=== PATIENT | male | born 1945 | race Caucasian/White ===

== ENCOUNTER 2022-02-13 10:10 | Emergency (ER) | payer OTHER, SELFPAY ==
[2022-02-13 10:24] VITALS: BP 143/69; PULSE 63; RESP 16; TEMP 36.8; O2SAT 100; BMI 24.3
--- NOTE | 2022-02-13 10:43 | PC.NURSE ---
right thumb irrigated with saline and chlorohexidine. Bleeding was controlled prior to irrigation. Did start to bleed again after. Applied pressure and is now contolled. Dr. Donahue notified.
--- NOTE | 2022-02-13 11:00 | ED.GENADULT ---
HPI - General Adult General Time Seen by Provider: 11:01 Date Seen: 02/13/22 Chief complaint: Laceration/Wound Stated complaint: cut on right hand Time Seen by Provider: 02/13/22 11:00 Source: patient History of Present Illness HPI narrative: Juan is a 76-year-old male presents emergency department with a right thumb laceration. Around 9:00 a.m. this morning patient was cutting some cabbage with a slicer, he ended up cutting the lateral aspect of his right thumb. Patient has been unable to control the bleeding of the last 2 hours, he has not any blood thinners. Range of motion is normal. He has minimal pain. He is up-to-date on his tetanus. Patient denies any numbness or tingling to the area. He has no other concerns at this time Related Data Home Medications Medication Instructions Recorded Confirmed hydrochlorothiazide PO 02/13/22 tamsulosin 0.4 mg capsule (Flomax) 0.4 mg PO DAILY 02/13/22 02/13/22 Allergies Allergy/AdvReac Type Severity Reaction Status Date / Time citalopram Allergy Unknown Verified 02/13/22 10:28 sertraline Allergy Unknown Verified 02/13/22 10:28 Review of Systems Status of ROS: Reports: 10 or more systems reviewed and unremarkable except as noted in History and below [facility] Medical History (Updated 02/13/22 @ 11:24 by Ubaldo Phillips MD) BPH (benign prostatic hyperplasia) Hypertension Surgical History (Updated 02/13/22 @ 10:30 by Araceli Pritchard RN) History of cholecystectomy Social History Smoking Status: Never smoker Do you use any of these nicotine containing products: None Second hand tobacco smoke exposure: No How often do you have a drink containing alcohol: 4 or more times a week How many standard drinks containing alcohol do you have on a typical day: 1 or 2 AUDIT-C Alcohol total score: 4 Non-prescribed substance use: denies use service: No Exam Narrative: Exam Narrative: General: No obvious distress HEENT: Pupils equal round reactive to light, extraocular muscles intact Neck: Supple Lungs: CTA Heart: Normal sinus rhythm Abdomen: Soft nontender Muscle skeletal: Right thumb: small 0.5 cm slice wound to lateral distal thumb, nail plate intact. FROM Neuro: Awake alert orient x3 Const: Vital Signs, click to edit/add: Vital Signs - 24 hr 02/13/22 10:24 Temperature 98.2 F Pulse Rate [Pulse Oximeter] 63 Respiratory Rate 16 Blood Pressure [Le ft Upper Arm] 143/69 H Pulse Oximetry 100 Course Course Hospital Course: Workup will include a application of Surgifoam, based on his type full no laceration repair to be complete, will allow healing by secondary intention. Reevaluation(s) Reevaluation #1: Surgifoam applied, bleeding has stopped, instructions given, he is up-to-date on his tetanus status. Plan to discharge, reasons to return given, all questions answered. Time: 11:33 Time: 11:33 Vital Signs Vital signs: Initial Vital Signs Temperature 98.2 F 02/13/22 10:24 Temperature Source Temporal Artery Scan 02/13/22 10:24 Pulse Rate 63 02/13/22 10:24 Pulse Rhythm 02/13/22 10:24 Respiratory Rate 16 02/13/22 10:24 Blood Pressure 143/69 H 02/13/22 10:24 Blood Pressure Mean 93 02/13/22 10:24 Blood Pressure Position Sitting 02/13/22 10:24 Pulse Oximetry 100 02/13/22 10:24 Oxygen Delivery Method 02/13/22 10:24 Vital Signs Temperature 98.2 F 02/13/22 10:24 Pulse Rate 63 02/13/22 10:24 Respiratory Rate 16 02/13/22 10:24 Blood Pressure 143/69 H 02/13/22 10:24 Pulse Oximetry 100 02/13/22 10:24 Temperature 98.2 F 02/13/22 10:24 Pulse Rate 63 02/13/22 10:24 Respiratory Rate 16 02/13/22 10:24 Blood Pressure 143/69 H 02/13/22 10:24 Pulse Oximetry 100 02/13/22 10:24 Discharge Plan Discharge Clinical Impression: Laceration of finger Patient Disposition: Home, Self-Care Condition: Improved Instructions: Finger Laceration (ED) Additional Instructions: Keep dressing until this evening or tomorrow, allow the surgifoam to fall off eventually. Clean with soap and water, can apply bacitracin ointment or vaseling to the area. Any increased redness, swelling or drainage to return. Activity Level: Activity as Tolerated Prescriptions: No Action hydrochlorothiazide PO 0RF tamsulosin [Flomax] 0.4 mg capsule 0.4 mg PO DAILY 0RF Follow Up/Referrals: Mehran Mello MD [Primary Care Provider] - Stand Alone Forms: [employer] Info Instructions
--- NOTE | 2022-02-13 11:12 | PC.NURSE ---
Dr Phillips in room.
--- NOTE | 2022-02-13 11:34 | ED_ITS ---
HPI - General Adult General Chief complaint: Laceration/Wound Stated complaint: cut on right hand Time Seen by Provider: 02/13/22 11:00 Source: patient Related Data Home Medications Medication Instructions Recorded Confirmed hydrochlorothiazide PO 02/13/22 tamsulosin 0.4 mg capsule (Flomax) 0.4 mg PO DAILY 02/13/22 02/13/22 Allergies Allergy/AdvReac Type Severity Reaction Status Date / Time citalopram Allergy Unknown Verified 02/13/22 10:28 sertraline Allergy Unknown Verified 02/13/22 10:28 [facility] Medical History (Updated 02/13/22 @ 11:24 by Ubaldo Phillips MD) BPH (benign prostatic hyperplasia) Hypertension Surgical History (Updated 02/13/22 @ 10:30 by Araceli Pritchard RN) History of cholecystectomy Social History Smoking Status: Never smoker Do you use any of these nicotine containing products: None Second hand tobacco smoke exposure: No How often do you have a drink containing alcohol: 4 or more times a week How many standard drinks containing alcohol do you have on a typical day: 1 or 2 AUDIT-C Alcohol total score: 4 Non-prescribed substance use: denies use service: No Exam Const: Vital Signs, click to edit/add: Vital Signs - 24 hr 02/13/22 10:24 Temperature 98.2 F Pulse Rate [Pulse Oximeter] 63 Respiratory Rate 16 Blood Pressure [Le ft Upper Arm] 143/69 H Pulse Oximetry 100 Course Course Hospital Course: Workup will include a application of Surgifoam, based on his type full no laceration repair to be complete, will allow healing by secondary intention. Reevaluation(s) Reevaluation #1: Surgifoam applied, bleeding has stopped, plan to discharge, he should follow up with his primary care provider as needed over the next 7-10 days. Written instructions given, reasons to return given. All questions answered. Time: 11:34 Vital Signs Vital signs: Initial Vital Signs Temperature 98.2 F 02/13/22 10:24 Temperature Source Temporal Artery Scan 02/13/22 10:24 Pulse Rate 63 02/13/22 10:24 Pulse Rhythm 02/13/22 10:24 Respiratory Rate 16 02/13/22 10:24 Blood Pressure 143/69 H 02/13/22 10:24 Blood Pressure Mean 93 02/13/22 10:24 Blood Pressure Position Sitting 02/13/22 10:24 Pulse Oximetry 100 02/13/22 10:24 Oxygen Delivery Method 02/13/22 10:24 Vital Signs Temperature 98.2 F 02/13/22 10:24 Pulse Rate 63 02/13/22 10:24 Respiratory Rate 16 02/13/22 10:24 Blood Pressure 143/69 H 02/13/22 10:24 Pulse Oximetry 100 02/13/22 10:24 Temperature 98.2 F 02/13/22 10:24 Pulse Rate 63 02/13/22 10:24 Respiratory Rate 16 02/13/22 10:24 Blood Pressure 143/69 H 02/13/22 10:24 Pulse Oximetry 100 02/13/22 10:24 Discharge Plan Discharge Clinical Impression: Laceration of finger Patient Disposition: Home, Self-Care Condition: Improved Instructions: Finger Laceration (ED) Additional Instructions: Keep dressing until this evening or tomorrow, allow the surgifoam to fall off eventually. Clean with soap and water, can apply bacitracin ointment or vaseling to the area. Any increased redness, swelling or drainage to return. Activity Level: Activity as Tolerated Prescriptions: No Action hydrochlorothiazide PO 0RF tamsulosin [Flomax] 0.4 mg capsule 0.4 mg PO DAILY 0RF Follow Up/Referrals: Mehran Mello MD [Primary Care Provider] - Stand Alone Forms: [employer] Info Instructions
--- OUTSIDE RECORDS SUMMARY | 2022-03-05 18:32 | XMS_ITS | Encounter Summary ---
:1945 Author Organization [facility] Address [address] [place] [address] Care Team Providers Name Role Phone Brianna Rios MD Unavailable Encounter Details Date Type Department Care Team Description 06/08/2018 Telephone [facility] Ear Nose and Patel, Keri Manuel MD Throat [address] [place], [place] [address] [place] [address] [facility] Floor [place] [phone] Social History Tobacco Use Types Packs/Day Years Used Date Never Assessed Sex Assigned at Date Recorded Not on file documented as of this encounter Miscellaneous Notes Telephone Encounter - Sara Donis - 06/08/2018 3:00 PM CST no notes from her he will need to call and get the referral faxed over to us our fax# [phone]. Thank you! [facility] documented in this encounter Plan of Treatment Not on filedocumented as of this encounter Visit Diagnoses Not on filedocumented in this encounter Care Teams Machine Group Leader Relationship Specialty Start Date End Date rBianna Rios, Referring Physician Student in organized 04/15 [facility] care [address] [place] [address] education/[place] [address] program documented as of this encounter
--- OUTSIDE RECORDS SUMMARY | 2022-03-05 18:32 | XMS_ITS | Clinical Summary ---
:1945 Author Organization [facility] Address [address] [place] [address] Care Team Providers Name Role Phone Brianna Rios MD Unavailable Allergies Active Allergy Reactions Severity Noted Date Comments Citalopram Other (See Comments) 05/25/2018 Pain an d sensitivity in genitals Medications Medication Sig Dispensed Refills Start Date End Date Status ferrous sulfate 325 Take 325 mg by 0 05/25/2018 Active (65 Fe) MG TBEC EC mouth tablet oxyCODONE IR TAKE 1-2 TABLETS 0 06/04/2018 Active (ROXICODONE) 5 MG BY MOUTH EVERY 4 tablet HOURS NEEDED Active Problems Problem Noted Date Acute pulmonary embolism 09/28/2015 Overview: Overview: Several on R side - 09/24/15 DVT (deep venous thrombosis) 09/19/2015 Iron deficiency anemia due to chronic blood loss 09/19 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 Hypertension 08/03/2015 Social History Tobacco Use Types Packs/Day Years Used Date Never Assessed Sex Assigned at Date Recorded Not on file Plan of Treatment Health Maintenance Due Date Last Done Comments ADVANCE CARE PLANNING 1945 ANNUAL REVIEW OF HM ORDERS 1945 CT COLONOGRAPHY 1945 FIT-DNA (Cologuard) 1945 FIT 1945 FLEX SIG 1945 COVID-19 Vaccine (#1) 1945 COLONOSCOPY 1956 COLORECTAL CANCER SCREENING 1956 HEPATITIS C SCREENING 1964 DTAP/TDAP/TD IMMUNIZATION (1 1971 - Tdap) LIPID 1981 ZOSTER IMMUNIZATION (1 of 2) 1996 AORTIC ANEURYSM SCREENING 2011 (SYSTEM ASSIGNED) FALL RISK ASSESSMENT 2011 MEDICARE ANNUAL WELLNESS 2011 VISIT Pneumococcal Vaccine: 65+ 2011 Years (1 - PCV) PHQ-2 (once per calendar 07/28/2021 06/15/2018 year) INFLUENZA VACCINE (#1) 2022 04/27/2018, 04/28/2015 HEPATITIS B IMMUNIZATION Aged Out No long er eligible based on patient's age to complete this to pic IPV IMMUNIZATION Aged Out No longer eligi ble based on patient's age to complete this to pic MENINGITIS IMMUNIZATION Aged Out No longe r eligible based on patient's age to complete this to pic Insurance Payer Benefit Plan Subscriber ID Effective Phone Address Typ e / Group Dates [employer] [place] [employer] [id number] 2018-Julian [phone] [facility] OFFICE O F [facility] [address] [facility] [address] [address] [place] [address] Care Teams Timber Feller Relationship Specialty Start Date End Date Brianna Rios, Referring Physician Student in organized 04/[address] education/[place] [address] program
--- OUTSIDE RECORDS SUMMARY | 2022-03-05 18:32 | XMS_ITS | Encounter Summary ---
:1945 Author Organization [facility] Address [address] [place] [address] Care Team Providers Name Role Phone Brianna Rios MD Unavailable Reason for Visit Reason Onset Date Comments *-*INCOMING RECORDS*-* 06/15/2018 Encounter Details Date Type Department Care Team Description 06/15/2018 PRE VISIT Health Ear Nose and Patel, Keri Manuel MD *-*INCOMING RECORDS*-* Throat [address] [facility] [address] [facility] [address] [place], [place] [id number] [phone] Social History Tobacco Use Types Packs/Day Years Used Date Never Assessed Sex Assigned at Date Recorded Not on file documented as of this encounter Miscellaneous Notes Telephone Encounter - Sara Donis - 06/09/2018 12:39 PM CST FUTURE VISIT INFORMATION FUTURE VISIT INFORMATION: ?? Date: 06/15/2018 ?? Time: 5:00 ?? Location: [facility] REFERRAL INFORMATION: ?? Referring provider: Brianna Rios ?? Referring providers clinic: [facility] ?? Reason for visit/diagnosis Recurrent Epistaxis, consult for injections RECORDS REQUESTED FROM: Clinic name Comments Records Status Imaging Status [facility] OFFICE VISIT: 04/09/2018, 03/24/2018 EXTERNAL NONE E GROUP MANAGER documented in this encounter Plan of Treatment Not on filedocumented as of this encounter Visit Diagnoses Not on filedocumented in this encounter Care Teams Stack Clerk Relationship Specialty Start Date End Date Blanca, Brianna, Referring Physician Student in organized 04/15 [facility] [address] [facility] education/[place] [address] program documented as of this encounter
--- OUTSIDE RECORDS SUMMARY | 2022-03-05 18:32 | XMS_ITS | Continuity of Care Document ---
:1945 Author Organization [facility] Care Team Providers Name Role Phone [facility] Unavailable Unavailable Problems Combined list of problems from Department of Defense and Veterans Affairs facilities. It does not include entries that were removed or entered in error. 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 (SNOMED CT 26648680) History of deep vein Active Condition Oct 29 [place] thrombosis 2016 [facility] Entered By: JHONY ROMANO Comment: LLE 08/2015 Hypertensive disorder Active Condition [facility] [facility] Insomnia Active Condition [place] ([facility]OC) Iron deficiency Active Condition [facility] anemia due to chronic (CBOC) blood loss Irritable bowel Active Condition [facility] syndrome with (CB[facility]) diarrhea Ocular migraine Active Condition [facility] ([facility]) Pulmonary embolism Active Condition Oct 292016 (CBOC) Entered By: JHONY ROMANO Comment: history of multiple small PEs in his right chest 08/2015 Routine General Active Condition [facility] Medical Examination HCS at a Health Care Facility * (ICD-9-CM V70.0) Varicose veins of Active Condition [facility] left lower limb (CBO C) Diagnosis: ICD-10-CM active Diagnosis [place] G47.9 Sleep disorder, [facility] unspecifiedwith Provider Comments: Sleep Disorder, unspecified Diagnosis: ICD-10-CM active Diagnosis [place] F41.9 Anxiety (CBOC) disorder, unspecifiedwith Provider Comments: Exposure to combat ([facility] [id number]) Diagnosis: ICD-10-CM active Diagnosis [place] 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 Provider Comments: HHT - Hereditary hemorrhagic telangiectasia ([facility] [id number]) Diagnosis: ICD-10-CM active Diagnosis [place] Z71.89 Other [facility] specified counselingwith Provider Comments: Other specified counseling Diagnosis: ICD-10-CM active Diagnosis [place] Z23 Encounter for (C BOC) immunizationwith Provider Comments: Encounter for Immunization Diagnosis: ICD-10-CM active Diagnosis [place] I10 Essential (CBOC) (primary) hypertensionwith Provider Comments: Hypertensive disorder ([facility] [id number]) Diagnosis: ICD-10-CM active Diagnosis [place] H90.3 Sensorineural [facility] hearing loss, bilateralwith Provider Comments: Sensorineural hearing loss, bilateral Diagnosis: ICD-10-CM active Diagnosis [place] R35.1 Nocturiawith V [facility] HCS Provider Comments: Nocturia Diagnosis: ICD-10-CM active Diagnosis [place] 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 Medications provided include 1) outpatient medications from the last 15 months, and 2) patient-reported medications. Medication Details Route Status Patient Prescription Prescription Last Ordering Order Source Instructions Expires Number Dispense Provider Date Date CARBOXYMETH INSTILL BOTH 12/09/2021 [id number] W WONG ZAMARRIPA 12/08/ [place] YLCELLULOSE 1 DROP EYES 2 ISTIN S 2020 [place] [facility] NA 0.25% IN BOTH HCS SOLN,OPH EYES TWICE A DAY FOR DRY EYES CHOLECALCIF TAKE ONE ORALLY ACTIVE POMIN 03/23 / [place] KEVIN 25MCG TABLET H N 2017 ER (1,000UNIT) BY MOUTH (CBOC ) TAB EVERY DAY CORAL TAKE 4 ORAL ACTIVE IMAN [place] 12/19/ ST. CALCIUM TAB CAPS WN 2006 CLOUD DAILY/TA [facility] B 500MG BY MOUTH FERROUS SO4 TAKE ONE ORALLY 12/15/2021 [id number] MONICA SMALL 12/14/ [place] 325MG TAB TABLET 1 2020 ER BY MOUTH SHAR (CBOC) TWO TIMES A DAY FOR IRON DEFICINE CY ANEMIA FERROUS TAKE 25 ORAL ACTIVE LITADA 12/19/ ST. SULFATE TAB MG BY WN 2006 CLOUD MOUTH [facility] DAILY FINASTERIDE TAKE ONE ORALLY ACTIVE 02/22/2023 [id number] CARI UMANZOR 02/22/ [place] 5MG TAB TABLET 2 MALIKA L 2021 [facility] BY MOUTH HCS EVERY DAY FOR PROSTATE FINASTERIDE TAKE ONE ORALLY DISCONT 03/01/2022 [id number] CARI UMANZOR 03/01/ [place] 5MG TAB TABLET INUED 2 MALIKA L 2020 [place] [facility] BY MOUTH HCS EVERY DAY FOR PROSTATE HYDROCHLORO TAKE ONE ORALLY SUSPEND 01/25/2023 [id number] GEOVANNY,CL 01/27/ [place] THIAZIDE TABLET ED 2 2021 ER 25MG TAB BY MOUTH SHAR (CBOC ) EVERY DAY HYDROCHLORO TAKE ONE ORALLY DISCONT 01/26/2022 [id number] GEOVANNY,CL 01/26/ [place] THIAZIDE TABLET INUED 2 2020 ER 25MG TAB BY MOUTH SHAR (CBOC ) EVERY DAY MAGNESIUM TAKE 200 ORAL ACTIVE IMAN [place] 12/19/ S T. TAB,EC MG TWO 2006 CLOUD TABS BY [facility] MOUTH DAILY NON VA MED USE ACTIVE POMIN 03/23/ [facility] [facility] NOT LISTED CALCIUM H N 2018 ER 1000 (CBOC) MG/PHOSP HORUS 500 MG/MAGNE SIUM 500 MG - 1 TABLET oral EVERY DAY OMEGA 3 TAKE 380 ORAL ACTIVE IMAN [place] 12/19/ ST. CAP/TAB MG BY 2006 CLOUD MOUTH [facility] DAILY POTASSIUM TAKE 520 ORAL ACTIVE LITADA 12/19/ S T. TAB MG BY 2006 CLOUD MOUTH [facility] THREE DAILY TAMSULOSIN TAKE TWO ORALLY ACTIVE 07/27/2022 [id number] TH OMAS,CL 07/29/ [place] HCL 0.4MG CAPSULES 2 2021 ER CAP BY MOUTH SHAR (CBOC) EVERY DAY FOR PROSTATE , FOR BLADDER EMPTYING TAMSULOSIN TAKE TWO ORALLY 07/19/2021 [id number] T HOMAS,CL 07/18/ [place] HCL 0.4MG CAPSULES 1 2019 ER CAP BY MOUTH SHAR (CBOC) EVERY DAY FOR PROSTATE , FOR BLADDER EMPTYING Allergies, Adverse Reactions, Alerts Combined list of allergies from Department of Defense and Veterans Affairs facilities. It does not include entries that were removed or entered in error. Substance Category Reaction Severity Reaction Status Date Comments S ource type Reported CITALOPRAM Propensity Visual Propensity active [place] to adverse disturbance to adverse 4 [place] [facility] reactions reactions HCS to drug to drug (finding) (finding) SERTRALINE Propensity Generalized Propensity active [place] to adverse aches and to adverse 3 [place] [facility] reactions pains reactions HCS to drug to drug (finding) (finding) Immunizations Combined list of available immunizations from the Department of Defense and Veterans Affairs facilities. 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 COVID-19 3 complet PFR; [place] (PFIZER), 2021 ed [id number]; ER MRNA, LNP-S, 02 (CBOC) PF, 30 2 MCG/0.3 ML DOSE, DAWNA-SUCROSE (AGES 12+ YEARS) COVID-19 3 complet PFR; [place] (PFIZER), 2020 ed [id number]; [place] [facility] MRNA, LNP-S, 02 HCS PF, 30 1 MCG/0.3 ML DOSE INFLUENZA, complet [place] INJECTABLE, 2020 ed [place] [facility] QUADRIVALENT, HCS PRESERVATIVE FREE COVID-19 2 complet PFR; [place] (PFIZER), 2020 ed [id number]; ER MRNA, LNP-S, (CBOC) PF, 30 1 MCG/0.3 ML DOSE COVID-19 1 complet PFR; [place] (PFIZER), 2020 ed [id number]; ER MRNA, LNP-S, 02 (CBOC) PF, 30 1 MCG/0.3 ML DOSE INFLUENZA, complet [place] INJECTABLE, 2019 ed ER QUADRIVALENT, (CBOC) PRESERVATIVE FREE ZOSTER 2 complet [place] EST RECOMBINANT 2019 ed ER (CBOC) ZOSTER 1 complet [place] EST RECOMBINANT 2018 ed ER (CBOC) INFLUENZA, complet [place] SEASONAL, 2019 ed [place] [facility] INJECTABLE, HC S PRESERVATIVE FREE INFLUENZA, complet [place] SEASONAL, 2018 ed ER INJECTABLE, (C BOC) PRESERVATIVE FREE INFLUENZA, complet [place] HIGH DOSE 2018 ed ER SEASONAL (CBOC ) INFLUENZA, complet [place] HIGH DOSE 2015 ed ER SEASONAL (CBOC ) INFLUENZA, complet [place] HIGH DOSE 2014 ed ER SEASONAL (CBOC ) PNEUMOCOCCAL complet Wyet h [facility] CONJUGATE PCV 2015 ed Pharm, ER 13 [id number], (CBOC) 10/11 INFLUENZA, complet [place] UNSPECIFIED 2013 ed ER FORMULATION (C BOC) PNEUMOCOCCAL, complet chanell k and [facility] UNSPECIFIED 2013 ed co ER FORMULATION [id number] (CBOC) [id number] ZOSTER LIVE complet merk and [facility] 2013 ed co ER [id number] (CBOC) 56pnm15 TDAP complet [facility]LA[facility]/SMI H AYWARD 2012 ed TH/[place]AH[place] CBOC LOT# [id number] A EXP: 04/13/15 INFLUENZA, complet ST. UNSPECIFIED 2005 ed CL OUD FORMULATION [facility] TD(ADULT) complet S T. UNSPECIFIED 2005 ed CL OUD FORMULATION [facility] INFLUENZA, complet ST. UNSPECIFIED 2004 ed CL OUD FORMULATION [facility] Results Combined list of recent chemistry, hematology and other laboratory results from Department of Defense and Veterans Affairs, ranging from 15 months to all on record, depending upon the facility. Order Results Value Reference Date Interpretation Specimen Commen ts Source Name Range COMPREHEN CREATININE 1.1 0.7 - 1.2 02/15 Specimen Type: PLASMA [place] SIVE [MASS/VOLUM /2021 No comment e ntered. IS [facility] METABOLIC E] IN SERUM Ordering Provider: MONICA RODRIGUEZ PANEL+MG OR PLASMA Report Relea sed Date/Time: Aug 14, 2021 11:15 AM Reporting Lab: [facility] [address] [place] [address] Performing Lab: [facility] [address] [place] [address] COMPREHEN UREA 15 8 - 02/15 Specimen Type: PLASMA [place] S[place] NITROGEN /2021 No comment ente red. IS [facility] METABOLIC [MASS/VOLUM Ordering Provider: MONICA RODRIGUEZ PANEL+MG E] IN SERUM Report Rel eased Date/Time: Aug 14, 2021 11:15 AM OR PLASMA Reporting Lab : [facility] [address] [place] [address] Performing Lab: [facility] [address] [place] [facility] [address] COMPREHEN GLUCOSE 96 74 - 100 02/15 Specimen Type : PLASMA [place] SIVE [MASS/VOLUM /2021 No comment e ntered. IS [facility] METABOLIC E] IN SERUM Ordering Provider: MONICA RODRIGUEZ PANEL+MG OR PLASMA Report Relea sed Date/Time: Aug 14, 2021 11:15 AM Reporting Lab: [facility] [address] [place] [facility] [address] Performing Lab: [facility] [address] [place] [facility] [address] COMPREHEN SODIUM 138 136 - 145 02/15 Specimen Typ e: PLASMA [place] SIVE [MOLES/VOLU No comment e ntered. IS [facility] METABOLIC ME] IN Ordering Prov ider: MONICA RODRIGUEZ PANEL+MG SERUM OR Report Releas ed Date/Time: Aug 14, 2021 11:15 AM PLASMA Reporting Lab: [facility] [address] [place] [facility] [address] Performing Lab: [facility] [address] [place] [facility] [address] COMPREHEN POTASSIUM 4.0 3.5 - 5.1 02/15 Specimen T ype: PLASMA [place] SIVE [MOLES/VOLU No comment e ntered. IS [facility] METABOLIC ME] IN Ordering Prov ider: MONICA RODRIGUEZ PANEL+MG SERUM OR Report Releas ed Date/Time: Aug 14, 2021 11:15 AM PLASMA Reporting Lab: [facility] [address] [place] [facility] [address] Performing Lab: [facility] [address] [place] [facility] [address] COMPREHEN CHLORIDE 104 98 - 107 02/15 Specimen Typ e: PLASMA [place] SIVE [MOLES/VOLU /2021 No comment e ntered. IS [facility] METABOLIC ME] IN Ordering Prov ider: MONICA RODRIGUEZ PANEL+MG SERUM OR Report Releas ed Date/Time: Aug 14, 2021 11:15 AM PLASMA Reporting Lab: [facility] [address] [place] [facility] [address] Performing Lab: [facility] [address] [place] [facility] [address] COMPREHEN CARBON 26 22 - 29 02/15 Specimen Type: PLASMA [place] DIOXIDE, /2021 No comment ente red. IS [facility] METABOLIC TOTAL Ordering Prov ider: MONICA RODRIGUEZ PANEL+MG [MOLES/VOLU Report Rel eased Date/Time: Aug 14, 2021 11:15 AM ME] IN Reporting Lab: [facility] SERUM OR ONE [place] [facility] [address] PLASMA Performing Lab: [facility] [address] [place] [address] COMPREHEN CALCIUM 9.6 8.4 - 10.2 02/15 Specimen Ty pe: PLASMA [place] SIVE [MASS/VOLUM /2021 No comment e ntered. IS [facility] METABOLIC E] IN SERUM Ordering Provider: MONICA RODRIGUEZ PANEL+MG OR PLASMA Report Relea sed Date/Time: Aug 14, 2021 11:15 AM Reporting Lab: [facility] [address] [place] [facility] [address] Performing Lab: [facility] [address] [place] [facility] [address] COMPREHEN PROTEIN 7.5 6.0 - 8.3 02/15 Specimen Typ e: PLASMA [place] SIVE [MASS/VOLUM /2021 No comment e ntered. IS [facility] METABOLIC E] IN SERUM Ordering Provider: MONICA RODRIGUEZ PANEL+MG OR PLASMA Report Relea sed Date/Time: Aug 14, 2021 11:15 AM Reporting Lab: [facility] [address] [place] [address] Performing Lab: [facility] [address] [place] [facility] [address] COMPREHEN ALBUMIN 4.0 3.5 - 5.2 02/15 Specimen Typ e: PLASMA [place] SIVE [MASS/VOLUM /2021 No comment e ntered. IS [facility] METABOLIC E] IN SERUM Ordering Provider: MONICA RODRIGUEZ PANEL+MG OR PLASMA Report Relea sed Date/Time: Aug 14, 2021 11:15 AM Reporting Lab: [facility] [address] [place] [address] Performing Lab: [facility] [address] [place] [address] COMPREHEN BILIRUBIN.T 0.8 0.2 - 1.2 02/15 Specimen Type: PLASMA [place] OTAL /2021 No comment enter ed. IS [facility] METABOLIC [MASS/VOLUM Ordering Provider: MONICA RODRIGUEZ PANEL+MG E] IN SERUM Report Rel eased Date/Time: Aug 14, 2021 11:15 AM OR PLASMA Reporting Lab : [facility] [address] [place] [address] Performing Lab: [facility] [address] [place] [address] COMPREHEN MAGNESIUM 2.0 1.6 - 2.6 02/15 Specimen T ype: PLASMA [place] [MASS/VOLUM /2021 No comment e ntered. IS [facility] METABOLIC E] IN SERUM Ordering Provider: MONICA RODRIGUEZ PANEL+MG OR PLASMA Report Relea sed Date/Time: Aug 14, 2021 11:15 AM Reporting Lab: [facility] [address] [place] [facility] [address] Performing Lab: [facility] [address] [place] [facility] [address] COMPREHEN ANION GAP 8 5 - 15 02/15 Specimen Typ e: PLASMA [place] IN SERUM OR /2021 No comment e ntered. IS [facility] METABOLIC PLASMA Ordering Prov ider: MONICA RODRIGUEZ PANEL+MG Report Release d Date/Time: Aug 14, 2021 11:15 AM Reporting Lab: [facility] [address] [place] [facility] [address] Performing Lab: [facility] [address] [place] [address] COMPREHEN ALKALINE 62 40 - 150 02/15 Specimen Typ e: PLASMA [place] PHOSPHATASE /2021 No comment e ntered. IS [facility] METABOLIC [ENZYMATIC Ordering P rovider: MONICA RODRIGUEZ PANEL+MG ACTIVITY/VO Report Rel eased Date/Time: Aug 14, 2021 11:15 AM LUME] IN Reporting Lab: [facility] SERUM OR ONE [facility] [place] [facility] [address] PLASMA Performing Lab: [facility] [address] [place] [facility] [address] COMPREHEN ALANINE 13 <55 - 55 02/15 Specimen Type : [place]ASMA [place] AMINOTRANSF /2021 No comment e ntered. IS [facility] METABOLIC ERASE Ordering Prov ider: MONICA RODRIGUEZ PANEL+MG [ENZYMATIC Report Rele ased Date/Time: Aug 14, 2021 11:15 AM ACTIVITY/VO Reporting L ab: [facility] LUME] IN [address] [place] [facility] [address] SERUM OR Performing Lab : [facility] PLASMA [address] [place] [facility] [address] COMPREHEN ASPARTATE 19 <34 - 34 02/15 Specimen Ty pe: PLASMA [place] AMINOTRANSF /2021 No comment e ntered. IS [facility] METABOLIC ERASE Ordering Prov ider: MONICA RODRIGUEZ PANEL+MG [ENZYMATIC Report Rele ased Date/Time: Aug 14, 2021 11:15 AM ACTIVITY/VO Reporting L ab: [facility] LUME] IN [address] [facility] [address] SERUM OR Performing Lab : [facility] PLASMA [address] [place] [facility] [address] COMPREHEN GLOMERULAR 70 60 02/15 Specimen Ty pe: PLASMA [place] FILTRATION /2021 No comment en tered. IS [facility] METABOLIC RATE/1.73 Ordering Pr ovider: MONICA RODRIGUEZ PANEL+MG SQ Report Release d Date/Time: Aug 14, 2021 11:15 AM M.PREDICTED Reporting L ab: [facility] [VOLUME [address] [place] [facility] [address] RATE/AREA] Performing L ab: [facility] IN SERUM, [address] [facility] [address] PLASMA OR BLOOD BY CREATININE- BASED FORMULA (CKD-EPI) CBC & LEUKOCYTES 4.33 4.0 - 11.0 02/15 Specimen T ype: BLOOD [place] DIFF [#/VOLUME] /2021 Comment: Aut omated Differential Performed IS [facility] IN BLOOD BY Ordering Pr ovider: MONICA RODRIGUEZ AUTOMATED Report Releas ed Date/Time: Aug 14, 2021 11:15 AM COUNT Reporting Lab: [facility] [address] [place] [facility] [address] Performing Lab: [facility] [address] [place] [facility] [address] CBC & ERYTHROCYTE 3.93 4.6 - 6.2 02/15 L Specimen T ype: BLOOD [place] DIFF S /2021 Comment: Automa armand Differential Performed IS [place] H[facility] [#/VOLUME] Ordering Pro vider: MONICA RODRIGUEZ IN BLOOD BY Report Rele ased Date/Time: Aug 14, 2021 11:15 AM AUTOMATED Reporting Lab : [facility] COUNT [address] [place] [facility] [address] Performing Lab: [facility] [address] [place] [facility] [address] CBC & HEMOGLOBIN 13.2 13.5 - 02/15 L Specimen Type : BLOOD [place] DIFF [MASS/VOLUM 17.9 /2021 Comment: Au tomated Differential Performed IS [place] [facility] E] IN BLOOD Ordering Pr ovider: MONICA RODRIGUEZ Report Released Date/Time: Aug 14, 2021 11:15 AM Reporting Lab: [facility] [address] [place] [facility] [address] Performing Lab: [facility] [address] [place] [facility] [address] CBC & HEMATOCRIT 39.1 41 - 54 02/15 L Specimen Type : BLOOD [place] DIFF [VOLUME /2021 Comment: Automa armand Differential Performed IS [facility] FRACTION] Ordering Prov ider: MONICA RODRIGUEZ OF BLOOD BY Report Rele ased Date/Time: Aug 14, 2021 11:15 AM AUTOMATED Reporting Lab : [facility] [address] [place] [facility] [address] Performing Lab: [facility] [address] [place] [facility] [address] CBC & MCV 99.5 80 - 100 02/15 Specimen Type: BLOOD [place] DIFF [ENTITIC /2021 Comment: Autom ated Differential Performed IS [facility] VOLUME] BY Ordering Pro vider: MONICA RODRIGUEZ AUTOMATED Report Releas ed Date/Time: Aug 14, 2021 11:15 AM COUNT Reporting Lab: [facility] [address] [facility] [address] Performing Lab: [facility] [address] [facility] [address] CBC & MCH 33.6 27 - 33 02/15 H Specimen Type: B LOOD [place] DIFF [ENTITIC /2021 Comment: Autom ated Differential Performed IS [facility] MASS] BY Ordering Provi tracy: MONICA RODRIGUEZ AUTOMATED Report Releas ed Date/Time: Aug 14, 2021 11:15 AM COUNT Reporting Lab: [facility] [address] [place] [facility] [address] Performing Lab: [facility] [address] [facility] [address] CBC & MCHC 33.8 32.0 - 02/15 Specimen Type: B LOOD [place] DIFF [MASS/VOLUM 37.5 /2021 Comment: Au tomated Differential Performed IS [facility] E] BY Ordering Provid er: MONICA RODRIGUEZ AUTOMATED Report Releas ed Date/Time: Aug 14, 2021 11:15 AM COUNT Reporting Lab: [facility] [address] [place] [address] Performing Lab: [facility] [address] [place] [address] CBC & PLATELETS 270 150 - 400 02/15 Specimen Typ e: BLOOD [place] DIFF [#/VOLUME] /2021 Comment: Aut omated Differential Performed IS [facility] IN BLOOD BY Ordering Pr ovider: MONICA RODRIGUEZ AUTOMATED Report Relea sed Date/Time: Aug 14, 2021 11:15 AM COUNT Reporting Lab: [facility] [address] [place] [facility] [address] Performing Lab: [facility] [address] [place] [facility] [address] CBC & PLATELET 10.0 7.4 - 10.4 02/15 Specimen Typ e: BLOOD [place] DIFF MEAN VOLUME /2021 Comment: Au tomated Differential Performed IS [facility] [ENTITIC Ordering Provi tracy: MONICA RODRIGUEZ VOLUME] IN Report Relea sed Date/Time: Aug 14, 2021 11:15 AM BLOOD BY Reporting Lab: [facility] AUTOMATED [address] [facility] [address] COUNT Performing Lab: [facility] [address] [place] [facility] [address] CBC & NEUTROPHILS 65.0 02/15 Specimen Typ e: BLOOD [place] DIFF /100 /2021 Comment: Automa armand Differential Performed IS [facility] LEUKOCYTES Ordering Pro vider: MONICA RODRIGUEZ IN BLOOD BY Report Rele ased Date/Time: Aug 14, 2021 11:15 AM MANUAL Reporting Lab: [facility] [address] [place] [facility] [address] Performing Lab: [facility] [address] [place] [facility] [address] CBC & LYMPHOCYTES 22.6 02/15 Specimen Typ e: BLOOD [place] DIFF /100 /2021 Comment: Automa armand Differential Performed IS [facility] LEUKOCYTES Ordering Pro vider: MONICA RODRIGUEZ IN BLOOD BY Report Rele ased Date/Time: Aug 14, 2021 11:15 AM MANUAL Reporting Lab: [facility] [address] [place] [facility] [address] Performing Lab: [facility] [address] [place] [facility] [address] CBC & MONOCYTES/1 9.9 02/15 Specimen Typ e: BLOOD [place] DIFF 00 Comment: Automa armand Differential Performed IS [facility] LEUKOCYTES Ordering Pro vider: MONICA RODRIGUEZ IN BLOOD BY Report Rele ased Date/Time: Aug 14, 2021 11:15 AM AUTOMATED Reporting Lab : [facility] [address] [place] [id number] Performing Lab: [facility] [address] [place] [id number] CBC & EOSINOPHILS 1.8 02/15 Specimen Typ e: BLOOD [place] DIFF /100 /2021 Comment: Automa armand Differential Performed IS [facility] LEUKOCYTES Ordering Pro vider: MONICA RODRIGUEZ IN BLOOD BY Report Rele ased Date/Time: Aug 14, 2021 11:15 AM AUTOMATED Reporting Lab : [facility] [address] [place] [facility] [address] Performing Lab: [facility] [address] [place] [facility] [address] CBC & BASOPHILS/1 0.2 02/15 Specimen Typ e: BLOOD [place] DIFF 00 Comment: Automa armand Differential Performed IS [facility] LEUKOCYTES Ordering Pro vider: MONICA RODRIGUEZ IN BLOOD BY Report Rele ased Date/Time: Aug 14, 2021 11:15 AM MANUAL Reporting Lab: [facility] [address] [place] [facility] [address] Performing Lab: [facility] [address] [place] [facility] [address] CBC & ERYTHROCYTE 13.1 11.5 - 02/15 Specimen Typ e: BLOOD [place] DIFF DISTRIBUTIO 14.5 Comment: Au tomated Differential Performed IS [facility] N WIDTH Ordering Provid er: MONICA RODRIGUEZ [RATIO] BY Report Relea sed Date/Time: Aug 14, 2021 11:15 AM AUTOMATED Reporting Lab : [facility] COUNT [address] [place] [facility] [address] Performing Lab: [facility] [address] [place] [facility] [address] CBC & LYMPHOCYTES 0.98 1.0 - 4.0 02/15 L Specimen T ype: BLOOD [place] DIFF [#/VOLUME] /2021 Comment: Aut omated Differential Performed IS [facility] IN BLOOD BY Ordering Pr ovider: MONICA RODRIGUEZ AUTOMATED Report Releas ed Date/Time: Aug 14, 2021 11:15 AM COUNT Reporting Lab: [facility] [address] [place] [facility] [address] Performing Lab: [facility] [address] [place] [facility] [address] CBC & MONOCYTES 0.43 0.1 - 1.0 02/15 Specimen Typ e: BLOOD [place] DIFF [#/VOLUME] /2021 Comment: Aut omated Differential Performed [place] [facility] IN [place]LOOD BY Ordering Pr ovider: MONICA RODRIGUEZ AUTOMATED Report Releas ed Date/Time: Aug 14, 2021 11:15 AM COUNT Reporting Lab: [facility] [address] [place] [facility] [address] Performing Lab: [facility] [address] [place] [facility] [address] CBC & NEUTROPHILS 2.81 2.0 - 7.7 02/15 Specimen T ype: BLOOD [place] DIFF [#/VOLUME] /2021 Comment: Aut omated Differential Performed [place] [facility] IN [place]LOOD BY Ordering Pr sarwater: MONICA RODRIGUEZ AUTOMATED Report Releas ed Date/Time: Aug 14, 2021 11:15 AM COUNT Reporting Lab: [facility] [address] [place] [facility] [address] Performing Lab: [facility] [address] [place] [facility] [address] CBC & EOSINOPHILS 0.08 0 - 0.5 02/15 Specimen Typ e: BLOOD [place] DIFF [#/VOLUME] /2021 Comment: Aut omated Differential Performed [place] [facility] IN [place]LOOD BY Ordering Pr ovider: MONICA RODRIGUEZ AUTOMATED Report Releas ed Date/Time: Aug 14, 2021 11:15 AM COUNT Reporting Lab: [facility] [address] [place] [facility] [address] Performing Lab: [facility] [address] [place] [facility] [address] CBC & BASOPHILS 0.01 0 - 0.2 02/15 Specimen Type: BLOOD [place] DIFF [#/VOLUME] /2021 Comment: Aut omated Differential Performed [place] [facility] IN [place]LOOD BY Ordering Pr ovider: MONICA RODRIGUEZ AUTOMATED Report Releas ed Date/Time: Aug 14, 2021 11:15 AM COUNT Reporting Lab: [facility] [address] [place] [facility] [address] Performing Lab: [facility] [address] [place] [facility] [address] CBC & IG(META,MYE 0.5 02/15 Specimen Typ e: BLOOD [place] DIFF LO,PRO) /2021 Comment: Automa armand Differential Performed IS [facility] Ordering Provid er: MONICA RODRIGUEZ Report Released Date/Time: Aug 14, 2021 11:15 AM Reporting Lab: [facility] [address] [place] [facility] [address] Performing Lab: [facility] [address] [place] [facility] [address] CBC & IMMATURE 0.02 0 - 0.1 02/15 Specimen Type: BLOOD [place] DIFF GRANULOCYTE /2021 Comment: Au tomated Differential Performed IS [facility] S Ordering Provid er: MONICA RODRIGUEZ [PRESENCE] Report Relea sed Date/Time: Aug 14, 2021 11:15 AM IN BLOOD BY Reporting L ab: [facility] AUTOMATED [facility] [address] COUNT Performing Lab: [facility] [address] [place] [facility] [address] IRON IRON 101 65 - 175 07/26 Specimen Type: PLASMA [facility] GROUP [MASS/VOLUM /2020 No comment e ntered. (CBOC) E] IN SERUM Ordering Pr ovider: EVANS SMALL OR PLASMA Report Releas ed Date/Time: Jul 26, 2021 10:58 AM Reporting Lab: [facility] [address] [place] [facility] [address] Performing Lab: [facility] [address] [place] [facility] [address] IRON IRON 200 250 - 425 07/26 L Specimen Type: PLASMA [facility] GROUP BINDING /2020 No comment enter ed. (CBOC) CAPACITY Ordering Provi tracy: EVANS SMALL [MASS/VOLUM Report Rele ased Date/Time: Jul 26, 2021 10:58 AM E] IN SERUM Reporting L ab: [facility] OR PLASMA [facility] [address] Performing Lab: [facility] [address] [place] [facility] [address] IRON FERRITIN 56.1 21.8 - 07/26 Specimen Type: PLASMA [place] GROUP [MASS/VOLUM 274.7 /2020 No comment e ntered. (CBOC) E] IN SERUM Ordering Pr ovider: EVANS SMALL OR PLASMA Report Releas ed Date/Time: Jul 26, 2021 10:58 AM Reporting Lab: [facility] [address] [place] [facility] [address] Performing Lab: [facility] ONE [facility] [address] [place] [address] IRON IRON 51 20 - 50 12/30 H Specimen Type: P MONA EDUARD[facility] GROUP SATURATION /2020 No comment en tered. (CBOC) Ordering Provid er: EVANS SMALL Report Released Date/Time: Jul 26, 2021 10:58 AM Reporting Lab: [facility] ONE [facility] [address] [place] MUÑ[place] [address] Performing Lab: [facility] [address] [place] [address] IRON TRANSFERRIN 160 163 - 382 12/30 L Specimen T ype: PLASMA [place] GROUP [MASS/VOLUM /2020 No comment e ntered. (CBOC) E] IN SERUM Ordering Pr ovider: EVANS SMALL OR PLASMA Report Releas ed Date/Time: Jul 26, 2021 10:58 AM Reporting Lab: [facility] ONE [facility] [address] [place] MUÑ[place] [address] Performing Lab: [facility] [address] [place] MUÑ[place] [address] BASIC CREATININE 1.1 0.7 - 1.2 12 Specimen Ty pe: PLASMA [place] METABOLIC [MASS/VOLUM /2020 No comment entered. (CBOC) PANEL+MG E] IN SERUM Ordering P rovider: EVANS SMALL OR PLASMA Report Releas ed Date/Time: Jul 26, 2021 10:58 AM Reporting Lab: [facility] [address] [place] MU[place] [address] Performing Lab: [facility] [address] [place] MUÑ[place] [address] BASIC UREA 15 8 - 26 12 Specimen Type: P MONA EDUARDO METABOLIC NITROGEN /2020 No comment en tered. (CBOC) PANEL+MG [MASS/VOLUM Ordering P rovider: EVANS SMALL E] IN SERUM Report Rele ased Date/Time: Jul 26, 2021 10:58 AM OR PLASMA Reporting Lab : [facility] ONE [facility] [address] [place] MUÑ[place] [address] Performing Lab: [facility] [address] [place] MUÑ[place] [address] BASIC GLUCOSE 91 74 - 100 12 Specimen Type: PLASMA [place] METABOLIC [MASS/VOLUM /2020 No comment entered. (CBOC) PANEL+MG E] IN SERUM Ordering P rovider: EVANS SMALL OR PLASMA Report Releas ed Date/Time: Jul 26, 2021 10:58 AM Reporting Lab: [facility] [address] [place] [address] Performing Lab: [facility] [address] [place] [address] BASIC SODIUM 138 136 - 145 07/26 Specimen Type: PLASMA EDU[place] METABOLIC [MOLES/VOLU /2020 No comment entered. (CBOC) PANEL+MG ME] IN Ordering Provi tracy: EVANS SMALL SERUM OR Report Release d Date/Time: Jul 26, 2021 10:58 AM PLASMA Reporting Lab: [facility] [address] [place] [address] Performing Lab: [facility] [address] [place] [address] BASIC POTASSIUM 4.2 3.5 - 5.1 07/26 Specimen Typ e: PLASMA ED[place] METABOLIC [MOLES/VOLU /2020 No comment entered. (CBOC) PANEL+MG ME] IN Ordering Provi tracy: EVANS SMALL SERUM OR Report Release d Date/Time: Jul 26, 2021 10:58 AM PLASMA Reporting Lab: [facility] [address] [place] MUÑ[place] [address] Performing Lab: [facility] [address] [place] [address] BASIC CHLORIDE 101 98 - 107 07/26 Specimen Type: PLASMA EDUARDO METABOLIC [MOLES/VOLU /2020 No comment entered. (CBOC) PANEL+MG ME] IN Ordering Provi tracy: EVANS SMALL SERUM OR Report Release d Date/Time: Jul 26, 2021 10:58 AM PLASMA Reporting Lab: [facility] [address] [place] MUÑ[place] [address] Performing Lab: [facility] [address] [place] [address] BASIC CARBON 28 - 29 07/26 Specimen Type: P MONA EDUARDO METABOLIC DIOXIDE, /2020 No comment en tered. (CBOC) PANEL+MG TOTAL Ordering Provi tracy: EVANS SMALL [MOLES/VOLU Report Rele ased Date/Time: Jul 26, 2021 10:58 AM ME] IN Reporting Lab: [facility] SER[facility] [address] MUÑ[place] [address] PLASMA Performing Lab: [facility] [address] [place] [address] BASIC CALCIUM 9.7 8.4 - 10.2 07/26 Specimen Type : PLASMA [place] METABOLIC [MASS/VOLUM /2020 No comment entered. (CBOC) PANEL+MG E] IN SERUM Ordering P rovider: EVANS SMALL OR PLASMA Report Releas ed Date/Time: Jul 26, 2021 10:58 AM Reporting Lab: [facility] [address] [place] [address] Performing Lab: [facility] [address] [place] [address] BASIC MAGNESIUM 2.0 1.6 - 2.6 07/26 Specimen Typ e: PLASMA [place] METABOLIC [MASS/VOLUM /2020 No comment entered. (CBOC) PANEL+MG E] IN SERUM Ordering P rovider: EVANS SMALL OR PLASMA Report Releas ed Date/Time: Jul 26, 2021 10:58 AM Reporting Lab: [facility] [address] [place] [address] Performing Lab: [facility] [address] [place] [address] BASIC ANION GAP 9 5 - 15 07/26 Specimen Type: PLASMA EDUARD[place] METABOLIC IN SERUM OR /2020 No comment entered. (CBOC) PANEL+MG PLASMA Ordering Provi tracy: EVANS SMALL Report Released Date/Time: Jul 26, 2021 10:58 AM Reporting Lab: [facility] [address] [place] [address] Performing Lab: [facility] [address] [place] [address] BASIC GLOMERULAR 65 60 07/26 Specimen Type : PLASMA EDUARDO METABOLIC FILTRATION /2020 No comment entered. (CBOC) PANEL+MG RATE/1.73 Ordering Pro vider: EVANS SMALL SQ Report Released Date/Time: Jul 26, 2021 10:58 AM M.PREDICTED Reporting L ab: [facility] [VOLUME [address] [place] [address] RATE/AREA] Performing L ab: [facility] IN SERUM, [address] [facility] [address] PLASMA OR BLOOD BY CREATININE- BASED FORMULA (CKD-EPI) LIPID CHOLESTEROL 140 <199 - 199 07/26 Specimen Type: PLASMA EDUARDO PANEL,NON [MASS/VOLUM /2020 No comment entered. (CBOC) -FASTING E] IN SERUM Ordering P rovider: EVANS SMALL OR PLASMA Report Releas ed Date/Time: Jul 26, 2021 10:58 AM Reporting Lab: [facility] [address] [place] [address] Performing Lab: [facility] [address] [place] MUÑ[place] [address] LIPID CHOLESTEROL 44 40 07/26 Specimen Typ e: PLASMA EDUARDO PANEL,NON IN HDL /2020 No comment ent ered. (CBOC) -FASTING [MASS/VOLUM Ordering P rovider: EVANS SMALL] IN SERUM Report Rele ased Date/Time: Jul 26, 2021 10:58 AM OR PLASMA Reporting Lab : [facility] [address] [place] [address] Performing Lab: [facility] ONE [facility] [address] [place] [address] LIPID CHOLESTEROL 78 <99 - 99 07/26 Specimen Ty pe: PLASMA EDUARDO PANEL,NON IN LDL /2020 No comment ent ered. (CBOC) -FASTING [MASS/VOLUM Ordering P rovider: EVANS SMALL] IN SERUM Report Rele ased Date/Time: Jul 26, 2021 10:58 AM OR PLASMA Reporting Lab : [facility] BY ONE [facility] [address] [place] MUÑ[place] [address] CALCULATION Performing Lab: [facility] ONE [facility] [address] [place] [address] LIPID CHOLESTEROL 18 <29 - 29 07/26 Specimen Ty pe: PLASMA EDUARDO PANEL,NON IN VLDL /2020 No comment ent ered. (CBOC) -FASTING [MASS/VOLUM Ordering P rovider: EVANS SMALL] IN SERUM Report Rele ased Date/Time: Jul 26, 2021 10:58 AM OR PLASMA Reporting Lab : [facility] BY ONE [facility] [address] [place] MUÑ[place] [address] CALCULATION Performing Lab: [facility] ONE [facility] [address] [place] MUÑ[place] [address] LIPID CHOLESTEROL 96 <129 - 129 07/26 Specimen Type: PLASMA EDUARDO PANEL,NON NON HDL /2020 No comment ent ered. (CBOC) -FASTING [MASS/VOLUM Ordering P rovider: EVANS SMALL] IN SERUM Report Rele ased Date/Time: Jul 26, 2021 10:58 AM OR PLASMA Reporting Lab : [facility] [address] [place] MUÑ[place] [address] Performing Lab: [facility] ONE [facility] [address] [place] [address] LIPID TRIGLYCERID 92 <149 - 149 07/26 Specimen Type: PLASMA EDUARD[place] PANEL,NON E No comment ent ered. (CBOC) -FASTING [MASS/VOLUM Ordering P rovider: EVANS SMALL E] IN SERUM Report Rele ased Date/Time: Jul 26, 2021 10:58 AM OR PLASMA Reporting Lab : [facility] [address] [place] [address] Performing Lab: [facility] [address] [place] [address] CBC LEUKOCYTES 4.47 4.0 - 11.0 07/26 Specimen T ype: BLOOD [place] [#/VOLUME] /2020 No comment en tered. (CBOC) IN BLOOD BY Ordering Pr ovider: EVANS SMALL AUTOMATED Report Releas ed Date/Time: Jul 26, 2021 10:58 AM COUNT Reporting Lab: [facility] [address] [place] MUÑ[place] [address] Performing Lab: [facility] [address] [place] [address] CBC ERYTHROCYTE 4.35 4.6 - 6.2 12/ L Specimen T ype: BLOOD [place] S /2020 No comment enter ed. (CBOC) [#/VOLUME] Ordering Pro vider: EVANS SMALL IN BLOOD BY Report Rele ased Date/Time: Jul 26, 2021 10:58 AM AUTOMATED Reporting Lab : [facility] COUNT [address] [place] [facility] [address] Performing Lab: [facility] [address] [place] MUÑ[place] [address] CBC HEMOGLOBIN 15.1 13.5 - 07/26 Specimen Type : BLOOD [place] [MASS/VOLUM 17.9 /2020 No comment e ntered. (CBOC) E] IN BLOOD Ordering Pr ovider: EVANS SMLAL Report Released Date/Time: Jul 26, 2021 10:58 AM Reporting Lab: [facility] [address] [place] MUÑ[place] [address] Performing Lab: [facility] [address] [place] [facility] [address] CBC HEMATOCRIT 45.1 41 - 54 07/26 Specimen Type : BLOOD [place] [VOLUME /2020 No comment enter ed. (CBOC) FRACTION] Ordering Prov ider: EVANS SMALL OF BLOOD BY Report Rele ased Date/Time: Jul 26, 2021 10:58 AM AUTOMATED Reporting Lab : [facility] COUNT [address] [place] MUÑ[place] [address] Performing Lab: [facility] [address] [place] [address] CBC MCV 103.7 80 - 100 12/30 H Specimen Type: BLOOD [place] [ENTITIC /2020 No comment ente red. (CBOC) VOLUME] BY Ordering Pro vider: EVANS SMALL AUTOMATED Report Releas ed Date/Time: Jul 26, 2021 10:58 AM COUNT Reporting Lab: [facility] [address] [place] [facility] [address] Performing Lab: [facility] [address] [place] [address] CBC MCH 34.7 27 - 33 12/30 H Specimen Type: B LOOD EDUARDO [ENTITIC /2020 No comment ente red. (CBOC) MASS] BY Ordering Provi tracy: EVANS SMALL AUTOMATED Report Releas ed Date/Time: Jul 26, 2021 10:58 AM COUNT Reporting Lab: [facility] [address] [place] MUÑ[place] [address] Performing Lab: [facility] [address] [place] MUÑ[place] [address] CBC MCHC 33.5 32.0 - 12 Specimen Type: B TIMOTHYOD EDUARDO [MASS/VOLUM 37.5 /2020 No comment e ntered. (CBOC) E] BY Ordering Provid er: EVANS SMALL AUTOMATED Report Releas ed Date/Time: Jul 26, 2021 10:58 AM COUNT Reporting Lab: [facility] [address] [place] [address] Performing Lab: [facility] [address] [place] [address] CBC PLATELETS 254 150 - 400 07/26 Specimen Typ e: BLOOD [place]O [#/VOLUME] /2020 No comment en tered. (CBOC) IN BLOOD BY Ordering Pr ovider: EVANS SMALL AUTOMATED Report Releas ed Date/Time: Jul 26, 2021 10:58 AM COUNT Reporting Lab: [facility] [address] [place] [facility] [address] Performing Lab: [facility] [address] [place] [facility] [address] CBC PLATELET 10.0 7.4 - 10.4 07/26 Specimen Typ e: BLOOD EDUARDO MEAN VOLUME /2020 No comment e ntered. (CBOC) [ENTITIC Ordering Provi tracy: EVANS SMALL VOLUME] IN Report Relea sed Date/Time: Jul 26, 2021 10:58 AM BLOOD BY Reporting Lab: [facility] AUTOMATED [address] [facility] [address] COUNT Performing Lab: [facility] [address] [place] [address] CBC ERYTHROCYTE 13.2 11.5 - 07/26 Specimen Typ e: BLOOD EDUARDO DISTRIBUTIO 14.5 No comment e ntered. (CBOC) N WIDTH Ordering Provid er: EVANS SMALL [RATIO] BY Report Relea sed Date/Time: Jul 26, 2021 10:58 AM AUTOMATED Reporting Lab : [facility] COUNT [address] [place] [facility] [address] Performing Lab: [facility] [address] [place] [facility] [address] PSA PROSTATE 0.36 <4.00 - 07/26 Specimen Type: [place] SPECIFIC AG 4.00 No comment e ntered. IS [place] [facility] [MASS/VOLUM Ordering Pr ovider: IRENE UMANZOR E] IN SERUM Report Rele ased Date/Time: Feb 28, 2021 05:23 PM OR PLASMA Reporting Lab : [facility] [address] [place] [facility] [address] Performing Lab: [facility] [address] [place] [facility] [address] IRON IRON 101 65 - 175 07/26 Specimen Type: SERUM [place] GROUP [MASS/VOLUM /2020 No comment e ntered. IS [facility] E] IN SERUM Ordering Pr ovider: MONICA RODRIGUEZ OR PLASMA Report Releas ed Date/Time: Jan 10, 2021 11:21 AM Reporting Lab: [facility] [address] [place] MUÑ[place] [address] Performing Lab: [facility] [address] [place] [facility] [address] IRON IRON 195 250 - 425 07/26 L Specimen Type: SERUM [place] GROUP /2020 No comment enter ed. IS [facility] CAPACITY Ordering Provi tracy: MONICA RODRIGUEZ [MASS/VOLUM Report Rele ased Date/Time: Jan 10, 2021 11:21 AM E] IN SERUM Reporting L ab: [facility] OR PLASMA [address] [facility] [address] Performing Lab: [facility] [address] [place] [facility] [address] IRON FERRITIN 47.4 21.8 - 07/26 Specimen Type: SERUM [place] GROUP [MASS/VOLUM 274.7 No comment e ntered. IS [facility] E] IN SERUM Ordering Pr ovider: MONICA RODRIGUEZ OR PLASMA Report Releas ed Date/Time: Jan 10, 2021 11:21 AM Reporting Lab: [facility] [address] [place] MUÑ[place] [address] Performing Lab: [facility] [address] [place] [address] IRON IRON 52 20 - 50 12/30 H Specimen Type: S SHAKIRA [place] GROUP SATURATION /2020 No comment en tered. IS [facility] Ordering Provid er: MONICA RODRIGUEZ Report Released Date/Time: Jan 10, 2021 11:21 AM Reporting Lab: [facility] [address] [place] [facility] [address] Performing Lab: [facility] [address] [place] [facility] [address] IRON TRANSFERRIN 156 163 - 382 12/30 L Specimen T ype: SERUM [place] GROUP [MASS/VOLUM /2020 No comment e ntered. IS [facility] E] IN SERUM Ordering Pr ovider: MONICA RODRIGUEZ OR PLASMA Report Releas ed Date/Time: Jan 10, 2021 11:21 AM Reporting Lab: [facility] [address] [place] MUÑ[place] [address] Performing Lab: [facility] [address] [place] [address] BASIC CREATININE 1.1 0.7 - 1.2 07/26 Specimen Ty pe: PLASMA [place] METABOLIC [MASS/VOLUM /2020 No comment entered. IS [facility] PANEL+MG E] IN SERUM Ordering P rovider: MONICA RODRIGUEZ OR PLASMA Report Releas ed Date/Time: Jan 10, 2021 11:21 AM Reporting Lab: [facility] [address] [place] [address] Performing Lab: [facility] [address] [place] [facility] [address] BASIC UREA 14 8 - 26 07/26 Specimen Type: P LASMA [place] METABOLIC NITROGEN /2020 No comment en tered. IS [facility] PANEL+MG [MASS/VOLUM Ordering P rovider: MONICA RODRIGUEZ E] IN SERUM Report Rele ased Date/Time: Jan 10, 2021 11:21 AM OR PLASMA Reporting Lab : [facility] [address] [place] [address] Performing Lab: [facility] [address] [place] [address] BASIC GLUCOSE 91 74 - 100 07/26 Specimen Type: PLASMA [place] METABOLIC [MASS/VOLUM /2020 No comment entered. IS [facility] PANEL+MG E] IN SERUM Ordering P rovider: MONICA RODRIGUEZ OR PLASMA Report Releas ed Date/Time: Jan 10, 2021 11:21 AM Reporting Lab: [facility] [address] [place] [address] Performing Lab: [facility] [address] [facility] [address] BASIC SODIUM 139 136 - 145 07/26 Specimen Type: PLASMA [place] METABOLIC [MOLES/VOLU No comment entered. IS [facility] PANEL+MG ME] IN Ordering Provi tracy: MONICA RODRIGUEZ SERUM OR Report Release d Date/Time: Jan 10, 2021 11:21 AM PLASMA Reporting Lab: [facility] [address] [place] [facility] [address] Performing Lab: [facility] [address] [facility] [address] BASIC POTASSIUM 4.2 3.5 - 5.1 07/26 Specimen Typ e: PLASMA [place] METABOLIC [MOLES/VOLU No comment entered. IS [facility] PANEL+MG ME] IN Ordering Provi tracy: MONICA RODRIGUEZ SERUM OR Report Release d Date/Time: Jan 10, 2021 11:21 AM PLASMA Reporting Lab: [facility] [address] [place] [address] Performing Lab: [facility] [address] [facility] [address] BASIC CHLORIDE 103 98 - 107 07/26 Specimen Type: PLASMA [place] METABOLIC [MOLES/VOLU /2020 No comment entered. IS [facility] PANEL+MG ME] IN Ordering Provi tracy: MONICA RODRIGUEZ SERUM OR Report Release d Date/Time: Jan 10, 2021 11:21 AM PLASMA Reporting Lab: [facility] [address] [place] [facility] [address] Performing Lab: [facility] [address] [place] [facility] [address] BASIC CARBON 28 22 - 29 07/26 Specimen Type: P LASMA [place] METABOLIC DIOXIDE, /2020 No comment en tered. IS [facility] PANEL+MG TOTAL Ordering Provi tracy: MONICA RODRIGUEZ [MOLES/VOLU Report Rele ased Date/Time: Jan 10, 2021 11:21 AM ME] IN Reporting Lab: [facility] SERUM OR [address] [facility] [address] PLASMA Performing Lab: [facility] [address] [place] [address] BASIC CALCIUM 9.6 8.4 - 10.2 07/26 Specimen Type : PLASMA [place] METABOLIC [MASS/VOLUM /2020 No comment entered. IS [place] [facility] PANEL+MG E] IN SERUM Ordering P rovider: MONICA RODRIGUEZ OR PLASMA Report [facility] ed Date/Time: Jan 10, 2021 11:21 AM Reporting Lab: [facility] [address] [place] [facility] [address] Performing Lab: [facility] [address] [place] [address] BASIC MAGNESIUM 2.1 1.6 - 2.6 07/26 Specimen Typ e: PLASMA [place] METABOLIC [MASS/VOLUM /2020 No comment entered. IS [facility] PANEL+MG E] IN SERUM Ordering P rovider: MONICA RODRIGUEZ OR PLASMA Report [facility] ed Date/Time: Jan 10, 2021 11:21 AM Reporting Lab: [facility] [address] [place] [facility] [address] Performing Lab: [facility] [address] [place]UNDIO MUÑ[place] [address] BASIC ANION GAP 8 5 - 15 07/26 Specimen Type: PLASMA [place] METABOLIC IN SERUM OR /2020 No comment entered. IS [place] [facility] PANEL+MG PLASMA Ordering Provi tracy: MONICA RODRIGUEZ Report Released Date/Time: Jan 10, 2021 11:21 AM Reporting Lab: [facility] [address] [place]UNDIO MUÑ[place] [address] Performing Lab: [facility] [address] [place] [facility] [address] BASIC GLOMERULAR 65 60 07/26 Specimen Type : PLASMA [place] METABOLIC FILTRATION /2020 No comment entered. IS [facility] PANEL+MG RATE/1.73 Ordering Pro vider: MONICA RODRIGUEZ SQ Report Released Date/Time: Jan 10, 2021 11:21 AM M.PREDICTED Reporting L ab: [facility] [VOLUME [address] [place]DIO MUÑ[place] [address] RATE/AREA] Performing L ab: [facility] IN SERUM, [address] RAJESH [facility] [address] PLASMA OR BLOOD BY CREATININE- BASED FORMULA (CKD-EPI) CBC & LEUKOCYTES 4.41 4.0 - 11.0 12 Specimen T ype: BLOOD [place] DIFF [#/VOLUME] /2020 Comment: Aut omated Differential Performed IS [place] [facility] IN BLOOD BY Ordering Pr ovider: MONICA RODRIGUEZ AUTOMATED Report Releas ed Date/Time: Jan 10, 2021 11:21 AM COUNT Reporting Lab: [facility] [address] [place] [facility] [address] Performing Lab: [facility] [address] [place] [facility] [address] CBC & ERYTHROCYTE 4.36 4.6 - 6.2 12/ L Specimen T ype: BLOOD [place] DIFF S /2020 Comment: Automa armand Differential Performed [place] [facility] [#/VOLUME] Ordering Pro vider: MONICA RODRIGUEZ IN BLOOD BY Report Rele ased Date/Time: Jan 10, 2021 11:21 AM AUTOMATED Reporting Lab : [facility] COUNT [address] [place] [facility] [address] Performing Lab: [facility] [address] [place] [facility] [address] CBC & HEMOGLOBIN 15.1 13.5 - 07/26 Specimen Type : BLOOD [place] DIFF [MASS/VOLUM 17.9 /2020 Comment: Au tomated Differential Performed IS [facility] E] IN BLOOD Ordering Pr ovider: MONICA RODRIGUEZ Report Released Date/Time: Jan 10, 2021 11:21 AM Reporting Lab: [facility] [address] [place] [facility] [address] Performing Lab: [facility] [address] [place] [facility] [address] CBC & HEMATOCRIT 45.0 41 - 54 07/26 Specimen Type : BLOOD [place] DIFF [VOLUME /2020 Comment: Automa armand Differential Performed [place] [facility] FRACTION] Ordering Prov ider: MONICA RODRIGUEZ OF BLOOD BY Report Rele ased Date/Time: Jan 10, 2021 11:21 AM AUTOMATED Reporting Lab : [facility] H[facility] COUNT [address] [place] [facility] [address] Performing Lab: [facility] [address] [place] [facility] [address] CBC & MCV 103.2 80 - 100 12/30 H Specimen Type: BLOOD [place] DIFF [ENTITIC /2020 Comment: Autom ated Differential Performed IS [facility] VOLUME] BY Ordering Pro vider: MONICA RODRIGUEZ AUTOMATED Report Releas ed Date/Time: Jan 10, 2021 11:21 AM COUNT Reporting Lab: [facility] [address] [place] [facility] [address] Performing Lab: [facility] [address] [place] [facility] [address] CBC & MCH 34.6 27 - 33 12/30 H Specimen Type: B LOOD [place] DIFF [ENTITIC /2020 Comment: Autom ated Differential Performed IS [facility] MASS] BY Ordering Provi tracy: MONICA RODRIGUZE AUTOMATED Report Releas ed Date/Time: Jan 10, 2021 11:21 AM COUNT Reporting Lab: [facility] [address] [place] [facility] [address] Performing Lab: [facility] [address] [place] [facility] [address] CBC & MCHC 33.6 32.0 - 12 Specimen Type: B LOOD [place] DIFF [MASS/VOLUM 37.5 /2020 Comment: Au tomated Differential Performed IS [facility] E] BY Ordering Provid er: MONICA RODRIGUEZ AUTOMATED Report Releas ed Date/Time: Jan 10, 2021 11:21 AM COUNT Reporting Lab: [facility] [address] [place] [facility] [address] Performing Lab: [facility] [address] [place] [facility] [address] CBC & PLATELETS 244 150 - 400 07/26 Specimen Typ e: BLOOD [place] DIFF [#/VOLUME] /2020 Comment: Aut omated Differential Performed IS [facility] IN BLOOD BY Ordering Pr ovider: MONICA RODRIGUEZ AUTOMATED Report Releas ed Date/Time: Jan 10, 2021 11:21 AM COUNT Reporting Lab: [facility] [address] [place] [facility] [address] Performing Lab: [facility] [address] [place] [facility] [address] CBC & PLATELET 10.0 7.4 - 10.4 07/26 Specimen Typ e: BLOOD [place] DIFF MEAN VOLUME /2020 Comment: Au tomated Differential Performed [place] [facility] [ENTITIC Ordering Provi tracy: MONICA RODRIGUEZ VOLUME] IN Report Relea sed Date/Time: Jan 10, 2021 11:21 AM BLOOD BY Reporting Lab: [facility] AUTOMATED [address] [facility] [address] COUNT Performing Lab: [facility] [address] [place] [facility] [address] CBC & NEUTROPHILS 65.8 07/26 Specimen Typ e: BLOOD [place] DIFF / Comment: Automa armand Differential Performed IS [facility] LEUKOCYTES Ordering Pro vider: MONICA RODRIGUEZ IN BLOOD BY Report Rele ased Date/Time: Jan 10, 2021 11:21 AM MANUAL Reporting Lab: [facility] COUNT [address] [place] [facility] [address] Performing Lab: [facility] [address] [place] [facility] [address] CBC & LYMPHOCYTES 21.5 07/26 Specimen Typ e: BLOOD [place] DIFF / Comment: Automa armand Differential Performed IS [facility] LEUKOCYTES Ordering Pro vider: MONICA RODRIGUEZ IN BLOOD BY Report Rele ased Date/Time: Jan 10, 2021 11:21 AM MANUAL Reporting Lab: [facility] COUNT [address] [place] [facility] [address] Performing Lab: [facility] [address] [place] [facility] [address] CBC & MONOCYTES/1 10.2 07/26 Specimen Typ e: BLOOD [place] DIFF Comment: Automa armand Differential Performed IS [facility] LEUKOCYTES Ordering Pro vider: MONICA RODRIGUEZ IN BLOOD BY Report Rele ased Date/Time: Jan 10, 2021 11:21 AM AUTOMATED Reporting Lab : [facility] COUNT [address] [place] [facility] [address] Performing Lab: [facility] [address] [place] [facility] [address] CBC & EOSINOPHILS 1.8 07/26 Specimen Typ e: BLOOD [place] DIFF / Comment: Automa armand Differential Performed IS [facility] LEUKOCYTES Ordering Pro vider: MONICA RODRIGUEZ IN BLOOD BY Report Rele ased Date/Time: Jan 10, 2021 11:21 AM AUTOMATED Reporting Lab : [facility] COUNT [address] [place] [facility] [address] Performing Lab: [facility] [address] [place] [facility] [address] CBC & BASOPHILS/1 0.5 07/26 Specimen Typ e: BLOOD [place] DIFF Comment: Automa armand Differential Performed IS [facility] LEUKOCYTES Ordering Pro vider: MONICA RODRIGUEZ IN BLOOD BY Report Rele ased Date/Time: Jan 10, 2021 11:21 AM MANUAL Reporting Lab: [facility] COUNT [address] [place] [facility] [address] Performing Lab: [facility] [address] [place] [facility] [address] CBC & ERYTHROCYTE 13.2 11.5 - 07/26 Specimen Typ e: BLOOD [place] DIFF DISTRIBUTIO 14.5 Comment: Au tomated Differential Performed [place] [facility] N WIDTH Ordering Provid er: MONICA RODRIGUEZ [RATIO] BY Report Relea sed Date/Time: Jan 10, 2021 11:21 AM AUTOMATED Reporting Lab : [facility] COUNT [address] [place] [facility] [address] Performing Lab: [facility] [address] [place] [facility] [address] CBC & LYMPHOCYTES 0.95 1.0 - 4.0 12 L Specimen T ype: BLOOD [place] DIFF [#/VOLUME] /2020 Comment: Aut omated Differential Performed [place] [facility] IN [place]LOOD BY Ordering Pr ovider: MONICA RODRIGUEZ AUTOMATED Report Releas ed Date/Time: Jan 10, 2021 11:21 AM COUNT Reporting Lab: [facility] [address] [place] [facility] [address] Performing Lab: [facility] [address] [place] [facility] [address] CBC & MONOCYTES 0.45 0.1 - 1.0 07/26 Specimen Typ e: BLOOD [place] DIFF [#/VOLUME] /2020 Comment: Aut omated Differential Performed [place] [facility] IN [place]LOOD BY Ordering Pr ovider: MONICA RODRIGUEZ AUTOMATED Report Releas ed Date/Time: Jan 10, 2021 11:21 AM COUNT Reporting Lab: [facility] [address] [place] [facility] [address] Performing Lab: [facility] [address] [place] [facility] [address] CBC & NEUTROPHILS 2.90 2.0 - 7.7 07/26 Specimen T ype: BLOOD [place] DIFF [#/VOLUME] /2020 Comment: Aut omated Differential Performed [place] [facility] IN [place]LOOD BY Ordering Pr ovider: MONICA RODRIGUEZ AUTOMATED Report Releas ed Date/Time: Jan 10, 2021 11:21 AM COUNT Reporting Lab: [facility] [address] [place] [facility] [address] Performing Lab: [facility] [address] [place] MUÑ[place] [address] CBC & EOSINOPHILS 0.08 0 - 0.5 07/26 Specimen Typ e: BLOOD [place] DIFF [#/VOLUME] /2020 Comment: Aut omated Differential Performed IS [facility] IN BLOOD BY Ordering Pr ovider: MONICA RODRIGUEZ AUTOMATED Report Releas ed Date/Time: Jan 10, 2021 11:21 AM COUNT Reporting Lab: [facility] [address] [place] MUÑ[place] [address] Performing Lab: [facility] [address] [place] [address] CBC & BASOPHILS 0.02 0 - 0.2 07/26 Specimen Type: BLOOD [place] DIFF [#/VOLUME] /2020 Comment: Aut omated Differential Performed IS [facility] IN BLOOD BY Ordering Pr ovider: MONICA RODRIGUEZ AUTOMATED Report Releas ed Date/Time: Jan 10, 2021 11:21 AM COUNT Reporting Lab: [facility] [address] [place] MUÑ[place] [address] Performing Lab: [facility] [address] [place] [address] CBC & IG(META,MYE 0.2 07/26 Specimen Typ e: BLOOD [place] DIFF LO,PRO) /2020 Comment: Automa armand Differential Performed IS [facility] Ordering Provid er: MONICA RODRIGUEZ Report Released Date/Time: Jan 10, 2021 11:21 AM Reporting Lab: [facility] [address] [place] MUÑ[place] [address] Performing Lab: [facility] [address] [place] [address] CBC & IMMATURE 0.01 0 - 0.1 07/26 Specimen Type: BLOOD [place] DIFF GRANULOCYTE /2020 Comment: Au tomated Differential Performed IS [facility] S Ordering Provid er: MONICA RODRIGUEZ [PRESENCE] Report Relea sed Date/Time: Jan 10, 2021 11:21 AM IN BLOOD BY Reporting L ab: [facility] AUTOMATED [address] [facility] [address] COUNT Performing Lab: [facility] [address] [place] [facility] [address] Vital Signs Combined list of inpatient and outpatient Vital Signs from Department of Defense and Veterans Affairs, ranging from 12 months to all on record, depending upon the facility. Vital Sign Value Date Comments Source SYSTOLIC BLOOD PRESSURE 136 07/26/2021 10:25:05 [facility] ([facility]) DIASTOLIC BLOOD PRESSURE 72 07/26/2021 10:25:05 [place] ([facility]) PULSE OXIMETRY 98% 07/26/2021 10:25:[address] ([facility]) WEIGHT 173.9 07/26/2021 10:25:05 [facility] ([facility]) BMI 26kg/m2 07/26/2021 10:25:05 [facility] ([facility]) PAIN 0 07/26/2021 10:25:05 [facility] ([facility]) HEIGHT 68.75 07/26/2021 10:25:05 [facility] ([facility]) TEMPERATURE 97.1 07/26/2021 10:25:05 [facility] ([facility]) PULSE 58 07/26/2021 10:25:05 [facility] ([facility]) RESPIRATION 18 07/26/2021 10:25:05 [facility] ([facility]) Encounters Combined list of: 1) Encounters from Department of Veterans Affairs facilities going back up to the last 18 months, not all [place] inpatient encounters are included; 2) Encounters from the Department of Defense facilities going back up to 280 months. Location Location Encounter Encounter Reason Attending ADM DC Stat us Disposition Source Details Type Number For Provider [place] [address]-9.61 Diagnos CHIROS,CHR 09/07 [place] 45 MINUTES [id number] is: ISTINE E E R 83 ICD-10- (CBOC) CM F41.9 Anxiety disorde r, unspeci fied
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
with Provide r Comment s: Exposur e to combat ([facility] [id number] 07) [place] [address]-5 Diagnos CHIROS,CHR 11/23 [place] 45 MINUTES [id number] is: ISTINE E /2020 E R 49 ICD-10- (CBOC) CM F41.9 Anxiety disorde r, unspeci fied
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
with Provide r Comment s: Sensori neural hearing loss, bilater al Outpatient 07106-7.61 O'HERNESTO, 01/30 [place] Encounter [id number] [place] [address]-6.61 Diagnos CHIROS,[facility] 02/06 [place] 45 MINUTES [id number] is: ISTINE E E R 37 ICD-10- (CBOC) CM F41.9 Anxiety disorde r, unspeci fied
with Provide r Comment s: Exposur e to combat ([facility] [id number] 07) OFFICE O/P 60480-7 Diagnos GABRIELLA,ANT 02/22 [place] EST [id number] is: ER MINIMAL 11 ICD-10- (CBOC) PROB CM I10 Essenti al (primar y) hyperte nsion<b r/>with Provide r Comment s: Hyperte nsive disorde r ([facility] [id number] 3) OFFICE 13674-9 [facility] [place] CONSULTATI [id number] is: EN L [place] ICD-10- HCS CM R35.1 Nocturi a
w ith Provide r Comment [place]: [place] [address]161 Diagnos CHIROS,CHR 03/21 [place] 45 MINUTES [id number] is: ISTINE E E R 32 ICD-10- (CBOC) CM F41.9 Anxiety disorde r, unspeci fied
with Provide r Comment s: Exposur e to combat ([facility] [id number] ) [place] [address]-9.61 Diagnos CHIROS,CHR 04/26 [place] 45 MINUTES [id number] is: ISTINE E /2020 O [place] ICD-10- HCS CM F41.9 Anxiety disorde r, unspeci fied
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
with Provide r Comment s: Sensori neural hearing loss, [place] [address]-0.61 Diagnos CHIRO,CHR 05/31 [place] 45 MINUTES [id number] is: ISTINE E /2020 O [place] ICD-10- HCS CM F41.9 Anxiety disorde r, unspeci fied
with Provide r Comment s: Exposur e to combat ([facility] [id number] ) [place] [address]-7 Diagnos CHIROS,CHR 07/05 [place] 45 MINUTES [id number] is: ISTINE E /2020 O [place] ICD-10- HCS CM F41.9 Anxiety disorde r, unspeci fied
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
with Provide r Comment s: Exposur e to combat ([facility] [id number] 07) [place] [address]061 Diagnos [facility] 10/30 [place] 45 MINUTES [id number] is: ISTINE E E R 17 ICD-10- (CBOC) CM F41.9 Anxiety disorde r, unspeci fied
with Provide r Comment s: Exposur e to combat ([facility] [id number] 07) ADM 91389-4 Diagnos GABRIELLA,ANT 10/30 [place] SARSCV2 [id number] is: HONY T ER 30MCG 34 ICD-10- (CBOC) TRS-SUCR B CM Z23 Encount er for immuniz ation<b r/>with Provide r Comment s: Encount [place]iz [place]ion [place] [address]-961 Diagnos TEE CHUN 12/26 [place] PHONE CALL [phone] is: [place] 5-10 MIN ICD-10- HCS CM Z71.89 Other specifi ed gambling counsellor ing<br/ >with Provide r Comment s: Other specifi [place] [address]-6 Diagnos CHIROS,CHR 01/01 [place] 45 MINUTES [id number] is: ISTINE E /2021 E R 47 ICD-10- (CBOC) CM F41.9 Anxiety disorde r, unspeci fied
with Provide r Comment s: Exposur e to combat ([facility] [id number] 07) HC PRO 49402-3 Diagnos [place] 01/10 [place] PHONE CALL [phone] is: EL R [place] 11-20 MIN ICD-10- HCS CM Z71.89 Other specifi ed gambling counsellor ing<br/ >with Provide r Comment s: Other specifi ed gambling counsellor ing Outpatient 09129-901/10 [place] Encounter [id number] OL[facility] Outpatient 89708-1.61 VALE,Ray 01/17 [place] Encounter [id number] ERRY OLIS [facility] Outpatient 55585-8.61 VIRGEN BOBO 01/17 [place] Encounter [id number] SSICA L RUDY S [facility] Outpatient [id number]. 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
with Provide r Comment s: Exposur e to combat ([facility] [id number]) Outpatient Diagnos MICHELLE WILKINS 02/27 [place] Encounter [id number] is: [place] ICD-10- [facility] CM G47.9 Sleep disorde r, unspeci fied
with Provide r Comment s: Sleep Disorde r, unspeci fied Social History Combined list of available smoking, tobacco, and other social [facility]. Social History Response Date Comment Source Type Tobacco smoking VA-TOBACCO FORMER 07/26/2021 [place] [facility] ([facility]) status NHIS USER History of tobacco VA-TOBACCO QUIT 15 07/26/2021 [facility] ([facility]) use YRS OR MORE History of tobacco VA-TOBACCO FORMER 07/18/2020 [facility] ([facility]) use USER History of tobacco VA-TOBACCO QUIT 15 10/20/2018 [facility] ([facility]) use YRS OR MORE History of tobacco FORMER TOBACCO USER 08/29/2017 [facility] ([facility]) use 7Y OR GREATER History of tobacco FORMER TOBACCO USER 03/18/2016 [facility] ([facility]) use 7Y OR GREATER History of tobacco FORMER TOBACCO USER 06/06/2015 [facility] ([facility]) use 7Y OR GREATER History of tobacco FORMER TOBACCO USER 04/08/2014 [facility] ([facility]) use 7Y OR GREATER History of tobacco FORMER TOBACCO USER 11/25/2012 [facility] use 7Y OR GREATER History of tobacco FORMER TOBACCO USER 12/14/2006 [facility] use 7Y OR GREATER History of tobacco LIFETIME 12/19/2005 He quit smoking on [facility] use NON-SMOKER/QUIT 7 1982. YRS OR> Plan of Care List of future care activities from [facility] Hospital facilities. Additional future care activities may be listed in the Assessment and Plan section. Date/Time Care Activity Care Activity Detail Facility 04/30/2022 AMBULATORY - PSYCHIATRY AMBULATORY - PSYCHIATRY [place] ([facility]) Advance Directives List of completed, amended, or rescinded Advance Directives on record at [facility] facilities. An actual copy of the Directive is not included. Date Advance Directive Provider Source 03/12/2019 ADVANCE DIRECTIVE KIARA BRANDT [facility] 03/12/2019 ADVANCE DIRECTIVE DISCUSSION KIARA BRANDT [facility]
--- OUTSIDE RECORDS SUMMARY | 2022-03-05 18:32 | XMS_ITS | Encounter Summary ---
:1945 Author Organization [facility] Address [address] [place] [address] Care Team Providers Name Role Phone Brianna Rios MD Unavailable Reason for Visit Reason Comments Epistaxis Encounter Details Date Type Department Care Team Description 06/15/2018 Office Visit [facility] [place], Keri Manuel MD Chronic maxillary sinusitis (Primary Dx) ; Thro[address] [facility] Nasal crusting; [address] [facility] [address] Acute recurrent maxillary sinusitis; 4th Floor [place], [place] HHT (hereditary hemorrhagic telangiectasia) (H) [place] [address] [phone] Social History Tobacco Use Types Packs/Day Years Used Date Never Assessed Sex Assigned at Date Recorded Not on file documented as of this encounter Progress Notes Lena Patel MD - 06/15/2018 5:00 PM CST Otolaryngology Adult Consultation Patient: Juan Marcum : 1945 Patient presents with: Consult: Chief Complaint Patient presents with ??? Epistaxis Referring Provider: Provider Not In System Consulting Physician: Lena Patel MD Assessment/Plan: subacute sinusitis on exam. Will provide antibiotics plus mupirocin ointment. Will have him work with team to schedule sclerotherapy session in future. We reviewed the risks and potential benefits of the treatment. I offered alternatives as well. Would perform in office as I do not see large posterior airway lesions to treat. 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 He was seen recently at the [facility], and referred here for potential treatment. I have seen several of his family members, and treated them with sclerotherapy. He would like to consider this. He has had screening tests, no concerns for brain, liver, lung issues. He also is concerned that there may be a lesion in he throat as most bleeding occurs when he is laying down. He also has a lot of phlegm in his throat. He has not had treatment for his nose bleeds up to this point.He does sinus rinses bid. Had a recent URI 5 weeks ago. No current outpatient prescriptions on file prior to visit. No current facility-administered medications on file prior to visit. Allergies Allergen Reactions ??? Citalopram Other (See Comments) Pain and sensitivity in genitals No past medical history on file. Review of Systems ENT ROS 06/15/2018 Constitutional Unexplained fatigue, Problems with sleep, Unexplained fever or night sweats Neurology Dizzy spells, Unexplained weakness Ears, Nose, Throat Ringing/noise in ears, Nasal congestion or drainage, Sore throat, Coughing up blood Cardiopulmonary Cough Musculoskeletal Sore or stiff joints, Swollen legs/feet Hematologic Bleeding problems Endocrine Heat or cold intolerance 14 point ROS neg other than the symptoms noted above. Physical Exam: General Assessment The patient is alert, oriented and in no acute distress. Head/Face/Scalp Grossly normal. Skin telangiectasias evident. Ears Normal canals, auricles and tympanic membranes. Nose External nose is straight, skin is normal. Intranasal exam (anterior rhinoscopy) reveals normal moist mucosa, turbinate tissue without edema, erythema or crusting. Septum mainly in the midline. Dried blood on septum, some lesions seen, purulence in middle meatus on right. Mouth Oral cavity shows healthy mucosa with out ulceration, masses involving the tongue, palate, buccal mucosa, floor of mouth or gingiva. Dentition in good repair. Oropharynx with normal tonsils, posterior wall and base of tongue. Multiple lesions on tongue and palate. Neck No significant adenopathy, thyroid or salivary gland abnormality. Procedure: Laryngoscopy performed to examine the upper airway for vascular lesions. Verbal consent is obtained.Topical anesthetic/decongestant solution is applied per patient request. The flexible endoscope was passed into each nasal cavity separately, and advanced to the larynx. Findings are as follows: Nasal passages with numerous telangiectasias, no large lesions, no active bleeding. Nasopharynx: Clear, no lesions, crusting or inflammation Base of tongue, vallecula, epiglottis, aryepiglottic folds, false vocal folds without large mucosallesions, masses or anatomic abnormality. Glottis with normal movement of vocal folds, normal mucosa and no lesions Pyriform sinuses, post-cricoid area, and posterior pharyngeal wall without lesions VERIFICATION TECHNICIAN documented in this encounter Nursing Notes Mike Yap - 06/15/2018 5:00 PM CST Chief Complaint Patient presents with ??? 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
--- OUTSIDE RECORDS SUMMARY | 2022-03-05 18:32 | XMS_ITS | Continuity of Care Document ---
:1945 Author Organization [facility] Address [address] [address] [place] [address] Phone Care Team Providers Name Role Phone Link Jaret MCCLELLAN Unavailable Unavailable Advance Directives Directive Yes / No Effective Date File Name No Information Encounters Encounter Practice Location Reason(s) Diagnoses Date Provider Provide rs Description For Visit Copied on Encounter TANNER Lindsay No Mar-0 Link Referring [facility] Information 7 Jaret. Provider: [facility], [address] [address], [address] [place], [place], [address], [id number], [place] [facility], [place], tel:[phone] , . [phone] Family History Family Member Type Diagnosis Age At Onset No Information Payers Payer name Insurance type Covered constitution party ID Authorization(s ) No Information Social History Type Description Quantity Date Captured Comments Sex Male Smoking Status No Information Chief Complaint And Reason For Visit No Information Reason For Referral Reason For Referral No Information Plan Of Treatment Date Type Action Status No Information History Of Present Illness Encounter Date Complaint History Of Present I llness No Information Functional Status Date Functional Assessment No Information Instructions Date Instruction Additional Informati on No Information Assessments Type Assessment Date No Information Patient Care Teams Name Effective Dates (start - stop) Status M embgabe No Information
== END 2022-02-13 11:37 | disposition home or self-care (01) ==
LOC: ED 11:35
PROVIDERS: Emergency Provider Student in an Organized Health Care Education/Training Program; PCP Family Medicine
DX: S61.011A Laceration without foreign body of right thumb without damage to nail, initial encounter (principal); W26.9XXA Contact with unspecified sharp object(s), initial encounter
CPT/HCPCS: 99282; 99283; 99284

== ENCOUNTER 2022-04-21 10:41 | Observation (INO) | payer OTHER, SELFPAY ==
[2022-04-21 10:43] VITALS: BP 167/78; PULSE 61; RESP 18; TEMP 36.4; O2SAT 97; BMI 24.4
--- OUTSIDE RECORDS SUMMARY | 2022-04-21 11:24 | XMS_ITS | Encounter Summary ---
:1945 Author Organization [facility] Address [address] [place] [address] Care Team Providers Name Role Phone Brianna Rios MD Unavailable Reason for Visit Reason Onset Date Comments *-*INCOMING RECORDS*-* 06/15/2018 Encounter Details Date Type Department Care Team Description 06/15/2018 PRE VISIT [facility], Keri Manuel MD *-*INCOMING RECORDS*-* Thro[address] [facility] [address] [facility] [address] [place], [place] [phone] Social History Tobacco Use Types Packs/Day Years Used Date Never Assessed Sex Assigned at Date Recorded Not on file documented as of this encounter Miscellaneous Notes Telephone Encounter - Sara Donis - 06/09/2018 12:39 PM CST FUTURE VISIT INFORMATION FUTURE VISIT INFORMATION: ?? Date: 06/15/2018 ?? Time: 5:00 ?? [place] [facility] [place] [place]: ?? Referring provider: Brianna Rios ?? Referring providers clinic: [facility] ?? 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
--- OUTSIDE RECORDS SUMMARY | 2022-04-21 11:24 | XMS_ITS | Encounter Summary ---
:1945 Author Organization [facility] Address [address] [place] [address] Care Team Providers Name Role Phone Brianna Rios MD Unavailable Reason for Visit Reason Comments Epistaxis Encounter Details Date Type Department Care Team Description 06/15/2018 Office Visit [facility] [place], Keri Manuel MD Chronic maxillary sinusitis (Primary Dx) ; Throat [address] [facility] Nasal crusting; [address] [facility] [address] Acute recurrent maxillary sinusitis; 4[address] Floor [place], [place] HHT (hereditary hemorrhagic telangiectasia) (H) [place] [phone] Social History Tobacco Use Types Packs/Day Years [...] HHT. He was seen recently at the [facility], and referred here for potential treatment. I [...] area, and posterior pharyngeal wall without lesions ETING FORECASTER documented in this encounter Nursing Notes Mike Yap - 06/15/2018 5:00 PM CST Chief Complaint Patient presents with ??? 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
--- OUTSIDE RECORDS SUMMARY | 2022-04-21 11:24 | XMS_ITS | Encounter Summary ---
:1945 Author Organization [facility] Address [address] [place] [address] Care Team Providers Name Role Phone Brianna Rios MD Unavailable Encounter Details Date Type Department Care Team Description 06/08/2018 Telephone [facility] and Patel, Keri Manuel MD Throat [address] [place], [place] [address] [place] [address] [facility] [place] [phone] Social History Tobacco Use Types Packs/Day Years Used Date Never Assessed Sex Assigned at Date Recorded Not on file documented as of this encounter Miscellaneous Notes Telephone Encounter - Sara Donis - 06/08/2018 3:00 PM CST no notes from her he will need to call and get the referral faxed over to us our fax# [phone]. Thank you! IED COMMUNICATIONS ARCHITECT documented in this encounter Plan of Treatment Not on filedocumented as of this encounter Visit Diagnoses Not on filedocumented in this encounter Care Teams C Python Developer Relationship Specialty Start Date End Date Brianna Rios, Referring Physician Student in organized 04/15 [facility] [address] [place] [address] education/[place] [address] program documented as of this encounter
--- OUTSIDE RECORDS SUMMARY | 2022-04-21 11:24 | XMS_ITS | Encounter Summary ---
:1945 Author Organization [facility] Address [address] [place] [address] Support Name Relationship Address Phone LILIANA TERRELL Unavailable Unavailable UCHE THORNTON MARLA Unavailable Unavailable UCHE THORNTON Insurance Providers: All historical and current Section Date Range: From patient's date of to the date document was created.This section includes the names of all active insurance providers for the patient. Insurance Type of Plan Start of End of Group Member Insurance Policy P atient's Provider Coverage Name Policy Policy Number ID Provider's Chen's Relationship Coverage Coverage Telephone Name to Policy Number Chen BLUELINK COMPREHEN MAXI Jul 28, [id number] [phone] JAZMIN ELAURENCEU PATIENT TPA SIVE E-O 2005 [id number] L [facility] PRESCRIPT [facility] Jul 28, KEERTHI [id number] [phone] MARIELOS IBARRA PATIENT SCRIPTS - ION E O 2005 [id number] SUBROGATIO TURKE N Y [employer] MCR MEDICARE MCR Jul 28, [id number] [phone] KLU DELMERMARIELOS PATIENT (WNR) ADVANTAGE (WNR) 2013 1 89 8 L [employer] MCR MEDICARE MCR Jul 28, [id number] KLU DELMERMARIELOS PATIENT (WNR) ADVANTAGE (WNR) 2013 1 89 0 L [employer] MCR MEDICARE MCR Jul 28, [id number] [phone] KLU DELMERMARIELOS PATIENT (WNR) ADVANTAGE (WNR) 2013 1 89 2 L Selected Encounter This section includes the information on record at [place] for the Encounter. Date/Time Encounter Type Encounter Reason Provider Source Description Jan 01, 2022 PSYTX W PT 45 MH INTG[facility] CARE ICD-10-CM F41.9 CHIROS,CHR ISTI 02:00 PM MINUTES IND Anxiety disorder, NE E unspecified with Provider Comments: Exposure to combat ([facility] [id number]) IHE Encounter Template Text not used by [place] Assessments - Encounter Diagnoses This section includes the primary and secondary diagnoses documented for the Encounter. Date/Time Primary/Secondary Diagnosis Name Provider Source Diagnosis Jan 01, 2022 PRIMARY Anxiety disorder, CHIROS,TEJAS RAMOS R 03:14 PM unspecified NE E ([facility]) Plan of Treatment: Future Appointments (+ 6 months) and Future Tests (+/- 45 days) The Plan of Treatment section includes future care activities for the patient from [facility] [place] [facility]. This section includes future appointments and future orders which are active, pending orscheduled.Future Appointments This section includes appointments that were scheduled to occur 6 months from the date of the Encounter, up to a maximum of 20 appointments. The data comes from all [place] treatment facilities. Appointment Date/Time Appointment Type Appointment Facili ty Name Feb 15, 2022 10:15 AM AMBULATORY - NONE [facility] ([facility]) Feb 15, 2022 12:43 PM AMBULATORY - NONE [facility] Feb 22, 2022 02:30 PM AMBULATORY - MEDICINE [facility] Feb 26, 2022 11:00 AM AMBULATORY - PSYCHIATRY [facility] ([facility]) Apr 30, 2022 11:00 AM AMBULATORY - PSYCHIATRY [facility] ([facility]) Jun 25, 2022 09:30 AM AMBULATORY - NONE [facility] ([facility]) Jun 28, 2022 01:00 PM AMBULATORY - MEDICINE [facility] Social History: Smoking Status (Most current) and Tobacco Use (All prior to encounter date) This section includes the most current, and the historical, smoking and tobacco-related health factors from the [place] facility where the Encounter took place.Current Smoking Status This section includes the most current smoking, or tobacco-related health factor, from the [place] facility where the Encounter took place. Date/Time Current Smoking Status Comment Facility Jul 26, 2021 10:15 AM [place]-TOBACCO QUIT 15 YRS OR MORE [facility] ([facility]) Tobacco Use History This section includes a history of the smoking, or tobacco- related health factors, that were collected on or before the date of the Encounter. The data comes from the [place] facility where the Encounter took place. Date/Time Smoking Status/Tobacco Use Comment Facil ity Jul 26, 2021 10:15 AM VA-TOBACCO QUIT 15 YRS OR MORE [facility] ([facility]) Jul 18, 2020 01:45 PM VA-TOBACCO FORMER USER [facility] ([facility]) Jul 18, 2020 01:45 PM VA-TOBACCO QUIT 15 YRS OR MORE [facility] ([facility]) Oct 20, 2018 09:43 AM VA-TOBACCO FORMER USER [facility] ([facility]) Oct 20, 2018 09:43 AM VA-TOBACCO QUIT 15 YRS OR MORE [facility] ([facility]) Aug 29, 2017 10:26 AM FORMER TOBACCO USER 7Y OR GREATER [facility] ([facility]) Mar 18, 2016 10:08 AM FORMER TOBACCO USER 7Y OR GREATER [facility] ([facility]) Jun 06, 2015 12:30 PM FORMER TOBACCO USER 7Y OR GREATER [facility] ([facility]) Apr 08, 2014 09:02 AM FORMER TOBACCO USER 7Y OR GREATER [facility] ([facility]) Advance Directives: All historical and current Section Date Range: From patient's date of to the date document was created. This section includes ALL of a patient's completed or amended [place] Advance and Rescinded Directives. The entries below indicate that a directive exists for the patient, but an actual copy is not included with this document. The data comes from all [place] facilities. Date Advance Directives Provider Source Mar 12, 2019 ADVANCE DIRECTIVE KIARA BRANDT [facility] Mar 12, 2019 ADVANCE DIRECTIVE DISCUSSION KIARA BRANDT [facility] Encounter Notes: All associated encounter notes This section contains the clinical notes associated to the Encounter. Date/Time Encounter Note(s) Provider Source Jan 01, 2022 02:00 PM MENTAL HEALTH NOTE: BRYAN TRIPP ([facility]) LOCAL TITLE: MH PROGRESS NOTE STANDARD TITLE: MENTAL HEALTH NOTE DATE OF NOTE: JAN 01, 2022@14:00 ENTRY DATE: JAN 01, 2022@15:04:52 AUTHOR: BRYAN TRIPP EXP COSIGNER: URGENCY: STATUS: COMPLETED Individual Psychotherapy: 50 minutes face to fac e Informed consent: patient reviewed purpo se of therapy, privacy protections and limitations at his initial v isit with this expert medical writer. He consented to care face to face, and then vvc as well during the pandemic. Today is is seen in [facility]. S/O - Patient on time for se ssion. Some tearfulness today in processing feelings around losses (of relationsh ips, people dying in his social group). Normalizing feelings and considering how he does (and can co ntinue to) make space for the pain he has around this whil e also making sure to show up to what matters to him day to day in his life. Reviewing progress in erapy and the increases in compassion (to self and others), lowered judgmen t of self and others, willingness to be messy (as a full human being ). Handouts: none today Problem for which patient treated today: Exposure to combat ([facility] [id number]) - Anxiety dis order, unspecified (ICD-10-CM F41.9) (Primary) Mental Status: Mood: mild anxiety Affect: Appropriate, Full-Range Speech: Normal rate, Normal rhythm, Normal volum e Thought Content: Normal Thought Processes: Logical, Goal Oriented Suicidality: Absent Homicidality: Absent Hallucinations: Absent Delusions: Absent Oriented: Fully Oriented Judgement: good Insight: good Progress Toward Goals: overall patient doing wel l, using skills with good effect P/ update to treatment plan - Continue individua l psychotherapy, f/u in early February /catia/ BRYAN TRIPP, PHD, LP PSYCHOLOGIST Signed: 01/01/2022 15:14
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
--- OUTSIDE RECORDS SUMMARY | 2022-04-21 11:24 | XMS_ITS | Clinical Summary ---
:1945 Author Organization [facility] Address [address] [place] [address] Care Team Providers Name Role Phone Brianna [...] Address Typ e / Group Dates [employer] [facility] [id number] 2018-Julian [phone] [facility] OFFICE O [facility] [address] [facility] [address] [address] [place] [address] Care Teams Perioperative Assistant Relationship Specialty Start Date End Date Brianna Rios, Referring Physician Student in organized 04/[address] education/[place] [address] program
--- OUTSIDE RECORDS SUMMARY | 2022-04-21 11:24 | XMS_ITS | Continuity of Care Document ---
:1945 Author Organization [facility] Care Team Providers Name Role Phone [facility] Unavailable Unavailable Problems Combined list of problems from Department of Defense and Veterans Affairs facilities. It does not include entries that were removed or entered in error. 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 (SNOMED CT 46125668) 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 thrombosis 2016 [facility] Entered By: JHONY ROMANO Comment: LLE 08/2015 Hypertensive disorder Active Condition [facility] Insomnia Active Condition [facility] ([facility]) Iron deficiency Active Condition [facility] anemia due to chronic ([facility]OC) blood loss Irritable bowel Active Condition [facility] syndrome with ([facility]) diarrhea Ocular migraine Active Condition [facility] ([facility]) Pulmonary embolism Active Condition Oct 292016 (CBOC) Entered By: JHONY ROMANO Comment: history of multiple small PEs in his right chest 08/2015 Routine General Active Condition [facility] Medical Examination HCS at a Health Care Facility * (ICD-9-CM V70.0) Varicose veins of Active Condition [facility] left lower limb (CBO C) Diagnosis: ICD-10-CM Active Diagnosis [facility] G47.9 [facility] disorder, [facility] unspecifiedwith Provider Comments: Sleep Disorder, unspecified Diagnosis: ICD-10-CM Active Diagnosis [facility] F41.9 Anxiety (CBOC) disorder, unspecifiedwith Provider Comments: Exposure to combat ([facility] 454700383) Diagnosis: ICD-10-CM Active Diagnosis [facility] 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 Provider Comments: HHT - Hereditary hemorrhagic telangiectasia ([facility] [id number]) Diagnosis: ICD-10-CM Active Diagnosis [facility] Z71.89 Other [facility] specified counselingwith Provider Comments: Other specified counseling Diagnosis: ICD-10-CM Active Diagnosis [facility] Z23 Encounter for (C BOC) immunizationwith Provider Comments: Encounter for Immunization Diagnosis: ICD-10-CM Active Diagnosis [facility] I10 Essential (CBOC) (primary) hypertensionwith Provider Comments: Hypertensive disorder ([facility] [id number]) Diagnosis: ICD-10-CM Active Diagnosis [facility] H90.3 Sensorineural [facility] hearing loss, bilateralwith Provider Comments: Sensorineural hearing loss, bilateral Diagnosis: ICD-10-CM Active Diagnosis [facility] R35.1 Nocturiawith V A HCS Provider Comments: Nocturia Diagnosis: ICD-10-CM Active Diagnosis [facility] H25.813 [facility] forms of age-related [...] Provider Date Date CARBOXYMETH INSTILL BOTH 12/09/2021 [id number] W WONG ZAMARRIPA 12/08/ [place] YLCELLULOSE 1 [...] MOUTH FERROUS SO4 TAKE ONE ORALLY 12/15/2021 [id number] MONICA SMALL 12/14/ [facility] 325MG TAB TABLET 1 2020 ER BY MOUTH SHAR (CBOC) TWO TIMES A DAY FOR IRON DEFICINE CY ANEMIA FERROUS TAKE 25 ORAL ACTIVE LITADA 12/19/ ST. SULFATE TAB MG BY WN 2006 CLOUD MOUTH [facility] DAILY FINASTERIDE TAKE ONE ORALLY ACTIVE 02/22/2023 [id number] CARI UMANZOR 02/22/ [place] 5MG TAB TABLET 2 MALIKA L 2021 [facility] BY [facility]OUTH HCS EVERY DAY FOR PROSTATE FINASTERIDE TAKE ONE ORALLY DISCONT 03/01/2022 [id number] CARI UMANZOR 03/01/ [place] 5MG TAB TABLET INUED 2 MALIKA L 2020 [facility] BY [facility]TH [facility] EVERY DAY FOR PROSTATE HYDROCHLORO TAKE ONE ORALLY ACTIVE 01/25/2023 [id number] GEOVANNY,CL 01/27/ [facility] THIAZIDE TABLET 2 AIR2021 ER 25MG TAB BY MOUTH SHAR (CBOC ) EVERY DAY HYDROCHLORO TAKE ONE ORALLY DISCONT 01/26/2022 [id number] GEOVANNY,CL 01/26/ [facility] THIAZIDE TABLET INUED 2 2020 ER 25MG TAB BY MOUTH SHAR (CBOC ) EVERY DAY MAGNESIUM TAKE 200 ORAL ACTIVE LITADA 12/19/ S T. TAB,EC MG TWO 2006 CLOUD TABS BY [facility] MOUTH DAILY NON [facility] MED USE ACTIVE POMIN 03/23/ [facility] NOT LISTED CALCIUM H N 2018 ER 1000 (CBOC) MG/PHOSP HORUS 500 MG/MAGNE SIUM 500 MG - 1 TABLET oral EVERY DAY OMEGA 3 TAKE 380 ORAL ACTIVE IMAN [place] 12/19/ ST. CAP/TAB MG BY 2006 CLOUD MOUTH [facility] DAILY POTASSIUM TAKE 520 ORAL ACTIVE LITADA 12/19/ S T. 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 COVID-19 3 complet PFR; RO [facility] (PFIZER), 2021 ed [id number]; ER MRNA, LNP-S, 02 (CBOC) PF, 30 2 MCG/0.3 ML DOSE, DAWNA-SUCROSE (AGES 12+ YEARS) COVID-19 3 complet PFR; TN [place] (PFIZER), 2020 ed [id number]; OL IS [facility] MRNA, LNP-S, 02 HCS PF, 30 1 MCG/0.3 ML DOSE INFLUENZA, complet [place] INJECTABLE, 2020 ed [facility] IS [facility] QUADRIVALENT, HCS PRESERVATIVE FREE COVID-19 2 complet PFR; RO CHEST (PFIZER), 2020 ed [id number]; ER MRNA, LNP-S, (CBOC) PF, 30 1 MCG/0.3 ML DOSE COVID-19 1 complet PFR; RO CHEST (PFIZER), 2020 ed [id number]; ER MRNA, LNP-S, 02 (CBOC) PF, 30 [...] (CBOC ) INFLUENZA, complet [facility] HIGH DOSE 2016 ed ER SEASONAL (CBOC ) INFLUENZA, complet [facility] HIGH DOSE 2014 ed ER SEASONAL (CBOC ) PNEUMOCOCCAL complet Wyet h [facility] CONJUGATE PCV 2015 ed Pharm, ER 13 [id number], (CBOC) 10/11 INFLUENZA, complet [facility] UNSPECIFIED 2013 ed ER FORMULATION (C BOC) PNEUMOCOCCAL, complet chanell k and [facility] UNSPECIFIED 2013 ed co ER FORMULATION [id number] (CBOC) [id number] ZOSTER LIVE complet merk and [facility] 2013 ed co ER [id number] (CBOC) 21mcz60 TDAP complet GLAXO/SMI H AYWARD 2012 ed TH/LEAHY CBOC LOT# [id number] A EXP: 04/13/15 INFLUENZA, complet ST. UNSPECIFIED 2005 ed CL OUD FORMULATION [facility] TD(ADULT) complet S T. UNSPECIFIED 2005 ed CL OUD FORMULATION [facility] INFLUENZA, complet ST. UNSPECIFIED 2004 ed CL OUD FORMULATION [facility] Results Combined list of recent chemistry, hematology and other laboratory results from Department of Defense and Veterans Affairs, ranging from 15 months to all on record, depending upon the facility. Order Results Value Reference Date Interpretation Specimen Commen ts Source Name Range COMPREHEN CREATININE 1.1 0.7 - 1.2 02/15 Specimen Type: PLASMA [place] [MASS/VOLUM /2021 No comment e ntered. IS [facility] METABOLIC E] IN SERUM Ordering Provider: MONICA RODRIGUEZ PANEL+MG OR PLASMA Report Relea sed Date/Time: Aug 14, 2021 11:15 AM Reporting Lab: [facility] [address] [place] [address] Performing Lab: [facility] [address] [place] [address] COMPREHEN UREA 15 8 - 02/15 Specimen Type: PLASMA [place] NITROGEN /2021 No comment ente red. IS [facility] METABOLIC [MASS/VOLUM Ordering Provider: MONICA RODRIGUEZ PANEL+MG E] IN SERUM Report Rel eased Date/Time: Aug 14, 2021 11:15 AM OR PLASMA Reporting Lab : [facility] [address] [place] [address] Performing Lab: [facility] [address] [place] [address] COMPREHEN GLUCOSE 96 74 - 100 02/15 Specimen Type : PLASMA [place] [MASS/VOLUM /2021 No comment e ntered. IS [facility] METABOLIC E] IN SERUM Ordering Provider: MONICA RODRIGUEZ PANEL+MG OR PLASMA Report Relea sed Date/Time: Aug 14, 2021 11:15 AM Reporting Lab: [facility] [address] [place] [facility] [address] Performing Lab: [facility] [address] [place] [facility] [address] COMPREHEN SODIUM 138 136 - 145 02/15 Specimen Typ e: PLASMA [place] [MOLES/VOLU /2021 No comment e ntered. IS [facility] METABOLIC ME] IN Ordering Prov ider: MONICA RODRIGUEZ PANEL+MG SERUM OR Report Releas ed Date/Time: Aug 14, 2021 11:15 AM PLASMA Reporting Lab: [facility] [address] [place] [facility] [address] Performing Lab: [facility] [address] [place] [facility] [address] COMPREHEN POTASSIUM 4.0 3.5 - 5.1 02/15 Specimen T ype: PLASMA [place] S[place] [MOLES/VOLU /2021 No comment e ntered. IS [facility] METABOLIC ME] IN Ordering Prov ider: MONICA RODRIGUEZ PANEL+MG SERUM OR Report Releas ed Date/Time: Aug 14, 2021 11:15 AM PLASMA Reporting Lab: [facility] [address] [place] [facility] [address] Performing Lab: [facility] [address] [place] [facility] [address] COMPREHEN CHLORIDE 104 98 - 107 02/15 Specimen Typ e: PLASMA [place] S[place] [MOLES/VOLU /2021 No comment e ntered. IS [facility] METABOLIC ME] IN Ordering Prov ider: MONICA RODRIGUEZ PANEL+MG SERUM OR Report Releas ed Date/Time: Aug 14, 2021 11:15 AM PLASMA Reporting Lab: [facility] [address] [place] [facility] [address] Performing Lab: [facility] [address] [place] [facility] [address] COMPREHEN CARBON 26 22 - 29 02/15 Specimen Type: PLASMA [place] DIOXIDE, /2021 No comment ente red. IS [facility] METABOLIC TOTAL Ordering Prov ider: MONICA RODRIGUEZ PANEL+MG [MOLES/VOLU Report Rel eased Date/Time: Aug 14, 2021 11:15 AM ME] IN Reporting Lab: [facility] SERUM OR [address] [place] [facility] [address] PLASMA Performing Lab: [facility] [address] [place] [address] COMPREHEN CALCIUM 9.6 8.4 - 10.2 02/15 Specimen Ty pe: PLASMA [place] [MASS/VOLUM /2021 No comment e ntered. IS [facility] METABOLIC E] IN SERUM Ordering Provider: MONICA RODRIGUEZ PANEL+MG OR PLASMA Report Relea sed Date/Time: Aug 14, 2021 11:15 AM Reporting Lab: [facility] [address] [place] [facility] [address] Performing Lab: [facility] [address] [place] [facility] [address] COMPREHEN PROTEIN 7.5 6.0 - 8.3 02/15 Specimen Typ e: PLASMA [place] [MASS/VOLUM /2021 No comment e ntered. IS [facility] METABOLIC E] IN SERUM Ordering Provider: MONICA RODRIGUEZ PANEL+MG OR PLASMA Report Relea sed Date/Time: Aug 14, 2021 11:15 AM Reporting Lab: [facility] [address] [place] [facility] [address] Performing Lab: [facility] [address] [place] [place] [address] COMPREHEN ALBUMIN 4.0 3.5 - 5.2 02/15 Specimen Typ e: PLASMA [place] [MASS/VOLUM /2021 No comment e ntered. IS [facility] METABOLIC E] IN SERUM Ordering Provider: MONICA RODRIGUEZ PANEL+MG OR PLASMA Report Relea sed Date/Time: Aug 14, 2021 11:15 AM Reporting Lab: [facility] [address] [place] [address] Performing Lab: [facility] [address] [place] [facility] [address] COMPREHEN BILIRUBIN.T 0.8 0.2 - 1.2 02/15 Specimen Type: PLASMA [place] OTAL /2021 No comment enter ed. IS [facility] METABOLIC [MASS/VOLUM Ordering Provider: MONICA RODRIGUEZ PANEL+MG E] IN SERUM Report Rel eased Date/Time: Aug 14, 2021 11:15 AM OR PLASMA Reporting Lab : [facility] [address] [place] [address] Performing Lab: [facility] [address] [place] [address] COMPREHEN MAGNESIUM 2.0 1.6 - 2.6 02/15 Specimen T ype: PLASMA [place] [MASS/VOLUM /2021 No comment e ntered. IS [facility] METABOLIC E] IN SERUM Ordering Provider: MONICA RODRIGUEZ PANEL+MG OR PLASMA Report Relea sed Date/Time: Aug 14, 2021 11:15 AM Reporting Lab: [facility] [address] [place] [facility] [address] Performing Lab: [facility] [address] [place] [facility] [address] COMPREHEN ANION GAP 8 5 - 15 02/15 Specimen Typ e: PLASMA [place] IN SERUM OR /2021 No comment e ntered. IS [facility] METABOLIC PLASMA Ordering Prov ider: MONICA RODRIGUEZ PANEL+MG Report Release d Date/Time: Aug 14, 2021 11:15 AM Reporting Lab: [facility] [address] [place] [facility] [address] Performing Lab: [facility] [address] [place] [address] COMPREHEN ALKALINE 62 40 - 150 02/15 Specimen Typ e: PLASMA [place] PHOSPHATASE /2021 No comment e ntered. IS [facility] METABOLIC [ENZYMATIC Ordering P rovider: MONICA RODRIGUEZ PANEL+MG ACTIVITY/VO Report Rel eased Date/Time: Aug 14, 2021 11:15 AM LUME] IN Reporting Lab: [facility] SERUM OR [address] [place] [facility] [address] PLASMA Performing Lab: [facility] [address] [place] [facility] [address] COMPREHEN ALANINE 13 <55 - 55 02/15 Specimen Type : PLASMA [place] AMINOTRANSF /2021 No comment e ntered. IS [facility] METABOLIC ERASE Ordering Prov ider: MONICA RODRIGUEZ PANEL+MG [ENZYMATIC Report Rele ased Date/Time: Aug 14, 2021 11:15 AM ACTIVITY/VO Reporting L ab: [facility] LUME] IN [address] [facility] [address] SERUM OR Performing Lab : [facility] PLASMA [address] [place] [facility] [address] COMPREHEN ASPARTATE 19 <34 - 34 02/15 Specimen Ty pe: PLASMA [place] AMINOTRANSF /2021 No comment e ntered. IS [facility] METABOLIC ERASE Ordering Prov ider: MONICA RODRIGUEZ PANEL+MG [ENZYMATIC Report Rele ased Date/Time: Aug 14, 2021 11:15 AM ACTIVITY/VO Reporting L ab: [facility] LUME] IN [address] [place] [facility] [address] SERUM OR Performing Lab : [facility] PLASMA [address] [place] [facility] [address] COMPREHEN GLOMERULAR 70 60 02/15 Specimen Ty pe: PLASMA [place] FILTRATION /2021 No comment en tered. IS [facility] METABOLIC RATE/1.73 Ordering Pr ovider: MONICA RODRIGUEZ PANEL+MG SQ Report Release d Date/Time: Aug 14, 2021 11:15 AM M.PREDICTED Reporting L ab: [facility] [VOLUME [address] [place] [facility] [address] RATE/AREA] Performing L ab: [facility] IN SERUM, [address] [facility] [address] PLASMA OR BLOOD BY CREATININE- BASED FORMULA (CKD-EPI) CBC & LEUKOCYTES 4.33 4.0 - 11.0 02/15 Specimen T ype: BLOOD [place] DIFF [#/VOLUME] /2021 Comment: Aut omated Differential Performed IS [facility] IN BLOOD BY Ordering Pr ovider: MONICA RODRIGUEZ AUTOMATED Report Releas ed Date/Time: Aug 14, 2021 11:15 AM COUNT Reporting Lab: [facility] [address] [place] [facility] [address] Performing Lab: [facility] [address] [place] [facility] [address] CBC & ERYTHROCYTE 3.93 4.6 - 6.2 02/15 L Specimen T ype: BLOOD [place] DIFF S /2021 Comment: Automa armand Differential Performed IS [facility] [#/VOLUME] Ordering Pro vider: MONICA RODRIGUEZ IN BLOOD BY Report Rele ased Date/Time: Aug 14, 2021 11:15 AM AUTOMATED Reporting Lab : [facility] COUNT [address] [place] [facility] [address] Performing Lab: [facility] [address] [place] [address] CBC & HEMOGLOBIN 13.2 13.5 - 02/15 L Specimen Type : BLOOD [place] DIFF [MASS/VOLUM 17.9 /2021 Comment: Au tomated Differential Performed IS [facility] E] IN BLOOD Ordering Pr ovider: MONICA RODRIGUEZ Report Released Date/Time: Aug 14, 2021 11:15 AM Reporting Lab: [facility] [address] [place] [facility] [address] Performing Lab: [facility] [address] [place] [facility] [address] CBC & HEMATOCRIT 39.1 41 - 54 02/15 L Specimen Type : BLOOD [place] DIFF [VOLUME /2021 Comment: Automa armand Differential Performed IS [facility] FRACTION] Ordering Prov ider: MONICA RODRIGUEZ OF BLOOD BY Report Rele ased Date/Time: Aug 14, 2021 11:15 AM AUTOMATED Reporting Lab : [facility] COUNT [address] [place] [facility] [address] Performing Lab: [facility] [address] [place] [facility] [address] CBC & MCV 99.5 80 - 100 02/15 Specimen Type: BLOOD [place] DIFF [ENTITIC /2021 Comment: Autom ated Differential Performed IS [facility] VOLUME] BY Ordering Pro vider: MONICA RODRIGUEZ AUTOMATED Report Releas ed Date/Time: Aug 14, 2021 11:15 AM COUNT Reporting Lab: [facility] [address] [place] [facility] [address] Performing Lab: [facility] [address] [place] [facility] [address] CBC & MCH 33.6 27 - 33 02/15 H Specimen Type: B LOOD [place] DIFF [ENTITIC /2021 Comment: Autom ated Differential Performed IS [facility] MASS] BY Ordering Provi tracy: MONICA RODRIGUEZ AUTOMATED Report Releas ed Date/Time: Aug 14, 2021 11:15 AM COUNT Reporting Lab: [facility] [address] [place] [facility] [address] Performing Lab: [facility] [address] [place] [facility] [address] CBC & MCHC 33.8 32.0 - 02/15 Specimen Type: B LOOD [place] DIFF [MASS/VOLUM 37.5 /2021 Comment: Au tomated Differential Performed IS [facility] E] BY Ordering Provid er: MONICA RODRIGUEZ AUTOMATED Report Releas ed Date/Time: Aug 14, 2021 11:15 AM COUNT Reporting Lab: [facility] [address] [place] [address] Performing Lab: [facility] [address] [place] [address] CBC & PLATELETS 270 150 - 400 02/15 Specimen Typ e: BLOOD [place] DIFF [#/VOLUME] /2021 Comment: Aut omated Differential Performed IS [facility] IN BLOOD BY Ordering Pr ovider: MONICA RODRIGUEZ AUTOMATED Report Releas ed Date/Time: Aug 14, 2021 11:15 AM COUNT Reporting Lab: [facility] [address] [place] [facility] [address] Performing Lab: [facility] [address] [place] [address] CBC & PLATELET 10.0 7.4 - 10.4 02/15 Specimen Typ e: BLOOD [place] DIFF MEAN VOLUME /2021 Comment: Au tomated Differential Performed IS [facility] [ENTITIC Ordering Provi tracy: MONICA RODRIGUEZ VOLUME] IN Report Relea sed Date/Time: Aug 14, 2021 11:15 AM BLOOD BY Reporting Lab: [facility] AUTOMATED [address] [facility] [address] COUNT Performing Lab: [facility] [address] [place] [facility] [address] CBC & NEUTROPHILS 65.0 02/15 Specimen Typ e: BLOOD [place] DIFF /100 /2021 Comment: Automa armand Differential Performed IS [facility] LEUKOCYTES Ordering Pro vider: MONICA RODRIGUEZ IN BLOOD BY Report Rele ased Date/Time: Aug 14, 2021 11:15 AM MANUAL Reporting Lab: [facility] COUNT [address] [place] [facility] [address] Performing Lab: [facility] [address] [place] [facility] [address] CBC & LYMPHOCYTES 22.6 02/15 Specimen Typ e: BLOOD [place] DIFF /100 /2021 Comment: Automa armand Differential Performed IS [facility] LEUKOCYTES Ordering Pro vider: MONICA RODRIGUEZ IN BLOOD BY Report Rele ased Date/Time: Aug 14, 2021 11:15 AM MANUAL Reporting Lab: [facility] COUNT [address] [place] [facility] [address] Performing Lab: [facility] [address] [place] [facility] [address] CBC & MONOCYTES/1 9.9 02/15 Specimen Typ e: BLOOD [place] DIFF 00 Comment: Automa armand Differential Performed IS [facility] LEUKOCYTES Ordering Pro vider: MONICA RODRIGUEZ IN BLOOD BY Report Rele ased Date/Time: Aug 14, 2021 11:15 AM AUTOMATED Reporting Lab : [facility] COUNT [address] [place] [facility] [address] Performing Lab: [facility] [address] [place] [facility] [address] CBC & EOSINOPHILS 1.8 02/15 Specimen Typ e: BLOOD [place] DIFF /100 /2021 Comment: Automa armand Differential Performed IS [facility] LEUKOCYTES Ordering Pro vider: MONICA RODRIGUEZ IN BLOOD BY Report Rele ased Date/Time: Aug 14, 2021 11:15 AM AUTOMATED Reporting Lab : [facility] COUNT [address] [place] [facility] [address] Performing Lab: [facility] [address] [place] [facility] [address] CBC & BASOPHILS/1 0.2 02/15 Specimen Typ e: BLOOD [place] DIFF 00 Comment: Automa armand Differential Performed IS [facility] LEUKOCYTES Ordering Pro vider: MONICA RODRIGUEZ IN BLOOD BY Report Rel eased Date/Time: Aug 14, 2021 11:15 AM MANUAL Reporting Lab: [facility] COUNT [address] [place] [facility] [address] Performing Lab: [facility] [address] [place] [facility] [address] CBC & ERYTHROCYTE 13.1 11.5 - 02/15 Specimen Typ e: BLOOD [place] DIFF DISTRIBUTIO 14.5 Comment: Au tomated Differential Performed IS [facility] N WIDTH Ordering Provid er: MONICA RODRIGUEZ [RATIO] BY Report Relea sed Date/Time: Aug 14, 2021 11:15 AM AUTOMATED Reporting Lab : [facility] COUNT [address] [place] [facility] [address] Performing Lab: [facility] [address] [place] [facility] [address] CBC & LYMPHOCYTES 0.98 1.0 - 4.0 02/15 L Specimen T ype: BLOOD [place] DIFF [#/VOLUME] /2021 Comment: Aut omated Differential Performed IS [facility] IN BLOOD BY Ordering Pr ovider: MONICA RODRIGUEZ AUTOMATED Report Releas ed Date/Time: Aug 14, 2021 11:15 AM COUNT Reporting Lab: [facility] [address] [place] [facility] [address] Performing Lab: [facility] [address] [place] [facility] [address] CBC & MONOCYTES 0.43 0.1 - 1.0 02/15 Specimen Typ e: BLOOD [place] DIFF [#/VOLUME] /2021 Comment: Aut omated Differential Performed IS [facility] IN BLOOD BY Ordering Pr ovider: MONICA RODRIGUEZ AUTOMATED Report Releas ed Date/Time: Aug 14, 2021 11:15 AM COUNT Reporting Lab: [facility] [address] [place] [facility] [address] Performing Lab: [facility] [address] [place] [facility] [address] CBC & NEUTROPHILS 2.81 2.0 - 7.7 02/15 Specimen T ype: BLOOD [place] DIFF [#/VOLUME] /2021 Comment: Aut omated Differential Performed IS [facility] IN BLOOD BY Ordering Pr ovider: MONICA RODRIGUEZ AUTOMATED Report Releas ed Date/Time: Aug 14, 2021 11:15 AM COUNT Reporting Lab: [facility] [address] [place] [facility] [address] Performing Lab: [facility] [address] [place] [facility] [address] CBC & EOSINOPHILS 0.08 0 - 0.5 02/15 Specimen Typ e: BLOOD [place] DIFF [#/VOLUME] /2021 Comment: Aut omated Differential Performed IS [facility] IN BLOOD BY Ordering Pr ovider: MONICA RODRIGUEZ AUTOMATED Report Releas ed Date/Time: Aug 14, 2021 11:15 AM COUNT Reporting Lab: [facility] [address] [place] [facility] [address] Performing Lab: [facility] [address] [place] [facility] [address] CBC & BASOPHILS 0.01 0 - 0.2 02/15 Specimen Type: BLOOD [place] DIFF [#/VOLUME] /2021 Comment: Aut omated Differential Performed IS [facility] IN BLOOD BY Ordering Pr ovider: MONICA RODRIGUEZ AUTOMATED Report Releas ed Date/Time: Aug 14, 2021 11:15 AM COUNT Reporting Lab: [facility] [address] [place] [facility] [address] Performing Lab: [facility] [address] [place] [facility] [address] CBC & IG(META,MYE 0.5 02/15 Specimen Typ e: BLOOD [place] DIFF LO,PRO) /2021 Comment: Automa armand Differential Performed IS [facility] Ordering Provid er: MONICA RODRIGUEZ Report Released Date/Time: Aug 14, 2021 11:15 AM Reporting Lab: [facility] [address] [place] [facility] [address] Performing Lab: [facility] [address] [place] [facility] [address] CBC & IMMATURE 0.02 0 - 0.1 02/15 Specimen Type: BLOOD [place] DIFF GRANULOCYTE /2021 Comment: Au tomated Differential Performed IS [facility] S Ordering Provid er: MONICA RODRIGUEZ [PRESENCE] Report Relea sed Date/Time: Aug 14, 2021 11:15 AM IN BLOOD BY Reporting L ab: [facility] AUTOMATED [facility] [address] COUNT Performing Lab: [facility] [address] [facility] [address] IRON IRON 101 65 - 175 07/26 Specimen Type: PLASMA DEUARDO GROUP [MASS/VOLUM /2020 No comment e ntered. (CBOC) E] IN SERUM Ordering Pr ovider: EVANS SMALL OR PLASMA Report Releas ed Date/Time: Jul 26, 2021 10:58 AM Reporting Lab: [facility] [address] [place] [facility] [address] Performing Lab: [facility] [address] [place] [facility] [address] IRON IRON 200 250 - 425 07/26 L Specimen Type: PLASMA EDUARDO GROUP BINDING /2020 No comment enter ed. (CBOC) CAPACITY Ordering Provi tracy: EVANS SMALL [MASS/VOLUM Report Rele ased Date/Time: Jul 26, 2021 10:58 AM E] IN SERUM Reporting L ab: [facility] OR PLASMA [facility] [address] Performing Lab: [facility] [address] [place] [facility] [address] IRON FERRITIN 56.1 21.8 - 07/26 Specimen Type: PLASMA EDUARDO GROUP [MASS/VOLUM 274.7 No comment e ntered. (CBOC) E] IN SERUM Ordering Pr ovider: EVANS SMALL OR PLASMA Report Releas ed Date/Time: Jul 26, 2021 10:58 AM Reporting Lab: [facility] [address] [place] [facility] [address] Performing Lab: [facility] [address] [place] [address] IRON IRON 51 20 - 50 12/30 H Specimen Type: P DEBORAHMA EDUARDO GROUP SATURATION /2020 No comment en tered. (CBOC) Ordering Provid er: EVANS SMALL Report Released Date/Time: Jul 26, 2021 10:58 AM Reporting Lab: [facility] [address] [place] [place] [address] Performing Lab: [facility] [address] [place] [address] IRON TRANSFERRIN 160 163 - 382 12/30 L Specimen T ype: PLASMA EDUARDO GROUP [MASS/VOLUM /2020 No comment e ntered. (CBOC) E] IN SERUM Ordering Pr ovider: EVANS SMALL OR PLASMA Report Releas ed Date/Time: Jul 26, 2021 10:58 AM Reporting Lab: [facility] ONE [facility] [address] [address] [place] [place] [address] Performing Lab: [facility] [address] [place] [address] BASIC CREATININE 1.1 0.7 - 1.2 12 Specimen Ty pe: PLASMA EDUARDO METABOLIC [MASS/VOLUM /2020 No comment entered. (CBOC) PANEL+MG E] IN SERUM Ordering P rovider: EVANS SMALL OR PLASMA Report Releas ed Date/Time: Jul 26, 2021 10:58 AM Reporting Lab: [facility] [address] [place] [place] [address] Performing Lab: [facility] [address] [place] [address] BASIC UREA 15 8 - 26 12 Specimen Type: P MONA EDUARDO METABOLIC /2020 No comment en tered. (CBOC) PANEL+MG [MASS/VOLUM Ordering P rovider: EVANS SMALL E] IN SERUM Report Rele ased Date/Time: Jul 26, 2021 10:58 AM OR PLASMA Reporting Lab : [facility] ONE [facility] [address] [place] [facility] [address] Performing Lab: [facility] [address] [place] [address] BASIC GLUCOSE 91 74 - 100 12 Specimen Type: PLASMA EDUARDO METABOLIC [MASS/VOLUM /2020 No comment entered. (CBOC) PANEL+MG E] IN SERUM Ordering P rovider: EVANS SMALL OR PLASMA Report Releas ed Date/Time: Jul 26, 2021 10:58 AM Reporting Lab: [facility] [address] [place] [address] Performing Lab: [facility] [address] [place] [address] BASIC SODIUM 138 136 - 145 07/26 Specimen Type: PLASMA EDUARDO METABOLIC [MOLES/VOLU /2020 No comment entered. (CBOC) PANEL+MG ME] IN Ordering Provi tracy: EVANS SMALL SERUM OR Report Release d Date/Time: Jul 26, 2021 10:58 AM PLASMA Reporting Lab: [facility] [address] [place] [address] Performing Lab: [facility] [address] [place] [address] BASIC POTASSIUM 4.2 3.5 - 5.1 07/26 Specimen Typ e: PLASMA EDUARDO METABOLIC [MOLES/VOLU /2020 No comment entered. (CBOC) PANEL+MG ME] IN Ordering Provi tracy: EVANS SMALL SERUM OR Report Release d Date/Time: Jul 26, 2021 10:58 AM PLASMA Reporting Lab: [facility] [address] [place] [place] [address] Performing Lab: [facility] [address] [place] [address] BASIC CHLORIDE 101 98 - 107 07/26 Specimen Type: PLASMA EDUARDO METABOLIC [MOLES/VOLU /2020 No comment entered. (CBOC) PANEL+MG ME] IN Ordering Provi tracy: EVANS SMALL SERUM OR Report Release d Date/Time: Jul 26, 2021 10:58 AM PLASMA Reporting Lab: [facility] [address] [place] [address] Performing Lab: [facility] [address] [place] [address] BASIC CARBON 28 22 - 29 07/26 Specimen Type: P [place]A [place] METABOLIC DIOXIDE, /2020 No comment en tered. (CBOC) PANEL+MG TOTAL Ordering Provi tracy: EVANS SMALL [MOLES/VOLU Report Rele ased Date/Time: Jul 26, 2021 10:58 AM ME] IN Reporting Lab: [facility] SERUM [place] [address] [place] [address] PLASMA Performing Lab: [facility] [address] [place] [address] BASIC CALCIUM 9.7 8.4 - 10.2 07/26 Specimen Type : PLASMA EDUARDO METABOLIC [MASS/VOLUM /2020 No comment entered. (CBOC) PANEL+MG E] IN SERUM Ordering P rovider: EVANS SMALL OR PLASMA Report Releas ed Date/Time: Jul 26, 2021 10:58 AM Reporting Lab: [facility] [address] [place] [address] Performing Lab: [facility] [address] [place] [address] BASIC MAGNESIUM 2.0 1.6 - 2.6 07/26 Specimen Typ e: PLASMA EDUARDO METABOLIC [MASS/VOLUM /2020 No comment entered. (CBOC) PANEL+MG E] IN SERUM Ordering P rovider: EVANS SMALL OR PLASMA Report Releas ed Date/Time: Jul 26, 2021 10:58 AM Reporting Lab: [facility] [address] [place] [address] Performing Lab: [facility] [address] [place] [address] BASIC ANION GAP 9 5 - 15 07/26 Specimen Type: PLASMA EDUARDO METABOLIC IN SERUM OR /2020 No comment entered. (CBOC) PANEL+MG PLASMA Ordering Provi tracy: EVANS SMALL Report Released Date/Time: Jul 26, 2021 10:58 AM Reporting Lab: [facility] [address] [place] [address] Performing Lab: [facility] [address] [place] [address] BASIC GLOMERULAR 65 60 07/26 Specimen Type : PLASMA EDUARDO METABOLIC FILTRATION /2020 No comment entered. (CBOC) PANEL+MG RATE/1.73 Ordering Pro vider: EVANS SMALL SQ Report Released Date/Time: Jul 26, 2021 10:58 AM M.PREDICTED Reporting L ab: [facility] [VOLUME [address] [place] [address] RATE/AREA] Performing L ab: [facility] IN SERUM, [address] [facility] [address] PLASMA OR BLOOD BY CREATININE- BASED FORMULA (CKD-EPI) LIPID CHOLESTEROL 140 <199 - 199 07/26 Specimen Type: PLASMA EDUARDO PANEL,NON [MASS/VOLUM /2020 No comment entered. (CBOC) -FASTING E] IN SERUM Ordering P rovider: EVANS SMALL OR PLASMA Report Releas ed Date/Time: Jul 26, 2021 10:58 AM Reporting Lab: [facility] [address] [place] [address] Performing Lab: [facility] [address] [place] [address] LIPID CHOLESTEROL 44 40 07/26 Specimen Typ e: PLASMA EDUARDO PANEL,NON IN HDL /2020 No comment ent ered. (CBOC) -FASTING [MASS/VOLUM Ordering P rovider: EVANS SMALL] IN SERUM Report Rele ased Date/Time: Jul 26, 2021 10:58 AM OR PLASMA Reporting Lab : [facility] [address] [place] [address] Performing Lab: [facility] ONE [facility] [place] [address] [place] [address] LIPID CHOLESTEROL 78 <99 - 99 07/26 Specimen Ty pe: PLASMA EDUARDO PANEL,NON IN LDL /2020 No comment ent ered. (CBOC) -FASTING [MASS/VOLUM Ordering P rovider: EVANS SMALL] IN SERUM Report Rele ased Date/Time: Jul 26, 2021 10:58 AM OR PLASMA Reporting Lab : [facility] BY ONE [facility] [address] [address] [place] [place] [address] CALCULATION Performing Lab: [facility] ONE [facility] [address] [address] [place] [place] [address] LIPID CHOLESTEROL 18 <29 - 29 07/26 Specimen Ty pe: PLASMA EDUARDO PANEL,NON IN VLDL /2020 No comment ent ered. (CBOC) -FASTING [MASS/VOLUM Ordering P rovider: EVANS SMALL] IN SERUM Report Rele ased Date/Time: Jul 26, 2021 10:58 AM OR PLASMA Reporting Lab : [facility] BY ONE [facility] [address] [address] [place] [place] [address] CALCULATION Performing Lab: [facility] ONE [facility] [place] [address] [place] [place] [address] LIPID CHOLESTEROL 96 <129 - 129 07/26 Specimen Type: PLASMA EDUARDO PANEL,NON NON HDL /2020 No comment ent ered. (CBOC) -FASTING [MASS/VOLUM Ordering P rovider: EVANS SMALL] IN SERUM Report Rele ased Date/Time: Jul 26, 2021 10:58 AM OR PLASMA Reporting Lab : [facility] [address] [place] [place] [address] Performing Lab: [facility] ONE [facility] [address] [facility] [address] LIPID TRIGLYCERID 92 <149 - 149 07/26 Specimen Type: PLASMA EDUARDO PANEL,NON E No comment ent ered. (CBOC) -FASTING [MASS/VOLUM Ordering P rovider: EVANS SMALL E] IN SERUM Report Rele ased Date/Time: Jul 26, 2021 10:58 AM OR PLASMA Reporting Lab : [facility] [address] [place] [place] [address] Performing Lab: [facility] [address] [place] [address] CBC LEUKOCYTES 4.47 4.0 - 11.0 07/26 Specimen T ype: BLOOD EDUARDO [#/VOLUME] /2020 No comment en tered. (CBOC) IN BLOOD BY Ordering Pr ovider: EVANS SMALL AUTOMATED Report Releas ed Date/Time: Jul 26, 2021 10:58 AM COUNT Reporting Lab: [facility] [address] [place] [facility] [address] Performing Lab: [facility] [address] [place] [place] [address] CBC ERYTHROCYTE 4.35 4.6 - 6.2 12/ L Specimen T ype: BLOOD EDAURDO S /2020 No comment enter ed. (CBOC) [#/VOLUME] Ordering Pro vider: EVANS SMALL IN BLOOD BY Report Rele ased Date/Time: Jul 26, 2021 10:58 AM AUTOMATED Reporting Lab : [facility] COUNT [address] [place] [facility] [address] Performing Lab: [facility] [address] [place] [facility] [address] CBC HEMOGLOBIN 15.1 13.5 - 07/26 Specimen Type : BLOOD EDUARDO [MASS/VOLUM 17.9 /2020 No comment e ntered. (CBOC) E] IN BLOOD Ordering Pr ovider: EVANS SMALL Report Released Date/Time: Jul 26, 2021 10:58 AM Reporting Lab: [facility] [address] [place] [facility] [address] Performing Lab: [facility] [address] [place] [facility] [address] CBC HEMATOCRIT 45.1 41 - 54 07/26 Specimen Type : BLOOD EDUARDO [VOLUME /2020 No comment enter ed. (CBOC) FRACTION] Ordering Prov ider: EVANS SMALL OF BLOOD BY Report Rele ased Date/Time: Jul 26, 2021 10:58 AM AUTOMATED Reporting Lab : [facility] COUNT [address] [place] [facility] [address] Performing Lab: [facility] [address] [place] [facility] [address] CBC MCV 103.7 80 - 100 12/30 H Specimen Type: BLOOD EDUARDO [ENTITIC /2020 No comment ente red. (CBOC) VOLUME] BY Ordering Pro vider: EVANS SMALL AUTOMATED Report Releas ed Date/Time: Jul 26, 2021 10:58 AM COUNT Reporting Lab: [facility] [address] [place] [facility] [address] Performing Lab: [facility] [address] [place] [facility] [address] CBC MCH 34.7 27 - 33 12/30 H Specimen Type: B LOOD EDUARDO [ENTITIC /2020 No comment ente red. (CBOC) MASS] BY Ordering Provi tracy: EVANS SMALL AUTOMATED Report Releas ed Date/Time: Jul 26, 2021 10:58 AM COUNT Reporting Lab: [facility] [address] [place] [facility] [address] Performing Lab: [facility] [address] [place] [facility] [address] CBC MCHC 33.5 32.0 - 12 Specimen Type: B LOOD EDUARDO [MASS/VOLUM 37.5 /2020 No comment e ntered. (CBOC) E] BY Ordering Provid er: EVANS SMALL AUTOMATED Report Releas ed Date/Time: Jul 26, 2021 10:58 AM COUNT Reporting Lab: [facility] [address] [place] [place] [address] Performing Lab: [facility] [place] [address] CBC PLATELETS 254 150 - 400 07/26 Specimen Typ e: BLOOD EDUARDO [#/VOLUME] /2020 No comment en tered. (CBOC) IN BLOOD BY Ordering Pr ovider: EVANS SMALL AUTOMATED Report Releas ed Date/Time: Jul 26, 2021 10:58 AM COUNT Reporting Lab: [facility] [address] [place] [facility] [address] Performing Lab: [facility] [address] [place] [facility] [address] CBC PLATELET 10.0 7.4 - 10.4 07/26 Specimen Typ e: BLOOD EDUARDO MEAN VOLUME /2020 No comment e ntered. (CBOC) [ENTITIC Ordering Provi tracy: EVANS SMALL VOLUME] IN Report Relea sed Date/Time: Jul 26, 2021 10:58 AM BLOOD BY Reporting Lab: [facility] AUTOMATED [address] [facility] [address] COUNT Performing Lab: [facility] [address] [place] [place] [address] CBC ERYTHROCYTE 13.2 11.5 - 07/26 Specimen Typ e: BLOOD EDUARDO DISTRIBUTIO 14. No comment e ntered. (CBOC) N WIDTH Ordering Provid er: EVANS SMALL [RATIO] BY Report Relea sed Date/Time: Jul 26, 2021 10:58 AM AUTOMATED Reporting Lab : [facility] COUNT [address] [place] [address] Performing Lab: [facility] [address] [place] [facility] [address] PSA PROSTATE 0.36 <4.00 - 07/26 Specimen Type: SERUM [place] SPECIFIC AG 4.00 No comment e ntered. IS PR HCS [MASS/VOLUM Ordering Pr ovider: IRENE UMANZOR] IN SERUM Report Rele ased Date/Time: Feb 28, 2021 05:23 PM OR PLASMA Reporting Lab : [facility] [address] [place] [facility] [address] Performing Lab: [facility] [address] [place] [facility] [address] IRON IRON 101 65 - 175 07/26 Specimen Type: SERUM [place] GROUP [MASS/VOLUM /2020 No comment e ntered. IS [facility] E] IN SERUM Ordering Pr ovider: MONICA RODRIGUEZ OR PLASMA Report Releas ed Date/Time: Jan 10, 2021 11:21 AM Reporting Lab: [facility] [address] [place] [facility] [address] Performing Lab: [facility] [address] [place] [facility] [address] IRON IRON 195 250 - 425 07/26 L Specimen Type: SERUM [place] GROUP BINDING /2020 No comment enter ed. IS [facility] CAPACITY Ordering Provi tracy: MONICA RODRIGUEZ [MASS/VOLUM Report Rele ased Date/Time: Jan 10, 2021 11:21 AM E] IN SERUM Reporting L ab: [facility] HCS OR PLASMA [address] [facility] [address] Performing Lab: [facility] [address] [place] [facility] [address] IRON FERRITIN 47.4 21.8 - 07/26 Specimen Type: SERUM [place] GROUP [MASS/VOLUM 274.7 No comment e ntered. IS [facility] E] IN SERUM Ordering Pr ovider: MONICA RODRIGUEZ OR PLASMA Report Releas ed Date/Time: Jan 10, 2021 11:21 AM Reporting Lab: [facility] [address] [place] [address] Performing Lab: [facility] [address] [place] [address] IRON IRON 52 20 - 50 12/30 H Specimen Type: S SHAKIRA [place] GROUP SATURATION /2020 No comment en tered. IS [facility] Ordering Provid er: MONICA RODRIGUEZ Report Released Date/Time: Jan 10, 2021 11:21 AM Reporting Lab: [facility] [address] [place] [facility] [address] Performing Lab: [facility] [address] [place] [facility] [address] IRON TRANSFERRIN 156 163 - 382 12/30 L Specimen T ype: SERUM [place] GROUP [MASS/VOLUM /2020 No comment e ntered. IS [facility] E] IN SERUM Ordering Pr ovider: MONICA RODRIGUEZ OR PLASMA Report Releas ed Date/Time: Jan 10, 2021 11:21 AM Reporting Lab: [facility] [address] [place] [address] Performing Lab: [facility] [address] [place] [address] BASIC CREATININE 1.1 0.7 - 1.2 07/26 Specimen Ty pe: PLASMA [place] METABOLIC [MASS/VOLUM /2020 No comment entered. IS [facility] PANEL+MG E] IN SERUM Ordering P rovider: MONICA RODRIGUEZ OR PLASMA Report Releas ed Date/Time: Jan 10, 2021 11:21 AM Reporting Lab: [facility] [address] [place] [facility] [address] Performing Lab: [facility] [address] [place] [facility] [address] BASIC UREA 14 8 - 26 07/26 Specimen Type: P LASMA [place] METABOLIC NITROGEN /2020 No comment en tered. IS [facility] PANEL+MG [MASS/VOLUM Ordering P rovider: MONICA RODRIGUEZ E] IN SERUM Report Rele ased Date/Time: Jan 10, 2021 11:21 AM OR PLASMA Reporting Lab : [facility] [address] [place] [address] Performing Lab: [facility] [address] [place] [facility] [address] BASIC GLUCOSE 91 74 - 100 07/26 Specimen Type: PLASMA [place] METABOLIC [MASS/VOLUM /2020 No comment entered. IS [facility] PANEL+MG E] IN SERUM Ordering P rovider: MONICA RODRIGUEZ OR PLASMA Report Releas ed Date/Time: Jan 10, 2021 11:21 AM Reporting Lab: [facility] [address] [place] [address] Performing Lab: [facility] [address] [place] [facility] [address] BASIC SODIUM 139 136 - 145 07/26 Specimen Type: PLASMA [place] METABOLIC [MOLES/VOLU No comment entered. IS [facility] PANEL+MG ME] IN Ordering Provi tracy: MONICA RODRIGUEZ SERUM OR Report Release d Date/Time: Jan 10, 2021 11:21 AM PLASMA Reporting Lab: [facility] [address] [place] [facility] [address] Performing Lab: [facility] [address] [facility] [address] BASIC POTASSIUM 4.2 3.5 - 5.1 07/26 Specimen Typ e: PLASMA [place] METABOLIC [MOLES/VOLU No comment entered. IS [facility] PANEL+MG ME] IN Ordering Provi tracy: MONICA RODRIGUEZ SERUM OR Report Release d Date/Time: Jan 10, 2021 11:21 AM PLASMA Reporting Lab: [facility] [address] [place] [facility] [address] Performing Lab: [facility] [address] [facility] [address] BASIC CHLORIDE 103 98 - 107 07/26 Specimen Type: PLASMA [place] METABOLIC [MOLES/VOLU /2020 No comment entered. IS [facility] PANEL+MG ME] IN Ordering Provi tracy: MONICA RODRIGUEZ SERUM OR Report Release d Date/Time: Jan 10, 2021 11:21 AM PLASMA Reporting Lab: [facility] [address] [place] [facility] [address] Performing Lab: [facility] [address] [place] [facility] [address] BASIC CARBON 28 22 - 29 07/26 Specimen Type: P LASMA [place] METABOLIC DIOXIDE, /2020 No comment en tered. IS [facility] PANEL+MG TOTAL Ordering Provi tracy: MONICA RODRIGUEZ [MOLES/VOLU Report Rele ased Date/Time: Jan 10, 2021 11:21 AM ME] IN Reporting Lab: [facility] SERUM OR [address] [place] [facility] [address] PLASMA Performing Lab: [facility] [address] [place] [address] BASIC CALCIUM 9.6 8.4 - 10.2 07/26 Specimen Type : PLASMA [place] METABOLIC [MASS/VOLUM /2020 No comment entered. IS [facility] PANEL+MG E] IN SERUM Ordering P rovider: MONICA RODRIGUEZ OR PLASMA Report Rele ed Date/Time: Jan 10, 2021 11:21 AM Reporting Lab: [facility] [address] [place] [facility] [address] Performing Lab: [facility] [address] [place] [address] BASIC MAGNESIUM 2.1 1.6 - 2.6 07/26 Specimen Typ e: PLASMA [place] METABOLIC [MASS/VOLUM /2020 No comment entered. IS [facility] PANEL+MG E] IN SERUM Ordering P rovider: MONICA RODRIGUEZ OR PLASMA Report Rele ed Date/Time: Jan 10, 2021 11:21 AM Reporting Lab: [facility] [address] [place] [facility] [address] Performing Lab: [facility] [address] [place] [address] BASIC ANION GAP 8 5 - 15 07/26 Specimen Type: PLASMA [place] METABOLIC IN SERUM OR /2020 No comment entered. IS [facility] PANEL+MG PLASMA Ordering Provi tracy: MONICA RODRIGUEZ Report Released Date/Time: Jan 10, 2021 11:21 AM Reporting Lab: [facility] [address] [place] [address] Performing Lab: [facility] [address] [place] [address] BASIC GLOMERULAR 65 60 07/26 Specimen Type : PLASMA [place] METABOLIC FILTRATION /2020 No comment entered. IS [facility] PANEL+MG RATE/1.73 Ordering Pro vider: MONICA RODRIGUEZ SQ Report Released Date/Time: Jan 10, 2021 11:21 AM M.PREDICTED Reporting L ab: [facility] [VOLUME [address] [place] [address] RATE/AREA] Performing L ab: [facility] IN SERUM, [address] [facility] [address] PLASMA OR BLOOD BY CREATININE- BASED FORMULA (CKD-EPI) CBC & LEUKOCYTES 4.41 4.0 - 11.0 12 Specimen T ype: BLOOD [place] DIFF [#/VOLUME] /2020 Comment: Aut omated Differential Performed IS [facility] IN BLOOD BY Ordering Pr ovider: MONICA RODRIGUEZ AUTOMATED Report Releas ed Date/Time: Jan 10, 2021 11:21 AM COUNT Reporting Lab: [facility] [address] [place] [address] Performing Lab: [facility] [address] [place] [facility] [address] CBC & ERYTHROCYTE 4.36 4.6 - 6.2 12/30 L Specimen T ype: BLOOD [place] DIFF S /2020 Comment: Automa armand Differential Performed IS [facility] [#/VOLUME] Ordering Pro vider: MONICA RODRIGUEZ IN BLOOD BY Report Rele ased Date/Time: Jan 10, 2021 11:21 AM AUTOMATED Reporting Lab : [facility] COUNT [address] [place] [facility] [address] Performing Lab: [facility] [address] [place] [facility] [address] CBC & HEMOGLOBIN 15.1 13.5 - 12 Specimen Type : BLOOD [place] DIFF [MASS/VOLUM 17.9 /2020 Comment: Au tomated Differential Performed IS [facility] E] IN BLOOD Ordering Pr ovider: MONICA RODRIGUEZ Report Released Date/Time: Jan 10, 2021 11:21 AM Reporting Lab: [facility] [address] [place] [facility] [address] Performing Lab: [facility] [address] [place] [facility] [address] CBC & HEMATOCRIT 45.0 41 - 54 07/26 Specimen Type : BLOOD [place] DIFF [VOLUME /2020 Comment: Automa armand Differential Performed IS [facility] FRACTION] Ordering Prov ider: MONICA RODRIGUEZ OF BLOOD BY Report Rele ased Date/Time: Jan 10, 2021 11:21 AM AUTOMATED Reporting Lab : [facility] [address] [place] [facility] [address] Performing Lab: [facility] [address] [place] [facility] [address] CBC & MCV 103.2 80 - 100 12/30 H Specimen Type: BLOOD [place] DIFF [ENTITIC /2020 Comment: Autom ated Differential Performed IS [facility] VOLUME] BY Ordering Pro vider: MONICA RODRIGUEZ AUTOMATED Report Releas ed Date/Time: Jan 10, 2021 11:21 AM COUNT Reporting Lab: [facility] [address] [place] [facility] [address] Performing Lab: [facility] [address] [place] [facility] [address] CBC & MCH 34.6 27 - 33 12/30 H Specimen Type: B LOOD [place] DIFF [ENTITIC /2020 Comment: Autom ated Differential Performed IS [facility] MASS] BY Ordering Provi tracy: MONICA RODRIGUEZ AUTOMATED Report Releas ed Date/Time: Jan 10, 2021 11:21 AM COUNT Reporting Lab: [facility] [address] [place] [facility] [address] Performing Lab: [facility] [address] [place] [facility] [address] CBC & MCHC 33.6 32.0 - 12 Specimen Type: B LOOD [place] DIFF [MASS/VOLUM 37.5 /2020 Comment: Au tomated Differential Performed IS [facility] E] BY Ordering Provid er: MONICA RODRIGUEZ AUTOMATED Report Releas ed Date/Time: Jan 10, 2021 11:21 AM COUNT Reporting Lab: [facility] [address] [place] [facility] [address] Performing Lab: [facility] [address] [place] [facility] [address] CBC & PLATELETS 244 150 - 400 07/26 Specimen Typ e: BLOOD [place] DIFF [#/VOLUME] /2020 Comment: Aut omated Differential Performed IS [facility] IN BLOOD BY Ordering Pr ovider: MONICA RODRIGUEZ AUTOMATED Report Releas ed Date/Time: Jan 10, 2021 11:21 AM COUNT Reporting Lab: [facility] [address] [place] [facility] [address] Performing Lab: [facility] [address] [place] [facility] [address] CBC & PLATELET 10.0 7.4 - 10.4 07/26 Specimen Typ e: BLOOD [place] DIFF MEAN VOLUME /2020 Comment: Au tomated Differential Performed IS [facility] [ENTITIC Ordering Provi tracy: MONICA RODRIGUEZ VOLUME] IN Report Relea sed Date/Time: Jan 10, 2021 11:21 AM BLOOD BY Reporting Lab: [facility] AUTOMATED [address] [facility] [address] COUNT Performing Lab: [facility] [address] [place] [facility] [address] CBC & NEUTROPHILS 65.8 07/26 Specimen Typ e: BLOOD [place] DIFF / Comment: Automa armand Differential Performed IS [facility] LEUKOCYTES Ordering Pro vider: MONICA RODRIGUEZ IN BLOOD BY Report Rele ased Date/Time: Jan 10, 2021 11:21 AM MANUAL Reporting Lab: [facility] [address] [place] [address] Performing Lab: [facility] [address] [place] [facility] [address] CBC & LYMPHOCYTES 21.5 07/26 Specimen Typ e: BLOOD [place] DIFF / Comment: Automa armand Differential Performed IS [facility] LEUKOCYTES Ordering Pro vider: ANTONIO RODRIGUEZE Elpidio IN BLOOD BY Report Rele ased Date/Time: Jan 10, 2021 11:21 AM MANUAL Reporting Lab: [facility] [address] [place] [facility] [address] Performing Lab: [facility] [address] [place] [facility] [address] CBC & MONOCYTES/1 10.2 07/26 Specimen Typ e: BLOOD [place] DIFF Comment: Automa armand Differential Performed IS [facility] LEUKOCYTES Ordering Pro vider: MONICA RODRIGUEZ IN BLOOD BY Report Rele ased Date/Time: Jan 10, 2021 11:21 AM AUTOMATED Reporting Lab : [facility] [address] [place] [facility] [address] Performing Lab: [facility] [address] [place] [facility] [address] CBC & EOSINOPHILS 1.8 07/26 Specimen Typ e: BLOOD [place] DIFF / Comment: Automa armand Differential Performed IS [facility] LEUKOCYTES Ordering Pro vider: MONICA RODRIGUEZ IN BLOOD BY Report Rele ased Date/Time: Jan 10, 2021 11:21 AM AUTOMATED Reporting Lab : [facility] [address] [place] [facility] [address] Performing Lab: [facility] [address] [place] [facility] [address] CBC & BASOPHILS/1 0.5 07/26 Specimen Typ e: BLOOD [place] DIFF Comment: Automa armand Differential Performed IS [facility] LEUKOCYTES Ordering Pro vider: MONICA RODRIGUEZ J IN BLOOD BY Report Rele ased Date/Time: Jan 10, 2021 11:21 AM MANUAL Reporting Lab: [facility] COUNT [address] [place] [facility] [address] Performing Lab: [facility] [address] [place] [facility] [address] CBC & ERYTHROCYTE 13.2 11.5 - 07/26 Specimen Typ e: BLOOD [place] DIFF DISTRIBUTIO 14.5 /2020 Comment: Au tomated Differential Performed IS [facility] N WIDTH Ordering Provid er: MONICA RODRIGUEZ [RATIO] BY Report Relea sed Date/Time: Jan 10, 2021 11:21 AM AUTOMATED Reporting Lab : [facility] COUNT [address] [place] [facility] [address] Performing Lab: [facility] [address] [place] [facility] [address] CBC & LYMPHOCYTES 0.95 1.0 - 4.0 12/ L Specimen T ype: BLOOD [place] DIFF [#/VOLUME] /2020 Comment: Aut omated Differential Performed IS [facility] IN BLOOD BY Ordering Pr ovider: MONICA RODRIGUEZ AUTOMATED Report Releas ed Date/Time: Jan 10, 2021 11:21 AM COUNT Reporting Lab: [facility] [address] [place] [facility] [address] Performing Lab: [facility] [address] [place] [facility] [address] CBC & MONOCYTES 0.45 0.1 - 1.0 07/26 Specimen Typ e: BLOOD [place] DIFF [#/VOLUME] /2020 Comment: Aut omated Differential Performed IS [facility] IN BLOOD BY Ordering Pr ovider: MONICA RODRIGUEZ AUTOMATED Report Releas ed Date/Time: Jan 10, 2021 11:21 AM COUNT Reporting Lab: [facility] [address] [place] [facility] [address] Performing Lab: [facility] [address] [place] [facility] [address] CBC & NEUTROPHILS 2.90 2.0 - 7.7 07/26 Specimen T ype: BLOOD [place] DIFF [#/VOLUME] /2020 Comment: Aut omated Differential Performed IS [facility] IN BLOOD BY Ordering Pr ovider: MONICA RODRIGUEZ AUTOMATED Report Releas ed Date/Time: Jan 10, 2021 11:21 AM COUNT Reporting Lab: [facility] [address] [place] [facility] [address] Performing Lab: [facility] [address] [place] [facility] [address] CBC & EOSINOPHILS 0.08 0 - 0.5 07/26 Specimen Typ e: BLOOD [place] DIFF [#/VOLUME] /2020 Comment: Aut omated Differential Performed IS [facility] IN BLOOD BY Ordering Pr ovider: MONICA RODRIGUEZ AUTOMATED Report Releas ed Date/Time: Jan 10, 2021 11:21 AM COUNT Reporting Lab: [facility] [address] [place] [place] [address] Performing Lab: [facility] [address] [place] [facility] [address] CBC & BASOPHILS 0.02 0 - 0.2 07/26 Specimen Type: BLOOD [place] DIFF [#/VOLUME] /2020 Comment: Aut omated Differential Performed IS [facility] IN BLOOD BY Ordering Pr ovider: MONICA RODRIGUEZ AUTOMATED Report Releas ed Date/Time: Jan 10, 2021 11:21 AM COUNT Reporting Lab: [facility] [address] [place] [address] Performing Lab: [facility] [address] [place] [address] CBC & IG(META,MYE 0.2 07/26 Specimen Typ e: BLOOD [place] DIFF LO,PRO) /2020 Comment: Automa armand Differential Performed IS [facility] Ordering Provid er: MONICA RODRIGUEZ Report Released Date/Time: Jan 10, 2021 11:21 AM Reporting Lab: [facility] [address] [place] [address] Performing Lab: [facility] [address] [place] [address] CBC & IMMATURE 0.01 0 - 0.1 07/26 Specimen Type: BLOOD [place] DIFF GRANULOCYTE /2020 Comment: Au tomated Differential Performed IS [facility] S Ordering Provid er: MONICA RODRIGUEZ [PRESENCE] Report Relea sed Date/Time: Jan 10, 2021 11:21 AM IN BLOOD BY Reporting L ab: [facility] AUTOMATED [address] [facility] [address] COUNT Performing Lab: [facility] [address] [place] [facility] [address] Vital Signs Combined list of inpatient and outpatient Vital Signs from Department of Defense and Veterans Affairs, ranging from 12 months to all on record, depending upon the facility. Vital Sign Value Date Comments Source SYSTOLIC BLOOD PRESSURE 136 07/26/2021 10:25:05 [place] ([facility]) DIASTOLIC BLOOD PRESSURE 72 07/26/2021 10:25:05 EDUARDO [...] going back up to the last 18 months. 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 Location Location Encounter Encounter Reason Attending ADM DC Stat us Disposition Source Details Type Number For Provider [place] [address]-3.61 Diagnos JOSEE,CHR 10/19 [place] 45 MINUTES [id number] is: ISTINE E /2020 E R 86 ICD-10- (CBOC) CM F41.9 Anxiety disorde r, unspeci fied
with Provide r Comment s: Exposur e to combat ([facility] [id number] 07) PSYTX W PT Diagnos JOSEE,CHR 11/23 [place] 45 MINUTES [id number] is: ISTINE E /2020 E R 49 ICD-10- (CBOC) CM F41.9 Anxiety disorde r, unspeci fied
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
with Provide r Comment s: Sensori neural hearing loss, bilater al Outpatient O'HERNESTO, 01/30 [place] Encounter [id number] [facility] PSYTX W PT Diagnos CHIROS,[facility] 02/06 [place] 45 MINUTES [id number] is: ISTINE E /2020 E R 37 ICD-10- (CBOC) CM F41.9 Anxiety disorde r, unspeci fied
with Provide r Comment s: Exposur e to combat ([facility] [id number] 07) OFFICE O/P Diagnos GABRIELLA,ANT 02/22 [place] EST [id number] is: HONY T ER MINIMAL 11 ICD-10- (CBOC) PROB CM I10 Essenti al (primar y) hyperte nsion<b r/>with Provide r Comment s: Hyperte nsive disorde r ([facility] [id number] 3) OFFICE Diagnos ERNARAMAKRISHNA 02/28 [place] CONSULTATI [id number] is: EN L [place] ON ICD-10- HCS CM R35.1 Nocturi a
w ith Provide r Comment s: Nocturi a PSYTX W PT Diagnos [facility] 03/21 [place] 45 MINUTES [id number] is: ISTINE E /2020 E R 32 ICD-10- (CBOC) CM F41.9 Anxiety disorde r, unspeci fied
with Provide r Comment s: Exposur e to combat ([facility] [id number] 07) PSYTX W PT Diagnos [facility] 04/26 [place] 45 MINUTES [id number] is: ISTINE E O [place] ICD-10- HCS CM F41.9 Anxiety disorde r, unspeci fied
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
with Provide r Comment s: Sensori neural hearing loss, bilater al PSYTX W PT Diagnos CHIROS,CHR 05/31 [place] 45 MINUTES [id number] is: ISTINE E O [place] ICD-10- HCS CM F41.9 Anxiety disorde r, unspeci fied
with Provide r Comment s: Exposur e to combat ([facility] [id number] 07) PSYTX W PT Diagnos CHIROS,CHR 07/05 [place] 45 MINUTES [id number] is: ISTINE E /2020 O [place] ICD-10- HCS CM F41.9 Anxiety disorde r, unspeci fied
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
with Provide r Comment s: Exposur e to combat ([facility] [id number] 07) PSYTX W PT Diagnos CHIROS,CHR 10/30 [place] 45 MINUTES [id number] is: ISTINE E /2021 E R 17 ICD-10- (CBOC) CM F41.9 Anxiety disorde r, unspeci fied
with Provide r Comment s: Exposur e to combat ([facility] [id number] 07) ADM 48908-9.61 Diagnos GABRIELLA,ANT 10/30 [place] SARSCV2 [id number] is: HONY T ER 30MCG 34 ICD-10- (CBOC) TRS-SUCR B CM Z23 Encount er for immuniz ation<b r/>with Provide r Comment s: Encount er for Immuniz ation [place] PRO 36770-4.61 Diagnos TEE CHUN 12/26 [place] PHONE CALL [id number] is: /2021 [place] 5-10 MIN ICD-10- HCS CM Z71.89 Other specifi ed personnel counselor ing<br/ >with Provide r Comment s: Other spec[place] [address]-9.61 Diagnos CHIROS,CHR 01/01 [place] 45 MINUTES [id number] is: ISTINE E /2021 E R 47 ICD-10- (CBOC) CM F41.9 Anxiety disorde r, unspeci fied
with Provide r Comment s: Exposur e to combat ([facility] [id number] 07) HC PRO 57284-0.61 Diagnos [place] 01/10 [place] PHONE CALL [id number] is: EL R [place] 11-20 MIN ICD-10- HCS CM Z71.89 Other specifi ed personnel counselor ing<br/ >with Provide r Comment s: Other specifi ed personnel counselor ing Outpatient 02136-1.61 01/10 [place] Encounter [id number] [facility] Outpatient 47763-1. Ray COLLAZO 01/17 [place] Encounter [id number] ERRY [facility] Outpatient 37335-1. VIRGEN BOBO 01/17 [place] Encounter [id number] SSICA L RUDY [facility] Outpatient 61308-8. 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
with Provide r Comment s: Exposur e to combat ([facility] [id number] 07) Outpatient [id number] Diagnos MICHELLE WILKINS 02/27 [place] Encounter [id number] is: CA J [place] ICD-10- HCS CM G47.9 Sleep disorde r, unspeci fied
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 Social History Response Date Comment Source [...] of tobacco FORMER TOBACCO USER 11/25/2012 [facility] use 7Y OR GREATER History of tobacco FORMER TOBACCO USER 12/14/2006 [facility] use 7Y OR GREATER History of tobacco LIFETIME 12/19/2005 He quit smoking on [facility] use NON-SMOKER/QUIT 7 1982. YRS OR> Plan of Care List of future care activities from [facility] facilities. Additional future care activities may be listed in the Assessment and Plan section. Date/Time Care Activity Care Activity Detail Facility 04/30/2022 AMBULATORY - PSYCHIATRY AMBULATORY - PSYCHIATRY [place] ([facility]) Advance Directives List of completed, amended, or rescinded Advance Directives on record at [facility] facilities. An actual copy of the Directive is not included. Date Advance Directive Provider Source 03/12/2019 ADVANCE DIRECTIVE KIARA BRANDT [facility] 03/12/2019 ADVANCE DIRECTIVE DISCUSSION KIARA BRANDT [facility]
--- OUTSIDE RECORDS SUMMARY | 2022-04-21 11:24 | XMS_ITS | Clinical Summary ---
:1945 Author Organization [employer] [facility] [place] [address] Care Team Providers Name Role Phone [place], [place] Primary Care Provider Allergies Active Allergy Reactions Severity Noted Date Comments Citalopram Other - Describe In 05/25/2018 Pain and sensitivity in Comment Field genitals Sertraline *Unknown 10/10/2017 Medications Medication Sig Dispensed Refills Start Date End Date Status tamsulosin (FLOMAX) 0.4 mg Take 1 capsule 0 09/28/19 16 Active capsule by mouth at bedtime. Kris Phos-Mag Hydrx-C & Take by mouth. 0 10/10/2017 Active D3-Phos 187.5-40-7.5 mg tab ferrous sulfate 325 mg Take 1 tablet 0 05/25/2018 Active delayed release tablet by mouth 3 times daily with meals. finasteride (PROSCAR) 5 mg Take 1 Tablet 0 2 Active tablet (5 mg) by mouth every morning. hydroCHLOROthiazide (HCTZ) Take 1 Tablet 90 Tablet 3 2 Active 25 mg tablet (25 mg) by mouth once daily. 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 Resolved Problems Problem Noted Date Resolved Date DVT (deep venous thrombosis) 09/19/2015 09/19/2015 Anticoagulation monitoring, special range (1.5-2.5) 09/19/19 16 10/12/2015 Anticoagulation monitoring, INR range 2-3 09/19/2015 10/12/2015 Nutritional anemia 09/19/2015 09/19/2015 Immunizations Name Administration Dates Next Due Influenza, High-dose Inactivated 04/28/2015 Influenza, Inactivated IIV3 (Age 65+ Years) Preserv 04/27/20 18 Free Family History Medical History Relation Name Comments Other Child 1 HHT Other Child 2 HHT Other Father HHT Dementia Maternal Grandfather Atrial fibrillation Mother Stroke Mother at age 95 Cancer Paternal Grandmother unknown typ e Other Paternal Grandmother HHT Other Sister 1 HHT Relation Name Status Comments Child 1 Alive Child 2 Alive Father Maternal Grandfather Maternal Grandmother Mother Paternal Grandfather Paternal Grandmother Sister 1 Alive Sister 2 Alive Social History Tobacco Use Types Packs/Day Years Used Date Former Smoker Cigarettes 02/27/1965 - 1 Smokeless Tobacco: Never Used Tobacco Cessation: Counseling Given: Yes Alcohol Use Standard Drinks/Week Comments Yes 10 (1 standard drink = 0.6 oz pure alcoh ol) per week Alcohol Habits Answer Date Recorded How often do you have a drink containing alcohol? Not asked How many drinks containing alcohol do you have on a typical Not asked day when you are drinking? How often do you have six or more drinks on one occasion? No t asked Comment: per week 06/02/2018 Sex Assigned at Date Recorded Not on file Obstetrics History Last Filed Vital Signs Vital Sign Reading Time Taken Comments Blood Pressure 125/66 12/20/2021 7:30 AM CDT Pulse 57 12/20/2021 7:30 AM CDT Temperature 36.6 ??C (97.8 ??F) 09/24/2018 9:50 AM PEDIATRIC ALLERGIST Respiratory Rate 16 10/10/2017 12:23 PM CDT Oxygen Saturation 97% 12/20/2021 7:30 AM CDT Inhaled Oxygen Concentration - - Weight 80.3 kg (177 lb) 12/20/2021 7:30 AM CDT Height 174 cm (5' 8.5) 02/08/2019 3:09 PM CDT Body Mass Index 26.52 02/08/2019 3:09 PM CDT Plan of Treatment Health Maintenance Due Date Last Done Comments COVID-19 vaccine series (#1) 1945 Tdap 1957 Hepatitis C screening for age 1106/20/1964 18-79 Tetanus booster 1966 Lipids for age 45-75 1991 Zoster (shingles) series for age 1106/20/1996 50+ (1 of 2) AAA screening age 55-77 2001 Medicare Wellness for age 65+ 2011 Pneumococcal series for age 65+ (1 2011 - PCV) Depression screening for age 12+ 06/02/2019 06/02/2018, , 09/19/2015, Additional history exists BMI (ht and wt on same day) for 02/09/2020 02/08/2019, 05/28, age 18+ 06/02/2018, Additional history exists Influenza for age 65+ 03/28/2022 04/27/2018, 04/28/2015 Colonoscopy through age 75 07/28/2025 07/28/2015 (Completed outside of [facility]) Results Not on filefrom Last 3 Months Insurance Payer Benefit Plan / Subscriber ID Effective Dates Phone Addre ss Type Group HUMANA GOLD MR HUMANA CHOICE [id number] 2021-Present [address] [address] [place] [address] Guarantor Name Account Type Relation to Date of Phone Bill ing Patient Address Juan Marcum Personal/Family Self [address] (Home) [place] [address] Advance Directives Documents on File Type Date Recorded Patient Clinical Field Specialist Explanati on Healthcare Directive 01/22/2019 11:45 AM HEALTH C ARE DIRECTIVE, HONORING CHOICES [place], 01/20 Care Teams Wall Man Relationship Specialty Start Date End Date Hospital, [facility] PCP - General 07/12/20 1 [facility] [place] [id number]
--- OUTSIDE RECORDS SUMMARY | 2022-04-21 11:25 | XMS_ITS | Encounter Summary ---
:1945 Author Organization [facility] Address [address] [place] [address] Support Name Relationship Address Phone TERRELL FORD [...] Number Chen BLUELINK COMPREHEN MAXI Jul 28, [id number] [phone] JAZMIN ELAURENCEU PATIENT TPA SIVE E-O 2005 [id number] L MAJOR [facility] STOR EXPRESS PRESCRIPT MAXI Jul 28, KEERTHI [id number] [phone] MARIELOS IBARRA PATIENT SCRIPTS - ION E O 2005 [id number] L SUBROGATIO TURKE N Y HUMANA MCR MEDICARE MCR Jul 28, [id number] [phone] KLU DELMERMARIELOS PATIENT (WNR) ADVANTAGE (WNR) 2013 1 89 8 L [employer] MCR MEDICARE MCR Jul 28, [id number] [phone] KLU DELMERMARIELOS PATIENT (WNR) ADVANTAGE (WNR) 2013 1 89 2 L [employer] MCR MEDICARE MCR Jul 28, [id number] NIKHIL DOWELLMARIELOS PATIENT (WNR) ADVANTAGE (WNR) 2013 1 89 0 L Selected Encounter This section includes the information on record at [place] for the Encounter. Date/Time Encounter Type Encounter Reason Provider Source Description Oct 30, 2021 ADM SARSCV2 GENERAL INTERNAL ICD-10-CM Z23 MARKO QUIROZ 10:00 AM 30MCG TRS-SUCR MEDICINE Encounter for Y T B immunization with Provider Comments: Encounter for Immunization IHE Encounter Template Text not used by [facility] Assessments - Encounter Diagnoses This section includes the primary and secondary diagnoses documented for the Encounter. Date/Time Primary/Secondary Diagnosis Name Provider Source Diagnosis Oct 30, 2021 PRIMARY Encounter for FERDINAND QUIROZ 10:10 AM immunization T ([facility]) Plan of Treatment: Future Appointments (+ 6 months) and Future Tests (+/- 45 days) The Plan of Treatment section includes future care activities for the patient from all [place] treatmentfacilities. This section includes future appointments and future orders which are active, pending orscheduled.Future Appointments This section includes appointments that were scheduled to occur 6 months from the date of the Encounter, up to a maximum of 20 appointments. The data comes from all [place] treatment facilities. Appointment Date/Time Appointment Type Appointment Facili ty Name Jan 01, 2022 02:00 PM AMBULATORY - [facility]CHIATRY [facility] ([facility]) Feb 15, 2022 10:15 AM AMBULATORY - NONE [facility] ([facility]) Feb 15, 2022 12:43 PM AMBULATORY - NONE [facility] Feb 22, 2022 02:30 PM AMBULATORY - MEDICINE [facility] Feb 26, 2022 11:00 AM AMBULATORY - PSYCHIATRY [facility] ([facility]) Apr 30, 2022 11:00 AM AMBULATORY - PS[facility]IATRY [facility] ([facility]) Immunizations: All administered on the encounter date This section contains immunizations associated to the Encounter. Immunization Series Date Issued Reaction Comments COVID-19 (PFIZER), MRNA, LNP-S, 3 Oct 30, 2021 PFR; [id number]; 12/25/2021 PF, 30 MCG/0.3 ML DOSE, DAWNA-SUCROSE (AGES 12+ YEARS) Social History: Smoking Status (Most current) and Tobacco Use (All prior to encounter date) This section includes the most current, and the historical, smoking and tobacco-related health factors from the [place] facility where the Encounter took place.Current Smoking Status This section includes the most current smoking, or tobacco-related health factor, from the [place] facility where the Encounter took place. Date/Time Current Smoking Status Comment Facility Jul 26, 2021 10:15 AM [place]-TOBACCO QUIT 15 YRS OR MORE [facility] ([facility]) Tobacco Use History This section includes a history of the smoking, or tobacco- related health factors, that were collected on or before the date of the Encounter. The data comes from the [place] facility where the Encounter took place. Date/Time Smoking Status/Tobacco Use Comment Facil ity Jul 26, 2021 10:15 AM VA-TOBACCO QUIT 15 YRS OR MORE [facility] ([facility]) Jul 18, 2020 01:45 PM VA-TOBACCO FORMER USER [facility] ([facility]) Jul 18, 2020 01:45 PM VA-TOBACCO QUIT 15 YRS OR MORE [facility] ([facility]) Oct 20, 2018 09:43 AM VA-TOBACCO FORMER USER [facility] ([facility]) Oct 20, 2018 09:43 AM VA-TOBACCO QUIT 15 YRS OR MORE [facility] ([facility]) Aug 29, 2017 10:26 AM FORMER TOBACCO USER 7Y OR GREATER [facility] ([facility]) Mar 18, 2016 10:08 AM FORMER TOBACCO USER 7Y OR GREATER [facility] ([facility]) Jun 06, 2015 12:30 PM FORMER TOBACCO USER 7Y OR GREATER [facility] ([facility]) Apr 08, 2014 09:02 AM FORMER TOBACCO USER 7Y OR GREATER [facility] ([facility]) Advance Directives: All historical and current Section Date Range: From patient's date of to the date document was created. This section includes ALL of a patient's completed or amended [place] Advance and Rescinded Directives. The entries below indicate that a directive exists for the patient, but an actual copy is not included with this document. The data comes from all [place] facilities. Date Advance Directives Provider Source Mar 12, 2019 ADVANCE DIRECTIVE KIARA BRANDT [facility] Mar 12, 2019 ADVANCE DIRECTIVE DISCUSSION KIARA BRANDT [facility] Encounter Notes: All associated encounter notes This section contains the clinical notes associated to the Encounter. Date/Time Encounter Note(s) Provider Source Oct 30, 2021 10:09 AM NURSING IMMUNIZATION NOTE: FERDINAND QUIROZ ([facility]) LOCAL TITLE: VAAES NSG COVID-19 VACCINE ADMINIS TRATION STANDARD TITLE: NURSING IMMUNIZATION NOTE DATE OF NOTE: OCT 30, 2021@10:09 ENTRY DATE: OCT 30, 2021@10:09:18 AUTHOR: FERDINAND QUIROZ EXP COSIGNER: URGENCY: STATUS: COMPLETED The patient was given the VIS for this vaccine w [facility] lists the benefits and side effects of the vaccine and which reviews th e risks of the vaccine. The fact sheet was reviewed with the patient and they were given an opportunity to ask questions. The patient denied any pr ior severe reaction to this vaccine or its components or a severe allergic reaction suc h as anaphylaxis to any vaccine or to any injectable therapy. The patien t gave verbal consent to receive the vaccine. Booster Dose: The patient received Pfizer COVID-19 Vaccine 0. 3 ml IM. Series: Series 3 MVX (Manuf); Lot#; Exp Date: PFR; [id number]; 12/25 Administration Anatomic site: Right Deltoid Vaccine administered without complications. The patient was advised to remain in the facility for 15 minutes p ost vaccination. The patient was given a completed COVID-19 vaccination record card, a copy of the VA Side Effects and Adverse Events Reporting Fact Sheet and ins tructed on how to report any adverse reactions. /catia/ FERDINAND QUIROZ [place] [facility] Staff Nurse Signed: 10/30/2021 10:11 Receipt Acknowledged By: * AWAITING SIGNATURE * BRYAN TRIPP
--- OUTSIDE RECORDS SUMMARY | 2022-04-21 11:25 | XMS_ITS | Encounter Summary ---
:1945 Author Organization [facility] Address [address] [place] [address] Support Name Relationship Address Phone LILIANA TERRELL [...] Number Chen BLUELINK COMPREHEN MAXI Jul 28, [id number] [phone] JAZMIN ELAURENCEU PATIENT TPA SIVE E-O 2005 [id number] L MA[facility]OR [facility] STOR EXPRESS PRESCRIPT [facility] Jul 28, KEERTHI [id number] [phone] MARIELOS IBARRA PATIENT SCRIPTS - ION E O 2005 [id number] L SUBROGATIO TURKE N Y [employer]NA MCR MEDICARE MCR Jul 28, [id number] [phone] KLU DELMERMARIELOS PATIENT (WNR) ADVANTAGE (WNR) 2013 1 89 8 L [employer] MCR MEDICARE MCR Jul 28, [id number] KLU DELMERMARIELOS PATIENT (WNR) ADVANTAGE (WNR) 2013 1 89 0 L [employer] MCR MEDICARE MCR Jul 28, [id number] [phone] KLU DELMERMARIELOS PATIENT (WNR) ADVANTAGE (WNR) 2013 1 89 2 L Selected Encounter This section includes the information on record at [place] for the Encounter. Date/Time Encounter Type Encounter Reason Provider Source Description Oct 30, 2021 PSYTX W PT 45 MH INTGRTD CARE ICD-10-CM F41.9 CHIROS,CHR ISTI 09:00 AM MINUTES IND Anxiety disorder, NE E unspecified with Provider Comments: Exposure to combat ([facility] [id number]) IHE Encounter Template Text not used by VA Assessments - Encounter Diagnoses This section includes the primary and secondary diagnoses documented for the Encounter. Date/Time Primary/Secondary Diagnosis Name Provider Source Diagnosis Oct 30, 2021 PRIMARY Anxiety disorder, ADRIANAS,TEJAS RAMOS R 12:28 PM unspecified NE E ([facility]) Plan of Treatment: Future Appointments (+ 6 months) and Future Tests (+/- 45 days) The Plan of Treatment section includes future care activities for the patient from all [place] treatmentfacilities. This section includes future appointments and future orders which are active, pending orscheduled.Future Appointments This section includes appointments that were scheduled to occur 6 months from the date of the Encounter, up to a maximum of 20 appointments. The data comes from all [place] treatment facilities. Appointment Date/Time Appointment Type Appointment Facili ty Name Jan 01, 2022 02:00 PM AMBULATORY - PS[place]CHIATRY [place] [facility] ([facility]) Feb 15, 2022 10:15 AM AMBULATORY - NONE [place] [facility] ([facility]) Feb 15, 2022 12:43 PM AMBULATORY - NONE [facility] Feb 22, 2022 02:30 PM AMBULATORY - MEDICINE [facility] Feb 26, 2022 11:00 AM AMBULATORY - PS[facility]CHIATRY [place] ([facility]) Apr 30, 2022 11:00 AM AMBULATORY - PS[facility]CHIATRY [place] [facility] ([facility]) Social History: Smoking Status (Most current) and Tobacco Use (All prior to encounter date) This section includes the most current, and the historical, smoking and tobacco-related health factors from the [place] facility where the Encounter took place.Current Smoking Status This section includes the most current smoking, or tobacco-related health factor, from the [place] facility where the Encounter took place. Date/Time Current Smoking Status Comment Facility Jul 26, 2021 10:15 [facility] [place] [facility] Tobacco Use History This section includes a history of the smoking, or tobacco- related health factors, that were collected on or before the date of the Encounter. The data comes from the [place] facility where the Encounter took place. Date/Time Smoking Status/Tobacco Use Comment [facility] Jul 26, 2021 10:15 AM VA-TOBACCO QUIT 15 YRS OR MORE [facility] ([facility]) Jul 18, 2020 01:45 PM VA-TOBACCO FORMER USER [facility] ([facility]) Jul 18, 2020 01:45 PM VA-TOBACCO QUIT 15 YRS OR MORE [facility] ([facility]) Oct 20, 2018 09:43 AM VA-TOBACCO FORMER USER [facility] ([facility]) Oct 20, 2018 09:43 AM VA-TOBACCO QUIT 15 YRS OR MORE [facility] ([facility]) Aug 29, 2017 10:26 AM FORMER TOBACCO USER 7Y OR GREATER [facility] ([facility]) Mar 18, 2016 10:08 AM FORMER TOBACCO USER 7Y OR GREATER [facility] ([facility]) Jun 06, 2015 12:30 PM FORMER TOBACCO USER 7Y OR GREATER [facility] ([facility]) Apr 08, 2014 09:02 AM FORMER TOBACCO USER 7Y OR GREATER [facility] ([facility]) Advance Directives: All historical and current Section Date Range: From patient's date of to the date document was created. This section includes ALL of a patient's completed or amended [place] Advance and Rescinded Directives. The entries below indicate that a directive exists for the patient, but an actual copy is not included with this document. The data comes from all [place] facilities. Date Advance Directives Provider Source Mar 12, 2019 ADVANCE DIRECTIVE KIARA BRANDT [facility] Mar 12, 2019 ADVANCE DIRECTIVE DISCUSSION KIARA BRANDT [facility] Encounter Notes: All associated encounter notes This section contains the clinical notes associated to the Encounter. Date/Time Encounter Note(s) Provider Source Oct 30, 2021 09:00 AM MENTAL HEALTH NOTE: BRYAN TRIPP ([facility]) LOCAL TITLE: MH PROGRESS NOTE STANDARD TITLE: MENTAL HEALTH NOTE DATE OF NOTE: OCT 30, 2021@09:00 ENTRY DATE: OCT 30, 2021@09:48:36 AUTHOR: BRYAN TRIPP EXP COSIGNER: URGENCY: STATUS: COMPLETED Individual Psychotherapy: 50 minutes f2f S/O - Patient on time for session. Focus today o n relatioships, identifying function behind not wanting to say the wrong thing (noting sometimes might be values driven and sometimes might be experientia l avoidance). Patient able to walk through several examples and consider ways to differentiate the two. Patient sees he progress in being able to be mor e flexible with himself and others, and how this may be playing out in more connection with others, more general satisfaction in how he spends his time. Handouts: none today Problem for which patient treated today: Exposure to combat ([facility] [id number]) - Anxiety dis order, unspecified (ICD-10-CM F41.9) (Primary) Mental Status: Mood: euthymic Affect: Appropriate, Full-Range Speech: Normal rate, Normal rhythm, Normal volum e Thought Content: Normal Thought Processes: Logical, Goal Oriented Suicidality: Absent Homicidality: Absent Hallucinations: Absent Delusions: Absent Oriented: Fully Oriented Judgement: good Insight: good Progress Toward Goals: overall patient doing wel l, using skills with good effect P/ update to treatment plan - Continue individua l psychotherapy, f/u in early December Suicide Screen: C-SSRS Screening Lacey-Suicide Severity Rating Scale (C-SSRS Screener) 1. Over the past month, have you wished you wer e or wished you could go to sleep and not wake up? No 2. Over the past month, have you had any actual thoughts of killing yourself? No 3. Over the past month, have you been thinking about how you might do this? Response not required due to responses to other questions. 4. Over the past month, have you had these thou ghts and had some intention of acting on them? Response not required due to responses to other questions. 5. Over the past month, have you started to wor k out or worked out the details of how to kill yourself? Response not required due to responses to other questions. 6. If yes, at any time in the past month did yo u intend to carry out this plan? Response not required due to responses to other questions. 7. In your lifetime, have you ever done anythin g, started to do anything, or prepared to do anything to end you r life (for example, collected pills, obtained a gun, gave away valu dustin, went to the roof but didn't jump)? No 8. If YES, was this within the past 3 months? Response not required due to responses to other questions. /catia/ BRYAN TRIPP, PHD, LP PSYCHOLOGIST Signed: 10/30/2021 12:28
--- OUTSIDE RECORDS SUMMARY | 2022-04-21 11:25 | XMS_ITS | Encounter Summary ---
:1945 Author Organization [facility] Address [address] [place] [address] Support Name Relationship Address Phone TERRELL FORD [...] Number Chen BLUELINK COMPREHEN MAXI Jul 28, [id number] [phone] JAZMIN ELAURENCEU PATIENT TPA SIVE E-O 2006 0 [id number] L MAJOR [facility] STOR EXPRESS PRESCRIPT MAXI Jul 28, KEERTHI [id number] [phone] MARIELOS IBARRA PATIENT SCRIPTS - ION E O 2005 [id number] L SUBROGATIO TURKE N Y HUMANA MCR MEDICARE MCR Jul 28, [id number] [phone] KLU DELMERMARIELOS PATIENT (WNR) ADVANTAGE (WNR) 2013 1 89 8 L [employer] MCR MEDICARE MCR Jul 28, [id number] KLU DELMERMARIELOS PATIENT (WNR) ADVANTAGE (WNR) 2013 1 89 0 L [employer] MCR MEDICARE MCR Jul 28, [id number] [phone] KLViraj DOWELLMARIELOS PATIENT (WNR) ADVANTAGE (WNR) 2013 1 89 2 L Selected Encounter This section includes the information on record at [place] for the Encounter. Date/Time Encounter Type Encounter Reason Provider Source Description Dec 26, 2021 HC PRO PHONE CALL TELEPHONE TRIAGE ICD-10-CM Z71.89 TEE CHUN 12:36 PM 5-10 MIN Other specified counseling with Provider Comments: Other specified counseling IHE Encounter Template Text not used by [place] Assessments - Encounter Diagnoses This section includes the primary and secondary diagnoses documented for the Encounter. Date/Time Primary/Secondary Diagnosis Name Provider Source Diagnosis Dec 26, 2021 PRIMARY Other specified TEE CHUN [facility] 12:36 PM counseling Plan of Treatment: Future Appointments (+ 6 months) and Future Tests (+/- 45 days) The Plan of Treatment section includes future care activities for the patient from all [place] [facility]. This section includes future appointments and future orders which are active, pending orscheduled.Future Appointments This section includes appointments that were scheduled to occur 6 months from the date of the Encounter, up to a maximum of 20 appointments. The data comes from all [place] treatment facilities. Appointment Date/Time Appointment Type Appointment Facili ty Name Jan 01, 2022 02:00 PM AMBULATORY - PS[facility]CHIATRY [place] ([facility]) Feb 15, 2022 10:15 AM AMBULATORY - NONE [place] ([facility]) Feb 15, 2022 12:43 PM AMBULATORY - NONE [facility] Feb 22, 2022 02:30 PM AMBULATORY - MEDICINE [facility] Feb 26, 2022 11:00 AM AMBULATORY - PS[facility]CHIATRY [place] ([facility]) Apr 30, 2022 11:00 AM AMBULATORY - PS[facility]CHIATRY [place] ([facility]) Jun 25, 2022 09:30 AM AMBULATORY - NONE [place] ([facility]) Advance Directives: All historical and current Section Date Range: From patient's date of to the date document was created. This section includes ALL of a patient's completed or amended [place] Advance and Rescinded Directives. The entries below indicate that a directive exists for the patient, but an actual copy is not included with this document. The data comes from all [facility]. Date Advance Directives Provider Source Mar 12, 2019 ADVANCE DIRECTIVE KIARA BRANDT [facility] Mar 12, 2019 ADVANCE DIRECTIVE DISCUSSION KIARA BRANDT [facility] Encounter Notes: All associated encounter notes This section contains the clinical notes associated to the Encounter. Date/Time Encounter Note(s) Provider Source Dec 26, 2021 12:36 PM NURSING TELEPHONE ENCOUNTER NOTE: TEE CHUN [facility] LOCAL TITLE: TELEPHONE CARE NURSE TRIAGE STANDARD TITLE: NURSING TELEPHONE ENCOUNTER NOTE DATE OF NOTE: DEC 26, 2021@12:36:25 ENTRY DATE: DEC 26, 2021@12:54:05 AUTHOR: TEE CHUN EXP COSIGNER: URGENCY: STATUS: COMPLETED TELEPHONE CARE NURSE TRIAGE Has ADDENDA Chief Complaint: Not applicable to call. The following identifiers were used to verify th is patient: DOB. KISER. Comments: Clinical Contact/Call Center Coronavirus Disease 2019 (COVID-19) Screen, [place]. November 2020 DIAGNOSIS AND TESTING STATUS: Has been diagnosed with COVID-19: () Yes* Date: (continue screening) (x) No (Continue Screening) Comment(s): Is waiting for COVID-19 test results: () Yes (Continue Screening) (x) No (Continue Screening) Comment: SCREEN: Signs and Symptoms: a. Fever or chills: () Yes Check all that apply: () Fever () Chills (x) No Comment(s): b. New or worsening cough or shortness of breat h: () Yes Check all that apply: () Cough () Shortness of breath (Dyspnea) (x) No Comment(s): c. Any cold or flu-like symptoms: () Yes Check all that apply: () Cold like symptoms () Runny Nose (Rhinorrhea) () Sore Throat () Flu-like symptoms () Fatigue () Muscle Pain (Myalgia) (x) No Comment(s): d. New onset diarrhea, nausea or vomiting: () Yes Check all that apply: () Diarrhea () Nausea () Vomiting (x) No Comment(s): e. New onset headache, loss of taste or loss of smell () Yes Check all that apply: () Headache () Loss of taste () Loss of smell (x) No Comment(s): EXPOSURE: Exposure (within 6 feet for more than 15 minute s) in the last two weeks (14 days) to someone with known or alec pected case of COVID-19: () Yes (x) No Comment(s): SCREEN RESULT: Any symptom or exposure= positiv e screen () POSITIVE SCREEN: Patient has a Positive symp abiodun and/or exposure. Follow- up required. (x) Negative Screen NURSES NOTES PATIENT CONCERN/DURATION/ONSET: Helena is calling to report ongoing left finn pain. Helena states he was seen at [facility] last week and was r/u for DVT. 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 It is kind of warm I am wondering what I should do. Helena denies new injuries, trauma, red ness, severe pain, wounds, CP and SOB. WHAT HAS PATIENT TRIED TO TREAT THE SYMPTOMS: Raeann valladares has taken APAP and rest with some relief HISTORY/PREVIOUS TREATMENT: [facility] Eval with negative US DVT last week, DVT in the past, LT anticoagulation WHAT IS PATIENT GOAL FOR THE CALL: Evalu ation of ongoing finn pain, requesting x-ray I afraid it might be bone cancer. DID YOU CONSIDER USING CCC LIP (TELE or VVC): ARIANE YUANCOLLECTIONS TECHNICIAN DISPOSITION: Triage nurse recommendati on is case management because of ongoing eval and treatment for finn pain, pos t [facility] eval. Alerting PACT for x-ray request. Encourage d to continue current home treatment recommended by [facility]. Helena can be reached at [phone]. (Caller could accurately sum marize the agreed upon plan of care as discussed in the education log portion of this note.) Per policy, automated recommendations for an ursula ointment indicates an interaction (virtual or in-person) with the care team. Author: TEE CHUN Caller Area: [place] The patient, [place] IBARRA ([id number]) Phon e: called the call center. Caller Response: OTHER Class Code: Other specified counseling. Contact Advised to contact Telephone Care for any questions, concerns, new or worsening symptoms; services available 17/02. Evaluation/Management Code: HC PRO PHONE CALL 5- 10 MIN ([id number]). Starting at: 12/26/2021 @ 12:36:25 PM Ending at: 12/26/2021 @ 12:45:34 PM Length: 9 minutes. Patient's Email Address: [email or web address] Provider Info: [facility]) ([id number]) PACT: GEENA PACT VIKING (Focus: ) Designated Pcp: EVANS SMALL PH ONE:[phone] Community Health Nurse: CAITLIN BOBO PHONE:[phone] Clinical Associate: ROVERTO WOODS PHONE:[phone] Fish Tender: MARY GARCIA PHON E:[phone] PACT Clinical Pharmacist: KYA JENKINS Clinical POC: Administrative POC: MH: [place] [id number] ([facility]) Psychologist BRYAN TRIPP PH ONE:[phone] PAGER:[phone] Type of call: CASE MANAGEMENT. /sameer CHUN RN VISN 23 DAYTIME COMMUNITY DEVELOPMENT OFFICER Signed: 12/26/2021 12:54 Receipt Acknowledged By: 12/26/2021 13:57 /sameer SPRAGUE RN, BSN Staff Nurse for CAITLIN BOBO 12/26/2021 ADDENDUM STATUS: COMPLETED Called . He states that he has sh in pain. Denies any redness, swelling, rash, redness or edema. Pain when pushes around his finn. Reviewed finn splints care with him ie ice, rest, hydration, good diet . Reviewed to seek care if symptoms worsen. Scheduled with PCP on , will call if symptoms improve and no longer need appt. /sameer SPRAGUE, RN, BSN Staff Nurse Signed: 12/26/2021 13:57
--- OUTSIDE RECORDS SUMMARY | 2022-04-21 11:25 | XMS_ITS | Encounter Summary ---
:1945 Author Organization Department [facility] rs Address [address] [place] [id number] Support Name Relationship Address Phone LILIANA TERRELL [...] Number Chen BLUELINK COMPREHEN MAXI Jul 28, [id number] [phone] JAZMIN ELAURENCEU PATIENT TPA SIVE E-O [phone] L [facility] PRESCRIPT MAXI Jul 28, KEERTHI [id number] [phone] MARIELOS MARCUM PATIENT SCRIPTS - ION E O 2005 [id number] L SUBROGATIO TURKE N Y [employer] MCR MEDICARE MCR Jul 28, [id number] [phone] KLU DELMERMARIELOS PATIENT (WNR) ADVANTAGE (WNR) 2013 1 89 8 L [employer] MCR MEDICARE MCR Jul 28, [id number] KLU DELMERMARIELOS PATIENT (WNR) ADVANTAGE (WNR) 2013 1 89 0 L [employer] MCR MEDICARE MCR Jul 28, [id number] [phone] KLU DELMERMARIELOS PATIENT (WNR) ADVANTAGE (WNR) 2013 1 89 2 L Selected Encounter This section includes the information on record at [place] for the Encounter. Date/Time Encounter Type Encounter Reason Provider Source Description Aug 10, 2021 OFFICE O/P EST ONCOLOGY/TUMOR ICD-10-CM I78.0 SHEILA RODRIGUEZ 03:00 PM MOD 30-39 MIN Hereditary J hemorrhagic telangiectasia with Provider Comments: HHT - Hereditary hemorrhagic telangiectasia (SCT [id number]) IHE Encounter Template Text not used by [facility] Assessments - Encounter Diagnoses This section includes the primary and secondary diagnoses documented for the Encounter. 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 This section includes future appointments and future orders which are active, pending orscheduled.Future Appointments This section includes appointments that were scheduled to occur 6 months from the date of the Encounter, up to a maximum of 20 appointments. The data comes from all [place] treatment facilities. Appointment Date/Time Appointment Type Appointment Facili ty Name Aug 28, 2021 11:00 AM AMBULATORY - PSYCHIATRY [facility] ([facility]) Oct 30, 2021 09:00 AM AMBULATORY - PSYCHIATRY CIRCLE ([facility]) Oct 30, 2021 10:00 AM AMBULATORY - MEDICINE CIRCLE ([facility]) Jan 01, 2022 02:00 PM AMBULATORY - PSYCHIATRY CIRCLE ([facility]) Lab Results: +/- 30 days of the encounter This section includes the Chemistry and Hematology Lab Results on record with [place] for the patient. Radiology Reports and Pathology Reports are provided separately, in subsequent sections.Lab Results This section contains the Chemistry/Hematology Results that were resulted 30 days before or 30 daysafter the date of the Encounter. Date/Time Source Result Type Result - Unit Interpretation Reference Range Comment Jul 26, 2021 11:02 AM CIRCLE ([facility]) IRON GROUP Specimen Type: PLASMA No comment enter ed. Ordering Provid er: EVANS SMALL Report Released Date/Time: Jul 26, 2021 10:58 AM Reporting Lab: [facility] I [facility] [address] Performing Lab: [facility] DRI [facility] [address] IRON 101 65-175 TIBC,CALCULATED 200 L 250-425 FERRITIN 56.1 21.8-274.7 IRON SATURATION 51 H 20-50 TRANSFERRIN 160 L 163-382 Jul 26, 2021 11:02 CIRCLE ([facility]) BASIC METABOLIC Specimen Ty pe: PLASMA AM PANEL+MG No comment enter ed. Ordering Provid er: EVANS SMALL Report Released Date/Time: Jul 26, 2021 10:58 AM Reporting [facility] [address] Performing Lab: [facility] [address] CREATININE 1.1 0.7-1.2 UREA NITROGEN 15 8-26 GLUCOSE 91 74-100 SODIUM 138 136-145 POTASSIUM 4.2 3.5-5.1 CHLORIDE 101 98-107 CO2 28 22-29 CALCIUM 9.7 8.4-10.2 MAGNESIUM 2.0 1.6-2.6 ANION GAP 9 5-15 ESTIMATED GFR(eGFR) 65 >60 Jul 26, 2021 11:02 CIRCLE ([facility]) LIPID PANEL,NON-FASTING Spe cimen Type: PLASMA AM No comment enter ed. Ordering Provid er: EVANS SMALL Report Released Date/Time: Jul 26, 2021 10:58 AM Reporting Lab: [facility] ONE [facility] [address] Performing Lab: [facility] [address] CHOLESTEROL 140 <199 .HDL 44 >40 LDL CALCULATION 78 <99 VLDL CALCULATION 18 <29 NON HDL CHOLESTEROL 96 <129 TRIG(NON FASTING) 92 <149 Jul 26, 2021 11:02 AM CIRCLE ([facility]) CBC Specimen Type: BLOOD No comment enter ed. Ordering Provid er: EVANS SMALL Report Released Date/Time: Jul 26, 2021 10:58 AM Reporting Lab: [facility] [address] Performing Lab: [facility] [address] WBC 4.47 4.0-11.0 RBC 4.35 L 4.6-6.2 HGB 15.1 13.5-17.9 HCT 45.1 41-54 MCV 103.7 H 80-100 MCH 34.7 H 27-33 MCHC 33.5 32.0-37.5 PLT 254 150-400 MPV 10.0 7.4-10.4 RDW 13.2 11.5-14.5 Jul 26, 2021 11:01 AM [facility] PSA Specim en Type: SERUM No comment enter ed. Ordering Provid er: IRENE UMANZOR Report Released Date/Time: Feb 28, 2021 05:23 PM Reporting Lab: [facility] [address] [facility] [address] Performing Lab: [facility] [place] [facility] [address] PSA 0.36 <4.00 Jul 26, 2021 11:01 AM [facility] IRON GROUP Specim en Type: SERUM No comment enter ed. Ordering Provid er: MONICA RODRIGUEZ Report Released Date/Time: Jan 10, 2021 11:21 AM Reporting Lab: [facility] [address] Performing Lab: [facility] [address] IRON 101 65-175 TIBC,CALCULATED 195 L 250-425 FERRITIN 47.4 21.8-274.7 IRON SATURATION 52 H 20-50 TRANSFERRIN 156 L 163-382 Jul 26, 2021 11:01 [facility] BASIC METABOLIC Specimen Type: PLASMA AM PANEL+MG No comment enter ed. Ordering Provid er: MONICA RODRIGUEZ Report Released Date/Time: Jan 10, 2021 11:21 AM Reporting Lab: [facility] [address] [facility] [address] Performing Lab: [facility] [id number] CREATININE 1.1 0.7-1.2 UREA NITROGEN 14 8-26 GLUCOSE 91 74-100 SODIUM 139 136-145 POTASSIUM 4.2 3.5-5.1 CHLORIDE 103 98-107 CO2 28 22-29 CALCIUM 9.6 8.4-10.2 MAGNESIUM 2.1 1.6-2.6 ANION GAP 8 5-15 ESTIMATED GFR(eGFR) 65 >60 Jul 26, 2021 11:01 AM [facility] CBC & DIFF Specim en Type: BLOOD Comment: Automa armand Differential Performed Ordering Provid er: MONICA RODRIGUEZ Report Released Date/Time: Jan 10, 2021 11:21 AM Reporting Lab: [facility] [address] [facility] [address] Performing Lab: [facility] [address] WBC 4.41 4.0-11.0 RBC 4.36 L 4.6-6.2 HGB 15.1 13.5-17.9 HCT 45.0 41-54 MCV 103.2 H 80-100 MCH 34.6 H 27-33 MCHC 33.6 32.0-37.5 PLT 244 150-400 MPV 10.0 7.4-10.4 NEUT 65.8 LYMPHS 21.5 MONO 10.2 EOSINO 1.8 BASO 0.5 RDW 13.2 11.5-14.5 ABS LYMPH 0.95 L 1.0-4.0 ABS MONO 0.45 0.1-1.0 ABS NEUT 2.90 2.0-7.7 ABS EOS 0.08 0-0.5 ABS BASO 0.02 0-0.2 IG(META,MYELO,PRO) 0.2 ABS IMMATURE GRAN 0.01 0-0.1 Advance Directives: All historical and current Section Date Range: From patient's date of to the date document was created. This section includes ALL of a patient's completed or amended [place] Advance and Rescinded Directives. The entries below indicate that a directive exists for the patient, but an actual copy is not included with this document. The data comes from all [place] facilities. Date Advance Directives Provider Source Mar 12, 2019 ADVANCE DIRECTIVE KIARA BRANDT [facility] Mar 12, 2019 ADVANCE DIRECTIVE DISCUSSION KIARA BRANDT [facility] Encounter Notes: All associated encounter notes This section contains the clinical notes associated to the Encounter. Date/Time Encounter Note(s) Provider Source Aug 10, 2021 03:00 PM HEMATOLOGY AND ONCOLOGY ATTENDING NOTE: MONICA IGLESIAS [facility] LOCAL TITLE: HEME/ONC CLINIC NOTE STANDARD TITLE: HEMATOLOGY AND ONCOLOGY ATTENDIN G NOTE DATE OF NOTE: AUG 10, 2021@15:00 ENTRY DATE: AUG 14, 2021@11:14:28 AUTHOR: MONICA RODRIGUEZ EXP COSIGNER: URGENCY: STATUS: COMPLETED Date of service: 08/10/2021 phone/VVC visit due to Covid-19 Pandemic understands limitations of phone/VVC appointments and consents to proceed. Reason for visit (CC): HHT Treatment/Plan: surveillance HPI: Pt is doing very well. He did have a recent nose bleed but it stopped per his usual, he gets occ bleed ing in his mouth from the AVM's. He is very familar with his disease and what to watch for, doesn't feel that anything is new or worsening. no blood in stool or urine. continues to keep quite busy and active. he continues to take his oral iron. 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 On 09/14/15 he was admitted to [facility] for a left leg DVT. In July, he had superficial thrombophlebitis in the calf vein that initially improved, then worsened. U/s showed extensive DVT in the l eft leg. He was started on lovenox 80 mg twice daily. Hgb dropped f rom 9 to 7.9. Pt. refused transfusion. Iron sat was 16%, and B12 and folic acid were no rmal. Ldh was normal. Patient was discussed with an oncolo gist at [facility] at that time and an IVC filter was not recommmended. He was discharged o n 09/17/15. He was admitted to [facility] on 09/24/15 for right-sided chest pain. CT showed multiple small PEs in his right c hest. He had been switched to [place], and had a subtherapeutic INR. He was restarted o n lovnenox to bridge for subtherapeutic INR. He was then discharged on wa rfarin 5 mg daily. Mr. Marcum most likely has HHT. 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 Currently off anticoagulation (as of 03/27/18) du e to bleeding at that time (ferritin 5.1 then). PAST MEDICAL HISTORY: Active problems - Computerized Problem List is t he source for the followin. Hypertensive disorder 2. HHT - Hereditary hemorrhagic telangiectasia (SNOMED CT 63093240) 3. Erectile dysfunction (SNOMED CT [id number]) 4. Ocular migraine 5. Iron deficiency anemia due to chronic blood loss 6. History of deep vein thrombosis - LLE 08/2015 7. Irritable bowel syndrome with diarrhea 8. Pulmonary embolism - history of multiple small PEs in his right ch est 08/2015 9. Insomnia 10. Benign prostatic hypertrophy 11. Varicose veins of left lower limb 12. Acquired lactose intolerance 13. Exposure to combat ALLERGIES: SERTRALINE (November 25, 2012) CITALOPRAM (Aug 31, 2013) RADIOLOGY: radiology obtained by heme/onc was re viewed with the patient. MEDS: All pertinent heme/onc meds reviewed and u pdated with the patient LABS: The following labs were obtained by HemOnc and t he results were reviewed with the patient SLT - Lab Tests Selected Collection DT Specimen Test Name Result Units Re f Range 07/26/2021 11:02 BLOOD WBC 4.47 K/cmm 4.0 - 11.0 07/26/2021 11:02 BLOOD HGB 15.1 g/dL 13.5 - 17.9 07/26/2021 11:02 BLOOD HCT 45.1 % 41 - 54 07/26/2021 11:02 BLOOD MCV 103.7 H fL 80 - 100 07/26/2021 11:02 BLOOD PLT 254 K/cmm 150 - 400 07/26/2021 11:01 BLOOD !! ABS LYMPH 0.95 L K/cmm 1.0 - 4.0 07/26/2021 11:01 BLOOD !! ABS NEUT 2.90 K/cmm 2. 0 - 7.7 CMP (calcium, creatinine, BUN, glucose, electrol ytes, albumin, total bilirubin, alkaline phosphatase, total protein, ALT, AST) Magnesium Serum phosphorus, LDH Any abnormal lab was discussed with patient. ASSESMENT/PLAN: 1. Hereditary Hemorrhagic Telangiectasias - long standing hx of this, mild intermittent bleeding, did drop his hgb in when he was found to have DVT/PE and was started on anticoagulation. His a nticoag was stopped 2017 when his hgb dropped again, it was thought he had been on anticoag long enough from his DVT and the risks associ ated with bleeding from his HHT where higher so his anticoag was stopped and his hgb have remained w ell since. he still gets very occ mucosal bleeding in mouth. He is on oral iro n as well. ferritin 47 and stable. - continue with close surveillance- pt is very familar with his disease and what to look for, he will reach out if new o r different concerns - FU in 6 months Performance Status (ECOG):[address] Limon 30minutes spent on the phone in care and communication, reviewing chart history, reviewing labs and imaging and medications, docu mentaion in EMR Education Patient on Treatment Plan:Patient falguni cates readiness to learn, verbalizes understanding, agreement and satisfaction with the treatment pl an. Denies further questions. /es/ MONICA RODRIGUEZ Physician Optical Glass Inspector Signed: 08/14/2021 11:26
--- OUTSIDE RECORDS SUMMARY | 2022-04-21 11:25 | XMS_ITS | Encounter Summary ---
:1945 Author Organization [facility] rs Address [address] [place] [id number] Support Name Relationship Address Phone LILIANA TERRELL [...] Number Chen BLUELINK COMPREHEN MAXI Jul 28, [id number] [phone] JAZMIN ELAURENCEU PATIENT TPA SIVE E-O [phone] [id number] [phone] L [facility] EXPRESS PRESCRIPT MAXI Jul 28, KEERTHI [id number] [phone] MARIELOS MARCUM PATIENT SCRIPTS - ION E O 2005 [id number] L SUBROGATIO TURKE N Y [employer]MA[employer] MCR MEDICARE MCR Jul 28, [id number] [phone] KLU DELMERMARIELOS PATIENT (WNR) ADVANTAGE (WNR) 2013 1 89 8 L [employer] MCR MEDICARE MCR Jul 28, [id number] [phone] KLU DELMERMARIELOS PATIENT (WNR) ADVANTAGE (WNR) 2014 1 89 0 L [employer] MCR MEDICARE MCR Jul 28, [id number] [phone] KLU DELMERMARIELOS PATIENT (WNR) ADVANTAGE (WNR) 2013 1 89 2 L Selected Encounter This section includes the information on record at [place] for the Encounter. Date/Time Encounter Type Encounter Reason Provider Source Description Jul 26, 2021 OFFICE O/P EST PRIMARY ICD-10-CM I10 EVANS SMALL 10:15 AM LOW 20-29 MIN CARE/MEDICINE Essential SHAR (primary) hypertension with Provider Comments: Hypertensive disorder ([facility] [id number]) IHE Encounter Template Text not used by [place] Assessments - Encounter Diagnoses This section includes the primary and secondary diagnoses documented for the Encounter. 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 This section includes future appointments and future orders which are active, pending orscheduled.Future Appointments This section includes appointments that were scheduled to occur 6 months from the date of the Encounter, up to a maximum of 20 appointments. The data comes from all [place] treatment facilities. Appointment Date/Time Appointment Type Appointment Facili ty Name Aug 10, 2021 03:00 PM AMBULATORY - MEDICINE [facility] Aug 28, 2021 11:00 AM AMBULATORY - PSYCHIATRY [facility] ([facility]) Oct 30, 2021 09:00 AM AMBULATORY - PSYCHIATRY [facility] ([facility]) Oct 30, 2021 10:00 AM [facility]ULATORY - MEDICINE [facility] ([facility]) Jan 01, 2022 02:00 PM AMBULATORY - PS[facility]CHIATRY [facility] ([facility]) Lab Results: +/- 30 days of the encounter This section includes the Chemistry and Hematology Lab Results on record with [place] for the patient. Radiology Reports and Pathology Reports are provided separately, in subsequent sections.Lab Results This section contains the Chemistry/Hematology Results that were resulted 30 days before or 30 daysafter the date of the Encounter. Date/Time Source Result Type Result - Unit Interpretation Reference Range Comment Jul 26, 2021 11:02 AM [facility] ([facility]) IRON GROUP Specimen Type: PLASMA No comment enter ed. Ordering Provid er: EVANS SMALL Report Released Date/Time: Jul 26, 2021 10:58 AM Reporting Lab: [facility] [address] [facility] [address] Performing Lab: [facility] [address] [facility] [address] IRON 101 65-175 TIBC,CALCULATED 200 L 250-425 FERRITIN 56.1 21.8-274.7 IRON SATURATION 51 H 20-50 TRANSFERRIN 160 L [id number] Jul 26, 2021 11:02 [facility] ([facility]) BASIC METABOLIC Specimen Ty pe: PLASMA AM PANEL+MG No comment enter ed. Ordering Provid er: EVANS SMALL Report Released Date/Time: Jul 26, 2021 10:58 AM Reporting Lab: [facility] [address] Performing Lab: [facility] [address] CREATININE 1.1 0.7-1.2 UREA NITROGEN 15 8-26 GLUCOSE 91 74-100 SODIUM 138 136-145 POTASSIUM 4.2 3.5-5.1 CHLORIDE 101 98-107 CO2 28 22-29 CALCIUM 9.7 8.4-10.2 MAGNESIUM 2.0 1.6-2.6 ANION GAP 9 5-15 ESTIMATED GFR(eGFR) 65 >60 Jul 26, 2021 11:02 [facility] ([facility]) LIPID PANEL,NON-FASTING Spe cimen Type: PLASMA AM No comment enter ed. Ordering Provid er: EVANS SMALL Report Released Date/Time: Jul 26, 2021 10:58 AM Reporting Lab: [facility] [address] [facility] [address] Performing Lab: [facility] [address] CHOLESTEROL 140 <199 .HDL 44 >40 LDL CALCULATION 78 <99 VLDL CALCULATION 18 <29 NON HDL CHOLESTEROL 96 <129 TRIG(NON FASTING) 92 <149 Jul 26, 2021 11:02 AM [facility] ([facility]) CBC Specimen Type: BLOOD No comment enter ed. Ordering Provid er: EVANS SMALL Report Released Date/Time: Jul 26, 2021 10:58 AM Reporting Lab: [facility] [address] Performing Lab: [facility] [address] WBC 4.47 4.0-11.0 RBC 4.35 L 4.6-6.2 HGB 15.1 13.5-17.9 HCT 45.1 41-54 MCV 103.7 H 80-100 MCH 34.7 H 27-33 MCHC 33.5 32.0-37.5 PLT 254 150-400 MPV 10.0 7.4-10.4 RDW 13.2 11.5-14.5 Jul 26, 2021 11:01 AM [facility] PSA Specim en Type: SERUM No comment enter ed. Ordering Provid er: IRENE UMANZOR Report Released Date/Time: Feb 28, 2021 05:23 PM Reporting Lab: [facility] [address] Performing Lab: [facility] [address] PSA 0.36 <4.00 Jul 26, 2021 11:01 AM [facility] IRON GROUP Specim en Type: SERUM No comment enter ed. Ordering Provid er: MONICA RODRIGUEZ Report Released Date/Time: Jan 10, 2021 11:21 AM Reporting Lab: [facility] [address] Performing Lab: [facility] [address] IRON 101 65-175 TIBC,CALCULATED 195 L 250-425 FERRITIN 47.4 21.8-274.7 IRON SATURATION 52 H 20-50 TRANSFERRIN 156 L 163-382 Jul 26, 2021 11:01 [facility] BASIC METABOLIC Specimen Type: PLASMA AM PANEL+MG No comment enter ed. Ordering Provid er: MONICA RODRIGUEZ Report Released Date/Time: Jan 10, 2021 11:21 AM Reporting Lab: [facility] [address] Performing Lab: [facility] [address] CREATININE 1.1 0.7-1.2 UREA NITROGEN 14 8-26 GLUCOSE 91 74-100 SODIUM 139 136-145 POTASSIUM 4.2 3.5-5.1 CHLORIDE 103 98-107 CO2 28 22-29 CALCIUM 9.6 8.4-10.2 MAGNESIUM 2.1 1.6-2.6 ANION GAP 8 5-15 ESTIMATED GFR(eGFR) 65 >60 Jul 26, 2021 11:01 AM [facility] CBC & DIFF Specim en Type: BLOOD Comment: Automa armand Differential Performed Ordering Provid er: MONICA RODRIGUEZ Report Released Date/Time: Jan 10, 2021 11:21 AM Reporting Lab: [facility] [address] [facility] [address] Performing Lab: [facility] [address] [facility] [address] WBC 4.41 4.0-11.0 RBC 4.36 L 4.6-6.2 [...] IG(META,MYELO,PRO) 0.2 ABS IMMATURE GRAN 0.01 0-0.1 Vital Signs: All taken on the encounter date This section contains inpatient and outpatient Vital Signs collected on the date of the Encounter. Date/Time Temperature Pulse Blood Respiratory SP02 Pain Height Weight Guero dy Source Pressure Rate Mass Index Jul 26, 97.1 F 58 136/72 18 /min 98 % 0 68.75 173.9 26 [facility] 2020 10:25 /min mm[Hg] in lb ER AM ([facility]) Social History: Smoking Status (Most current) and Tobacco Use (All prior to encounter date) This section includes the most current, and the historical, smoking and tobacco-related health factors from the [place] facility where the Encounter took place.Current Smoking Status This section includes the most current smoking, or tobacco-related health factor, from the [place] facility where the Encounter took place. Date/Time Current Smoking Status Comment Facility Jul 26, 2021 10:15 AM [place]-TOBACCO QUIT 15 YRS OR MORE [facility] ([facility]) Tobacco Use History This section includes a history of the smoking, or tobacco- related health factors, that were collected on or before the date of the Encounter. The data comes from the [place] facility where the Encounter took place. Date/Time Smoking Status/Tobacco Use Comment [facility] Jul 26, 2021 10:15 AM [facility]-TOBACCO QUIT 15 YRS OR MORE [facility] ([facility]) Jul 18, 2020 01:45 PM VA-TOBACCO FORMER USER [facility] ([facility]) Jul 18, 2020 01:45 PM VA-TOBACCO QUIT 15 YRS OR MORE [facility] ([facility]) Oct 20, 2018 09:43 AM VA-TOBACCO FORMER USER [facility] ([facility]) Oct 20, 2018 09:43 AM VA-TOBACCO QUIT 15 YRS OR MORE [facility] ([facility]) Aug 29, 2017 10:26 AM FORMER TOBACCO USER 7Y OR GREATER [facility] ([facility]) Mar 18, 2016 10:08 AM FORMER TOBACCO USER 7Y OR GREATER [facility] ([facility]) Jun 06, 2015 12:30 PM FORMER TOBACCO USER 7Y OR GREATER [facility] ([facility]) Apr 08, 2014 09:02 AM FORMER TOBACCO USER 7Y OR GREATER [facility] ([facility]) Advance Directives: All historical and current Section Date Range: From patient's date of to the date document was created. This section includes ALL of a patient's completed or amended [place] Advance and Rescinded Directives. The entries below indicate that a directive exists for the patient, but an actual copy is not included with this document. The data comes from all [place] facilities. Date Advance Directives Provider Source Mar 12, 2019 ADVANCE DIRECTIVE KIARA BRANDT [facility] Mar 12, 2019 ADVANCE DIRECTIVE DISCUSSION KIARA BRANDT [facility] Encounter Notes: All associated encounter notes This section contains the clinical notes associated to the Encounter. Date/Time Encounter Note(s) Provider Source Jul 26, 2021 12:25 PM H & P NOTE: EVANS SMALL ([facility]) LOCAL TITLE: [facility] ANNUAL VISIT SHAR STANDARD TITLE: H & P NOTE DATE OF NOTE: JUL 26, 2021@12:25 ENTRY DATE: JUL 26, 2021@12:25:06 AUTHOR: EVANS SMALL EXP COSIGNER: URGENCY: STATUS: COMPLETED Type of Visit:Juan Marcum is here for his annual exam. He continues to have nose bleeds and blood in mouth. I t has been worse recently, so would like hgb tested. He is not comanaged. Reason for Visit: HPI: 76 years old MALE here for: Past Medical History: Active problems - Computerized Problem List is t he source for the followin. 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 Erectile dysfunction (SNOMED CT 790882975) 4. Ocular migraine 5. Iron deficiency anemia due to chronic blood loss 6. History of deep vein thrombosis - LLE 08/2015 7. Irritable bowel syndrome with diarrhea 8. Pulmonary embolism - history of multiple small PEs in his right ch est 08/2015 9. Insomnia 10. Benign prostatic hypertrophy 11. Varicose veins of left lower limb 12. Acquired lactose intolerance 13. Exposure to combat PAST SURGICAL HISTORY: 1. Gallbladder removal. 2. Umbilical hernia surgery. SOCIAL HISTORY: He is . He lives in [place]. He quit smoking on 05/15/1983. He drinks 2-3 drinks before dinner, He does not use any illegal drugs. 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 He continues to walk several miles per day. Family History:his father and sister had heredit sushila hemorrhagic telangiectasis;father had st [facility] in his 50s. His mother had atrial fibrillation and had stroke at age 90 Review of Systems: HEENT-negative Respiratory-negative Cardiac-negative Musculoskeletal-negative Neurologic-notes slight tremor of hands Psychiatric-negative Physical Exam: Temp: 97.1 F [36.2 C] (07/26/2021 10:25) Pulse:58 (07/26/2021 10:25) BP: 136/72 (07/26/2021 10:25) Resp: 18 (07/26/2021 10:25) Weight: 173.9 lb [79.0 kg] (07/26/2021 10:25) Pain: 0 (07/26/2021 10:25) O2 Sat: 98 (07/26/2021 10:25) BMI: 25.9 General: AAOx3, NAD HEENT: PERRL, EOMI, no scleral icterus, neck sup ple, Multiple telangiectasias of tongue, mouth nose, some on face. CV: S1, S2, RRR, no m/r/g Lungs: CTAB, no crackles, no wheezing Abd: soft, NT/ND, +BS, no rebound, no guarding Extrem: no c/c/has trace khanh ma, stasisi dermatitis of both shins, with varicose veins. Neuro: alert, gait normal. D TR's 1-2+ symmetric. Has minimal tremor both hands. Labs: - Complete Blood Count (red/white blood cell cou nts and platelets) White count: WBC 4.63 (01/10/21) (normal is 4.0 -11.0) Hemoglobin: HGB 14.7 (01/10/21) (normal Male is 13.5-17.9) (normal Female is 11.5-16) Hematocrit: HCT 43.3 (01/10/21) (normal Male is 41-54) (normal Female is 34.5-48) Platelets: PLT 222 (01/10/21) (normal is 150-40 0) - Electrolytes including sodium and potassium SODIUM 139 (01/10/21) (normal is 136-145) POTASSIUM 3.9 (01/10/21) (normal is 3.5-5.0) CHLORIDE 106 (01/10/21) (normal is 98-107) CO2 28 (01/10/21) (normal is 21-32) UREA NITROGEN 13 (01/10/21) (normal Male is 8-2 6) (normal Female = 10-20) CREATININE 1.0 (01/10/21) (normal Male is 0.7-1 .2) (normal Female is 0.5-1.0) GLUCOSE 97 (01/10/21) (normal is 70-100) CALCIUM 9.7 (01/10/21) (normal is 8.5-10.1) ESTIMATED GFR(eGFR) >60 (01/10/21)(normal is >/ =60) - Liver function Tests AST/SGOT 19 (01/10/21) (normal is 15-37) ALT/SGPT 14 (01/10/21) (normal is 13-61) BILIRUBIN, TOTAL 1.6 H (01/10/21) (normal is 0. 2-1.0) Essential Medication List - reviewed with [place] t/Caregiver FACILITY ALLERGY/ADR -------- [facility] CITALOPRAM [facility] NO KNOWN ALLERGI ES Active Medications: + -+--------+--------+--------+--------+ Medication (Local) New Med Old Dose New Dose Discontd + -+--------+--------+--------+--------+ CARBOXYMETHYLCELLULOSE NA 0.25% OPH SOLN Directions: INSTILL 1 DROP IN BOTH EYES TWICE A DAY FOR DRY EYES Expires: 12/09/21 Status: ACTIVE + -+--------+--------+--------+--------+ FERROUS SULFATE 325MG TAB Directions: TAKE ONE TABLET BY MOUTH TWO TIMES A DAY FOR IRON DEFICINECY ANEMIA Expires: 12/15/21 Status: ACTIVE + -+--------+--------+--------+--------+ FINASTERIDE 5MG TAB Directions: TAKE ONE TABLET BY MOUTH EVERY DAY FOR PROSTATE Expires: 03/01/22 Status: ACTIVE + -+--------+--------+--------+--------+ HYDROCHLOROTHIAZIDE 25MG TAB Directions: TAKE ONE TABLET BY MOUTH EVERY DAY Expires: 01/26/22 Status: ACTIVE + -+--------+--------+--------+--------+ Pending Medications: + -+--------+--------+--------+--------+ Medication (Local) New Med Old Dose New Dose Discontd + -+--------+--------+--------+--------+ TAMSULOSIN HCL 0.4MG CAP Directions: TAKE TWO CAPSULES BY MOUTH EVERY DAY FOR PROSTATE, FOR BLADDER EMPTYING Quantity: 180 Status: PENDING + -+--------+--------+--------+--------+ Medications (Past 90 days): + -+--------+--------+--------+--------+ Medication (Local) New Med Old Dose New Dose Discontd + -+--------+--------+--------+--------+ TAMSULOSIN HCL 0.4MG CAP X Directions: TAKE TWO CAPSULES BY MOUTH EVERY DAY FOR PROSTATE, FOR BLADDER EMPTYING Expires: 07/19/21 Status: + -+--------+--------+--------+--------+ Non-VA Medications: + -+--------+--------+--------+--------+ Medication (Local) New Med Old Dose New Dose Discontd + -+--------+--------+--------+--------+ CHOLECALCIF 25MCG (D3-1,000UNIT) TAB Directions: 1000UNIT MOUTH EVERY DAY Status: ACTIVE + -+--------+--------+--------+--------+ NON VA MED NOT LISTED MISCELLANEOUS Directions: CALCIUM 1000 MG/PHOSPHORUS 500 MG/MAGNESIUM 500 MG - 1 TABLET EVERY DAY Status: ACTIVE + -+--------+--------+--------+--------+ Assessment/Plan: 1. 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 Benign prostatic enlargement-reports some imp rovement with addition of finasteride. 3. Health maintenance/prevention-he had colonosc opy in 2016 which showed no polyps. I don't think he needs another colonosco py until 2025. Up to date on vaccines. 4. hypertension-controlled. - Vaccinations: IM - Immunizations Immunization Series Date Facility Reaction Info COVID-19 ([facility] MRNA, LNP-S, P* 3 04/26/2021 [place]* <C> 2 09/09/2020 [facility] * <C> 1 08/19/2020 [facility] * <C> INFLUENZA, HIGH DOSE SEASONAL 07/30/2017 [facility] * 06/27/2016 [facility] * 06/06/2015 [facility] * INFLUENZA, INJECTABLE, QUADRIVALE* 04/26/2021 [place]* 05/11/2020 [facility] * INFLUENZA, SEASONAL, INJECTABLE,* 04/13/2019 [place]* 05/21/2018 [facility] * INFLUENZA, UNSPECIFIED FORMULATIO* 08/31/2013 [facility] * PNEUMOCOCCAL CONJUGATE PCV 13 06/06/2015 [facility] * <C> PNEUMOCOCCAL, UNSPECIFIED FORMULA* 08/31/2013 [facility] * <C> TDAP 02/25/2013 [facility]* <C> ZOSTER LIVE 08/31/2013 [facility] * <C> ZOSTER RECOMBINANT 2 11/23/2019 [facility] * 1 07/15/2019 [facility] * <C> See the Detailed Immunizations Health Summar y Component[DIM] for Comments RTC in 1 year. Clinical Reminders: /catia/ EVANS SMALL [facility] physician Signed: 07/26/2021 12:45 Jul 26, 2021 10:28 AM ADVANCE DIRECTIVE: ROVERTO WOODS ([facility]) LOCAL TITLE: AD NOTIFICATION AND SCREENING STANDARD TITLE: ADVANCE DIRECTIVE DATE OF NOTE: JUL 26, 2021@10:28 ENTRY DATE: JUL 26, 2021@10:28:32 AUTHOR: ROVERTO WOODS EXP COSIGNER: URGENCY: STATUS: COMPLETED ADVANCE DIRECTIVE NOTIFICATION: Patient was given written notification of the f ollowing rights: 1. Accept or refuse any medical treatment. 2. Complete a durable power of senior technical program manager for [facility] care. 3. Complete a living will. ADVANCE DIRECTIVE SCREENING: Does patient have an Advance Directive? The patient has an Advance Directive. Does the patient wish to make any changes or re voke their current Advance Directive? No changes requested at this time. /catia/ ROVERTO WOODS LPN LPN [facility] Signed: 07/26/2021 10:28 Jul 26, 2021 10:25 AM PRIMARY CARE NURSING NOTE: ROVERTO WOODS (CB) LOCAL TITLE: [facility] NURSING PROGRESS NOTE STANDARD TITLE: PRIMARY CARE NURSING NOTE DATE OF NOTE: JUL 26, 2021@10:25 ENTRY DATE: JUL 26, 2021@10:25:57 AUTHOR: ROVERTO WOODS EXP COSIGNER: URGENCY: STATUS: COMPLETED TYPE OF VISIT: Appointment Check In Type of appointment: In-person appointment REASON FOR VISIT: Annual exam, [facility] is PCP ALLERGIES: SERTRALINE (November 25, 2012) CITALOPRAM (Aug 31, 2013) VITAL SIGNS: Blood Pressure: 136/72 (07/26/2021 10:25) Pulse: 58 (07/26/2021 10:25) Respiration: 18 (07/26/2021 10:25) Temperature: 97.1 F [36.2 C] (07/26/2021 10:25) Weight: 173.9 lb [79.0 kg] (07/26/2021 10:25) Height: 68.75 in [174.6 cm] (07/26/2021 10:25) BMI: 25.9 O2 Sat: 98 (07/26/2021 10:25) Pain: 0 (07/26/2021 10:25) PAIN SCREEN: Patient is not having significant pain that the y wish to discuss with their provider today. Depression Screening: Perform PHQ-2 A PHQ-2 screen was performed. The score was 0 w hich is a negative screen for depression. Over the past two weeks, how often have you bee n bothered by the following problems? 1. Little interest or pleasure in doing things Not at all 2. Feeling down, depressed, or hopeless Not at all Alcohol Use Screen (AUDIT-C): Alcohol Screen: SCREEN FOR ALCOHOL (AUDIT-C) An alcohol screening test (AUDIT-C) was negativ e (score=4). 1. How often did you have a drink containing al cohol in the past year? Four or more times a week 2. How many drinks containing alcohol did you h ave on a typical day when you were drinking in the past year? One or two drinks 3. How often did you have six or more drinks on one occasion in the past year? Never Tobacco Use Screening: The patient is a former tobacco user. The patient quit fifteen or more years ago. Nursing Annual Screening: Fall History Screen During the past 12 months, have you had any fal ls? Patient does not report any falls in the past 1 2 months. MEDICATIONS: Patient is on one of the following medication c lasses: Antihypertensives, Antidepressants, Antipsychot ics, Diuretics, or Controlled substance medication used for pain. FALL RISK ADVICE: Fall Risk Advice provided. Handout entitled Fa ll Prevention At Home reviewed and given to patient and/or significan t other. Script Talk Screen Are you able to read your prescription bottles with your glasses, magnifiers or other aids? Yes or patient not taking any prescriptions. Skin Screen Patient reports any current pressure ulcers, a history of pressure ulcers, or a wound from a medical coordinator pesticide use or Patient is bed-confined or a wheelchair-user or Patient requires assistance to transfer/change position No, Skin Screen is Negative Home Abuse/Violence Screen Is your home free of abuse and violence? Yes Outpatient Nutrition Screen Body Mass Index (BMI)= 25.9 [place]: Collection DT Specimen Test Name Result Units R ef Range 10/27/2017 10:23 BLOOD !! HEMOGLOBIN A1C 5.1 % 4.0 - 6.0 !! Indicates COMMENTS AVAILABLE...Refer to Inte [facility] Lab Report. [place] Hgb A1C: No data available [place] Hgb A1C: No data available Point of Care Hgb A1C: POC HGB A1C____ Is patient's BMI less than 18.5? No Does patient have swallowing, coughing, or chew ing problems affecting oral intake? No Has patient experienced unplanned weight loss o r gain greater than 10 pounds over the last 2 months? No Is patient's Hgb A1C (Glycosylated Hemoglobin) greater than 9.5? No Is patient receiving Total Parenteral Nutrition (TPN) or Tube Feedings? No Patient Health Education Screen BARRIERS/SPECIAL NEEDS: No barriers identified PREFERRED STYLE OF LEARNING: No preference stated Client Assistive Service (SAMARA) Screen Does the patient require assistance with outpat ient visit? No /catia/ ROVERTO WOODS LPN LPN [facility] Signed: 07/26/2021 10:28
--- OUTSIDE RECORDS SUMMARY | 2022-04-21 11:25 | XMS_ITS | Encounter Summary ---
:1945 Author Organization [facility] Address [address] [place] [id number] Support Name Relationship Address Phone LILIANA TERRELL [...] Number Chen BLUELINK COMPREHEN MAXI Jul 28, [id number] [phone] JAZMIN LAURENCE LomeliU PATIENT TPA SIVE E-O 2005 [id number] L MAJOR [facility] EXPRESS PRESCRIPT MAXI Jul 28, KEERTHI [id number] [phone] MARIELOS IBARRA PATIENT SCRIPTS - ION E O 2005 [id number] L SUBROGATIO TURKE N Y [employer] MCR MEDICARE MCR Jul 28, [id number] [phone] KLU DELMERMARIELOS PATIENT (WNR) ADVANTAGE (WNR) 2013 1 89 8 L [employer] MCR MEDICARE MCR Jul 28, [id number] [phone] KLU DELMERMARIELOS PATIENT (WNR) ADVANTAGE (WNR) 2013 1 89 0 L [employer] MCR MEDICARE MCR Jul 28, [id number] [phone] KLU DELMERMARIELOS PATIENT (WNR) ADVANTAGE (WNR) 2013 1 89 2 L Selected Encounter This section includes the information on record at [place] for the Encounter. Date/Time Encounter Type Encounter Reason Provider Source Description Aug 28, 2021 PSYTX W PT 45 MENTAL HEALTH ICD-10-CM F41.9 NINA TRIPP DEVAN 11:00 AM MINUTES CLINIC - IND Anxiety disorder, NE E unspecified with Provider Comments: Exposure to combat ([facility] [id number]) IHE Encounter Template Text not used by [place] Assessments - Encounter Diagnoses This section includes the primary and secondary diagnoses documented for the Encounter. Date/Time Primary/Secondary Diagnosis Name Provider Source Diagnosis Aug 28, 2021 PRIMARY Anxiety disorder, TEJAS TRIPP R 12:49 PM unspecified NE E (CB) Plan of Treatment: Future Appointments (+ 6 months) and Future Tests (+/- 45 days) The Plan of Treatment section includes future care activities for the patient from all [place] [facility]. This section includes future appointments and future orders which are active, pending orscheduled.Future Appointments This section includes appointments that were scheduled to occur 6 months from the date of the Encounter, up to a maximum of 20 appointments. The data comes from all [place] treatment facilities. Appointment Date/Time Appointment Type Appointment Facili ty Name Oct 30, 2021 09:00 AM AMBULATORY - PS[place]IATRY [place] ([facility]) Oct 30, 2021 10:00 AM AMBULATORY - [place]ICINE [place] ([facility]) Jan 01, 2022 02:00 PM AMBULATORY - PS[place]CHIATRY [place] ([facility]) Feb 15, 2022 10:15 AM AMBULATORY - NONE [place] ([facility]) Feb 15, 2022 12:43 PM AMBULATORY - NONE [facility] Feb 22, 2022 02:30 PM AMBULATORY - MEDICINE [facility] CS Social History: Smoking Status (Most current) and Tobacco Use (All prior to encounter date) This section includes the most current, and the historical, smoking and tobacco-related health factors from the [place] facility where the Encounter took place.Current Smoking Status This section includes the most current smoking, or tobacco-related health factor, from the [place] facility where the Encounter took place. Date/Time Current Smoking Status Comment Facility Jul 26, 2021 10:15 AM CO-TOBACCO FORMER USER [facility] ([facility]) Tobacco Use History This section includes a history of the smoking, or tobacco- related health factors, that were collected on or before the date of the Encounter. The data comes from the [place] facility where the Encounter took place. Date/Time Smoking Status/Tobacco Use Comment [facility] Jul 26, 2021 10:15 AM CO-TOBACCO QUIT 15 YRS OR MORE [place] ([facility]) Jul 18, 2020 01:45 PM VA-TOBACCO FORMER USER [facility] ([facility]) Jul 18, 2020 01:45 PM VA-TOBACCO QUIT 15 YRS OR MORE [place] ([facility]) Oct 20, 2018 09:43 AM VA-TOBACCO FORMER USER [facility] ([facility]) Oct 20, 2018 09:43 AM VA-TOBACCO QUIT 15 YRS OR MORE [place] ([facility]) Aug 29, 2017 10:26 AM FORMER TOBACCO USER 7Y OR GREATER [place] ([facility]) Mar 18, 2016 10:08 AM FORMER TOBACCO USER 7Y OR GREATER [place] ([facility]) Jun 06, 2015 12:30 PM FORMER TOBACCO USER 7Y OR GREATER [place] ([facility]) Apr 08, 2014 09:02 AM FORMER TOBACCO USER 7Y OR GREATER [place] ([facility]) Advance Directives: All historical and current Section Date Range: From patient's date of to the date document was created. This section includes ALL of a patient's completed or amended [place] Advance and Rescinded Directives. The entries below indicate that a directive exists for the patient, but an actual copy is not included with this document. The data comes from all [place] facilities. Date Advance Directives Provider Source Mar 12, 2019 ADVANCE DIRECTIVE KIARA BRANDT [facility] Mar 12, 2019 ADVANCE DIRECTIVE DISCUSSION KIARA BRANDT [facility] Encounter Notes: All associated encounter notes This section contains the clinical notes associated to the Encounter. Date/Time Encounter Note(s) Provider Source Aug 28, 2021 11:00 AM MENTAL HEALTH NOTE: BRYAN TRIPP ([facility]) LOCAL TITLE: MH PROGRESS NOTE STANDARD TITLE: MENTAL HEALTH NOTE DATE OF NOTE: AUG 28, 2021@11:00 ENTRY DATE: AUG 28, 2021@12:44:12 AUTHOR: BRYAN TRIPP EXP COSIGNER: URGENCY: STATUS: COMPLETED Individual Psychotherapy: 52 minutes vvc S/O - Patient on time for session. Overall doing well, though noted a panic attack (triggered, feeling trapped). Discussed h ow he responded, additional skills he could be using to 1. view the symptoms a different way, 2. view the trigger a different way, and 3. notice the value s directed actions that placed him at that situation (and consider the p anic a tax on that decision). Overall, patient acknowledges psychol ogical and behavioral flexibility in various domains of his life (rela tionships, spirituality, creativity, intellectual pursuits. Commended ronnie tan on this and we reflected on his journey to this point where he can chuckle at things that used to get under his skin and create a lot of d istress. Handouts: none today Problem for which patient treated today: Exposure to combat ([facility] [id number]) - Anxiety dis order, unspecified (ICD-10-CM F41.9) [...] Continue individua l psychotherapy, f/u in early October /catia/ BRYAN TRIPP, PHD, LP PSYCHOLOGIST Signed: 08/28/2021 12:49
--- OUTSIDE RECORDS SUMMARY | 2022-04-21 11:26 | XMS_ITS | Encounter Summary ---
:1945 Author Organization [facility] Address [address] [place] [address] Support Name Relationship Address Phone TERRELL FORD Unavailable Unavailable UCHE THORNTON TERRLEL FORD Unavailable Unavailable UCHE THORNTON Insurance Providers: [...] Number Chen BLUELINK COMPREHEN MAXI Jul 28, [id number] [phone] JAZMIN ELAURENCEU PATIENT TPA SIVE E-O 2006 0 [id number] L [facility]OR [facility] EXPRESS PRESCRIPT MAXI Jul 28, KEERTHI [id number] [phone] MARIELOS IBARRA PATIENT SCRIPTS - ION E O 2005 [id number] L SUBROGATIO TURKE N Y [employer] MCR MEDICARE MCR Jul 28, [id number] [phone] KLU DELMERMARIELOS PATIENT (WNR) ADVANTAGE (WNR) 2013 1 89 8 L [employer] MCR MEDICARE MCR Jul 28, [id number] [phone] KLU DELMERMARIELOS PATIENT (WNR) ADVANTAGE (WNR) 2013 1 89 0 L [employer] MCR MEDICARE MCR Jul 28, [id number] [phone] KLU DELMERMARIELOS PATIENT (WNR) ADVANTAGE (WNR) 2013 1 89 2 L Selected Encounter This section includes the information on record at [place] for the Encounter. Date/Time Encounter Type Encounter Description Reason Provider Source Jul 19, 2021 03:35 Outpatient Encounter PRIMARY CARE/MEDICINE PM IHE Encounter Template Text not used by [place] Plan of Treatment: Future Appointments (+ 6 months) and Future Tests (+/- 45 days) The Plan of Treatment section includes future care activities for the patient from all [place] treatmentfacilities. This section includes future appointments and future orders which are active, pending orscheduled.Future Appointments This section includes appointments that were scheduled to occur 6 months from the date of the Encounter, up to a maximum of 20 appointments. The data comes from all [place] treatment facilities. Appointment Date/Time Appointment Type Appointment Facili ty Name Jul 26, 2021 10:15 AM AMBULATORY - MEDICINE [place] ([facility]) Jul 26, 2021 10:45 AM AMBULATORY - NONE [place] ([facility]) Aug 10, 2021 03:00 PM AMBULATORY - MEDICINE [facility] Aug 28, 2021 11:00 AM AMBULATORY - PS[place]CHIATRY [place] ([facility]) Oct 30, 2021 09:00 AM AMBUL[place]ORY [place]RY [place] ([facility]) Oct 30, 2021 10:00 AM AMBULATORY - MEDICINE [place] ([facility]) Jan 01, 2022 02:00 PM AMBULATORY - [place]IATRY [place] ([facility]) Lab Results: +/- 30 days of the encounter This section includes the Chemistry and Hematology Lab Results on record with [place] for the patient. Radiology Reports and Pathology Reports are provided separately, in subsequent sections.Lab Results This section contains the Chemistry/Hematology Results that were resulted 30 days before or 30 daysafter the date of the Encounter. Date/Time Source Result Type Result - Unit Interpretation Reference Range Comment Jul 26, 2021 11:02 AM [place] ([facility]) IRON GROUP Specimen Type: PLASMA No comment enter ed. Ordering Provid er: EVANS AGUILAR Report Released Date/Time: Jul 26, 2021 10:58 AM Reporting Lab: [facility] [address] [facility] [id number] Performing Lab: [facility] [address] [facility] [address] IRON 101 65-175 TIBC,CALCULATED 200 L 250-425 FERRITIN 56.1 21.8-274.7 IRON SATURATION 51 H 20-50 TRANSFERRIN 160 L 163-382 Jul 26, 2021 11:02 [place] ([facility]) BASIC METABOLIC Specimen Ty pe: PLASMA AM PANEL+MG No comment enter ed. Ordering Provid er: EVANS AGUILAR Report Released Date/Time: Jul 26, 2021 10:58 AM Reporting Lab: [facility] [address] [facility] [address] Performing Lab: [facility] [address] [facility] [address] CREATININE 1.1 0.7-1.2 UREA NITROGEN 15 8-26 GLUCOSE 91 74-100 SODIUM 138 136-145 POTASSIUM 4.2 3.5-5.1 CHLORIDE 101 98-107 CO2 28 22-29 CALCIUM 9.7 8.4-10.2 MAGNESIUM 2.0 1.6-2.6 ANION GAP 9 5-15 ESTIMATED GFR(eGFR) 65 >60 Jul 26, 2021 11:02 [place] ([facility]) LIPID PANEL,NON-FASTING Spe cimen Type: PLASMA AM No comment enter ed. Ordering Provid er: EVANS AGUILAR Report Released Date/Time: Jul 26, 2021 10:58 AM Reporting Lab: [facility] [address] [facility] [address] Performing Lab: [facility] [address] CHOLESTEROL 140 <199 .HDL 44 >40 LDL CALCULATION 78 <99 VLDL CALCULATION 18 <29 NON HDL CHOLESTEROL 96 <129 TRIG(NON FASTING) 92 <149 Jul 26, 2021 11:02 AM [place] ([facility]) CBC Specimen Type: BLOOD No comment enter ed. Ordering Provid er: EVANS AGUILAR Report Released Date/Time: Jul 26, 2021 10:58 AM Reporting Lab: [facility] [address] [facility] [address] Performing Lab: [facility] [address] WBC 4.47 4.0-11.0 RBC 4.35 L 4.6-6.2 HGB 15.1 13.5-17.9 HCT 45.1 41-54 MCV 103.7 H 80-100 MCH 34.7 H 27-33 MCHC 33.5 32.0-37.5 PLT 254 150-400 MPV 10.0 7.4-10.4 RDW 13.2 11.5-14.5 Jul 26, 2021 11:01 AM [facility] PSA Specim en Type: SERUM No comment enter ed. Ordering Provid er: IRENE UMANZOR Report Released Date/Time: Feb 28, 2021 05:23 PM Reporting Lab: [facility] [address] Performing Lab: [facility] [address] [facility] [address] PSA 0.36 <4.00 Jul 26, 2021 11:01 AM [facility] IRON GROUP Specim en Type: SERUM No comment enter ed. Ordering Provid er: MONICA RODRIGUEZ Report Released Date/Time: Jan 10, 2021 11:21 AM Reporting Lab: [facility] [address] [facility] [address] Performing Lab: [facility] [address] [facility] [address] IRON 101 65-175 TIBC,CALCULATED 195 L 250-425 FERRITIN 47.4 21.8-274.7 IRON SATURATION 52 H 20-50 TRANSFERRIN 156 L 163-382 Jul 26, 2021 11:01 [facility] BASIC METABOLIC Specimen Type: PLASMA AM PANEL+MG No comment enter ed. Ordering Provid er: MONICA RODRIGUEZ Report Released Date/Time: Jan 10, 2021 11:21 AM Reporting Lab: [facility] [address] Performing Lab: [facility] [address] CREATININE 1.1 0.7-1.2 UREA NITROGEN 14 8-26 GLUCOSE 91 74-100 SODIUM 139 136-145 POTASSIUM 4.2 3.5-5.1 CHLORIDE 103 98-107 CO2 28 22-29 CALCIUM 9.6 8.4-10.2 MAGNESIUM 2.1 1.6-2.6 ANION GAP 8 5-15 ESTIMATED GFR(eGFR) 65 >60 Jul 26, 2021 11:01 AM [facility] CBC & DIFF Specim en Type: BLOOD Comment: Automa armand Differential Performed Ordering Provid er: MONICA RODRIGUEZ Report Released Date/Time: Jan 10, 2021 11:21 AM Reporting Lab: [facility] [address] [facility] [address] Performing Lab: [facility] [address] [facility] [address] WBC 4.41 4.0-11.0 RBC 4.36 L 4.6-6.2 [...] ALL of a patient's completed or amended [place] Advance and Rescinded Directives. The entries below indicate that a directive exists for the patient, but an actual copy is not included with this document. The data comes from all [place] facilities. Date Advance Directives Provider Source Mar 12, 2019 ADVANCE DIRECTIVE KIARA BRANDT [facility] Mar 12, 2019 ADVANCE DIRECTIVE DISCUSSION KIARA BRANDT [facility] Encounter Notes: All associated encounter notes This section contains the clinical notes associated to the Encounter. Date/Time Encounter Note(s) Provider Source Jul 19, 2021 03:35 PM REPORT OF CONTACT: CAITLIN CHILEL (CB) LOCAL TITLE: APPOINTMENT SCHEDULING NOTE STANDARD TITLE: REPORT OF CONTACT DATE OF NOTE: JUL 19, 2021@15:35 ENTRY DATE: JUL 19, 2021@15:35:47 AUTHOR: CAITLIN CHILEL EXP COSIGNER: URGENCY: STATUS: COMPLETED APPOINTMENT SCHEDULING NOTE Has ADDENDA Please contact pt to relay h e should report to clinic at 1000 for his [address] Aguilar on 07/26; joanna bs will be addressed at visit and drawn AFTER appt. /catia/ Caitlin Chilel, RN, CWCN Registered Nurse Signed: 07/19/2021 15:36 Receipt Acknowledged By: 07/19/2021 15:44 /catia/ PRAVEEN AMOR [place], [place] [facility] for LOU HURTZAC MUNGUIA 07/19/2021 ADDENDUM STATUS: COMPLETED Made contact with and informed him to co me at 1000 for his 1015 appointment and his labs will be done after PCP appointment. is agreeable. Thank you, /catia/ PRAVEEN AMOR [place], [place] [facility] Signed: 07/19/2021 15:45
--- OUTSIDE RECORDS SUMMARY | 2022-04-21 11:26 | XMS_ITS | Encounter Summary ---
:1945 Author Organization [facility] Address [address] [place] [address] Support Name Relationship Address Phone TERRELL FORD Unavailable Unavailable UCHE THORNTON LILIANA TERRELL Unavailable Unavailable UCHE THORNTON Insurance Providers: All [...] Number Chen BLUELINK COMPREHEN MAXI Jul 28, [id number] [phone] JAZMIN ELAURENCEU PATIENT TPA SIVE E-O 2006 0 [id number] L MA[facility]OR [facility] STOR EXPRESS PRESCRIPT MAXI Jul 28, KEERTHI [id number] [phone] MARIELOS IBARRA PATIENT SCRIPTS - ION E O 2005 [id number] [id number] L SUBROGATIO TURKE N Y [employer] MCR MEDICARE MCR Jul 28, [id number] [phone] KLU DELMERMARIELOS PATIENT (WNR) ADVANTAGE (WNR) 2013 1 89 8 L [employer] MCR MEDICARE MCR Jul 28, [id number] KLU DELMERMARIELOS PATIENT (WNR) ADVANTAGE (WNR) 2013 1 89 0 L [employer] MCR MEDICARE MCR Jul 28, [id number] [phone] KLU DELMERMARIELOS PATIENT (WNR) ADVANTAGE (WNR) 2013 1 89 2 L Selected Encounter This section includes the information on record at [place] for the Encounter. Date/Time Encounter Type Encounter Description Reason Provider Source May 17, 2021 12:19 Outpatient Encounter ONCOLOGY/TUMOR PM IHE Encounter Template Text not used by [place] Plan of Treatment: Future Appointments (+ 6 months) and Future Tests (+/- 45 days) The Plan of Treatment section includes future care activities for the patient from all [place] [facility]. This section includes future appointments and future orders which are active, pending orscheduled.Future Appointments This section includes appointments that were scheduled to occur 6 months from the date of the Encounter, up to a maximum of 20 appointments. The data comes from all [place] treatment facilities. Appointment Date/Time Appointment Type Appointment Facili ty Name May 19, 2021 10:45 AM AMBULATORY - SURGERY [facility] S May 31, 2021 10:00 AM AMBULATORY - PSYCHIATRY [facility] Jul 05, 2021 10:00 AM AMBULATORY PSYCHIATRY [facility] Jul 26, 2021 10:15 AM AMBULATORY - MEDICINE [place] ([facility]) Jul 26, 2021 10:45 AM AMBULATORY - NONE [place] ([facility]) Aug 10, 2021 03:00 PM AMBULATORY - MEDICINE [facility] Aug 28, 2021 11:00 AM AMBULATORY - PSYCHIATRY [place] ([facility]) Oct 30, 2021 09:00 AM AMBULATORY - PSYCHIATRY [place] ([facility]) Oct 30, 2021 10:00 AM AMBULATORY - MEDICINE [place] ([facility]) Advance Directives: All historical and current Section Date Range: From patient's date of to the date document was created. This section includes ALL of a patient's completed or amended [place] Advance and Rescinded Directives. The entries below indicate that a directive exists for the patient, but an actual copy is not included with this document. The data comes from all [facility]. Date Advance Directives Provider Source Mar 12, 2019 ADVANCE DIRECTIVE KIARA BRANDT [facility] Mar 12, 2019 ADVANCE DIRECTIVE DISCUSSION KIARA BRANDT [facility] Encounter Notes: All associated encounter notes This section contains the clinical notes associated to the Encounter. Date/Time Encounter Note(s) Provider Source May 17, 2021 12:19 PM REPORT OF CONTACT: KATLIN GRANADO [facility] LOCAL TITLE: APPOINTMENT SCHEDULING NOTE STANDARD TITLE: REPORT OF CONTACT DATE OF NOTE: MAY 17, 2021@12:19 ENTRY DATE: MAY 17, 2021@12:19:30 AUTHOR: KATLIN GRANADO EXP COSIGNER: URGENCY: STATUS: COMPLETED Attempt to schedule return to clinic 1st Contact: Called Tovey at: O ct Left message Phone number left for to call back: If calls back, schedule appointment for : 01/10/2021 11:19 New Order entered by RAMAKRISHNA RODRIGUEZ (PHYSICIAN [place]) Order Text: Return to [facility] ANITRA Campbell on or around ( Jul 12, 2021 ) for a total of 1 appointment(s) Prerequisites: Labs (NON-FASTING) [id number] labs week prior /catia/ KATLIN GRANADO [facility] Signed: 05/17/2021 12:20
--- OUTSIDE RECORDS SUMMARY | 2022-04-21 11:26 | XMS_ITS | Encounter Summary ---
:1945 Author Organization [facility] Address [address] [place] [id number] Support Name Relationship Address Phone LILIANALESTERLA Unavailable Unavailable UCHE THORNTON TERRELL Unavailable Unavailable UCHE THORNTON Insurance Providers: [...] Number Chen BLUELINK COMPREHEN MAXI Jul 28, [id number] [phone] JAZMIN ELAURENCEU PATIENT TPA SIVE E-O 2005 [id number] L [facility]OR [facility] EXPRESS PRESCRIPT MAXI Jul 28, KEERTHI [id number] [phone] MARIELOS IBARRA PATIENT SCRIPTS - ION E O 2005 [id number] L SUBROGATIO TURKE N Y [employer] MCR MEDICARE MCR Jul 28, [id number] [phone] KLU GEMARIELOS PATIENT (WNR) ADVANTAGE (WNR) 2013 1 89 8 L [employer] MCR MEDICARE MCR Jul 28, [id number] KLU GEMARIELOS PATIENT (WNR) ADVANTAGE (WNR) 2013 1 89 0 L [employer] MCR MEDICARE MCR Jul 28, [id number] [phone] KLU GEMARIELOS PATIENT (WNR) ADVANTAGE (WNR) 2013 1 89 2 L Selected Encounter This section includes the information on record at [place] for the Encounter. Date/Time Encounter Type Encounter Reason Provider Source Description May 31, 2021 PSYTX W PT 45 MH INTGRTD CARE ICD-10-CM F41.9 CHIROS,CHR ISTI 10:00 AM MINUTES IND Anxiety disorder, NE E unspecified with Provider Comments: Exposure to combat ([facility] [id number]) IHE Encounter Template Text not used by [place] Assessments - Encounter Diagnoses This section includes the primary and secondary diagnoses documented for the Encounter. Date/Time Primary/Secondary Diagnosis Name Provider Source Diagnosis May 31, 2021 PRIMARY Anxiety disorder, TEJAS TRIPP [facility] 11:28 AM unspecified [place] E [facility] Plan of Treatment: Future Appointments (+ 6 months) and Future Tests (+/- 45 days) The Plan of Treatment section includes future care activities for the patient from all [place] [facility]. This section includes future appointments and future orders which are active, pending orscheduled.Future Appointments This section includes appointments that were scheduled to occur 6 months from the date of the Encounter, up to a maximum of 20 appointments. The data comes from all [place] treatment facilities. Appointment Date/Time Appointment Type Appointment Facili ty Name Jul 05, 2021 10:00 AM AMBULATORY - PSYCHIATRY [facility] Jul 26, 2021 10:15 AM AMBULATORY - MEDICINE [place] ([facility]) Jul 26, 2021 10:45 AM AMBULATORY - NONE [place] ([facility]) Aug 10, 2021 03:00 PM AMBULATORY - MEDICINE [facility] Aug 28, 2021 11:00 AM AMBULATORY - PS[place]CHIATRY [place] ([facility]) Oct 30, 2021 09:00 AM AMBULATORY [facility]CHIATRY [place] ([facility]) Oct 30, 2021 10:00 AM AMBULATORY MEDICINE [place] ([facility]) Advance Directives: All historical and current Section Date Range: From patient's date of to the date document was created. This section includes ALL of a patient's completed or amended [place] Advance and Rescinded Directives. The entries below indicate that a directive exists for the patient, but an actual copy is not included with this document. The data comes from all [facility]. Date Advance Directives Provider Source Mar 12, 2019 ADVANCE DIRECTIVE KIARA BRANDT [facility] Mar 12, 2019 ADVANCE DIRECTIVE DISCUSSION KIARA BRANDT [facility] Encounter Notes: All associated encounter notes This section contains the clinical notes associated to the Encounter. Date/Time Encounter Note(s) Provider Source May 31, 2021 10:00 AM MENTAL HEALTH NOTE: BRYAN TRIPP [facility] LOCAL TITLE: MH PROGRESS NOTE STANDARD TITLE: MENTAL HEALTH NOTE DATE OF NOTE: MAY 31, 2021@10:00 ENTRY DATE: MAY 31, 2021@11:26:15 AUTHOR: BRYAN TRIPP EXP COSIGNER: URGENCY: STATUS: COMPLETED Individual Psychotherapy: 52 minutes face-to-fac e S/O - Patient on time for session. Focus of namrata dave's session was on the way patient talks to himself about challenge s that arise in his life, and how that has changed across his time in therapy. He noted today feeling like he interacts differently with his anxiety, and as s uch does not get way down by painful emotions the way he used to. Patient sees himself being more assertive, less concerned about what ot her people think moment to moment, and were able to have space for his ongoing intrusive thoughts ab out [place]. Considered ways patient is taking care of himself, engaging and connecting activities with people in his community, zoroastrian, and melissa e travel. 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 Handouts: none today Problems: Hypertensive disorder ([facility] [id number]) HHT - Hered itary hemorrhagic telangiectasia ([facility] [id number]) Erectile dysfunction ([facility] [id number]) Ocular migr shane ([facility] [id number]) Iron deficiency anemia due to chronic blHistory of deep vein thrombosis ([facility] [id number]) Irritable bowel syndrome with diarrhea (Pulmonar y embolism ([facility] 44979731) Insomnia ([facility] 208146126) Benign prostatic hypert rophy ([facility] 782881128) Varicose veins of left lower limb (SCT 1Acquired lactose intolerance ([facility] [id number]) Problem for which patient treated today: Exposure to combat ([facility] [id number]) - Anxiety dis order, unspecified (ICD-10-CM F41.9) [...] - Continue individua l psychotherapy, f/u in 5 weeks /catia/ BRYAN TRIPP, PHD, PSYCHOLOGIST Signed: 05/31/2021 11:28
--- OUTSIDE RECORDS SUMMARY | 2022-04-21 11:26 | XMS_ITS | Encounter Summary ---
:1945 Author Organization [facility] Address [address] [place] [phone] Support Name Relationship Address Phone LILIANALESTERLA Unavailable [...] Number Chen BLUELINK COMPREHEN MAXI Jul 28, [id number] [phone] JAZMIN ELAURENCEU PATIENT TPA SIVE E-O 2005 [id number] L [facility]OR [facility] EXPRESS PRESCRIPT MAXI Jul 28, KEERTHI [id number] [phone] MARIELOS IBARRA PATIENT SCRIPTS - ION E O 2005 [id number] L SUBROGATIO TURKE N Y [employer] MCR MEDICARE MCR Jul 28, [id number] [phone] KLU GEMARIELOS PATIENT (WNR) ADVANTAGE (WNR) 2013 1 89 2 L [employer] MCR MEDICARE MCR Jul 28, [id number] [phone] KLU GEMARIELOS PATIENT (WNR) ADVANTAGE (WNR) 2013 1 89 8 L [employer] MCR MEDICARE MCR Jul 28, [id number] [phone] KLU GEMARIELOS PATIENT (WNR) ADVANTAGE (WNR) 2013 1 89 0 L Selected Encounter This section includes the information on record at [place] for the Encounter. Date/Time Encounter Type Encounter Reason Provider Source Description Apr 26, 2021 PSYTX W PT 45 MH INTGRTD CARE ICD-10-CM F41.9 CHIROS,CHR ISTI 10:00 AM MINUTES IND Anxiety disorder, NE E unspecified with Provider Comments: Exposure to combat ([facility] [id number]) IHE Encounter Template Text not used by [place] Assessments - Encounter Diagnoses This section includes the primary and secondary diagnoses documented for the Encounter. Date/Time Primary/Secondary Diagnosis Name Provider Source Diagnosis Apr 26, 2021 PRIMARY Anxiety disorder, TEJAS TRIPP [facility] 11:46 AM unspecified NE E [facility] Plan of Treatment: Future Appointments (+ 6 months) and Future Tests (+/- 45 days) The Plan of Treatment section includes future care activities for the patient from all [place] [facility]. This section includes future appointments and future orders which are active, pending orscheduled.Future Appointments This section includes appointments that were scheduled to occur 6 months from the date of the Encounter, up to a maximum of 20 appointments. The data comes from all [place] treatment facilities. Appointment Date/Time Appointment Type Appointment Facili ty Name May 19, 2021 10:45 AM AMBULATORY - SURGERY [facility] May 31, 2021 10:00 AM AMBULATORY - PSYCHIATRY [facility] Jul 05, 2021 10:00 AM AMBULATORY - PSYCHIATRY [facility] Jul 26, 2021 10:15 AM AMBULATORY - MEDICINE [place] ([facility]) Jul 26, 2021 10:45 AM AMBULATORY - NONE [place] ([facility]) Aug 10, 2021 03:00 PM AMBULATORY - MEDICINE [facility] Aug 28, 2021 11:00 AM AMBULATORY - PSYCHIATRY [place] ([facility]) Advance Directives: All historical and current Section Date Range: From patient's date of to the date document was created. This section includes ALL of a patient's completed or amended [place] Advance and Rescinded Directives. The entries below indicate that a directive exists for the patient, but an actual copy is not included with this document. The data comes from all [facility]. Date Advance Directives Provider Source Mar 12, 2019 ADVANCE DIRECTIVE KIARA BRANDT [facility] Mar 12, 2019 ADVANCE DIRECTIVE DISCUSSION KIARA BRANDT [facility] Encounter Notes: All associated encounter notes This section contains the clinical notes associated to the Encounter. Date/Time Encounter Note(s) Provider Source Apr 26, 2021 10:00 AM MENTAL HEALTH NOTE: BRYAN TRIPP [facility] LOCAL TITLE: MH PROGRESS NOTE STANDARD TITLE: MENTAL HEALTH NOTE DATE OF NOTE: APR 26, 2021@10:00 ENTRY DATE: APR 26, 2021@11:42:47 AUTHOR: BRYAN TRIPP EXP COSIGNER: URGENCY: STATUS: COMPLETED Individual Psychotherapy: 52 minutes face-to-fac e S/O - Patient on time for session. As per usual, patient comes ready with list of things that have been on his mind over t he past month. Ongoing work around skills he can use when painful events fro m his past, haunt him or when more recent events have been that poke sens itive spots inside of him. Patient generally skillful with noticing, and be ing able to mentally step away from things that he cannot control. Ongoing work today around compassionate explanation for others behavior. S ome boundaries work today, noting patient's tendency to take ownership of c onsequences of other peoples choices that may lead to them having pain. Patie nt able to see this and consider alternative ways of framing such dilemm as. Some broader discussion around emotion mind, the multiple stressors ever yone around him and he experience in the world these days, as a way to build flexibility around how people are responding to those stressors. Handouts: none today Problems: Hypertensive disorder ([facility] [id number]) HHT - Hered itary hemorrhagic telangiectasia ([facility] [id number]) Erectile dysfunction ([facility] [id number]) Ocular migr shane ([facility] 92107906) Iron deficiency anemia due to chronic blHistory of deep vein thrombosis ([facility] 605616860) Irritable bowel syndrome with diarrhea (Pulmonar y embolism ([facility] [id number]) Insomnia ([facility] 079159160) Benign prostatic hypert rophy ([facility] 320679837) Varicose veins of left lower limb (SCT 1Acquired lactose intolerance ([facility] 73423456) Problem for which patient treated today: Exposure to combat ([facility] [id number]) - Anxiety dis order, unspecified (ICD-10-CM F41.9) [...] individua l psychotherapy, f/u in 5 weeks /es/ BRYAN TRIPP, PHD, LP PSYCHOLOGIST Signed: 04/26/2021 11:46
--- OUTSIDE RECORDS SUMMARY | 2022-04-21 11:26 | XMS_ITS | Encounter Summary ---
:1945 Author Organization [facility] Address [address] [place] [id number] Support Name Relationship Address Phone TERRELL FORD [...] Number Chen BLUELINK COMPREHEN MAXI Jul 28, [id number] [phone] JAZMIN ELAURENCEU PATIENT TPA SIVE E-O 2006 [id number] [phone] L [facility]OR [facility] ST[employer] EXPRESS PRESCRIPT MAXI Jul 28, KEERTHI [id number] [phone] MARIELOS IBARRA PATIENT SCRIPTS - ION E O 2004 [id number] L SUBROGATIO TURKE N Y [employer] MCR MEDICARE MCR Jul 28, [id number] [phone] DOMINIQUEU MARIELOS DOWELL PATIENT (WNR) ADVANTAGE (WNR) 2013 1 89 8 L [employer] MCR MEDICARE MCR Jul 28, [id number] [phone] KLU DELMERMARIELOS PATIENT (WNR) ADVANTAGE (WNR) 2013 1 89 0 L [employer] MCR MEDICARE MCR Jul 28, [id number] [phone] LAURENCE AGUEROU PATIENT (WNR) ADVANTAGE (WNR) 2013 1 89 2 L Selected Encounter This section includes the information on record at [place] for the Encounter. Date/Time Encounter Type Encounter Reason Provider Source Description May 19, 2021 SELF-MGMT EDUC AUDIOLOGY ICD-10-CM H90.3 GIGI MURRIETA 10:45 AM & TRAIN 1 PT Sensorineural S hearing loss, bilateral with Provider Comments: Sensorineural hearing loss, bilateral IHE Encounter Template Text not used by [place] Assessments - Encounter Diagnoses This section includes the primary and secondary diagnoses documented for the Encounter. Date/Time Primary/Secondary Diagnosis Name Provider Source Diagnosis May 19, 2021 PRIMARY Sensorineural GIGI MURRIETA [place] [facility] 11:34 AM hearing loss, S [facility] bilateral Plan of Treatment: Future Appointments (+ 6 months) and Future Tests (+/- 45 days) The Plan of Treatment section includes future care activities for the patient from all [place] [facility]. This section includes future appointments and future orders which are active, pending orscheduled.Future Appointments This section includes appointments that were scheduled to occur 6 months from the date of the Encounter, up to a maximum of 20 appointments. The data comes from all [place] treatment facilities. Appointment Date/Time Appointment Type Appointment Facili ty Name May 31, 2021 10:00 AM AMBULATORY - PSYCHIATRY [facility] Jul 05, 2021 10:00 AM AMBULATORY PSYCHIATRY [facility] Jul 26, 2021 10:15 AM AMBULATORY - MEDICINE [place] ([facility]) Jul 26, 2021 10:45 AM AMBULATORY - NONE [place] ([facility]) Aug 10, 2021 03:00 PM AMBULATORY - MEDICINE [facility] Aug 28, 2021 11:00 AM AMBULATORY - PS[facility]CHIATRY [place] ([facility]) Oct 30, 2021 09:00 AM AMBULATORY - PS[facility]CHIATRY [place] ([facility]) Oct 30, 2021 10:00 AM AMBULATORY MEDICINE [place] ([facility]) Advance Directives: All historical and current Section Date Range: From patient's date of to the date document was created. This section includes ALL of a patient's completed or amended [place] Advance and Rescinded Directives. The entries below indicate that a directive exists for the patient, but an actual copy is not included with this document. The data comes from all [facility]. Date Advance Directives Provider Source Mar 12, 2019 ADVANCE DIRECTIVE KIARA BRANDT [facility] Mar 12, 2019 ADVANCE DIRECTIVE DISCUSSION KIARA BRANDT [facility] Encounter Notes: All associated encounter notes This section contains the clinical notes associated to the Encounter. Date/Time Encounter Note(s) Provider Source May 19, 2021 10:41 AM AUDIOLOGY NOTE: GEOVANNY MURRIETAI Shital [facility] LOCAL TITLE: AUDIOLOGY CLINIC NOTE STANDARD TITLE: AUDIOLOGY NOTE DATE OF NOTE: MAY 19, 2021@10:41 ENTRY DATE: MAY 19, 2021@10:41:15 AUTHOR: GEOVANNY MURRIETA EXP COSIGNER: URGENCY: STATUS: COMPLETED Reason for visit: therapeutic, hearing aid fitti ng. Diagnosis: Sensorineural loss bilateral Hearing aid-right: Make: Phonak Model: Audeo P90 gina R Style: Serial #: [id number] Hearing aid-left: Make: Phonak Model: Audeo P90 gina R Style: Serial #: [id number] Comment: Gibbon reported hearing aid sound quality was v lalo good. Paired the aids with his cell phone and made a c all successfully. He downloaded the Tinnitus Relief [place] and the My Phonak [place]. The Index Sound Generator was also very helpfu l for sleeping. /catia/ Radha ALVARADO STAFF INSPECTOR WREATH Signed: 05/19/2021 11:35
--- OUTSIDE RECORDS SUMMARY | 2022-04-21 11:26 | XMS_ITS | Encounter Summary ---
:1945 Author Organization [facility] Address [address] [place] [address] Support Name Relationship Address Phone LILIANA TERRELL Unavailable Unavailable UCHE THORNTON TERRELL Unavailable Unavailable [...] Number Chen BLUELINK COMPREHEN MAXI Jul 28, [id number] [phone] JAZMIN ELAURENCEU PATIENT TPA SIVE E-O 2005 [id number] L MAJOR [facility] EXPRESS PRESCRIPT MAXI Jul 28, KEERTHI [id number] [phone] MARIELOS IBARRA PATIENT SCRIPTS - ION E O 2005 [id number] L SUBROGATIO TURKE N Y [employer] MCR MEDICARE MCR Jul 28, [id number] [phone] KLU DELMERMARIELOS PATIENT (WNR) ADVANTAGE (WNR) 2013 1 89 8 L [employer] MCR MEDICARE MCR Jul 28, [id number] KLU GEMARIELOS PATIENT (WNR) ADVANTAGE (WNR) 2013 1 89 0 L [employer] MCR MEDICARE MCR Jul 28, [id number] [phone] KLU GEMARIELOS PATIENT (WNR) ADVANTAGE (WNR) 2013 1 89 2 L Selected Encounter This section includes the information on record at [place] for the Encounter. Date/Time Encounter Type Encounter Reason Provider Source Description Jul 05, 2021 PSYTX W PT 45 MH INTGRTD CARE ICD-10-CM F41.9 CHIROS,CHR ISTI 10:00 AM MINUTES IND Anxiety disorder, NE E unspecified with Provider Comments: Exposure to combat ([facility] [id number]) IHE Encounter Template Text not used by [place] Assessments - Encounter Diagnoses This section includes the primary and secondary diagnoses documented for the Encounter. Date/Time Primary/Secondary Diagnosis Name Provider Source Diagnosis Jul 05, 2021 PRIMARY Anxiety disorder, CHIROS,TEJAS SHAWNO [facility] 04:44 PM unspecified NE E [facility] Plan of Treatment: Future Appointments (+ 6 months) and Future Tests (+/- 45 days) The Plan of Treatment section includes future care activities for the patient from all [place] treatmentfacilities. This section includes future appointments and future orders which are active, pending orscheduled.Future Appointments This section includes appointments that were scheduled to occur 6 months from the date of the Encounter, up to a maximum of 20 appointments. The data comes from all [place] treatment facilities. Appointment Date/Time Appointment Type Appointment Facili ty Name Jul 26, 2021 10:15 AM AMBULATORY - MEDICINE [place] ([facility]) Jul 26, 2021 10:45 AM AMBULATORY - NONE [place] ([facility]) Aug 10, 2021 03:00 PM AMBULATORY - MEDICINE [facility] Aug 28, 2021 11:00 AM AMBULATORY - [facility]CHIATRY [place] ([facility]) Oct 30, 2021 09:00 AM AMBULATORY - [facility]CHIATRY [place] ([facility]) Oct 30, 2021 10:00 AM AMBULATORY - MEDICINE [facility]) Jan 01, 2022 02:00 PM AMBULATORY - PSYCHIATRY [place] ([facility]) Lab Results: +/- 30 days of the encounter This section includes the Chemistry and Hematology Lab Results on record with [place] for the patient. Radiology Reports and Pathology Reports are provided separately, in subsequent sections.Lab Results This section contains the Chemistry/Hematology Results that were resulted 30 days before or 30 daysafter the date of the Encounter. Date/Time Source Result Type Result - Unit Interpretation Reference Range Comment Jul 26, 2021 11:02 AM [facility] ([facility]) IRON GROUP Specimen Type: PLASMA No comment enter ed. Ordering Provid er: EVANS SMALL Report Released Date/Time: Jul 26, 2021 10:58 AM Reporting Lab: [facility] [id number] [facility]forming Lab[facility] [id number] IRON 101 65-175 TIBC,CALCULATED 200 L 250-425 FERRITIN 56.1 21.8-274.7 IRON SATURATION 51 H 20-50 TRANSFERRIN 160 L 163-382 Jul 26, 2021 11:02 [facility] ([facility]) BASIC METABOLIC Specimen Ty pe: PLASMA AM PANEL+MG No comment enter ed. Ordering Provid er: EVANS SMALL Report Released Date/Time: Jul 26, 2021 10:58 AM Reporting [facility] [address] Performing Lab: [facility] [id number] CREATININE 1.1 0.7-1.2 UREA NITROGEN 15 8-26 GLUCOSE 91 74-100 SODIUM 138 136-145 POTASSIUM 4.2 3.5-5.1 CHLORIDE 101 98-107 CO2 28 22-29 CALCIUM 9.7 8.4-10.2 MAGNESIUM 2.0 1.6-2.6 ANION GAP 9 5-15 ESTIMATED GFR(eGFR) 65 >60 Jul 26, 2021 11:02 [facility] ([facility]) LIPID PANEL,NON-FASTING Spe cimen Type: PLASMA AM No comment enter ed. Ordering Provid er: EVANS SMALL Report Released Date/Time: Jul 26, 2021 10:58 AM Reporting Lab: [facility] [id number] Performing Lab: [facility] [address] CHOLESTEROL 140 <199 .HDL 44 >40 LDL CALCULATION 78 <99 VLDL CALCULATION 18 <29 NON HDL CHOLESTEROL 96 <129 TRIG(NON FASTING) 92 <149 Jul 26, 2021 11:02 AM [facility] ([facility]) CBC Specimen Type: BLOOD No comment enter ed. Ordering Provid er: EAVNS SMALL Report Released Date/Time: Jul 26, 2021 10:58 AM Reporting Lab: [facility] [address] Performing Lab: [facility] [address] WBC 4.47 4.0-11.0 RBC 4.35 L 4.6-6.2 HGB 15.1 13.5-17.9 HCT 45.1 41-54 MCV 103.7 H 80-100 MCH 34.7 H 27-33 MCHC 33.5 32.0-37.5 PLT 254 150-400 MPV 10.0 7.4-10.4 RDW 13.2 11.5-14.5 Jul 26, 2021 11:01 AM [facility] PSA Specim en Type: SERUM No comment enter ed. Ordering Provid er: IRENE UMANZOR Report Released Date/Time: Feb 28, 2021 05:23 PM Reporting Lab: [facility] [address] [facility] [address] Performing Lab: [facility] [address] [facility] [address] PSA 0.36 <4.00 Jul 26, 2021 11:01 AM [facility] IRON GROUP Specim en Type: SERUM No comment enter ed. Ordering Provid er: MONICA RODRIGUEZ Report Released Date/Time: Jan 10, 2021 11:21 AM Reporting Lab: [facility] [address] [facility] [address] Performing Lab: [facility] [address] [facility] [address] IRON 101 65-175 TIBC,CALCULATED 195 L 250-425 FERRITIN 47.4 21.8-274.7 IRON SATURATION 52 H 20-50 TRANSFERRIN 156 L 163-382 Jul 26, 2021 11:01 [facility] BASIC METABOLIC Specimen Type: PLASMA AM PANEL+MG No comment enter ed. Ordering Provid er: MONICA RODRIGUEZ Report Released Date/Time: Jan 10, 2021 11:21 AM Reporting Lab: [facility] [address] [facility] [address] Performing Lab: [facility] [address] [facility] [address] CREATININE 1.1 0.7-1.2 UREA NITROGEN 14 8-26 GLUCOSE 91 74-100 SODIUM 139 136-145 POTASSIUM 4.2 3.5-5.1 CHLORIDE 103 98-107 CO2 28 22-29 CALCIUM 9.6 8.4-10.2 MAGNESIUM 2.1 1.6-2.6 ANION GAP 8 5-15 ESTIMATED GFR(eGFR) 65 >60 Jul 26, 2021 11:01 AM [facility] CBC & DIFF Specim en Type: BLOOD Comment: Automa armand Differential Performed Ordering Provid er: MONICA RODRIGUEZ Report Released Date/Time: Jan 10, 2021 11:21 AM Reporting Lab: [facility] [address] [facility] [address] Performing Lab: [facility] [address] [facility] [address] WBC 4.41 4.0-11.0 RBC 4.36 L 4.6-6.2 [...] ALL of a patient's completed or amended [place] Advance and Rescinded Directives. The entries below indicate that a directive exists for the patient, but an actual copy is not included with this document. The data comes from all [place] facilities. Date Advance Directives Provider Source Mar 12, 2019 ADVANCE DIRECTIVE KIARA BRANDT [facility] Mar 12, 2019 ADVANCE DIRECTIVE DISCUSSION KIARA BRANDT [facility] Encounter Notes: All associated encounter notes This section contains the clinical notes associated to the Encounter. Date/Time Encounter Note(s) Provider Source Jul 05, 2021 10:00 AM MENTAL HEALTH NOTE: BRYAN TRIPP [facility] LOCAL TITLE: MH PROGRESS NOTE STANDARD TITLE: MENTAL HEALTH NOTE DATE OF NOTE: JUL 05, 2021@10:00 ENTRY DATE: JUL 05, 2021@16:37:16 AUTHOR: BRYAN TRIPP COSIGNER: URGENCY: STATUS: COMPLETED Individual Psychotherapy: 52 minutes face-to-fac e S/O - Patient on time for session. Patie nt sharing what he has been working on since last time (connecting with ex- in a po sitive way, socializing, inviting others to a meal at his home, going out and doing things in his community) and we discussed the progress he has made with regard to effectively taking care of his mental health. Discussed this provider's changing role and patient's overall stability, considering treatme nt needs and wants (patient noting he has found occasional booster sessions helpful). Patient initially noting how he is doing well and keeping things ligh t, and invited to settle into noticing his feelings and some of the challenge ar ound hearing about the change. We agreed to meet in early August and touch base on how patient is doing and consider future directions. Handouts: none today Problems: Hypertensive disorder ([facility] [id number]) HHT - Hered itary hemorrhagic telangiectasia ([facility] [id number]) Erectile dysfunction ([facility] [id number]) Ocular migr shane ([facility] [id number]) Iron deficiency anemia due to chronic blHistory of deep vein thrombosis ([facility] [id number]) Irritable bowel syndrome with diarrhea (Pulmonar y embolism ([facility] [id number]) Insomnia ([facility] [id number]) Benign prostatic hypert rophy ([facility] [id number]) Varicose veins of left lower limb (SCT 1Acquired lactose intolerance ([facility] [id number]) Problem for which patient treated today: Exposure to combat ([facility] [id number]) - Anxiety dis order, unspecified (ICD-10-CM F41.9) [...] Continue individua l psychotherapy, f/u in early August /catia/ BRYAN TRIPP, PHD, LP PSYCHOLOGIST Signed: 07/05/2021 16:44
--- OUTSIDE RECORDS SUMMARY | 2022-04-21 11:27 | XMS_ITS | Encounter Summary ---
:1945 Author Organization [facility] Address [address] [place] [address] Support Name Relationship Address Phone TERRELL FORD [...] Number Chen BLUELINK COMPREHEN MAXI Jul 28, [id number] [phone] JAZMIN ELAURENCEU PATIENT TPA SIVE E-O 2006 0 [id number] L MAJOR [facility] STOR EXPRESS PRESCRIPT MAXI Jul 28, KEERTHI [id number] [phone] MARIELOS IBARRA PATIENT SCRIPTS - ION E O 2005 [id number] L SUBROGATIO TURKE N Y [employer] MCR MEDICARE MCR Jul 28, [id number] [phone] DOMINIQUEU MARIELOS DOWELL PATIENT (WNR) ADVANTAGE (WNR) 2013 1 89 8 L [employer] MCR MEDICARE MCR Jul 28, [id number] KLU DELMERMARIELOS PATIENT (WNR) ADVANTAGE (WNR) 2013 1 89 0 L [employer] MCR MEDICARE MCR Jul 28, [id number] [phone] KLViraj DOWELLMARIELOS PATIENT (WNR) ADVANTAGE (WNR) 2013 1 89 2 L Selected Encounter This section includes the information on record at [place] for the Encounter. Date/Time Encounter Type Encounter Reason Provider Source Description Apr 26, 2021 IMMUNIZATION GENERAL INTERNAL ICD-10-CM Z23 ELDE,MANUEL 12:10 PM ADMIN MEDICINE Encounter for HORACIO immunization with Provider Comments: Encounter for Immunization IHE Encounter Template Text not used by [place] Assessments - Encounter Diagnoses This section includes the primary and secondary diagnoses documented for the Encounter. Date/Time Primary/Secondary Diagnosis Name Provider Source Diagnosis Apr 26, 2021 PRIMARY Encounter for MANUEL DANIEL [facility] 12:13 PM immunization HORACIO [facility] Plan of Treatment: Future Appointments (+ 6 months) and Future Tests (+/- 45 days) The Plan of Treatment section includes future care activities for the [place] [facility] [place] [facility] This section includes future appointments and future orders which are active, pending orscheduled.Future Appointments This section includes appointments that were scheduled to occur 6 months from the date of the Encounter, up to a maximum of 20 appointments. The data comes from all [place] treatment facilities. Appointment Date/Time Appointment Type Appointment Facili ty Name May 19, 2021 10:45 AM AMBULATORY - SURGERY [facility] May 31, 2021 10:00 AM AMBULATORY - PSYCHIATRY [facility] Jul 05, 2021 10:00 AM AMBULATORY - PSYCHIATRY [facility] Jul 26, 2021 10:15 AM AMBULATORY - MEDICINE [place] ([facility]) Jul 26, 2021 10:45 AM AMBULATORY - NONE [place] ([facility]) Aug 10, 2021 03:00 PM AMBULATORY - MEDICINE [facility] Aug 28, 2021 11:00 AM AMBULATORY - PSYCHIATRY [place] ([facility]) Immunizations: All administered on the encounter date This section contains immunizations associated to the Encounter. Immunization Series Date Issued Reaction Comments COVID-19 (PFIZER), MRNA, LNP-S, 3 Apr 26, 2021 PFR; [id number]; 05/27/2021 PF, 30 MCG/0.3 ML DOSE INFLUENZA, INJECTABLE, Apr 26, 2021 QUADRIVALENT, PRESERVATIVE FREE Advance Directives: All historical and current Section Date Range: From patient's date of to the date document was created. This section includes ALL of a patient's completed or amended [place] Advance and Rescinded Directives. The entries below indicate that a directive exists for the patient, but an actual copy is not included with this document. The data comes from all [facility]. Date Advance Directives Provider Source Mar 12, 2019 ADVANCE DIRECTIVE KIARA BRANDT [facility] Mar 12, 2019 ADVANCE DIRECTIVE DISCUSSION KIARA BRANDT [facility] Encounter Notes: All associated encounter notes This section contains the clinical notes associated to the Encounter. Date/Time Encounter Note(s) Provider Source Apr 26, 2021 12:13 PM IMMUNIZATION NOTE: MANUEL DANIEL [facility] LOCAL TITLE: INFLUENZA VACCINATION STANDARD TITLE: IMMUNIZATION NOTE DATE OF NOTE: APR 26, 2021@12:13 ENTRY DATE: APR 26, 2021@12:13:20 AUTHOR: MANUEL DANIEL EXP COSIGNER: URGENCY: STATUS: COMPLETED The patient was given the influenza VIS which li sts the benefits and side effects of the vaccine and which reviews the ris ks of not receiving the flu vaccine. The VIS was reviewed with the patient a nd they were given an opportunity to ask questions. The patient was pr ovided education on how to decrease the risk of influen za infection including social distancing and use of good hand hygiene. The patient denied any prior severe reaction to the flu vaccine or its components. The patient gave verb al consent to receive the vaccine. The seasonal influenza vaccine VIS given to the patient: VIS version date Feb. The patient received seasonal influenza vaccine today - Influenza, Quadrivalent preservative free (Afluria) 0.5 ml IM today in Left Deltoid. 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 Lot # and Expiration Date: Lot#:[id number], EXP :01/09/2022 Administered by protocol/policy Complications: None /es/ MANUEL DANIEL Signed: 04/26/2021 12:13 Apr 26, 2021 12:12 PM NURSING IMMUNIZATION NOTE: MANUEL DANIEL [facility] LOCAL TITLE: VAAES OUTPATIENT COVID VACCINE ADM INISTRATION STANDARD TITLE: NURSING IMMUNIZATION NOTE DATE OF NOTE: APR 26, 2021@12:12 ENTRY DATE: APR 26, 2021@12:12:46 AUTHOR: MANUEL DANIEL EXP COSIGNER: URGENCY: STATUS: COMPLETED The patient was given the VIS for this vaccine w hich lists the benefits and side effects of [...] gave verbal consent to receive the vaccine. The patient received [employer] COVID-19 Vaccine 0. 3 ml IM. MVX (Manuf); Lot#; Exp Date: PFR; [id number]; 05/27 Administration Anatomic site: Left Deltoid Vaccine administered without complications. The patient was advised to remain in the facility for 15 minutes p ost vaccination. The patient was given a completed COVID-19 vaccination record card, a copy of the [facility] Side Effects and Adverse Events Reporting Fact Sheet and ins tructed on how to report any adverse reactions. Vaccine administered by policy/protocol. /catia/ MANUEL DANIEL Signed: 04/26/2021 12:13
--- OUTSIDE RECORDS SUMMARY | 2022-04-21 11:28 | XMS_ITS | Encounter Summary ---
:1945 Author Organization [facility] Address [address] [place] [address] Support Name Relationship Address Phone TERRELL FORD [...] Number Chen BLUELINK COMPREHEN MAXI Jul 28, [id number] [phone] JAZMIN ELAURENCEU PATIENT TPA SIVE E-O 2006 0 [id number] L [facility]OR [facility] ST[facility] EXPRESS PRESCRIPT MAIX Jul 28, KEERTHI [id number] [phone] MARIELOS IBRARA PATIENT SCRIPTS - ION E O 2004 [id number] L SUBROGATIO TURKE N Y [employer] MCR MEDICARE MCR Jul 28, [id number] [phone] KLU DELMERMARIELOS PATIENT (WNR) ADVANTAGE (WNR) 2013 1 89 8 L [employer] MCR MEDICARE MCR Jul 28, [id number] KLU DELMERMARIELOS PATIENT (WNR) ADVANTAGE (WNR) 2013 1 89 0 L [employer] MCR MEDICARE MCR Jul 28, [id number] [phone] KLU DELMERMARIELOS PATIENT (WNR) ADVANTAGE (WNR) 2013 1 89 2 L Selected Encounter This section includes the information on record at [place] for the Encounter. Date/Time Encounter Type Encounter Description Reason Provider Source Jan 10, 2022 12:00 Outpatient Encounter GI ENDOSCOPY PM IHE Encounter Template Text not used by [place] Plan of Treatment: Future Appointments (+ 6 months) and Future Tests (+/- 45 days) The Plan of Treatment section includes future care activities for the patient [facility] [place] [facility] This section includes future appointments and future orders which are active, pending orscheduled.Future Appointments This section includes appointments that were scheduled to occur 6 months from the date of the Encounter, up to a maximum of 20 appointments. The data comes from all [place] treatment facilities. Appointment Date/Time Appointment Type Appointment Facili ty Name Feb 15, 2022 10:15 AM AMBULATORY - NONE [place] ([facility]) Feb 15, 2022 12:43 PM AMBULATORY - NONE [facility] Feb 22, 2022 02:30 PM AMBULATORY - MEDICINE [facility] Feb 26, 2022 11:00 AM AMBULATORY - PSYCHIATRY [place] ([facility]) Apr 30, 2022 11:00 AM AMBULATORY - PSYCHIATRY [place] ([facility]) Jun 25, 2022 09:30 AM AMBULATORY - NONE [place] ([facility]) Jun 28, 2022 01:00 PM AMBULATORY - MEDICINE [facility] Advance Directives: All historical and current Section Date Range: From patient's date of to the date document was created. This section includes ALL of a patient's completed or amended [place] Advance and Rescinded Directives. The entries below indicate that a directive exists for the patient, but an actual copy is not included with this document. The data comes from all [facility]. Date Advance Directives Provider Source Mar 12, 2019 ADVANCE DIRECTIVE KIARA BARNDT [facility] Mar 12, 2019 ADVANCE DIRECTIVE DISCUSSION KIARA BRANDT [facility] Encounter Notes: All associated encounter notes This section contains the clinical notes associated to the Encounter. Date/Time Encounter Note(s) Provider Source Jan 10, 2022 12:00 PM REPORT OF CONTACT: KYA MILIAN [facility] LOCAL TITLE: APPOINTMENT SCHEDULING NOTE STANDARD TITLE: REPORT OF CONTACT DATE OF NOTE: JAN 10, 2022@12:00 ENTRY DATE: JAN 10, 2022@12:00:13 AUTHOR: KYA MILIAN V EXP COSIGNER: URGENCY: STATUS: COMPLETED Recall (PtCSch) contact efforts No response to scheduling efforts Contact: Automated letter sent to [employer] meagan meng on file on: November Contact: Called at phone: Left message on voice mail. Phone number left for to call back: If [facility] calls back, schedule appointment for: Activity: 01/10/2016 09:56 New Order entered by ELVA PRICE (STAFF PHYSICIAN) Order Text: Return to Clinic : 6 Years Colonoscopy Timeframe: Nature of Order: ELECTRONICALLY ENTERED Elec Signature: DYLAN PRICE (STAFF PHYSICIAN) on 01/10/2016 09:57 [place] Steward/Stewardess Verified: AAYUSH ELIZABETH (OPHTHALMOLOGY T) on 02/02/2016 13:15 Provider: please review veterans chart and medi cations for renewal needs (if appropriate). The recall request has been deleted. /catia/ KYA MORTON Signed: 01/10/2022 12:01
[2022-04-21 11:29] LABS: Basophils Absolute Auto 0.02 K/uL (0.00-0.30); Basophils Percent Auto 0.4 % (0.0-3.0); Eosinophils Absolute Auto 0.05 K/uL (0.00-0.50); Hematocrit 37.6 % (37.0-53.0); Hemoglobin* 12.7 gm/dL (13.5-17.5); Immature Granulocytes Abs Auto 0.01 K/uL (0.00-0.30); Lymphocytes Percent Auto 17.1 % (20-44); Mean Corpuscular HGB Conc 34 gm/dL (32-36); Mean Corpuscular Hemoglobin 34 pg (26-34); Mean Corpuscular Volume 102 fL (80-100); Monocytes Percent Auto 9.9 % (0.0-11.0); Neutrophils Absolute Auto 3.47 K/uL (1.7-7.0); Neutrophils Percent Auto 71.4 % (42.0-72.0); Platelet Count* 252 K/uL (140-440); RDW Coefficient of Variation % 14.1 % (11.5-15.5); Red Blood Count 3.69 m/uL (4.30-5.90); White Blood Count* 4.86 K/uL (4.50-11.00)
--- OUTSIDE RECORDS SUMMARY | 2022-04-21 11:29 | XMS_ITS | Encounter Summary ---
:1945 Author Organization [facility] Address [address] [place] [address] Support Name Relationship Address Phone TERRELL FORD [...] Number Chen BLUELINK COMPREHEN MAXI Jul 28, [id number] [phone] JAZMIN ELAURENCEU PATIENT TPA SIVE E-O 2006 0 [id number] L MAJOR [facility] ST[facility] EXPRESS PRESCRIPT MAXI Jul 28, KEERTHI [id number] [phone] MARIELOS IBARRA PATIENT SCRIPTS - ION E O 2005 [id number] L SUBROGATIO TURKE N Y [employer] MCR MEDICARE MCR Jul 28, [id number] [phone] KLU DELMERMARIELOS PATIENT (WNR) ADVANTAGE (WNR) 2013 1 89 8 L [employer] MCR MEDICARE MCR Jul 28, [id number] KLU DELMERMARIELOS PATIENT (WNR) ADVANTAGE (WNR) 2013 1 89 0 L [employer] MCR MEDICARE MCR Jul 28, [id number] [phone] KLViraj DOWELLMARIELOS PATIENT (WNR) ADVANTAGE (WNR) 2013 1 89 2 L Selected Encounter This section includes the information on record at OR for the Encounter. Date/Time Encounter Type Encounter Reason Provider Source Description Feb 27, 2022 Outpatient SLEEP MEDICINE ICD-10-CM G47.9 CAITLIN WILKINS 08:26 AM Encounter Sleep disorder J unspecified with Provider Comments: Sleep Disorder, unspecified IHE Encounter Template Text not used by OR Assessments - Encounter Diagnoses This section includes the primary and secondary diagnoses documented for the Encounter. Date/Time Primary/Secondary Diagnosis Name Provider Source Diagnosis Feb 27, 2022 PRIMARY Sleep disorder, CAITLIN WILKINS OR 08:27 AM unspecified [facility] Plan of Treatment: Future Appointments (+ 6 months) and Future Tests (+/- 45 days) The Plan of Treatment section includes future care activities for the patient from all [facility] This section includes future appointments and future orders which are active, pending orscheduled.Future Appointments This section includes appointments that were scheduled to occur 6 months from the date of the Encounter, up to a maximum of 20 appointments. The data comes from all [facility]. Appointment Date/Time Appointment Type Appointment Facili ty Name Apr 30, 2022 11:00 AM AMBULATORY - PSYCHIATRY [facility] ([facility]) Jun 25, 2022 09:30 AM AMBULATORY - NONE [facility] ([facility]) Jun 28, 2022 01:00 PM AMBULATORY - MEDICINE [facility] Jul 25, 2022 09:45 AM AMBULATORY - MEDICINE [facility] ([facility]) Active, Pending, and Scheduled Orders This section includes a listing of several types of active, pending, and scheduled orders, including clinic medications orders, diagnostic test orders, procedure orders and consult orders; where the start date of the order is 45 days before the date of the Encounter or 45 days after the date of the Encounter. The data comes from all [place] treatment [facility]. Test Date/Time Test Type Test Details Facility Name Feb 27, 2022 08:27 AM Consult Order SLEEP MEDICINE WPAT Cons [facility] Lab Results: +/- 30 days of the encounter This section includes the Chemistry and Hematology Lab Results on record with OR for the patient. Radiology Reports and Pathology Reports are provided separately, in subsequent sections.Lab Results This section contains the Chemistry/Hematology Results that were resulted 30 days before or 30 daysafter the date of the Encounter. Date/Time Source Result Type Result - Unit Interpretation Reference Range Comment Feb 15, 2022 10:00 AM [facility] CBC & DIFF Specim en Type: BLOOD Comment: Automa armand Differential Performed Ordering Provid er: MONICA RODRIGUEZ Report Released Date/Time: Aug 14, 2021 11:15 AM Reporting Lab: [facility] [id number] Performing Lab: [facility] [id number] WBC 4.33 4.0-11.0 RBC 3.93 L 4.6-6.2 HGB 13.2 L 13.5-17.9 HCT 39.1 L 41-54 MCV 99.5 80-100 MCH 33.6 H 27-33 MCHC 33.8 32.0-37.5 PLT 270 150-400 MPV 10.0 7.4-10.4 NEUT 65.0 LYMPHS 22.6 MONO 9.9 EOSINO 1.8 BASO 0.2 RDW 13.1 11.5-14.5 ABS LYMPH 0.98 L 1.0-4.0 ABS MONO 0.43 0.1-1.0 ABS NEUT 2.81 2.0-7.7 ABS EOS 0.08 0-0.5 ABS BASO 0.01 0-0.2 IG(META,MYELO,PRO) 0.5 ABS IMMATURE GRAN 0.02 0-0.1 Feb 15, 2022 [facility] COMPREHENSIVE METABOLIC Spec imen Type: PLASMA 10:00 AM PANEL+MG No comment enter ed. Ordering Provid er: MONICA RODRIGUEZ Report Released Date/Time: Aug 14, 2021 11:15 AM Reporting Lab: [facility] [id number] Performing Lab: [facility] [id number] CREATININE 1.1 0.7-1.2 UREA NITROGEN 15 8-26 GLUCOSE 96 74-100 SODIUM 138 136-145 POTASSIUM 4.0 3.5-5.1 CHLORIDE 104 98-107 CO2 26 22-29 CALCIUM 9.6 8.4-10.2 PROTEIN,TOTAL 7.5 6.0-8.3 ALBUMIN 4.0 3.5-5.2 BILIRUBIN, TOTAL 0.8 0.2-1.2 MAGNESIUM 2.0 1.6-2.6 ANION GAP 8 5-15 ALKALINE PHOSPHATASE 62 40-150 ALT/SGPT 13 <55 AST/SGOT 19 <34 CREAT EGFR(CKD-EPI) 70 >60 Advance Directives: All historical and current Section Date Range: From patient's date of to the date document was created. This section includes ALL of a patient's completed or amended OR Advance and Rescinded Directives. The entries below indicate that a directive exists for the patient, but an actual copy is not included with this document. The data comes from all OR facilities. Date Advance Directives Provider Source Mar 12, 2019 ADVANCE DIRECTIVE KIARA BRANDT [facility] Mar 12, 2019 ADVANCE DIRECTIVE DISCUSSION KIARA BRANDT [facility] Encounter Notes: All associated encounter notes This section contains the clinical notes associated to the Encounter. Date/Time Encounter Note(s) Provider Source Feb 27, 2022 08:26 AM SLEEP MEDICINE CONSULT: CAITLIN WILKINS [facility] LOCAL TITLE: SLEEP MEDICINE CONSULT STANDARD TITLE: SLEEP MEDICINE CONSULT DATE OF NOTE: FEB 27, 2022@08:26 ENTRY DATE: FEB 27, 2022@08:27 AUTHOR: CAITLIN WILKINS EXP COSIGNER: URGENCY: STATUS: COMPLETED SLEEP MEDICINE E-CONSULT NOTE Request for evaluation of sleep apnea received. In order to determine the best modality for diag nostic testing (portable unattended sleep study vs in-lab attended polyso mnogram), a chart review was performed. Based on my review of the 's reported sym ptoms, past medical history, medications, body mass index, and tests (where a pplicable), I have made the following determination: Recommend to complete portable sleep study (WPAT ) to evaluate for presence/severity of obstructive sleep apnea. If the is unable to complete the request ed sleep study per the scheduling protocol, a new sleep consult will be required. /catia/ LAURENCE KILPATRICK PHYSICIAN PRN PHYSICAL THERAPIST Signed: 02/27/2022 08:27
--- OUTSIDE RECORDS SUMMARY | 2022-04-21 11:29 | XMS_ITS | Encounter Summary ---
:1945 Author Organization [facility] Address [address] [place] [address] Support Name Relationship Address Phone TERRELL FORD [...] Number Chen BLUELINK COMPREHEN MAXI Jul 28, [id number] [phone] JAZMIN ELAURENCEU PATIENT TPA SIVE E-O 2006 0 [id number] L MAJOR [facility] STOR EXPRESS PRESCRIPT MAXI Jul 28, KEERTHI [id number] [phone] MARIELOS IBARRA PATIENT SCRIPTS - ION E O 2005 8100 7 L SUBROGATIO TURKE N Y [employer] MCR MEDICARE MCR Jul 28, [id number] [phone] KLU DELMERMARIELOS PATIENT (WNR) ADVANTAGE (WNR) 2013 1 89 8 L [employer] MCR MEDICARE MCR Jul 28, [id number] [phone] KLU DELMERMARIELOS PATIENT (WNR) ADVANTAGE (WNR) 2013 1 89 0 L [employer] MCR MEDICARE MCR Jul 28, [id number] [phone] KLU DELMERMARIELOS PATIENT (WNR) ADVANTAGE (WNR) 2013 1 89 2 L Selected Encounter This section includes the information on record at CT for the Encounter. Date/Time Encounter Type Encounter Reason Provider Source Description Jan 17, 2022 12:00 Outpatient PRIMARY CAITLIN BOBO PM Encounter CARE/MEDICINE L IHE Encounter Template Text not used by CT Plan of Treatment: Future Appointments (+ 6 months) and Future Tests (+/- 45 days) The Plan of Treatment section includes future care activities for the [facility] This section includes future appointments and future orders which are active, pending orscheduled.Future Appointments This section includes appointments that were scheduled to occur 6 months from the date of the Encounter, up to a maximum of 20 appointments. The data comes from all CT treatment [facility]. Appointment Date/Time Appointment Type Appointment Facili ty Name Feb 15, 2022 10:15 AM AMBULATORY - NONE [facility] ([facility]) Feb 15, 2022 12:43 PM AMBULATORY - NONE [facility] Feb 22, 2022 02:30 PM AMBULATORY - MEDICINE [facility] Feb 26, 2022 11:00 AM AMBULATORY - PSYCHIATRY [facility] ([facility]) Apr 30, 2022 11:00 AM AMBULATORY - PSYCHIATRY [facility] ([facility]) Jun 25, 2022 09:30 AM AMBULATORY - NONE [facility] ([facility]) Jun 28, 2022 01:00 PM AMBULATORY - MEDICINE [facility] Active, Pending, and Scheduled Orders This section includes a listing of several types of active, pending, and scheduled orders, including clinic medications orders, diagnostic test orders, procedure orders and consult orders; where the start date of the order is 45 days before the date of the Encounter or 45 days after the date of the Encounter. The data comes from all [facility]. Test Date/Time Test Type Test Details Facility Name Feb 27, 2022 08:27 AM Consult Order SLEEP MEDICINE WPAT [facility] Lab Results: +/- 30 days of the encounter This section includes the Chemistry and Hematology Lab Results on record with CT for the patient. Radiology Reports and Pathology Reports are provided separately, in subsequent sections.Lab Results This section contains the Chemistry/Hematology Results that were resulted 30 days before or 30 daysafter the date of the Encounter. Date/Time Source Result Type Result - Unit Interpretation Reference Range Comment Feb 15, 2022 [facility] COMPREHENSIVE METABOLIC Spec imen Type: PLASMA 10:00 AM PANEL+MG No comment enter ed. Ordering Provid er: MONICA RODRIGUEZ Report Released Date/Time: Aug 14, 2021 11:15 AM Reporting Lab: [facility] [id number] Performing Lab: [facility] [address] CREATININE 1.1 0.7-1.2 UREA NITROGEN 15 8-26 GLUCOSE 96 74-100 SODIUM 138 136-145 POTASSIUM 4.0 3.5-5.1 CHLORIDE 104 98-107 CO2 26 22-29 CALCIUM 9.6 8.4-10.2 PROTEIN,TOTAL 7.5 6.0-8.3 ALBUMIN 4.0 3.5-5.2 BILIRUBIN, TOTAL 0.8 0.2-1.2 MAGNESIUM 2.0 1.6-2.6 ANION GAP 8 5-15 ALKALINE PHOSPHATASE 62 40-150 ALT/SGPT 13 <55 AST/SGOT 19 <34 CREAT EGFR(CKD-EPI) 70 >60 Feb 15, 2022 10:00 AM [facility] CBC & DIFF Specim en Type: BLOOD Comment: Automa armand Differential Performed Ordering Provid er: MONICA RODRIGUEZ Report Released Date/Time: Aug 14, 2021 11:15 AM Reporting Lab: [facility] [id number] Performing Lab: [facility] [address] WBC 4.33 4.0-11.0 RBC 3.93 L 4.6-6.2 [...] IG(META,MYELO,PRO) 0.5 ABS IMMATURE GRAN 0.02 0-0.1 Advance Directives: All historical and current Section Date Range: From patient's date of to the date document was created. This section includes ALL of a patient's completed or amended CT Advance and Rescinded Directives. The entries below indicate that a directive exists for the patient, but an actual copy is not included with this document. The data comes from all CT facilities. Date Advance Directives Provider Source Mar 12, 2019 ADVANCE DIRECTIVE KYKIARA Gonzalez [facility] Mar 12, 2019 ADVANCE DIRECTIVE DISCUSSION KIARA BRANDT [facility] Encounter Notes: All associated encounter notes This section contains the clinical notes associated to the Encounter. Date/Time Encounter Note(s) Provider Source Jan 17, 2022 12:00 PM PRIMARY CARE SECURE MESSAGING: WALDEMAR BOBO ([facility]) LOCAL TITLE: PRIMARY CARE SECURE MESSAGING STANDARD TITLE: PRIMARY CARE SECURE MESSAGING DATE OF NOTE: JAN 17, 2022@12:00 ENTRY DATE: JAN 17, 2022@12:00:37 AUTHOR: CAITLIN BOBO EXP COSIGNER: URGENCY: STATUS: COMPLETED ------Original Message Sent: 01/17/2022 12:59 PM ET From: CAITLIN BOBO To: SHAWNA IBARRA Subject: Appointment:Appointment Inquiry We received the information from your ER visit [facility]. How are the petersen? Are you doing the wound care twice a day as instructed by the ER? I see they recommended a follow-up appointment w [facility] wound clinic. Would you like us to place a referral to the [facility]? LISSY Pichardo, KENAN [facility] /catia/ Caitlin Bobo RN, KENAN Registered Nurse Signed: 01/17/2022 12:00
--- OUTSIDE RECORDS SUMMARY | 2022-04-21 11:29 | XMS_ITS | Encounter Summary ---
:1945 Author Organization [facility] Address [address] [place] [id number] Support Name Relationship Address Phone TERRELL FORD [...] Number Chen BLUELINK COMPREHEN MAXI Jul 28, [id number] [phone] JAZMIN ELAURENCEU PATIENT TPA SIVE E-O 2006 0 [id number] L MAJOR [facility] STOR EXPRESS PRESCRIPT MAXI Jul 28, KEERTHI [id number] [phone] MARIELOS IBARRA PATIENT SCRIPTS - ION E O 2005 [id number] L SUBROGATIO TURKE N Y [employer] MCR MEDICARE MCR Jul 28, [id number] [phone] KLU DELMERMARIELOS PATIENT (WNR) ADVANTAGE (WNR) 2013 1 89 8 L [employer] MCR MEDICARE MCR Jul 28, [id number] [phone] KLU DELMERMARIELOS PATIENT (WNR) ADVANTAGE (WNR) 2013 1 89 0 L [employer] MCR MEDICARE MCR Jul 28, [id number] [phone] KLU DELMERMARIELOS PATIENT (WNR) ADVANTAGE (WNR) 2013 1 89 2 L Selected Encounter This section includes the information on record at NE for the Encounter. Date/Time Encounter Type Encounter Reason Provider Source Description Jan 17, 2022 11:38 Outpatient [facility] AM Encounter CONSULT IHE Encounter Template Text not used by NE Plan of Treatment: Future Appointments (+ 6 months) and Future Tests (+/- 45 days) The Plan of Treatment section includes future care activities for the patient from all [place] [facility]. This section includes future appointments and future orders which are active, pending orscheduled.Future Appointments This section includes appointments that were scheduled to occur 6 months from the date of the Encounter, up to a maximum of 20 appointments. The data comes from all [place] treatment [facility]. Appointment Date/Time Appointment Type Appointment Facili ty Name Feb 15, 2022 10:15 AM AMBULATORY - NONE [facility] ([facility]) Feb 15, 2022 12:43 PM AMBULATORY - NONE [facility] Feb 22, 2022 02:30 PM AMBULATORY - MEDICINE [facility] Feb 26, 2022 11:00 AM AMBULATORY - PSYCHIATRY [facility] ([facility]) Apr 30, 2022 11:00 AM AMBULATORY - PSYCHIATRY [facility] ([facility]) Jun 25, 2022 09:30 AM AMBULATORY - NONE [facility] ([facility]) Jun 28, 2022 01:00 PM AMBULATORY - MEDICINE [facility] Active, Pending, and Scheduled Orders This section includes a listing of several types of active, pending, and scheduled orders, including clinic medications orders, diagnostic test orders, procedure orders and consult orders; where the start date of the order is 45 days before the date of the Encounter or 45 days after the date of the Encounter. The data comes from all [facility]. Test Date/Time Test Type Test Details Facility Name Feb 27, 2022 08:27 AM Consult Order SLEEP MEDICINE WPAT Cons [facility] Lab Results: +/- 30 days of the encounter This section includes the Chemistry and Hematology Lab Results on record with NE for the patient. Radiology Reports and Pathology Reports are provided separately, in subsequent sections.Lab Results This section contains the Chemistry/Hematology Results that were resulted 30 days before or 30 daysafter the date of the Encounter. Date/Time Source Result Type Result - Unit Interpretation Reference Range Comment Feb 15, 2022 [facility] COMPREHENSIVE METABOLIC Spec imen Type: PLASMA 10:00 AM PANEL+MG No comment enter ed. Ordering Provid er: MONICA RODRIGUEZ Report Released Date/Time: Aug 14, 2021 11:15 AM Reporting Lab: [facility] [id number] Performing Lab: [facility] [address] CREATININE 1.1 0.7-1.2 UREA NITROGEN 15 8-26 GLUCOSE 96 74-100 SODIUM 138 136-145 POTASSIUM 4.0 3.5-5.1 CHLORIDE 104 98-107 CO2 26 22-29 CALCIUM 9.6 8.4-10.2 PROTEIN,TOTAL 7.5 6.0-8.3 ALBUMIN 4.0 3.5-5.2 BILIRUBIN, TOTAL 0.8 0.2-1.2 MAGNESIUM 2.0 1.6-2.6 ANION GAP 8 5-15 ALKALINE PHOSPHATASE 62 40-150 ALT/SGPT 13 <55 AST/SGOT 19 <34 CREAT EGFR(CKD-EPI) 70 >60 Feb 15, 2022 10:00 AM [facility] CBC & DIFF Specim en Type: BLOOD Comment: Rupesha armand Differential Performed Ordering Provid er: MONICA RODRIGUEZ Report Released Date/Time: Aug 14, 2021 11:15 AM Reporting Lab: [facility] [id number] Performing Lab: [facility] [id number] WBC 4.33 4.0-11.0 RBC 3.93 L 4.6-6.2 [...] ALL of a patient's completed or amended NE Advance and Rescinded Directives. The entries below indicate that a directive exists for the patient, but an actual copy is not included with this document. The data comes from all [place] facilities. Date Advance Directives Provider Source Mar 12, 2019 ADVANCE DIRECTIVE KYCarlosKIARA [facility] Mar 12, 2019 ADVANCE DIRECTIVE DISCUSSION KIARA BRANDT [facility] Encounter Notes: All associated encounter notes This section contains the clinical notes associated to the Encounter. Date/Time Encounter Note(s) Provider Source Jan 10, 2022 11:38 AM NONVA NOTE: LOLI COLLAZO [facility] LOCAL TITLE: COMMUNITY CARE-TERRI SELF PRESENTIN G CARE COORD PLAN STANDARD TITLE: NONVA NOTE DATE OF NOTE: JAN 10, 2022@11:38 ENTRY DATE: JAN 17, 2022@11:38:14 AUTHOR: LOLI COLLAZO EXP COSIGNER: URGENCY: STATUS: COMPLETED COMMUNITY CARE-TERRI SELF PRESENTING CARE CO ORD PLAN NOTE Has ADDENDA Emergency Notification Intake Date Presenting to the Facility: Dec Method of Contact: note from PACT RN Blackjack Pit Boss reviewed ECR, no Emergency notification f ound, technical document writer sent Emergency Notification that [facility] staff [facility] on [facility]/10/2022 per note [facility] [place] Address: City: [place] State: [place] Zip Code: Phone : Community Facility Point of Contact: Name: Phone: Chief complaint: finger petersen Primary Diagnosis: Disposition Discharged Date of discharge: Dec Discharge to home /catia/ LOLI COLLAZO RN Utilization Management Signed: 01/17/2022 11:40 01/10/2022 ADDENDUM STATUS: COMPLETED VistA Imaging Scanned Document - Addendum. ER [place] 01/10/2022 dx petersen to multiple fingers dc to home Will scan and import ER Note to this note Please review for any needed f/u or consults /catia/ LOLI COLLAZO RN Utilization Management Signed: 01/17/2022 11:43 Receipt Acknowledged By: 01/17/2022 12:00 /es/ Kylee Chilel RN, [facility] N Registered Nurse 01/17/2022 13:34 /es/ EVANS SMALL [facility] physician 01/17/2022 ADDENDUM STATUS: COMPLETED NonVA record reviewed, VM left for pt, and secur e message sent as follow-up. /es/ Kylee Chilel RN, [facility] Registered Nurse Signed: 01/17/2022 12:01 01/18/2022 ADDENDUM STATUS: COMPLETED [id number] /es/ BOBBY HOYOS [employer] WORK[employer] POWER SHOVEL Signed: 01/18/2022 10:35
--- OUTSIDE RECORDS SUMMARY | 2022-04-21 11:29 | XMS_ITS | Encounter Summary ---
:1945 Author Organization Department [facility] rs Address [address] [place] [address] Support Name Relationship Address Phone LILIANA TERRELL [...] Number Chen BLUELINK COMPREHEN MAXI Jul 28, [id number] [phone] JAZMIN ELAURENCEU PATIENT TPA SIVE E-O 2005 [id number] L MAJOR [facility] ST[facility] EXPRESS PRESCRIPT MAXI Jul 28, KEERTHI [id number] [phone] MARIELOS MARCUM PATIENT SCRIPTS - ION E O 2005 [id number] L SUBROGATIO TURKE N Y [employer] MCR MEDICARE MCR Jul 28, [id number] [phone] KLU DELMERMARIELOS PATIENT (WNR) ADVANTAGE (WNR) 2013 1 89 8 L [employer] MCR MEDICARE MCR Jul 28, [id number] [phone] KLU DELMERMARIELOS PATIENT (WNR) ADVANTAGE (WNR) 2013 1 89 0 L [employer] MCR MEDICARE MCR Jul 28, [id number] [phone] KLU DELMERMARIELOS PATIENT (WNR) ADVANTAGE (WNR) 2013 1 89 2 L Selected Encounter This section includes the information on record at [place] for the Encounter. 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 This section includes future appointments and future orders which are active, pending orscheduled.Future Appointments This section includes appointments that were scheduled to occur 6 months from the date of the Encounter, up to a maximum of 20 appointments. The data comes from all [facility]. Appointment Date/Time Appointment Type Appointment Facili ty Name Feb 26, 2022 11:00 AM AMBULATORY - PSYCHIATRY [facility] ([facility]) Apr 30, 2022 11:00 AM AMBULATORY - PSYCHIATRY [facility] ([facility]) Jun 25, 2022 09:30 AM AMBULATORY - NONE [facility] ([facility]) Jun 28, 2022 01:00 PM AMBULATORY - MEDICINE [facility] Jul 25, 2022 09:45 AM AMBULATORY - MEDICINE [facility] ([facility]) Active, Pending, and Scheduled Orders This [...] from all [facility]. Test Date/Time Test Type Test Details Facility Name Feb 27, 2022 08:27 AM Consult Order SLEEP MEDICINE WPAT Cons [facility] [employer] Con[employer] Choice Lab Results: +/- 30 days of the encounter This section includes the Chemistry and Hematology Lab Results on record with [place] for the patient. Radiology Reports and Pathology Reports are provided separately, in subsequent sections.Lab Results This section contains the Chemistry/Hematology Results that were resulted 30 days before or 30 daysafter the date of the Encounter. Date/Time Source Result Type Result - Unit Interpretation Reference Range Comment Feb 15, 2022 [facility] COMPREHENSIVE METABOLIC Spec imen Type: PLASMA 10:00 AM PANEL+MG No comment enter ed. Ordering Provid er: MONICA RODRIGUEZ Report Released Date/Time: Aug 14, 2021 11:15 AM Reporting Lab: [facility] [id number] Performing Lab: [facility] [id number] CREATININE 1.1 0.7-1.2 UREA NITROGEN 15 8-26 GLUCOSE 96 74-100 SODIUM 138 136-145 POTASSIUM 4.0 3.5-5.1 CHLORIDE 104 98-107 CO2 26 22-29 CALCIUM 9.6 8.4-10.2 PROTEIN,TOTAL 7.5 6.0-8.3 ALBUMIN 4.0 3.5-5.2 BILIRUBIN, TOTAL 0.8 0.2-1.2 MAGNESIUM 2.0 1.6-2.6 ANION GAP 8 5-15 ALKALINE PHOSPHATASE 62 40-150 ALT/SGPT 13 <55 AST/SGOT 19 <34 CREAT EGFR(CKD-EPI) 70 >60 Feb 15, 2022 10:[address] [facility] CBC & DIFF Specim en Type: BLOOD Comment: Automa armand Differential Performed Ordering Provid er: MONICA RODRIGUEZ Report Released Date/Time: Aug 14, 2021 11:15 AM Reporting Lab: [facility] [id number] Performing Lab: [facility] [id number] WBC 4.33 4.0-11.0 RBC 3.93 L 4.6-6.2 [...] ALL of a patient's completed or amended [place] Advance and Rescinded Directives. The entries below indicate that a directive exists for the patient, but an actual copy is not included with this document. The data comes from all [place] facilities. Date Advance Directives Provider Source Mar 12, 2019 ADVANCE DIRECT[address]T [facility] Mar 12, 2019 ADVANCE DIRECTIVE DISCUSSION KIARA BRANDT [facility] Encounter Notes: All associated encounter notes This section contains the clinical notes associated to the Encounter. Date/Time Encounter Note(s) Provider Source Feb 22, 2022 02:40 PM HEMATOLOGY AND ONCOLOGY ATTENDING NOTE: MONICA IGLESIAS [facility] LOCAL TITLE: HEME/ONC CLINIC NOTE STANDARD TITLE: HEMATOLOGY AND ONCOLOGY ATTENDIN G NOTE DATE OF NOTE: FEB 22, 2022@14:40 ENTRY DATE: FEB 22, 2022@14:40:14 AUTHOR: MONICA RODRIGUEZ EXP COSIGNER: URGENCY: STATUS: COMPLETED Date of service: 02/22/22 phone/VVC visit due to Covid-19 Pandemic understands limitations of phone/VVC appointments and consents to proceed. Reason for visit (CC): HHT Treatment/Plan: surveillance HPI: Pt is doing fairly well overall. He does quintana ve a couple of concerns on todays visit. he reports having slowly worsening fatigue. Just feels like he gets more worn out than he should. He is wonderi ng why he might be more fatigued. He also thinks his libido is down as w ell. he is still very active and keeps very busy. He did think he has had melissa e more nose bleeds of recent. Says he had a 'pretty good o ne' of recent. Occ gums bleed. No blood in stool or urine. 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 On 09/14/15 he was admitted to [facility] for a left leg DVT. In July, [...] was discussed with an oncolo gist at [facility] at that time and an IVC filter was not recommmended. He was discharged o n 09/17/15. He was admitted to [facility] on 09/24/15 for right-sided chest pain. CT [...] HHT - Hereditary hemorrhagic telangiectasia (SNOMED CT [id number]) 3. Erectile dysfunction (SNOMED CT [id number]) 4. Ocular migraine 5. Iron deficiency anemia [...] Test Name Result Units Re f Range 02/15/2022 10:00 BLOOD !! WBC 4.33 K/cmm 4.0 - 1 1.0 02/15/2022 10:00 BLOOD !! HGB 13.2 L g/dL 13.5 - 17.9 02/15/2022 10:00 BLOOD !! HCT 39.1 L % 41 - 54 02/15/2022 10:00 BLOOD !! MCV 99.5 fL 80 - 100 02/15/2022 10:00 BLOOD !! PLT 270 K/cmm 150 - 40 0 02/15/2022 10:00 BLOOD !! ABS LYMPH 0.98 L K/cmm 1.0 - 4.0 02/15/2022 10:00 BLOOD !! ABS NEUT 2.81 K/cmm 2. 0 - 7.7 CMP (calcium, [...] his hgb have remained w ell since. He recently had some more nose bleeds of recent that were more substantial. so he wasn't too suprised that his hgb was slightly lower. He is only taking one iron a day. unfortunately we did not get an iron panel this draw, but he is likely lower. - he will increase his iron tabs to BID - FU in 4 months - to see if hgb improves, pt i s very familar with his disease and what to look for, he will reach out if new or different concerns 2. fatigue and worsening lab lucas- do not think it is related to his HHT per say, his hgb is only slightly lower than previous, so don't think it is related to that. We did talk about othe r etiology, could check TSH (even though last check was wnl), could also check B 12 and folate, we also talked about sleep study- he lives alone, so not sure if he snores but certai nly is possible and would be amendible to this. Could also consider c hecking testosterone given the concern for low labido. Told pt he s hould discuss this with pcp, he was appreciative of thoughts. fyi to pcp. Performance Status (ECOG):[address] Limon 30minutes spent on the phone in care and communication, reviewing chart history, reviewing labs and imaging and medications, docu mentaion in EMR Education Patient on Treatment Plan:Patient falguni cates readiness to learn, verbalizes understanding, agreement and satisfaction with the treatment pl an. Denies further questions. /catia/ MONICA RODRIGUEZ Physician Interventional Radiology Tech Signed: 02/22/2022 15:45 Receipt Acknowledged By: * AWAITING SIGNATURE * EVANS SMALL
--- OUTSIDE RECORDS SUMMARY | 2022-04-21 11:29 | XMS_ITS | Encounter Summary ---
:1945 Author Organization [facility] Address [address] [place] [id number] Support Name Relationship Address Phone LILIANA TERRELL [...] Number Chen BLUELINK COMPREHEN MAXI Jul 28, [id number] [phone] JAZMIN ELAURENCEU PATIENT TPA SIVE E-O 2005 [id number] [phone] L MAJOR [facility] STOR EXPRESS PRESCRIPT MAXI Jul 28, KEERTHI [id number] [phone] MARIELOS IBARRA PATIENT SCRIPTS - ION E O 2005 [id number] L SUBROGATIO TURKE N Y [employer] MCR MEDICARE MCR Jul 28, [id number] [phone] KLU DELMERMARIELOS PATIENT (WNR) ADVANTAGE (WNR) 2013 1 89 8 L [employer] MCR MEDICARE MCR Jul 28, [id number] [phone] KLU DELMERMARIELOS PATIENT (WNR) ADVANTAGE (WNR) 2013 1 89 0 L [employer] MCR MEDICARE MCR Jul 28, [id number] [phone] KLU DELMERMARIELOS PATIENT (WNR) ADVANTAGE (WNR) 2013 1 89 2 L Selected Encounter This section includes the information on record at [place] for the Encounter. Date/Time Encounter Type Encounter Reason Provider Source Description Feb 15, 2022 12:43 Outpatient ADMIN PAT ACTIVTIES ROBYN POZO NTHIA L PM Encounter (MASNONCT) IHE Encounter Template Text not used by [place] Plan of Treatment: Future Appointments (+ 6 months) and Future Tests (+/- 45 days) The Plan of Treatment section includes future care activities for the patient from all [place] treatmentfacilities. This section includes future appointments and future orders which are active, pending orscheduled.Future Appointments This section includes appointments that were scheduled to occur 6 months from the date of the Encounter, up to a maximum of 20 appointments. The data comes from all [facility]. Appointment Date/Time Appointment Type Appointment Facili ty Name Feb 22, 2022 02:30 PM AMBULATORY - MEDICINE [facility] Feb 26, 2022 11:00 AM AMBULATORY - PSYCHIATRY [facility] ([facility]) Apr 30, 2022 11:00 AM AMBULATORY - PSYCHIATRY [facility] ([facility]) Jun 25, 2022 09:30 AM AMBULATORY - NONE [facility] ([facility]) Jun 28, 2022 01:00 PM AMBULATORY MEDICINE [facility] Jul 25, 2022 09:45 AM AMBULATORY MEDICINE [facility] ([facility]) Active, Pending, and Scheduled Orders This section includes a listing of several types of active, pending, and scheduled orders, including clinic medications orders, diagnostic test orders, procedure orders and consult orders; where the start date of the order is 45 days before the date of the Encounter or 45 days after the date of the Encounter. The data comes from all [facility]. Test Date/Time Test Type Test Details Facility Name Feb 27, 2022 08:27 AM Consult Order SLEEP MEDICINE WPAT Cons [facility] [employer] Developer[employer] Choice Lab Results: +/- 30 days of the encounter This section includes the Chemistry and Hematology Lab Results on record with [place] for the patient. Radiology Reports and Pathology Reports are provided separately, in subsequent sections.Lab Results This section contains the Chemistry/Hematology Results that were resulted 30 days before or 30 daysafter the date of the Encounter. Date/Time Source Result Type Result - Unit Interpretation Reference Range Comment Feb 15, 2022 10:00 AM [facility] CBC & DIFF Specim en Type: BLOOD Comment: Automa armand Differential Performed Ordering Provid er: MONICA RODRIGUEZ Report Released Date/Time: Aug 14, 2021 11:15 AM Reporting Lab: [facility] [id number] Performing Lab: [facility] [address] WBC 4.33 4.0-11.0 RBC 3.93 L 4.6-6.2 [...] IMMATURE GRAN 0.02 0-0.1 Feb 15, 2022 [facility] COMPREHENSIVE METABOLIC Spec imen Type: PLASMA 10:00 AM PANEL+MG No comment enter ed. Ordering Provid er: MONICA RODRIGUEZ Report Released Date/Time: Aug 14, 2021 11:15 AM Reporting Lab: [facility] [address] Performing Lab: [facility] [address] CREATININE 1.1 0.7-1.2 UREA NITROGEN 15 8-26 [...] ALL of a patient's completed or amended [place] Advance and Rescinded Directives. The entries below indicate that a directive exists for the patient, but an actual copy is not included with this document. The data comes from all [place] facilities. Date Advance Directives Provider Source Mar 12, 2019 ADVANCE DIRECTIVE KIARA BRANDT [facility] Mar 12, 2019 ADVANCE DIRECTIVE DISCUSSION KIARA BRANDT [facility] Encounter Notes: All associated encounter notes This section contains the clinical notes associated to the Encounter. Date/Time Encounter Note(s) Provider Source Feb 13, 2022 12:44 PM NONVA NOTE: BOBBY HOYOS [facility] LOCAL TITLE: COMMUNITY CARE-TERRI SELF PRESENTIN G CARE COORD PLAN STANDARD TITLE: NONVA NOTE DATE OF NOTE: FEB 13, 2022@12:44 ENTRY DATE: FEB 15, 2022@12:45:07 AUTHOR: BOBBY HOYOS EXP COSIGNER: URGENCY: STATUS: COMPLETED COMMUNITY CARE-TERRI SELF PRESENTING CARE CO ORD PLAN NOTE Has ADDENDA Emergency Notification Intake Date Presenting to the Facility: Jan Method of Contact: Notified from [employer] worklist Notification ID: [id number] [facility] Referral #: [facility] Name: Hospital: [facility] Address: [address] City: [place] State: [place] Zip Code: [address] Phone : [facility] Facility Point of Contact: Name: BE COOK Chief complaint: LACERATION Primary Diagnosis: Disposition Unknown at time of intake note entry /catia/ BOBBY HOYOS MEDICAL UNIFORM DESIGNER Signed: 02/15/2022 12:46 Receipt Acknowledged By: 02/21/2022 10:54 /es/ SAUL MCNEAL RN UTILIZATION MANAGEMENT 02/21/2022 ADDENDUM STATUS: COMPLETED 02/13/22 COSIGNING THE [facility] RN TO THIS NOTE REQUYani RODRIGUEZ RECORDS WILL SEND TO SCANNING ONCE RECEIVED REQUESTED RECORDS FROM ALLISON BURNETTE. /catia/ SAUL MCNEAL RN UTILIZATION MANAGEMENT Signed: 02/21/2022 10:55 Receipt Acknowledged By: 02/22/2022 12:02 /catia/ YVONNE SPRAGUE, RN, BSN Staff Nurse for CAITLIN BOBO 02/22/2022 ADDENDUM STATUS: COMPLETED Called . [place] states it is healed and doesn't need follow up. No further concerns. /es/ YVONNE SPRAGUE, RN, BSN Staff Nurse Signed: 02/22/2022 12:03 02/13/2022 ADDENDUM STATUS: COMPLETED [facility] Scanned Document - Addendum. 02/13/22 [place] [facility] seen in the ED recor ds are attached to this note please review for plan of care and follow up as needed. This nurse scanned records in 02/25/22 /es/ SAUL MCNEAL RN UTILIZATION MANAGEMENT Signed: 02/25/2022 14:12 Receipt Acknowledged By: 02/25/2022 14:15 /es/ EVANS SMALL [facility] physician * AWAITING SIGNATURE * CAITLIN BOBO
[2022-04-21] MEDS: lidocaine HCL 2 % JELLY (TOP) STERILE 6 ML UR (11:30)
--- NOTE | 2022-04-21 11:30 | ED.NURSE ---
did remove #18 fr gutierrez and replaced with #22- 3 way irrigation catheter. did use a uro jet. had 600 ml of bloody urine from initial catheter that was placed. 2000 ml of irrigation fluid hung.
--- OUTSIDE RECORDS SUMMARY | 2022-04-21 11:30 | XMS_ITS | Encounter Summary ---
:1945 Author Organization [facility] Address [address] [place] [id number] Support Name Relationship Address Phone LILIANA TERRELL [...] Number Chen BLUELINK COMPREHEN MAXI Jul 28, [id number] [phone] JAZMIN ELAURENCEU PATIENT TPA SIVE E-O [phone] [id number] [phone] L [facility]OR [facility] EXPRESS PRESCRIPT MAXI Jul 28, KEERTHI [id number] [phone] MARIELOS IBARRA PATIENT SCRIPTS - ION E O 2005 [id number] L SUBROGATIO TURKE N Y HUMANA MCR MEDICARE MCR Jul 28, [id number] [phone] KLU DELMERMARIELOS PATIENT (WNR) ADVANTAGE (WNR) 2013 1 89 8 L [employer] MCR MEDICARE MCR Jul 28, [id number] [phone] KLU DELMERMARIELOS PATIENT (WNR) ADVANTAGE (WNR) 2013 1 89 0 L [employer] MCR MEDICARE MCR Jul 28, [id number] [phone] KLU DELMERMARIELOS PATIENT (WNR) ADVANTAGE (WNR) 2013 1 89 2 L Selected Encounter This section includes the information on record at [place] for the Encounter. Date/Time Encounter Type Encounter Reason Provider Source Description Feb 26, 2022 PSYTX W PT 45 MENTAL HEALTH ICD-10-CM F41.9 NINA TRIPP 11:00 AM MINUTES CLINIC - IND Anxiety disorder, NE E unspecified with Provider Comments: Exposure to combat ([facility] [id number]) IHE Encounter Template Text not used by [place] Assessments - Encounter Diagnoses This section includes the primary and secondary diagnoses documented for the Encounter. Date/Time Primary/Secondary Diagnosis Name Provider Source Diagnosis Feb 27, 2022 PRIMARY Anxiety disorder, TEJAS TRIPP R 06:06 AM unspecified NE E ([facility]) Plan of Treatment: Future Appointments (+ 6 months) and Future Tests (+/- 45 days) The Plan of Treatment section includes future care activities for the [facility] This section includes future appointments and future orders which are active, pending orscheduled.Future Appointments This section includes appointments that were scheduled to occur 6 months from the date of the Encounter, up to a maximum of 20 appointments. The data comes from all [facility]. Appointment Date/Time Appointment Type Appointment Facili ty Name Apr 30, 2022 11:00 AM AMBULATORY - PSYCHIATRY [facility] ([facility]) Jun 25, 2022 09:30 AM AMBULATORY - NONE [facility] ([facility]) Jun 28, 2022 01:00 PM AMBULATORY - MEDICINE [facility] Jul 25, 2022 09:45 AM AMBULATORY - MEDICINE [facility] ([facility]) Active, Pending, and Scheduled Orders This section includes a listing of several types of active, pending, and scheduled orders, including clinic medications orders, diagnostic test orders, procedure orders and consult orders; where the start date of the order is 45 days before the date of the Encounter or 45 days after the date of the Encounter. The data comes from all [facility]. Test Date/Time Test Type Test Details Facility Name Feb 27, 2022 08:27 AM Consult Order SLEEP MEDICINE WPAT Cons [facility] Lab Results: +/- 30 days of the encounter This section includes the Chemistry and Hematology Lab Results on record with [place] for the patient. Radiology Reports and Pathology Reports are provided separately, in subsequent sections.Lab Results This section contains the Chemistry/Hematology Results that were resulted 30 days before or 30 daysafter the date of the Encounter. Date/Time Source Result Type Result - Unit Interpretation Reference Range Comment Feb 15, 2022 [facility] COMPREHENSIVE METABOLIC Spec imen Type: PLASMA 10:00 AM PANEL+MG No comment enter ed. Ordering Provid er: MONICA RODRIGUEZ Report Released Date/Time: Aug 14, 2021 11:15 AM Reporting Lab: [facility] [id number] Performing Lab: [facility] [id number] CREATININE 1.1 0.7-1.2 UREA NITROGEN 15 8-26 GLUCOSE 96 74-100 SODIUM 138 136-145 POTASSIUM 4.0 3.5-5.1 CHLORIDE 104 98-107 CO2 26 22-29 CALCIUM 9.6 8.4-10.2 PROTEIN,TOTAL 7.5 6.0-8.3 ALBUMIN 4.0 3.5-5.2 BILIRUBIN, TOTAL 0.8 0.2-1.2 MAGNESIUM 2.0 1.6-2.6 ANION GAP 8 5-15 ALKALINE PHOSPHATASE 62 40-150 ALT/SGPT 13 <55 AST/SGOT 19 <34 CREAT EGFR(CKD-EPI) 70 >60 Feb 15, 2022 10:00 AM [facility] CBC & DIFF Specim en Type: BLOOD Comment: Automa armand Differential Performed Ordering Provid er: MONICA RODRIGUEZ Report Released Date/Time: Aug 14, 2021 11:15 AM Reporting Lab: [facility] [id number] Performing Lab: [facility] [id number] WBC 4.33 4.0-11.0 RBC 3.93 L 4.6-6.2 [...] IG(META,MYELO,PRO) 0.5 ABS IMMATURE GRAN 0.02 0-0.1 Social History: Smoking Status (Most current) and Tobacco Use (All prior to encounter date) This section includes the most current, and the historical, smoking and tobacco-related health factors from the [place] facility where the Encounter took place.Current Smoking Status This section includes the most current smoking, or tobacco-related health factor, from the [place] facility where the Encounter took place. Date/Time Current Smoking Status Comment Facility Jul 26, 2021 10:15 AM VA-TOBACCO QUIT 15 YRS OR MORE [facility] ([facility]) Tobacco Use History This section includes a history of the smoking, or tobacco- related health factors, that were collected on or before the date of the Encounter. The data comes from the [place] facility where the Encounter took place. Date/Time Smoking Status/Tobacco Use Comment [facility] it Jul 26, 2021 10:15 AM VA-TOBACCO QUIT 15 YRS OR MORE [facility] ([facility]) Jul 18, 2020 01:45 PM VA-TOBACCO FORMER USER [facility] ([facility]) Jul 18, 2020 01:45 PM VA-TOBACCO QUIT 15 YRS OR MORE [facility] ([facility]) Oct 20, 2018 09:43 AM VA-TOBACCO FORMER USER [facility] ([facility]) Oct 20, 2018 09:43 AM VA-TOBACCO QUIT 15 YRS OR MORE [facility] ([facility]) Aug 29, 2017 10:26 AM FORMER TOBACCO USER 7Y OR GREATER [facility] ([facility]) Mar 18, 2016 10:08 AM FORMER TOBACCO USER 7Y OR GREATER [facility] ([facility]) Jun 06, 2015 12:30 PM FORMER TOBACCO USER 7Y OR GREATER [facility] ([facility]) Apr 08, 2014 09:02 AM FORMER TOBACCO USER 7Y OR GREATER [facility] ([facility]) Advance Directives: All historical and current Section Date Range: From patient's date of to the date document was created. This section includes ALL of a patient's completed or amended [place] Advance and Rescinded Directives. The entries below indicate that a directive exists for the patient, but an actual copy is not included with this document. The data comes from all [place] facilities. Date Advance Directives Provider Source Mar 12, 2019 ADVANCE DIRECTIVE KIARA BRANDT [facility] Mar 12, 2019 ADVANCE DIRECTIVE DISCUSSION KIARA BRANDT [facility] Encounter Notes: All associated encounter notes This section contains the clinical notes associated to the Encounter. Date/Time Encounter Note(s) Provider Source Feb 26, 2022 11:00 AM MENTAL HEALTH NOTE: BRYAN TRIPP (CB) LOCAL TITLE: MH PROGRESS NOTE STANDARD TITLE: MENTAL HEALTH NOTE DATE OF NOTE: FEB 26, 2022@11:00 ENTRY DATE: FEB 27, 2022@06:03:54 AUTHOR: BRYAN TRIPP COSIGNER: URGENCY: STATUS: COMPLETED MH PROGRESS NOTE Has ADDENDA Individual Psychotherapy: 50 minutes vvc Informed consent: patient reviewed purpose of th erapy, privacy protections and limitations at his initial visit with this write r. He consented to care face to face, and then vvc as well during the pandemic. Today is is via vvc from his home. S/O - Patient on time for session. Patient and p zora explored patient's sense of increased acceptance and appreciation o f other peoples messiness and noting how as he sees that in others, there is more room for him to truly accept it in himself. Patient reports ongoing argueta ccessful navigation of some challenging interpersonal situations in his life , and reflecting today on how people experience him (i.e., a good listener, wa rm, welcoming), and how this is true across his life. Handouts: none today Problem for which patient treated today: Exposure to combat ([facility] [id number]) - Anxiety dis order, unspecified (ICD-10-CM F41.9) (Primary) Mental Status: Mood: Euthymic Affect: Appropriate, Full-Range Speech: Normal rate, Normal rhythm, Normal volum e Thought Content: Normal Thought Processes: Logical, Goal Oriented Suicidality: Absent Homicidality: Absent Hallucinations: Absent Delusions: Absent Oriented: Fully Oriented Judgement: good Insight: good Progress Toward Goals: overall patient doing wel l, using skills with good effect P/ update to treatment plan - Continue individua l psychotherapy, f/u in early April /catia/ BRYAN TRIPP, PHD, LP PSYCHOLOGIST Signed: 02/27/2022 06:06 02/27/2022 ADDENDUM STATUS: COMPLETED Brief conversation today with patient around sle ep apnea symptoms, as patient noted this was discussed in a recent visit and he was encouraged to discuss this with primary care. Due to this provider's experi ence with sleep medicine, we evaluated patient's symptoms which do appear to be consistent with sleep apnea. Consult sent requesting work-up for this. /catia/ BRYAN TRIPP, PHD, LP PSYCHOLOGIST Signed: 02/27/2022 06:09
--- OUTSIDE RECORDS SUMMARY | 2022-04-21 11:30 | XMS_ITS | Continuity of Care Document ---
:1945 Author Organization [facility] Address [address] [address] [place] [address] Phone Care Team Providers Name Role Phone Link Jaret MCCLELLAN Unavailable Unavailable Advance Directives Directive Yes / No Effective Date File Name No Information Encounters Encounter Practice Location Reason(s) Diagnoses Date Provider Provide rs Description For Visit Copied on Encounter [facility] [place] No Mar-0 Link Referring [facility] Information 7 aJret. Provider: [facility], [address] Referral [address] [address], [address] [place], [place], [address], [id number], [facility], [place], tel:[phone] , . [phone] Family History Family Member Type Diagnosis Age At Onset No Information Payers Payer name Insurance type Covered democrat ID Authorization(s ) No Information Social History [...]
[2022-04-21 11:34] LABS: Slide Review Reflex No
[2022-04-21 11:36] LABS: Appearance Urine Cloudy (Clear); Bilirubin Urine Negative (Negative); Blood Urine 3+ (Negative); Color Urine Red (Yellow); Glucose Urine Negative (Negative); Ketones Urine Negative (Negative); Leukocyte Esterase Urine Negative (Negative); Nitrite Urine Negative (Negative); Protein Urine 3+ (Negative); Specific Gravity Urine 1.015 (1.000-1.030); Urobilinogen Urine 0.2 (0.2-1.0); pH Urine 8.5 (5.0-8.5)
[2022-04-21 11:49] LABS: RBC Urine >100 (0-2); Squamous Epithelial Cell Urine Few (None-Few); WBC Urine 0-2 (0-5)
--- NOTE | 2022-04-21 12:07 | ED_ITS ---
HPI - General Adult General Chief complaint: Urogenital Problems, Male Stated complaint: Blood in urine Time Seen by Provider: 04/21/22 10:51 Source: patient Mode of arrival: ambulatory Limitations: no limitations History of Present Illness HPI narrative: 76 year male coming in today concerned about bloody urine. States he woke up this morning and blood was coming out with his urine. He denies any dizziness, chest pain or shortness of breath. He denies recent pain with urination aside from this morning. He states that after 730 after he urinated he has not been able to urinate since although he does feel the need to go. He denies any diarrhea. No nausea or vomiting. Denies this ever happening to him before. Does have history of BPH for which he is on Flomax and finasteride. Denies taking any blood thinners. Related Data Home Medications Medication Instructions Recorded Confirmed hydrochlorothiazide PO 02/13/22 tamsulosin 0.4 mg capsule (Flomax) 0.4 mg PO DAILY 02/13/22 02/13/22 finasteride 1 mg tablet 1 mg PO DAILY 04/21/22 04/21/22 Previous Rx's Medication Instructions Recorded sulfamethoxazole 800 1 tab PO BID 7 days #14 tabs 04/21/22 mg-trimethoprim 160 mg tablet (Bactrim DS) Allergies Allergy/AdvReac Type Severity Reaction Status Date / Time citalopram Allergy Unknown Verified 02/13/22 10:28 sertraline Allergy Unknown Verified 02/13/22 10:28 Review of Systems Status of ROS: Reports: 10 or more systems reviewed and unremarkable except as noted in History and below PFSH PFS Medical History BPH (benign prostatic hyperplasia) Hypertension Surgical History History of cholecystectomy Social History Smoking Status: Smoker, status unknown Do you use any of these nicotine containing products: None Second hand tobacco smoke exposure: No How often do you have a drink containing alcohol: 4 or more times a week How many standard drinks containing alcohol do you have on a typical day: 3 or 4 How often do you have six or more drinks on one occasion: Never AUDIT-C Alcohol total score: 5 Non-prescribed substance use: denies use service: No Exam Narrative: Exam Narrative: Well-nourished well-developed patient in no acute distress. Alert and oriented. Answers questions appropriately. Mood and affect are appropriate. Thoughts are goal oriented and rational. No tangential or magical thinking noted. Patient speaks in full sentences without needing to catch their breath. HEENT: Normocephalic atraumatic. Pupils are equally round reactive to light. Extraocular muscles are intact. Conjunctivae are moist without any icterus noted. Moist mucous membranes. Cardiovascular: Heart is regular rate and rhythm S1 and S2 are present. Lungs: Clear to auscultation bilaterally no wheezes rhonchi or rales are appreciated. Patient takes deep breaths without any discomfort. Abdomen: Soft and nontender with normal bowel sounds. He does have a slight fullness in the suprapubic region that is uncomfortable. Extremities: Bilateral lower extremities are without edema. Normal DP and PT pulses. Skin: Well perfused without any obvious rashes. : Normal external male genitalia. Const: Vital Signs, click to edit/add: Vital Signs - 24 hr 04/21/22 10:43 04/21/22 13:50 Temperature 97.6 F 98.5 F Pulse Rate [Right Pulse Oximeter] 61 57 L Respiratory Rate 18 20 Blood Pressure [Ri ght Upper Arm] 167/78 H 138/82 Pulse Oximetry 97 97 Oxygen Delivery Me thod Room Air Room Air Course Course Hospital Course: Patient urinated upon arrival, urine was few mL of bright red blood and blood clots. Corona was placed and 600 mL of urine was obtained, gross hematuria present. Corona with CBI was started. CBC was consistent with hematuria, no evidence of infection present. Hemoglobin just slightly low at just over 12. After 3 hours of of CBI, urine continued to be red in color. I consulted with Dr. Dela Cruz, urology [facility], who recommended overnight CBI and a CT urogram. If he cleared up by the morning we could stop CBI, keep the Corona in place and have him follow-up with urology as an outpatient however if the urine continued to be red in color he recommended transfer to a hospital with Urology capability. Ideally transfer to a hospital with Urology capability would be our 1st step however we tried several major hospitals with this capability ([facility], [facility], [facility], [place], [place]) and all were full with no bed availability. Vital Signs Vital signs: Initial Vital Signs Temperature 97.6 F 04/21/22 10:43 Temperature Source Temporal Artery Scan 04/21/22 10:43 Pulse Rate 61 04/21/22 10:43 Pulse Strength 0+ Absent 04/21/22 10:43 Respiratory Rate 18 04/21/22 10:43 Blood Pressure 167/78 H 04/21/22 10:43 Blood Pressure Mean 107 04/21/22 10:43 Blood Pressure Position Sitting 04/21/22 10:43 Pulse Oximetry 97 04/21/22 10:43 Oxygen Delivery Method 04/21/22 10:43 Vital Signs Temperature 97.6 F 04/21/22 10:43 Pulse Rate 61 04/21/22 10:43 Respiratory Rate 18 04/21/22 10:43 Blood Pressure 167/78 H 04/21/22 10:43 Pulse Oximetry 97 04/21/22 10:43 Oxygen Delivery Method 04/21/22 10:43 Temperature 98.5 F 04/21/22 13:50 Pulse Rate 57 L 04/21/22 13:50 Respiratory Rate 20 04/21/22 13:50 Blood Pressure 138/82 04/21/22 13:50 Pulse Oximetry 97 04/21/22 13:50 Oxygen Delivery Method 04/21/22 13:50 Medical Decision Making MDM Narrative Medical decision making narrative: 76-year-old male with hematuria unclear ideology. Patient will be admitted with CBI. Plan per above. CT urogram results pending at time of dictation. Medical Records Medical records reviewed: Yes I reviewed the patient's medical records Lab Data Lab results reviewed: Yes I reviewed the patient's lab results Labs: Lab Results 04/21/22 04/21/22 04/21/22 Range/Units 11:02 11:24 14:07 WBC 4.86 (4.50-11.00) K/uL RBC 3.69 L (4.30-5.90) m/uL Hgb 12.7 L (13.5-17.5) gm/dL Hct 37.6 (37.0-53.0) % MCV 102 H (80-100) fL MCH 34 (26-34) pg MCHC 34 (32-36) gm/dL RDW Coeff of Ziggy 14.1 (11.5-15.5) % Plt Count 252 (140-440) K/uL Neut % (Auto) 71.4 (42.0-72.0) % Lymph % (Auto) 17.1 L (20-44) % Smith % (Auto) 9.9 (0.0-11.0) % Eos % (Auto) 1.0 (0.0-7.0) % Baso % (Auto) 0.4 (0.0-3.0) % Neut # (Auto) 3.47 (1.7-7.0) K/uL Lymph # (Auto) 0.80 L (0.90-2.90) K/uL Smith # (Auto) 0.50 (0.00-0.90) K/UL Eos # (Auto) 0.05 (0.00-0.50) K/uL Baso # (Auto) 0.02 (0.00-0.30) K/uL Abs Immat Gran (auto) 0.01 (0.00-0.30) K/uL Sodium 137 (135-149) mmol/L Potassium 3.8 (3.6-5.1) mmol/L Chloride 103 (96-114) mmol/L Carbon Dioxide 26 (20-32) mmol/L BUN 14 (7-30) mg/dL Creatinine 1.0 (0.5-1.5) mg/dL Estimated Creat Clear 63.83 Estimated GFR 78 ml/min Glucose 100 (60-115) mg/dL Calcium 9.6 (8.4-10.6) mg/dL Urine Color Red A (Yellow) Urine Appearance Cloudy A (Clear) Urine pH 8.5 (5.0-8.5) Ur Specific Freedom 1.015 (1.000-1.030) Urine Protein 3+ A (Negative) Urine Glucose (UA) Negative (Negative) Urine Ketones Negative (Negative) Urine Blood 3+ A (Negative) Urine Nitrite Negative (Negative) Urine Bilirubin Negative (Negative) Urine Urobilinogen 0.2 (0.2-1.0) Ur Leukocyte Esterase Negative (Negative) Urine RBC >100 A (0-2) Urine WBC 0-2 (0-5) Ur Squamous Epith Cells Few (None-Few) Urine Bacteria None (None) SARS-CoV-2 (PCR) (Negative) 04/21/22 Range/Units 14:16 WBC (4.50-11.00) K/uL RBC (4.30-5.90) m/uL Hgb (13.5-17.5) gm/dL Hct (37.0-53.0) % MCV (80-100) fL MCH (26-34) pg MCHC (32-36) gm/dL RDW Coeff of Ziggy (11.5-15.5) % Plt Count (140-440) K/uL Neut % (Auto) (42.0-72.0) % Lymph % (Auto) (20-44) % Smith % (Auto) (0.0-11.0) % Eos % (Auto) (0.0-7.0) % Baso % (Auto) (0.0-3.0) % Neut # (Auto) (1.7-7.0) K/uL Lymph # (Auto) (0.90-2.90) K/uL Smith # (Auto) (0.00-0.90) K/UL Eos # (Auto) (0.00-0.50) K/uL Baso # (Auto) (0.00-0.30) K/uL Abs Immat Gran (auto) (0.00-0.30) K/uL Sodium (135-149) mmol/L Potassium (3.6-5.1) mmol/L Chloride (96-114) mmol/L Carbon Dioxide (20-32) mmol/L BUN (7-30) mg/dL Creatinine (0.5-1.5) mg/dL Estimated Creat Clear Estimated GFR ml/min Glucose (60-115) mg/dL Calcium (8.4-10.6) mg/dL Urine Color (Yellow) Urine Appearance (Clear) Urine pH (5.0-8.5) Ur Specific Freedom (1.000-1.030) Urine Protein (Negative) Urine Glucose (UA) (Negative) Urine Ketones (Negative) Urine Blood (Negative) Urine Nitrite (Negative) Urine Bilirubin (Negative) Urine Urobilinogen (0.2-1.0) Ur Leukocyte Esterase (Negative) Urine RBC (0-2) Urine WBC (0-5) Ur Squamous Epith Cells (None-Few) Urine Bacteria (None) SARS-CoV-2 (PCR) Negative SARS-CoV-2 (Negative) Discharge Plan Discharge Clinical Impression: Hematuria Patient Disposition: Admitted As Inpatient Condition: Stable
--- NOTE | 2022-04-21 12:12 | ED.NURSE ---
dr winslow was in and cbi is infusing. has had approx 1000 ml of ns infused. urine is pink color. will continue to irrigate.
--- NOTE | 2022-04-21 13:48 | CRLHL7_ITS ---
For Patients: As a result of the 21st Century Cures Act, medical imaging exams and procedure reports are released immediately into your electronic medical record. You may view this report before your referring provider. If you have questions, please contact your health care provider. HISTORY: Hematuria. TECHNIQUE: Initial noncontrast CT abdomen and pelvis followed by intravenous contrast enhanced CT of the abdomen and pelvis. Multi phase postcontrast imaging. 95 mL Isovue-370 intravenous contrast administered. COMPARISON: No prior. FINDINGS: There is no renal or ureteral calculus. No calculus within the urinary bladder which is decompressed by a catheter. The multiple pelvic calcifications most likely represent phleboliths. There are sub cm low-density renal lesions bilaterally which are too small to definitively characterize though which may reflect small cysts. There is no definite enhancing renal mass. No hydronephrosis. No mass is seen involving the renal collecting systems or contrast opacified portions of the ureters on the excretory phase images. Note that the distal left ureter is incompletely opacified by contrast. There is some material within the urinary bladder noted on the excretory phase images which may reflect the presence of hemorrhage. - No focal liver parenchymal abnormality. No biliary ductal dilatation. Cholelithiasis is present. Spleen size is within normal limits. The adrenal glands are normal. There is no focal pancreatic abnormality. - No small bowel obstruction. No diverticulitis or definite colitis. - No fluid collection or free air. - Atherosclerotic changes of the abdominal aorta without aneurysm. - The evaluation of the lung bases demonstrates presence of a few pulmonary micro nodules. For example, 4 mm micro nodule is noted on image #16 of series 2. 2-3 mm micro nodule image #12 series 2. - Degenerative changes of the spine. No acute fractures. IMPRESSION: 1. Material within the urinary bladder noted on the excretory phase images which may reflect intraluminal hemorrhage. The urinary bladder is otherwise decompressed by a Corona catheter. 2. No urinary calculi. 3. A few sub cm low-density renal lesions which are too small to characterize though may reflect small cysts. No definite solid enhancing renal mass. 4. No mass involving the renal collecting systems or contrast opacified portions of the ureters. 5. Cholelithiasis. 6. A few pulmonary micro nodules. If patient is high risk, follow-up examination could be performed in 12 months based on Fleischner Society guidelines for small incidentally detected pulmonary nodules (or comparison could be made with outside studies if available). Dictated by Nino Valero MD @ 04/21/2022 3:29:19 PM Please note that all CT scans at this facility use dose modulation, iterative reconstruction, and/or weight-based dosing when appropriate to reduce radiation dose to as low as reasonably achievable. Dictated by: Nino Valero MD @ 04/21/2022 15:29:36 (Electronically Signed)
[2022-04-21 13:50] VITALS: BP 138/82; PULSE 57; RESP 20; TEMP 36.9; O2SAT 97
[2022-04-21 14:31] LABS: Chloride* 103 mmol/L (96-114); Potassium* 3.8 mmol/L (3.6-5.1); Sodium* 137 mmol/L (135-149)
[2022-04-21 14:34] LABS: Blood Urea Nitrogen* 14 mg/dL (7-30); Calcium* 9.6 mg/dL (8.4-10.6); Carbon Dioxide* 26 mmol/L (20-32); Est. Creatinine Clearance* 63.83; Estimated Glomerular Filt Rate 78 ml/min; Glucose* 100 mg/dL (60-115)
--- NOTE | 2022-04-21 14:34 | ED.NURSE ---
dalila cardoza aware of likely admission.
[2022-04-21 14:58] LABS: SARS PCR* Negative SARS-CoV-2 (Negative)
[2022-04-21 15:11] VITALS: BP 156/84; PULSE 59; RESP 18; O2SAT 98
--- NOTE | 2022-04-21 16:09 | P.IMHP_ITS ---
Hospitalist- H&P: HPI History of Present Illness Date Seen: 04/21/22 Chief complaint: Blood in urine Narrative: Juan Marcum is a 76 year old male who presented to the ER for acute onset of painless hematuria at 7:30am. This was followed by blood clots noted in the urine. No recent trauma, no back pain, no dysuria. No light ED Course and Findings: - Corona catheter placed and CBI initiated - hemoglobin 12.7 (baseline) - CT urogram performed, impression: 1. Material within the urinary bladder noted on the excretory phase images which may reflect intraluminal hemorrhage. The urinary bladder is otherwise decompressed by a Corona catheter. 2. No urinary calculi. 3. A few sub cm low-density renal lesions which are too small to characterize though may reflect small cysts. No definite solid enhancing renal mass. 4. No mass involving the renal collecting systems or contrast opacified portions of the ureters. 5. Cholelithiasis. 6. A few pulmonary micro nodules. If patient is high risk, follow-up examination could be performed in 12 months based on Fleischner Society guidelines for small incidentally detected pulmonary nodules (or comparison could be made with outside studies if available). ER physician discussed the case with Urology. Unfortunately, we are unable to transfer patient to a higher level of care facility given limited bed availability. Urology recommends CBI overnight and reassessing tomorrow. 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 Follow[facility] with [facility]ology at the [facility]. Had a DVT/PE in 2016, treated with 6 months of anticoagulation, none since. Essential hypertension, stable on hydrochlorothiazide. BPH, managed with Finasteride and Flomax. Lives alone in [place]. Sister Khushboo would be medical decision if needed, requests Full Code status. 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 Smoked for a very short time while in the , drinks 1-3 beers most nights of the week. No history of alcohol withdrawal. Review of Systems Status of ROS: Reports: 10 or more systems reviewed and unremarkable except as noted in History and below [facility] Medical History (Updated 04/21/22 @ 17:04 by Kristyn De Leon MD) BPH (benign prostatic hyperplasia) HHT (hereditary hemorrhagic telangiectasia) Hypertension Pulmonary embolism Surgical History History of cholecystectomy Social History Smoking Status: Smoker, status unknown Do you use any of these nicotine containing products: None Second hand tobacco smoke exposure: No How often do you have a drink containing alcohol: 4 or more times a week How many standard drinks containing alcohol do you have on a typical day: 3 or 4 How often do you have six or more drinks on one occasion: Never AUDIT-C Alcohol total score: 5 Non-prescribed substance use: denies use service: No Meds Home Medications and Allergies Home Medications Medication Instructions Recorded Confirmed Type hydrochlorothiazide 25 mg PO DAILY 02/13/22 04/21/22 History tamsulosin 0.4 mg capsule (Flomax) 0.4 mg PO DAILY 02/13/22 04/21/22 History finasteride 1 mg tablet 1 mg PO DAILY 04/21/22 04/21/22 History Allergies Allergy/AdvReac Type Severity Reaction Status Date / Time citalopram Allergy Unknown Verified 02/13/22 10:28 sertraline Allergy Unknown Verified 02/13/22 10:28 Exam Narrative: Exam Narrative: GEN: Alert and oriented, sitting comfortably in hospital bed and answering questions appropriately HEENT: Normal external ears, EOMIs bilaterally, no scleral icterus. + telangiectasias noted on tongue and bottom lip CV: RRR, No concerning murmurs, rubs, or gallops R: LCTA bilaterally without concerning wheezing, rales, or rhonchi Ext: wwp, no concerning edema, wearing mo hose bilaterally Skin: No concerning skin lesions or rashes on exposed skin besides oral telangiectasias Neuro: Nonfocal, no resting tremor Psych: Appropriate Const: Vital Signs, click to edit/add: Vital Signs - 24 hr 04/21/22 10:43 04/21/22 13:50 04/21/22 15:11 Temperature 97.6 F 98.5 F Pulse Rate [Right Pulse Oximeter] 61 57 L 59 L Respiratory Rate 18 20 18 Blood Pressure [Ri ght Upper Arm] 167/78 H 138/82 156/84 H Pulse Oximetry 97 97 98 Oxygen Delivery Me thod Room Air Room Air Room Air Hospitalist - H&P: Result Labs Labs: Short CBC 04/21/22 Range/Units 11:24 WBC 4.86 (4.50-11.00) K/uL Hgb 12.7 L (13.5-17.5) gm/dL Hct 37.6 (37.0-53.0) % Plt Count 252 (140-440) K/uL BMP 04/21/22 14:07 Sodium 137 Potassium 3.8 Chloride 103 Carbon Dioxide 26 BUN 14 Creatinine 1.0 Glucose 100 Calcium 9.6 Urine 04/21/22 Range/Units 11:02 Urine Color Red A (Yellow) Urine Appearance Cloudy A (Clear) Urine pH 8.5 (5.0-8.5) Ur Specific [place] 1.015 (1.000-1.030) Urine Protein 3+ A (Negative) Urine Glucose (UA) Negative (Negative) Assessment and Plan Assessment and plan (1) Hematuria: Status: Acute Assessment and Plan: Most likely source would be an AVM given history. Plan per below, follow hemoglobin. (2) HHT (hereditary hemorrhagic telangiectasia): Status: Acute (3) BPH (benign prostatic hyperplasia): Status: Acute Plan Per ER physician's discussion with Urology, continue CBI overnight. If hematuria clears, patient can have close outpatient follow-up with Urology. If hematuria persists after CBI overnight, will need to consider transfer to tertiary care facility for inpatient neurology management. Given active hematuria and history of HHT, defer pharmacologic anticoagulation. Continue Mo hose and SCDs for prophylaxis.
--- NOTE | 2022-04-21 16:35 | ED.NURSE ---
report to cierra pérez.
--- NOTE | 2022-04-21 16:59 | ED.NURSE ---
did get 3rd 3000 ml of saline irrigation hung for cbi. urine continues to be lt clear red. to 260 via w/c.
[2022-04-21 17:32] VITALS: BP 172/88; PULSE 53; RESP 16; TEMP 36.4; O2SAT 100; BMI 25.0
[2022-04-21 19:00] VITALS: BP 126/72; PULSE 62; RESP 18; TEMP 36.6; O2SAT 100
[2022-04-21 19:01] LABS: Hemoglobin* 13.8 gm/dL (13.5-17.5)
--- NOTE | 2022-04-21 22:37 | PC.NURSE ---
Shift [id number]- Patient arrives to unit at approximately 1655. CBI is in place and gutierrez is patent. Output is watermelon red on average with small clots at times. He denies pain, but states discomfort due to gutierrez. He declines pain medication. He is up ad liliana and tolerates well. Appetite is intact.
[2022-04-21 23:35] VITALS: BP 131/68; PULSE 62; PULSE 65; RESP 18; TEMP 36.8; O2SAT 100
[2022-04-21] MEDS: ACETAMINOPHEN 325 MG TABLET 975 MG PO (23:43)
[2022-04-22 03:10] VITALS: BP 138/63; PULSE 98; RESP 18; TEMP 36.4; O2SAT 98
[2022-04-22 06:41] LABS: Basophils Absolute Auto 0.01 K/uL (0.00-0.30); Basophils Percent Auto 0.1 % (0.0-3.0); Eosinophils Absolute Auto 0.07 K/uL (0.00-0.50); Hematocrit 38.1 % (37.0-53.0); Hemoglobin* 12.9 gm/dL (13.5-17.5); Immature Granulocytes Abs Auto 0.06 K/uL (0.00-0.30); Lymphocytes Percent Auto 12.3 % (20-44); Mean Corpuscular HGB Conc 34 gm/dL (32-36); Mean Corpuscular Hemoglobin 35 pg (26-34); Mean Corpuscular Volume 102 fL (80-100); Monocytes Percent Auto 8.3 % (0.0-11.0); Neutrophils Percent Auto 77.5 % (42.0-72.0); Platelet Count* 240 K/uL (140-440); RDW Coefficient of Variation % 14.2 % (11.5-15.5); Red Blood Count 3.73 m/uL (4.30-5.90); White Blood Count* 7.23 K/uL (4.50-11.00)
[2022-04-22 06:45] LABS: Slide Review Reflex No
[2022-04-22 06:51] LABS: Chloride* 103 mmol/L (96-114)
[2022-04-22 06:52] LABS: Potassium* 3.7 mmol/L (3.6-5.1); Sodium* 137 mmol/L (135-149)
[2022-04-22 06:54] LABS: Carbon Dioxide* 26 mmol/L (20-32); Est. Creatinine Clearance* 63.83; Estimated Glomerular Filt Rate 78 ml/min
[2022-04-22 06:55] LABS: Blood Urea Nitrogen* 20 mg/dL (7-30); Glucose* 108 mg/dL (60-115)
[2022-04-22 07:00] VITALS: BP 139/92; PULSE 62; RESP 18; TEMP 36.5; O2SAT 99
--- NOTE | 2022-04-22 07:49 | PC.NURSE ---
Shift note: The pt has been pleasant and cooperative. CBI has been running throughout the night; the CBI out color has been like phan color; no blood clot noted in the out put. Mild C/O catheter insertion site pain; relief with Tylenol
[2022-04-22 11:00] VITALS: BP 141/80; PULSE 59; RESP 18; TEMP 36.9; O2SAT 97
[2022-04-22] MEDS: ACETAMINOPHEN 325 MG TABLET 975 MG PO (12:23)
--- NOTE | 2022-04-22 13:16 | PM.IMPN1 ---
Progress Note: A&P Assessment and plan (1) Hematuria: Status: Acute Assessment and Plan: Continue bladder irrigation for now. Patient will probably need Urology consultation urgently if this is not resolve. Outpatient urology consultation if he is able to be discharged without a catheter. (2) HHT (hereditary hemorrhagic telangiectasia): Status: Acute Assessment and Plan: Possible cause for hematuria. I do feel he would benefit from cystoscopy to evaluate for other complications as well as treatment with coagulation if necessary (3) BPH (benign prostatic hyperplasia): Status: Acute Plan Continue in-hospital with bladder irrigation for another day to see if hematuria resolves. Tomorrow decide if transfer for urologic care verses discharged to home for outpatient urologic care. Time Spent With Patient Total time spent: Total time spent today is 50 minutes, 30 minutes in coordination of care and discussing with patient and other providers management of hematuria. Subjective Date Seen: 04/22/22 Interval history: 76-year-old male with HHT has ongoing hematuria. Admitted with possible bladder outlet due to blood clots. No previous history of bladder bleeding but does have a history of other internal bleeding related to HHT. Reports feeling well today. When I saw him this morning his bladder irrigation was clear. Because of this I clamped the irrigation. Shortly after this the urine turned bloody again. Resumed irrigation and immediately the urine cleared up again. Clamping again led to bloody urine in a can. Irrigation has been resumed. He has no other concerns at this time. Patient reports he has had a small amount of bloody drainage around the urethral meatus. Exam Narrative: Exam Narrative: He is alert and in no distress. Breathing is unlabored. Cardiovascular: S1, S2, regular rate and rhythm. Abdomen is soft without tenderness or mass. Bladder irrigation findings as above. Const: Vital Signs, click to edit/add: Vital Signs - 24 hr 04/21/22 13:50 04/21/22 15:11 04/21/22 17:32 Temperature 98.5 F 97.5 F L Pulse Rate [Right Pulse Oximeter] 57 L 59 L Pulse Rate [Right] 53 L Respiratory Rate 20 18 16 Blood Pressure [Ri ght Arm] 172/88 H Blood Pressure [Ri ght Upper Arm] 138/82 156/84 H Pulse Oximetry 97 98 100 Oxygen Delivery Me thod Room Air Room Air Room Air 04/21/22 19:00 04/21/22 23:35 04/21/22 23:35 Temperature 98 F 98.2 F Pulse Rate [Right Pulse Oximeter] Pulse Rate [Right] 62 62 65 Respiratory Rate 18 18 18 Blood Pressure [Ri ght Arm] 126/72 131/68 Blood Pressure [Ri ght Upper Arm] Pulse Oximetry 100 100 Oxygen Delivery Me thod Room Air 04/22/22 03:10 04/22/22 07:00 04/22/22 07:00 Temperature 97.5 F L 97.7 F Pulse Rate [Right Pulse Oximeter] Pulse Rate [Right] 98 62 62 Respiratory Rate 18 18 18 Blood Pressure [Ri ght Arm] 138/63 139/92 H Blood Pressure [Ri ght Upper Arm] Pulse Oximetry 98 99 Oxygen Delivery Me thod Room Air Room Air 04/22/22 11:00 Temperature 98.5 F Pulse Rate [Right Pulse Oximeter] Pulse Rate [Right] 59 L Respiratory Rate 18 Blood Pressure [Ri ght Arm] 141/80 H Blood Pressure [Ri ght Upper Arm] Pulse Oximetry 97 Oxygen Delivery Me thod Room Air Documenting provider has reviewed patient's vital signs: yes Labs Labs: Laboratory Results - last 24 hr 04/21/22 04/21/22 04/21/22 14:07 14:16 18:56 WBC RBC Hgb 13.8 Hct MCV MCH MCHC RDW Coeff of Ziggy Plt Count Neut % (Auto) Lymph % (Auto) [place] % (Auto) Eos % (Auto) Baso % (Auto) Neut # (Auto) Lymph # (Auto) [place] # (Auto) Eos # (Auto) Baso # (Auto) Abs Immat Gran (auto) Sodium 137 Potassium 3.8 Chloride 103 Carbon Dioxide 26 BUN 14 Creatinine 1.0 Estimated Creat Clear 63.83 Estimated GFR 78 Glucose 100 Calcium 9.6 SARS-CoV-2 (PCR) Negative SARS-CoV-2 04/22/22 04/22/22 06:26 06:26 WBC 7.23 RBC 3.73 L Hgb 12.9 L Hct 38.1 MCV 102 H MCH 35 H MCHC 34 RDW Coeff of Ziggy 14.2 Plt Count 240 Neut % (Auto) 77.5 H Lymph % (Auto) 12.3 L [place] % (Auto) 8.3 Eos % (Auto) 1.0 Baso % (Auto) 0.1 Neut # (Auto) 5.60 Lymph # (Auto) 0.90 [place] # (Auto) 0.60 Eos # (Auto) 0.07 Baso # (Auto) 0.01 Abs Immat Gran (auto) 0.06 Sodium 137 Potassium 3.7 Chloride 103 Carbon Dioxide 26 BUN 20 Creatinine 1.0 Estimated Creat Clear 63.83 Estimated GFR 78 Glucose 108 Calcium 9.0 SARS-CoV-2 (PCR)
[2022-04-22 15:00] VITALS: BP 136/76; PULSE 63; RESP 18; TEMP 36.9; O2SAT 98
--- NOTE | 2022-04-22 18:37 | PC.NURSE ---
Pt up independently in room. Tylenol for gutierrez cath irritation. CBI results in times of clear output to light red output; no clots noted by pt or machine sign writer.
[2022-04-22 19:58] VITALS: BP 133/78; PULSE 62; RESP 18; TEMP 36.9; O2SAT 99
[2022-04-22] MEDS: SODIUM CHLORIDE 0.9 % (FLUSH) 10 ML SYRINGE IVF (21:18)
[2022-04-22 23:00] VITALS: BP 133/78; PULSE 56; RESP 18; TEMP 36.3; O2SAT 97
[2022-04-23 03:00] VITALS: BP 126/66; PULSE 56; RESP 18; TEMP 36.2; O2SAT 98
--- NOTE | 2022-04-23 06:45 | PC.NURSE ---
pt very pleasant and cooperative. no c/o pain. Corona output clear, red/pink output, no clots. VSS. Afebrile.
[2022-04-23 06:54] LABS: Basophils Absolute Auto 0.01 K/uL (0.00-0.30); Basophils Percent Auto 0.1 % (0.0-3.0); Eosinophils Absolute Auto 0.06 K/uL (0.00-0.50); Eosinophils Percent Auto 0.9 % (0.0-7.0); Hemoglobin* 13.1 gm/dL (13.5-17.5); Immature Granulocytes Abs Auto 0.01 K/uL (0.00-0.30); Lymphocytes Percent Auto 12.2 % (20-44); Mean Corpuscular HGB Conc 34 gm/dL (32-36); Mean Corpuscular Hemoglobin 34 pg (26-34); Mean Corpuscular Volume 102 fL (80-100); Monocytes Percent Auto 7.8 % (0.0-11.0); Neutrophils Percent Auto 78.9 % (42.0-72.0); Platelet Count* 259 K/uL (140-440); RDW Coefficient of Variation % 14.2 % (11.5-15.5); Red Blood Count 3.83 m/uL (4.30-5.90); White Blood Count* 6.83 K/uL (4.50-11.00)
[2022-04-23 07:00] VITALS: BP 139/75; PULSE 56; PULSE 61; RESP 18; TEMP 36.4; O2SAT 94
[2022-04-23 07:30] LABS: Slide Review Reflex No
[2022-04-23] MEDS: SODIUM CHLORIDE 0.9 % (FLUSH) 10 ML SYRINGE IVF (09:10)
[2022-04-23] MEDS: ACETAMINOPHEN 325 MG TABLET 650 MG PO (09:16)
[2022-04-23 11:00] VITALS: BP 127/72; PULSE 60; RESP 18; TEMP 36.4; O2SAT 97
--- NOTE | 2022-04-23 11:02 | PM.DS1 ---
DS: Providers Provider Date Seen: 04/23/22 Date of admission: 04/21/22 16:38 Primary care physician: Mehran Mello MD Admitting Clinician: Kristyn De Leon MD Attending Physician on discharge: Link Armstrong MD Date of Discharge: 04/23/22 DS: Diagnosis Discharge Diagnosis (1) Hematuria: Status: Acute (2) HHT (hereditary hemorrhagic telangiectasia): Status: Acute (3) BPH (benign prostatic hyperplasia): Status: Acute DS: Summary Hospital Course Hospital Course: Patient urinated upon arrival, urine was few mL of bright red blood and blood clots. Gutierrez was placed and 600 mL of urine was obtained, gross hematuria present. Gutierrez with CBI was started. CBC was consistent with hematuria, no evidence of infection present. Hemoglobin just slightly low at just over 12. After 3 hours of of CBI, urine continued to be red in color. I consulted with Dr. Dela Cruz, [place] [facility] who recommended overnight CBI and a CT urogram. If he cleared up by the morning we could stop CBI, keep the Gutierrez in place and have him follow-up with urology as an outpatient however if the urine continued to be red in color he recommended transfer to a hospital with Urology capability. Ideally transfer to a hospital with Urology capability would be our 1st step however we tried several major hospitals with this capability ([facility], [facility], [facility], [place] and all were full with no bed availability. HOSPITAL SUMMARY Juan Marcum is a 76 year old male who presented to the ER for acute onset of painless hematuria at 7:30am.? This was followed by blood clots noted in the urine. No recent trauma, no back pain, no dysuria. No light ED Course and Findings: ?- Gutierrez catheter placed and CBI initiated ?- hemoglobin 12.7 (baseline) ?- CT urogram performed, impression: 1. Material within the urinary bladder noted on the excretory phase images which may reflect intraluminal hemorrhage. The urinary bladder is otherwise decompressed by a Gutierrez catheter. 2. No urinary calculi. 3. A few sub cm low-density renal lesions which are too small to characterize though may reflect small cysts. No definite solid enhancing renal mass. 4. No mass involving the renal collecting systems or contrast opacified portions of the ureters. 5. Cholelithiasis. 6. A few pulmonary micro nodules. If patient is high risk, follow-up examination could be performed in 12 months based on Fleischner Society guidelines for small incidentally detected pulmonary nodules (or comparison could be made with outside studies if available). ER physician discussed the case with Urology.? Urology recommends CBI. He continues to have hematuria and was transferred to [facility] for Urology consultation. Time Spent with Patient Time attestation: Total time spent providing and/or coordinating discharge services: Time spent: Greater than 30 minutes Exam Narrative: Exam Narrative: Gen: No acute distress HEENT: NCAT EOMI MMM CV: RRR normal s1 s2 Lungs: CTAB Abd: Soft, nt, nd Gu: gutierrez in place with CBI/hematuria Const: Vital Signs, click to edit/add: Vital Signs - 24 hr 04/22/22 15:00 04/22/22 15:00 04/22/22 19:58 Temperature 98.5 F 98.5 F Pulse Rate [Right] 63 63 62 Respiratory Rate 18 18 18 Blood Pressure [Ri ght Arm] 136/76 133/78 Pulse Oximetry 98 99 Oxygen Delivery Me thod Room Air Room Air 04/22/22 23:00 04/22/22 23:00 04/23/22 03:00 Temperature 97.4 F L 97.2 F L Pulse Rate [Right] 56 L 56 L 56 L Respiratory Rate 18 18 18 Blood Pressure [Ri ght Arm] 133/78 126/66 Pulse Oximetry 97 98 Oxygen Delivery Me thod Room Air Room Air 04/23/22 07:00 04/23/22 07:00 Temperature 97.5 F L Pulse Rate [Right] 56 L 61 Respiratory Rate 18 18 Blood Pressure [Ri ght Arm] 139/75 Pulse Oximetry 94 Oxygen Delivery Me thod Room Air DS: Data Data Completed and Pending Labs on day of discharge: Labs from last 24 hours 04/23/22 06:26 WBC 6.83 RBC 3.83 L Hgb 13.1 L Hct 39.0 MCV 102 H MCH 34 MCHC 34 RDW Coeff of Ziggy 14.2 Plt Count 259 Neut % (Auto) 78.9 H Lymph % (Auto) 12.2 L [place] % (Auto) 7.8 Eos % (Auto) 0.9 Baso % (Auto) 0.1 Neut # (Auto) 5.40 Lymph # (Auto) 0.80 L [place] # (Auto) 0.50 Eos # (Auto) 0.06 Baso # (Auto) 0.01 Abs Immat Gran (auto) 0.01 Discharge Plan Discharge Disposition: Xfer Other Discharge Location: [facility] Date of Admission: 04/21/22 16:38 Attending Provider on Discharge: Link Armstrong Primary Care Provider: Mehran Mello Condition: Stable Anticipated Discharge Date/Time: 04/23/22 15:01 Discharge Medications: New sulfamethoxazole-trimethoprim [Bactrim DS] 800-160 mg tablet 1 tab PO BID 7 Days Qty: 14 0RF Continued hydrochlorothiazide 25 mg PO DAILY tamsulosin [Flomax] 0.4 mg capsule 0.4 mg PO DAILY finasteride 1 mg tablet 1 mg PO DAILY Discharge Orders: Discharge Order (Routine); Ordered 04/23/22 Ordered By: Link Armstrong Activity Restrictions/Additional Instructions: Follow-up with your primary care provider in the next 2-3 days to have your Gutierrez removed. Also recommend follow-up with Urology, this can usually be set up through your primary care provider. If your Gutierrez becomes blocked and no urine is coming out, return to the ER. Take all antibiotics as prescribed. Activity Level: Activity as Tolerated Discharge Diet: Other Diet Detail: NPO Follow Up Appointments: Mehran Mello MD [Primary Care Provider] - Forms: [facility] Info Instructions Hospital Course: Patient urinated upon arrival, urine was few mL of bright red blood and blood clots. Gutierrez was placed and 600 mL of urine was obtained, gross hematuria present. Gutierrez with CBI was started. CBC was consistent with hematuria, no evidence of infection present. Hemoglobin just slightly low at just over 12. After 3 hours of of CBI, urine continued to be red in color. I consulted with Dr. Dela Cruz, urology [facility], who recommended overnight CBI and a CT urogram. If he cleared up by the morning we could stop CBI, keep the Gutierrez in place and have him follow-up with urology as an outpatient however if the urine continued to be red in color he recommended transfer to a hospital with Urology capability. Ideally transfer to a hospital with Urology capability would be our 1st step however we tried several major hospitals with this capability ([facility], [facility], [place], [facility], [place], [place]) and all were full with no bed availability. HOSPITAL SUMMARY Juan Marcum is a 76 year old male who presented to the ER for acute onset of painless hematuria at 7:30am.? This was followed by blood clots noted in the urine. No recent trauma, no back pain, no dysuria. No light ED Course and Findings: ?- Gutierrez catheter placed and CBI initiated ?- hemoglobin 12.7 (baseline) ?- CT urogram performed, impression: 1. Material within the urinary bladder noted on the excretory phase images which may reflect intraluminal hemorrhage. The urinary bladder is otherwise decompressed by a Gutierrez catheter. 2. No urinary calculi. 3. A few sub cm low-density renal lesions which are too small to characterize though may reflect small cysts. No definite solid enhancing renal mass. 4. No mass involving the renal collecting systems or contrast opacified portions of the ureters. 5. Cholelithiasis. 6. A few pulmonary micro nodules. If patient is high risk, follow-up examination could be performed in 12 months based on Fleischner Society guidelines for small incidentally detected pulmonary nodules (or comparison could be made with outside studies if available). ER physician discussed the case with Urology.? Urology recommends CBI. He continues to have hematuria and was transferred to [facility] for Urology consultation.
[2022-04-23 15:30] VITALS: BP 144/76; PULSE 63; RESP 18; TEMP 36.7; O2SAT 93
== END 2022-04-23 18:27 | disposition other institution (70) ==
LOC: ED 14:17 → MEDSURG 16:39
PROVIDERS: Family Medicine; Admitting Provider Family Medicine; Emergency Provider Family Medicine; PCP Family Medicine; Visit Provider Family Medicine
DX: R31.9 Hematuria, unspecified (principal); R71.0 Precipitous drop in hematocrit; I78.0 Hereditary hemorrhagic telangiectasia; N40.0 Benign prostatic hyperplasia without lower urinary tract symptoms; R82.998 Other abnormal findings in urine; F17.200 Nicotine dependence, unspecified, uncomplicated; Z90.49 Acquired absence of other specified parts of digestive tract; I10 Essential (primary) hypertension; R91.8 Other nonspecific abnormal finding of lung field; K80.20 Calculus of gallbladder without cholecystitis without obstruction
CPT/HCPCS: 36415; 51702; 74178; 80048; 81001; 85018; 85025; 87086; 87635; 99284; 99285; A9270; G0378; Q9967

== ENCOUNTER 2022-04-23 16:25 | Outpatient (CLI) | payer OTHER, SELFPAY ==
--- OUTSIDE RECORDS SUMMARY | 2022-05-26 08:29 | XMS_ITS | Continuity of Care Document ---
:1945 Author Organization [facility] Care Team Providers Name Role Phone [facility] Unavailable Unavailable Problems Combined list of problems from Department of Defense and Veterans Affairs facilities. It does not include entries that were removed or entered in error. 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 Entered By: JHONY ROMANO Comment: LLE 08/2015 Hypertensive disorder Active Condition [facility] Insomnia Active Condition [place] (CBOC) Iron deficiency Active Condition [facility] anemia due to chronic (CBOC) blood loss Irritable bowel Active Condition [facility] syndrome with (CBOC) diarrhea Ocular migraine Active Condition [facility] (CBOC) Pulmonary embolism Active Condition Oct 292016 (CBOC) Entered By: JHONY ROMANO Comment: history of multiple small PEs in his right chest 08/2015 Routine General Active Condition [facility] Medical Examination HCS at a Health Care Facility * (ICD-9-CM V70.0) Varicose veins of Active Condition [facility] left lower limb (CBO C) Diagnosis: ICD-10-CM Active Diagnosis [place] G47.33 Obstructive V A HCS sleep apnea (adult) (pediatric)with Provider Comments: Obstructive Sleep Apnea (Adult) (Pediatric) Diagnosis: ICD-10-CM Active Diagnosis [place] G47.33 Obstructive V A [facility] sleep apnea (adult) (pediatric)with Provider Comments: Obstructive Sleep Apnea Diagnosis: ICD-10-CM Active Diagnosis [place] R31.0 Gross (CBOC) hematuriawith Provider Comments: Gross Hematuria Diagnosis: ICD-10-CM Active Diagnosis [place] Z23 Encounter for (C BOC) immunizationwith Provider Comments: Encounter for Immunization Diagnosis: ICD-10-CM Active Diagnosis [place] F41.9 Anxiety (CBOC) disorder, unspecifiedwith Provider Comments: Exposure to combat ([facility] [id number]) Diagnosis: ICD-10-CM Active Diagnosis [place] R31.9 Hematuria, (CB OC) unspecifiedwith Provider Comments: Hematuria, unspecified Diagnosis: ICD-10-CM Active Diagnosis [place] Z71.[address] [facility] specified counselingwith Provider Comments: Other specified counseling Diagnosis: ICD-10-CM Active Diagnosis [place] G47.9 Sleep disorder, [facility] unspecifiedwith Provider Comments: Sleep Disorder, unspecified Diagnosis: ICD-10-CM Active Diagnosis [place] I78.[address] [facility] hemorrhagic telangiectasiawith Provider Comments: HHT - Hereditary hemorrhagic telangiectasia ([facility] [id number]) Diagnosis: ICD-10-CM Active Diagnosis [place] I10 Essential (CBOC) (primary) hypertensionwith Provider Comments: Hypertensive disorder ([facility] [id number]) Diagnosis: ICD-10-CM Active Diagnosis [place] H90.[address] [facility] hearing loss, bilateralwith Provider Comments: Sensorineural hearing loss, bilateral Diagnosis: ICD-10-CM Active Diagnosis [place] R35.1 Nocturiawith V A [facility] Provider Comments: Nocturia Diagnosis: ICD-10-CM Active Diagnosis [place] H25.[address] [facility] forms of age-related cataract, bilateralwith Provider Comments: [...] Provider Date Date CARBOXYMETH INSTILL BOTH 12/09/2021 [id number] W WONG ZAMARRIPA 12/08/ [place] YLCELLULOSE 1 DROP EYES 2 ISTIN S 2020 [place] [facility] NA 0.25% IN BOTH [facility] SOLN,OPH EYES TWICE A DAY FOR DRY EYES CHOLECALCIF TAKE ONE ORALLY ACTIVE [place] FONTENOT 03/23 / [facility] KEVIN 25MCG TABLET H N 2018 ER (1,000UNIT) BY MOUTH (CBOC ) TAB EVERY DAY CORAL TAKE 4 ORAL ACTIVE LITA,DA 12/19/ ST. CALCIUM TAB CAPS 2006 CLOUD DAILY/TA [facility] B 500MG BY MOUTH FERROUS SO4 TAKE ONE ORALLY 12/15/2021 [id number] GEOVANNY,CL 12/14/ [facility] 325MG TAB TABLET 1 2020 ER BY MOUTH SHAR (CBOC) TWO TIMES A DAY FOR IRON DEFICINE CY ANEMIA FERROUS TAKE 25 ORAL ACTIVE LITADA 12/19/ ST. SULFATE TAB MG BY 2006 MOUTH [facility] DAILY FINASTERIDE TAKE ONE ORALLY ACTIVE 02/22/2023 [id number] ERNA,KA 02/22/ [place] 5MG TAB TABLET 2 MALIKA L 2021 [place] [facility] BY MOUTH HCS EVERY DAY FOR PROSTATE FINASTERIDE TAKE ONE ORALLY DISCONT 03/01/2022 [id number] ERNA,KA 03/01/ [place] 5MG TAB TABLET INUED 2 MALIKA L 2020 [place] [facility] BY MOUTH HCS EVERY DAY FOR PROSTATE HYDROCHLORO TAKE ONE ORALLY ACTIVE 01/25/2023 [id number] GEOVANNY,CL 01/27/ [place] THIAZIDE TABLET 2 2021 ER 25MG TAB BY MOUTH SHAR (CBOC ) EVERY DAY HYDROCHLORO TAKE ONE ORALLY DISCONT 01/26/2022 [id number] GEOVANNY,CL 01/26/ [facility] THIAZIDE TABLET INUED 2 2020 ER 25MG TAB BY MOUTH SHAR (CBOC ) EVERY DAY MAGNESIUM TAKE 200 ORAL ACTIVE IMAN [place] 12/19/ S T. TAB,EC MG TWO 2006 CLOUD TABS BY [facility] [facility] MOUTH DAILY NON [facility] MED USE ACTIVE FONTENOT,MIN 03/23/ [facility] NOT LISTED CALCIUM H N 2018 ER 1000 (CBOC) MG/PHOSP HORUS 500 MG/MAGNE SIUM 500 MG - 1 TABLET oral EVERY DAY OMEGA 3 TAKE 380 ORAL ACTIVE LITADA 12/19/ ST. CAP/TAB MG BY 2006 CLOUD MOUTH [facility] DAILY POTASSIUM TAKE 520 ORAL ACTIVE LITADA 12/19/ S T. 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-19, 1 complet PFR; R [place] MRNA, LNP-S, 2021 ed [id number]; ER BIVALENT ( CBOC) BOOSTER, PF, 3 30 MCG/0.3 ML DOSE COVID-19 3 complet PFR; RO CHEST (PFIZER), 2021 ed [id number]; ER MRNA, LNP-S, (CBOC) PF, 30 2 MCG/0.3 ML DOSE, DAWNA-SUCROSE (AGES 12+ YEARS) COVID-19 3 complet PFR; [place] (PFIZER), 2020 ed [id number]; [place] [facility] MRNA, LNP-S, 02 HCS PF, 30 1 MCG/0.3 ML DOSE INFLUENZA, complet [place] INJECTABLE, 2020 ed [place] [facility] QUADRIVALENT, HCS PRESERVATIVE FREE COVID-19 2 complet PFR; RO CHEST (PFIZER), 2020 ed [id number]; ER MRNA, LNP-S, 02 (CBOC) PF, 30 1 MCG/0.3 ML DOSE COVID-19 1 complet PFR; RO CHEST (PFIZER), 2020 ed [id number]; ER MRNA, LNP-S, 02 (CBOC) PF, 30 1 MCG/0.3 ML DOSE INFLUENZA, complet [facility] INJECTABLE, 2019 ed ER QUADRIVALENT, (CBOC) PRESERVATIVE FREE ZOSTER 2 complet [place] EST RECOMBINANT 2019 ed ER (CBOC) ZOSTER 1 complet [place] EST RECOMBINANT 2018 ed ER (CBOC) INFLUENZA, complet [place] SEASONAL, 2019 ed [place] [facility] INJECTABLE, HC S PRESERVATIVE FREE INFLUENZA, complet [place] SEASONAL, 2017 ed ER INJECTABLE, (C BOC) PRESERVATIVE FREE INFLUENZA, complet [facility] HIGH DOSE 2017 ed ER SEASONAL (CBOC ) INFLUENZA, complet [facility] HIGH DOSE 2016 ed ER SEASONAL (CBOC ) INFLUENZA, complet [facility] HIGH DOSE 2014 ed ER SEASONAL (CBOC ) PNEUMOCOCCAL complet Wyet h [facility] CONJUGATE PCV 2014 ed Pharm, ER 13 [id number], (CBOC) 10/11 INFLUENZA, complet [facility] UNSPECIFIED 2013 ed ER FORMULATION (C BOC) PNEUMOCOCCAL, complet chanell k and [facility] UNSPECIFIED 2013 ed co ER FORMULATION [id number] (CBOC) [id number] ZOSTER LIVE complet merk and [facility] 2013 ed co ER [id number] (CBOC) [id number] TDAP complet GLAXO/SMI H GEOVANNA 2012 ed TH/LEAHY CBOC LOT# [id number] A EXP: 04/13/15 INFLUENZA, complet ST. UNSPECIFIED 2005 ed CL OUD FORMULATION [facility] TD(ADULT) complet S T. UNSPECIFIED [address] [facility] INFLUENZA, complet ST. UNSPECIFIED [address] FORMULATION [facility] Results Combined list of recent chemistry, hematology and other laboratory results from Department of Defense and Veterans Affairs, ranging from 15 months to all on record, depending upon the facility. Order Results Value Reference Date Interpretation Specimen Commen ts Source Name Range CBC LEUKOCYTES 5.36 4.0 - 11.0 10/04 Specimen T ype: BLOOD EDUARDO [#/VOLUME] /2021 No comment en tered. (CBOC) IN BLOOD Ordering Provi tracy: EVANS SMALL BY Report Released Date/Time: Apr 30, 2022 12:31 PM AUTOMATED Reporting Lab : [facility] COUNT [address] [place] [address] Performing Lab: [facility] HCS [address] [place] [address] CBC ERYTHROCYT 3.84 4.6 - 6.2 10/04 L Specimen Ty pe: BLOOD EDUARDO ES /2021 No comment enter ed. (CBOC) [#/VOLUME] Ordering Pro vider: EVANS SMALL IN BLOOD Report Release d Date/Time: Apr 30, 2022 12:31 PM BY Reporting Lab: [facility] AUTOMATED [address] [facility] [address] COUNT Performing Lab: [facility] HCS [address] [place] [address] CBC HEMOGLOBIN 13.3 13.5 - 10/04 L Specimen Type : BLOOD EDUARDO [MASS/VOLU 17.9 No comment en tered. (CBOC) ME] IN Ordering Provid er: EVANS SMALL BLOOD Report Released Date/Time: Apr 30, 2022 12:31 PM Reporting Lab: [facility] HCS [address] [place] [address] Performing Lab: [facility] [address] [place] [address] CBC HEMATOCRIT 39.5 41 - 54 10/04 L Specimen Type : BLOOD EDUARDO [VOLUME /2021 No comment enter ed. (CBOC) FRACTION] Ordering Prov ider: EVANS SMALL OF BLOOD Report Release d Date/Time: Apr 30, 2022 12:31 PM BY Reporting Lab: [facility] AUTOMATED [address] [facility] [address] COUNT Performing Lab: [facility] [address] [place] [address] CBC MCV 102.9 80 - 100 10/04 H Specimen Type: BLOOD EDUARDO [ENTITIC /2021 No comment ente red. (CBOC) VOLUME] BY Ordering Pro vider: EVANS SMALL AUTOMATED Report Releas ed Date/Time: Apr 30, 2022 12:31 PM COUNT Reporting Lab: [facility] [address] [place] [place] [address] Performing Lab: [facility] [address] [place] [address] CBC MCH 34.6 27 - 33 10/ H Specimen Type: B TIMOTHYOD EDUARDO [ENTITIC /2021 No comment ente red. (CBOC) MASS] BY Ordering Provi tracy: EVANS SMALL AUTOMATED Report Releas ed Date/Time: Apr 30, 2022 12:31 PM COUNT Reporting Lab: [facility] [address] [place] [place] [address] Performing Lab: [facility] [address] [place] [address] CBC MCHC 33.7 32.0 - 10 Specimen Type: B ARIEL CLARK [MASS/VOLU 37.5 /2021 No comment en tered. (CBOC) ME] BY Ordering Provid er: EVANS SMALL AUTOMATED Report Releas ed Date/Time: Apr 30, 2022 12:31 PM COUNT Reporting Lab: [facility] [address] [place] [place] [address] Performing Lab: [facility] [address] [place] [address] CBC PLATELETS 291 150 - 400 04/30 Specimen Typ e: BLOOD EDUARDO [#/VOLUME] /2021 No comment en tered. (CBOC) IN BLOOD Ordering Provi tracy: EVANS SMALL BY Report Released Date/Time: Apr 30, 2022 12:31 PM AUTOMATED Reporting Lab : [facility] COUNT [address] [place] [place] [address] Performing Lab: [facility] HCS [address] [place] [place] [address] CBC PLATELET 9.9 7.4 - 10.4 04/30 Specimen Typ e: BLOOD EDUARDO MEAN /2021 No comment enter ed. (CBOC) VOLUME Ordering Provid er: EVANS SMALL [ENTITIC Report Release d Date/Time: Apr 30, 2022 12:31 PM VOLUME] IN Reporting La b: [facility] BLOOD BY [address] [place] [address] AUTOMATED Performing La b: [facility] COUNT [address] [place] [place] [address] CBC ERYTHROCYT 14.0 11.5 - 10 Specimen Type : BLOOD EDUARDO E 14.5 /2021 No comment enter ed. (CBOC) DISTRIBUTI Ordering Pro vider: EVANS SMALL ON WIDTH Report Release d Date/Time: Apr 30, 2022 12:31 PM [RATIO] BY Reporting La b: [facility] AUTOMATED [address] [facility] [address] COUNT Performing Lab: [facility] [address] [place] [address] BASIC CREATININE 1.1 0.7 - 1.2 04/30 Specimen Ty pe: PLASMA EDUARDO METABOLI [MASS/VOLU /2021 No comment e ntered. (CBOC) C ME] IN Ordering Provid er: EVANS SMALL PANEL+MG SERUM OR Report Releas ed Date/Time: Apr 30, 2022 12:31 PM PLASMA Reporting Lab: [facility] [address] [place] [address] Performing Lab: [facility] [address] [place] [facility] [address] BASIC UREA 16 8 - 26 04/30 Specimen Type: P LASMA EDUARDO METABOLI NITROGEN /2021 No comment ent ered. (CBOC) C [MASS/VOLU Ordering Pro vider: EVANS SMALL PANEL+MG ME] IN Report Release d Date/Time: Apr 30, 2022 12:31 PM SERUM OR Reporting Lab: [facility] PLASMA [address] [place] [facility] [address] Performing Lab: [facility] [address] [place] [facility] [address] BASIC GLUCOSE 92 70 - 100 04/30 Specimen Type: PLASMA EDUARDO METABOLI [MASS/VOLU /2021 No comment e ntered. (CBOC) C ME] IN Ordering Provid er: EVANS SMALL PANEL+MG SERUM OR Report Releas ed Date/Time: Apr 30, 2022 12:31 PM PLASMA Reporting Lab: [facility] [address] [place] [address] Performing Lab: [facility] [address] [place] [facility] [address] BASIC SODIUM 136 136 - 145 04/30 Specimen Type: PLASMA EDUARDO METABOLI [MOLES/VOL /2021 No comment e ntered. (CBOC) C UME] IN Ordering Provid er: EVANS SMALL PANEL+MG SERUM OR Report Releas ed Date/Time: Apr 30, 2022 12:31 PM PLASMA Reporting Lab: [facility] [address] [place] [place] [address] Performing Lab: [facility] [address] [place] [facility] [address] BASIC POTASSIUM 4.1 3.5 - 5.1 04/30 Specimen Typ e: PLASMA EDUARDO METABOLI [MOLES/VOL /2021 No comment e ntered. (CBOC) C UME] IN Ordering Provid er: EVANS SMALL PANEL+MG SERUM OR Report Releas ed Date/Time: Apr 30, 2022 12:31 PM PLASMA Reporting Lab: [facility] [address] [place] [address] Performing Lab: [facility] ONE [facility] [place] [address] [place] [address] BASIC CHLORIDE 102 98 - 107 04/30 Specimen Type: PLASMA EDUARDO METABOLI [MOLES/VOL /2021 No comment e ntered. (CBOC) C UME] IN Ordering Provid er: EVANS SMALL PANEL+MG SERUM OR Report Releas ed Date/Time: Apr 30, 2022 12:31 PM PLASMA Reporting Lab: [facility] ONE [facility] [address] [place] [facility] [address] Performing Lab: [facility] [address] [place] [address] BASIC CARBON 26 22 - 29 04/30 Specimen Type: P MONA EDUARDO METABOLI DIOXIDE No comment ent ered. (CBOC) C TOTAL Ordering Provid er: VEANS SMALL PANEL+MG [MOLES/VOL Report Rele ased Date/Time: Apr 30, 2022 12:31 PM UME] IN Reporting Lab: [facility] SERUM OR [address] [place] [facility] [address] PLASMA Performing Lab: [facility] ONE [facility] [address] [place] [place] [address] BASIC CALCIUM 10.3 8.4 - 10.2 04/30 H Specimen Type : PLASMA EDUARDO METABOLI [MASS/VOLU /2021 No comment e ntered. (CBOC) C ME] IN Ordering Provid er: EVANS SMALL PANEL+MG SERUM OR Report Releas ed Date/Time: Apr 30, 2022 12:31 PM PLASMA Reporting Lab: [facility] [address] [place] [facility] [address] Performing Lab: [facility] ONE [facility] [address] [place] [facility] [address] BASIC MAGNESIUM 2.0 1.6 - 2.6 04/30 Specimen Typ e: PLASMA EDUARDO METABOLI [MASS/VOLU /2021 No comment e ntered. (CBOC) C ME] IN Ordering Provid er: EVANS SMALL PANEL+MG SERUM OR Report Releas ed Date/Time: Apr 30, 2022 12:31 PM PLASMA Reporting Lab: [facility] [address] [place] [address] Performing Lab: [facility] [address] [place] [address] BASIC ANION GAP 8 5 - 15 04/30 Specimen Type: PLASMA EDUARDO METABOLI IN SERUM /2021 No comment ent ered. (CBOC) C OR PLASMA Ordering Prov ider: EVANS SMALL PANEL+MG Report Release d Date/Time: Apr 30, 2022 12:31 PM Reporting Lab: [facility] [address] [place] [address] Performing Lab: [facility] [address] [place] [address] BASIC GLOMERULAR 70 60 04/30 Specimen Type : PLASMA EDUARDO METABOLI FILTRATION /2021 No comment e ntered. (CBOC) C RATE/1.73 Ordering Prov ider: EVANS SMALL PANEL+MG SQ Report Release d Date/Time: Apr 30, 2022 12:31 PM ALAN Reporting La b: [facility] D [VOLUME [address] [facility] [address] RATE/AREA] Performing L ab: [facility] IN SERUM, ONE [employer] [facility] [address] PLASMA OR BLOOD BY CREATININE -BASED FORMULA (CKD-EPI) URINALYS COLOR OF COLORLES 04/26 Specimen Type : URINE [place] IS URINE S /2021 No comment enter ed. [facility] Ordering Provid er: SYLVIE BONDS Report Released Date/Time: Apr 26, 2022 03:38 AM Reporting Lab: [facility] [address] [place] [address] Performing Lab: [facility] [address] [place] [address] URINALYS SPECIFIC 1.007 1.003 - 04/26 Specimen Type: URINE [place] IS GRAVITY OF 1.035 /2021 No comment en tered. [facility] URINE Ordering Provid er: SYLVIE BONDS Report Released Date/Time: Apr 26, 2022 03:38 AM Reporting Lab: [facility] [address] [place] [facility] [address] Performing Lab: [facility] [address] [place] [address] URINALYS BILIRUBIN. NEGATIVE 04/26 Specimen Ty pe: URINE [place] IS TOTAL /2021 No comment enter ed. IS [facility] [[facility]] Ordering Pro vider: SYLVIE BONDS IN URINE Report Release d Date/Time: Apr 26, 2022 03:38 AM BY TEST Reporting Lab: [facility] HCS STRIP [address] [place] [address] Performing Lab: [facility] [address] [place] [address] URINALYS KETONES NEGATIVE 04/26 Specimen Type: URINE [place] IS [MASS/VOLU /2021 No comment en tered. IS [facility] ME] IN Ordering Provid er: SYLVIE BONDS URINE BY Report Release d Date/Time: Apr 26, 2022 03:38 AM TEST STRIP Reporting La b: [facility] HCS [address] [place] [address] Performing Lab: [facility] [address] [place] [address] URINALYS GLUCOSE NEGATIVE <30 - 30 04/26 Specimen Type : URINE [place] IS [MASS/VOLU /2021 No comment en tered. IS [facility] ME] IN Ordering Provid er: SYLVIE BONDS URINE BY Report Release d Date/Time: Apr 26, 2022 03:38 AM TEST STRIP Reporting La b: [facility] HCS [address] [place] [address] Performing Lab: [facility] HCS [address] [place] [address] URINALYS PROTEIN 10 <20 - 20 04/26 Specimen Type: URINE [place] IS [MASS/VOLU /2021 No comment en tered. IS [facility] ME] IN Ordering Provid er: SYLVIE BONDS URINE BY Report Release d Date/Time: Apr 26, 2022 03:38 AM TEST STRIP Reporting La b: [facility] HCS [address] [place] [address] Performing Lab: [facility] [address] [place] [address] URINALYS PH OF 6.0 5.0 - 8.0 04/26 Specimen Type : URINE [place] URINE BY /2021 No comment ente red. IS [facility] TEST STRIP Ordering Pro vider: SYLVIE BONDS Report Released Date/Time: Apr 26, 2022 03:38 AM Reporting Lab: [facility] [address] [place] [address] Performing Lab: [facility] [address] [place] [address] URINALYS LEUKOCYTES 34 0 - 7 09/30 H Specimen Typ e: URINE [place] IS [#/AREA] /2021 No comment ente red. IS [facility] IN URINE Ordering Provi tracy: SYLVIE BONDS SEDIMENT Report Release d Date/Time: Apr 26, 2022 03:38 AM BY Reporting Lab: [facility] MICROSCOPY ONE [facility] [address] HIGH POWER Performing L ab: [facility] FIELD [address] [place] [facility] [address] URINALYS BACTERIA NONE 04/26 Specimen Type: URINE [place] IS [[place]] SEEN /2021 No comment en tered. IS [facility] IN URINE Ordering Provi tracy: SYLVIE BONDS SEDIMENT Report Release d Date/Time: Apr 26, 2022 03:38 AM BY LIGHT Reporting Lab: [facility] MICROSCOPY [facility] [address] Performing Lab: [facility] [address] [place] [facility] [address] URINALYS ERYTHROCYT 44 0 - 3 /30 H Specimen Typ e: URINE [place] IS ES /2021 No comment enter ed. IS [facility] [#/AREA] Ordering Provi tracy: SYLVIE BONDS IN URINE Report Release d Date/Time: Apr 26, 2022 03:38 AM SEDIMENT Reporting Lab: [facility] BY [address] [place] [facility] [address] MICROSCOPY Performing L ab: [facility] HIGH POWER [facility] [address] FIELD URINALYS APPEARANCE CLEAR 04/26 Specimen Typ e: URINE [place] IS OF URINE /2021 No comment ente red. IS [facility] Ordering Provid er: SYLVIE BONDS Report Released Date/Time: Apr 26, 2022 03:38 AM Reporting Lab: [facility] [address] [place] [facility] [address] Performing Lab: [facility] [address] [place] [facility] [address] URINALYS EPITHELIAL NONE 04/26 Specimen Typ e: URINE [place] IS CELLS.SQUA SEEN /2021 No comment en tered. IS [facility] MOUS Ordering Provid er: SYLVIE BONDS [#/AREA] Report Release d Date/Time: Apr 26, 2022 03:38 AM IN URINE Reporting Lab: [facility] SEDIMENT ONE [facility] [address] [place] [facility] [address] BY Performing Lab: [facility] MICROSCOPY [address] [facility] [address] HIGH POWER FIELD URINALYS HEMOGLOBIN 3+ 04/26 Specimen Typ e: URINE [place] IS [PRESENCE] /2021 No comment en bar. IS [facility] IN URINE Ordering Provi tracy: SYLVIE BONDS BY TEST Report Released Date/Time: Apr 26, 2022 03:38 AM STRIP Reporting Lab: [facility] [address] [place] [facility] [address] Performing Lab: [facility] [address] [place] [facility] [address] URINALYS NITRITE NEGATIVE 04/26 Specimen Type: URINE [place] IS [PRESENCE] /2021 No comment en bar. IS [facility] IN URINE Ordering Provi tracy: SYLVIE BONDS BY TEST Report Released Date/Time: Apr 26, 2022 03:38 AM STRIP Reporting Lab: [facility] [address] [place] [facility] [address] Performing Lab: [facility] [address] [place] [facility] [address] URINALYS LEUKOCYTE 250 04/26 Specimen Type : URINE [place] IS ESTERASE No comment jennifer red. IS [facility] [PRESENCE] Ordering Pro vider: SYLVIE BONDS IN URINE Report Release d Date/Time: Apr 26, 2022 03:38 AM BY TEST Reporting Lab: [facility] HCS STRIP [address] [place] [facility] [address] Performing Lab: [facility] [address] [place] [facility] [address] CBC & LEUKOCYTES 4.33 4.0 - 11.0 02/15 Specimen T ype: BLOOD [place] DIFF [#/VOLUME] /2021 Comment: Aut omated Differential Performed IS [facility] IN BLOOD Ordering Provi tracy: MONICA RODRIGUEZ BY Report Released Date/Time: Aug 14, 2021 11:15 AM AUTOMATED Reporting Lab : [facility] COUNT [address] [place] [facility] [address] Performing Lab: [facility] [address] [place] [facility] [address] CBC & ERYTHROCYT 3.93 4.6 - 6.2 02/15 L Specimen Ty pe: BLOOD [place] DIFF ES /2021 Comment: Automa armand Differential Performed IS [facility] [#/VOLUME] Ordering Pro vider: MONICA RODRIGUEZ IN BLOOD Report Release d Date/Time: Aug 14, 2021 11:15 AM BY Reporting Lab: [facility] AUTOMATED [address] [facility] [address] COUNT Performing Lab: [facility] [address] [place] [address] CBC & HEMOGLOBIN 13.2 13.5 - 02/15 L Specimen Type : BLOOD [place] DIFF [MASS/VOLU 17.9 /2021 Comment: Aut omated Differential Performed IS [facility] ME] IN Ordering Provid er: MONICA RODRIGUEZ BLOOD Report Released Date/Time: Aug 14, 2021 11:15 AM Reporting Lab: [facility] [address] [place] [facility] [address] Performing Lab: [facility] [address] [place] [facility] [address] CBC & HEMATOCRIT 39.1 41 - 54 02/15 L Specimen Type : BLOOD [place] DIFF [VOLUME /2021 Comment: Automa armand Differential Performed IS [facility] FRACTION] Ordering Prov ider: MONICA RODRIGUEZ OF BLOOD Report Release d Date/Time: Aug 14, 2021 11:15 AM BY Reporting Lab: [facility] AUTOMATED [address] [facility] [address] COUNT Performing Lab: [facility] [address] [place] [facility] [address] CBC & MCV 99.5 80 - 100 02/15 Specimen Type: BLOOD [place] DIFF [ENTITIC /2021 Comment: Autom ated Differential Performed IS [facility] VOLUME] BY Ordering Pro vider: MONICA RODRIGUEZ AUTOMATED Report Releas ed Date/Time: Aug 14, 2021 11:15 AM COUNT Reporting Lab: [facility] [address] [place] [facility] [address] Performing Lab: [facility] [address] [place] [facility] [address] CBC & MCH 33.6 27 - 33 02/15 H Specimen Type: B LOOD [place] DIFF [ENTITIC /2021 Comment: Autom ated Differential Performed IS [facility] MASS] BY Ordering Provi tracy: MONICA RODRIGUEZ AUTOMATED Report Releas ed Date/Time: Aug 14, 2021 11:15 AM COUNT Reporting Lab: [facility] [address] [place] [facility] [address] Performing Lab: [facility] [address] [place] [facility] [address] CBC & MCHC 33.8 32.0 - 02/15 Specimen Type: B LOOD [place] DIFF [MASS/VOLU 37.5 /2021 Comment: Aut omated Differential Performed IS [facility] ME] BY Ordering Provid er: MONICA RODRIGUEZ AUTOMATED Report Releas ed Date/Time: Aug 14, 2021 11:15 AM COUNT Reporting Lab: [facility] [address] [place] [place] [address] Performing Lab: [facility] [address] [place] [place] [address] CBC & PLATELETS 270 150 - 400 02/15 Specimen Typ e: BLOOD [place] DIFF [#/VOLUME] /2021 Comment: Aut omated Differential Performed IS [facility] IN BLOOD Ordering Provi tracy: MONICA RODRIGUEZ BY Report Released Date/Time: Aug 14, 2021 11:15 AM AUTOMATED Reporting Lab : [facility] COUNT [address] [place] [place] [address] Performing Lab: [facility] [address] [place] [facility] [address] CBC & PLATELET 10.0 7.4 - 10.4 02/15 Specimen Typ e: BLOOD [place] DIFF MEAN /2021 Comment: Automa armand Differential Performed IS [facility] VOLUME Ordering Provid er: MONICA RODRIGUEZ [ENTITIC Report Release d Date/Time: Aug 14, 2021 11:15 AM VOLUME] IN Reporting La b: [facility] BLOOD BY [address] [facility] [address] AUTOMATED Performing La b: [facility] COUNT [address] [place] [place] [address] CBC & NEUTROPHIL 65.0 02/15 Specimen Type : BLOOD [place] DIFF S/100 /2021 Comment: Automa armand Differential Performed IS [facility] LEUKOCYTES Ordering Pro vider: MONICA RODRIGUEZ IN BLOOD Report Release d Date/Time: Aug 14, 2021 11:15 AM BY MANUAL Reporting Lab : [facility] COUNT [address] [place] [facility] [address] Performing Lab: [facility] [address] [place] [facility] [address] CBC & LYMPHOCYTE 22.6 02/15 Specimen Type : BLOOD [place] DIFF S/100 /2021 Comment: Automa armand Differential Performed IS [facility] LEUKOCYTES Ordering Pro vider: MONICA RODRIGUEZ IN BLOOD Report Release d Date/Time: Aug 14, 2021 11:15 AM BY MANUAL Reporting Lab : [facility] COUNT [address] [place] [facility] [address] Performing Lab: [facility] [address] [place] [facility] [address] CBC & MONOCYTES/ 9.9 02/15 Specimen Type : BLOOD [place] DIFF 100 /2021 Comment: Automa armand Differential Performed IS [facility] LEUKOCYTES Ordering Pro vider: MONICA RODRIGUEZ IN BLOOD Report Release d Date/Time: Aug 14, 2021 11:15 AM BY Reporting Lab: [facility] AUTOMATED ONE [facility] [address] COUNT Performing Lab: [facility] [address] [place] [facility] [address] CBC & EOSINOPHIL 1.8 02/15 Specimen Type : BLOOD [place] DIFF S/100 Comment: Automa armand Differential Performed IS [facility] LEUKOCYTES Ordering Pro vider: MONICA RODRIGUEZ IN BLOOD Report Release d Date/Time: Aug 14, 2021 11:15 AM BY Reporting Lab: [facility] AUTOMATED ONE [facility] [address] COUNT Performing Lab: [facility] [address] [place] [facility] [address] CBC & BASOPHILS/ 0.2 02/15 Specimen Type : BLOOD [place] DIFF 100 Comment: Automa armand Differential Performed IS [facility] LEUKOCYTES Ordering Pro vider: MONICA RODRIGUEZ IN BLOOD Report Release d Date/Time: Aug 14, 2021 11:15 AM BY MANUAL Reporting Lab : [facility] COUNT [address] [place] [facility] [address] Performing Lab: [facility] [address] [place] [facility] [address] CBC & ERYTHROCYT 13.1 11.5 - 02/15 Specimen Type : BLOOD [place] DIFF E 14.5 Comment: Automa armand Differential Performed IS [facility] DISTRIBUTI Ordering Pro vider: MONICA RODRIGUEZ ON WIDTH Report Release d Date/Time: Aug 14, 2021 11:15 AM [RATIO] BY Reporting La b: [facility] AUTOMATED ONE [facility] [address] COUNT Performing Lab: [facility] [address] [place] [facility] [address] CBC & LYMPHOCYTE 0.98 1.0 - 4.0 02/15 L Specimen Ty pe: BLOOD [place] DIFF S /2021 Comment: Automa armand Differential Performed IS [facility] [#/VOLUME] Ordering Pro vider: MONICA RODRIGUEZ IN BLOOD Report Release d Date/Time: Aug 14, 2021 11:15 AM BY Reporting Lab: [facility] AUTOMATED ONE [facility] [address] [facility] [address] COUNT Performing Lab: [facility] [address] [place] [address] CBC & MONOCYTES 0.43 0.1 - 1.0 02/15 Specimen Typ e: BLOOD [place]FF [#/VOLUME] /2021 Comment: Aut omated Differential Performed IS [facility] IN BLOOD Ordering Provi tracy: MONICA RODRIGUEZ BY Report Released Date/Time: Aug 14, 2021 11:15 AM AUTOMATED Reporting Lab : [facility] COUNT [address] [place] [facility] [address] Performing Lab: [facility] [address] [place] [facility] [address] CBC & NEUTROPHIL 2.81 2.0 - 7.7 02/15 Specimen Ty pe: BLOOD [place] DIFF S /2021 Comment: Automa armand Differential Performed IS [facility] [#/VOLUME] Ordering Pro vider: MONICA RODRIGUEZ IN BLOOD Report Release d Date/Time: Aug 14, 2021 11:15 AM BY Reporting Lab: [facility] AUTOMATED ONE [facility] [address] COUNT Performing Lab: [facility] [address] [place] [facility] [address] CBC & EOSINOPHIL 0.08 0 - 0.5 02/15 Specimen Type : BLOOD [place] DIFF S /2021 Comment: Automa armand Differential Performed IS [facility] [#/VOLUME] Ordering Pro vider: MONICA RODRIGUEZ IN BLOOD Report Release d Date/Time: Aug 14, 2021 11:15 AM BY Reporting Lab: [facility] AUTOMATED [address] [facility] [address] COUNT Performing Lab: [facility] [address] [place] [facility] [address] CBC & BASOPHILS 0.01 0 - 0.2 02/15 Specimen Type: BLOOD [place] DIFF [#/VOLUME] /2021 Comment: Aut omated Differential Performed IS [facility] IN BLOOD Ordering Provi tracy: MONICA RODRIGUEZ BY Report Released Date/Time: Aug 14, 2021 11:15 AM AUTOMATED Reporting Lab : [facility] COUNT [address] [place] [facility] [address] Performing Lab: [facility] [address] [place] [address] CBC & IG(META,MY 0.5 02/15 Specimen Type : BLOOD [place] DIFF OMID,PRO) /2021 Comment: Autom ated Differential Performed IS [facility] Ordering Provid er: MONICA RODRIGUEZ Report Released Date/Time: Aug 14, 2021 11:15 AM Reporting Lab: [facility] [address] [place] [address] Performing Lab: [facility] [address] [place] [facility] [address] CBC & IMMATURE 0.02 0 - 0.1 02/15 Specimen Type: BLOOD [place] DIFF GRANULOCYT /2021 Comment: Aut omated Differential Performed IS [facility] ES Ordering Provid er: MONICA RODRIGUEZ [PRESENCE] Report Relea sed Date/Time: Aug 14, 2021 11:15 AM IN BLOOD Reporting Lab: [facility] BY [address] [place] [address] AUTOMATED Performing La b: [facility] COUNT [address] [place] [address] COMPREHE CREATININE 1.1 0.7 - 1.2 02/15 Specimen T ype: PLASMA [place] NSIVE [MASS/VOLU /2021 No comment en tered. IS [facility] ME] IN Ordering Provi tracy: MONICA RODRIGUEZ SERUM OR Report Release d Date/Time: Aug 14, 2021 11:15 AM PANEL+MG PLASMA Reporting Lab: [facility] [address] [place] [facility] [address] Performing Lab: [facility] [address] [place] [facility] [address] COMPREHE UREA 15 8 - 26 02/15 Specimen Type: PLASMA [place] NSIVE NITROGEN /2021 No comment ente red. IS [facility]I [MASS/VOLU Ordering Pr ovider: MONICA RODRIGUEZ ME] IN Report Released Date/Time: Aug 14, 2021 11:15 AM PANEL+MG SERUM OR Reporting Lab : [facility] PLASMA [address] [place] [facility] [address] Performing Lab: [facility] [address] [place] [facility] [address] COMPREHE GLUCOSE 96 74 - 100 02/15 Specimen Type: PLASMA [place] NSIVE [MASS/VOLU /2021 No comment en tered. IS [facility] ME] IN Ordering Provi tracy: MONICA RODRIGUEZ SERUM OR Report Release d Date/Time: Aug 14, 2021 11:15 AM PANEL+MG PLASMA Reporting Lab: [facility] [address] [place] [facility] [address] Performing Lab: [facility] [address] [place] [facility] [address] COMPREHE SODIUM 138 136 - 145 02/15 Specimen Type : PLASMA [place] NSIVE [MOLES/VOL /2021 No comment en tered. IS [facility] MET[facility] UME] IN Ordering Provi tracy: MONICA RODRIGUEZ SERUM OR Report Release d Date/Time: Aug 14, 2021 11:15 AM PANEL+MG PLASMA Reporting Lab: [facility] [address] [place] [facility] [address] Performing Lab: [facility] [address] [facility] [address] COMPREHE POTASSIUM 4.0 3.5 - 5.1 02/15 Specimen Ty pe: PLASMA [place] NSIVE [MOLES/VOL /2021 No comment en tered. IS [facility] UME] IN Ordering Provi tracy: MONICA RODRIGUEZ SERUM OR Report Release d Date/Time: Aug 14, 2021 11:15 AM PANEL+MG PLASMA Reporting Lab: [facility] [address] [place] [facility] [address] Performing Lab: [facility] [address] [place] [facility] [address] COMPREHE CHLORIDE 104 98 - 107 02/15 Specimen Type : PLASMA [place] NSIVE [MOLES/VOL No comment en tered. IS [facility] MET[facility] UME] IN Ordering Provi tracy: MONICA RODRIGUEZ SERUM OR Report Release d Date/Time: Aug 14, 2021 11:15 AM PANEL+MG PLASMA Reporting Lab: [facility] [address] [place] [facility] [address] Performing Lab: [facility] [address] [place] [facility] [address] COMPREHE CARBON 26 22 - 29 02/15 Specimen Type: PLASMA [place] NSIVE DIOXIDE No comment ente red. IS [facility] TOTAL Ordering Provi tracy: MONICA RODRIGUEZ [MOLES/VOL Report Relea sed Date/Time: Aug 14, 2021 11:15 AM PANEL+MG UME] IN Reporting Lab: [facility] SERUM OR [address] [place] [facility] [address] PLASMA Performing Lab: [facility] [address] [place] [facility] [address] COMPREHE CALCIUM 9.6 8.4 - 10.2 02/15 Specimen Typ e: PLASMA [place] NSIVE [MASS/VOLU /2021 No comment en tered. IS [facility] ME] IN Ordering Provi tracy: MONICA RODRIGUEZ SERUM OR Report Release d Date/Time: Aug 14, 2021 11:15 AM PANEL+MG PLASMA Reporting Lab: [facility] [address] [place] [facility] [address] Performing Lab: [facility] [address] [place] [facility] [address] COMPREHE PROTEIN 7.5 6.0 - 8.3 02/15 Specimen Type : PLASMA [place] NSIVE [MASS/VOLU /2021 No comment en tered. IS [facility] ME] IN Ordering Provi tracy: MONICA RODRIGUEZ SERUM OR Report Release d Date/Time: Aug 14, 2021 11:15 AM PANEL+MG PLASMA Reporting Lab: [facility] [address] [place] [facility] [address] Performing Lab: [facility] [address] [place] [facility] [address] COMPREHE ALBUMIN 4.0 3.5 - 5.2 02/15 Specimen Type : PLASMA [place] NSIVE [MASS/VOLU /2021 No comment en tered. IS [facility] ME] IN Ordering Provi tracy: MONICA RODRIGUEZ SERUM OR Report Release d Date/Time: Aug 14, 2021 11:15 AM PANEL+MG PLASMA Reporting Lab: [facility] [address] [place] [facility] [address] Performing Lab: [facility] [address] [place] [facility] [address] COMPREHE BILIRUBIN. 0.8 0.2 - 1.2 02/15 Specimen T ype: PLASMA [place] NSIVE TOTAL /2021 No comment enter ed. IS [facility] [MASS/VOLU Ordering Pr ovider: MONICA RODRIGUEZ] IN Report Released Date/Time: Aug 14, 2021 11:15 AM PANEL+MG SERUM OR Reporting Lab : [facility] PLASMA [address] [place] [facility] [address] Performing Lab: [facility] [address] [place] [facility] [address] COMPREHE MAGNESIUM 2.0 1.6 - 2.6 02/15 Specimen Ty pe: PLASMA [place] NSIVE [MASS/VOLU /2021 No comment en tered. IS [facility] ME] IN Ordering Provi tracy: MONICA RODRIGUEZ SERUM OR Report Release d Date/Time: Aug 14, 2021 11:15 AM PANEL+MG PLASMA Reporting Lab: [facility] [address] [place] [facility] [address] Performing Lab: [facility] [address] [place] [facility] [address] COMPREHE ANION GAP 8 5 - 15 02/15 Specimen Type : PLASMA [place] NSIVE IN SERUM /2021 No comment ente red. IS [facility] METAB[facility]I OR PLASMA Ordering Pro vider: MONICA RODRIGUEZ Report Released Date/Time: Aug 14, 2021 11:15 AM PANEL+MG Reporting Lab: [facility] [address] [place] [facility] [address] Performing Lab: [facility] [address] [place] [facility] [address] COMPREHE ALKALINE 62 40 - 150 02/15 Specimen Type : PLASMA [place] NSIVE PHOSPHATAS /2021 No comment en tered. IS [facility] METABOLI E Ordering Provi tracy: MONICA RODRIGUEZ [ENZYMATIC Report Relea sed Date/Time: Aug 14, 2021 11:15 AM PANEL+MG ACTIVITY/V Reporting L ab: [facility] OLUME] IN ONE [facility] [address] SERUM OR Performing Lab : [facility] PLASMA [address] [place] [facility] [address] COMPREHE ALANINE 13 <55 - 55 02/15 Specimen Type: PLASMA [place] NSIVE AMINOTRANS /2021 No comment en tered. IS [facility] FERASE Ordering Provi tracy: MONICA RODRIGUEZ [ENZYMATIC Report Relea sed Date/Time: Aug 14, 2021 11:15 AM PANEL+MG ACTIVITY/V Reporting L ab: [facility] OLUME] IN ONE [facility] [address] SERUM OR Performing Lab : [facility] PLASMA [address] [place] [facility] [address] COMPREHE ASPARTATE 19 <34 - 34 02/15 Specimen Typ e: PLASMA [place] NSIVE AMINOTRANS /2021 No comment en tered. IS [facility] FERASE Ordering Provi tracy: MONICA RODRIGUEZ [ENZYMATIC Report Relea sed Date/Time: Aug 14, 2021 11:15 AM PANEL+MG ACTIVITY/V Reporting L ab: [facility] OLUME] IN ONE [facility] [address] SERUM OR Performing Lab : [facility] PLASMA [address] [place] [facility] [address] COMPREHE GLOMERULAR 70 60 02/15 Specimen Typ e: PLASMA [place] NSIVE FILTRATION No comment en tered. IS [facility] RATE/1.73 Ordering Pro vider: MONICA RODRIGUEZ SQ Report Released Date/Time: Aug 14, 2021 11:15 AM PANEL+MG M.PREDICTE Reporting L ab: [facility] D [VOLUME [facility] [address] RATE/AREA] Performing L ab: [facility] IN SERUM, ONE [facility] [address] PLASMA OR BLOOD BY CREATININE -BASED FORMULA (CKD-EPI) IRON IRON 101 65 - 175 07/26 Specimen Type: PLASMA [facility] [MASS/VOLU /2020 No comment en tered. (CBOC) ME] IN Ordering Provid er: EVANS SMALL SERUM OR Report Release d Date/Time: Jul 26, 2021 10:58 AM PLASMA Reporting Lab: [facility] [address] [place] [facility] [address] Performing Lab: [facility] [address] [place] [facility] [address] IRON IRON 200 250 - 425 12/30 L Specimen Type: PLASMA [facility] BINDING /2020 No comment enter ed. (CBOC) CAPACITY Ordering Provi tracy: EVANS SMALL [MASS/VOLU Report Relea sed Date/Time: Jul 26, 2021 10:58 AM ME] IN Reporting Lab: [facility] SERUM OR ONE [facility] [address] PLASMA Performing Lab: [facility] [address] [place] [facility] [address] IRON FERRITIN 56.1 21.8 - 07/26 Specimen Type: PLASMA [facility] [MASS/VOLU 274.7 No comment en tered. (CBOC) ME] IN Ordering Provid er: EVANS SMALL SERUM OR Report Release d Date/Time: Jul 26, 2021 10:58 AM PLASMA Reporting Lab: [facility] [address] [place] [address] Performing Lab: [facility] [address] [place] [place] [address] IRON IRON 51 20 - 50 12/30 H Specimen Type: Mann [facility] SATURATION No comment en tered. (CBOC) Ordering Provid er: EVANS SMALL Report Released Date/Time: Jul 26, 2021 10:58 AM Reporting Lab: [facility] [address] [place] [address] Performing Lab: [facility] [address] [place] [address] IRON TRANSFERRI 160 163 - 382 12/30 L Specimen Ty pe: PLASMA [facility] N No comment enter ed. (CBOC) [MASS/VOLU Ordering Pro vider: EVANS SMALL ME] IN Report Released Date/Time: Jul 26, 2021 10:58 AM SERUM OR Reporting Lab: [facility] PLASMA [address] [place] [address] Performing Lab: [facility] [address] [place] [address] BASIC CREATININE 1.1 0.7 - 1.2 12 Specimen Ty pe: PLASMA [facility] [MASS/VOLU /2020 No comment e ntered. (CBOC) C ME] IN Ordering Provid er: EVANS SMALL PANEL+MG SERUM OR Report Releas ed Date/Time: Jul 26, 2021 10:58 AM PLASMA Reporting Lab: [facility] [address] [place] [address] Performing Lab: [facility] [address] [place] [place] [address] BASIC UREA 15 8 - 26 12 Specimen Type: Mann [facility] NITROGEN /2020 No comment ent ered. (CBOC) C [MASS/VOLU Ordering Pro vider: EVANS SMALL PANEL+MG ME] IN Report Release d Date/Time: Jul 26, 2021 10:58 AM SERUM OR Reporting Lab: [facility] PLASMA [address] [place] [address] Performing Lab: [facility] [address] [place] [address] BASIC GLUCOSE 91 74 - 100 12 Specimen Type: PLASMA [facility] [MASS/VOLU /2020 No comment e ntered. (CBOC) C ME] IN Ordering Provid er: EVANS SMALL PANEL+MG SERUM OR Report Releas ed Date/Time: Jul 26, 2021 10:58 AM PLASMA Reporting Lab: [facility] [address] [place] [facility] [address] Performing Lab: [facility] ONE [facility] [address] [place] [address] BASIC SODIUM 138 136 - 145 07/26 Specimen Type: PLASMA [facility] [MOLES/VOL /2020 No comment e ntered. (CBOC) C UME] IN Ordering Provid er: GEOVANNYKALANIEVANSANDREW MYLES PANEL+MG SERUM OR Report Releas ed Date/Time: Jul 26, 2021 10:58 AM PLASMA Reporting Lab: [facility] [address] [facility] [place] [address] [facility] [address] Performing Lab: [facility] [address] [facility] [address] BASIC POTASSIUM 4.2 3.5 - 5.1 07/26 Specimen Typ e: PLASMA EDUARDO METABOLI [MOLES/VOL /2020 No comment e ntered. (CBOC) C UME] IN Ordering Provid er: GEOVANNYKALANIEVANS SHAR PANEL+MG SERUM OR Report Releas ed Date/Time: Jul 26, 2021 10:58 AM PLASMA Reporting Lab: [facility] [address] [facility] [address] Performing Lab: [facility] [address] [facility] [address] BASIC CHLORIDE 101 98 - 107 07/26 Specimen Type: PLASMA EDUARDO METABOLI [MOLES/VOL /2020 No comment e ntered. (CBOC) C UME] IN Ordering Provid er: EVANS SMALL PANEL+MG SERUM OR Report Releas ed Date/Time: Jul 26, 2021 10:58 AM PLASMA Reporting Lab: [facility] [address] [place] [facility] [address] Performing Lab: [facility] [address] [facility] [place] [address] [facility] [address] BASIC CARBON 28 22 - 29 07/26 Specimen Type: P DEBORAHMA EDUARDO METABOLI No comment ent ered. (CBOC) C TOTAL Ordering Provid er: EVANS SMALL PANEL+MG [MOLES/VOL Report Rele ased Date/Time: Jul 26, 2021 10:58 AM UME] IN Reporting Lab: [facility] [address] [facility] [address] PLASMA Performing Lab : [facility] [address] [place] [facility] [address] BASIC CALCIUM 9.7 8.4 - 10.2 07/26 Specimen Type : PLASMA EDUARDO METABOLI [MASS/VOLU /2020 No comment e ntered. (CBOC) C ME] IN Ordering Provid er: EVANS SMALL PANEL+MG SERUM OR Report Releas ed Date/Time: Jul 26, 2021 10:58 AM PLASMA Reporting Lab: [facility] [address] [place] [facility] [address] Performing Lab: [facility] [address] [place] [facility] [address] BASIC MAGNESIUM 2.0 1.6 - 2.6 07/26 Specimen Typ e: PLASMA EDUARDO METABOLI [MASS/VOLU /2020 No comment e ntered. (CBOC) C ME] IN Ordering Provid er: EVANS SMALL PANEL+MG SERUM OR Report Releas ed Date/Time: Jul 26, 2021 10:58 AM PLASMA Reporting Lab: [facility] [address] [place] [facility] [address] Performing Lab: [facility] [address] [place] [facility] [address] BASIC ANION GAP 9 5 - 15 07/26 Specimen Type: PLASMA EDUARDO METABOLI IN SERUM /2020 No comment ent ered. (CBOC) C OR PLASMA Ordering Prov ider: EVANS SMALL PANEL+MG Report Release d Date/Time: Jul 26, 2021 10:58 AM Reporting Lab: [facility] [address] [place] [facility] [address] Performing Lab: [facility] [address] [place] [facility] [address] BASIC GLOMERULAR 65 60 07/26 Specimen Type : PLASMA EDUARDO METABOLI FILTRATION /2020 No comment e ntered. (CBOC) C RATE/1.73 Ordering Prov ider: EVANS SMALL PANEL+MG SQ Report Release d Date/Time: Jul 26, 2021 10:58 AM M.PREDICTE Reporting La b: [facility] D [VOLUME [address] [facility] [address] RATE/AREA] Performing L ab: [facility] IN SERUM, ONE [facility] [address] [facility] [address] PLASMA OR BLOOD BY CREATININE -BASED FORMULA (CKD-EPI) LIPID CHOLESTERO 140 <199 - 199 07/26 Specimen T ype: PLASMA EDUARDO PANEL,NO L /2020 No comment ente red. (CBOC) N-FASTIN [MASS/VOLU Ordering Pr ovider: EVANS SMALL] IN Report Released Date/Time: Jul 26, 2021 10:58 AM SERUM OR Reporting Lab: [facility] PLASMA [address] [place] [facility] [address] Performing Lab: [facility] [address] [place] [facility] [address] LIPID CHOLESTERO 44 40 07/26 Specimen Type : PLASMA EDUARDO PANEL,NO L IN HDL /2020 No comment ent ered. (CBOC) N-FASTIN [MASS/VOLU Ordering Pr ovider: EVANS SMALL] IN Report Released Date/Time: Jul 26, 2021 10:58 AM SERUM OR Reporting Lab: [facility] PLASMA [address] [place] [facility] [address] Performing Lab: [facility] [address] [place] [facility] [address] LIPID CHOLESTERO 78 <99 - 99 07/26 Specimen Typ e: PLASMA EDUARDO PANEL,NO L IN LDL /2020 No comment ent ered. (CBOC) N-FASTIN [MASS/VOLU Ordering Pr ovider: EVANS SMALL] IN Report Released Date/Time: Jul 26, 2021 10:58 AM SERUM OR Reporting Lab: [facility] PLASMA BY ONE [facility] [address] CALCULATIO Performing L ab: [facility] N [address] [place] [facility] [address] LIPID CHOLESTERO 18 <29 - 29 07/26 Specimen Typ e: PLASMA EDUARDO PANEL,NO L IN VLDL /2020 No comment en tered. (CBOC) N-FASTIN [MASS/VOLU Ordering Pr ovider: EVANS SMALL] IN Report Released Date/Time: Jul 26, 2021 10:58 AM SERUM OR Reporting Lab: [facility] PLASMA BY ONE [facility] [address] CALCULATIO Performing L ab: [facility] N [address] [place] [facility] [address] LIPID CHOLESTERO 96 <129 - 129 07/26 Specimen T ype: PLASMA EDUARDO PANEL,NO L NON HDL /2020 No comment en tered. (CBOC) N-FASTIN [MASS/VOLU Ordering Pr ovider: EVANS SMALL] IN Report Released Date/Time: Jul 26, 2021 10:58 AM SERUM OR Reporting Lab: [facility] PLASMA [address] [place] [address] Performing Lab: [facility] [address] [place] [address] LIPID TRIGLYCERI 92 <149 - 149 07/26 Specimen T ype: PLASMA EDUARDO PANEL,NO DE No comment ente red. (CBOC) N-FASTIN [MASS/VOLU Ordering Pr ovider: EVANS SMALL] IN Report Released Date/Time: Jul 26, 2021 10:58 AM SERUM OR Reporting Lab: [facility] PLASMA [address] [place] [address] Performing Lab: [facility] [address] [place] [address] CBC LEUKOCYTES 4.47 4.0 - 11.0 07/26 Specimen T ype: BLOOD EDUARDO [#/VOLUME] /2020 No comment en tered. (CBOC) IN BLOOD Ordering Provi tracy: EVANS SMALL BY Report Released Date/Time: Jul 26, 2021 10:58 AM AUTOMATED Reporting Lab : [facility] COUNT [address] [place] [address] Performing Lab: [facility] [address] [place] [address] CBC ERYTHROCYT 4.35 4.6 - 6.2 07/26 L Specimen Ty pe: BLOOD EDUARDO ES /2020 No comment enter ed. (CBOC) [#/VOLUME] Ordering Pro vider: EVANS SMALL IN BLOOD Report Release d Date/Time: Jul 26, 2021 10:58 AM BY Reporting Lab: [facility] AUTOMATED [address] [place] [address] COUNT Performing Lab: [facility] [address] [place] [address] CBC HEMOGLOBIN 15.1 13.5 - 07/26 Specimen Type : BLOOD EDUARDO [MASS/VOLU 17.9 No comment en tered. (CBOC) ME] IN Ordering Provid er: EVANS SMALL BLOOD Report Released Date/Time: Jul 26, 2021 10:58 AM Reporting Lab: [facility] [address] [place] [address] Performing Lab: [facility] [address] [place] [address] CBC HEMATOCRIT 45.1 41 - 54 1230 Specimen Type : BLOOD EDUARDO [VOLUME /2020 No comment enter ed. (CBOC) FRACTION] Ordering Prov ider: EVANS SMALL OF BLOOD Report Release d Date/Time: Jul 26, 2021 10:58 AM BY Reporting Lab: [facility] AUTOMATED [address] [facility] [address] COUNT Performing Lab: [facility] [address] [place] [address] CBC MCV 103.7 80 - 100 12/30 H Specimen Type: BLOOD EDUARDO [ENTITIC /2020 No comment ente red. (CBOC) VOLUME] BY Ordering Pro vider: EVANS SMALL AUTOMATED Report Releas ed Date/Time: Jul 26, 2021 10:58 AM COUNT Reporting Lab: [facility] [address] [place] [address] Performing Lab: [facility] [address] [place] [address] CBC MCH 34.7 27 - 33 12/30 H Specimen Type: B LOOD EDUARDO [ENTITIC /2020 No comment ente red. (CBOC) MASS] BY Ordering Provi tracy: EVANS SMALL AUTOMATED Report Releas ed Date/Time: Jul 26, 2021 10:58 AM COUNT Reporting Lab: [facility] [address] [place] [address] Performing Lab: [facility] [address] [place] [address] CBC MCHC 33.5 32.0 - 12/ Specimen Type: B LOOD EDUARDO [MASS/VOLU 37.5 /2020 No comment en tered. (CBOC) ME] BY Ordering Provid er: EVANS SMALL AUTOMATED Report Releas ed Date/Time: Jul 26, 2021 10:58 AM COUNT Reporting Lab: [facility] [address] [place] [address] Performing Lab: [facility] [address] [place] [address] CBC PLATELETS 254 150 - 400 12 Specimen Typ e: BLOOD EDUARDO [#/VOLUME] /2020 No comment en tered. (CBOC) IN BLOOD Ordering Provi tracy: EVANS SMALL BY Report Released Date/Time: Jul 26, 2021 10:58 AM AUTOMATED Reporting Lab : [facility] COUNT [address] [place] [address] Performing Lab: [facility] [address] [place] [place] [address] CBC PLATELET 10.0 7.4 - 10.4 07/26 Specimen Typ e: BLOOD EDUARDO MEAN /2020 No comment enter ed. (CBOC) VOLUME Ordering Provid er: EVANS SMALL [ENTITIC Report Release d Date/Time: Jul 26, 2021 10:58 AM VOLUME] IN Reporting La b: [facility] BLOOD BY [address] [place] [facility] [address] AUTOMATED Performing La b: [facility] COUNT [address] [place] [address] CBC ERYTHROCYT 13.2 11.5 - 07/26 Specimen Type : BLOOD EDUARDO E 14.5 No comment enter ed. (CBOC) DISTRIBUTI Ordering Pro vider: EVANS SMALL ON WIDTH Report Release d Date/Time: Jul 26, 2021 10:58 AM [RATIO] BY Reporting La b: [facility] AUTOMATED [address] [place] [facility] [address] COUNT Performing Lab: [facility] [address] [place] [address] BASIC CREATININE 1.1 0.7 - 1.2 07/26 Specimen Ty pe: PLASMA [place] METABOLI [MASS/VOLU /2020 No comment e ntered. IS [facility] ME] IN Ordering Provid er: MONICA RODRIGUEZ+MG SERUM OR Report Releas ed Date/Time: Jan 10, 2021 11:21 AM PLASMA Reporting Lab: [facility] [address] [place] [address] Performing Lab: [facility] [address] [place] [address] BASIC UREA 14 8 - 26 07/26 Specimen Type: P LASMA [place] METABOLI NITROGEN No comment ent ered. IS [facility] C [MASS/VOLU Ordering Pro vider: MONICA RODRIGUEZ PANEL+MG ME] IN Report Release d Date/Time: Jan 10, 2021 11:21 AM SERUM OR Reporting Lab: [facility] PLASMA [address] [place] [address] Performing Lab: [facility] [address] [place] [address] BASIC GLUCOSE 91 74 - 100 07/26 Specimen Type: PLASMA [place] METABOLI [MASS/VOLU /2020 No comment e [facility]tered. [facility] ME] IN Ordering Provid er: MONICA RODRIGUEZ PANEL+MG SERUM OR Report Releas ed Date/Time: Jan 10, 2021 11:21 AM PLASMA Reporting Lab: [facility] [address] [place] [facility] [address] Performing Lab: [facility] [address] [place] [facility] [address] BASIC SODIUM 139 136 - 145 07/26 Specimen Type: PLASMA [place] METABOLI [MOLES/VOL /2020 No comment e ntered. IS [facility] C UME] IN Ordering Provid er: MONICA RODRIGUEZ PANEL+MG SERUM OR Report Releas ed Date/Time: Jan 10, 2021 11:21 AM PLASMA Reporting Lab: [facility] [address] [place] [facility] [address] Performing Lab: [facility] [address] [place] [facility] [address] BASIC POTASSIUM 4.2 3.5 - 5.1 07/26 Specimen Typ e: PLASMA [place] METABOLI [MOLES/VOL /2020 No comment e ntered. IS [facility] C UME] IN Ordering Provid er: MONICA RODRIGUEZ PANEL+MG SERUM OR Report Releas ed Date/Time: Jan 10, 2021 11:21 AM PLASMA Reporting Lab: [facility] [address] [place] [facility] [address] Performing Lab: [facility] [address] [place] [facility] [address] BASIC CHLORIDE 103 98 - 107 07/26 Specimen Type: PLASMA [place] METABOLI [MOLES/VOL /2020 No comment e ntered. IS [facility] C UME] IN Ordering Provid er: MONICA RODRIGUEZ PANEL+MG SERUM OR Report Releas ed Date/Time: Jan 10, 2021 11:21 AM PLASMA Reporting Lab: [facility] [address] [place] [facility] [address] Performing Lab: [facility] [address] [place] [facility] [address] BASIC CARBON 28 22 - 29 07/26 Specimen Type: P LASMA [place] METABOLI DIOXIDE, /2020 No comment ent ered. IS [facility] TOTAL Ordering Provid er: MONICA RODRIGUEZ PANEL+MG [MOLES/VOL Report Rele ased Date/Time: Jan 10, 2021 11:21 AM UME] IN Reporting Lab: [facility] SERUM OR [address] [place] [facility] [address] PLASMA Performing Lab: [facility] [address] [place] [address] BASIC CALCIUM 9.6 8.4 - 10.2 07/26 Specimen Type : PLASMA [place] METABOLI [MASS/VOLU /2020 No comment e ntered. IS [facility] ME] IN Ordering Provid er: MONICA RODRIGUEZ PANEL+MG SERUM OR Report Releas ed Date/Time: Jan 10, 2021 11:21 AM PLASMA Reporting Lab: [facility] [address] [place] [facility] [address] Performing Lab: [facility] [address] [place] [facility] [address] BASIC MAGNESIUM 2.1 1.6 - 2.6 07/26 Specimen Typ e: PLASMA [place] METABOLI [MASS/VOLU /2020 No comment e ntered. IS [facility] C ME] IN Ordering Provid er: MONICA RODRIGUEZ PANEL+MG SERUM OR Report Releas ed Date/Time: Jan 10, 2021 11:21 AM PLASMA Reporting Lab: [facility] [address] [place] [facility] [address] Performing Lab: [facility] [address] [place] [facility] [address] BASIC ANION GAP 8 5 - 15 07/26 Specimen Type: PLASMA [place] METABOLI IN SERUM /2020 No comment ent ered. IS [facility] C OR PLASMA Ordering Prov ider: MONICA RODRIGUEZ+MG Report Release d Date/Time: Jan 10, 2021 11:21 AM Reporting Lab: [facility] [address] [place] [facility] [address] Performing Lab: [facility] [address] [place] [facility] [address] BASIC GLOMERULAR 65 60 07/26 Specimen Type : PLASMA [place] METABOLI FILTRATION /2020 No comment e ntered. IS [facility] C RATE/1.73 Ordering Prov ider: MONICA RODRIGUEZ+MG SQ Report Release d Date/Time: Jan 10, 2021 11:21 AM ALAN Reporting La b: [facility] D [VOLUME [address] [facility] [address] RATE/AREA] Performing L ab: [facility] IN SERUM, ONE [address] [facility] [address] PLASMA OR BLOOD BY CREATININE -BASED FORMULA (CKD-EPI) Vital Signs Combined list of inpatient and outpatient Vital Signs from Department of Defense and Veterans Affairs, ranging from 12 months to all on record, depending upon the facility. Vital Sign Value Date Comments Source SYSTOLIC BLOOD PRESSURE 184 04/30/2022 11:58:02 [place] (CBOC) DIASTOLIC BLOOD PRESSURE 78 04/30/2022 11:58:02 [place] (CBOC) PULSE OXIMETRY 97% 04/30/2022 11:58:[address] (CBOC) WEIGHT 176.2 04/30/2022 11:58:02 [place] (CBOC) BMI 26kg/m2 04/30/2022 11:58:02 [place] (CBOC) PAIN 0 04/30/2022 11:58:02 [place] (CBOC) TEMPERATURE 97.5 04/30/2022 11:58:02 [place] (CBOC) PULSE 50 04/30/2022 11:58:02 [place] (CBOC) RESPIRATION 16 04/30/2022 11:58:02 [place] (CBOC) SYSTOLIC BLOOD PRESSURE 168 04/26/2022 03:27:58 [facility] DIASTOLIC BLOOD PRESSURE 78 04/26/2022 03:27:58 [facility] PULSE OXIMETRY 97% 04/26/2022 03:27:58 [facility] PAIN 5 04/26/2022 03:27:58 [facility] TEMPERATURE 98.2 04/26/2022 03:27:58 [facility] PULSE 63 04/26/2022 03:27:58 [facility] RESPIRATION 17 04/26/2022 03:27:58 [facility] SYSTOLIC BLOOD PRESSURE 136 07/26/2021 10:25:05 [place] (CBOC) DIASTOLIC BLOOD PRESSURE 72 07/26/2021 10:25:05 [...] Type Number For Provider Date Date Visit OFFICE O/P Diagnos WONG LONDONI 12/08 [place] NEW MOD [id number] is: STIN S /2020 [place] A 45-59 MIN ICD-10- HCS 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
with Provide r Comment s: Sensori neural hearing loss, bilater al Outpatient O'HERNESTO, 01/30 [place] Encounter [id number] [facility] PSYTX W PT Diagnos CHIROS,CHR 02/06 [place] 45 MINUTES [id number] is: ISTINE E E R 37 ICD-10- (CBOC) CM F41.9 Anxiety disorde r, unspeci fied
with Provide r Comment s: Exposur e to combat ([facility] [id number] 07) OFFICE O/P Diagnos GABRIELLA,ANT 02/22 [place] EST [id number] is: HONY T ER MINIMAL 11 ICD-10- (CBOC) PROB CM I10 Essenti al (primar y) hyperte nsion<b r/>with Provide r Comment s: Hyperte nsive disorde r ([facility] [id number] 3) OFFICE Diagnos ERNA,[facility] 02/28 [place] CONSULTATI [id number] is: EN L [place] ICD-10- HCS CM R35.1 Nocturi a
w ith Provide r Comment s: Nocturi a PSYTX W PT Diagnos CHIROS,CHR 03/21 [place] 45 MINUTES [id number] is: ISTINE E E R 32 ICD-10- (CBOC) CM F41.9 Anxiety disorde r, unspeci fied
with Provide r Comment s: Exposur e to combat ([facility] [id number] 07) PSYTX W PT Diagnos CHIROS,CHR 04/26 [place] 45 MINUTES [id number] is: ISTINE E O [place] ICD-10- HCS CM F41.9 Anxiety disorde r, unspeci fied
with Provide r Comment s: Exposur e to combat ([facility] [id number] 07) IMMUNIZATI Diagnos MANUEL DANIEL 04/26 [place] ON ADMIN [id number] is: HORACIO [facility] ICD-10- HCS CM Z23 Encount er for immuniz ation<b r/>with Provide r Comment s: Encount er for Immuniz ation Outpatient 05/17 [place] Encounter [id number] [facility] SELF-MGMT Diagnos ODEGARD, 05/19 [place] EDUC & [id number] is: OMAS [facility] TRAIN 1 PT ICD-10- HCS CM H90.3 Sensori neural hearing loss, bilater al
with Provide r Comment s: Sensori neural hearing loss, bilater al PSYTX W PT Diagnos CHIROS,CHR 05/31 [place] 45 MINUTES [id number] is: ISTINE E [facility] ICD-10- HCS CM F41.9 Anxiety disorde r, unspeci fied
with Provide r Comment s: Exposur e to combat ([facility] [id number] 07) PSYTX W PT Diagnos CHIROS,CHR 07/05 [place] 45 MINUTES [id number] is: ISTINE E /2020 O [facility] ICD-10- HCS CM F41.9 Anxiety disorde r, unspeci fied
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
with Provide r Comment s: Exposur e to combat ([facility] [id number] 07[place] [address]-9.61 Diagnos [facility] 10/30 [place] 45 MINUTES [id number] is: ISTINE E E R 17 ICD-10- (CBOC) CM F41.9 Anxiety disorde r, unspeci fied
with Provide r Comment s: Exposur e to combat ([facility] [id number] 07) ADM Diagnos GABRIELLA,ANT 10/30 [place] SARSCV2 [id number] is: HONY T ER 30MCG 34 ICD-10- (CBOC) TRS-SUCR B CM Z23 Encount er for immuniz ation<b r/>with Provide r Comment s: [place] [address]-5 Diagnos TEE CHUN 12/26 [place] PHONE CALL [phone] is: [place] 5-10 MIN ICD-10- HCS CM Z71.89 Other specifi ed counselor camp ing<br/ >with Provide r Comment s: [place] [address]-7.61 Diagnos CHIRO,[facility] 01/01 [place] 45 MINUTES [id number] is: ISTINE E E R 47 ICD-10- (CBOC) CM F41.9 Anxiety disorde r, unspeci fied
with Provide r Comment s: Exposur e to combat ([facility] [id number] 07) HC PRO 72471-5 Diagnos JOHNATHON SEVILLAH 01/10 [place] PHONE CALL [phone] is: EL R [place] 11-20 MIN ICD-10- HCS CM Z71.89 Other specifi ed counselor camp ing<br/ >with Provide r Comment s: Other specifi ed counselor camp ing Outpatient 18490-201/10 [place] Encounter [id number] [facility] [facility] Outpatient 57154-2 VALE,Ray 01/17 [place] Encounter [id number] ERRY /2021 [place] [facility] Outpatient 37243-6.61 VIRGEN BOBO 01/17 [place] Encounter [id number] SSICA L RUDY S [facility] Outpatient 44018-4 BALJINDER POZO 02/15 [place] Encounter [id number] HIA L 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
Provide r Comment s: HHT - Heredit sushila hemorrh agic telangi ectasia ([facility] [id number] 4) [place] [address]-4.61 Diagnos CHIROS,CHR 02/26 [place] 45 MINUTES [id number] is: ISTINE E /2021 E R 36 ICD-10- (CBOC) CM F41.9 Anxiety disorde r, unspeci fied
with Provide r Comment s: Exposur e to combat ([facility] [id number] 07) Outpatient Diagnos MICHELLE WILKINS 02/27 [place] Encounter [id number] is: CA [place] ICD-10- HCS CM G47.9 Sleep disorde r, unspeci fied
with Provide r Comment s: Sleep Disorde r, unspeci fied [place] 95063-6 Diagnos JOE QUIROZ 09/26 [place] PHONE CALL [phone] is: RLES T /2021 [facility] 11-20 MIN ICD-10- HCS CM Z71.89 Other specifi ed counselor camp ing<br/ >with Provide r Comment s: Other specifi ed counselor camp ing Outpatient [id number] TODD, 04/23 [place] Encounter [id number] RA R /2021 [facility] Outpatient 74141-304/23 [place] En[place] [id number] [facility] Outpatient 51716-4 TODD, 04/23 [place] Encounter [id number] RA R /2021 [facility] Outpatient 19986-0.61 04/25 [place] Encounter [id number] [facility] HC PRO 54009-5 Diagnos JERAMIE,VIRGEN 04/25 [place] PHONE CALL [id number] is: SSICA L ER 5-10 MIN 82 ICD-10- (CBOC) CM R31.9 Hematur ia, unspeci fied
with Provide r Comment s: Hematur ia, unspeci fied PULMONARY 02037-4.61 Diagnos POP, 04/26 [place] SERVICE/DE [phone] is: [facility] OCEDURE ICD-10- HCS CM G47.33 Obstruc tive sleep apnea (adult) (pediat gina)
with Provide r Comment s: Obstruc tive Sleep Apnea EMERGENCY 90791-6 Diagnos ISRA BONDS 04/26 [place] DEPT VISIT [phone] is: IN J [facility] ICD-10- HCS CM R31.0 Gross hematur ia
with Provide r Comment s: [place] [address]-8.61 Diagnos CHIROS,CHR 04/30 [place] 45 MINUTES [id number] is: ISTINE E /2021 E R 41 ICD-10- (CBOC) CM F41.9 Anxiety disorde r, unspeci fied
with Provide r Comment s: Exposur e to combat ([facility] [id number]) IMMUNIZATI 79315-8.61 Diagnos DAMMEN,CHRIS 04/30 [place] ON ADMIN [id number] is: N A ER 65 ICD-10- (CBOC) CM Z23 Encount er for immuniz ation<b r/>with Provide r Comment s: Encount er for Immuniz ation OFFICE O/P 89398-1.61 Diagnos KALANI SMALL 04/30 [place] EST LOW [id number] is: ANDREW ER 20-29 MIN 53 ICD-10- SHAR (CBOC ) CM R31.0 Gross hematur ia
with Provide r Comment s: Gross Hematur ia Outpatient 78134-2.61 04/30 [place] Encounter [id number] [facility] Outpatient 83720-6.61 04/30 [place] Encounter [id number] /2022 [facility] Outpatient 55461-3.61 LEANA FRIED 05/02 [place] Encounter [id number] [facility] Outpatient 51201-6.61 Leola SWAN, 05/09 [place] Encounter [id number] is: [facility] ICD-10- HCS CM G47.33 Obstruc tive sleep apnea (adult) (pediat gina)
with Provide r Comment s: Obstruc tive Sleep Apnea Outpatient 34935-5.61 ROVERTO WOODS 05/10 [place] Encounter [id number] [facility] HCS ANIMAL HOSPITAL CLERK STDY 00602-1.61 Diagnos DONY GOMEZ 05/10 [place] UNATTENDED [phone] is: [facility] ICD-10- HCS CM G47.33 Obstruc tive sleep apnea (adult) (pediat gina)
with Provide r Comment s: Obstruc tive Sleep Apnea PULMONARY 23550-8.61 Diagnos BENY, 05/14 [place] SERVICE/DE [phone] is: [facility] OCEDURE ICD-10- HCS CM G47.33 Obstruc tive sleep apnea (adult) (pediat gina)
with Provide r Comment s: Obstruc tive Sleep Apnea (Adult) (Pediat gina) Social History Combined list of available smoking, tobacco, and other social [facility]. Social History Response [...] History of tobacco FORMER TOBACCO USER 12/14/2006 [facility] use 7Y OR GREATER History of tobacco LIFETIME 12/19/2005 He quit smoking on [facility] use NON-SMOKER/QUIT 7 1982. YRS OR> Plan of Care List of future care activities from [facility] facilities. Additional future care activities may be listed in the Assessment and Plan section. Date/Time Care Activity Care Activity Detail Facility 05/28/2022 AMBULATORY - SURGERY AMBULATORY - SURGERY [facility] Advance Directives List of completed, amended, or rescinded Advance Directives on record at Department of Veterans Affairs facilities. An actual copy of the Directive is not included. Date Advance Directive Provider Source 03/12/2019 ADVANCE [address] [facility] 03/12/2019 ADVANCE DIRECTIVE DISCUSSION KIARA BRANDT [facility]
--- OUTSIDE RECORDS SUMMARY | 2022-05-26 08:31 | XMS_ITS | Encounter Summary ---
:1945 Author Organization [facility] Address [address] [place] [address] Support Name Relationship Address Phone TERRELL FORD [...] Number Chen BLUELINK COMPREHEN MAXI Jul 28, [id number] [phone] JAZMIN ELAURENCEU PATIENT TPA SIVE E-O 2006 [id number] L MAJOR [facility] STOR EXPRESS PRESCRIPT MAXI Jul 28, KEERTHI [id number] [phone] MARIELOS IBARRA PATIENT SCRIPTS - ION E O 2005 [id number] L SUBROGATIO TURKE N Y HUMANA MCR MEDICARE MCR Jul 28, [id number] [phone] KLU DELMERMARIELOS PATIENT (WNR) ADVANTAGE (WNR) 2013 1 89 8 L [employer] MCR MEDICARE MCR Jul 28, [id number] KLU DELMERMARIELOS PATIENT (WNR) ADVANTAGE (WNR) 2013 1 89 0 L [employer] MCR MEDICARE MCR Jul 28, [id number] [phone] KLU DELMERMARIELOS PATIENT (WNR) ADVANTAGE (WNR) 2013 1 89 2 L Selected Encounter This section includes the information on record at [place] for the Encounter. Date/Time Encounter Type Encounter Reason Provider Source Description Apr 25, 2022 HC PRO PHONE TELEPHONE PRIMARY ICD-10-CM R31.9 Elpidio BOBO 04:10 PM CALL 5-10 MIN CARE Hematuria, A L unspecified with Provider Comments: Hematuria, unspecified IHE Encounter Template Text not used by [place] Assessments - Encounter Diagnoses This section includes the primary and secondary diagnoses documented for the Encounter. Date/Time Primary/Secondary Diagnosis Name Provider Source Diagnosis Apr 25, 2022 PRIMARY Hematuria, CODY BOBO 04:10 PM unspecified A L (CB) Plan of Treatment: Future Appointments (+ 6 months) and Future Tests (+/- 45 days) The Plan of Treatment section includes future care activities for the patient from all [place] [facility]. This section includes future appointments and future orders which are active, pending orscheduled.Future Appointments This section includes appointments that were scheduled to occur 6 months from the date of the Encounter, up to a maximum of 20 appointments. The data comes from all [facility]. Appointment Date/Time Appointment Type Appointment Facili ty Name Apr 26, 2022 03:21 AM AMBULATORY - MEDICINE [facility] Apr 30, 2022 11:00 AM AMBULATORY - PS[place]CHIATRY [place] ([facility]) Apr 30, 2022 12:15 PM AMBULATORY - MEDICINE [place] ([facility]) May 09, 2022 07:44 AM AMBULATORY - MEDICINE [facility] May 28, 2022 10:00 AM AMBULATORY - SURGERY [facility] Jun 25, 2022 09:30 AM AMBULATORY - NONE [place] ([facility]) Jun 28, 2022 01:00 PM AMBULATORY - MEDICINE [facility] Jul 02, 2022 11:00 AM AMBULATORY - PSYCHIATRY [place] ([facility]) Jul 25, 2022 09:45 AM AMBULATORY - MEDICINE [place] ([facility]) Active, Pending, and Scheduled Orders This section includes a listing of several types of active, pending, and scheduled orders, including clinic medications orders, diagnostic test orders, procedure orders and consult orders; where the start date of the order is 45 days before the date of the Encounter or 45 days after the date of the Encounter. The data comes from all [facility]. Test Date/Time Test Type Test Details Facility Name Apr 26, 2022 04:20 AM Consult Order UROLOGY OUTPT Cons [place] [facility] Data Analysis Manager's Choice Apr 30, 2022 12:23 PM Laboratory - Chemistry .CYTO PRINT CHART R [place] (CB) Order COPY-LABEL SPECIMEN OTHER SP ONCE Lab Results: +/- 30 days of the [...] Result - Unit Interpretation Reference Range Comment Apr 30, 2022 12:47 [place] ([facility]) BASIC METABOLIC Specimen Ty pe: PLASMA PM PANEL+MG No comment enter ed. Ordering Provid er: EVANS AGUILAR Report Released Date/Time: Apr 30, 2022 12:31 PM Reporting Lab: [facility] [address] [facility] [address] [facility] [address] Performing Lab: [facility] [address] CREATININE 1.1 0.7-1.2 UREA NITROGEN 16 8-26 GLUCOSE 92 70-100 SODIUM 136 136-145 POTASSIUM 4.1 3.5-5.1 CHLORIDE 102 98-107 CO2 26 22-29 CALCIUM 10.3 H 8.4-10.2 MAGNESIUM 2.0 1.6-2.6 ANION GAP 8 5-15 CREAT EGFR(CKD-EPI) 70 >60 Apr 30, 2022 12:47 PM [place] ([facility]) CBC Specimen Type: BLOOD No comment enter ed. Ordering Provid er: EVANS AGUILAR Report Released Date/Time: Apr 30, 2022 12:31 PM Reporting Lab: [facility] [address] [facility] [address] Performing Lab: [facility] [address] WBC 5.36 4.0-11.0 RBC 3.84 L 4.6-6.2 HGB 13.3 L 13.5-17.9 HCT 39.5 L 41-54 MCV 102.9 H 80-100 MCH 34.6 H 27-33 MCHC 33.7 32.0-37.5 PLT 291 150-400 MPV 9.9 7.4-10.4 RDW 14.0 11.5-14.5 Apr 26, 2022 03:[address] [facility] URINALYSIS Specim en Type: URINE No comment enter ed. Ordering Provid er: SYLVIE BONDS Report Released Date/Time: Apr 26, 2022 03:38 AM Reporting Lab: [facility] [address] [facility] [address] Performing Lab: [facility] [address] [facility] [address] URINE COLOR COLORLESS SPECIFIC GRAVITY 1.007 1.003-1.035 URINE BILIRUBIN NEGATIVE NEGATIVE URINE KETONES NEGATIVE NEGATIVE URINE GLUCOSE NEGATIVE <30 URINE PROTEIN 10 <20 URINE PH 6.0 5.0-8.0 URINE WBC/HPF 34 H 0-7 URINE BACTERIA NONE SEEN URINE RBC/HPF 44 H 0-3 APPEARANCE CLEAR SQUAMOUS EPITHELIAL NONE SEEN URINE BLOOD 3+ NEGATIVE URINE NITRITE NEGATIVE NEGATIVE LEUKOCYTE ESTERASE 250 NEGATIVE Social History: Smoking Status (Most current) and Tobacco Use (All prior to encounter date) This section includes the most current, and the historical, smoking and tobacco-related health factors from the [place] facility where the Encounter took place.Current Smoking Status This section includes the most current smoking, or tobacco-related health factor, from the [place] facility where the Encounter took place. Date/Time Current Smoking Status Comment Facility Jul 26, 2021 10:15 AM VA-TOBACCO FORMER USER [facility] ([facility]) Tobacco Use History This section includes a history of the smoking, or tobacco- related health factors, that were collected on or before the date of the Encounter. The data comes from the [place] facility where the Encounter took place. Date/Time Smoking Status/Tobacco Use Comment [facility] Jul 26, 2021 10:15 AM VA-TOBACCO QUIT 15 YRS OR MORE [place] ([facility]) Jul 18, 2020 01:45 PM VA-TOBACCO FORMER USER [facility] ([facility]) Jul 18, 2020 01:45 PM VA-TOBACCO QUIT 15 YRS OR MORE [place] ([facility]) Oct 20, 2018 09:43 AM VA-TOBACCO FORMER USER [facility] ([facility]) Oct 20, 2018 09:43 AM VA-TOBACCO QUIT 15 YRS OR MORE [place] ([facility]) Aug 29, 2017 10:26 AM FORMER TOBACCO USER 7Y OR GREATER [place] ([facility]) Mar 18, 2016 10:08 AM FORMER TOBACCO USER 7Y OR GREATER [place] ([facility]) Jun 06, 2015 12:30 PM FORMER TOBACCO USER 7Y OR GREATER [facility] ([facility]) Apr 08, 2014 09:02 AM FORMER TOBACCO USER 7Y OR GREATER [place] ([facility]) Advance Directives: All historical and current [...] 12, 2019 ADVANCE DIRECTIVE [address]IARA BRANDT [facility] Mar 12, 2019 ADVANCE DIRECTIVE DISCUSSION [facility] Pathology Reports: +/- 30 days of the encounter Pathology Reports For cases when an order for pathology services may have been completed prior to the date of the Encounter, the report list includes the Pathology Reports that were completed up to 30 days before date of the Encounter. For cases when an order for pathology services may have been completed after the date of the Encounter, the report list also includes the Pathology Reports that were completed up to 30days after date of the Encounter. The data comes from all [place] treatment facilities. Date/Time Pathology Report Provider Source May 02, 2022 10:49 AM LR CYTOPATHOLOGY REPORT: DEVIN FRIED [facility] LOCAL TITLE: LR CYTOPATHOLOGY REPORT JENNIFER STANDARD TITLE: PATHOLOGY REPORT DATE OF NOTE: MAY 02, 2022@10:49:51 ENTRY DATE: MAY 02, 2022@10:49:51 AUTHOR: DEVIN FRIED EXP COSIGNER: URGENCY: STATUS: COMPLETED $APHDR Reporting Lab: [facility] [CLIA# [id number]] [place] [address] - - - - - - - - - - - - - - - - - - - - - - - - - - - - - - - - - - - - - - - - MEDICAL RECORD CYTOPATHOLOGY - - - - - - - - - - - - - - - - - - - - - - - - - - - - - - - - - - - - - - - - PATHOLOGY REPORT Accession No. [id number] - - - - - - - - - - - - - - - - - - - - - - - - - - - - - - - - - - - - - - - - $TEXT Submitted by: EVANS AGUILAR Date obtain ed: Apr 30, 2022 - - - - - - - - - - - - - - - - - - - - - - - - - - - - - - - - - - - - - - - - Specimen (Received May 01, 2022 08:52): URINE-CYTOLOGY - - - - - - - - - - - - - - - - - - - - - - - - - - - - - - - - - - - - - - - - BRIEF CLINICAL HISTORY: Hematuria. - - - - - - - - - - - - - - - - - - - - - - - - - - - - - - - - - - - - - - - - PREOPERATIVE DIAGNOSIS: - - - - - - - - - - - - - - - - - - - - - - - - - - - - - - - - - - - - - - - - OPERATIVE FINDINGS: - - - - - - - - - - - - - - - - - - - - - - - - - - - - - - - - - - - - - - - - POSTOPERATIVE DIAGNOSIS: Surgeon/physician: EVANS AGUILAR MD =-=-=-=-=-=-=-=-=-=-=-=-=-=- =-=-=-=-=-=-=-=-=-=-=-=-=-=-=-=-=-=-=-=-=-=-=-=-=-= - - - - - - - - - - - - - - - - - - - - - - - - - - - - - - - - - - - - - - - - PATHOLOGY REPORT Accession No. [id number] - - - - - - - - - - - - - - - - - - - - - - - - - - - - - - - - - - - - - - - - Screened by: GIACOMO BOSE [place] Description: Voided urine; 100 mL clear pale yellow fluid re ceived. One ThinPrep slide prepared. Microscopic: Microscopic examination performed. RS Diagnosis: Urine, cytology -- - NEGATIVE FOR HIGH-GRADE UROTHELIAL CARCINOMA /es/ DEVIN FRIED STAFF PATHOLOGIST, PATHOLOGY & LABORATORY MED SV C Signed May 02, 2022@10:49 Performing Laboratory: Cytology Report Performed By: [facility] [CLIA# [id number]] [facility] [address] [place] [address] $FTR - - - - - - - - - - - - - - - - - - - - - - - - - - - - - - - - - - - - - - - - (End of report) DEVIN FRIED MD rks Date May 02, 2022 - - - - - - - - - - - - - - - - - - - - - - - - - - - - - - - - - - - - - - - - SHAWNA IBARRA STANDARD FORM 515 ID:[id number] SEX:M :1945 AGE: 76 LOC: [id number] PCP: Evans Aguilar MD /catia/ DEVIN FRIED STAFF PATHOLOGIST, PATHOLOGY & LABORATORY MED SV C Signed: 05/02/2022 10:49 Apr 26, 2022 03:24 AM LR MICROBIOLOGY REPORT: [facility] Reporting Lab: [facility] [CLIA# [id number]] [place] [address] Accession [UID]: [id number] [[id number]] Receiv ed: Apr 26, 2022@04:20 Collection sample: URINE Collection date: Mar 03:24 Provider: SYLVIE BONDS Comment on specimen: RECEIVED IN STERILE CUP Test(s) ordered: CULTURE & SUSCEPTIBILITY...... completed: Apr 27, 2022 * BACTERIOLOGY FINAL REPORT => Apr 27, 2022 11:0 6 TECH CODE: [id number] CULTURE RESULTS: NO GROWTH 24 HOURS Bacteriology Remark(s): THIS REPORT IS FINAL =--=--=--=--=--=--=--=--=--=--=--=--=--= --=--=--=--=--=--=--=--=--=--=--=--=-- Performing Laboratory: Bacteriology Report Performed By: [facility] [CLIA# [id number]] [place] [address] Encounter Notes: All associated encounter notes This section contains the clinical notes associated to the Encounter. Date/Time Encounter Note(s) Provider Source Apr 25, 2022 04:12 PM NURSING TELEPHONE ENCOUNTER NOTE: CAITLIN BOBO ([facility]) LOCAL TITLE: NURSING POST DISCHARGE TELEPHONE STANDARD TITLE: NURSING TELEPHONE ENCOUNTER NOTE DATE OF NOTE: APR 25, 2022@16:12 ENTRY DATE: APR 25, 2022@16:12:54 AUTHOR: CAITLIN BOBO EXP COSIGNER: URGENCY: STATUS: COMPLETED NURSING POST DISCHARGE TELEPHONE Has ADDEND A Discharge Length of call with : 5-10 minutes Date of Discharge: Mar Discharged from: [facility] Diagnosis: hematuria Assessment post discharge: He no longer has a catheter, is voiding, having some light pink urine, drinking lots of fluids. No clots. He reported he will need a cystoscopy and f/u [facility] Urology. Reviewed scheduled appointments: needs PCP f/u next week - request assist from AM SA for scheduling Confirmed that patient has the Call Center Conta ct information and the after hours number to use if there are any concerns. Emergent s/s and when to seek care reviewed with pt. /catia/ Caitlin Bobo RN, CN Registered Nurse Signed: 04/25/2022 16:21 Receipt Acknowledged By: 04/26/2022 09:12 /catia/ KARLIE BUTCHER [facility] for CHRIS UMAÑA 04/26/2022 09:09 /catia/ KARLIE BUTCHER [facility] * AWAITING SIGNATURE * EVANS AGUILAR 04/26/2022 ADDENDUM STATUS: COMPLETED Contacted to schedule with PCP a nd was seen at [place] ER last linda. Urology consult placed by Dr sheppard. Frederick feel s he can wait to be seen by urology but will call to see PCP if not contacte d by urology early next week. /catia/ KARLIE Mora [facility] Signed: 04/26/2022 09:11 Receipt Acknowledged By: * AWAITING SIGNATURE * EVANS AGUILAR
--- OUTSIDE RECORDS SUMMARY | 2022-05-26 08:31 | XMS_ITS | Encounter Summary ---
:1945 Author Organization [facility] Address [address] [place] [address] Support Name Relationship Address Phone LILIANA TERRELL [...] Number Chen BLUELINK COMPREHEN MAXI Jul 28, [id number] [phone] JAZMIN ELAURENCEU PATIENT TPA SIVE E-O 2005 [id number] L MAJOR [facility] [employer] [facility] STOR EXPRESS PRESCRIPT MAXI Jul 28, KEERTHI [id number] [phone] MARIELOS IBARRA PATIENT SCRIPTS - ION E O 2005 [id number] L SUBROGATIO TURKE N Y HUMANA MCR MEDICARE MCR Jul 28, [id number] [phone] KLU DELMERMARIELOS PATIENT (WNR) ADVANTAGE (WNR) 2013 1 89 8 L [employer] MCR MEDICARE MCR Jul 28, [id number] KLU DELMERMARIELOS PATIENT (WNR) ADVANTAGE (WNR) 2013 1 89 0 L [employer] MCR MEDICARE MCR Jul 28, [id number] [phone] KLU DELMERMARIELOS PATIENT (WNR) ADVANTAGE (WNR) 2013 1 89 2 L Selected Encounter This section includes the information on record at [place] for the Encounter. Date/Time Encounter Type Encounter Reason Provider Source Description Apr 23, 2022 02:44 Outpatient ADMIN PAT ACTIVTIES ABBIE BROOKS PM Encounter (MASNONCT) IHE Encounter Template Text not used by [place] Plan of Treatment: Future Appointments (+ 6 months) and Future Tests (+/- 45 days) The Plan of Treatment section includes future care activities for the patient from all [place] [facility]. This section includes future appointments and future orders which are active, pending orscheduled.Future Appointments This section includes appointments that were scheduled to occur 6 months from the date of the Encounter, up to a maximum of 20 appointments. The data comes from all [facility]. Appointment Date/Time Appointment Type Appointment Facili ty Name Apr 26, 2022 03:21 AM AMBULATORY - MEDICINE [facility] Apr 30, 2022 11:00 AM AMBULATORY - PSYCHIATRY [place] ([facility]) Apr 30, 2022 12:15 PM AMBULATORY MEDICINE [place] ([facility]) May 09, 2022 07:44 AM AMBULATORY MEDICINE [facility] May 28, 2022 10:00 AM AMBULATORY - SURGERY [facility] Jun 25, 2022 09:30 AM AMBULATORY - NONE [place] ([facility]) Jun 28, 2022 01:00 PM AMBULATORY - MEDICINE [facility] Jul 02, 2022 11:00 AM AMBULATORY - PSYCHIATRY [place] ([facility]) Jul 25, 2022 09:45 AM AMBULATORY - MEDICINE [place] ([facility]) Active, Pending, and Scheduled Orders This section includes a listing of several types of active, pending, and scheduled orders, including clinic medications orders, diagnostic test orders, procedure orders and consult orders; where the start date of the order is 45 days before the date of the Encounter or 45 days after the date of the Encounter. The data comes from all [facility]. Test Date/Time Test Type Test Details Facility Name Apr 26, 2022 04:20 AM Consult Order [facility] Resource Recovery Engineer's Choice Apr 30, 2022 12:23 PM Laboratory - Chemistry .CYTO PRINT CHART R [place] ([facility]) Order COPY-LABEL SPECIMEN OTHER SP ONCE Lab Results: +/- 30 days of the encounter This section includes the Chemistry and Hematology Lab Results on record with [place] for the patient. Radiology Reports and Pathology Reports are provided separately, in subsequent sections.Lab Results This section contains the Chemistry/Hematology Results that were resulted 30 days before or 30 daysafter the date of the Encounter. Date/Time Source Result Type Result - Unit Interpretation Reference Range Comment Apr 30, 2022 12:47 PM [place] ([facility]) CBC Specimen Type: BLOOD No comment enter ed. Ordering Provid er: EVANS AGUILAR Report Released Date/Time: Apr 30, 2022 12:31 PM Reporting Lab: [facility] [address] Performing Lab: [facility] [address] WBC 5.36 4.0-11.0 RBC 3.84 L 4.6-6.2 HGB 13.3 L 13.5-17.9 HCT 39.5 L 41-54 MCV 102.9 H 80-100 MCH 34.6 H 27-33 MCHC 33.7 32.0-37.5 PLT 291 150-400 MPV 9.9 7.4-10.4 RDW 14.0 11.5-14.5 Apr 30, 2022 12:47 [place] ([facility]) BASIC METABOLIC Specimen Ty pe: PLASMA PM PANEL+MG No comment enter ed. Ordering Provid er: EVANS AGUILAR Report Released Date/Time: Apr 30, 2022 12:31 PM Reporting Lab: [facility] [address] Performing Lab: [facility] [address] CREATININE 1.1 0.7-1.2 UREA NITROGEN 16 8-26 GLUCOSE 92 70-100 SODIUM 136 136-145 POTASSIUM 4.1 3.5-5.1 CHLORIDE 102 98-107 CO2 26 22-29 CALCIUM 10.3 H 8.4-10.2 MAGNESIUM 2.0 1.6-2.6 ANION GAP 8 5-15 CREAT EGFR(CKD-EPI) 70 >60 Apr 26, 2022 03:[address] [facility] URINALYSIS Specim en Type: URINE No comment enter ed. Ordering Provid er: SYLVIE BONDS Report Released Date/Time: Apr 26, 2022 03:38 AM Reporting Lab: [facility] [address] Performing Lab: [facility] [address] URINE COLOR COLORLESS SPECIFIC GRAVITY 1.007 1.003-1.035 URINE BILIRUBIN NEGATIVE NEGATIVE URINE KETONES NEGATIVE NEGATIVE URINE GLUCOSE NEGATIVE <30 URINE PROTEIN 10 <20 URINE PH 6.0 5.0-8.0 URINE WBC/HPF 34 H 0-7 URINE BACTERIA NONE SEEN URINE RBC/HPF 44 H 0-3 APPEARANCE CLEAR SQUAMOUS EPITHELIAL NONE SEEN URINE BLOOD 3+ NEGATIVE URINE NITRITE NEGATIVE NEGATIVE LEUKOCYTE ESTERASE 250 NEGATIVE Advance Directives: All historical and current Section [...] 12, 2019 ADVANCE [address]ARA [address] [facility] Mar 12, 2019 ADVANCE DIRECTIVE DISCUSSION KIARA BRANDT [facility] Pathology Reports: +/- 30 [...] the Encounter. The data comes from all [place] treatment facilities. Date/Time Pathology Report Provider Source May 02, 2022 10:49 AM LR CYTOPATHOLOGY REPORT: DEVIN FRIED [facility] LOCAL TITLE: LR CYTOPATHOLOGY REPORT JENNIFER STANDARD TITLE: PATHOLOGY REPORT DATE OF NOTE: MAY 02, 2022@10:49:51 ENTRY DATE: MAY 02, 2022@10:49:51 AUTHOR: DEVIN FRIED EXP COSIGNER: URGENCY: STATUS: COMPLETED $APHDR Reporting Lab: [facility] [CLIA# [id number]] [place] [address] - - - - - - - [...] - - - Screened by: GIACOMO BOSE [place] Description: Voided urine; 100 mL clear pale yellow fluid re ceived. One ThinPrep slide prepared. Microscopic: Microscopic examination performed. RS Diagnosis: Urine, cytology -- - NEGATIVE FOR HIGH-GRADE UROTHELIAL CARCINOMA /catia/ DEVIN FRIED STAFF PATHOLOGIST, PATHOLOGY & LABORATORY MED C Signed May 02, 2022@10:49 Performing Laboratory: Cytology Report Performed By: [facility] [CLIA# [id number]] [place] [address] $FTR - - - - - - [...] - - SHAWNA IBARRA STANDARD FORM 515 ID:[id number] SEX:M :1945 AGE: 76 LOC: 78834 PCP: Evans Aguilar MD /catia/ DEVIN FRIED STAFF PATHOLOGIST, PATHOLOGY & LABORATORY MED C Signed: 05/02/2022 10:49 Apr 26, 2022 03:24 AM LR MICROBIOLOGY REPORT: [place] [facility] Reporting Lab: [facility] [CLIA# [id number]] [place] [address] Accession [UID]: [id number] [[id number]] Receiv ed: Apr 26, 2022@04:20 Collection sample: URINE Collection date: Mar 03:24 Provider: SYLVIE BONDS Comment on specimen: RECEIVED IN STERILE CUP Test(s) ordered: CULTURE & SUSCEPTIBILITY...... completed: Apr 27, 2022 * BACTERIOLOGY FINAL REPORT => Apr 27, 2022 11:0 6 TECH CODE: [id number] CULTURE RESULTS: NO GROWTH 24 HOURS Bacteriology Remark(s): THIS REPORT IS FINAL =--=--=--=--=--=--=--=--=--=--=--=--=--= --=--=--=--=--=--=--=--=--=--=--=--=-- Performing Laboratory: Bacteriology Report Performed By: [facility] [CLIA# [id number]] [address] [place] [address] Encounter Notes: All associated encounter notes This section contains the clinical notes associated to the Encounter. Date/Time Encounter Note(s) Provider Source Apr 21, 2022 02:45 PM NONVA NOTE: CHAD ALAS [facility] LOCAL TITLE: COMMUNITY CARE-TERRI SELF PRESENTIN G CARE COORD PLAN N STANDARD TITLE: NONVA NOTE DATE OF NOTE: APR 21, 2022@14:45 ENTRY DATE: APR 23, 2022@14:45:23 AUTHOR: CHAD ALAS EXP COSIGNER: URGENCY: STATUS: COMPLETED COMMUNITY CARE-TERRI SELF PRESENTING CARE CO ORD PLAN NOTE Has ADDENDA Emergency Notification Intake Date Presenting to the Facility: Mar Method of Contact: Notified from AgentPiggy worklist Notification ID: [id number] [facility] Referral #: [facility] Name: Hospital: [facility] Address: City: [place] State: [place] Zip Code: Phone : [facility] Facility Point of Contact: Name: AZUL MONET Chief complaint: HEMATURIA Primary Diagnosis: Disposition Unknown at time of intake note entry 04/23/2022 2:41:49 PM CDT DEVIN FOSTER 04/23/2022 CHINTANUIERIC- CALL BACK MADE , NOT ABLE TO REACH ANYONE. 04/23/2022 2:40:21 PM CDT DEVIN FOSTER 04/23/2022 REGINALDO-RECIEVED VIA EMAIL- IMPUTED VET INFO TO MATCH JLV, 24 MONTHS, ICN, NSC, P&T, OHI, NPI, CHEIF COMPLAINT , ORIGINATING... NO POC INFO PROVIDED. DIDNT SAY HOW AND WHERE VET CAME FROM, OR THE TIME VET CAME IN. CLOSED FOR 1703 /catia/ CHAD ALAS TRANS ROUTER Signed: 04/23/2022 14:47 Receipt Acknowledged By: 04/25/2022 13:42 /catia/ ABBIE BROOKS RN REGISTERED NURSE 04/25/2022 ADDENDUM STATUS: COMPLETED Hospital Discharge note Hospital: [facility] Admit date: 04/21/22 Discharge date: 04/23/22 Discharge diagnosis: Hematuria, HHT, BPH Disposition: [facility] Discharge note Hospital: [facility] Admit date: 04/23/22 Discharge date: 04/25/22 Discharge diagnosis: gross hematuria Disposition: home Follow up: PCP 1-5 days Follow up with your urologist Medical records uploaded to [employer] Please review records for any needed follow up. /catia/ ABBIE BROOKS RN REGISTERED NURSE Signed: 04/25/2022 13:51 Receipt Acknowledged By: * AWAITING SIGNATURE * CAITLIN BOBO * AWAITING SIGNATURE * EVANS AGUILAR
--- OUTSIDE RECORDS SUMMARY | 2022-05-26 08:31 | XMS_ITS | Encounter Summary ---
:1945 Author Organization [facility] rs Address [address] [place] [address] Support Name Relationship Address Phone LILIANA TERRELL [...] Number Chen BLUELINK COMPREHEN MAXI Jul 28, [id number] [phone] JAZMIN ELAURENCEU PATIENT TPA SIVE E-O 2005 0 [id number] L MAJOR [facility] [employer] STOR EXPRESS PRESCRIPT MAXI Jul 28, KEERTHI [id number] [phone] MARIELOS IBARRA PATIENT SCRIPTS - ION E O 2005 [id number] L SUBROGATIO TURKE N Y HUMANA MCR MEDICARE MCR Jul 28, [id number] [phone] KLU DELMERMARIELOS PATIENT (WNR) ADVANTAGE (WNR) 2013 1 89 8 L HUMANA MCR MEDICARE MCR Jul 28, [id number] KLU DELMERMARIELOS PATIENT (WNR) ADVANTAGE (WNR) 2013 1 89 0 L HUMANA MCR MEDICARE MCR Jul 28, [id number] [phone] KLU DELMERMARIELOS PATIENT (WNR) ADVANTAGE (WNR) 2013 1 89 2 L Selected Encounter This section includes the information on record at [place] for the Encounter. Date/Time Encounter Type Encounter Reason Provider Source Description Apr 23, 2022 09:44 Outpatient ADMIN PAT ACTIVTIES ABBIE BROOKS AM Encounter (MASNONCT) IHE Encounter Template Text not used by [place] Plan of Treatment: Future Appointments (+ 6 months) and Future Tests (+/- 45 days) The Plan of Treatment section includes future care activities for the patient from all [place] [facility]. This section includes future appointments and future orders which are active, pending orscheduled.Future Appointments This section includes appointments that were scheduled to occur 6 months from the date of the Encounter, up to a maximum of 20 appointments. The data comes from all [facility]. Appointment Date/Time Appointment Type Appointment Facili ty Name Apr 26, 2022 03:21 AM AMBULATORY - MEDICINE [facility] Apr 30, 2022 11:00 AM AMBULATORY - PSYCHIATRY [place] ([facility]) Apr 30, 2022 12:15 PM AMBULATORY MEDICINE [place] ([facility]) May 09, 2022 07:44 AM AMBULATORY MEDICINE [facility] May 28, 2022 10:00 AM AMBULATORY - SURGERY [facility] Jun 25, 2022 09:30 AM AMBULATORY - NONE [place] ([facility]) Jun 28, 2022 01:00 PM AMBULATORY - MEDICINE [facility] Jul 02, 2022 11:00 AM AMBULATORY - PSYCHIATRY [place] ([facility]) Jul 25, 2022 09:45 AM AMBULATORY - MEDICINE [place] ([facility]) Active, Pending, and Scheduled Orders This section includes a listing of several types of active, pending, and scheduled orders, including clinic medications orders, diagnostic test orders, procedure orders and consult orders; where the start date of the order is 45 days before the date of the Encounter or 45 days after the date of the Encounter. The data comes from all [facility]. Test Date/Time Test Type Test Details Facility Name Apr 26, 2022 04:20 AM Consult Order [facility] Help Desk Intern's Choice Apr 30, 2022 12:23 PM Laboratory - Chemistry .CYTO PRINT CHART R [place] ([facility]) Order COPY-LABEL SPECIMEN OTHER SP ONCE Lab Results: +/- 30 days of the encounter This section includes the Chemistry and Hematology Lab Results on record with [place] for the patient. Radiology Reports and Pathology Reports are provided separately, in subsequent sections.Lab Results This section contains the Chemistry/Hematology Results that were resulted 30 days before or 30 daysafter the date of the Encounter. Date/Time Source Result Type Result - Unit Interpretation Reference Range Comment Apr 30, 2022 12:47 [place] ([facility]) BASIC METABOLIC Specimen Ty pe: PLASMA PM PANEL+MG No comment enter ed. Ordering Provid er: EVANS AGUILAR Report Released Date/Time: Apr 30, 2022 12:31 PM Reporting Lab: [facility] [id number] Performing Lab: [facility] [address] CREATININE 1.1 0.7-1.2 UREA NITROGEN 16 8-26 GLUCOSE 92 70-100 SODIUM 136 136-145 POTASSIUM 4.1 3.5-5.1 CHLORIDE 102 98-107 CO2 26 22-29 CALCIUM 10.3 H 8.4-10.2 MAGNESIUM 2.0 1.6-2.6 ANION GAP 8 5-15 CREAT EGFR(CKD-EPI) 70 >60 Apr 30, 2022 12:47 PM [place] ([facility]) CBC Specimen Type: BLOOD No comment enter ed. Ordering Provid er: EVANS AGUILAR Report Released Date/Time: Apr 30, 2022 12:31 PM Reporting Lab: [facility] [id number] Performing Lab: [facility] [address] WBC 5.36 4.0-11.0 RBC 3.84 L 4.6-6.2 HGB 13.3 L 13.5-17.9 HCT 39.5 L 41-54 MCV 102.9 H 80-100 MCH 34.6 H 27-33 MCHC 33.7 32.0-37.5 PLT 291 150-400 MPV 9.9 7.4-10.4 RDW 14.0 11.5-14.5 Apr 26, 2022 03:24 AM [facility] URINALYSIS Specim en Type: URINE No comment enter ed. Ordering Provid er: SYLVIE BONDS Report Released Date/Time: Apr 26, 2022 03:38 AM Reporting Lab: [facility] [address] Performing Lab: [facility] [address] URINE COLOR COLORLESS SPECIFIC GRAVITY 1.007 1.003-1.035 [...] ALL of a patient's completed or amended [place] Advance and Rescinded Directives. The entries below indicate that a directive exists for the patient, but an actual copy is not included with this document. The data comes from all [place] facilities. Date Advance Directives Provider Source Mar 12, 2019 ADVANCE DIRECTIVE KIARA BRANDT [facility] Mar 12, 2019 ADVANCE DIRECTIVE DISCUSSION KIARA BRANDT [facility] Pathology Reports: +/- 30 days [...] the Encounter. The data comes from all [place] treatment facilities. Date/Time Pathology Report Provider Source May 02, 2022 10:49 AM LR CYTOPATHOLOGY REPORT: DEVIN FRIED [facility] LOCAL TITLE: LR CYTOPATHOLOGY REPORT JENNIFER STANDARD TITLE: PATHOLOGY REPORT DATE OF NOTE: MAY 02, 2022@10:49:51 ENTRY DATE: MAY 02, 2022@10:49:51 AUTHOR: DEVIN FRIED EXP COSIGNER: URGENCY: STATUS: COMPLETED $APHDR Reporting Lab: [facility] [CLIA# [id number]] [place] [address] - - - - - - - [...] - - - Screened by: GIACOMO BOSE [place] Description: Voided urine; 100 mL clear pale yellow fluid re ceived. One ThinPrep slide prepared. Microscopic: Microscopic examination performed. RS Diagnosis: Urine, cytology -- - NEGATIVE FOR HIGH-GRADE UROTHELIAL CARCINOMA /catia/ DEVIN FRIED STAFF PATHOLOGIST, PATHOLOGY & LABORATORY MED C Signed May 02, 2022@10:49 Performing Laboratory: Cytology Report Performed By: [facility] [CLIA# [id number]] [place] [address] $FTR - - - - - - [...] - - SHAWNA IBARRA STANDARD FORM 515 ID:[id number] SEX:M :1945 AGE: 76 LOC: [address] PCP: Evans Aguilar MD /catia/ DEVIN FRIED STAFF PATHOLOGIST, PATHOLOGY & LABORATORY MED C Signed: 05/02/2022 10:49 Apr 26, 2022 03:24 AM LR MICROBIOLOGY REPORT: [place] [facility] Reporting Lab: [facility] [CLIA# [id number]] [place] [address] Accession [UID]: [id number] [[id number]] Receiv ed: Apr 26, 2022@04:20 Collection sample: URINE Collection date: Mar 03:24 Provider: SYLVIE BONDS Comment on specimen: RECEIVED IN STERILE CUP Test(s) ordered: CULTURE & SUSCEPTIBILITY...... completed: Apr 27, 2022 * BACTERIOLOGY FINAL REPORT => Apr 27, 2022 11:0 6 TECH CODE: [id number] CULTURE RESULTS: NO GROWTH 24 HOURS Bacteriology Remark(s): THIS REPORT IS FINAL =--=--=--=--=--=--=--=--=--=--=--=--=--= --=--=--=--=--=--=--=--=--=--=--=--=-- Performing Laboratory: Bacteriology Report Performed By: [facility] [CLIA# [id number]] [place] [address] Encounter Notes: All associated encounter notes This section contains the clinical notes associated to the Encounter. Date/Time Encounter Note(s) Provider Source Apr 23, 2022 09:47 AM NONVA NOTE: STEVAN FELIPE SUJIT IS [facility] LOCAL TITLE: COMMUNITY CARE-TERRI SELF PRESENTIN G CARE COORD PLAN STANDARD TITLE: NONVA NOTE DATE OF NOTE: APR 23, 2022@09:47 ENTRY DATE: APR 23, 2022@09:47:22 AUTHOR: STEVAN FELIPE EXP COSIGNER: URGENCY: STATUS: COMPLETED COMMUNITY CARE-TERRI SELF PRESENTING CARE CO ORD PLAN NOTE Has ADDENDA Emergency Notification Intake Date Presenting to the Facility: 04/21/2022 Method of Contact: Phone Centralized Call Center Notified [facility] Name: Hospital: [facility] Address: [address] City: [place] State: [place] Zip Code: [address] Phone : [facility] Point of Contact: Name: BAILEY MONET Chief complaint: HEMATURIA Primary Diagnosis: Disposition Admitted Route of Admission: Date of Admission: 04/21/2022 Admitting Diagnosis: HEMATURIA Community Care Provider: Confirm Level of Care: /sameer [facility] [employer] Signed: 04/23/2022 09:49 Receipt Acknowledged By: 04/23/2022 09:58 /catia/ ABBIE BROOKS RN REGISTERED NURSE * AWAITING SIGNATURE * CHAPARRO GARCIA 04/23/2022 ADDENDUM STATUS: COMPLETED Returned call to Bailey at [place], verified need for med/surg bed and informed her that un fortunately there are no available med/surg beds for transfer to the [facility] at this time. /catia/ ABBIE BROOKS RN REGISTERED NURSE Signed: 04/23/2022 10:03
--- OUTSIDE RECORDS SUMMARY | 2022-05-26 08:31 | XMS_ITS | Encounter Summary ---
:1945 Author Organization [facility] Address [address] [place] [id number] Support Name Relationship Address Phone TERRELL FORD [...] Number Chen BLUELINK COMPREHEN MAXI Jul 28, [id number] [phone] JAZMIN ELAURENCEU PATIENT TPA SIVE E-O 2006 0 [id number] L MAJOR [facility] [employer] [facility] STOR EXPRESS PRESCRIPT MAXI Jul 28, KEERTHI [id number] [phone] MARIELOS IBARRA PATIENT SCRIPTS - ION E O 2005 [id number] L SUBROGATIO TURKE N Y [employer]NA MCR MEDICARE MCR Jul 28, [id number] [phone] KLU DELMERMARIELOS PATIENT (WNR) ADVANTAGE (WNR) 2013 1 89 8 L [employer] MCR MEDICARE MCR Jul 28, [id number] KLU DELMERMARIELOS PATIENT (WNR) ADVANTAGE (WNR) 2013 1 89 0 L [employer] MCR MEDICARE MCR Jul 28, [id number] [phone] KLU DELMERMARIELOS PATIENT (WNR) ADVANTAGE (WNR) 2013 1 89 2 L Selected Encounter This section includes the information on record at [place] for the Encounter. Date/Time Encounter Type Encounter Description Reason Provider Source Apr 23, 2022 11:55 Outpatient Encounter SLEEP STUDY AM IHE Encounter Template Text not used by [place] Plan of Treatment: Future Appointments (+ 6 months) and Future Tests (+/- 45 days) The Plan of Treatment section includes future care activities for the patient from [facility]. This section includes future appointments and future orders which are active, pending orscheduled.Future Appointments This section includes appointments that were scheduled to occur 6 months from the date of the Encounter, up to a maximum of 20 appointments. The data comes from all [facility]. Appointment Date/Time Appointment Type Appointment Facili ty Name Apr 26, 2022 03:21 AM AMBULATORY - MEDICINE [facility] Apr 30, 2022 11:00 AM AMBULATORY - PSYCHIATRY [place] ([facility]) Apr 30, 2022 12:15 PM AMBULATORY - MEDICINE [place] ([facility]) May 09, 2022 07:44 AM AMBULATORY - MEDICINE [facility] May 28, 2022 10:00 AM AMBULATORY - SURGERY [facility] Jun 25, 2022 09:30 AM AMBULATORY - NONE [place] ([facility]) Jun 28, 2022 01:00 PM AMBULATORY - MEDICINE [facility] Jul 02, 2022 11:00 AM AMBULATORY - PSYCHIATRY [place] ([facility]) Jul 25, 2022 09:45 AM AMBULATORY - MEDICINE [place] ([facility]) Active, Pending, and Scheduled Orders This section includes a listing of several types of active, pending, and scheduled orders, including clinic medications orders, diagnostic test orders, procedure orders and consult orders; where the start date of the order is 45 days before the date of the Encounter or 45 days after the date of the Encounter. The data comes from all [facility]. Test Date/Time Test Type Test Details Facility Name Apr 26, 2022 04:20 AM Consult Order [facility]PT Cons [facility] Assistance Representative's Choice Apr 30, 2022 12:23 PM Laboratory - Chemistry .CYTO PRINT CHART R [place] ([facility]) Order COPY-LABEL SPECIMEN OTHER SP ONCE Lab Results: +/- 30 days of the encounter This section includes the Chemistry and Hematology Lab Results on record with [place] for the patient. Radiology Reports and Pathology Reports are provided separately, in subsequent sections.Lab Results This section contains the Chemistry/Hematology Results that were resulted 30 days before or 30 daysafter the date of the Encounter. Date/Time Source Result Type Result - Unit Interpretation Reference Range Comment Apr 30, 2022 12:47 PM [place] ([facility]) CBC Specimen Type: BLOOD No comment enter ed. Ordering Provid er: EVANS AGUILAR Report Released Date/Time: Apr 30, 2022 12:31 PM Reporting Lab: [facility] [address] Performing Lab: [facility] [address] WBC 5.36 4.0-11.0 RBC 3.84 L 4.6-6.2 HGB 13.3 L 13.5-17.9 HCT 39.5 L 41-54 MCV 102.9 H 80-100 MCH 34.6 H 27-33 MCHC 33.7 32.0-37.5 PLT 291 150-400 MPV 9.9 7.4-10.4 RDW 14.0 11.5-14.5 Apr 30, 2022 12:47 [place] ([facility]) BASIC METABOLIC Specimen Ty pe: PLASMA PM PANEL+MG No comment enter ed. Ordering Provid er: EVANS AGUILAR Report Released Date/Time: Apr 30, 2022 12:31 PM Reporting Lab: [facility] [address] Performing Lab: [facility] [address] CREATININE 1.1 0.7-1.2 UREA NITROGEN 16 8-26 GLUCOSE 92 70-100 SODIUM 136 136-145 POTASSIUM 4.1 3.5-5.1 CHLORIDE 102 98-107 CO2 26 22-29 CALCIUM 10.3 H 8.4-10.2 MAGNESIUM 2.0 1.6-2.6 ANION GAP 8 5-15 CREAT EGFR(CKD-EPI) 70 >60 Apr 26, 2022 03:24 AM [facility] URINALYSIS Specim en Type: URINE No comment enter ed. Ordering Provid er: SYLVIE BONDS Report Released Date/Time: Apr 26, 2022 03:38 AM Reporting Lab: [facility] [address] Performing Lab: [facility] [address] URINE COLOR COLORLESS SPECIFIC GRAVITY 1.007 1.003-1.035 [...] ALL of a patient's completed or amended [place] Advance and Rescinded Directives. The entries below indicate that a directive exists for the patient, but an actual copy is not included with this document. The data comes from all [place] facilities. Date Advance Directives Provider Source Mar 12, 2019 ADVANCE DIRECTIVE KIARA BRANDT [facility] Mar 12, 2019 ADVANCE DIRECTIVE DISCUSSION KIARA BRANDT [facility] Pathology Reports: +/- 30 days of the [...] the Encounter. The data comes from all [place] treatment facilities. Date/Time Pathology Report Provider Source May 02, 2022 10:49 AM LR CYTOPATHOLOGY REPORT: DEVIN FRIED [facility] LOCAL TITLE: LR CYTOPATHOLOGY REPORT JENNIFER STANDARD TITLE: PATHOLOGY REPORT DATE OF NOTE: MAY 02, 2022@10:49:51 ENTRY DATE: MAY 02, 2022@10:49:51 AUTHOR: DEVIN FRIED EXP COSIGNER: URGENCY: STATUS: COMPLETED $APHDR Reporting Lab: [facility] [CLIA# [id number]] [place] [address] - - - - - - - [...] - - - PATHOLOGY REPORT Accession No. [id number] - - - - - [...] - - - Screened by: GIACOMO BOSE [place] Description: Voided urine; 100 mL clear pale yellow fluid re ceived. One ThinPrep slide prepared. Microscopic: Microscopic examination performed. RS Diagnosis: Urine, cytology -- - NEGATIVE FOR HIGH-GRADE UROTHELIAL CARCINOMA /catia/ DEVIN FRIED STAFF PATHOLOGIST, PATHOLOGY & LABORATORY MED SV C Signed May 02, 2022@10:49 Performing Laboratory: Cytology Report Performed By: [facility] [CLIA# [id number]] [place] [address] $FTR - - - - - - [...] - - SHAWNA IBARRA STANDARD FORM 515 ID:[id number] SEX:M :1945 AGE: 76 LOC: [address]654 PCP: Evans Aguilar MD /catia/ DEVIN FRIED STAFF PATHOLOGIST, PATHOLOGY & LABORATORY MED SV C Signed: 05/02/2022 10:49 Apr 26, 2022 03:24 AM LR MICROBIOLOGY REPORT: [place] [facility] Reporting Lab: [facility] [CLIA# [id number]] [place] [address] Accession [UID]: [id number] [[id number]] Receiv ed: Apr 26, 2022@04:20 Collection sample: URINE Collection date: Mar 03:24 Provider: SYLVIE BONDS Comment on specimen: RECEIVED IN STERILE CUP Test(s) ordered: CULTURE & SUSCEPTIBILITY...... completed: Apr 27, 2022 * BACTERIOLOGY FINAL REPORT => Apr 27, 2022 11:0 6 TECH CODE: [id number] CULTURE RESULTS: NO GROWTH 24 HOURS Bacteriology Remark(s): THIS REPORT IS FINAL =--=--=--=--=--=--=--=--=--=--=--=--=--= --=--=--=--=--=--=--=--=--=--=--=--=-- Performing Laboratory: Bacteriology Report Performed By: [facility] [CLIA# [id number]] [place] [address] Encounter Notes: All associated encounter notes This section contains the clinical notes associated to the Encounter. Date/Time Encounter Note(s) Provider Source Apr 23, 2022 11:55 AM SLEEP MEDICINE NOTE: VIRGEN COFFEYSSTETE COPELAND DAVID [facility] LOCAL TITLE: SLEEP MEDICINE NOTE STANDARD TITLE: SLEEP MEDICINE NOTE DATE OF NOTE: APR 23, 2022@11:55 ENTRY DATE: APR 23, 2022@11:55:47 AUTHOR: CIATLIN COFFEY EXP COSIGNER: URGENCY: STATUS: COMPLETED WPAT One Questionnaire WPAT ONE QUESTIONNAIRE HAS BEEN FILLED OUT Verfied mailing address? y Phone number verified? y Once a sleep provider has formed a diagnosis, a RT will call patient with results and action plan. Order has been verified. Called patient to inform them that their HST dilma l be mailed out to them via [employer]. Discussed with the patient the following: need at least 6 hours of recording data; bonny gunter felt this is attainable study needs to be performed within a few days o f receiving the device keep their normal night-time routines - go to bed whenever they are sleepy - take normal medications prior to bed - sleep in any position - may drink alcohol because we want to see a nor mal night Explained about the WPAT One: inside the box is a watch, oximeter to monitor o xygen on finger, sticker to supervisor opening and picking snoring (if any) to be placed on thro at, and a battery sticker with pin number and clinic number locate d on top of box front of the box has ursula to download to [employer], choose android or apple to correlate with own device. Follow promp ts, shows pictures and wording, very easy to use. once you are up for the day, look at your phone and it will give you prompts to follow. download of data should not take longer than 10 minutes. If it does you most likely do not have enough space on your [employer] ne and need to connect to your Wi-Fi. You can remove equipment once it is downloaded s uccessfully. Otherwise, call [employer] help number on the box. Must keep your phone within 15 feet of you are a ll times during the study to make sure it stays connected. [place]itzen Sleepiness Scale Using the scale: 0=Never 1=Slight chance of dozi ng 2=Moderate chance of dozing 3=High chance of dozing, how often are you likel y to doze off in the following situations? 1. Sitting and reading = 1 2. Watching TV = 2 3. Sitting inactive in a public place = 0 4. As a passenger in a car for an hour without a break = 0 5. Lying down to rest in the afternoon as circu mstances permit = 3 6. Sitting and talking to someone = 0 7. Sitting quietly after lunch without alcohol = 3 8. In a car while stopped for a few minutes in traffic = 3 TOTAL: 12 Any patient comments or concerns: Difficulty falling asleep (it often takes more t pena 30 minutes to fall asleep): no Difficulty staying asleep (often wakes up in the middle of the night and may or may not fall back to sleep): yes 10 times Irregular sleep schedule (including night shifts /rotating shifts): no 11pm Aching or crawling sensation in legs when trying to fall asleep: cramps in calf Disruptive nightmares: yes, use to, but more sunitha ams now Sleep walking: supervisor hand silvering Physical injury to self or my bed partner in sle ep: no Have you been told, or suspected yourself, that you seem to act out your dreams while asleep (for example, punching, flai ling your arms in the air, making running movements, etc.): no Occupational risk: no/ retired Mental health disorders: anxiety, not applied for PTSD, however feels li ke he does have it *wakes up early like 0130 and be awake, 4-6 hour s in normal with waking up in between Informed patient they do not need to call us onc e the study has been completed; we will get a notification. A sleep p zora will go over their study and come up with a diagnosis. RT or RPSGT will call with your results and plan of action. You should hear from us again in a little over t wo weeks or so depending on the mail, when you take your test, and when r esults can be read by a provider. All patient's questions were addressed and is re yusef for the HST study. Informed them to call with any further questions or concerns at [phone] or [phone], M-F [phone] and we will be happy to assist. /catia/ CAITLIN COFFEY registered respiratory therapist Signed: 04/23/2022 12:03
--- OUTSIDE RECORDS SUMMARY | 2022-05-26 08:31 | XMS_ITS | Encounter Summary ---
:1945 Author Organization [facility] Address [address] [place] [address] Support Name Relationship Address Phone TERRELL FORD [...] Number Chen BLUELINK COMPREHEN MAXI Jul 28, [id number] [phone] JAZMIN ELAURENCEU PATIENT TPA SIVE E-O 2006 0 [id number] L MAJOR [facility] STOR EXPRESS PRESCRIPT MAXI Jul 28, KEERTHI [id number] [phone] MARIELOS IBARRA PATIENT SCRIPTS - ION E O 2005 [id number] L SUBROGATIO TURKE N Y HUMANA MCR MEDICARE MCR Jul 28, [id number] [phone] KLU DELMERMARIELOS PATIENT (WNR) ADVANTAGE (WNR) 2013 1 89 8 L HU[employer]NA MCR MEDICARE MCR Jul 28, [id number] [phone] KLU DELMERMARIELOS PATIENT (WNR) ADVANTAGE (WNR) 2013 1 89 2 L [employer]NA MCR MEDICARE MCR Jul 28, [id number] KLU DELMERMARIELOS PATIENT (WNR) ADVANTAGE (WNR) 2013 1 89 0 L Selected Encounter This section includes the information on record at [place] for the Encounter. Date/Time Encounter Type Encounter Reason Provider Source Description Apr 22, 2022 HC PRO PHONE TELEPHONE TRIAGE ICD-10-CM Z71.89 GABRIELLAVALERI 02:24 PM CALL 11-20 MIN Other specified T counseling with Provider Comments: Other specified counseling IHE Encounter Template Text not used by [place] Assessments - Encounter Diagnoses This section includes the primary and secondary diagnoses documented for the Encounter. Date/Time Primary/Secondary Diagnosis Name Provider Source Diagnosis Apr 22, 2022 PRIMARY Other specified SALENA QUIROZ [place] 02:24 PM counseling T [facility] Plan of Treatment: Future Appointments (+ 6 months) and Future Tests (+/- 45 days) The Plan of Treatment section includes future care activities for the patient from all [place] [facility] This section includes future appointments and future orders which are active, pending orscheduled.Future Appointments This section includes appointments that were scheduled to occur 6 months from the date of the Encounter, up to a maximum of 20 appointments. The data comes from all [facility]. Appointment Date/Time Appointment Type Appointment Facili ty Name Apr 23, 2022 09:44 AM AMBULATORY - NONE [facility] Apr 23, 2022 02:44 PM AMBULATORY [facility] Apr 26, 2022 03:21 AM AMBULATORY - MEDICINE [facility] Apr 30, 2022 11:00 AM AMBULATORY - PSYCHIATRY [place] ([facility]) Apr 30, 2022 12:15 PM AMBULATORY - MEDICINE [place] ([facility]) May 09, 2022 07:44 AM AMBULATORY - MEDICINE [facility] May 28, 2022 10:00 AM AMBULATORY - SURGERY [facility] Jun 25, 2022 09:30 AM AMBULATORY - NONE [place] ([facility]) Jun 28, 2022 01:00 PM AMBULATORY - MEDICINE [facility] Jul 02, 2022 11:00 AM AMBULATORY - PSYCHIATRY [place] ([facility]) Jul 25, 2022 09:45 AM AMBULATORY - MEDICINE [facility]) Active, Pending, and Scheduled Orders This section includes a listing of several types of active, pending, and scheduled orders, including clinic medications orders, diagnostic test orders, procedure orders and consult orders; where the start date of the order is 45 days before the date of the Encounter or 45 days after the date of the Encounter. The data comes from all [facility]. Test Date/Time Test Type Test Details Facility Name Apr 26, 2022 04:20 AM Consult Order UROLOGY OUTPT Brady PRADO [facility] Sfdc Consultant's Choice Apr 30, 2022 12:23 PM Laboratory - Chemistry .CYTO PRINT CHART R [place] ([facility]) Order COPY-LABEL SPECIMEN OTHER SP ONCE Lab Results: +/- 30 days of the encounter This section includes the Chemistry and Hematology Lab Results on record with [place] for the patient. Radiology Reports and Pathology Reports are provided separately, in subsequent sections.Lab Results This section contains the Chemistry/Hematology Results that were resulted 30 days before or 30 daysafter the date of the Encounter. Date/Time Source Result Type Result - Unit Interpretation Reference Range Comment Apr 30, 2022 12:47 [place] ([facility]) BASIC METABOLIC Specimen Ty pe: PLASMA PM PANEL+MG No comment enter ed. Ordering Provid er: EVANS SMALL Report Released Date/Time: Apr 30, 2022 12:31 PM Reporting Lab: [facility] [address] Performing Lab: [facility] [address] CREATININE 1.1 0.7-1.2 UREA NITROGEN 16 8-26 GLUCOSE 92 70-100 SODIUM 136 136-145 POTASSIUM 4.1 3.5-5.1 CHLORIDE 102 98-107 CO2 26 22-29 CALCIUM 10.3 H 8.4-10.2 MAGNESIUM 2.0 1.6-2.6 ANION GAP 8 5-15 CREAT EGFR(CKD-EPI) 70 >60 Apr 30, 2022 12:47 PM [place] ([facility]) CBC Specimen Type: BLOOD No comment enter ed. Ordering Provid er: EVANS SMALL Report Released Date/Time: Apr 30, 2022 12:31 PM Reporting Lab: [facility] [address] Performing Lab: [facility] [address] WBC 5.36 4.0-11.0 RBC 3.84 L 4.6-6.2 HGB 13.3 L 13.5-17.9 HCT 39.5 L 41-54 MCV 102.9 H 80-100 MCH 34.6 H 27-33 MCHC 33.7 32.0-37.5 PLT 291 150-400 MPV 9.9 7.4-10.4 RDW 14.0 11.5-14.5 Apr 26, 2022 03:24 AM [facility] URINALYSIS Specim en Type: URINE No comment enter ed. Ordering Provid er: SYLVIE BONDS Report Released Date/Time: Apr 26, 2022 03:38 AM Reporting Lab: [facility] [address] [facility] [address] Performing Lab: [facility] [address] [facility] [address] URINE COLOR COLORLESS SPECIFIC GRAVITY 1.007 1.003-1.035 [...] ALL of a patient's completed or amended [place] Advance and Rescinded Directives. The entries below indicate that a directive exists for the patient, but an actual copy is not included with this document. The data comes from all [place] facilities. Date Advance Directives Provider Source Mar 12, 2019 ADVANCE DIRECTIVE KIARA BRANDT [facility] Mar 12, 2019 ADVANCE DIRECTIVE DISCUSSION KIARA BRANDT [facility] Pathology Reports: +/- 30 days of the [...] the Encounter. The data comes from all [place] treatment facilities. Date/Time Pathology Report Provider Source May 02, 2022 10:49 AM LR CYTOPATHOLOGY REPORT: DEVIN FRIED [facility] LOCAL TITLE: LR CYTOPATHOLOGY REPORT JENNIFER STANDARD TITLE: PATHOLOGY REPORT DATE OF NOTE: MAY 02, 2022@10:49:51 ENTRY DATE: MAY 02, 2022@10:49:51 AUTHOR: DEVIN FRIED EXP COSIGNER: URGENCY: STATUS: COMPLETED $APHDR Reporting Lab: [facility] [CLIA# [id number]] [place] [address] - - - - - - - [...] - - - $TEXT Submitted by: EVANS SMALL Date obtain ed: Apr 30, 2022 - [...] - - - POSTOPERATIVE DIAGNOSIS: Surgeon/physician: EVANS SMALL MD =-=-=-=-=-=-=-=-=-=-=-=-=-=- =-=-=-=-=-=-=-=-=-=-=-=-=-=-=-=-=-=-=-=-=-=-=-=-=-= - - - - [...] - - - - Screened by: GIACOMO CHILDRESS Description: Voided urine; 100 mL clear pale yellow fluid re ceived. One ThinPrep slide prepared. Microscopic: Microscopic examination performed. RS Diagnosis: Urine, cytology -- - NEGATIVE FOR HIGH-GRADE UROTHELIAL CARCINOMA /es/ DEVIN FRIED STAFF PATHOLOGIST, PATHOLOGY & LABORATORY MED C Signed May 02, 2022@10:49 Performing Laboratory: Cytology Report Performed By: [facility] [CLIA# [id number]] [place] [address] $FTR - - - - - - [...] - - SHAWNA IBARRA STANDARD FORM 515 ID:[id number] SEX:M :1945 AGE: 76 LOC: 89809 PCP: Evans Small MD /catia/ DEVIN FRIED STAFF PATHOLOGIST, PATHOLOGY & LABORATORY MED SV C Signed: 05/02/2022 10:49 Apr 26, 2022 03:24 AM LR MICROBIOLOGY REPORT: [place] [facility] Reporting Lab: [facility] [CLIA# [id number]] [place] [address] Accession [UID]: [id number] [[id number]] Receiv ed: Apr 26, 2022@04:20 Collection sample: URINE Collection date: Mar 03:24 Provider: SYLVIE BONDS Comment on specimen: RECEIVED IN STERILE CUP Test(s) ordered: CULTURE & SUSCEPTIBILITY...... completed: Apr 27, 2022 * BACTERIOLOGY FINAL REPORT => Apr 27, 2022 11:0 6 TECH CODE: [id number] CULTURE RESULTS: NO GROWTH 24 HOURS Bacteriology Remark(s): THIS REPORT IS FINAL =--=--=--=--=--=--=--=--=--=--=--=--=--= --=--=--=--=--=--=--=--=--=--=--=--=-- Performing Laboratory: Bacteriology Report Performed By: [facility] [CLIA# [id number]] [place] [address] Encounter Notes: All associated encounter notes This section contains the clinical notes associated to the Encounter. Date/Time Encounter Note(s) Provider Source Apr 22, 2022 02:24 PM NURSING TELEPHONE ENCOUNTER NOTE: Kaleb QUIROZ [facility] LOCAL TITLE: TELEPHONE CARE NURSE TRIAGE STANDARD TITLE: NURSING TELEPHONE ENCOUNTER NOTE DATE OF NOTE: APR 22, 2022@14:24:47 ENTRY DATE: APR 22, 2022@14:42 AUTHOR: SALENA QUIROZ EXP COSIGNER: URGENCY: STATUS: COMPLETED TELEPHONE CARE NURSE TRIAGE Has ADDENDA Chief Complaint: Not applicable to call. The following identifiers were used to verify th is patient: . SSN. Comments: is currently inpatient at [facility] for hematuria. has a Corona catheter in place. [place] states sounds l pedro pablo he will be d/c'd from hospital tomorrow 04/23/22. [place] was told he n eeded to f/u with urology after discharge. requesting [facility] urology referral for f/u. Alerting PACT for further interaction. Best call back # is [phone] (Verified) Author: SALENA QUIROZ Caller Area: [place] The patient, SHAWNA IBARRA ([id number]) Phon e: called the call center. Caller Response: OTHER Class Code: Other specified counseling. Contact Advised to contact Telephone Care for any questions, concerns, new or worsening symptoms; services available 17/02. Evaluation/Management Code: HC PRO PHONE CALL 11 -20 MIN ([id number]). Starting at: 04/22/2022 @ 2:24:47 PM Ending at: 04/22/2022 @ 2:40:56 PM Length: 16 minutes. Patient's Email Address: [email or web address] Provider Info: [facility] ([facility]) ([id number]) PACT: GEENA PACT [place] *WH* (Focus: [facility]) Designated Pcp: EVANS SMALL PH ONE:[phone] Dresser Tender: CAITLIN BOBO PHONE:[phone] Clinical Associate: ROVERTO WOODS PHONE:[phone] Acid Tank Cleaner: CHRIS UMAÑA NAYELI:[phone] PACT Clinical Pharmacist: KYA JENKINS Clinical POC: Administrative POC: MH: [place] [id number] ([facility]) Psychologist BRYAN TRIPP PH ONE:[phone] PAGER: Type of call: CASE MANAGEMENT. /es/ SALENA WALSH 23 TELEPHONE PALLETIZER OPERATOR Signed: 04/22/2022 14:42 Receipt Acknowledged By: 04/23/2022 15:37 /catia/ Caitlin Bobo RN, [facility] N Registered Nurse 04/23/2022 ADDENDUM STATUS: COMPLETED Awaiting hospitalization documentation from [facility] . /sameer Bobo RN, [facility] Registered Nurse Signed: 04/23/2022 15:37 04/23/2022 ADDENDUM STATUS: COMPLETED Also noted they were trying to transfer pt to [facility] today - see 04/23/22 [facility] coordination notes. /catia/ Caitlin Bobo RN, [facility] Registered Nurse Signed: 04/23/2022 15:38
--- OUTSIDE RECORDS SUMMARY | 2022-05-26 08:32 | XMS_ITS | Encounter Summary ---
:1945 Author Organization [facility] Address [address] [place] [address] Support Name Relationship Address Phone TERRELL FORD [...] Number Chen BLUELINK COMPREHEN MAXI Jul 28, [id number] [phone] JAZMIN ELAURENCEU PATIENT TPA SIVE E-O 2006 0 [id number] L MAJOR [facility] STOR EXPRESS PRESCRIPT MAXI Jul 28, KEERTHI [id number] [phone] MARIELOS IBARRA PATIENT SCRIPTS - ION E O 2005 [id number] L SUBROGATIO TURKE N Y HUMANA MCR MEDICARE MCR Jul 28, [id number] [phone] KLU DELMERMARIELOS PATIENT (WNR) ADVANTAGE (WNR) 2013 1 89 8 L [employer] MCR MEDICARE MCR Jul 28, [id number] KLU DELMERMARIELOS PATIENT (WNR) ADVANTAGE (WNR) 2013 1 89 0 L HU[employer]NA MCR MEDICARE MCR Jul 28, [id number] [phone] KLViraj DOWELLMARIELOS PATIENT (WNR) ADVANTAGE (WNR) 2013 1 89 2 L Selected Encounter This section includes the information on record at [place] for the Encounter. Date/Time Encounter Type Encounter Reason Provider Source Description Apr 26, 2022 PULMONARY SLEEP STUDY ICD-10-CM G47.33 POP,LOU 12:13 AM SERVICE/PROCEDU Obstructive sleep L RE apnea (adult) (pediatric) with Provider Comments: Obstructive Sleep Apnea IHE Encounter Template Text not used by [place] Assessments - Encounter Diagnoses This section includes the primary and secondary diagnoses documented for the Encounter. Date/Time Primary/Secondary Diagnosis Name Provider Source Diagnosis Apr 26, 2022 PRIMARY Obstructive sleep [facility] [place] 12:13 AM apnea (adult) L HCS (pediatric) Plan of Treatment: Future Appointments (+ 6 months) and Future Tests (+/- 45 days) The Plan of Treatment section includes future care activities for the patient from all [place] [facility]. This section includes future appointments and future orders which are active, pending orscheduled.Future Appointments This section includes appointments that were scheduled to occur 6 months from the date of the Encounter, up to a maximum of 20 appointments. The data comes from all [facility]. Appointment Date/Time Appointment Type Appointment Facili ty Name Apr 30, 2022 11:00 AM AMBULATORY - PSYCHIATRY [place] ([facility]) Apr 30, 2022 12:15 PM AMBULATORY - MEDICINE [place] ([facility]) May 09, 2022 07:44 AM AMBULATORY - MEDICINE [facility] May 28, 2022 10:00 AM AMBULATORY - SURGERY [facility] Jun 25, 2022 09:30 AM AMBULATORY - NONE [place] ([facility]) Jun 28, 2022 01:00 PM AMBULATORY - MEDICINE [facility] Jul 02, 2022 11:00 AM AMBULATORY - PSYCHIATRY [place] ([facility]) Jul 25, 2022 09:45 AM AMBULATORY - MEDICINE [place] ([facility]) Active, Pending, and Scheduled Orders This section includes a listing of several types of active, pending, and scheduled orders, including clinic medications orders, diagnostic test orders, procedure orders and consult orders; where the start date of the order is 45 days before the date of the Encounter or 45 days after the date of the Encounter. The data comes from all [place] treatment [facility]. Test Date/Time Test Type Test Details Facility Name Apr 26, 2022 04:20 AM Consult Order UROLOGY OUTPT [facility] Otorhinolaryngologist's Choice Apr 30, 2022 12:23 PM Laboratory - Chemistry .CYTO PRINT CHART R [place] ([facility]) Order COPY-LABEL SPECIMEN OTHER SP ONCE Lab Results: +/- 30 days of the encounter This section includes the Chemistry and Hematology Lab Results on record with [place] for the patient. Radiology Reports and Pathology Reports are provided separately, in subsequent sections.Lab Results This section contains the Chemistry/Hematology Results that were resulted 30 days before or 30 daysafter the date of the Encounter. Date/Time Source Result Type Result - Unit Interpretation Reference Range Comment Apr 30, 2022 12:47 PM [place] ([facility]) CBC Specimen Type: BLOOD No comment enter ed. Ordering Provid er: EVANS AGUILAR Report Released Date/Time: Apr 30, 2022 12:31 PM Reporting Lab: [facility] [address] [address] Performing Lab: [facility] [address] WBC 5.36 4.0-11.0 RBC 3.84 L 4.6-6.2 HGB 13.3 L 13.5-17.9 HCT 39.5 L 41-54 MCV 102.9 H 80-100 MCH 34.6 H 27-33 MCHC 33.7 32.0-37.5 PLT 291 150-400 MPV 9.9 7.4-10.4 RDW 14.0 11.5-14.5 Apr 30, 2022 12:47 [place] ([facility]) BASIC METABOLIC Specimen Ty pe: PLASMA PM PANEL+MG No comment enter ed. Ordering Provid er: EVANS AGUILAR Report Released Date/Time: Apr 30, 2022 12:31 PM Reporting Lab: [facility] [address] Performing Lab: [facility] [address] CREATININE 1.1 0.7-1.2 UREA NITROGEN 16 8-26 GLUCOSE 92 70-100 SODIUM 136 136-145 POTASSIUM 4.1 3.5-5.1 CHLORIDE 102 98-107 CO2 26 22-29 CALCIUM 10.3 H 8.4-10.2 MAGNESIUM 2.0 1.6-2.6 ANION GAP 8 5-15 CREAT EGFR(CKD-EPI) 70 >60 Apr 26, 2022 03:24 AM [facility] URINALYSIS Specim en Type: URINE No comment enter ed. Ordering Provid er: SYLVIE BONDS Report Released Date/Time: Apr 26, 2022 03:38 AM Reporting Lab: [facility] [address] [facility] [address] Performing Lab: [facility] [address] [facility] [address] URINE COLOR COLORLESS SPECIFIC GRAVITY 1.007 1.003-1.035 URINE BILIRUBIN NEGATIVE NEGATIVE URINE KETONES NEGATIVE NEGATIVE URINE GLUCOSE NEGATIVE <30 URINE PROTEIN 10 <20 URINE PH 6.0 5.0-8.0 URINE WBC/HPF 34 H 0-7 URINE BACTERIA NONE SEEN URINE RBC/HPF 44 H 0-3 APPEARANCE CLEAR SQUAMOUS EPITHELIAL NONE SEEN URINE BLOOD 3+ NEGATIVE URINE NITRITE NEGATIVE NEGATIVE LEUKOCYTE ESTERASE 250 NEGATIVE Vital Signs: All taken on the encounter date This section contains inpatient and outpatient Vital Signs collected on the date of the Encounter. Date/Time Temperature Pulse Blood Respiratory SP02 Pain Height Weight Guero dy Source Pressure Rate Mass Index Apr 26, 98.2 F 63 168/78 17 /min 97 % 5 [place] 2021 03:27 /min mm[Hg] [facility] Advance Directives: All historical and current Section Date Range: From patient's date of to the date document was created. This section includes ALL of a patient's completed or amended [place] Advance and Rescinded Directives. The entries below indicate that a directive exists for the patient, but an actual copy is not included with this document. The data comes from all [place] facilities. Date Advance Directives Provider Source Mar 12, 2019 ADVANCE DIRECTIVE KIARA BRANDT [facility] Mar 12, 2019 ADVANCE DIRECTIVE DISCUSSION KIARA BRANDT [facility] Pathology Reports: +/- 30 days of the [...] the Encounter. The data comes from all [place] treatment facilities. Date/Time Pathology Report Provider Source May 02, 2022 10:49 AM LR CYTOPATHOLOGY REPORT: [facility] LOCAL TITLE: LR CYTOPATHOLOGY REPORT JENNIFER STANDARD TITLE: PATHOLOGY REPORT DATE OF NOTE: MAY 02, 2022@10:49:51 ENTRY DATE: MAY 02, 2022@10:49:51 AUTHOR: DEVIN FRIED EXP COSIGNER: URGENCY: STATUS: COMPLETED $APHDR Reporting Lab: [facility] [CLIA# [id number]] [address] [place] [address] - - - - - - - [...] - - - PATHOLOGY REPORT Accession No. [id number] - - - - - - - - - - - - - - - - - - - - - - - - - - - - - - - - - - - - - - - - $TEXT Submitted by: EVANS AGUILAR obtain ed: Apr 30, 2022 - - [...] - - - Screened by: GIACOMO BOSE MI Description: Voided urine; 100 mL clear pale yellow fluid re ceived. One ThinPrep slide prepared. Microscopic: Microscopic examination performed. RS Diagnosis: Urine, cytology -- - NEGATIVE FOR HIGH-GRADE UROTHELIAL CARCINOMA /catia/ DEVIN FRIED STAFF PATHOLOGIST, PATHOLOGY & LABORATORY MED SV C Signed May 02, 2022@10:49 Performing Laboratory: Cytology Report Performed By: [facility] [CLIA# [id number]] [facility] [place] [address] $FTR - - - - - - [...] - - SHAWNA IBARRA STANDARD FORM 515 ID:[id number] SEX:M :1945 AGE: 76 LOC: 93103 PCP: Evans Aguilar MD /catia/ DEVIN FRIED STAFF PATHOLOGIST, PATHOLOGY & LABORATORY MED SV C Signed: 05/02/2022 10:49 Apr 26, 2022 03:24 AM LR MICROBIOLOGY REPORT: [facility] Reporting Lab: [facility] [CLIA# [id number]] [place] [address] Accession [UID]: [id number] [[id number]] Receiv ed: Apr 26, 2022@04:20 Collection sample: URINE Collection date: Mar 03:24 Provider: SYLVIE BONDS Comment on specimen: RECEIVED IN STERILE CUP Test(s) ordered: CULTURE & SUSCEPTIBILITY...... completed: Apr 27, 2022 * BACTERIOLOGY FINAL REPORT => Apr 27, 2022 11:0 6 TECH CODE: [id number] CULTURE RESULTS: NO GROWTH 24 HOURS Bacteriology Remark(s): THIS REPORT IS FINAL =--=--=--=--=--=--=--=--=--=--=--=--=--= --=--=--=--=--=--=--=--=--=--=--=--=-- Performing Laboratory: Bacteriology Report Performed By: [facility] [CLIA# [id number]] [place] [address] Encounter Notes: All associated encounter notes This section contains the clinical notes associated to the Encounter. Date/Time Encounter Note(s) Provider Source Apr 26, 2022 12:13 AM SLEEP MEDICINE NOTE: [facility] LOCAL TITLE: SLEEP HST SET UP STANDARD TITLE: SLEEP MEDICINE NOTE DATE OF NOTE: APR 26, 2022@00:13 ENTRY DATE: APR 26, 2022@00:13:55 AUTHOR: LOU LORD EXP COSIGNER: URGENCY: STATUS: COMPLETED Service Location [facility] [facility] Device Information DeviceName: WatchPAT One DeviceSerialNumber: [id number] Patient was offered to receive home slee p testing device by mail and accepted. Verbal instruction was provided for use of home sleep testing equipment. All questions were answered and the patient expressed understanding of the provided instructions and care plan. [place] was mailed a package including: /catia/ JAQUELINE POWELL DECAL DECORATOR Signed: 04/26/2022 00:13
--- OUTSIDE RECORDS SUMMARY | 2022-05-26 08:32 | XMS_ITS | Encounter Summary ---
:1945 Author Organization [facility] Address [address] [place] [id number] Support Name Relationship Address Phone TERRELL FORD [...] Number Chen BLUELINK COMPREHEN MAXI Jul 28, [id number] [phone] JAZMIN ELAURENCEU PATIENT TPA SIVE E-O [phone] [id number] [phone] L [facility] EXPRESS PRESCRIPT MAXI Jul 28, KEERTHI [id number] [phone] MARIELOS IBARRA PATIENT SCRIPTS - ION E O 2005 [id number] L SUBROGATIO TURKE N Y HUMANA MCR MEDICARE MCR Jul 28, [id number] [phone] KLU GEMARIELOS PATIENT (WNR) ADVANTAGE (WNR) 2013 1 89 8 L [employer] MCR MEDICARE MCR Jul 28, [id number] [phone] KLU DELMERMARIELOS PATIENT (WNR) ADVANTAGE (WNR) 2013 1 89 2 L [employer]NA MCR MEDICARE MCR Jul 28, [id number] KLU GEMARIELOS PATIENT (WNR) ADVANTAGE (WNR) 2013 1 89 0 L Selected Encounter This section includes the information on record at [place] for the Encounter. Date/Time Encounter Type Encounter Reason Provider Source Description Apr 26, 2022 EMERGENCY DEPT EMERGENCY DEPT ICD-10-CM R31.0 ISRA BONDS 03:21 AM VISIT Gross hematuria with Provider Comments: Gross Hematuria IHE Encounter Template Text not used by [place] Assessments - Encounter Diagnoses This section includes the primary and secondary diagnoses documented for the Encounter. Date/Time Primary/Secondary Diagnosis Name Provider Source Diagnosis Apr 26, 2022 PRIMARY Gross hematuria TIN BONDS [place] 04:28 AM [facility] Plan of Treatment: Future Appointments (+ 6 months) and Future Tests (+/- 45 days) The Plan of Treatment section includes future care activities for the patient from all [place] [facility]. This section includes future appointments and future orders which are active, pending orscheduled.Future Appointments This section includes appointments that were scheduled to occur 6 months from the date of the Encounter, up to a maximum of 20 appointments. The data comes from all [facility]. Appointment Date/Time Appointment Type Appointment Facili ty Name Apr 30, 2022 11:00 AM AMBULATORY - [place]CHIATRY [place] ([facility]) Apr 30, 2022 12:15 PM AMBULATORY - [place]ICINE [place] ([facility]) May 09, 2022 07:44 AM AMBULATORY - MEDICINE [facility] May 28, 2022 10:00 AM AMBULATORY - SURGERY [facility] Jun 25, 2022 09:30 AM AMBULATORY - NONE [place] ([facility]) Jun 28, 2022 01:00 PM AMBULATORY - MEDICINE [facility] Jul 02, 2022 11:00 AM AMBULATORY - PS[place]CHIATRY [place] ([facility]) Jul 25, 2022 09:45 AM AMBULATORY - [place]ICINE [place] ([facility]) Active, Pending, and Scheduled Orders This section includes a listing of several types of active, pending, and scheduled orders, including clinic medications orders, diagnostic test orders, procedure orders and consult orders; where the start date of the order is 45 days before the date of the Encounter or 45 days after the date of the Encounter. The data comes from all [facility]. Test Date/Time Test Type Test Details Facility Name Apr 26, 2022 04:20 AM Consult Order UROLOGY OUTPT Cons [place] PRADO [facility] Window Installation Subcontractor's Choice Apr 30, 2022 12:23 PM Laboratory - Chemistry .CYTO PRINT CHART R [place] (CB) Order COPY-LABEL SPECIMEN OTHER SP ONCE Lab Results: +/- 30 days of the encounter This section includes the Chemistry and Hematology Lab Results on record with [place] for the patient. Radiology Reports and Pathology Reports are provided separately, in subsequent sections.Lab Results This section contains the Chemistry/Hematology Results that were resulted 30 days before or 30 daysafter the date of the Encounter. Date/Time Source Result Type Result - Unit Interpretation Reference Range Comment Apr 30, 2022 12:47 [place] ([facility]) BASIC METABOLIC Specimen Ty pe: PLASMA PM PANEL+MG No comment enter ed. Ordering Provid er: EVANS SMALL Report Released Date/Time: Apr 30, 2022 12:31 PM [facility] [id number] Performing Lab: [facility] [id number] CREATININE 1.1 0.7-1.2 UREA NITROGEN 16 8-26 GLUCOSE 92 70-100 SODIUM 136 136-145 POTASSIUM 4.1 3.5-5.1 CHLORIDE 102 98-107 CO2 26 22-29 CALCIUM 10.3 H 8.4-10.2 MAGNESIUM 2.0 1.6-2.6 ANION GAP 8 5-15 CREAT EGFR(CKD-EPI) 70 >60 Apr 30, 2022 12:47 PM [place] ([facility]) CBC Specimen Type: BLOOD No comment enter ed. Ordering Provid er: EVANS SMALL Report Released Date/Time: Apr 30, 2022 12:31 PM Reporting [facility] [id number] Performing Lab: [facility] [address] WBC 5.36 4.0-11.0 RBC 3.84 L 4.6-6.2 HGB 13.3 L 13.5-17.9 HCT 39.5 L 41-54 MCV 102.9 H 80-100 MCH 34.6 H 27-33 MCHC 33.7 32.0-37.5 PLT 291 150-400 MPV 9.9 7.4-10.4 RDW 14.0 11.5-14.5 Apr 26, 2022 03:24 AM [facility] URINALYSIS Specim en Type: URINE No comment enter ed. Ordering Provid er: TIN BONDS Report Released Date/Time: Apr 26, 2022 03:38 AM Reporting Lab: [facility] [id number] Performing Lab: [facility] [id number] URINE COLOR COLORLESS SPECIFIC GRAVITY 1.007 1.003-1.035 [...] Guero dy Source Pressure Rate Mass Index Sep 30, 98.2 F 63 168/78 17 /min 97 % 5 [place] 2021 03:27 /min mm[Hg] [facility] Advance Directives: All historical and current Section [...] Mar 12, 2019 ADVANCE DIRECTIVE KIARA BRANDT [facility] Mar 12, 2019 ADVANCE DIRECTIVE DISCUSSION KIARA BRANDT [facility] Pathology Reports: +/- 30 days of the [...] the Encounter. The data comes from all [place] treatment facilities. Date/Time Pathology Report Provider Source May 02, 2022 10:49 AM LR CYTOPATHOLOGY REPORT: DEVIN FRIED [facility] LOCAL TITLE: LR CYTOPATHOLOGY REPORT JENNIFER STANDARD TITLE: PATHOLOGY REPORT DATE OF NOTE: MAY 02, 2022@10:49:51 ENTRY DATE: MAY 02, 2022@10:49:51 AUTHOR: DEVIN FRIED EXP COSIGNER: URGENCY: STATUS: COMPLETED $APHDR Reporting Lab: [facility] [CLIA# [id number]] [place] [address] - - - - - - - [...] 2022@10:49 Performing Laboratory: Cytology Report Performed By: [facility] [CLIA# [id number]] [place] [address] $FTR - - - - - - [...] - - SHAWNA IBARRA STANDARD FORM 515 ID:[id number] SEX:M :1945 AGE: 76 LOC: [id number] PCP: Evans Small MD /catia/ DEVIN FRIED STAFF PATHOLOGIST, PATHOLOGY & LABORATORY MED SV C Signed: 05/02/2022 10:49 Apr 26, 2022 03:24 AM LR MICROBIOLOGY REPORT: IA NNBART [facility] Reporting Lab: [facility] [CLIA# [id number]] [place] [address] Accession [UID]: [id number] [[id number]] Receiv ed: Apr 26, 2022@04:20 Collection sample: URINE Collection date: Mar 03:24 Provider: TIN BONDS Comment on specimen: RECEIVED IN STERILE CUP Test(s) ordered: CULTURE & SUSCEPTIBILITY...... completed: Apr 27, 2022 * BACTERIOLOGY FINAL REPORT => Apr 27, 2022 11:0 6 TECH CODE: [id number] CULTURE RESULTS: NO GROWTH 24 HOURS Bacteriology Remark(s): THIS REPORT IS FINAL =--=--=--=--=--=--=--=--=--=--=--=--=--= --=--=--=--=--=--=--=--=--=--=--=--=-- Performing Laboratory: Bacteriology Report Performed By: [facility] [CLIA# [id number]] [address] [place] [address] Encounter Notes: All associated encounter notes This section contains the clinical notes associated to the Encounter. Date/Time Encounter Note(s) Provider Source Apr 26, 2022 04:32 NURSING EMERGENCY DEPT NOTE: BENITEZ HAMMER [facility] AM LOCAL TITLE: EMERGENCY DEPT NURSING NOTE R T STANDARD TITLE: NURSING EMERGENCY DEPT NOTE DATE OF NOTE: APR 26, 2022@04:32 ENTRY DATE: APR 26, 2022@04:33:26 AUTHOR: MILIND HAMMER EXP COSIGNER: URGENCY: STATUS: COMPLETED Emergency Department Discharge Education Personal Protective Equipment (PPE): Patient wa s in mask on arrival, Patient was in mask on arrival, patient remaine d masked for entire visit, RN used PPE during every encounter with the pat britney, /PA/MAJOR APPLIANCE ASSEMBLY SUPERVISOR used PPE during every encounter with the patient The patient was given education on the followin g: HEMATURIA (Blood in the urine) EDUCATION/TEACH BACK: [facility] discharge instructions have been revie wed with Patient AND had an opportunity to ask questions, has verbal ized understanding, have received a copy of the [facility] instructions EDUCATIONAL LEVEL OF UNDERSTANDING: Patient was ready and receptive to education. BARRIERS TO LEARNING: No barriers identified Accompanied by: Self Mode of Transportation: Drive self EXIT ADDITIONAL EDUCATION GIVE: Discharged to: Home /catia/ MILIND HAMMER RN REGISTERED NURSE Signed: 04/26/2022 04:34 Apr 26, 2022 04:23 EMERGENCY DEPT EDUCATION NOTE: TIN BONDS [facility] AM LOCAL TITLE: EMERGENCY DEPT DISCHARGE INSTRUCTI ONS STANDARD TITLE: EMERGENCY DEPT EDUCATION NOTE DATE OF NOTE: APR 26, 2022@04:23:15 ENTRY DATE: APR 26, 2022@04:23:15 AUTHOR: TIN BONDS COSIGNER: URGENCY: STATUS: COMPLETED DISCHARGE INSTRUCTIONS IMPORTANT: We examined and treated you today on an emergency basis only. This was not a substitute for, or an effort t o provide, comprehensive medical care. In most cases, you must let your healthcare provider check you again. Tell your healthcare provider about any new or las ting problems. We cannot recognize and treat all injuries or illnesses in one Emergency Department visit. After you leave, you should follow the instructions below. You were treated today by Tin Bonds MD. Special Information This Information Is About Your Follow Up Care Call your Primary Care Team if you have any prob lems or concerns. You can reach them by calling . We have sent a consultation request to the [facility] on your behalf. The Urology Clinic will call you to schedule this ap pointment. If you have not received a call in 2 business days please call , ask for the clinic to which you have been referred, request to schedule the appointment. Future Appointments 04/30/2022 at 11:00am GEENA CHIROShitla KOCH RNW 06/25/2022 at 9:30am [facility] BLOOD DRAW 06/28/2022 at 1:00pm [facility] ONC MICHAEL PA 07/25/2022 at 9:45am [facility] PACT SOLOMON WH This Information Is About Your Illness and Diagn osis HEMATURIA (Blood in the urine) Hematuria is blood in the ur ine. Blood in the urine may be visible, making your urine red or pink, or it may only be seen in the lab under a microscope. What causes hematuria? -bladder infection -kidney infection -strenuous exercise -kidney or bladder stones -tumors in the kidneys or bladder -problems with your blood that make you prone t o bleeding What are the signs and symptoms of hematuria? -red urine -pink urine -You may have blood in your urine with no signs or symptoms. Hematuria may be accompanied by pain or burning with urination, pain in your back or side, fever, or nausea and vomiting. How does my health care provider know what is ca using my hematuria? -urine tests -blood tests -kidney x-rays -cystoscopy (looking inside the bladder with a tiny camera on the end of a soft small tube) How will my hematuria be treated? Treatment will depend on what is causing your he maturia. -You may not need any treatment. -You may receive antibiotics if you have an inf ection. -You may need surgery if you have stones or a t umor. Please follow these instructions: -Keep all follow-up appointments. -Take medications ordered for you as instructed . -Watch your urine for signs of more bleeding. -Drink plenty of water (at least 8 glasses a da y), unless otherwise instructed by your health care provider. -If you are taking antibiotics, keep ta scottie them until they are gone, even if you feel fine and the hematuria clears up. Contact your health care provider as soon as pos sible if you have any of the following: -more blood in your urine. -pain or burning when you urinate. -pain in your back or side. -nausea or vomiting. -chills. -fever. -difficulty passing your urine. -any other problems or concerns. HYPERTENSION STAGE 2 (High Blood Pressure Stage 2) Blood pressure is a measurem ent of how much force or pressure your blood exerts on the inner estrada of your arteries. Art eries are the blood vessels that carry blood from your heart to the rest of your body. Healthy arteries are strong and flexible. The inner estrada have a smooth lining t o allow blood to flow freely. Blood pressure is measured by two numbers: -Systolic (top number)-measures the pressure yo ur blood exerts on the estrada of your arteries when your heart beats -Diastolic (bottom number)-measures the pressur e your blood exerts on the estrada of your arteries between beats (when your heart is resting) Your health care provider will tell you what normal blood pressure is for you. Hypertension Stage 2 occurs when your blood pres sure is consistently 140 or higher systolic or 90 or higher diastolic. When your blood pressure is too high for too melody g, the extra pressure can damage and weaken the estrada of your arteries. Yo ur arteries' inner lining can develop tiny tears. -Blood cells can collect and form a saji t in the tears, allowing less blood to flow through your arteries. If the bloo d clot breaks free and travels through your bloodstream, it can lodge in your heart (causing a heart attack) or your brain (causing a stroke). -LDL cholesterol (the bad cholesterol) can al so collect in the damaged arteries. This causes your arteries to become l ess elastic. It also causes the inner part of your arteries to narrow, allo wing less blood to flow through them. Damaged blood vessels due to high blood pressure can affect your whole body: -Bulges can form in weakened blood vessels. The se are called aneurysms. Aneurysms can possibly burst, causing life-thre atening bleeding. -Your heart has to work harder than usual in or tracy to pump blood. Over time, your heart muscle gets weaker and eventually fa ils. -The reduced blood flow to the rest of your bod y can cause damage to any of your body organs. The organs most affected by h igh blood pressure are the heart, brain, kidneys, eyes, and sexual organs. What are the risk factors for hypertension? Risk factors are circumstances that increase you r chance of high blood pressure. It is possible for you to change some risk factors, while some risk factors are not under your control. Risk factors related to who you are: -Your age: The chances of high blood pressure i ncrease with age. -Your family history: You are at an increased r isk of high blood pressure if your close relatives have had it. -Your gender: Until age 64, men are more likely to have high blood pressure than women. After age 65, women are more likely to have high blood pressure. -Your race: Americans tend to have high blood pressure more often than people from other racial backgrounds in e [place]. -Having chronic kidney disease Risk factors that you can change to prevent and manage your high blood pressure: -Being overweight or obese -Too little exercise and physical activity -Having an unhealthy diet that is high in calor ies (eating foods that are high in salt, sugar, and saturated and trans fa ts) -Drinking too much alcohol -Smoking and using tobacco -Stress -Psychosocial stress and low socioeconomic stat us (affecting access to basic living necessities, medicines, and health care providers; and the ability to make healthy lifestyle changes) -High cholesterol -Diabetes -Sleep apnea (a health condition in which peopl e stop breathing for periods of time when they are sleeping) While high blood pressure can't be cured , making lifestyle changes can keep it under control. Medicines are often prescribed fo r people with Stage 2 Hypertension. Both lifestyle changes and medicin e will reduce your risk of heart disease, stroke, and other associated heal th problems. There are many different kinds of medicines used to treat high blood pressure. It may take some trials to find the right medicine for you. You may need more than one medicine to keep your blood pressure under contr ol. Please follow these instructions: Commit to a plan to lower your blood pressure. -Work together with your health care provider. Regular meetings with your health care providers are important for managin g your high blood pressure. Don't miss any appointments. -Quit smoking and using tobacco. Talk with your health care provider about programs and medicines that can help you quit s moking. -Eat a heart-healthy, well-balanced diet. -Limit the amount of sodium (salt) in your diet . Follow the DASH meal plan (additional information available). -Eat heart-healthy foods: fresh fruits and vege tables, beans, whole grains, and lean protein (chicken, fish). Limit or avoid processed foods, fried foods, high-fat baked pastries, saturated fats, and partially hydrogenated and hydrogenated fats. Check food labels and select foods without trans fats. -Talk to your healthcare provider about taking vitamin supplements such as omega-3 fatty acids. -Keep your blood sugar under control if you are diabetic. -Lose weight, if you are overweight. Maintain a healthy weight. -Enjoy regular, daily exercise and physical act ivity. It not only helps reduce blood pressure, but also helps reduce yo ur cholesterol and keep your blood sugar at a normal level. It also improves your mood by increasing oxygen to your brain. -Limit the amount of alcohol you drink (1 drink per day for women, 2 drinks per day for men). -Learn how to monitor your blood pressure at [facility]. Check your blood pressure on a regular basis. Write down the date, time, and your blood pressure numbers. Get to know your blood pressure number s and what numbers are normal for you. If there are issues that are keeping you from following through with your plan (busy schedule, lifestyle or habits, cost of medicines, or motivation), talk to your health care provider about ways to overcome them. Contact your health care provider immediately if : -Your blood pressure is higher than 180 systoli c and/or 120 diastolic. -You have chest pain. -You have shortness of breath. -You get a sudden, severe headache. -You have weakness, numbness, or tingling of yo ur arms, legs, or face. -You have trouble speaking. -You have changes in your vision. -You suddenly feel confused or disoriented. Contact your health care provider as soon as belem black if: -Your blood pressure readings are increasing. -You feel unusually tired, dizzy, or lightheade d. -Your urine is dark or tea colored. -You don't urinate as often as usual or only in small amounts. -You have any questions or concerns. For more information, contact: [place] [employer] (AHA) www.heart.org National Heart, Lung & Blood Silver Plume www.nhlbi.nih.gov IMPORTANT MEDICATION INFORMATION -Your medication list includes any medications that were recently prescribed but not filled by the Pharmacy (PENDING Yaritza bardales). -Included are any known ACTIVE Medicines. Jesus yates review this list to make sure it is accurate, if this list does not matc h the current medications you are taking please follow-up with your Primary C are Team to have your Medication List reviewed. Pending Medications [none] Active Medications CHOLECALCIFEROL TAB 1000UNIT MOUTH EVERY DAY (Non-VA Medication) FINASTERIDE 5MG TAB TAKE ONE TABLET BY MOUTH EVERY DAY FOR PROSTATE HYDROCHLOROTHIAZIDE 25MG TAB TAKE ONE TABLET BY MOUTH EVERY DAY NON VA MED NOT LISTED MISCELLANEOUS CALCIUM 1000 MG/PHOSPHORUS 500 MG/MAGNESIUM 500 MG - 1 TABLET EVERY DAY (Non-VA Medication) TAMSULOSIN HCL 0.4MG CAP TAKE TWO CAPSULES BY MOUTH EVERY DAY FOR PROSTA TE, FOR BLADDER EMPTYING Medications Medications in the last 90 days [none] Discontinued Medications Medications discontinued in the last 90 days FINASTERIDE 5MG TAB TAKE ONE TABLET BY MOUTH EVERY DAY FOR PROSTATE HYDROCHLOROTHIAZIDE 25MG TAB TAKE ONE TABLET BY MOUTH EVERY DAY YOU ARE THE MOST IMPORTANT FACTOR IN YOUR RECOVE RY. Follow the above instructions carefully. Take your medicines as p rescribed. If you do not understand any of your medicines, please ask que stions. If you have any outstanding tests from the emergency department, please contact your provider to review them in the next 3-5 day s. If you have new symptoms, feel worse, or are not getting better as discussed, call to discuss your health quest ions and arrange for follow-up care, or return to the Emergency Room IF YOU ARE EXPERIENCING A MEDICAL EMERGENCY CALL 911 OR GO TO THE NEAREST EMERGENCY ROOM /catia/ TIN BONDS MD STAFF PHYSICIAN Signed: 04/26/2022 04:23 Apr 26, 2022 04:21 PHYSICIAN EMERGENCY DEPT NOTE: TIN BONDS [facility] LOCAL TITLE: EMERGENCY DEPT NOTE STANDARD TITLE: PHYSICIAN EMERGENCY DEPT NOTE DATE OF NOTE: APR 26, 2022@04:21 ENTRY DATE: APR 26, 2022@04:21:10 AUTHOR: TIN BONDS EXP COSIGNER: URGENCY: STATUS: COMPLETED Personal Protective Equipment (PPE): Patient was in mask in exam room. MD/PA/MAJOR APPLIANCE ASSEMBLY SUPERVISOR used PPE during every encounter with th e patient. Nurse's note reviewed as available. Chief Complaint: The patient is a 76 yo MALE com plaining of: blood and blood clot in urine History of present illness: The patient is a 76 yo MALE here with above. Patient is a 76-year-old gentleman who d escribes onset blood and blood clot in urine Thursday April 21, 2022. Urine h ad been baseline with benign prostatic hypertrophy day prior. Patient explains that he was admitted to [facility]. He describes what sounds like continuous bladder irrigation followed by transfer to [facility] for urologic evaluation. Patient describes CT as well as what sounds like consideration for an tibiotic. Patient describes being discharged home without a catheter and with pink urine. Patient explains that he was intended to follow-up with urology s pecifically for cystoscopy. Although patient had relativ zain clear urine pushing fluid, he describes going to bed and noting blood and blo od clot recurrence which prompted presentation here. Upon arrival, patient resides urine sample witho ut blood grossly and without blood clot. Patient does not describe irritative symptoms. A lthough history of red phan hemorrhagic telangiectasias noted, this has been stable is followed by hematology oncology and primary care team. Nafisa smith is also noted to have history of DVT/PE and is currently not on antico agulation. Patient does not voice additional concerns. Allergies: SERTRALINE (November 25, 2012) CITALOPRAM (Aug 31, 2013) Review of Systems: A complete 10 point review of systems is negative unless otherwise noted in HPI or below. Past Medical History: Active problems - Computerized Problem List is t he source for the followin. 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 Erectile dysfunction (SNOMED CT 263695866) 4. Ocular migraine 5. Iron deficiency anemia due to chronic blood loss 6. History of deep vein thrombosis - LLE 08/2015 7. Irritable bowel syndrome with diarrhea 8. Pulmonary embolism - history of multiple small PEs in his right ch est 08/2015 9. Insomnia 10. Benign prostatic hypertrophy 11. Varicose veins of left lower limb 12. Acquired lactose intolerance 13. Exposure to combat Habits: Alcohol noted on chart review Medications: Active Outpatient Medications (excluding Supplie s): Outpatient Medications Status 1) FINASTERIDE 5MG TAB TAKE ONE TABLET BY MOUTH EVERY ACTIVE DAY FOR PROSTATE 2) HYDROCHLOROTHIAZIDE 25MG TAB TAKE ONE TABLET BY MOUTH ACTIVE EVERY DAY 3) TAMSULOSIN HCL 0.4MG CAP TAKE TWO CAPSULES BY MOUTH ACTIVE EVERY DAY FOR PROSTATE, FOR BLADDER EMPTYING Non-VA Medications Status 1) Non-VA CHOLECALCIF 25MCG (D3-1,000UNIT) TAB 1 000UNIT ACTIVE MOUTH EVERY DAY 2) Non-VA NON VA MED NOT LISTED MISCELLANEOUS CA LCIUM ACTIVE 1000 MG/PHOSPHORUS 500 MG/MAGNESIUM 500 MG - 1 TABLET EVERY DAY 5 Total Medications Physical Exam Temp: 98.2 F [36.8 C] (04/26/2022 03:27) Blood Pressure: 168/78 (04/26/2022 03:27) Heart Rate: 63 (04/26/2022 03:27) Resps: 17 (04/26/2022 03:27) O2: 97% (04/26/2022 03:27) General: NAD, alert and conversant Ambulatory without assistance Speech is clear and coherent Patient does not appear ill Head: NC/AT Neck: supple Neuro: alert, grossly nonfocal Skin: warm and dry Last 48 Hrs Lab Results from: APR 26, 2022 04:21 APPEARANCE: CLEAR UR COLOR: COLORLESS SPECIFIC GRAVITY: 1.007 UR BLOOD: 3+ UR BILIRUBIN: NEGATIVE UR KETONES: NEGATIVE UR GLUCOSE: NEGATIVE UR PROTEIN: 10 UR PH: 6.0 WBC/HPF: 34 H RBC/HPF: 44 H BACTERIA: NONE SEEN SQUAMOUS EPITHELIAL: NONE SEEN NITRITE, URINE: NEGATIVE LEUKOCYTE ESTERASE: 250 Imaging: Bladder scan 229cc post void ASSESSMENT/PLAN: 76 yo MALE with episodic gross hematuria with cl ot It is reassuring that urine is relatively clear here. Bladder scan is equivocal. Discussed potential indications for a ntibiotic as well as consideration for catheter. Patient is c onfident he can push fluids and return to the emergency department with worsening or if unable to void. Release of Information has been sent to [facility] and [facility] to support outpati ent urology follow-up which is also been requested. Patient was noted to be hypertensive here. Nafisa nt is asymptomatic in this regard. Patient is discharged home in stable condition. Return to ER precautions are briefly discussed. noted: COVID-19 (PFIZER), MRNA, LNP-S, P* 3 04/26/2021 [place]* <C> 2 09/09/2020 [place] * <C> 1 08/19/2020 [place] * <C> COVID-19 (PFIZER), MRNA, LNP-S, P* 3 10/30/2021 [place] * <C> INFLUENZA, INJECTABLE, QUADRIVALE* 04/26/2021 [place]* Test results communicated with patient as availa ble. Condition on discharge: No change /es/ TIN BONDS MD STAFF PHYSICIAN Signed: 04/26/2022 04:29 Receipt Acknowledged By: * AWAITING SIGNATURE * BRYAN TRIPP * AWAITING SIGNATURE * EVANS SMALL Apr 26, 2022 04:01 NURSING EMERGENCY DEPT NOTE: [facility]ENITE[facility] HAM[facility] TITLE: EMERGENCY DEPT NURSING NOTE R T STANDARD TITLE: NURSING EMERGENCY DEPT NOTE DATE OF NOTE: APR 26, 2022@04:01 ENTRY DATE: APR 26, 2022@04:01:45 AUTHOR: MILIND HAMMER EXP COSIGNER: URGENCY: STATUS: COMPLETED Nursing Focused Assessment: CHIEF COMPLAINT: hematuria x4 days. vet report been inpatient at two different hospitals ([facility] and [facility]), DARRELL requested by Dr. Bonsd. Allergies/ADR: SERTRALINE (November 25, 2012) CITALOPRAM (Aug 31, 2013) Additional allergies not listed: Vital Signs * Blood Pressure: 168/78 (04/26/2022 03:27) Heart Rate: 63 (04/26/2022 03:27) Respirations: 17 (04/26/2022 03:27) Temperature: 98.2 F [36.8 C] (04/26/2022 03:27) Pain: 5 (04/26/2022 03:27) Weight: 173.9 lb [78.88 kg] (07/26/2021 10:25) O2 Sats: 97% (04/26/2022 03:27) Pain intensity: (Patient rates the pain. 0 = no pain; 10 = worst pain) Is your pain new with this visit? (acute or chroni c) Yes Current Pain rating score: 5 (04/26/2022 03:27) Pain score at worst: 7 Pain score at best: 0 Location of pain: penis Description of pain: sore/tender Duration: Aggravating factors: Alleviating factors: Tobacco use: No Alcohol use: Yes What type of alcohol are you using: beer How often are you drinking alcohol: 1-3 bottles a day Any drugs besides what is prescribed or over th e counter: No ABUSE/NEGLECT: No evidence of abuse/neglect REVIEW OF SYSTEM-FOCUSED ASSESSMENT Neurological: Alert Respiratory: Quality of breath: Equal and unlabored chest ri se and fall Genitourinary: Pain: Onset: 04/21 Location: bladder Quality: burning Hematuria History of retention issues Bladder scan results: 229ml Skin: Color: Normal for ethnicity Temperature: Within Normal Limits Condition: within normal limits INTERVENTIONS: Oriented to room and bed controls Call light within reach of patient or family/fr iend Bed in low position and locked /es/ MILIND HAMMER RN REGISTERED NURSE Signed: 04/26/2022 04:14 Apr 26, 2022 03:28 NURSING EMERGENCY DEPT TRIAGE NOTE: NUPUR VASQUEZ [facility] TITLE: EMERGENCY DEPARTMENT NURSING TRIAG E NOTE R T STANDARD TITLE: NURSING EMERGENCY DEPT TRIAGE NO TE DATE OF NOTE: APR 26, 2022@03:28 ENTRY DATE: APR 26, 2022@03:28:51 AUTHOR: MILIND HAMMER EXP COSIGNER: URGENCY: STATUS: COMPLETED Emergency Department/Urgent Care Center Triage Patient age:76 Sex: MALE On arrival patient was: AMBULATORY Patient phone number: Allergies: SERTRALINE (November 25, 2012) CITALOPRAM (Aug 31, 2013) Subjective/Chief Complaint: hematuria. vet states he was inpatient at [facility] for 6 days for bloody urine with clots, dc'd home 04/25. states he still passing clots and experiencing blood in urine. vet also report pen is pain 5/10 Objective: vital stable ambulated to desk The patient is not a fall risk. Vital Signs * Blood Pressure: 168/78 (04/26/2022 03:27) Heart Rate: 63 (04/26/2022 03:27) Respirations: 17 (04/26/2022 03:27) Temperature: 98.2 F [36.8 C] (04/26/2022 03:27) Pain: 5 (04/26/2022 03:27) Weight: 173.9 lb [78.88 kg] (07/26/2021 10:25) O2 Sats: 97% (04/26/2022 03:27) Emergency Severity Index (AVIS) level Level 3 Current Medications: Active Outpatient Medications (including Supplie s): Active Outpatient Medications Status 1) FINASTERIDE 5MG TAB TAKE ONE TABLET BY MOUTH EVERY ACTIVE DAY FOR PROSTATE 2) HYDROCHLOROTHIAZIDE 25MG TAB TAKE ONE TABLET BY MOUTH ACTIVE EVERY DAY 3) TAMSULOSIN HCL 0.4MG CAP TAKE TWO CAPSULES BY MOUTH ACTIVE EVERY DAY FOR PROSTATE, FOR BLADDER EMPTYING Active Non-VA Medications Status 1) Non-VA CHOLECALCIF 25MCG (D3-1,000UNIT) TAB 1 000UNIT ACTIVE MOUTH EVERY DAY 2) Non-VA NON VA MED NOT LISTED MISCELLANEOUS CA LCIUM ACTIVE 1000 MG/PHOSPHORUS 500 MG/MAGNESIUM 500 MG - 1 TABLET EVERY DAY 5 Total Medications Current Problems: Hypertensive disorder ([facility] [id number]) HHT - Hered itary hemorrhagic telangiectasia ([facility] [id number]) Erectile dysfunction ([facility] [id number]) Ocular migr shane ([facility] [id number]) Iron deficiency anemia due to chronic blHistory of deep vein thrombosis ([facility] [id number]) Irritable bowel syndrome with diarrhea (Pulmonar y embolism ([facility] [id number]) Insomnia ([facility] [id number]) Benign prostatic hypert rophy ([facility] [id number]) Varicose veins of left lower limb (SCT 1Acquired lactose intolerance ([facility] 91280109) Exposure to combat ([facility] [id number]) Coronavirus Disease 2019 (COVID-19) Screen The patient was asked if in the last 14 days the y have had new onset of any COVID-19 symptoms. They report the following: No symptoms Within the past 14 days, the patient reports no exposure to someone with a febrile/respiratory illness or someone with a kn own or suspected case of COVID-19 (within 6 feet for > 15 minutes). Result: Screen is negative. Result: Screen is negative. Suicide Screen: [place]as[place] Suicide Severity Rating Scale (C-SSRS) screener 1. Over the past month, have you wished you wer e or wished you could go to sleep and not wake up? No 2. Over the past month, have you had an y actual thoughts of killing yourself? No 3. Over the past month, have you been thinking about how you might do this? Response not required due to responses to other questions. 4. Over the past month, have you had th [place] thoughts and had some intention of acting on [...] or prepared to do anything to end your life (for e xample, collected pills, obtained a gun, gave away valuables, went to th e roof but didn't jump)? No 8. If YES, was this within the past 3 months? Response not required due to responses to other questions. /catia/ MILIND HAMMER RN REGISTERED NURSE Signed: 04/26/2022 03:32
--- OUTSIDE RECORDS SUMMARY | 2022-05-26 08:33 | XMS_ITS | Encounter Summary ---
:1945 Author Organization [facility] rs Address [address] [place] [id number] Support Name Relationship Address Phone LILIANA TERRELL [...] Number Chen BLUELINK COMPREHEN MAXI Jul 28, [id number] [phone] JAZMIN ELAURENCEU PATIENT TPA SIVE E-O 2005 [id number] [phone] L [facility] [employer] [employer] PRESCRIPT MAXI Jul 28, KEERTHI [id number] [phone] MARIELOS IBARRA PATIENT SCRIPTS - ION E O 2005 [id number] L SUBROGATIO TURKE N Y [employer] MCR MEDICARE MCR Jul 28, [id number] [phone] KLU DELMERMARIELOS PATIENT (WNR) ADVANTAGE (WNR) 2013 1 89 8 L [employer] MCR MEDICARE MCR Jul 28, [id number] KLU DELMERMARIELOS PATIENT (WNR) ADVANTAGE (WNR) 2013 1 89 0 L [employer] MCR MEDICARE MCR Jul 28, [id number] [phone] KLU DELMERMARIELOS PATIENT (WNR) ADVANTAGE (WNR) 2013 1 89 2 L Selected Encounter This section includes the information on record at [place] for the Encounter. Date/Time Encounter Type Encounter Description Reason Provider Source Apr 30, 2022 01:34 Outpatient Encounter ADMIN PAT ACTIVTIES PM (MASNONCT) IHE Encounter Template Text not used by [place] Plan of Treatment: Future Appointments (+ 6 months) and Future Tests (+/- 45 days) The Plan of Treatment section includes future care activities for the patient [facility] [place] [facility] This section includes future appointments and future orders which are active, pending orscheduled.Future Appointments This section includes appointments that were scheduled to occur 6 months from the date of the Encounter, up to a maximum of 20 appointments. The data comes from all [facility]. Appointment Date/Time Appointment Type Appointment Facili ty Name May 09, 2022 07:44 AM AMBULATORY - MEDICINE [facility] May 28, 2022 10:00 AM AMBULATORY - SURGERY [facility] Jun 25, 2022 09:30 AM AMBULATORY - NONE [facility] ([facility]) Jun 28, 2022 01:00 PM AMBULATORY - MEDICINE [facility] Jul 02, 2022 11:00 AM AMBULATORY - PSYCHIATRY [facility]) Jul 25, 2022 09:45 AM AMBULATORY - MEDICINE [facility] ([facility]) Active, Pending, and Scheduled Orders This section includes a listing of several types of active, pending, and scheduled orders, including clinic medications orders, diagnostic test orders, procedure orders and consult orders; where the start date of the order is 45 days before the date of the Encounter or 45 days after the date of the Encounter. The data comes from all [facility]. Test Date/Time Test Type Test Details Facility Name Apr 26, 2022 04:20 AM Consult Order UROLOGY OUTPT Cons [facility] Apr 30, 2022 12:23 PM Laboratory - Chemistry .CYTO PRINT CHART R [place] ([facility]) Order COPY-LABEL SPECIMEN OTHER SP ONCE [...] Reference Range Comment Apr 30, 2022 12:47 [facility] ([facility]) BASIC METABOLIC Specimen Ty pe: PLASMA PM PANEL+MG No comment enter ed. Ordering Provid er: EVANS AGUILAR Report Released Date/Time: Apr 30, 2022 12:31 PM Reporting Lab: [facility] [id number] Performing Lab: [facility] [id number] CREATININE 1.1 0.7-1.2 UREA NITROGEN 16 8-26 GLUCOSE 92 70-100 SODIUM 136 136-145 POTASSIUM 4.1 3.5-5.1 CHLORIDE 102 98-107 CO2 26 22-29 CALCIUM 10.3 H 8.4-10.2 MAGNESIUM 2.0 1.6-2.6 ANION GAP 8 5-15 CREAT EGFR(CKD-EPI) 70 >60 Apr 30, 2022 12:47 PM [facility]) CBC Specimen Type: BLOOD No comment enter ed. Ordering Provid er: EVANS AGUILAR Report Released Date/Time: Apr 30, 2022 12:31 PM Reporting Lab: [facility] [id number] Performing Lab: [facility] [id number] WBC 5.36 4.0-11.0 RBC 3.84 L 4.6-6.2 HGB 13.3 L 13.5-17.9 HCT 39.5 L 41-54 MCV 102.9 H 80-100 MCH 34.6 H 27-33 MCHC 33.7 32.0-37.5 PLT 291 150-400 MPV 9.9 7.4-10.4 RDW 14.0 11.5-14.5 Apr 26, 2022 03:24 AM [facility] URINALYSIS Specim en Type: URINE No comment enter ed. Ordering Provid er: SYLVIE BONDS Report Released Date/Time: Apr 26, 2022 03:38 AM Reporting Lab: [facility] [id number] Performing Lab: [facility] [id number] URINE COLOR COLORLESS SPECIFIC GRAVITY 1.007 1.003-1.035 [...] ADVANCE DIRECTIVE DISCUSSION [facility] Pathology Reports: +/- 30 days of [...] the Encounter. The data comes from all [place] treatment facilities. Date/Time Pathology Report Provider Source May 02, 2022 10:49 AM LR CYTOPATHOLOGY REPORT: DEVIN FRIED [facility] LOCAL TITLE: LR CYTOPATHOLOGY REPORT JENNIFER STANDARD TITLE: PATHOLOGY REPORT DATE OF NOTE: MAY 02, 2022@10:49:51 ENTRY DATE: MAY 02, 2022@10:49:51 AUTHOR: DEVIN FRIED EXP COSIGNER: URGENCY: STATUS: COMPLETED $APHDR Reporting Lab: [facility] [CLIA# [id number]] [place] [address] - - - - - - - [...] 2022@10:49 Performing Laboratory: Cytology Report Performed By: [facility] [CLIA# [id number]] [place] [address] $FTR - - - - - - [...] - - SHAWNA IBARRA STANDARD FORM 515 ID:[id number] SEX:M :1945 AGE: 76 LOC: [id number] PCP: Evans Aguilar MD /catia/ DEVIN FRIED STAFF PATHOLOGIST, PATHOLOGY & LABORATORY MED SV C Signed: 05/02/2022 10:49 Apr 26, 2022 03:24 AM LR MICROBIOLOGY REPORT: AVA BROWN [facility] Reporting Lab: [facility] [CLIA# [id number]] [place] [address] Accession [UID]: [id number] [[id number]] Receiv ed: Apr 26, 2022@04:20 Collection sample: URINE Collection date: Mar 03:24 Provider: SYLVIE BONDS Comment on specimen: RECEIVED IN STERILE CUP Test(s) ordered: CULTURE & SUSCEPTIBILITY...... completed: Apr 27, 2022 * BACTERIOLOGY FINAL REPORT => Apr 27, 2022 11:0 6 TECH CODE: [id number] CULTURE RESULTS: NO GROWTH 24 HOURS Bacteriology Remark(s): THIS REPORT IS FINAL =--=--=--=--=--=--=--=--=--=--=--=--=--= --=--=--=--=--=--=--=--=--=--=--=--=-- Performing Laboratory: Bacteriology Report Performed By: [facility] [CLIA# [id number]] [place] [address] Encounter Notes: All associated encounter notes This section contains the clinical notes associated to the Encounter. Date/Time Encounter Note(s) Provider Source Apr 25, 2022 01:38 PM NONVA NOTE: SYLVIE BAPTISTE IS [facility] TITLE: HOSPITALIZATION PRIVATE NONVA NOTE STANDARD TITLE: NONVA NOTE DATE OF NOTE: APR 25, 2022@13:38 ENTRY DATE: APR 30, 2022@13:39:02 AUTHOR: SYLVIE BAPTISTE EXP COSIGNER: URGENCY: STATUS: COMPLETED This note contains attached HOSPITALIZATION PRIV ATE scanned document(s) received from an outside facility. [facility] to review the documen t(s). /catia/ SYLVIE BAPTISTE Airplane Mechanic Signed: 04/30/2022 13:39 Apr 21, 2022 01:34 PM NONVA NOTE: SYLVIE BAPTISTE IS [facility] TITLE: LABORATORY NONVA NOTE STANDARD TITLE: NONVA NOTE DATE OF NOTE: APR 21, 2022@13:34 ENTRY DATE: APR 30, 2022@13:34:41 AUTHOR: SYLVIE BAPTISTE EXP COSIGNER: URGENCY: STATUS: COMPLETED This note contains attached LABORATORY scanned d ocument(s) received from an outside facility. [facility] to review the documen t(s). /catia/ SYLVIE BAPTISTE Airplane Mechanic Signed: 04/30/2022 13:34
--- OUTSIDE RECORDS SUMMARY | 2022-05-26 08:33 | XMS_ITS | Encounter Summary ---
:1945 Author Organization [facility] Address [address] [place] [id number] Support Name Relationship Address Phone TERRELL FORD [...] Number Chen BLUELINK COMPREHEN MAXI Jul 28, [id number] [phone] JAZMIN EPAPOU PATIENT TPA SIVE E-O [phone] L [facility] EXPRESS PRESCRIPT MAXI Jul 28, KEERTHI [id number] [phone] MARIELOS IBARRA PATIENT SCRIPTS - ION E O [phone] L SUBROGATIO TURKE N Y [employer] MCR MEDICARE MCR Jul 28, [id number] [phone] KLU DELMERMARIELOS PATIENT (WNR) ADVANTAGE (WNR) 2013 1 [phone] 8 L [employer] MCR MEDICARE MCR Jul 28, [id number] [phone] KLU DELMERMARIELOS PATIENT (WNR) ADVANTAGE (WNR) 2013 1 89 2 L [employer] MCR MEDICARE MCR Jul 28, [id number] KLU DELMERMARIELOS PATIENT (WNR) ADVANTAGE (WNR) 2013 1 [phone] 0 L Selected Encounter This section includes the information on record at [place] for the Encounter. Date/Time Encounter Type Encounter Reason Provider Source Description Apr 30, 2022 IMMUNIZATION GENERAL INTERNAL ICD-10-CM Z23 LEIGHTON QUIJANO 12:03 PM ADMIN MEDICINE Encounter for immunization with Provider Comments: Encounter for Immunization IHE Encounter Template Text not used by [facility] Assessments - Encounter Diagnoses This section includes the primary and secondary diagnoses documented for the Encounter. Date/Time Primary/Secondary Diagnosis Name Provider Source Diagnosis Apr 30, 2022 PRIMARY Encounter for LEIGHTON QUIJANO [facility] 12:04 PM immunization ([facility]) Plan of Treatment: Future Appointments (+ 6 months) and Future Tests (+/- 45 days) The Plan of Treatment section includes future care activities for the [facility] [place] [facility] This section includes future appointments and future orders which are active, pending orscheduled.Future Appointments This section includes appointments that were scheduled to occur 6 months from the date of the Encounter, up to a maximum of 20 appointments. The data comes from all [place] treatment [facility]. Appointment Date/Time Appointment Type Appointment Facili ty Name May 09, 2022 07:44 AM AMBULATORY - MEDICINE [facility] May 28, 2022 10:00 AM AMBULATORY - SURGERY [facility] S Jun 25, 2022 09:30 AM AMBULATORY - NONE [facility] ([facility]) Jun 28, 2022 01:00 PM AMBULATORY - MEDICINE [facility] Jul 02, 2022 11:00 AM AMBULATORY - PSYCHIATRY [facility] ([facility]) Jul 25, 2022 09:45 AM AMBULATORY - MEDICINE [facility] ([facility]) Active, Pending, and Scheduled Orders This section includes a listing of several types of active, pending, and scheduled orders, including clinic medications orders, diagnostic test orders, procedure orders and consult orders; where the start date of the order is 45 days before the date of the Encounter or 45 days after the date of the Encounter. The data comes from all [place] treatment [facility]. Test Date/Time Test Type Test Details Facility Name Apr 26, 2022 04:20 AM Consult Order UROLOGY OUTPT Cons [place] [facility] Acquisition Editor's Choice Apr 30, 2022 12:23 PM Laboratory - Chemistry .CYTO PRINT CHART R [place] (CB) Order COPY-LABEL SPECIMEN OTHER SP ONCE Lab Results: +/- 30 days of the encounter This section includes the Chemistry and Hematology Lab Results on record with [place] for the patient. Radiology Reports and Pathology Reports are provided separately, in subsequent sections.Lab Results This section contains the Chemistry/Hematology Results that were resulted 30 days before or 30 daysafter the date of the Encounter. Date/Time Source Result Type Result - Unit Interpretation Reference Range Comment Apr 30, 2022 12:47 PM [facility] (OC) CBC Specimen Type: BLOOD No comment enter ed. Ordering Provid er: EVANS AGUILRA Report Released Date/Time: Apr 30, 2022 12:31 PM Reporting Lab: [facility] [id number] Performing Lab: [facility] [id number] WBC 5.36 4.0-11.0 RBC 3.84 L 4.6-6.2 HGB 13.3 L 13.5-17.9 HCT 39.5 L 41-54 MCV 102.9 H 80-100 MCH 34.6 H 27-33 MCHC 33.7 32.0-37.5 PLT 291 150-400 MPV 9.9 7.4-10.4 RDW 14.0 11.5-14.5 Apr 30, 2022 12:47 [facility] ([facility]) BASIC METABOLIC Specimen Ty pe: PLASMA PM PANEL+MG No comment enter ed. Ordering Provid er: EVANS AGUILAR Report Released Date/Time: Apr 30, 2022 12:31 PM Reporting Lab: [facility] [id number] Performing Lab: [facility] [id number] CREATININE 1.1 0.7-1.2 UREA NITROGEN 16 8-26 GLUCOSE 92 70-100 SODIUM 136 136-145 POTASSIUM 4.1 3.5-5.1 CHLORIDE 102 98-107 CO2 26 22-29 CALCIUM 10.3 H 8.4-10.2 MAGNESIUM 2.0 1.6-2.6 ANION GAP 8 5-15 CREAT EGFR(CKD-EPI) 70 >60 Apr 26, 2022 03:24 AM [facility] URINALYSIS Specim en Type: URINE No comment enter ed. Ordering Provid er: SYLVIE BONDS Report Released Date/Time: Apr 26, 2022 03:38 AM Reporting Lab: [facility] [phone] Performing Lab: [facility] [phone] URINE COLOR COLORLESS SPECIFIC GRAVITY 1.007 1.003-1.035 [...] dy Source Pressure Rate Mass Index Apr 30, 141/63 [facility] 2021 12:02 mm[Hg] ER PM ([facility]) Apr 30 54 159/70 [facility] 2021 11:59 /min mm[Hg] ER AM ([facility]) Apr 30, 97.5 F 50 184/78 16 /min 97 % 0 176.2 26 ROC[facility]2021 11:58 /min mm[Hg] lb ER AM ([facility]) Immunizations: All administered on the encounter date This section contains immunizations associated to the Encounter. Immunization Series Date Issued Reaction Comments COVID-19, MRNA, LNP-S, BIVALENT 1 Apr 30, 2022 PFR; [id number]; 01/24/2023 BOOSTER, PF, 30 MCG/0.3 ML DOSE Social History: Smoking Status (Most current) and Tobacco Use (All prior to encounter date) This section includes the most current, and the historical, smoking and tobacco-related health factors from the [place] facility where the Encounter took place.Current Smoking Status This section includes the most current smoking, or tobacco-related health factor, from the [place] facility where the Encounter took place. Date/Time Current Smoking Status Comment Facility Jul 26, 2021 10:15 AM VA-TOBACCO FORMER USER GEENA COSME ([facility]) Tobacco Use History This section includes a history of the smoking, or tobacco- related health factors, that were collected on or before the date of the Encounter. The data comes from the [place] facility where the Encounter took place. Date/Time Smoking Status/Tobacco Use Comment [facility] Jul 26, 2021 10:15 AM VA-TOBACCO QUIT 15 YRS OR MORE [facility] ([facility]) Jul 18, 2020 01:45 PM VA-TOBACCO FORMER USER GEE[facility] COSME ([facility]) Jul 18, 2020 01:45 PM VA-TOBACCO QUIT 15 YRS OR MORE [facility] ([facility]) Oct 20, 2018 09:43 AM VA-TOBACCO FORMER USER [facility] ([facility]) Oct 20, 2018 09:43 AM VA-TOBACCO QUIT 15 YRS OR MORE [facility] ([facility]) Aug 29, 2017 10:26 AM FORMER TOBACCO USER 7Y OR GREATER [facility] ([facility]) Mar 18, 2016 10:08 AM FORMER TOBACCO USER 7Y OR GREATER [facility] ([facility]) Jun 06, 2015 12:30 PM FORMER TOBACCO USER 7Y OR GREATER [facility] ([facility]) Apr 08, 2014 09:02 AM FORMER TOBACCO USER 7Y OR GREATER [facility] ([facility]) Advance Directives: All historical and current Section Date Range: From patient's date of to the date document was created. This section includes ALL of a patient's completed or amended [place] Advance and Rescinded Directives. The entries below indicate that a directive exists for the patient, but an actual copy is not included with this document. The data comes from all [place] facilities. Date Advance Directives Provider Source Mar 12, 2019 ADVANCE DIRECTIVE KIARA BRANDT [facility] Mar 12, 2019 ADVANCE DIRECTIVE DISCUSSION KIARA BRANDT [facility] Pathology Reports: +/- 30 days of [...] the Encounter. The data comes from all [place] treatment facilities. Date/Time Pathology Report Provider Source May 02, 2022 10:49 AM LR CYTOPATHOLOGY REPORT: DEVIN FRIED [facility] LOCAL TITLE: LR CYTOPATHOLOGY REPORT JENNIFER STANDARD TITLE: PATHOLOGY REPORT DATE OF NOTE: MAY 02, 2022@10:49:51 ENTRY DATE: MAY 02, 2022@10:49:51 AUTHOR: DEVIN FRIED COSIGNER: URGENCY: STATUS: COMPLETED $APHDR Reporting Lab: [facility] [CLIA# [id number]] [place] [address] - - - - - - - [...] - - - - [facility] Description: Voided urine; 100 mL clear pale yellow fluid re ceived. One ThinPrep slide prepared. Microscopic: Microscopic examination performed. RS Diagnosis: Urine, cytology -- - NEGATIVE FOR HIGH-GRADE UROTHELIAL CARCINOMA /catia/ DEVIN FRIED STAFF PATHOLOGIST, PATHOLOGY & LABORATORY MED C Signed May 02, 2022@10:49 Performing Laboratory: Cytology Report Performed By: [facility] [CLIA# [id number]] [place] [address] $FTR - - - - - - [...] - - SHAWNA IBARRA STANDARD FORM 515 ID:[id number] SEX:M :1945 AGE: 76 LOC: [id number] PCP: Evans Aguilar MD /catia/ DEVIN FRIED STAFF PATHOLOGIST, PATHOLOGY & LABORATORY MED C Signed: 05/02/2022 10:49 Apr 26, 2022 03:24 AM LR [facility]: [facility] Reporting Lab: [facility] [CLIA# [id number]] [place] [address] Accession [UID]: [id number] [[id number]] Receiv ed: Apr 26, 2022@04:20 Collection sample: URINE Collection date: Mar 03:24 Provider: SYLVIE BONDS Comment on specimen: RECEIVED IN STERILE CUP Test(s) ordered: CULTURE & SUSCEPTIBILITY...... completed: Apr 27, 2022 * BACTERIOLOGY FINAL REPORT => Apr 27, 2022 11:0 6 TECH CODE: [id number] CULTURE RESULTS: NO GROWTH 24 HOURS Bacteriology Remark(s): THIS REPORT IS FINAL =--=--=--=--=--=--=--=--=--=--=--=--=--= --=--=--=--=--=--=--=--=--=--=--=--=-- Performing Laboratory: Bacteriology Report Performed By: [facility] [CLIA# [id number]] [address] [place] [address] Encounter Notes: All associated encounter notes This section contains the clinical notes associated to the Encounter. Date/Time Encounter Note(s) Provider Source Apr 30, 2022 12:03 PM NURSING IMMUNIZATION NOTE: LEIGHTON QUIJANO ([facility]) LOCAL TITLE: INAE NSG COVID-19 VACCINE ADMINIS TRATION STANDARD TITLE: NURSING IMMUNIZATION NOTE DATE OF NOTE: APR 30, 2022@12:03 ENTRY DATE: APR 30, 2022@12:03:59 AUTHOR: LEIGHTON QUIJANO EXP COSIGNER: URGENCY: STATUS: COMPLETED Pfizer Bivalent The patient was given the EUA Fact Sheet for thi s vaccine which lists the benefits and side effects of the vaccine and [facility] reviews the risks of the vaccine. The fact sheet was reviewed with the papo mast andthey were given an opportunity to ask questions. The patient denied any prior severe reaction to this vaccine or its components or a severe aller gic reaction such as anaphylaxis to any vaccine or to any injectable therapy. The patient gave verbal consent to receive the vaccine. The patient received Pfizer COVID-19 Vaccine, Bi valent 0.3ml IM. MVX (Manuf); Lot#; Exp Date: PFR; [id number]; 01/24 Administration Anatomic site: Left Deltoid Vaccine administered without complications. The patient was advised to remain in the facility for 15 minutes post vaccination. The patient was given a completed COVID-19 vaccination record card,a sonoscope operator y of the [place] Side Effects and Adverse Events Reporting Fac t Sheet and instructed on how to report any adverse reactions. /catia/ LEIGHTON Rajput [facility] EQUALIZING SAW OPERATOR Signed: 04/30/2022 12:04
--- OUTSIDE RECORDS SUMMARY | 2022-05-26 08:33 | XMS_ITS | Encounter Summary ---
:1945 Author Organization [facility] rs Address [address] [place] [id number] Support Name Relationship Address Phone LILIANA TERRELL [...] Number Chen BLUELINK COMPREHEN MAXI Jul 28, [id number] [phone] JAZMIN ELAURENCEU PATIENT TPA SIVE E-O [phone] L MAJOR [facility] EXPRESS PRESCRIPT MAXI Jul 28, KEERTHI [id number] [phone] MARIELOS IBARRA PATIENT SCRIPTS - ION E O 2005 [id number] L SUBROGATIO TURKE N Y HUMANA MCR MEDICARE MCR Jul 28, [id number] [phone] KLViraj DOWELLMARIELOS PATIENT (WNR) ADVANTAGE (WNR) 2013 1 89 8 L HUMANA MCR MEDICARE MCR Jul 28, [id number] [phone] KLU DELMERMARIELOS PATIENT (WNR) ADVANTAGE (WNR) 2013 1 89 0 L HUMANA MCR MEDICARE MCR Jul 28, [id number] [phone] KLU DELMERMARIELOS PATIENT (WNR) ADVANTAGE (WNR) 2013 1 89 2 L Selected Encounter This section includes the information on record at [place] for the Encounter. Date/Time Encounter Type Encounter Reason Provider Source Description Apr 30, 2022 OFFICE O/P EST PRIMARY ICD-10-CM R31.0 EVANS AGUILAR 12:15 PM LOW 20-29 MIN CARE/MEDICINE Gross hematuria SHAR with Provider Comments: Gross Hematuria IHE Encounter Template Text not used by [place] Assessments - Encounter Diagnoses This section includes the primary and secondary diagnoses documented for the Encounter. 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 The data comes from all [facility]. Appointment Date/Time Appointment Type Appointment Facili ty Name May 09, 2022 07:44 AM AMBULATORY - MEDICINE [facility] May 28, 2022 10:00 AM AMBULATORY - SURGERY [facility] Jun 25, 2022 09:30 AM AMBULATORY - NONE [place] ([facility]) Jun 28, 2022 01:00 PM AMBULATORY - MEDICINE [facility] Jul 02, 2022 11:00 AM AMBULATORY - PSYCHIATRY [place] ([facility]) Jul 25, 2022 09:45 AM AMBULATORY - MEDICINE [place] ([facility]) Active, Pending, and Scheduled Orders This section includes a listing of several types of active, pending, and scheduled orders, including clinic medications orders, diagnostic test orders, procedure orders and consult orders; where the start date of the order is 45 days before the date of the Encounter or 45 days after the date of the Encounter. The data comes from all [place] treatment [facility]. 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 Ordering Provid er: EVANS AGUILAR Report Released Date/Time: Apr 30, 2022 12:31 PM Reporting Lab: [facility] [address] [facility] [id number] Performing Lab[facility] [address] WBC 5.36 4.0-11.0 RBC 3.84 L 4.6-6.2 HGB 13.3 L 13.5-17.9 HCT 39.5 L 41-54 MCV 102.9 H 80-100 MCH 34.6 H 27-33 MCHC 33.7 32.0-37.5 PLT 291 150-400 MPV 9.9 7.4-10.4 RDW 14.0 11.5-14.5 Apr 30, 2022 12:47 [place] ([facility]) BASIC METABOLIC Specimen Ty pe: PLASMA PM PANEL+MG No comment enter ed. Ordering Provid er: EVANS AGUILAR Report Released Date/Time: Apr 30, 2022 12:31 PM Reporting Lab: [facility] [address] [facility] [address] Performing Lab: [facility] [address] [facility] [address] CREATININE 1.1 0.7-1.2 UREA NITROGEN 16 8-26 GLUCOSE 92 70-100 SODIUM 136 136-145 POTASSIUM 4.1 3.5-5.1 CHLORIDE 102 98-107 CO2 26 22-29 CALCIUM 10.3 H 8.4-10.2 MAGNESIUM 2.0 1.6-2.6 ANION GAP 8 5-15 CREAT EGFR(CKD-EPI) 70 >60 Apr 26, 2022 03:24 AM [facility] URINALYSIS Specim en Type: URINE No comment enter ed. Ordering Provid er: SYLVIE BONDS Report Released Date/Time: Apr 26, 2022 03:38 AM Reporting Lab: [facility] [address] [place] [facility] [address] Performing Lab: [facility] [address] [facility] [address] URINE COLOR COLORLESS SPECIFIC GRAVITY 1.007 1.003-1.035 [...] Pressure Rate Mass Index Apr 30, 141/63 [facility] 12:02 mm[Hg] ER PM ([facility]) Apr 30 54 159/70 [facility] 2021 11:59 /min mm[Hg] ER AM ([facility]) Apr 30, 97.5 F 50 184/78 16 /min 97 % 0 176.2 26 [facility]2021 11:58 /min mm[Hg] lb ER AM ([facility]) Social History: Smoking Status (Most current) and Tobacco Use (All prior to encounter date) This section includes the most current, and the historical, smoking and tobacco-related health factors from the [place] facility where the Encounter took place.Current Smoking Status This section includes the most current smoking, or tobacco-related health factor, from the [place] facility where the Encounter took place. Date/Time Current Smoking Status Comment Facility Jul 26, 2021 10:15 AM VA-TOBACCO FORMER USER [facility] ([facility]) Tobacco Use History This section includes a history of the smoking, or tobacco- related health factors, that were collected on or before the date of the Encounter. The data comes from the [place] facility where the Encounter took place. Date/Time Smoking Status/Tobacco Use Comment [facility] Jul 26, 2021 10:15 AM VA-TOBACCO QUIT 15 YRS OR MORE [place] ([facility]) Jul 18, 2020 01:45 PM VA-TOBACCO FORMER USER [facility] ([facility]) Jul 18, 2020 01:45 PM VA-TOBACCO QUIT 15 YRS OR MORE [place] ([facility]) Oct 20, 2018 09:43 AM VA-TOBACCO FORMER USER [facility] ([facility]) Oct 20, 2018 09:43 AM VA-TOBACCO QUIT 15 YRS OR MORE [place] ([facility]) Aug 29, 2017 10:26 AM FORMER TOBACCO USER 7Y OR GREATER [place] ([facility]) Mar 18, 2016 10:08 AM FORMER TOBACCO USER 7Y OR GREATER [place] ([facility]) Jun 06, 2015 12:30 PM FORMER TOBACCO USER 7Y OR GREATER [facility] ([facility]) Apr 08, 2014 09:02 AM FORMER TOBACCO USER 7Y OR GREATER [place] ([facility]) Advance Directives: All historical and current [...] Mar 12, 2019 ADVANCE DIRECTIVE KIARA BRANDT [facility] Mar 12, 2019 ADVANCE DIRECTIVE DISCUSSION KIARA BRANDT [facility] Pathology Reports: +/- 30 days of the [...] the Encounter. The data comes from all [place] treatment facilities. Date/Time Pathology Report Provider Source May 02, 2022 10:49 AM LR CYTOPATHOLOGY RE[facility] LOCAL TITLE: LR CYTOPATHOLOGY REPORT JENNIFER STANDARD TITLE: PATHOLOGY REPORT DATE OF NOTE: MAY 02, 2022@10:49:51 ENTRY DATE: MAY 02, 2022@10:49:51 AUTHOR: DEIVN FRIED COSIGNER: URGENCY: STATUS: COMPLETED $APHDR Reporting Lab: [facility] [CLIA# [id number]] [place] [address] - - - - - - - [...] - - - - Screened by: [facility] Description: Voided urine; 100 mL clear pale yellow fluid re ceived. One ThinPrep slide prepared. Microscopic: Microscopic examination performed. RS Diagnosis: Urine, cytology -- - NEGATIVE FOR HIGH-GRADE UROTHELIAL CARCINOMA /catia/ DEVIN FRIED STAFF PATHOLOGIST, PATHOLOGY & LABORATORY MED C Signed May 02, 2022@10:49 Performing Laboratory: Cytology Report Performed By: [facility] [CLIA# [id number]] [place] [address] $FTR - - - - - - [...] - - - - - - - JUAN IBARRA STANDARD FORM 515 ID:[id number] SEX:M :1945 AGE: 76 LOC: [id number] PCP: Evans Aguilar MD /catia/ DEVIN FRIED STAFF PATHOLOGIST, PATHOLOGY & LABORATORY MED C Signed: 05/02/2022 10:49 Apr 26, 2022 03:24 AM LR MICROBIOLOGY REPORT: ID [place] [facility] Reporting Lab: [facility] [CLIA# [id number]] [place] [address] Accession [UID]: [id number] [[id number]] Receiv ed: Apr 26, 2022@04:20 Collection sample: URINE Collection date: Mar 03:24 Provider: SYLVIE BONDS Comment on specimen: RECEIVED IN STERILE CUP Test(s) ordered: CULTURE & SUSCEPTIBILITY...... completed: Apr 27, 2022 * BACTERIOLOGY FINAL REPORT => Apr 27, 2022 11:0 6 TECH CODE: [id number] CULTURE RESULTS: NO GROWTH 24 HOURS Bacteriology Remark(s): THIS REPORT IS FINAL =--=--=--=--=--=--=--=--=--=--=--=--=--= --=--=--=--=--=--=--=--=--=--=--=--=-- Performing Laboratory: Bacteriology Report Performed By: [facility] [CLIA# [id number]] [address] [place] [address] Encounter Notes: All associated encounter notes This section contains the clinical notes associated to the Encounter. Date/Time Encounter Note(s) Provider Source May 02, 2022 11:41 AM REPORT OF CONTACT: EVANS AGUILAR ([facility]) LOCAL TITLE: PATIENT CONTACT JHON MYLES STANDARD TITLE: REPORT OF CONTACT DATE OF NOTE: MAY 02, 2022@11:41 ENTRY DATE: MAY 02, 2022@11:41:10 AUTHOR: EVANS AGUILAR EXP COSIGNER: URGENCY: STATUS: COMPLETED PATIENT CONTACT NOTE Has ADDENDA Patient contact Name of Patagonia: JOSSUEJUAN Name/Relationship of Contact if other than Veter an: Date & Time of Contact: Apr@11:41 Type of Contact: Telephone Reason for Contact: please call-urine cytology did not show any cancer cells, blood work about the same Disposition: Home self care /catia/ EVANS AGUILAR [facility] physician Signed: 05/02/2022 11:42 Receipt Acknowledged By: 05/10/2022 11:47 /GAYATHRI Harper LPN CBBHUPINDER 05/10/2022 ADDENDUM STATUS: COMPLETED Left detailed message on identified voicemail an d also sent secure message /sameer WOODS LPN LPN [place] Signed: 05/10/2022 11:48 Apr 30, 2022 01:05 PM PRIMARY CARE NOTE: EVANS AGUILAR ([facility]) LOCAL TITLE: [facility] PROGRESS NOTE-[facility] CAM STANDARD TITLE: PRIMARY CARE NOTE DATE OF NOTE: APR 30, 2022@13:05 ENTRY DATE: APR 30, 2022@13:05:37 AUTHOR: EVANS AGUILAR EXP COSIGNER: URGENCY: STATUS: COMPLETED Type of Visit:Juan Jossue is here for hospital fu . He presented to [facility] with gross hematuri a and difficulty voiding. Had CT scan that showed no stones, possible clots in bladder. No UTI found. He doesn't know what precipitated this. He had ejaculation wi th blood before. No vigorous exercise. He was treated with bladder irrigation. He was transferred to [facility] for urology consult, but no cysto was done. The bleeding improved and he went home. He developed recurrent hematuria a nd some difficulty voiding and went to [place] ER. The bleeding resolved while he was there and has not come back. Currently denies dysuria or bleeding. Does have some urinary frequency. No fever or chills. Reason for Visit: HPI: 76 years old MALE here for: Past Medical History: Active problems - Computerized Problem List is t he source for the followin. 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 Erectile dysfunction (SNOMED CT 034373771) 4. Ocular migraine 5. Iron deficiency anemia [...] HISTORY: He is . He lives in [place]. He quit smoking on 05/15/1983. He drinks 2-3 drinks before dinner, He does not use any illegal drugs. 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 He continues to walk several miles per day. Family History:his father and sister had heredit sushila hemorrhagic telangiectasis; father had stroke in his 50s. Hi s mother had atrial fibrillation and had stroke at age 90 Review of Systems: HEENT-negative Respiratory-negative Cardiac-no chest pain or palpitations. blood pre ssure has been running high Musculoskeletal-negative Neurologic-negative Psychiatric-feels stressed about this Physical Exam: Temp: 97.5 F [36.4 C] (04/30/2022 11:58) Pulse:54 (04/30/2022 11:59) BP: 141/63 (04/30/2022 12:02) Resp: 16 (04/30/2022 11:58) Weight: 176.2 lb [79.92 kg] (04/30/2022 11:58) Pain: 0 (04/30/2022:58) O2 Sat: 97% (04/30/2022 11:58) BMI: 26.3 General: AAOx3, NAD-multiple telangiectasias nos e, tongue. Normal male external genitalia, circumcised. Ketty ketty no lumps atrophic. No inguinal adenopathy. Has 6-7 cm left inguinal he rnia reducible HEENT: PERRL, EOMI, no scleral icterus, neck sup ple, CV: S1, S2, RRR, no m/r/g Lungs: CTAB, no crackles, no wheezing Abd: soft, NT/ND, +BS, no rebound, no guarding Extrem: no c/c/e Neuro: non focal Labs: - Complete Blood Count (red/white blood cell cou nts and platelets) White count: WBC 4.33 (02/15/22) (normal is 4.0 -11.0) Hemoglobin: HGB 13.2 L (02/15/22) (normal Male is 13.5-17.9) (normal Female is 11.5-16) Hematocrit: HCT 39.1 L (02/15/22) (normal Male is 41-54) (normal Female is 34.5-48) Platelets: PLT 270 (02/15/22) (normal is 150-40 0) - Electrolytes including sodium and potassium SODIUM 138 (02/15/22) (normal is 136-145) POTASSIUM 4.0 (02/15/22) (normal is 3.5-5.0) CHLORIDE 104 (02/15/22) (normal is 98-107) CO2 26 (02/15/22) (normal is 21-32) UREA NITROGEN 15 (02/15/22) (normal Male is 8-2 6) (normal Female = 10-20) CREATININE 1.1 (02/15/22) (normal Male is 0.7-1 .2) (normal Female is 0.5-1.0) GLUCOSE 96 (02/15/22) (normal is 70-100) CALCIUM 9.6 (02/15/22) (normal is 8.5-10.1) EGFR (02/28) 07/26/21 @ 1102 65 CREATININE EGFR (CKD-EPI) 02/15/22 @ 1000 70 (nor mal is >/=60) - Liver function Tests AST/SGOT 19 (02/15/22) (normal is 15-37) ALT/SGPT 13 (02/15/22) (normal is 13-61) BILIRUBIN, TOTAL 0.8 (02/15/22) (normal is 0.2- 1.0) - Cholesterol Tests (HDL = good and LDL = bad ) CHOLESTEROL 140 (07/26/21) (prefer less than 20 0) TRIGLYCERIDE____ (prefer less than 150) HDL 44 (07/26/21) (prefer more than 39) LDL CALCULATION 78 (07/26/21) (prefer less than 100) MEASURED LDL____ (prefer less than 100) - Glycosylated Hemoglobin (good diabetic control if less than 7.0) HEMOGLOBIN A1C____ (normal range is 4.0-6.0) POC HGB A1C____ Essential Medication List - reviewed with Yenny t/Caregiver FACILITY ALLERGY/ADR -------- [facility] CITALOPRAM [facility] SERTRALINE [facility] SYSTEM NO KNOWN ALLERGI ES Active Medications: + -+--------+--------+--------+--------+ Medication (Local) New Med Old Dose New Dose Discontd + -+--------+--------+--------+--------+ FINASTERIDE 5MG TAB Directions: TAKE ONE TABLET BY MOUTH EVERY DAY FOR PROSTATE Expires: 02/22/23 Status: ACTIVE + -+--------+--------+--------+--------+ HYDROCHLOROTHIAZIDE 25MG TAB Directions: TAKE ONE TABLET BY MOUTH EVERY DAY Expires: 01/25/23 Status: ACTIVE + -+--------+--------+--------+--------+ TAMSULOSIN HCL 0.4MG CAP Directions: TAKE TWO CAPSULES BY MOUTH EVERY DAY FOR PROSTATE, FOR BLADDER EMPTYING Expires: 07/27/22 Status: ACTIVE + -+--------+--------+--------+--------+ Non-VA Medications: + -+--------+--------+--------+--------+ Medication (Local) New Med Old Dose New Dose Discontd + -+--------+--------+--------+--------+ CHOLECALCIF 25MCG (D3-1,000UNIT) TAB Directions: 1000UNIT MOUTH EVERY DAY Status: ACTIVE + -+--------+--------+--------+--------+ NON VA MED NOT LISTED MISCELLANEOUS Directions: CALCIUM 1000 MG/PHOSPHORUS 500 MG/MAGNESIUM 500 MG - 1 TABLET EVERY DAY Status: ACTIVE + -+--------+--------+--------+--------+ Discontinued Medications (Past 90 days): + -+--------+--------+--------+--------+ Medication (Local) New Med Old Dose New Dose Discontd + -+--------+--------+--------+--------+ FINASTERIDE 5MG TAB X Directions: TAKE ONE TABLET BY MOUTH EVERY DAY FOR PROSTATE Status: DISCONTINUED + -+--------+--------+--------+--------+ Assessment/Plan: 1. Gross hematuria-may have internal telangiectasis which can lead to bleeding. Differential diagnosis inclu daquan bladder cancer. Will get urine cytology, urology consult. recheck hgb and renal functions 2. Hypertension-I asked him to monitor 2-3 times per week and let me know if it is still greater than 140/90. If it is, would add 2nd bp medications, probably lisinopril. 3. Hereditary hemorrhagic telangiectasias. - Vaccinations: IM - Immunizations Immunization Series Date Facility Reaction Info COVID-19 (PFIZER), MRNA, LNP-S, P* 3 04/26/2021 [place]* <C> 2 09/09/2020 [place] * <C> 1 08/19/2020 [place] * <C> COVID-19 (PFIZER), MRNA, LNP-S, P* 3 10/30/2021 [place] * <C> COVID-19, MRNA, LNP-S, BIVALENT B* 1 04/30/2022 [place] * <C> INFLUENZA, HIGH DOSE SEASONAL 07/30/2017 [facility] * 06/27/2016 [place] * 06/06/2015 [facility] * INFLUENZA, INJECTABLE, QUADRIVALE* 04/26/2021 [place]* 05/11/2020 [place] * INFLUENZA, SEASONAL, INJECTABLE,* 04/13/2019 [place]* 05/21/2018 [place] * INFLUENZA, UNSPECIFIED FORMULATIO* 08/31/2013 [facility] * PNEUMOCOCCAL CONJUGATE PCV 13 06/06/2015 [facility] * <C> PNEUMOCOCCAL, UNSPECIFIED FORMULA* 08/31/2013 [facility] * <C> TDAP 02/25/2013 [facility]* <C> ZOSTER LIVE 08/31/2013 [place] * <C> ZOSTER RECOMBINANT 2 11/23/2019 [place] * 1 07/15/2019 [place] * <C> See the Detailed Immunizations Health Summar y Component[DIM] for Comments RTC when due. Clinical Reminders: /catia/ EVANS AGUILAR [facility] physician Signed: 04/30/2022 13:23 Apr 30, 2022 11:58 AM PRIMARY CARE NURSING NOTE: LEIGHTON QUIJANO ([facility]) LOCAL TITLE: [facility] NURSING PROGRESS NOTE STANDARD TITLE: PRIMARY CARE NURSING NOTE DATE OF NOTE: APR 30, 2022@11:58 ENTRY DATE: APR 30, 2022@11:58:46 AUTHOR: LEIGHTON QUIJANO EXP COSIGNER: URGENCY: STATUS: COMPLETED TYPE OF VISIT: Appointment Check In Type of appointment: In-person appointment REASON FOR VISIT: Hosp follow up ALLERGIES: SERTRALINE (November 25, 2012) CITALOPRAM (Aug 31, 2013) VITAL SIGNS: Blood Pressure: 184/78 (04/30/2022 11:58) Pulse: 50 (04/30/2022 11:58) Respiration: 16 (04/30/2022 11:58) Temperature: 97.5 F [36.4 C] (04/30/2022 11:58) Weight: 176.2 lb [79.92 kg] (04/30/2022 11:58) Height: 68.75 in [174.6 cm] (07/26/2021 10:25) BMI: 26.3 O2 Sat: 97% (04/30/2022 11:58) Pain: 0 (04/30/2022 11:58) PAIN SCREEN: Patient is not having significant pain that the y wish to discuss with their provider today. /catia/ LEIGHTON Rajput [facility] MRI ASSISTANT Signed: 04/30/2022 11:59
--- OUTSIDE RECORDS SUMMARY | 2022-05-26 08:34 | XMS_ITS | Encounter Summary ---
:1945 Author Organization [facility] rs Address [address] [place] [address] Support Name Relationship Address Phone LILIANA TERRELL [...] Number Chen BLUELINK COMPREHEN MAXI Jul 28, [id number] [phone] JAZMIN ELAURENCEU PATIENT TPA SIVE E-O 2005 [id number] L [facility]OR [facility] STOR EXPRESS PRESCRIPT MAXI Jul 28, KEERTHI [id number] [phone] MARIELOS IBARRA PATIENT SCRIPTS - ION E O 2005 [id number] L SUBROGATIO TURKE N Y [employer] MCR MEDICARE MCR Jul 28, [id number] KLU DELMERMARIELOS PATIENT (WNR) ADVANTAGE (WNR) 2013 1 89 0 L [employer] MCR MEDICARE MCR Jul 28, [id number] [phone] KLU DELMERMARIELOS PATIENT (WNR) ADVANTAGE (WNR) 2014 1 89 8 L [employer] MCR MEDICARE MCR Jul 28, [id number] [phone] KLU GEMARIELOS PATIENT (WNR) ADVANTAGE (WNR) 2013 1 89 2 L Selected Encounter This section includes the information on record at NH for the Encounter. Date/Time Encounter Type Encounter Description Reason Provider Source Apr 25, 2022 12:00 Outpatient Encounter ADMIN PAT ACTIVTIES AM (NAVANONCT) IHE Encounter Template Text not used by NH Plan of Treatment: Future Appointments (+ 6 months) and Future Tests (+/- 45 days) The Plan of Treatment section includes future care activities for the patient [facility] This section includes future appointments and future orders which are active, pending orscheduled.Future Appointments This section includes appointments that were scheduled to occur 6 months from the date of the Encounter, up to a maximum of 20 appointments. The data comes from all [facility]. Appointment Date/Time Appointment Type Appointment Facili ty Name Apr 26, 2022 03:21 AM AMBULATORY - MEDICINE [facility] Apr 30, 2022 11:00 AM AMBULATORY - PSYCHIATRY [place] ([facility]) Apr 30, 2022 12:15 PM AMBUL[facility]ORY - MEDICINE [place] ([facility]) May 09, 2022 07:44 AM AMBULATORY - MEDICINE [facility] May 28, 2022 10:00 AM AMBULATORY - SURGERY [facility] Jun 25, 2022 09:30 AM AMBULATORY - NONE [place] ([facility]) Jun 28, 2022 01:00 PM AMBULATORY - MEDICINE [facility] Jul 02, 2022 11:00 AM AMBULATORY - PSYCHIATRY [place] ([facility]) Jul 25, 2022 09:45 AM AMBULATORY - MEDICINE [place] ([facility]) Active, Pending, and Scheduled Orders This section includes a listing of several types of active, pending, and scheduled orders, including clinic medications orders, diagnostic test orders, procedure orders and consult orders; where the start date of the order is 45 days before the date of the Encounter or 45 days after the date of the Encounter. The data comes from all [facility]. Test Date/Time Test Type Test Details Facility Name Apr 26, 2022 04:20 AM Consult Order [facility] Oscillograph Technician's Choice Apr 30, 2022 12:23 PM Laboratory - Chemistry .CYTO PRINT CHART R [place] ([facility]) Order COPY-LABEL SPECIMEN OTHER SP ONCE Lab Results: +/- 30 days of the encounter This section includes the Chemistry and Hematology Lab Results on record with NH for the patient. Radiology Reports and Pathology Reports are provided separately, in subsequent sections.Lab Results This section contains the Chemistry/Hematology Results that were resulted 30 days before or 30 daysafter the date of the Encounter. Date/Time Source Result Type Result - Unit Interpretation Reference Range Comment Apr 30, 2022 12:47 PM [place] ([facility]) CBC Specimen Type: BLOOD No comment enter ed. Ordering Provid er: EVANS AGUILAR Report Released Date/Time: Apr 30, 2022 12:31 PM Reporting Lab: [facility] TO[facility] [id number] Performing Lab: [facility] [address] WBC 5.36 4.0-11.0 RBC 3.84 L 4.6-6.2 HGB 13.3 L 13.5-17.9 HCT 39.5 L 41-54 MCV 102.9 H 80-100 MCH 34.6 H 27-33 MCHC 33.7 32.0-37.5 PLT 291 150-400 MPV 9.9 7.4-10.4 RDW 14.0 11.5-14.5 Apr 30, 2022 12:47 [place] ([facility]) BASIC METABOLIC Specimen Ty pe: PLASMA PM PANEL+MG No comment enter ed. Ordering Provid er: EVANS AGUILAR Report Released Date/Time: Apr 30, 2022 12:31 PM Reporting Lab: [facility] [address] Performing Lab: [facility] [id number] CREATININE 1.1 0.7-1.2 UREA NITROGEN 16 8-26 GLUCOSE 92 70-100 SODIUM 136 136-145 POTASSIUM 4.1 3.5-5.1 CHLORIDE 102 98-107 CO2 26 22-29 CALCIUM 10.3 H 8.4-10.2 MAGNESIUM 2.0 1.6-2.6 ANION GAP 8 5-15 CREAT EGFR(CKD-EPI) 70 >60 Apr 26, 2022 03:24 AM [facility] URINALYSIS Specim en Type: URINE No comment enter ed. Ordering Provid er: SYLVIE BONDS Report Released Date/Time: Apr 26, 2022 03:38 AM Reporting Lab: [facility] [id number] Performing Lab: [facility] [address] URINE COLOR COLORLESS SPECIFIC GRAVITY 1.007 1.003-1.035 [...] ALL of a patient's completed or amended NH Advance and Rescinded Directives. The entries below indicate that a directive exists for the patient, but an actual copy is not included with this document. The data comes from all NH facilities. Date Advance Directives Provider Source Mar 12, 2019 ADVANCE DIRECTIVE KIARA BRANDT [facility] Mar 12, 2019 ADVANCE DIRECTIVE DISCUSSION KIARA BRANDT [facility] Pathology Reports: +/- 30 days of [...] the Encounter. The data comes from all [place] treatment facilities. Date/Time Pathology Report Provider Source May 02, 2022 10:49 AM LR CYTOPATHOLOGY REPORT: DEVIN FRIED [facility] LOCAL TITLE: LR CYTOPATHOLOGY REPORT JENNIFER STANDARD TITLE: PATHOLOGY REPORT DATE OF NOTE: MAY 02, 2022@10:49:51 ENTRY DATE: MAY 02, 2022@10:49:51 AUTHOR: DEVIN FRIED EXP COSIGNER: URGENCY: STATUS: COMPLETED $APHDR Reporting Lab: [facility] [CLIA# [id number]] [place] [address] - - - - - - - [...] - - - - [facility] Description: Voided urine; 100 mL clear pale yellow fluid re ceived. One ThinPrep slide prepared. Microscopic: Microscopic examination performed. RS Diagnosis: Urine, cytology -- - NEGATIVE FOR HIGH-GRADE UROTHELIAL CARCINOMA /catia/ DEVIN FRIED STAFF PATHOLOGIST, PATHOLOGY & LABORATORY MED C Signed May 02, 2022@10:49 Performing Laboratory: Cytology Report Performed By: [facility] [CLIA# [id number]] [place] [address] $FTR - - - - - - [...] - - SHAWNA IBARRA STANDARD FORM 515 ID:[id number] SEX:M :1945 AGE: 76 LOC: 95834 PCP: Evans Aguilar MD /catia/ DEVIN FRIED STAFF PATHOLOGIST, PATHOLOGY & LABORATORY MED C Signed: 05/02/2022 10:49 Apr 26, 2022 03:24 AM LR MICROBIOLOGY REPORT: [facility] Reporting Lab: [facility] [CLIA# [id number]] [place] [address] Accession [UID]: [id number] [[id number]] Receiv ed: Apr 26, 2022@04:20 Collection sample: URINE Collection date: Mar 03:24 Provider: SYLVIE BONDS Comment on specimen: RECEIVED IN STERILE CUP Test(s) ordered: CULTURE & SUSCEPTIBILITY...... completed: Apr 27, 2022 * BACTERIOLOGY FINAL REPORT => Apr 27, 2022 11:0 6 TECH CODE: [id number] CULTURE RESULTS: NO GROWTH 24 HOURS Bacteriology Remark(s): THIS REPORT IS FINAL =--=--=--=--=--=--=--=--=--=--=--=--=--= --=--=--=--=--=--=--=--=--=--=--=--=-- Performing Laboratory: Bacteriology Report Performed By: [facility] [CLIA# [id number]] [address] [place] [address] Encounter Notes: All associated encounter notes This section contains the clinical notes associated to the Encounter. Date/Time Encounter Note(s) Provider Source Apr 25, 2022 12:00 AM NONVA NOTE: TWYLA HILL [facility] LOCAL TITLE: HOSPITALIZATION PRIVATE NONVA NOTE STANDARD TITLE: NONVA NOTE DATE OF NOTE: APR 25, 2022 ENTRY DATE: MAY 01 022@15:40:36 AUTHOR: TWYLA HILL EXP COSIGNER: URGENCY: STATUS: COMPLETED VistA Imaging - Scanned Document This note contains attached HOSPITALIZATION PRIV ATE scanned document(s) received from an outside facility. Open [employer] Display to review the documen t(s). /catia/ TWYLA HILL Staff Submarine Warfare Officer - HIT Signed: 05/01/2022 15:40
--- OUTSIDE RECORDS SUMMARY | 2022-05-26 08:34 | XMS_ITS | Encounter Summary ---
:1945 Author Organization [facility] rs Address [address] [place] [address] Support Name Relationship Address Phone LILIANA TERRELL [...] Number Chen BLUELINK COMPREHEN MAXI Jul 28, [id number] [phone] JAZMIN ELAURENCEU PATIENT TPA SIVE E-O 2005 0 [id number] L MAJOR [facility] STOR EXPRESS PRESCRIPT MAXI Jul 28, KEERTHI [id number] [phone] MARIELOS IBARRA PATIENT SCRIPTS - ION E O 2005 [id number] L SUBROGATIO TURKE N Y [employer] MCR MEDICARE MCR Jul 28, [id number] [phone] KLU DELMERMARIELOS PATIENT (WNR) ADVANTAGE (WNR) 2013 1 89 8 L [employer] MCR MEDICARE MCR Jul 28, [id number] [phone] KLU DELMERMARIELOS PATIENT (WNR) ADVANTAGE (WNR) 2013 1 89 2 L [employer] MCR MEDICARE MCR Jul 28, [id number] [phone] KLU GEMARIELOS PATIENT (WNR) ADVANTAGE (WNR) 2013 1 89 0 L Selected Encounter This section includes the information on record at [place] for the Encounter. Date/Time Encounter Type Encounter Description Reason Provider Source Apr 30, 2022 01:46 Outpatient Encounter ADMIN PAT ACTIVTIES PM (MASNONCT) IHE Encounter Template Text not used by [place] Plan of Treatment: Future Appointments (+ 6 months) and Future Tests (+/- 45 days) The Plan of Treatment section includes future care activities for the patient from all [place] [facility]. This section includes future appointments and future orders which are active, pending orscheduled.Future Appointments This section includes appointments that were scheduled to occur 6 months from the date of the Encounter, up to a maximum of 20 appointments. The data comes from all [facility]. Appointment Date/Time Appointment Type Appointment Facili ty Name May 09, 2022 07:44 AM AMBULATORY - MEDICINE [facility] May 28, 2022 10:00 AM AMBULATORY - SURGERY [facility] S Jun 25, 2022 09:30 AM AMBULATORY - NONE [place] ([facility]) Jun 28, 2022 01:00 PM AMBULATORY - MEDICINE [facility] Jul 02, 2022 11:00 AM AMBULATORY - PSYCHIATRY [place] ([facility]) Jul 25, 2022 09:45 AM AMBULATORY - MEDICINE [place] ([facility]) Active, Pending, and Scheduled Orders [...] 04:20 AM Consult Order UROLOGY OUTPT Cons [facility] Painter Chassis's Choice Apr 30, 2022 12:23 PM Laboratory - Chemistry .CYTO PRINT CHART R [place] ([facility]) Order COPY-LABEL SPECIMEN OTHER SP ONCE [...] Range Comment Apr 30, 2022 12:47 PM [place] ([facility]) CBC Specimen Type: BLOOD No comment enter ed. Ordering Provid er: EVANS AGUILAR Report Released Date/Time: Apr 30, 2022 12:31 PM Reporting Lab: [facility] TO[facility] [address] Performing Lab: [facility] [address] WBC 5.36 4.0-11.0 RBC 3.84 L 4.6-6.2 HGB 13.3 L 13.5-17.9 HCT 39.5 L 41-54 MCV 102.9 H 80-100 MCH 34.6 H 27-33 MCHC 33.7 32.0-37.5 PLT 291 150-400 MPV 9.9 7.4-10.4 RDW 14.0 11.5-14.5 Apr 30, 2022 12:47 [place] ([facility]) BASIC METABOLIC Specimen Ty pe: PLASMA PM PANEL+MG No comment enter ed. Ordering Provid er: EVANS AGUILAR Report Released Date/Time: Apr 30, 2022 12:31 PM Reporting Lab: [facility] [address] Performing Lab: [facility] [address] CREATININE 1.1 0.7-1.2 UREA NITROGEN 16 8-26 GLUCOSE 92 70-100 SODIUM 136 136-145 POTASSIUM 4.1 3.5-5.1 CHLORIDE 102 98-107 CO2 26 22-29 CALCIUM 10.3 H 8.4-10.2 MAGNESIUM 2.0 1.6-2.6 ANION GAP 8 5-15 CREAT EGFR(CKD-EPI) 70 >60 Apr 26, 2022 03:24 AM [facility] URINALYSIS Specim en Type: URINE No comment enter ed. Ordering Provid er: SYLVIE BONDS Report Released Date/Time: Apr 26, 2022 03:38 AM Reporting Lab: [facility] [address] Performing Lab: [facility] [address] URINE COLOR COLORLESS SPECIFIC GRAVITY 1.007 1.003-1.035 [...] Mar 12, 2019 ADVANCE DIRECTIVE KIARA BRANDT [facility] Mar 12, 2019 ADVANCE DIRECTIVE DISCUSSION KIARA BRANDT [facility] Pathology Reports: +/- 30 days of [...] 10:49 AM LR CYTOPATHOLOGY REPORT: [facility]IN [facility]ED [facility] LOCAL TITLE: LR CYTOPATHOLOGY REPORT JENNIFER STANDARD TITLE: PATHOLOGY REPORT DATE OF NOTE: MAY 02, 2022@10:49:51 ENTRY DATE: MAY 02, 2022@10:49:51 AUTHOR: DEVIN FRIED EXP COSIGNER: URGENCY: STATUS: COMPLETED $APHDR Reporting Lab: [facility] [CLIA# [id number]] [place] [address] - - - - - - - [...] - - - POSTOPERATIVE DIAGNOSIS: Surgeon/physician: EVANS AGUIALR MD =-=-=-=-=-=-=-=-=-=-=-=-=-=- =-=-=-=-=-=-=-=-=-=-=-=-=-=-=-=-=-=-=-=-=-=-=-=-=-= - - - - [...] 2022@10:49 Performing Laboratory: Cytology Report Performed By: [facility] [CLIA# [id number]] [place] [address] $FTR - - - - - - [...] - - SHAWNA IBARRA STANDARD FORM 515 ID:[id number] SEX:M :1945 AGE: 76 LOC: 10504 PCP: Evans Aguilar MD /catia/ DEVIN FRIED STAFF PATHOLOGIST, PATHOLOGY & LABORATORY MED SV C Signed: 05/02/2022 10:49 Apr 26, 2022 03:24 AM LR MICROBIOLOGY REPORT: [facility] Reporting Lab: [facility] [CLIA# [id number]] [place] [address] Accession [UID]: [id number] [[id number]] Receiv ed: Apr 26, 2022@04:20 Collection sample: URINE Collection date: Mar 03:24 Provider: SYLVIE BONDS Comment on specimen: RECEIVED IN STERILE CUP Test(s) ordered: CULTURE & SUSCEPTIBILITY...... completed: Apr 27, 2022 * BACTERIOLOGY FINAL REPORT => Apr 27, 2022 11:0 6 TECH CODE: [id number] CULTURE RESULTS: NO GROWTH 24 HOURS Bacteriology Remark(s): THIS REPORT IS FINAL =--=--=--=--=--=--=--=--=--=--=--=--=--= --=--=--=--=--=--=--=--=--=--=--=--=-- Performing Laboratory: Bacteriology Report Performed By: [facility] [CLIA# [id number]] [place] [address] Encounter Notes: All associated encounter notes This section contains the clinical notes associated to the Encounter. Date/Time Encounter Note(s) Provider Source Apr 23, 2022 01:46 PM NONVA NOTE: SYLVIE BAPTISTE IS [facility] LOCAL TITLE: HEMATOLOGY AND ONCOLOGY NONVA NOTE STANDARD TITLE: NONVA NOTE DATE OF NOTE: APR 23, 2022@13:46 ENTRY DATE: APR 30, 2022@13:47:14 AUTHOR: SYLVIE BAPTISTE EXP COSIGNER: URGENCY: STATUS: COMPLETED This note contains attached HEMATOLOGY AND/OR ON COLOGY scanned document(s) received from an outside facility. Open [employer] Imaging Display to review the documen t(s). /catia/ SYLVIE BAPTISTE Sales Analytics Manager Signed: 04/30/2022 13:47
--- OUTSIDE RECORDS SUMMARY | 2022-05-26 08:34 | XMS_ITS | Encounter Summary ---
:1945 Author Organization [facility] rs Address [address] [place] [address] Support Name Relationship Address Phone LILIANA TERRELL [...] Number Chen BLUELINK COMPREHEN MAXI Jul 28, [id number] [phone] JAZMIN ELAURENCEU PATIENT TPA SIVE E-O 2005 0 [id number] L MAJOR [facility] STOR EXPRESS PRESCRIPT MAXI Jul 28, KEERTHI [id number] [phone] MARIELOS IBARRA PATIENT SCRIPTS - ION E O 2004 [id number] L SUBROGATIO TURKE N Y HU[employer] MCR MEDICARE MCR Jul 28, [id number] [phone] KLU DELMERMARIELOS PATIENT (WNR) ADVANTAGE (WNR) 2013 1 89 8 L [employer] MCR MEDICARE MCR Jul 28, [id number] [phone] KLU DELMERMARIELOS PATIENT (WNR) ADVANTAGE (WNR) 2013 1 89 2 L [employer] MCR MEDICARE MCR Jul 28, [id number] KLU GEMARIELOS PATIENT (WNR) ADVANTAGE (WNR) 2013 1 89 0 L Selected Encounter This section includes the information on record at [place] for the Encounter. Date/Time Encounter Type Encounter Reason Provider Source Description Apr 30, 2022 PSYTX W PT 45 MH INTGRTD CARE ICD-10-CM F41.9 CHIROS,CHR ISTI 11:00 AM MINUTES IND Anxiety disorder, NE E unspecified with Provider Comments: Exposure to combat ([facility] [id number]) IHE Encounter Template Text not used by VA Assessments - Encounter Diagnoses This section includes the primary and secondary diagnoses documented for the Encounter. Date/Time Primary/Secondary Diagnosis Name Provider Source Diagnosis Apr 30, 2022 PRIMARY Anxiety disorder, TEJAS LINN R 08:52 PM unspecified NE E (CB) Plan of Treatment: Future Appointments (+ 6 months) and Future Tests (+/- 45 days) The Plan of Treatment section includes future care activities for the patient from all [place] [facility]. This section includes future appointments and future orders which are active, pending orscheduled.Future Appointments This section includes appointments that were scheduled to occur 6 months from the date of the Encounter, up to a maximum of 20 appointments. The data comes from all [facility]. Appointment Date/Time Appointment Type Appointment Facili ty Name May 09, 2022 07:44 AM AMBULATORY - MEDICINE [facility] May 28, 2022 10:00 AM AMBULATORY - SURGERY [facility] Jun 25, 2022 09:30 AM AMBULATORY - NONE [place] ([facility]) Jun 28, 2022 01:00 PM AMBULATORY - MEDICINE [facility] Jul 02, 2022 11:00 AM AMBULATORY - PSYCHIATRY [place] ([facility]) Jul 25, 2022 09:45 AM AMBULATORY - MEDICINE [place] ([facility]) Active, Pending, and Scheduled Orders This section includes a listing of several types of active, pending, and scheduled orders, including clinic medications orders, diagnostic test orders, procedure orders and consult orders; where the start date of the order is 45 days before the date of the Encounter or 45 days after the date of the Encounter. The data comes from all [facility]. Test Date/Time Test Type Test Details Facility Name Apr 26, 2022 04:20 AM Consult Order UROLOGY OUTPT Cons [place] [facility] Kindergarten Assistant's Choice Apr 30, 2022 12:23 PM Laboratory - Chemistry .CYTO PRINT CHART R [place] ([facility]) Order COPY-LABEL SPECIMEN OTHER SP ONCE Lab Results: +/- 30 days of the encounter This section includes the Chemistry and Hematology Lab Results on record with [facility] for the patient. Radiology Reports and Pathology Reports are provided separately, in subsequent sections.Lab Results This section contains the Chemistry/Hematology Results that were resulted 30 days before or 30 daysafter the date of the Encounter. Date/Time Source Result Type Result - Unit Interpretation Reference Range Comment Apr 30, 2022 12:47 [place] ([facility]) BASIC METABOLIC Specimen Ty pe: PLASMA PM PANEL+MG No comment enter ed. Ordering Provid er: EVANS AGUILAR Report Released Date/Time: Apr 30, 2022 12:31 PM Reporting Lab[facility] [address] Performing Lab: [facility] [address] CREATININE 1.1 0.7-1.2 UREA NITROGEN 16 8-26 GLUCOSE 92 70-100 SODIUM 136 136-145 POTASSIUM 4.1 3.5-5.1 CHLORIDE 102 98-107 CO2 26 22-29 CALCIUM 10.3 H 8.4-10.2 MAGNESIUM 2.0 1.6-2.6 ANION GAP 8 5-15 CREAT EGFR(CKD-EPI) 70 >60 Apr 30, 2022 12:47 PM [place] ([facility]) CBC Specimen Type: BLOOD No comment enter ed. Ordering Provid er: EVANS AGUILAR Report Released Date/Time: Apr 30, 2022 12:31 PM Reporting Lab: [facility] [address] Performing Lab: [facility] [address] WBC 5.36 4.0-11.0 RBC 3.84 L 4.6-6.2 HGB 13.3 L 13.5-17.9 HCT 39.5 L 41-54 MCV 102.9 H 80-100 MCH 34.6 H 27-33 MCHC 33.7 32.0-37.5 PLT 291 150-400 MPV 9.9 7.4-10.4 RDW 14.0 11.5-14.5 Apr 26, 2022 03:24 AM [facility] URINALYSIS Specim en Type: URINE No comment enter ed. Ordering Provid er: SYLVIE BONDS Report Released Date/Time: Apr 26, 2022 03:38 AM Reporting Lab: [facility] [address] Performing Lab: [facility] [address] URINE COLOR COLORLESS SPECIFIC GRAVITY 1.007 1.003-1.035 [...] smoking and tobacco-related health factors from the [place] facility where the Encounter took place.Current Smoking Status This section includes the most current smoking, or tobacco-related health factor, from the [place] facility where the Encounter took place. Date/Time Current Smoking Status Comment Facility Jul 26, 2021 10:15 AM VA-TOBACCO FORMER USER [facility] ([facility]) Tobacco Use History This section includes a history of the smoking, or tobacco- related health factors, that were collected on or before the date of the Encounter. The data comes from the [place] facility where the Encounter took place. Date/Time Smoking Status/Tobacco Use Comment [facility] Jul 26, 2021 10:15 AM VA-TOBACCO QUIT 15 YRS OR MORE [place] ([facility]) Jul 18, 2020 01:45 PM VA-TOBACCO FORMER USER [facility] ([facility]) Jul 18, 2020 01:45 PM VA-TOBACCO QUIT 15 YRS OR MORE [place] ([facility]) Oct 20, 2018 09:43 AM VA-TOBACCO FORMER USER [facility] ([facility]) Oct 20, 2018 09:43 AM VA-TOBACCO QUIT 15 YRS OR MORE [place] ([facility]) Aug 29, 2017 10:26 AM FORMER TOBACCO USER 7Y OR GREATER [place] ([facility]) Mar 18, 2016 10:08 AM FORMER TOBACCO USER 7Y OR GREATER [place] ([facility]) Jun 06, 2015 12:30 PM FORMER TOBACCO USER 7Y OR GREATER [place] ([facility]) Apr 08, 2014 09:02 AM FORMER TOBACCO USER 7Y OR GREATER [place] ([facility]) Advance Directives: All historical and current Section Date Range: From patient's date of to the date document was created. This section includes ALL of a patient's completed or amended [place] Advance and Rescinded Directives. The entries below indicate that a directive exists for the patient, but an actual copy is not included with this document. The data comes from all [place] facilities. Date Advance Directives Provider Source Mar 12, 2019 ADVANCE DIRECTIVE KIARA BRANDT [facility] Mar 12, 2019 ADVANCE DIRECTIVE DISCUSSION KIARA BRANDT [facility] Pathology Reports: +/- 30 days of [...] the Encounter. The data comes from all [place] treatment facilities. Date/Time Pathology Report Provider Source May 02, 2022 10:49 AM LR CYTOPATHOLOGY REPORT: DEVIN FRIED [facility] LOCAL TITLE: LR CYTOPATHOLOGY REPORT JENNIFER STANDARD TITLE: PATHOLOGY REPORT DATE OF NOTE: MAY 02, 2022@10:49:51 ENTRY DATE: MAY 02, 2022@10:49:51 AUTHOR: DEVIN FRIED EXP COSIGNER: URGENCY: STATUS: COMPLETED $APHDR Reporting Lab: [facility] [CLIA# [id number]] [place] [address] - - - - - - - [...] - - - Screened by: GIACOMO BOSE [facility] Description: Voided urine; 100 mL clear pale yellow fluid re ceived. One ThinPrep slide prepared. Microscopic: Microscopic examination performed. RS Diagnosis: Urine, cytology -- - NEGATIVE FOR HIGH-GRADE UROTHELIAL CARCINOMA /catia/ DEVIN FRIED STAFF PATHOLOGIST, PATHOLOGY & LABORATORY MED C Signed May 02, 2022@10:49 Performing Laboratory: Cytology Report Performed By: [facility] [CLIA# [id number]] [place] [address] $FTR - - - - - - [...] - - SHAWNA IBARRA STANDARD FORM 515 ID:[id number] SEX:M :1945 AGE: 76 LOC: 99023 PCP: Evans Aguilar MD /catia/ DEVIN FRIED STAFF PATHOLOGIST, PATHOLOGY & LABORATORY MED C Signed: 05/02/2022 10:49 Apr 26, 2022 03:24 AM LR MICROBIOLOGY REPORT: AVA [facility]OWN [facility] Reporting Lab: [facility] [CLIA# [id number]] [place] [address] Accession [UID]: [id number] [[id number]] Receiv ed: Apr 26, 2022@04:20 Collection sample: URINE Collection date: Mar 03:24 Provider: SYLVIE BONDS Comment on specimen: RECEIVED IN STERILE CUP Test(s) ordered: CULTURE & SUSCEPTIBILITY...... completed: Apr 27, 2022 * BACTERIOLOGY FINAL REPORT => Apr 27, 2022 11:0 6 TECH CODE: [id number] CULTURE RESULTS: NO GROWTH 24 HOURS Bacteriology Remark(s): THIS REPORT IS FINAL =--=--=--=--=--=--=--=--=--=--=--=--=--= --=--=--=--=--=--=--=--=--=--=--=--=-- Performing Laboratory: Bacteriology Report Performed By: [facility] [CLIA# [id number]] [address] [place] [address] Encounter Notes: All associated encounter notes This section contains the clinical notes associated to the Encounter. Date/Time Encounter Note(s) Provider Source Apr 30, 2022 11:00 AM MENTAL HEALTH NOTE: BREE LINN ([facility]) LOCAL TITLE: MH PROGRESS NOTE STANDARD TITLE: MENTAL HEALTH NOTE DATE OF NOTE: APR 30, 2022@11:00 ENTRY DATE: APR 30, 2022@20:48:15 AUTHOR: BREE LINN COSIGNER: URGENCY: STATUS: COMPLETED Individual Psychotherapy: 50 minutes face to fac e Informed consent: patient reviewed purpose of th erapy, privacy protections and limitations at his initial v isit with this jingle writer, as well as risks and benefits of treatment. He consented t o care face to face, and then vvc as well during the pandemic. No new questions at today's visit. S/O - Patient on time for session. Patient and p zora worked on patient's ongoing efforts to create space for his emotions , with some discussion today about health problems reminding him of his morta lity, efforts to connect with daughter (one good contact, and then no f/u from her) and considering ways to continue to focus on making life meaningful and fully participating even when concerns arise that get him overthinking. Handouts: none today Problem for which patient treated today: Exposure to combat ([facility] [id number]) - Anxiety dis order, unspecified (ICD-10-CM F41.9) (Primary) Mental Status: Mood: Euthymic Affect: Appropriate, Full-Range, tearful at time s when discussing service Speech: Normal rate, Normal rhythm, Normal volum e Thought Content: Normal Thought Processes: Logical, Goal Oriented Suicidality: Absent Homicidality: Absent Hallucinations: Absent Delusions: Absent Oriented: Fully Oriented Judgement: good Insight: good Risk Assessment: Risk Factors: male with psychiatric di agnosis. Protective Factors: absence of suicidal ideation and no history of suicidal behavior, strong social connections, future orie ntation, general life satisfaction, help seeking. Acute Risk: Low Chronic Risk: Low Progress Toward Goals: overall patient doing wel l, using skills with good effect P/ update to treatment plan - Continue individua l psychotherapy, f/u in early June /sameer LINN, PHD, DAVID PSYCHOLOGIST Signed: 02/27/2022 06:06 02/27/2022 ADDENDUM STATUS: [...] Consult sent requesting work-up for this. /catia/ BREE LINN, PHD, DAVID Psychology refrigeration supervisor and [facility] certified wellness program coordinator Signed: 04/30/2022 20:52 Apr 30, 2022 11:00 AM MENTAL HEALTH TREATMENT PLAN NOTE: BREE LINN ([facility]) LOCAL TITLE: TREATMENT PLAN STANDARD TITLE: MENTAL HEALTH TREATMENT PLAN NOT E DATE OF NOTE: APR 30, 2022@11:00 ENTRY DATE: APR 30, 2022@20:53:34 AUTHOR: BREE LINN EXP COSIGNER: URGENCY: STATUS: COMPLETED TREATMENT PLAN TYPE: Update MENTAL HEALTH TEAM ASSIGNMENT: [facility] MENTAL HEALTH OIL FIELD WORKER ([facility]): Jennifer Linn TEAM MEMBERS & OTHER COLLABORATORS CONTRIBUTING TO THE 'S CARE AND TREATMENT PLAN: PARTICIPATION IN TREATMENT PLANNING: Plan will be discussed with in next ses flor FAMILY INVOLVEMENT: No; does not desire family involvement DIAGNOSIS: Exposure to combat ([facility] [id number]) - Anxiety di sorder, unspecified (ICD-10- CM F41.9) (Primary) SUICIDE RISK ASSESSMENT: Acute low Chronic low Risk factors: older male with psychiatric diagnosis , exposure to combat, estrangement from adult children Protective Factors: good social support from friends, reality testi ng, future oriented, good coping skills, general life satisfaction Clinician judgement of risk: low IDENTIFIED PROBLEMS: patient has longstanding anxiety stemming from [place] deployment and childhood. STRENGTHS: insightful, works hard at what he does, high wi llingness BARRIERS: none noted GOAL #1: reduce interference of anxiety in daily life: c urrently maintaining this goal and has occasional f/u. INTERVENTION(S)/OBJECTIVE METHODS TO ACCOMPLISH GOAL #1: Individual Psychotherapy with: Bree Linn The therapist will assess symptoms at each visi t and provide psychoeducation regarding diagnoses and specific interventional strategies. The agrees to ask questions if they have concerns or do no t fully understand content or expectations of therapy. [place] will regularly attend appointments and complete agreed upon out-of- session assignments. The frequency of individual appointments will b e reassessed by the provider and with each appointment and documente d in the progress note. Clinician will provide information regarding av ailable [facility] MH treatment options. Overall MH treatment needs will be periodically assessed at visits. Durham will be encouraged to involve supportiv e people (e.g., family/friends) in their treatment as applicable. Durham will contact provider as needed for non emergent MH concerns between appointments; responsible staff will return con tact to in timely manner. will use emergency MH options a s agreed upon with provider (911, Emergency Department, [facility]). Different evidence-based treatment options were considered and discussed with as part of current treatment planning. ACT and compassion focused therapy will be util ized DATE OF NEXT TREATMENT PLAN REVIEW: April 30 Odalis /catia/ BREE LINN, PHD, Psychology refrigeration supervisor and [facility] certified wellness program coordinator Signed: 04/30/2022 20:55
--- OUTSIDE RECORDS SUMMARY | 2022-05-26 08:35 | XMS_ITS | Encounter Summary ---
:1945 Author Organization [facility] Address [address] [place] [address] Support Name Relationship Address Phone TERRELL FORD [...] Number Chen BLUELINK COMPREHEN MAXI Jul 28, [id number] [phone] JAZMIN ELAURENCEU PATIENT TPA SIVE E-O 2006 0 [id number] L MAJOR [facility] STOR EXPRESS PRESCRIPT MAXI Jul 28, KEERTHI [id number] [phone] MARIELOS IBARRA PATIENT SCRIPTS - ION E O 2005 [id number] L SUBROGATIO TURKE N Y [employer] MCR MEDICARE MCR Jul 28, [id number] [phone] KLU DELMERMARIELOS PATIENT (WNR) ADVANTAGE (WNR) 2013 1 89 8 L [employer] MCR MEDICARE MCR Jul 28, [id number] KLU DELMERMARIELOS PATIENT (WNR) ADVANTAGE (WNR) 2013 1 89 0 L [employer] MCR MEDICARE MCR Jul 28, [id number] [phone] KLU DELMERMARIELOS PATIENT (WNR) ADVANTAGE (WNR) 2013 1 89 2 L Selected Encounter This section includes the information on record at [place] for the Encounter. Date/Time Encounter Type Encounter Reason Provider Source Description May 02, 2022 10:49 Outpatient EVENT (HISTORICAL) Dylan FRIED AM Encounter JENNIFER MERCADO Encounter Template Text not used by [place] Plan of Treatment: Future Appointments (+ 6 months) and Future Tests (+/- 45 days) The Plan of Treatment section includes future care activities for the patient [facility] [place] [facility] This section includes future appointments and [...] 28, 2022 10:00 AM AMBULATORY - SURGERY [facility] Jun 25, 2022 09:30 AM AMBULATORY - NONE [place] ([facility]) Jun 28, 2022 01:00 PM AMBULATORY - MEDICINE [facility] Jul 02, 2022 11:00 AM AMBULATORY - PSYCHIATRY [place] ([facility]) Jul 25, 2022 09:45 AM AMBULATORY - MEDICINE [place] ([facility]) Active, Pending, and Scheduled Orders [...] 2022 04:20 AM Consult Order UROLOGY OUTPT [employer] Consultant's Choice Apr 30, 2022 12:23 PM Laboratory - Chemistry .CYTO PRINT CHART R [place] ([facility]) Order COPY-LABEL SPECIMEN OTHER SP ONCE Lab Results: +/- 30 days of the encounter This section includes the Chemistry and Hematology Lab Results on record with [place] for the patient. Radiology Reports and Pathology Reports are provided separately, in subsequent sections.Lab Results This section contains the Chemistry/Hematology Results that were resulted 30 days before or 30 daysafter the date of the Encounter. Date/Time Source Result Type Result - Unit Interpretation Reference Range Comment Apr 30, 2022 12:47 PM [place] ([facility]) CBC Specimen Type: BLOOD No comment enter ed. Ordering Provid er: EVANS AGUILAR Report Released Date/Time: Apr 30, 2022 12:31 PM Reporting Lab: [facility] [address] Performing Lab: [facility] [address] WBC 5.36 4.0-11.0 RBC 3.84 L 4.6-6.2 HGB 13.3 L 13.5-17.9 HCT 39.5 L 41-54 MCV 102.9 H 80-100 MCH 34.6 H 27-33 MCHC 33.7 32.0-37.5 PLT 291 150-400 MPV 9.9 7.4-10.4 RDW 14.0 11.5-14.5 Apr 30, 2022 12:47 [place] ([facility]) BASIC METABOLIC Specimen Ty pe: PLASMA PM PANEL+MG No comment enter ed. Ordering Provid er: EVANS AGUILAR Report Released Date/Time: Apr 30, 2022 12:31 PM Reporting Lab: [facility] [address] Performing Lab: [facility] [address] CREATININE 1.1 0.7-1.2 UREA NITROGEN 16 8-26 GLUCOSE 92 70-100 SODIUM 136 136-145 POTASSIUM 4.1 3.5-5.1 CHLORIDE 102 98-107 CO2 26 22-29 CALCIUM 10.3 H 8.4-10.2 MAGNESIUM 2.0 1.6-2.6 ANION GAP 8 5-15 CREAT EGFR(CKD-EPI) 70 >60 Apr 26, 2022 03:24 AM [facility] URINALYSIS Specim en Type: URINE No comment enter ed. Ordering Provid er: SYLVIE BONDS Report Released Date/Time: Apr 26, 2022 03:38 AM Reporting Lab: [facility] [address] Performing Lab: [facility] [address] URINE COLOR COLORLESS SPECIFIC GRAVITY 1.007 1.003-1.035 [...] ALL of a patient's completed or amended [place] Advance and Rescinded Directives. The entries below indicate that a directive exists for the patient, but an actual copy is not included with this document. The data comes from all [place] facilities. Date Advance Directives Provider Source Mar 12, 2019 ADVANCE DIRECTIVE KIARA BRANDT [facility] Mar 12, 2019 ADVANCE DIRECTIVE DISCUSSION KIARA BRANDT [facility] Pathology Reports: +/- 30 days of [...] the Encounter. The data comes from all [place] treatment facilities. Date/Time Pathology Report Provider Source May 02, 2022 10:49 AM LR CYTOPATHOLOGY REPORT: [facility] LOC[facility] TITLE: LR CYTOPATHOLOGY REPORT JENNIFER STANDARD TITLE: PATHOLOGY REPORT DATE OF NOTE: MAY 02, 2022@10:49:51 ENTRY DATE: MAY 02, 2022@10:49:51 AUTHOR: DEVIN FRIED EXP COSIGNER: URGENCY: STATUS: COMPLETED $APHDR Reporting Lab: [facility] [CLIA# [id number]] [place] [address] - - - - - - - [...] 2022@10:49 Performing Laboratory: Cytology Report Performed By: [facility] [CLIA# [id number]] [place] [address] $FTR - - - - - - [...] - - SHAWNA IBARRA STANDARD FORM 515 ID:[id number] SEX:M :1945 AGE: 76 LOC: 27099 PCP: Evans Aguilar MD /catia/ DEVIN FRIED STAFF PATHOLOGIST, PATHOLOGY & LABORATORY MED SV C Signed: 05/02/2022 10:49 Apr 26, 2022 03:24 AM LR MICROBIOLOGY REPORT: [facility] Reporting Lab: [facility] [CLIA# [id number]] [place] [address] Accession [UID]: [id number] [[id number]] Receiv ed: Apr 26, 2022@04:20 Collection sample: URINE Collection date: Mar 03:24 Provider: SYLVIE BONDS Comment on specimen: RECEIVED IN STERILE CUP Test(s) ordered: CULTURE & SUSCEPTIBILITY...... completed: Apr 27, 2022 * BACTERIOLOGY FINAL REPORT => Apr 27, 2022 11:0 6 TECH CODE: [id number] CULTURE RESULTS: NO GROWTH 24 HOURS Bacteriology Remark(s): THIS REPORT IS FINAL =--=--=--=--=--=--=--=--=--=--=--=--=--= --=--=--=--=--=--=--=--=--=--=--=--=-- Performing Laboratory: Bacteriology Report Performed By: [facility] [CLIA# [id number]] [place] [address] Encounter Notes: All associated encounter notes This section contains the clinical notes associated to the Encounter. Date/Time Encounter Note(s) Provider Source May 02, 2022 10:49 AM PATHOLOGY REPORT: DEVIN FRIED [facility] LOCAL TITLE: LR CYTOPATHOLOGY REPORT JENNIFER STANDARD TITLE: PATHOLOGY REPORT DATE OF NOTE: MAY 02, 2022@10:49:51 ENTRY DATE: MAY 02, 2022@10:49:51 AUTHOR: DEVIN FRIED EXP COSIGNER: URGENCY: STATUS: COMPLETED $APHDR Reporting Lab: [facility] [CLIA# [id number]] [place] [address] - - - - - - - [...] - - - - [facility] Description: Voided urine; 100 mL clear pale yellow fluid re ceived. One ThinPrep slide prepared. Microscopic: Microscopic examination performed. RS Diagnosis: Urine, cytology -- - NEGATIVE FOR HIGH-GRADE UROTHELIAL CARCINOMA /catia/ DEVIN FRIED STAFF PATHOLOGIST, PATHOLOGY & LABORATORY MED SV C Signed May 02, 2022@10:49 Performing Laboratory: Cytology Report Performed By: [facility] [CLIA# [id number]] [place] [address] $FTR - - - - - - [...] - - SHAWNA IBARRA STANDARD FORM 515 ID:[id number] SEX:M :1945 AGE: 76 LOC: 03625 PCP: Evans Aguilar MD /catia/ DEVIN FRIED STAFF PATHOLOGIST, PATHOLOGY & LABORATORY MED SV C Signed: 05/02/2022 10:49
--- OUTSIDE RECORDS SUMMARY | 2022-05-26 08:35 | XMS_ITS | Encounter Summary ---
:1945 Author Organization [facility] Address [address] [place] [address] Support Name Relationship Address Phone TERRELL FORD [...] Number Chen BLUELINK COMPREHEN MAXI Jul 28, [id number] [phone] JAZMIN ELAURENCEU PATIENT TPA SIVE E-O 2006 0 [id number] L MAJOR [facility] STOR EXPRESS PRESCRIPT MAXI Jul 28, KEERTHI [id number] [phone] MARIELOS IBARRA PATIENT SCRIPTS - ION E O 2005 [id number] L SUBROGATIO TURKE N Y [employer] MCR MEDICARE MCR Jul 28, [id number] [phone] KLU DELMERMARIELOS PATIENT (WNR) ADVANTAGE (WNR) 2013 1 89 8 L [employer] MCR MEDICARE MCR Jul 28, [id number] [phone] KLU DELMERMARIELOS PATIENT (WNR) ADVANTAGE (WNR) 2013 1 89 0 L [employer] MCR MEDICARE MCR Jul 28, [id number] [phone] KLU DELMERMARIELOS PATIENT (WNR) ADVANTAGE (WNR) 2013 1 89 2 L Selected Encounter This section includes the information on record at [place] for the Encounter. Date/Time Encounter Type Encounter Reason Provider Source Description May 10, 2022 11:47 Outpatient Encounter PRIMARY JOSE WOODS AM CARE/MEDICINE IHE Encounter Template Text not used by MS Plan of Treatment: Future Appointments (+ 6 months) and Future Tests (+/- 45 days) The Plan of Treatment section includes future care activities for the patient [facility] This section includes future appointments and future orders which are active, pending orscheduled.Future Appointments This section includes appointments that were scheduled to occur 6 months from the date of the Encounter, up to a maximum of 20 appointments. The data comes from all [facility]. Appointment Date/Time Appointment Type Appointment Facili ty Name May 28, 2022 10:00 AM AMBULATORY - SURGERY [facility] S Jun 25, 2022 09:30 AM AMBULATORY - NONE [place] ([facility]) Jun 28, 2022 01:00 PM AMBULATORY - MEDICINE [facility] CS Jul 02, 2022 11:00 AM AMBULATORY - PSYCHIATRY [facility] ([facility]) Jul 25, 2022 09:45 AM AMBULATORY - MEDICINE [facility] ([facility]) Active, Pending, and Scheduled Orders This section includes a listing of several types of active, pending, and scheduled orders, including clinic medications orders, diagnostic test orders, procedure orders and consult orders; where the start date of the order is 45 days before the date of the Encounter or 45 days after the date of the Encounter. The data comes from all [facility]. Test Date/Time Test Type Test Details Facility Name Apr 26, 2022 04:20 AM Consult Order UROLOGY OUTPT [facility] Client Support Associate's Choice Apr 30, 2022 12:23 PM Laboratory - Chemistry .CYTO PRINT CHART R [place] ([facility]) Order COPY-LABEL SPECIMEN OTHER SP ONCE Lab Results: +/- 30 days of the encounter This section includes the Chemistry and Hematology Lab Results on record with [place] for the patient. Radiology Reports and Pathology Reports are provided separately, in subsequent sections.Lab Results This section contains the Chemistry/Hematology Results that were resulted 30 days before or 30 daysafter the date of the Encounter. Date/Time Source Result Type Result - Unit Interpretation Reference Range Comment Apr 30, 2022 12:47 [place] ([facility]) BASIC METABOLIC Specimen Ty pe: PLASMA PM PANEL+MG No comment enter ed. Ordering Provid er: EVANS AGUILAR Report Released Date/Time: Apr 30, 2022 12:31 PM Reporting Lab: [facility] [address] [facility] [address] Performing Lab: [facility] [address] CREATININE 1.1 0.7-1.2 UREA NITROGEN 16 8-26 GLUCOSE 92 70-100 SODIUM 136 136-145 POTASSIUM 4.1 3.5-5.1 CHLORIDE 102 98-107 CO2 26 22-29 CALCIUM 10.3 H 8.4-10.2 MAGNESIUM 2.0 1.6-2.6 ANION GAP 8 5-15 CREAT EGFR(CKD-EPI) 70 >60 Apr 30, 2022 12:47 PM [place] ([facility]) CBC Specimen Type: BLOOD No comment enter ed. Ordering Provid er: EVANS AGUILAR Report Released Date/Time: Apr 30, 2022 12:31 PM Reporting Lab: [facility] [address] Performing Lab: [facility] [address] WBC 5.36 4.0-11.0 RBC 3.84 L 4.6-6.2 HGB 13.3 L 13.5-17.9 HCT 39.5 L 41-54 MCV 102.9 H 80-100 MCH 34.6 H 27-33 MCHC 33.7 32.0-37.5 PLT 291 150-400 MPV 9.9 7.4-10.4 RDW 14.0 11.5-14.5 Apr 26, 2022 03:24 AM [facility] URINALYSIS Specim en Type: URINE No comment enter ed. Ordering Provid er: SYLVIE BONDS Report Released Date/Time: Apr 26, 2022 03:38 AM Reporting Lab: [facility] [address] Performing Lab: [facility] [address] URINE COLOR COLORLESS SPECIFIC GRAVITY 1.007 1.003-1.035 [...] ALL of a patient's completed or amended [place] Advance and Rescinded Directives. The entries below indicate that a directive exists for the patient, but an actual copy is not included with this document. The data comes from all [place] facilities. Date Advance Directives Provider Source Mar 12, 2019 ADVANCE DIRECTIVE LINSEY BRANDTWN [facility] Mar 12, 2019 ADVANCE DIRECTIVE [...] the Encounter. The data comes from all [place] treatment facilities. Date/Time Pathology Report Provider Source May 02, 2022 10:49 AM LR CYTOPATHOLOGY REPORT: DEVIN FRIED [facility] LOCAL TITLE: LR CYTOPATHOLOGY REPORT JENNIFER STANDARD TITLE: PATHOLOGY REPORT DATE OF NOTE: MAY 02, 2022@10:49:51 ENTRY DATE: MAY 02, 2022@10:49:51 AUTHOR: DEVIN FRIED EXP COSIGNER: URGENCY: STATUS: COMPLETED $APHDR Reporting Lab: [facility] [CLIA# [id number]] [place] [address] - - - - - - - [...] - - - - Screened by: GIACOMO DECKERFORMERLY NAMED [facility] Description: Voided urine; 100 mL clear pale yellow fluid re ceived. One ThinPrep slide prepared. Microscopic: Microscopic examination performed. RS Diagnosis: Urine, cytology -- - NEGATIVE FOR HIGH-GRADE UROTHELIAL CARCINOMA /es/ DEVIN FRIED STAFF PATHOLOGIST, PATHOLOGY & LABORATORY MED SV C Signed May 02, 2022@10:49 Performing Laboratory: Cytology Report Performed By: [facility] [CLIA# [id number]] [place] [address] $FTR - - - - - - [...] - - - - - SHAWNA IBARRA CASHJUANA STANDARD FORM 515 ID:[id number] SEX:M :1945 AGE: 76 LOC: 843[address] PCP: Evans Aguilar MD /catia/ DEVIN FRIED STAFF PATHOLOGIST, PATHOLOGY & LABORATORY MED SV C Signed: 05/02/2022 10:49 Apr 26, 2022 03:24 AM LR MICROBIOLOGY REPORT: NM KEVIN [facility] Reporting Lab: [facility] [CLIA# [id number]] [place] [address] Accession [UID]: [id number] [[id number]] Receiv ed: Apr 26, 2022@04:20 Collection sample: URINE Collection date: Mar 03:24 Provider: SYLVIE BONDS Comment on specimen: RECEIVED IN STERILE CUP Test(s) ordered: CULTURE & SUSCEPTIBILITY...... completed: Apr 27, 2022 * BACTERIOLOGY FINAL REPORT => Apr 27, 2022 11:0 6 TECH CODE: [id number] CULTURE RESULTS: NO GROWTH 24 HOURS Bacteriology Remark(s): THIS REPORT IS FINAL =--=--=--=--=--=--=--=--=--=--=--=--=--= --=--=--=--=--=--=--=--=--=--=--=--=-- Performing Laboratory: Bacteriology Report Performed By: [facility] [CLIA# [id number]] [place] [address] Encounter Notes: All associated encounter notes This section contains the clinical notes associated to the Encounter. Date/Time Encounter Note(s) Provider Source May 10, 2022 11:47 AM PRIMARY CARE SECURE MESSAGING: ROSEANNA WOODS [place] ([facility]) LOCAL TITLE: PRIMARY CARE SECURE MESSAGING STANDARD TITLE: PRIMARY CARE SECURE MESSAGING DATE OF NOTE: MAY 10, 2022@11:47 ENTRY DATE: MAY 10, 2022@11:47:27 AUTHOR: ROSEANNA WOODS EXP COSIGNER: URGENCY: STATUS: COMPLETED ------Original Message Sent: 05/10/2022 12:47 PM ET From: ROSEANNA WOODS To: SHAWNA IBARRA Subject: Test:Test Inquiry Jansavanna, Left you a voicemail but also wanted to send kylie robison to you. Reason for Contact: please call-urine cytology did not show any cancer cells, blood work about the estefani /catia/ EVANS AGUILAR [facility] physician Signed: 05/02/2022 11:42 Roseanna TRINH /catia/ ROSEANNA WOODS LPN LPN [facility] Signed: 05/10/2022 11:47
--- OUTSIDE RECORDS SUMMARY | 2022-05-26 08:35 | XMS_ITS | Encounter Summary ---
:1945 Author Organization [facility] Address [address] [place] [address] Support Name Relationship Address Phone TERRELL FORD [...] Number Chen BLUELINK COMPREHEN MAXI Jul 28, [id number] [phone] JAZMIN ELAURENCEU PATIENT TPA SIVE E-O 2006 0 [id number] L MAJOR [facility] STOR EXPRESS PRESCRIPT MAXI Jul 28, KEERTHI [id number] [phone] MARIELOS IBARRA PATIENT SCRIPTS - ION E O 2005 [id number] L SUBROGATIO TURKE N Y [employer] MCR MEDICARE MCR Jul 28, [id number] [phone] KLU DELMERMARIELOS PATIENT (WNR) ADVANTAGE (WNR) 2013 1 89 8 L [employer] MCR MEDICARE MCR Jul 28, [id number] KLU DELMERMARIELOS PATIENT (WNR) ADVANTAGE (WNR) 2013 1 89 0 L [employer] MCR MEDICARE MCR Jul 28, [id number] [phone] KLViraj DOWELLMARIELOS PATIENT (WNR) ADVANTAGE (WNR) 2013 1 89 2 L Selected Encounter This section includes the information on record at OR for the Encounter. Date/Time Encounter Type Encounter Reason Provider Source Description May 09, 2022 Outpatient SLEEP STUDY ICD-10-CM G47.33 LINSEY SWAN 07:44 AM Encounter Obstructive sleep NNON apnea (adult) (pediatric) with Provider Comments: Obstructive Sleep Apnea IHE Encounter Template Text not used by [facility] Assessments - Encounter Diagnoses This section includes the primary and secondary diagnoses documented for the Encounter. Date/Time Primary/Secondary Diagnosis Name Provider Source Diagnosis May 09, 2022 PRIMARY Obstructive sleep MAURICIO SWAN [facility] 07:44 AM apnea (adult) NON HCS (pediatric) Plan of Treatment: Future Appointments (+ 6 months) and Future Tests (+/- 45 days) The Plan of Treatment section includes future care activities for the patient from all [place] [facility]. This section includes future appointments and future orders which are active, pending orscheduled.Future Appointments This section includes appointments that were scheduled to occur 6 months from the date of the Encounter, up to a maximum of 20 appointments. The data comes from all [facility]. Appointment Date/Time Appointment Type Appointment Facili ty Name May 28, 2022 10:00 AM AMBULATORY - SURGERY [facility] S Jun 25, 2022 09:30 AM AMBULATORY - NONE [place] ([facility]) Jun 28, 2022 01:00 PM AMBULATORY - MEDICINE [facility] H CS Jul 02, 2022 11:00 AM AMBULATORY - PSYCHIATRY [place] ([facility]) Jul 25, 2022 09:45 AM AMBULATORY - MEDICINE [place] ([facility]) Active, Pending, and Scheduled Orders This [...] The data comes from all [place] treatment [facility]. Test Date/Time Test Type Test Details Facility Name Apr 26, 2022 04:20 AM Consult Order UROLOGY OUTPT Cons [facility] Dispensing Optician Apprentice's Choice Apr 30, 2022 12:23 PM Laboratory - Chemistry .CYTO PRINT CHART R [place] ([facility]) Order COPY-LABEL SPECIMEN OTHER SP ONCE Lab [...] Range Comment Apr 30, 2022 12:47 PM [place] ([place]) CBC Specimen Type: BLOOD No comment enter ed. Ordering Provid er: EVANS AGUILAR Report Released Date/Time: Apr 30, 2022 12:31 PM Reporting Lab: [facility] [address] Performing Lab: [facility] [address] WBC 5.36 4.0-11.0 RBC 3.84 L 4.6-6.2 HGB 13.3 L 13.5-17.9 HCT 39.5 L 41-54 MCV 102.9 H 80-100 MCH 34.6 H 27-33 MCHC 33.7 32.0-37.5 PLT 291 150-400 MPV 9.9 7.4-10.4 RDW 14.0 11.5-14.5 Apr 30, 2022 12:47 [place] ([facility]) BASIC METABOLIC Specimen Ty pe: PLASMA PM PANEL+MG No comment enter ed. Ordering Provid er: EVANS AGUILAR Report Released Date/Time: Apr 30, 2022 12:31 PM Reporting Lab: [facility] [address] Performing Lab: [facility] [address] CREATININE 1.1 0.7-1.2 UREA NITROGEN 16 8-26 GLUCOSE 92 70-100 SODIUM 136 136-145 POTASSIUM 4.1 3.5-5.1 CHLORIDE 102 98-107 CO2 26 22-29 CALCIUM 10.3 H 8.4-10.2 MAGNESIUM 2.0 1.6-2.6 ANION GAP 8 5-15 CREAT EGFR(CKD-EPI) 70 >60 Apr 26, 2022 03:24 AM [facility] URINALYSIS Specim en Type: URINE No comment enter ed. Ordering Provid er: SYLVIE BONDS Report Released Date/Time: Apr 26, 2022 03:38 AM Reporting Lab: [facility] [address] Performing Lab: [facility] [address] URINE COLOR COLORLESS SPECIFIC GRAVITY 1.007 1.003-1.035 [...] Mar 12, 2019 ADVANCE DIRECTIVE KIARA BRANDT [facility] Mar 12, 2019 ADVANCE DIRECTIVE DISCUSSION KIARA BRANDT [facility] Pathology Reports: +/- 30 days of [...] The data comes from all [place] treatment facilities. Date/Time Pathology Report Provider Source May 02, 2022 10:49 AM LR CYTOPATHOLOGY REPORT: DEVIN FRIED [facility] LOCAL TITLE: LR CYTOPATHOLOGY REPORT JENNIFER STANDARD TITLE: PATHOLOGY REPORT DATE OF NOTE: MAY 02, 2022@10:49:51 ENTRY DATE: MAY 02, 2022@10:49:51 AUTHOR: DEVIN FRIED EXP COSIGNER: URGENCY: STATUS: COMPLETED $APHDR Reporting Lab: [facility] [CLIA# [id number]] [place] [address] - - - - - - - [...] 2022@10:49 Performing Laboratory: Cytology Report Performed By: [facility] [CLIA# [id number]] [place] [address] $FTR - - - - - - [...] - - SHAWNA IBARRA STANDARD FORM 515 ID:[id number] SEX:M :1945 AGE: 76 LOC: 71082 PCP: Evans Aguilar MD /catia/ DEVIN FRIED STAFF PATHOLOGIST, PATHOLOGY & LABORATORY MED SV C Signed: 05/02/2022 10:49 Apr 26, 2022 03:24 AM LR MICROBIOLOGY REPORT: [place] KEVIN [facility] Reporting Lab: [facility] [CLIA# [id number]] [place] [address] Accession [UID]: [id number] [[id number]] Receiv ed: Apr 26, 2022@04:20 Collection sample: URINE Collection date: Mar 03:24 Provider: SYLVIE BONDS Comment on specimen: RECEIVED IN STERILE CUP Test(s) ordered: CULTURE & SUSCEPTIBILITY...... completed: Apr 27, 2022 * BACTERIOLOGY FINAL REPORT => Apr 27, 2022 11:0 6 TECH CODE: [id number] CULTURE RESULTS: NO GROWTH 24 HOURS Bacteriology Remark(s): THIS REPORT IS FINAL =--=--=--=--=--=--=--=--=--=--=--=--=--= --=--=--=--=--=--=--=--=--=--=--=--=-- Performing Laboratory: Bacteriology Report Performed By: [facility] [CLIA# [id number]] [address] [place] [address] Encounter Notes: All associated encounter notes This section contains the clinical notes associated to the Encounter. Date/Time Encounter Note(s) Provider Source May 09, 2022 07:44 AM SLEEP MEDICINE DIAGNOSTIC STUDY REPORT: SAMANTHA VALERA [facility] LOCAL TITLE: SLEEP HST DATA UPLOAD STANDARD TITLE: SLEEP MEDICINE DIAGNOSTIC STUDY REPORT DATE OF NOTE: MAY 09, 2022@07:44 ENTRY DATE: MAY 09, 2022@08:00:15 AUTHOR: SAMANTHA SWAN EXP COSIGNER: URGENCY: STATUS: COMPLETED Home sleep testing was compl eted by the patient and the device was returned. The data has been uploaded and reviewed for quality. : Data quality is: Acceptable Study to be scored and reviewed for interpretat nelly evans/ SAMANTHA SWAN RCP HOME CPAP COORDINATOR Signed: 05/09/2022 08:00
--- OUTSIDE RECORDS SUMMARY | 2022-05-26 08:35 | XMS_ITS | Encounter Summary ---
:1945 Author Organization [facility] Address [address] [place] [id number] Support Name Relationship Address Phone TERRELL FORD [...] Number Chen BLUELINK COMPREHEN MAXI Jul 28, [id number] [phone] JAZMIN ELAURENCEU PATIENT TPA SIVE E-O 2006 0 [id number] L MAJOR [facility] STOR EXPRESS PRESCRIPT MAXI Jul 28, KEERTHI [id number] [phone] MARIELOS IBARRA PATIENT SCRIPTS - ION E O 2004 [id number] L SUBROGATIO TURKE N Y [employer] MCR MEDICARE MCR Jul 28, [id number] [phone] KLU DELMERMARIELOS PATIENT (WNR) ADVANTAGE (WNR) 2013 1 89 8 L [employer] MCR MEDICARE MCR Jul 28, [id number] KLU DELMERMARIELOS PATIENT (WNR) ADVANTAGE (WNR) 2013 1 89 0 L [employer] MCR MEDICARE MCR Jul 28, [id number] [phone] KLViraj DOWELLMARIELOS PATIENT (WNR) ADVANTAGE (WNR) 2013 1 89 2 L Selected Encounter This section includes the information on record at [place] for the Encounter. Date/Time Encounter Type Encounter Reason Provider Source Description May 10, 2022 ELECTROPHONIC ENGINEER MCKAY SLEEP STUDY ICD-10-CM G47.33 DONY GOMEZ 01:24 PM UNATTENDED Obstructive sleep apnea (adult) (pediatric) with Provider Comments: Obstructive Sleep Apnea IHE Encounter Template Text not used by [facility] Assessments - Encounter Diagnoses This section includes the primary and secondary diagnoses documented for the Encounter. Date/Time Primary/Secondary Diagnosis Name Provider Source Diagnosis May 10, 2022 PRIMARY Obstructive sleep DONY GOMEZ [place] 01:24 PM apnea (adult) HCS (pediatric) Plan of Treatment: Future Appointments (+ 6 months) and Future Tests (+/- 45 days) The Plan of Treatment section includes future care activities for the patient from all [place] [facility]. This section includes future appointments and future orders which are active, pending orscheduled.Future Appointments This section includes appointments that were scheduled to occur 6 months from the date of the Encounter, up to a maximum of 20 appointments. The data comes from all [facility]. Appointment Date/Time Appointment Type Appointment Facili ty Name May 28, 2022 10:00 AM AMBULATORY - SURGERY [facility] S Jun 25, 2022 09:30 AM AMBULATORY - NONE [place] ([facility]) Jun 28, 2022 01:00 PM AMBULATORY - MEDICINE [facility] H CS Jul 02, 2022 11:00 AM AMBULATORY - PSYCHIATRY [place] ([facility]) Jul 25, 2022 09:45 AM AMBULATORY - MEDICINE [place] ([facility]) Active, Pending, and Scheduled Orders This section includes a listing of several types of active, pending, and scheduled orders, including clinic medications orders, diagnostic test orders, procedure orders and consult orders; where the start date of the order is 45 days before the date of the Encounter or 45 days after the date of the Encounter. The data comes from all [place] treatment [facility]. Test Date/Time Test Type Test Details Facility Name Apr 26, 2022 04:20 AM Consult Order [facility] Straight Line Press Setter[facility] Choice Apr 30, 2022 12:23 PM Laboratory - Chemistry .CYTO PRINT CHART R [place] ([facility]) Order COPY-LABEL SPECIMEN OTHER SP ONCE [...] Range Comment Apr 30, 2022 12:47 PM [place] (OC) CBC Specimen Type: BLOOD No comment enter ed. Ordering Provid er: EVANS AGUILAR Report Released Date/Time: Apr 30, 2022 12:31 PM Reporting Lab: [facility] [address] Performing Lab: [facility] [id number] WBC 5.36 4.0-11.0 RBC 3.84 L 4.6-6.2 HGB 13.3 L 13.5-17.9 HCT 39.5 L 41-54 MCV 102.9 H 80-100 MCH 34.6 H 27-33 MCHC 33.7 32.0-37.5 PLT 291 150-400 MPV 9.9 7.4-10.4 RDW 14.0 11.5-14.5 Apr 30, 2022 12:47 [place] ([facility]) BASIC METABOLIC Specimen Ty pe: PLASMA PM PANEL+MG No comment enter ed. Ordering Provid er: EVANS AGUILAR Report Released Date/Time: Apr 30, 2022 12:31 PM Reporting Lab: [facility] [address] Performing Lab: [facility] [address] CREATININE 1.1 0.7-1.2 UREA NITROGEN 16 8-26 GLUCOSE 92 70-100 SODIUM 136 136-145 POTASSIUM 4.1 3.5-5.1 CHLORIDE 102 98-107 CO2 26 22-29 CALCIUM 10.3 H 8.4-10.2 MAGNESIUM 2.0 1.6-2.6 ANION GAP 8 5-15 CREAT EGFR(CKD-EPI) 70 >60 Apr 26, 2022 03:24 AM [facility] URINALYSIS Specim en Type: URINE No comment enter ed. Ordering Provid er: SYLVIE BONDS Report Released Date/Time: Apr 26, 2022 03:38 AM Reporting Lab: [facility] [address] Performing Lab: [facility] [address] URINE COLOR COLORLESS SPECIFIC GRAVITY 1.007 1.003-1.035 [...] Mar 12, 2019 ADVANCE DIRECTIVE KIARA BRANDT [facility] Mar 12, 2019 ADVANCE DIRECTIVE DISCUSSION [...] the Encounter. The data comes from all [place] treatment facilities. Date/Time Pathology Report Provider Source May 02, 2022 10:49 AM LR CYTOPATHOLOGY REPORT: DEVIN FRIED [facility] LOCAL TITLE: LR CYTOPATHOLOGY REPORT JENNIFER STANDARD TITLE: PATHOLOGY REPORT DATE OF NOTE: MAY 02, 2022@10:49:51 ENTRY DATE: MAY 02, 2022@10:49:51 AUTHOR: DEVIN FRIED EXP COSIGNER: URGENCY: STATUS: COMPLETED $APHDR Reporting Lab: [facility] [CLIA# [id number]] [place] [address] - - - - - - - [...] 2022@10:49 Performing Laboratory: Cytology Report Performed By: [facility] [CLIA# [id number]] [place] [address] $FTR - - - - - - [...] - - SHAWNA IBARRA STANDARD FORM 515 ID:[id number] SEX:M :1945 AGE: 76 LOC: [address] PCP: Evans Aguilar MD /catia/ DEVIN FRIED STAFF PATHOLOGIST, PATHOLOGY & LABORATORY MED SV C Signed: 05/02/2022 10:49 Apr 26, 2022 03:24 AM LR MICROBIOLOGY REPORT: MS KEVIN [facility] Reporting Lab: [facility] [CLIA# [id number]] [place] [address] Accession [UID]: [id number] [[id number]] Receiv ed: Apr 26, 2022@04:20 Collection sample: URINE Collection date: Mar 03:24 Provider: SYLVIE BONDS Comment on specimen: RECEIVED IN STERILE CUP Test(s) ordered: CULTURE & SUSCEPTIBILITY...... completed: Apr 27, 2022 * BACTERIOLOGY FINAL REPORT => Apr 27, 2022 11:0 6 TECH CODE: [id number] CULTURE RESULTS: NO GROWTH 24 HOURS Bacteriology Remark(s): THIS REPORT IS FINAL =--=--=--=--=--=--=--=--=--=--=--=--=--= --=--=--=--=--=--=--=--=--=--=--=--=-- Performing Laboratory: Bacteriology Report Performed By: [facility] [CLIA# [id number]] [address] [place] [address] Encounter Notes: All associated encounter notes This section contains the clinical notes associated to the Encounter. Date/Time Encounter Note(s) Provider Source May 10, 2022 01:24 PM SLEEP MEDICINE CONSULT: DONY GOMEZ [place] [facility] LOCAL TITLE: SLEEP HST INTERPRETATION CONSULT STANDARD TITLE: SLEEP MEDICINE CONSULT DATE OF NOTE: MAY 10, 2022@13:24 ENTRY DATE: MAY 10, 2022@13:24:26 AUTHOR: DONY GOMEZ EXP COSIGNER: URGENCY: STATUS: COMPLETED [facility] HOME SLEEP APNEA TEST- WatchPAT IDENTIFICATION: Name (Last, First): SHAWNA IBARRA : 1945 Referred by: Not Available Study date: 05/08/2022 STUDY TECHNIQUE AND DEFINITIONS: The WatchPAT device monitors and measures variations in peripheral arterial tone (PAT) via an opto-pneumatic finger-mount ed probe. Additional recorded channels include pulse rate, oximetry , actigraphy, body position, chest motion, and snore sensor. Sleep/wake detection is based upon actigraphy da ta; and sleep staging is thereafter based upon variab ility in pulse rate, attenuation and variability of PAT amplitude, and inter-pulse period features. The PAT Apnea-Hypopnea Index (pAHI) and PAT Respiratory Disturbance Index (pR DI) are estimates of conventional pAHI and pRDI values produced by po lysomnography. pAHI-4% is calculated using oxygen desaturations of >=4% pe r hour of technically valid sleep time (TVST). Oxygen desaturation index 4% (RANJEET-4%) is calculated using number of >=4% oxygen desaturations per hour of TVST. PATIENT HISTORY: 76 year old Male with BMI of 26 (weight 174 lbs, height 69 inches) ESS:could not be retreived Medication List: FINASTERIDE 5MG TAB, HY DROCHLOROTHIAZIDE 25MG TAB, TAMSULOSIN HCL 0.4MG CAP, CHOLECALCIFEROL TAB, NON VA MED N OT LISTED MISCELLANEOUS Indications: N/A STUDY DETAILS: - Total Recording Time 6 hrs. 57 min. - Study start time 22:51:58 PM - Study stop time 05:49:14 AM - Technically valid sleep time 6 hrs. 9 min. - Total Sleep Time 6 hrs. 9 min. - REM was 21.3% of technically valid sleep time BODY POSITION - Supine sleep was 2 hrs. 12 min. (35.8% of TVST ) - Non-Supine sleep was 3 hrs. 57 min. (64.2% of TVST) RESPIRATORY PARAMETERS: - pAHI-4% was 0.7 - Supine pAHI-4% was 1.4 - Non-supine pAHI-4% was 0.3 - Estimated REM pAHI-4% was 0.8 - Central pAHI-4% was 0 - pRDI was 4.1 - Snoring >50dB for 0.4% of TVST - RANJEET was 0.8 - Mean oxygen saturation was 95% - Lowest oxygen saturation was 90% - Saturations < 90%: 0 minutes (0% of TVST) - Saturations <= 88%: 0 minutes (0% of TVST) HEART RATE STATISTICS (BPM) - Mean: 55; Min: 43; Max: 93 IMPRESSION: - Study demonstrated adequate sampling of record ing time with sufficient technical quality. - No evidence of significant sleep relat ed respiratory events seen during this study. - Snoring was >50db for 0.4% of TVST PLAN: - Patient should optimize sleep schedule and hyg iene. if there is persistent complain of sleep disturbance by the patient, co nsider referral to the out patient clinic for further evaluation. - Sleep hygiene should be reviewed to assess fac tors that may improve sleep quality. - Patient is advised to avoid operating heavy ma chinery, driving and other hazardous situations which require alertness, wh en drowsy. - Follow up with referring provider. - Patient will be contacted to discuss study res lisats. /catia/ DONY GOMEZ MD SLEEP PHYSICIAN Signed: 05/10/2022 13:24
--- OUTSIDE RECORDS SUMMARY | 2022-05-26 08:35 | XMS_ITS | Encounter Summary ---
:1945 Author Organization [facility] Address [address] [place] [address] Support Name Relationship Address Phone TERRELL FORD [...] Number Chen BLUELINK COMPREHEN MAXI Jul 28, [id number] [phone] JAZMIN ELAURENCEU PATIENT TPA SIVE E-O 2006 0 [phone] [phone] L MAJOR [facility] STOR EXPRESS PRESCRIPT MAXI Jul 28, KEERTHI [id number] [phone] MARIELOS IBARRA PATIENT SCRIPTS - ION E O 2005 [id number] L SUBROGATIO TURKE N Y [employer] MCR MEDICARE MCR Jul 28, [id number] [phone] KLU DELMERMARIELOS PATIENT (WNR) ADVANTAGE (WNR) 2013 1 89 8 L [employer] MCR MEDICARE MCR Jul 28, [id number] [phone] KLU DELMERMARIELOS PATIENT (WNR) ADVANTAGE (WNR) 2013 1 89 0 L [employer] MCR MEDICARE MCR Jul 28, [id number] [phone] KLViraj DOWELLMARIELOS PATIENT (WNR) ADVANTAGE (WNR) 2013 1 89 2 L Selected Encounter This section includes the information on record at [place] for the Encounter. Date/Time Encounter Type Encounter Reason Provider Source Description May 14, 2022 PULMONARY TELEPHONE/MEDICIN ICD-10-CM G47.33 MAURICIO SWAN 03:31 PM SERVICE/PROCEDU E Obstructive sleep NON RE apnea (adult) (pediatric) with Provider Comments: Obstructive Sleep Apnea (Adult) (Pediatric) IHE Encounter Template Text not used by [place] Assessments - Encounter Diagnoses This section includes the primary and secondary diagnoses documented for the Encounter. Date/Time Primary/Secondary Diagnosis Name Provider Source Diagnosis May 14, 2022 PRIMARY Obstructive sleep MAURICIO SWAN [facility] 03:31 PM apnea (adult) NON HCS (pediatric) Plan of Treatment: Future Appointments (+ 6 months) and Future Tests (+/- 45 days) The Plan of Treatment section includes future care activities for the patient from all [place] [facility] This section includes future appointments and future orders which are active, pending orscheduled.Future Appointments This section includes appointments that were scheduled to occur 6 months from the date of the Encounter, up to a maximum of 20 appointments. The data comes from all [place] treatment [facility]. Appointment Date/Time Appointment Type Appointment Facili ty Name May 28, 2022 10:00 AM AMBULATORY - SURGERY [facility] S Jun 25, 2022 09:30 AM AMBULATORY - NONE [place] ([facility]) Jun 28, 2022 01:00 PM AMBULATORY - MEDICINE [facility] Jul 02, 2022 11:00 AM AMBULATORY - PSYCHIATRY [place] ([facility]) Jul 25, 2022 09:45 AM AMBULATORY - MEDICINE [place] ([facility]) Active, Pending, and Scheduled Orders This section includes a listing of several types of active, pending, and scheduled orders, including clinic medications orders, diagnostic test orders, procedure orders and consult orders; where the start date of the order is 45 days before the date of the Encounter or 45 days after the date of the Encounter. The data comes from all [facility]. Test Date/Time Test Type Test Details Facility Name Apr 26, 2022 04:20 AM Consult Order UROLOGY OUTPT Cons [facility] Apr 30, 2022 12:23 PM Laboratory - .CYTO PRINT CHART [place] ([facility]) Chemistry Order COPY-LABEL SPECIMEN OTHER SP ONCE Jun 25, 2022 12:00 AM Laboratory - CBC & DIFF BLOOD ONCO SP M [facility] Chemistry Order ONCE Jun 25, 2022 12:00 AM Laboratory - COMPREHENSIVE METABOLIC [facility] Chemistry Order PANEL+MG PLASMA ONCO SP Jun 25, 2022 12:00 AM Laboratory - IRON GROUP SERUM ONCO SP M [facility] Chemistry Order Lab Results: +/- 30 days of the [...] Range Comment Apr 30, 2022 12:47 PM [place] ([facility]) CBC Specimen Type: BLOOD No comment enter ed. Ordering Provid er: EVANS AGUILAR Report Released Date/Time: Apr 30, 2022 12:31 PM Reporting Lab: [facility] [address] Performing Lab: [facility] [address] WBC 5.36 4.0-11.0 RBC 3.84 L 4.6-6.2 HGB 13.3 L 13.5-17.9 HCT 39.5 L 41-54 MCV 102.9 H 80-100 MCH 34.6 H 27-33 MCHC 33.7 32.0-37.5 PLT 291 150-400 MPV 9.9 7.4-10.4 RDW 14.0 11.5-14.5 Apr 30, 2022 12:47 [place] ([facility]) BASIC METABOLIC Specimen Ty pe: PLASMA PM PANEL+MG No comment enter ed. Ordering Provid er: EVANS AGUILAR Report Released Date/Time: Apr 30, 2022 12:31 PM Reporting Lab: [facility] [address] Performing Lab: [facility] [address] CREATININE 1.1 0.7-1.2 UREA NITROGEN 16 8-26 GLUCOSE 92 70-100 SODIUM 136 136-145 POTASSIUM 4.1 3.5-5.1 CHLORIDE 102 98-107 CO2 26 22-29 CALCIUM 10.3 H 8.4-10.2 MAGNESIUM 2.0 1.6-2.6 ANION GAP 8 5-15 CREAT EGFR(CKD-EPI) 70 >60 Apr 26, 2022 03:24 AM [facility] URINALYSIS Specim en Type: URINE No comment enter ed. Ordering Provid er: SYLVIE BONDS Report Released Date/Time: Apr 26, 2022 03:38 AM Reporting Lab: [facility] [address] Performing Lab: [facility] TO[facility] [address] URINE COLOR COLORLESS SPECIFIC GRAVITY 1.007 1.003-1.035 [...] Mar 12, 2019 ADVANCE DIRECTIVE KIARA BRANDT [facility] Mar 12, 2019 ADVANCE DIRECTIVE DISCUSSION KIARA BRANDT [facility] Pathology Reports: +/- 30 days [...] 10:49 AM LR CYTOPATHOLOGY REPORT: DEVIN FRIED [facility] LOCAL TITLE: LR CYTOPATHOLOGY REPORT JENNIFER STANDARD TITLE: PATHOLOGY REPORT DATE OF NOTE: MAY 02, 2022@10:49:51 ENTRY DATE: MAY 02, 2022@10:49:51 AUTHOR: DEVIN FRIED EXP COSIGNER: URGENCY: STATUS: COMPLETED $APHDR Reporting Lab: [facility] [CLIA# [id number]] [place] [address] - - - - - - - [...] - - - Screened by: GIACOMO BOSE DE Description: Voided urine; 100 mL clear pale yellow fluid re ceived. One ThinPrep slide prepared. Microscopic: Microscopic examination performed. RS Diagnosis: Urine, cytology -- - NEGATIVE FOR HIGH-GRADE UROTHELIAL CARCINOMA /catia/ DEVIN FRIED STAFF PATHOLOGIST, PATHOLOGY & LABORATORY MED C Signed May 02, 2022@10:49 Performing Laboratory: Cytology Report Performed By: [facility] [CLIA# [id number]] [place] [address] $FTR - - - - - - [...] - - SHAWNA IBARRA STANDARD FORM 515 ID:[id number] SEX:M :1945 AGE: 76 LOC: [address]1940 PCP: Evans Aguilar MD /catia/ DEVIN FRIED STAFF PATHOLOGIST, PATHOLOGY & LABORATORY MED SV C Signed: 05/02/2022 10:49 Apr 26, 2022 03:24 AM LR MICROBIOLOGY REPORT: AVA BROWN [facility] Reporting Lab: [facility] [CLIA# [id number]] [place] [address] Accession [UID]: [id number] [[id number]] Receiv ed: Apr 26, 2022@04:20 Collection sample: URINE Collection date: Mar 03:24 Provider: SYLVIE BONDS Comment on specimen: RECEIVED IN STERILE CUP Test(s) ordered: CULTURE & SUSCEPTIBILITY...... completed: Apr 27, 2022 * BACTERIOLOGY FINAL REPORT => Apr 27, 2022 11:0 6 TECH CODE: [id number] CULTURE RESULTS: NO GROWTH 24 HOURS Bacteriology Remark(s): THIS REPORT IS FINAL =--=--=--=--=--=--=--=--=--=--=--=--=--= --=--=--=--=--=--=--=--=--=--=--=--=-- Performing Laboratory: Bacteriology Report Performed By: [facility] [CLIA# [id number]] [place] [address] Encounter Notes: All associated encounter notes This section contains the clinical notes associated to the Encounter. Date/Time Encounter Note(s) Provider Source May 14, 2022 03:31 PM SLEEP MEDICINE NOTE: SAMANTHA SWAN [employer] LOCAL TITLE: SLEEP MEDICINE NOTE STANDARD TITLE: SLEEP MEDICINE NOTE DATE OF NOTE: MAY 14, 2022@15:31 ENTRY DATE: MAY 14, 2022@15:31:36 AUTHOR: SAMANTHA SWAN EXP COSIGNER: URGENCY: STATUS: COMPLETED Called patient and reviewed WPAT sleep study results. Negative for CHELLE. AHI 0.7. ESS 12. Patient stated he wakes up and he cannot breathe through his nose. He will discuss with his PC, he may benefit from a ENT evaluation. Cautioned against drowsy driving or operating he edward machinery when drowsy. Recommended that patient promote good sleep hygi christopher and adequate sleep time. Avoid driving or operating heavy machinery while drowsy. If there is persistent complaint of slee p disturbance by the patient, consider referral to the outpatient sleep clinic for furt her evaluation. /catia/ SAMANTHA SWAN RCP HOME CPAP COORDINATOR Signed: 05/14/2022 15:34
--- OUTSIDE RECORDS SUMMARY | 2022-05-26 08:36 | XMS_ITS | Encounter Summary ---
:1945 Author Organization [facility] Address [address] [place] [id number] Care Team Providers Name Role Phone Brianna Rios MD Unavailable No Ref-Primary, Physician Primary Care Provider [phone] Guerda Aguilar MD Primary Care Provider [phone] Reason for Visit Auth/Cert Specialty Diagnoses / Procedures Referred By Contact Refer red To Contact Oncology Diagnoses Gross hematuria Gross hematuria [address] [facility] [address] , [place] [address] [address] [place] [phone] Phone: Referral ID Status Reason Start Date Expiration Date Visits Requ ested Visits Authorized [id number] 1 1 Encounter Details Date Type Department Care Team Description 04/23/2022 - Hospital Encounter [facility] Maxim Abraham MD [address] [id number] 04/25/2022 [facility] Ramiro Iglesias DO [address] [id number] [address] Nely Lenz Sujatha, MD [address] [id number] [place] [id number] Social History Tobacco Use Types Packs/Day Years Used Date Smoking Tobacco: Never Assessed Sex Assigned at Date Recorded Not on file documented as of this encounter Last Filed Vital Signs Vital Sign Reading Time Taken Comments Blood Pressure 139/66 04/25/2022 8:14 AM CDT Pulse 61 04/25/2022 8:14 AM CDT Temperature 36.7 ??C (98 ??F) 04/25/2022 8:14 AM CDT Respiratory Rate 16 04/25/2022 8:14 AM CDT Oxygen Saturation 95% 04/25/2022 8:14 AM CDT Inhaled Oxygen Concentration - - Weight - - Height 175.3 cm (5' 9) 04/23/2022 5:00 PM CDT Body Mass Index - - documented in this encounter Discharge Summaries Rachael Mckay MD - 04/25/2022 10:56 AM CDT [facility] Hospitalist Discharge Summary Date of Admission: 04/23/2022 Date of Discharge: 04/25/2022 Discharging Provider: Maxx Grove CNP Discharge Service: Hospitalist Service Discharge Diagnoses Gross Hematuria Follow-ups Needed After Discharge Follow-up Appointments Follow-up and recommended labs and tests Follow up with your urologist Unresulted Labs Ordered in the Past 30 Days of this Admission No orders found from 03/24/2022 to 04/24/2022. Discharge Disposition Discharged to home Condition at discharge: Stable Hospital Course Juan Ibarra is a 76 year old male admitted on 04/23/22. He initially presented to an ED in [place], [place] for evaluation of gross hematuria. He was diagnosed with an intraluminal hemorrhage by CT Urogram and was started on continuous bladder irrigation. 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 He was transferred to [facility] for Urological Consultation. Gross Hematuria Admitted for intraluminal hemorrhage noted on CT Urogram. Images being uploaded into EMR. -Admit to IP -Urology consultation; appreciate recommendations: Ok for TOV after ambulating and remains clear to light pink. May have a diet at that time. Follow up PVR with 1st void. If >200cc, give a chance tovoid again. Call if persistently >200cc. Will need outpatient cysto with his regular urologist. -Will repeat labs: CBC, BMP to get admission baseline -Hgb 12.3 -Monitor VS--hemodynamically stable -Resume S[employer]ER finasteride and flomax -UA pending -Will defer antibiotics at this time, as no obvious signs infection -Monitor lytes and replete as needed; BMP, LFT's normal -INR 1.04 As per Urology Ok to follow up with out pt urology. No need for intervention in the hospital as hematuria is improving. 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 regimen: hydrochlorothiazide -Will hold diuretic while IP -Monitor VS -Consider initiation of PRN IV medications if SBP consistently >170 History DVT & PE (2016) -Noted history -Not currently on anticoagulation d/t history HHT Pulmonary Nodules -Incidental finding on CT Urogram from [place] -Noted few pulmonary micro nodules -Recommend OP CT imaging in 12 months Diet: regular DVT Prophylaxis: Pneumatic Compression Devices Gutierrez Catheter: PRESENT, indication: Gross Hematuria Central Lines: None Cardiac Monitoring: None Code Status: Full Code Consultations This Hospital Stay CARE MANAGEMENT / SOCIAL WORK IP CONSULT UROLOGY IP CONSULT Code Status Full Code Time Spent on this Encounter I, Maxx Grove CNP, personally saw the patient today and spent less than or equal to 30 minutesdischarging this patient. Maxx Grove CNP [place] [id number] ONCOLOGY [facility] [address] [facility] [address] Physical Exam Vital Signs: Temp: 98 ??F (36.7 ??C) Temp src: Oral BP: 139/66 Pulse: 61 Resp: 16 SpO2: 95 % O2 Device: None (Room air) Weight: 0 lbs 0 oz Constitutional: no distress, cooperative, alert, oriented, normal mood Cardiovascular: Regular rate and rhythm, no murmurs Respiratory: clear bilaterally, no crackles, wheezing or rales Gastrointestinal: Abdomen soft, non-tender. BS normal. No masses. Skin: warm, dry, intact, no edema Gu: Urine light pink Primary Care Physician Physician No Ref-Primary Discharge Orders Reason for your hospital stay Gross Hematuria Follow-up and recommended labs and tests Follow up with your urologist Activity Your activity upon discharge: activity as tolerated Diet Follow this diet upon discharge: Orders Placed This Encounter Regular Diet Adult Significant Results and Procedures Most Recent 3 CBC's:Recent Labs Lab Test 04/25/22 0641 04/24/22 0648 04/23/22 1804 WBC 4.6 6.3 6.9 HGB 12.2* 12.3* 13.0* MCV 104* 103* 103* PLT 231 228 258 Most Recent 3 BMP's:Recent Labs Lab Test 04/25/22 0951 04/24/22 0648 04/23/22 1804 NA -- 137 138 POTASSIUM 3.7 3.6 3.5 CHLORIDE -- 107 105 CO2 -- 23 26 BUN -- 17 19 CR -- 1.00 0.97 ANIONGAP -- 7 7 AJIT -- 8.7 8.7 GLC -- 111* 94 Most Recent 2 LFT's:Recent Labs Lab Test 04/23/22 1804 AST 17 ALT 18 ALKPHOS 60 BILITOTAL 0.7 Most Recent 3 INR's:Recent Labs Lab Test 04/23/22 1804 INR 1.04 Most Recent INR's and Anticoagulation Dosing History: Anticoagulation Dose History Recent Dosing and Labs Latest Ref Rng & Units 04/23/2022 INR 0.85 - 1.15 1.04 Most Recent 3 Creatinines:Recent Labs Lab Test 04/24/22 0648 04/23/22 1804 CR 1.00 0.97 Most Recent 3 Hemoglobins:Recent Labs Lab Test 04/25/22 0641 04/24/22 0648 04/23/22 1804 HGB 12.2* 12.3* 13.0* Most Recent 3 Troponin's:No lab results found. Most Recent 3 BNP's:No lab results found. Most Recent D-dimer:No lab results found. Most Recent Cholesterol Panel:No lab results found. 7-Day Micro Results No results found for the last 168 hours. Most Recent TSH and T4:No lab results found. Most Recent Hemoglobin A1c:No lab results found. Most Recent 6 glucoses:Recent Labs Lab Test 04/24/22 0648 04/23/22 1804 GLC 111* 94 Most Recent Urinalysis:Recent Labs Lab Test 04/24/22 2237 COLOR Straw APPEARANCE Clear URINEGLC Negative URINEBILI Negative URINEKETONE Negative SG 1.003 UBLD Large* URINEPH 7.0 PROTEIN Negative NITRITE Negative LEUKEST Small* RBCU 1 WBCU 4 Most Recent ABG:No lab results found. Most Recent ESR & CRP:No lab results found., No results found for this or any previous visit. Discharge Medications Current Discharge Medication List CONTINUE these medications which have NOT CHANGED Details [id number] D PO Take 1 tablet by mouth 2 times daily ferrous sulfate 325 (65 Fe) MG TBEC EC tablet Take 325 mg by mouth 2 times daily finasteride (PROSCAR) 5 MG tablet Take 5 mg by mouth daily hydrochlorothiazide (HYDRODIURIL) 25 MG tablet Take 1 tablet by mouth daily tamsulosin (FLOMAX) 0.4 MG capsule Take 0.4 mg by mouth 2 times daily Allergies Allergies Allergen Reactions ??? Citalopram Other (See Comments) Pain and sensitivity in genitals documented in this encounter Medications at Time of Discharge Medication Sig Dispensed Refills Start Date End Date [id number]-[id number] D PO Take 1 tablet by 0 mouth 2 times daily ferrous sulfate 325 (65 Fe) MG Take 325 mg by 0 1 TBEC EC tablet mouth 2 times daily finasteride (PROSCAR) 5 MG Take 5 mg by 0 022 tablet mouth daily hydrochlorothiazide Take 1 tablet by 0 12/20/2021 (HYDRODIURIL) 25 MG tablet mouth daily tamsulosin (FLOMAX) 0.4 MG Take 0.4 mg by 0 07/26 capsule mouth 2 times daily documented as of this encounter Progress Notes Roel Bird, RN - 04/25/2022 11:39 AM CDT Patient discharged from oncology unit with family ambulatory. Orientation:x4 Respirations status: WNL Ambulation status: independent Pain status:Denies VS: WNL PIV: Removed and dressed Discharge outcome: After visit summary provided and explained, patient verbalized understanding. Left the floor with all of his belongings and medications. Roel Bird RN - 04/25/2022 7:46 AM CDT Reason for admission: Initially presented to an ED in [place], [place] for evaluation of gross hematuria, and then transferred to [facility] for Urological Consultation. Procedure/s: CT Urogram, found to have intraluminal hemorrhage Mental Status: x4 Activity: Independent Diet: Regular Pain: Denies Urination: Continent, uses urinal Tele/Restraints/Iso: NA LDA: PIV SL Expected D/C Date: Probably today pending medical clearance. Other Info: Pt typically has intermittent epistaxis and occasional posterior pharyngeal bleeding hgb12.2, ptt 231. UA shows large blood inurine and few bacteria. Hx of DVT and PE, not currently on anticoagulation d/t history HHT. Maxx Grove CNP - 04/24/2022 10:15 AM CDT [facility] Medicine Progress Note - Hospitalist Service Date of Admission: 04/23/2022 Assessment & Plan Juan Ibarra is a 76 year old male admitted on 04/23/22. He initially presented to an ED in [place], [place] for evaluation of gross hematuria. He was diagnosed with an intraluminal hemorrhage by CT Urogram and was started on continuous bladder irrigation. 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 He was transferred to [facility] for Urological Consultation. Gross Hematuria Admitted for intraluminal hemorrhage noted on CT Urogram. Images being uploaded into EMR. -Admit to IP -Urology consultation; appreciate recommendations: Ok for TOV after ambulating and remains clear to light pink. May have a diet at that time. Follow up PVR with 1st void. If >200cc, give a chance tovoid again. Call if persistently >200cc. Will need outpatient cysto with his regular urologist. 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 -Typically has intermittent epistaxis and occasional posterior pharyngeal bleeding -Follows OP with Heme [place]--working on obtaining records -Hgb and PLT stable History Hypertension -SONG AND DANCE PERFORMER regimen: hydrochlorothiazide -Will hold diuretic while IP -Monitor VS -Consider initiation of PRN IV medications if SBP consistently >170 History DVT & PE (2016) -Noted history -Not currently on anticoagulation d/t history HHT Pulmonary Nodules -Incidental finding on CT Urogram from [place] -Noted few pulmonary micro nodules -Recommend OP CT imaging in 12 months Diet: NPO for Medical/Clinical Reasons Except for: Meds DVT Prophylaxis: Pneumatic Compression Devices Gutierrez Catheter: PRESENT, indication: Gross Hematuria Central Lines: None Cardiac Monitoring: None Code Status: Full Code Disposition Plan Expected Discharge Date: 04/25/2022 The patient's care was discussed with the Attending Physician, Dr. Mckay. Maxx Grove, [facility] Hospitalist Service [facility] Securely message with the [employer] [facility] Console (learn more here) Text page via [employer] Paging/Directory Clinically Significant Risk Factors Present on Admission Interval History -patient gutierrez still bloody... ?? Data reviewed today: I reviewed all medications, new labs and imaging results over the last 24 hours. I personally reviewed Physical Exam Vital Signs: Temp: 98 ??F (36.7 ??C) Temp src: Oral BP: (!) 141/79 Pulse: 65 Resp: 16 SpO2: 97 % O2 Device: None (Room air) Weight: 0 lbs 0 oz Constitutional: no distress, cooperative, alert, oriented, normal mood Cardiovascular: Regular rate and rhythm, no murmurs Respiratory: clear bilaterally, no crackles, wheezing or rales Gastrointestinal: Abdomen soft, non-tender. BS normal. No masses. Skin: warm, dry, intact, no edema : gutierrez in place bloody urine Data Recent Labs Lab 04/24/22 0648 04/23/22 1804 WBC 6.3 6.9 HGB 12.3* 13.0* MCV 103* 103* PLT 228 258 INR -- 1.04 NA 137 138 POTASSIUM 3.6 3.5 CHLORIDE 107 105 CO2 23 26 BUN 17 19 CR 1.00 0.97 ANIONGAP 7 7 AJIT 8.7 8.7 GLC 111* 94 ALBUMIN -- 3.5 PROTTOTAL -- 7.6 BILITOTAL -- 0.7 ALKPHOS -- 60 ALT -- 18 AST -- 17 No results found for this or any previous visit (from the past 24 hour(s)). Medications ??? ferrous sulfate 325 mg Oral BID ??? finasteride 5 mg Oral Daily ??? sodium chloride (PF) 3 mL Intracatheter Q8H ??? tamsulosin 0.4 mg Oral BID Associated attestation - Rachael Mckay MD - 04/24/2022 12:44 PM CDT Physician Attestation I have reviewed and discussed with the advanced practice provider their history, physical and plan for Juan Ibarra. I did not participate in a shared visit by interviewing or examining the patient andthis should be billed as an advanced practice provider only visit. Rachael Mckay MD Date of Service (when I saw the patient): I did not personally see this patient today. Erin Golden PA-C - 04/24/2022 7:37 AM CDT [facility] Urology Progress Note Assessment and Plan: Active Problems: Gross hematuria, BPH w/ LUTS Assessment: Improved Plan: Ok for TOV after ambulating and remains clear to light pink. May have a diet at that time. Follow up PVR with 1st void. If >200cc, give a chance to void again. Call if persistently >200cc. Will need outpatient cysto with his regular urologist. ADDENDUM: Discussed progress with RN. Voiding well, hematuria persists and will have outpatient cysto as planned with his [place] urologist. Can stop routine bladder scans. Push PO hydration. Will sign off. Please call if urologic issues arise. Erin Golden PA-C [facility] Urology [phone] Securely message with the [employer] [facility] Console Friday-Friday and Friday Interval History: doing well. Gutierrez clear in tubing on slow gtt. Medications: Current Facility-Administered Medications Ordered in Epic Medication Dose Route Frequency Last Rate Last Admin ??? acetaminophen (TYLENOL) tablet 650 mg 650 mg Oral Q6H PRN Or ??? acetaminophen (TYLENOL) Suppository 650 mg 650 mg Rectal Q6H PRN ??? bisacodyl (DULCOLAX) suppository 10 mg 10 mg Rectal Daily PRN ??? ferrous sulfate (FEROSUL) tablet 325 mg 325 mg Oral BID 325 mg at 04/23/229 ??? finasteride (PROSCAR) tablet 5 mg 5 mg Oral Daily ??? lidocaine (LMX4) cream Topical Q1H PRN ??? lidocaine 1 % 0.1-1 mL 0.1-1 mL Other Q1H PRN ??? melatonin tablet 1 mg 1 mg Oral At Bedtime PRN ??? naloxone (NARCAN) injection 0.2 mg 0.2 mg Intravenous Q2 Min PRN Or ??? naloxone (NARCAN) injection 0.4 mg 0.4 mg Intravenous Q2 Min PRN Or ??? naloxone (NARCAN) injection 0.2 mg 0.2 mg Intramuscular Q2 Min PRN Or ??? naloxone (NARCAN) injection 0.4 mg 0.4 mg Intramuscular Q2 Min PRN ??? ondansetron (ZOFRAN ODT) ODT tab 4 mg 4 mg Oral Q6H PRN Or ??? ondansetron (ZOFRAN) injection 4 mg 4 mg Intravenous Q6H PRN ??? oxyCODONE IR (ROXICODONE) half-tab 2.5 mg 2.5 mg Oral Q4H PRN ??? senna-docusate (SENOKOT-S/PERICOLACE) 8.6-50 MG per tablet 1 tablet 1 tablet Oral BID PRN Or ??? senna-docusate (SENOKOT-S/PERICOLACE) 8.6-50 MG per tablet 2 tablet 2 tablet Oral BID PRN ??? sodium chloride (PF) 0.9% PF flush 3 mL 3 mL Intracatheter Q8H 3 mL at 04/24/22 0140 ??? sodium chloride (PF) 0.9% PF flush 3 mL 3 mL Intracatheter q1 min prn ??? tamsulosin (FLOMAX) capsule 0.4 mg 0.4 mg Oral BID 0.4 mg at 04/23/22 2159 No current [facility] outpatient medications on file. Physical Exam: Vitals were reviewed Patient Vitals for the past 8 hrs: BP Temp Temp src Pulse Resp SpO2 04/24/22 0132 126/68 98.2 ??F (36.8 ??C) Oral 57 16 96 % GEN: NAD, lying in bed EYES: EOMI : Clear with clamping at 720am Data: No results found for: NTBNPI, NTBNP Lab Results Component Value Date WBC 6.3 04/24/2022 WBC 6.9 04/23/2022 HGB 12.3 (L) 04/24/2022 HGB 13.0 (L) 04/23/2022 HCT 37.1 (L) 04/24/2022 HCT 39.4 (L) 04/23/2022 MCV 103 (H) 04/24/2022 MCV 103 (H) 04/23/2022 PLT 228 04/24/2022 PLT 258 04/23/2022 Lab Results Component Value Date INR 1.04 04/23/2022 documented in this encounter H&P Notes Carleen Rosas NP - 04/23/2022 1:22 PM CDT [facility] History and Physical - Hospitalist Service Date of Admission: 04/23/22 Assessment & Plan Juan Ibarra is a 76 year old male admitted on 04/23/22. He initially presented to an ED in [place], [place] for evaluation of gross hematuria. He was diagnosed with an intraluminal hemorrhage by CT Urogram and was started on continuous bladder irrigation. 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 He was transferred to [facility] for Urological Consultation. Gross Hematuria Admitted for intraluminal hemorrhage noted on CT Urogram. Images being uploaded into EMR. -Admit to IP -Urology consultation; appreciate recommendations -Discussed with Dr. Benitez, Urology who will review images and provide further recommendations; keep NPO for now -Resume continuous bladder irrigation -Will repeat labs: CBC, BMP to get admission baseline -Will monitor Hgb closely; was 13.1 at outside facility -Repeat Hgb on admit 13.0 -Type and screen pending -Blood consent discussed with patient, signed and placed on chart -Monitor VS--hemodynamically stable -NPO--if no intervention tonight, may have diet -Resume [employer]ANCE [employer]ER finasteride and flomax -UA pending -UA from [place] on 04/21 not consistent with infection -WBC 6.9--no leukocytosis and afebrile -Will defer antibiotics at this time, as no obvious signs infection -Monitor lytes and replete as needed; BMP, LFT's normal -INR 1.04 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 -Typically has intermittent epistaxis and occasional posterior pharyngeal bleeding -Follows OP with Heme at [place]--working on obtaining records -Hgb and PLT stable History Hypertension -SONG AND DANCE PERFORMER regimen: hydrochlorothiazide -Will hold diuretic while IP -Monitor VS -Consider initiation of PRN IV medications if SBP consistently >170 History DVT & PE (2016) -Noted history -Not currently on anticoagulation d/t history HHT Pulmonary Nodules -Incidental finding on CT Urogram from [place] -Noted few pulmonary micro nodules -Recommend OP CT imaging in 12 months Diet: NPO for Medical/Clinical Reasons Except for: Meds DVT Prophylaxis: Pneumatic Compression Devices Gutierrez Catheter: PRESENT, indication: Gross Hematuria Central Lines: None Cardiac Monitoring: None Code Status: Full Code Clinically Significant Risk Factors Present on Admission Disposition Plan TBD, pending clinical course. Likely 2 or greater midnight stay for Urological consultation and possible need for surgical intervention. The patient's care was discussed with the Patient. Carleen Rosas NP [facility] Securely message with the [employer] [facility] Console (learn more here) Text page via [employer] Paging/Directory Chief Complaint Gross hematuria History obtained from patient and EMR. History of Present Illness Juan Ibarra is a 76 year old male who presented to the ED in [place], [place] for evaluation of bloodin his urine. His PMH includes BPH, hereditary hemorrhagic telangectasis, hypertension, and anemia. He also has a hx of an acute pulmonary emoboli as well as a DVT. He was diagnosed with an intraluminal hemorrhage by CT Urogram and was started on continuous bladder irrigation. He was transferred here for Urological Consultation. The patient is resting in bed. Paper records placed in physical chart were reviewed. Patient reportsthat he began having symptoms on 04/21 (Friday) when he began to notice issues with voiding. States that he got up around 0730 and urinated and then went to taoist. When he got back home, he found that he was unable to urinate, despite the urge to void and noticed that he had blood coming out. He has not had this happen previously. He has a history of BPH and is currently on finasteride and flomax. Hewent to the ED at [place]. Gutierrez catheter was placed and 600 ml of urine was obtained with gross hematuria noted. UA was sent and was not consistent with infection. His baseline Hgb is around 12.7 and his Hgb was just over 12 while at [place]. CBI was initiated and urine continued to be red after [address] Dela Cruz, Urologist from [facility] was consulted at that time and recommendedovernight CBI with a CT urogram. If the urine cleared, CBI could be stopped and it would be recommended for the patient to keep the gutierrez in place and follow-up OP with Urology. If the urine remained bloody, it was recommended to be transferred to a facility with Urology capability. The patient was admitted to [place] at that time. CT Urogram was performed and demonstrated material within the urinary bladder noted on the excretoryphage images which may reflect intraluminal hemorrhage. Urinary bladder was decompressed, no urinarycalculi and a few sub cm low-density renal lesions which are too small to characterize may reflect small cysts; no definite solid enhancing renal mass. No mass involving the renal collecting systems, cholelithiasis and a few pulmonary micro nodules which were incidental findings. Due to ongoing CT findings and ongoing hematuria, the patient was transferred to [facility] for Urology consultation. The patient is a non-smoker. He does endorse alcohol intake of at least 1-3 drinks, nightly. He has not had withdrawal symptoms previoulsy. He is hemodynamically stable. No leukocytosis and afebrile. UA not consistent with infection. He endorses that he does feel bladder spasms when he sits on the comm ode, otherwise he denies any pain. Denies chest pain/pressure and SOB. Denies fever, chills and bodyaches. Denies abdominal, flank or pelvic pain. Reports BLE edema with L>R. Medication list and code status reviewed. Denies further complaints. Review of Systems The 10 point Review of Systems is negative other than noted in the HPI or here. Past Medical History I have reviewed this patient's medical history and updated it with pertinent information if needed. BPH Acute Pulmonary Emobolism DVT Hereditary Hemorrhagic Telangiectasia Hypertension Iron Deficiency Anemia Past Surgical History I have reviewed this patient's surgical history and updated it with pertinent information if needed. Appendectomy Right Inguinal Repair Social History I have reviewed this patient's social history and updated it with pertinent information if needed. Family History -Father has HHT Prior to Admission Medications Prior to Admission Medications Prescriptions Last Dose Informant Patient Reported? Taking? [id number]-[id number] D PO 04/21/2022 at am Yes Yes Sig: Take 1 tablet by mouth 2 times daily ferrous sulfate 325 (65 Fe) MG TBEC EC tablet 04/21/2022 at am Yes Yes Sig: Take 325 mg by mouth 2 times daily finasteride (PROSCAR) 5 MG tablet 04/21/2022 at am Yes Yes Sig: Take 5 mg by mouth daily hydrochlorothiazide (HYDRODIURIL) 25 MG tablet 04/21/2022 at am Yes Yes Sig: Take 1 tablet by mouth daily tamsulosin (FLOMAX) 0.4 MG capsule 04/21/2022 at am Yes Yes Sig: Take 0.4 mg by mouth 2 times daily Facility-Administered Medications: None Allergies Allergies Allergen Reactions ??? Citalopram Other (See Comments) Pain and sensitivity in genitals Physical Exam EXAM: BP (!) 156/76 (BP Location: Left arm) Pulse 58 Temp 98.6 ??F (37 ??C) (Oral) Resp 16 Ht 1.753 m (5' 9) SpO2 98% General: Appears stated age, no acute distress. A&O x 3. Skin: Warm, dry. No rashes or lesions on exposed skin. HEENT: Normocephalic, atraumatic; EOMs grossly intact. Neck: Supple. Chest: Breath sounds CTA and no increased work of breathing on room air. Cardiovascular: RRR, no rub or murmur. Trace BLE with L>R. Abdomen: Soft, non-tender, non-distended. : Gutierrez catheter in place draining red colored urine. No bladder tenderness. No CVA tenderness. Musculoskeletal: Moves all four extremities. No muscle atrophy. Neurological: CN 2-12 grossly intact. Psychiatric: Affect and mood congruent. Data Data reviewed today: I reviewed all medications, new labs and imaging results over the last 24 hours. I personally reviewed -Repeat labs currently pending Associated attestation - Ramiro Iglesias DO - 04/26/2022 9:48 AM CDT Physician Attestation I have reviewed and discussed with the advanced practice provider their history, physical and plan for Juan Ibarra. I did not participate in a shared visit by interviewing or examining the patient andthis should be billed as an advanced practice provider only visit. Ramiro Iglesias DO Date of Service (when I saw the patient): I did not personally see this patient today. documented in this encounter Consult Notes Estrella Chavez RN - 04/25/2022 11:00 AM CDTAssociated Order(s): CARE MANAGEMENT / SOCIAL WORK IP CONSULT Care Management Initial Consult General Information Assessment completed with: Patient, Type of CM/SW Visit: Initial Assessment Primary Care Provider verified and updated as needed: Yes Readmission within the last 30 days: no previous admission in last 30 days Reason for Consult: discharge planning Communication Assessment Patient's communication style: spoken language (Citizen Of [place] or Bilingual) Hearing Difficulty or Deaf: no Wear Glasses or Blind: yes Cognitive Cognitive/Neuro/Behavioral: WDL Living Environment: People in home: alone Current living Arrangements: other (see comments) ([facility]) Able to return to prior arrangements: yes Family/Social Support: Care provided by: self Provides care for: no one Marital Status: Single Other (specify) (Friends) Description of Support System: Supportive Current Resources: Patient receiving home care services: No Community Resources: None Equipment currently used at home: none Supplies currently used at home: None Employment/Financial: Employment Status: retired Financial Concerns: No concerns identified Referral to Financial Worker: No Functional Status: Prior to admission patient needed assistance: Dependent ADLs:: Independent Dependent IADLs:: Independent Mental Health Status: Mental Health Status: No Current Concerns Chemical Dependency Status: Chemical Dependency Status: No Current Concerns Values/Beliefs: Spiritual, Cultural Beliefs, Rastafarian Practices, Values that affect care: no Additional Information: CM-RN met with pt at the bedside per consult. Introduced self and role in discharge planning. Juan lives alone in a [facility] and is a . He is retired and enjoys cooking. He is independent in ADLs and IALDs. Sites friends/[place] as sources of support in his life. Wants to manage hisown follow-up appointments. Verbally confirms he has [facility] contact info. PCP added to chart. Nodischarge needs identified. Estrella Chavez RN, BSN, PHN, CMSRN Care Coordination [facility] Wil Benitez MD - 04/23/2022 8:28 PM CDT Consult Date: 04/23/2022 REASON FOR CONSULTATION: Gross hematuria. HISTORY OF PRESENT ILLNESS: I was consulted this evening on Juan Ibarra. He is a 76-year-old gentleman who was transferred here this evening from [facility]. I was not made aware of his transfer before being consulted about an hour ago after the patient had arrived. Most of my history was taken from the patient, but some from looking at Care Everywhere from the [facility]. He presented to [facility] 2 days ago with gross hematuria. He does have a prior urologic history of enlarged prostate. He has seen a urologist at the [facility] once and currently takes Flomax and finasteride. He says his symptoms are generally well controlled on these medications. He has no prior history of gross hematuria. He presented to the Emergency Department 2 days ago at [facility] with spontaneous gross hematuria and urinary retention. He had a Gutierrez catheter placed. He had aCT urogram performed that showed a moderate sized hematoma in the bladder. The patient then states that he was at the hospital at [place] for 2 days with continuous bladder irrigation and then was transferred here. He says that the catheter was never hand irrigated. He says he never saw a urologistat [facility]. PAST MEDICAL HISTORY: Enlarged prostate, hypertension, history of DVT and PE, but not currently anticoagulated. PAST SURGICAL HISTORY: No prior urologic surgery. He has not had a prior cystoscopy. HOME MEDICATIONS: Flomax, finasteride, hydrochlorothiazide. SOCIAL HISTORY: He is a nonsmoker. FAMILY HISTORY: No family history of urologic history or stones. REVIEW OF SYSTEMS: Positive for the hematuria only. He has otherwise felt well. No fevers, chills, nausea, vomiting. No recent weight gain or weight loss. No shortness of breath. No chest pain. No abdominal pain, diarrhea, or constipation. No psychiatric changes. No visual changes. No musculoskeletal c omplaints. PHYSICAL EXAMINATION: VITAL SIGNS: He is currently afebrile. Vital signs stable. GENERAL: Alert and oriented, in no acute distress. HEENT: Head is normocephalic, atraumatic. LUNGS: Normal nonlabored breathing. ABDOMEN: Soft, nontender, nondistended. GENITOURINARY: When I entered the room, he had continuous bladder irrigation going at a slow drip and the urine was a very light pink. I temporarily stopped the irrigation and hand irrigated the patient. I got back some pink urine and may be a few wispy small clots, but the irrigation was overall clear after irrigating with half a liter of sterile water. I placed the patient back to down drain and back on continuous irrigation. IMAGING STUDIES: I was able to review his CT scan images from [facility]. The upper urinarytracts appeared normal. There is a moderate-sized hematoma in the bladder. The CT scan was from 2 days ago. The Gutierrez catheter was in the bladder in good position. IMPRESSION AND PLAN: A 76-year-old gentleman with gross hematuria that appears to be improved. With hand irrigation at the bedside, it was quickly able get his urine clear. We will leave him on continuous bladder irrigation slow drip overnight. If the urine remains clear or light pink tomorrow morning, he can have his catheter removed and discharged home. He was advised that he will require a cystoscopy in order to proceed with his gross hematuria evaluation. He will likely do this with his urologist at the [facility] and says he has an upcoming appointment at the [facility]. Wil Benitez MD MT: [place]ERNON Name: JUAN IBARRA MRN: [id number] Account: [id number] : 1945 Consult Date: 04/23/2022 Document: [id number] documented in this encounter Miscellaneous Notes Plan of Care - Yuliya Nguyen RN - 04/25/2022 5:39 AM CDT Goal Outcome Evaluation: Pt is AO x4. VSS on RA. Denies pain. Pt reported mild epistaxis at start of shift, resolved on it's own. Tolerating reg diet. Up ind in room, ambulates in halls. Continent b/b. Voiding adequately, clear pink color. Urine sample obtained. L PIV SL. Plan is to discharge tomorrow and follow up w/ outpatient urology. Plan of Care - Divya Adams RN - 04/24/2022 5:46 PM CDT Goal Outcome Evaluation: A/O x4. VSS on RA. Reg diet. Independent. Ambulating in halls throughout the day. Gutierrez removed. Denies pain. Voiding adequately- clear pink color. Plan is to discharge tomorrow and follow up w/ outpatient urology. Utilization Review - Ronak Paul DO - 04/24/2022 2:50 PM CDT Admission Status; Secondary Review Determination Admission Date: 04/23/2022 5:32 PM Under the authority of the Utilization Management Committee, the utilization review process indicated a secondary review on the above patient. The review outcome is based on review of the medical records, discussions with staff, and applying clinical experience noted on the date of the review. (x) Inpatient Status Appropriate - This patient's medical care is consistent with medical managementfor inpatient care and reasonable inpatient medical practice. () Observation Status Appropriate - This patient does not meet hospital inpatient criteria and is placed in observation status. If this patient's primary payer is Medicare and was admitted as an inpatient, Condition Code 44 should be used and patient status changed to observation. () Admission Status NOT Appropriate - This patient's medical care is not consistent with medical management for Inpatient or Observation Status. RATIONALE FOR DETERMINATION Juan Ibarra is a 76 year old male with a past medical history significant for BPH, hereditary hemorrhagic telangectasis, hypertension, and anemia. He had presented to an outside hospital for hematuria. Transferred to [facility] for further evaluation by urology. Initially required con tinuous bladder irrigation. Overall, he has required a prolonged hospital stay. Due to this patient's advanced age, complex past medical history, hematuria, need for continuous bladder irrigation, and need for a prolonged hospital stay, it is appropriate to have him admitted to the hospital as an inpatient. The severity of illness, intensity of service provided, expected LOS and risk for adverse outcome make the care complex, high risk and appropriate for hospital admission. The information on this document is developed by the utilization review team in order for the business office to ensure compliance. This only denotes the appropriateness of proper admission status and does not reflect the quality of care rendered. The definitions of Inpatient Status and Observation Status used in making the determination above are those provided in the CMS Coverage Manual, Chapter 1 and Chapter 6, section 70.4. Sincerely, Ronak Paul D.O. Utilization Review/ Case Management [facility]. Plan of Care - Shirin Qureshi RN - 04/24/2022 6:37 AM CDT Goal Outcome Evaluation: Pt A&O x 4, VSS on RA. Pt denies any acute discomfort. Dr Benitez from Urology came to see pt and performed hand irrigation(see note). Pt was provided a courtesy meal and then resumed NPO status at midnight in case of urology procedure today. CBI continued on slow-moderate rate, watermelon/cherryoutput, a few clots noted in output. L PIV SL. Ambulated around the unit x 1 with SBA. Possible discharge home today per urology, pending gutierrez removal and TOV. Plan of Care - Jaelyn Garcia - 04/23/2022 7:42 PM CDT Goal Outcome Evaluation: Pt transferred from [facility] around 1745. VSS, ex some HTN. Denies pain. LS clear. BS active, reports BM today. CBI running at slow-moderate rate, no clots noted, draining adequately, cherrycolored UOP. Urology consulted, awaiting CT urogram results to be uploaded. PIV SL. Up with SBA. Discharge pending. Pharmacy-Admission Medication History - IvanFelecia RP - 04/23/2022 5:59 PM CDT Pharmacy Medication History Admission medication history interview status for the 04/23/2022 admission is complete. See [facility] admission [facility]igator for prior to admission medications Location of Interview: Patient room Medication history sources: Patient, Surescripts and Care Everywhere Significant changes made to the medication list: Modified iron Removed oxycodone Added calcium/mg/vitd, tamsulosin, finasteride, hctz In the past week, patient estimated taking medication this percent of the time: 50-90% due to illness Additional medication history information: Pt states he was not started on an antibiotic at [facility] Medication reconciliation completed by provider prior to medication history? Yes Time spent in this activity: 15 minutes Prior to Admission medications Medication Sig Last Dose Taking? Auth Provider Water Resource Specialist End Date ZSDZOLD-SGLGOWHVD-APOPAPO D PO Take 1 tablet by mouth 2 times daily 04/21/2022 at am Yes Unknown, Entered By History ferrous sulfate 325 (65 Fe) MG TBEC EC tablet Take 325 mg by mouth 2 times daily 04/21/2022 at am YesReported, Patient finasteride (PROSCAR) 5 MG tablet Take 5 mg by mouth daily 04/21/2022 at am Yes Unknown, Entered By History hydrochlorothiazide (HYDRODIURIL) 25 MG tablet Take 1 tablet by mouth daily 04/21/2022 at am Yes Unknown, Entered By History Yes tamsulosin (FLOMAX) 0.4 MG capsule Take 0.4 mg by mouth 2 times daily 04/21/2022 at am Yes Unknown, Entered By History The information provided in this note is only as accurate as the sources available at the time of update(s) documented in this encounter Plan of Treatment Not on filedocumented as of this encounter Procedures Procedure Name Priority Date/Time Associated Comments Diagnosis POTASSIUM Routine 04/25/2022 9:51 AM Results f or this CDT procedure are i n the results section. MAGNESIUM Routine 04/25/2022 9:51 AM Results f or this CDT procedure are i n the results section. CBC WITH PLATELETS Routine 04/25/2022 6:41 AM Res ults for this CDT procedure are i n the results section. UA MACROSCOPIC WITH Routine 04/24/2022 10:37 Resu lts for this REFLEX TO MICRO AND PM CDT procedur e are in CULTURE the results section. CBC WITH PLATELETS AND Routine 04/24/2022 6:48 AM Results for this DIFFERENTIAL CDT procedure are i n the results section. CBC WITH PLATELETS & Routine 04/24/2022 6:48 AM R esults for this DIFFERENTIAL CDT procedure are i n the results section. BASIC METABOLIC PANEL Routine 04/24/2022 6:48 AM Results for this CDT procedure are i n the results section. PARTIAL THROMBOPLASTIN STAT 04/23/2022 10:24 R esults for this TIME PM CDT procedure are i n the results section. EXTRA TUBE Routine 04/23/2022 6:04 PM Results f or this CDT procedure are i n the results section. EXTRA RED TOP TUBE Routine 04/23/2022 6:04 PM Res ults for this CDT procedure are i n the results section. CBC WITH PLATELETS AND STAT 04/23/2022 6:04 PM Results for this DIFFERENTIAL CDT procedure are i n the results section. TYPE AND SCREEN, ADULT STAT 04/23/2022 6:04 PM Results for this CDT procedure are i n the results section. CBC WITH PLATELETS & STAT 04/23/2022 6:04 PM R esults for this DIFFERENTIAL CDT procedure are i n the results section. INR STAT 04/23/2022 6:04 PM Results f or this CDT procedure are i n the results section. COMPREHENSIVE METABOLIC STAT 04/23/2022 6:04 PM Results for this PANEL CDT procedure are i n the results section. ABO/RH TYPE AND SCREEN STAT 04/23/2022 6:04 PM Results for this CDT procedure are i n the results section. documented in this encounter Results Potassium (04/25/2022 9:51 AM CDT) athologist Signature Potassium 3.7 3.4 - 5.3 04/25/2022 LABORATORY mmol/L 10:54 AM CDT Specimen Anatomical Collection Method / Collection Time Recei jazzmine Time (Source) Location / Volume Laterality Blood STRUCTURE OF LEFT Venipuncture / 04/25/2022 9:51 04/25 UPPER LIMB / Unknown AM CDT 10:28 AM CDT Unknown Rachael Mckay MD LAB - BLOOD ORDERABLES Performing Organization Address City/State/ZIP Code Phon [place] [address] Care [facility] [address] 1[address] floor, Room [address] (ABNORMAL) Magnesium (04/25/2022 9:51 AM CDT) athologist Signature Magnesium 2.4 (H) 1.6 - 2.3 04/25/2022 LABORATORY mg/dL 10:56 AM CDT Specimen Anatomical Collection Method / Collection Time Recei jazzmine Time (Source) Location / Volume Laterality Blood STRUCTURE OF LEFT Venipuncture / 04/25/2022 9:51 04/25 UPPER LIMB / Unknown AM CDT 10:28 AM CDT Unknown Rachael Mckay MD LAB - BLOOD ORDERABLES Performing Organization Address City/State/ZIP Code Phon e Number LABORATORY [place] [address] Care Lab [address] 1[address], Room [address]B (ABNORMAL) CBC with platelets (04/25/2022 6:41 AM CDT) [facility] Method Time Signature WBC Count 4.6 4.0 - 11.0 04/25/2022 LABORATORY 10e3/uL 7:29 AM CDT RBC Count 3.57 (L) 4.40 - 04/25/2022 LABORATORY 5.90 7:29 AM CDT 10e6/uL Hemoglobin 12.2 (L) 13.3 - 04/25/2022 LABORATORY 17.7 g/dL 7:29 AM CDT Hematocrit 37.0 (L) 40.0 - 04/25/2022 LABORATORY 53.0 % 7:29 AM CDT MCV 104 (H) 78 - 100 04/25/2022 LABORATORY fL 7:29 AM CDT MCH 34.2 (H) 26.5 - 04/25/2022 LABORATORY 33.0 pg 7:29 AM CDT MCHC 33.0 31.5 - 04/25/2022 LABORATORY 36.5 g/dL 7:29 AM CDT RDW 14.1 10.0 - 04/25/2022 LABORATORY 15.0 % 7:29 AM CDT Platelet Count 231 150 - 450 04/25/2022 LABORATORY 10e3/uL 7:29 AM CDT Specimen Anatomical Collection Method / Collection Time Recei jazzmine Time (Source) Location / Volume Laterality Blood STRUCTURE OF RIGHT Venipuncture / 04/25/2022 6:41 09/2 03/2022 7:26 UPPER LIMB / Unknown AM CDT AM CDT Unknown Rachael Mckay MD LAB - BLOOD ORDERABLES Performing Organization Address City/State/ZIP Code Phon e Number LAB[place]ATORY [place] [address] Care Lab [address] 1[address] floor, Room [address]B (ABNORMAL) UA reflex to Microscopic and Culture (04/24/2022 10:37 PM CDT) [facility] Method Time Signature Color Urine Straw Colorless, 04/24/2022 LABORATORY Straw, Light 10:55 PM Yellow, CDT Yellow Appearance Urine Clear Clear 04/24/2022 LABORATOR Y 10:55 PM CDT Glucose Urine Negative Negative 04/24/2022 LABORATORY mg/dL 10:55 PM CDT Bilirubin Urine Negative Negative 04/24/2022 LABORATORY 10:55 PM CDT Ketones Urine Negative Negative 04/24/2022 LABORATORY mg/dL 10:55 PM CDT Specific [place] 1.003 1.003 - 04/24/2022 LABORATOR Y Urine 1.035 10:55 PM CDT Blood Urine Large (A) Negative 04/24/2022 LABORATORY 10:55 PM CDT pH Urine 7.0 5.0 - 7.0 04/24/2022 LABORATORY 10:55 PM CDT Protein Albumin Negative Negative 04/24/2022 LABORATORY Urine mg/dL 10:55 PM CDT Urobilinogen Normal Normal, 2.0 04/24/2022 LABORATORY Urine mg/dL 10:55 PM CDT Nitrite Urine Negative Negative 04/24/2022 LABORATORY 10:55 PM CDT Leukocyte Small (A) Negative 04/24/2022 LABORATORY Esterase Urine 10:55 PM CDT Bacteria Urine Few (A) None Seen 04/24/2022 LABORATORY /HPF 10:55 PM CDT RBC Urine 1 <=2 /HPF 04/24/2022 LABORATORY 10:55 PM CDT WBC Urine 4 <=5 /HPF 04/24/2022 LABORATORY 10:55 PM CDT Specimen Anatomical Collection Method Collection Time Receive d Time (Source) Location / / Volume Laterality Urine MID-STREAM URINE Non-blood 04/24/2022 10:37 022 SPECIMEN / Unknown Collection / PM CDT 10:44 PM CDT Unknown Narrative LABORATORY - 04/24/2022 10:55 PM CDT Urine Culture not indicated Carleen Rosas NP LAB - URINE ORDERABLES Performing Organization Address City/State/ZIP Code Phon e Number [place]ATORY [place] [address] [phone] Care Lab [address] 1[address], Room 20B (ABNORMAL) CBC with platelets and differential (04/24/2022 6:48 AM CDT) [facility] Method Time Signature WBC Count 6.3 4.0 - 04/24/2022 LABORATORY 11.0 7:10 AM CDT 10e3/uL RBC Count 3.59 (L) 4.40 - 04/24/2022 LABORATORY 5.90 7:10 AM CDT 10e6/uL Hemoglobin 12.3 (L) 13.3 - 04/24/2022 LABORATORY 17.7 g/dL 7:10 AM CDT Hematocrit 37.1 (L) 40.0 - 04/24/2022 LABORATORY 53.0 % 7:10 AM CDT MCV 103 (H) 78 - 100 04/24/2022 LABORATORY fL 7:10 AM CDT MCH 34.3 (H) 26.5 - 04/24/2022 LABORATORY 33.0 pg 7:10 AM CDT MCHC 33.2 31.5 - 04/24/2022 LABORATORY 36.5 g/dL 7:10 AM CDT RDW 14.2 10.0 - 04/24/2022 LABORATORY 15.0 % 7:10 AM CDT Platelet Count 228 150 - 450 04/24/2022 LABORATORY 10e3/uL 7:10 AM CDT % Neutrophils 75 % 04/24/2022 LABORATORY 7:10 AM CDT % Lymphocytes 15 % 04/24/2022 LABORATORY 7:10 AM CDT % Monocytes 7 % 04/24/2022 LABORATORY 7:10 AM CDT % Eosinophils 2 % 04/24/2022 LABORATORY 7:10 AM CDT % Basophils 0 % 04/24/2022 LABORATORY 7:10 AM CDT % Immature 1 % 04/24/2022 LABORATORY Granulocytes 7:10 AM CDT NRBCs per 100 0 <1 /100 04/24/2022 LABORATORY WBC 7:10 AM CDT Absolute 4.8 1.6 - 8.3 04/24/2022 LABORATORY Neutrophils 10e3/uL 7:10 AM CDT Absolute 0.9 0.8 - 5.3 04/24/2022 LABORATORY Lymphocytes 10e3/uL 7:10 AM CDT Absolute 0.5 0.0 - 1.3 04/24/2022 LABORATORY Monocytes 10e3/uL 7:10 AM CDT Absolute 0.1 0.0 - 0.7 04/24/2022 LABORATORY Eosinophils 10e3/uL 7:10 AM CDT Absolute 0.0 0.0 - 0.2 04/24/2022 LABORATORY Basophils 10e3/uL 7:10 AM CDT Absolute 0.0 <=0.4 04/24/2022 LABORATORY Immature 10e3/uL 7:10 AM CDT Granulocytes Absolute NRBCs 0.0 10e3/uL 04/24/2022 LABORATORY 7:10 AM CDT Specimen Anatomical Collection Method / Collection Time Recei jazzmine Time (Source) Location / Volume Laterality Blood STRUCTURE OF RIGHT Venipuncture / 04/24/2022 6:48 03/29 7:07 UPPER LIMB / Unknown AM CDT AM CDT Unknown Carleen Rosas NP LAB - BLOOD ORDERABLES Performing Organization Address City/State/ZIP Code Phon [place] [address] [phone] [facility] [address] 1[address], Room [address]B (ABNORMAL) Basic metabolic panel (04/24/2022 6:48 AM CDT) Analysis Performed At Patho logist Time Signature Sodium 137 133 - 144 04/24/2022 LABORATORY mmol/L 7:56 AM CDT Potassium 3.6 3.4 - 5.3 04/24/2022 LABORATORY mmol/L 7:56 AM CDT Chloride 107 94 - 109 04/24/2022 LABORATORY mmol/L 7:56 AM CDT Carbon Dioxide 23 20 - 32 04/24/2022 LABORATORY (CO2) mmol/L 7:56 AM CDT Anion Gap 7 3 - 14 04/24/2022 LABORATORY mmol/L 7:56 AM CDT Urea Nitrogen 17 7 - 30 04/24/2022 LABORATORY mg/dL 7:56 AM CDT Creatinine 1.00 0.66 - 04/24/2022 LABORATORY 1.25 mg/dL 7:56 AM CDT Calcium 8.7 8.5 - 10.1 04/24/2022 LABORATORY mg/dL 7:56 AM CDT Glucose 111 (H) 70 - 99 04/24/2022 LABORATORY mg/dL 7:56 AM CDT GFR Estimate 78 >60 04/24/2022 LABORATORY mL/min/1.7 7:56 AM CDT 3m2 Comment: Effective July 17, 2021 eGF Rcr in adults is calculated using the 2020 CKD-EPI creatinine equation which includ es age and gender (Robby et al., [place], DOI: 10.1056/UZYZnj3089346) Specimen Anatomical Collection Method / Collection Time Recei jazzmine Time (Source) Location / Volume Laterality Blood STRUCTURE OF RIGHT Venipuncture / 04/24/2022 6:48 03/29 7:07 UPPER LIMB / Unknown AM CDT AM CDT Unknown Carleen Rosas SUPERVISOR [facility] LAB - BLOOD ORDERABLES Performing Organization Address City/State/ZIP Code Phon e Number LABORATORY [place] [address] Care Lab [address] 1[address], Room 20B Partial thromboplastin time (04/23/2022 10:24 PM CDT) P athologist Signature aPTT 28 22 - 38 04/23/2022 LABORATORY Seconds 11:03 PM CDT Specimen Anatomical Collection Method / Collection Time Recei jazzmine Time (Source) Location / Volume Laterality Blood STRUCTURE OF RIGHT Venipuncture / 04/23/2022 10:24 UPPER LIMB / Unknown PM CDT 10:38 PM CDT Unknown Carleen Rosas SUPERVISOR [facility] LAB - BLOOD ORDERABLES Performing Organization Address City/State/ZIP Code Phon e Number LAB[place]ATORY [place] [address] Care Lab [address] 1[address] floor, Room 20B Extra Red Top Tube (04/23/2022 6:04 PM CDT) P athologist Signature Hold Specimen JIC 04/23/2022 LABORATORY 7:34 PM CDT Specimen Anatomical Collection Method / Collection Time Recei jazzmine Time (Source) Location / Volume Laterality Blood STRUCTURE OF RIGHT Venipuncture / 04/23/2022 6:04 0901/2022 6:16 UPPER LIMB / Unknown PM CDT PM CDT Unknown Erin Abraham MD LAB - BLOOD ORDERABLES Performing Organization Address City/State/ZIP Code Phon e Number LABORATORY [facility] [place] [address] [phone] Care Lab [address] 1[address] floor, Room 20B Adult Type and Screen (04/23/2022 6:04 PM CDT) [facility] Method Time Signature ABO/RH(D) A POS 04/23/2022 BLOOD 5:45 PM CDT BANK Antibody Negative Negative 04/23/2022 BLOOD Screen 5:45 PM CDT BANK SPECIMEN [id number] 04/23/2022 BLOOD EXPIRATION 5:45 PM CDT BANK DATE Specimen Anatomical Collection Method / Collection Time Recei jazzmine Time (Source) Location / Volume Laterality Blood BLOOD SPECIMEN / Venipuncture / 04/23/2022 6:04 2021 6:15 Unknown Unknown PM CDT PM CDT Carleen Rosas NP LAB - BLOOD BANK TEST ORDER Performing Organization Address City/State/ZIP Code Phon e Number BLOOD BANK [address] [place] [phone] (ABNORMAL) CBC with platelets and differential (04/23/2022 6:04 PM CDT) [facility] Method Time Signature WBC Count 6.9 4.0 - 04/23/2022 LABORATORY 11.0 6:19 PM CDT 10e3/uL RBC Count 3.82 (L) 4.40 - 04/23/2022 LABORATORY 5.90 6:19 PM CDT 10e6/uL Hemoglobin 13.0 (L) 13.3 - 04/23/2022 LABORATORY 17.7 g/dL 6:19 PM CDT Hematocrit 39.4 (L) 40.0 - 04/23/2022 LABORATORY 53.0 % 6:19 PM CDT MCV 103 (H) 78 - 100 04/23/2022 LABORATORY fL 6:19 PM CDT MCH 34.0 (H) 26.5 - 04/23/2022 LABORATORY 33.0 pg 6:19 PM CDT MCHC 33.0 31.5 - 04/23/2022 LABORATORY 36.5 g/dL 6:19 PM CDT RDW 14.4 10.0 - 04/23/2022 LABORATORY 15.0 % 6:19 PM CDT Platelet Count 258 150 - 450 04/23/2022 LABORATORY 10e3/uL 6:19 PM CDT % Neutrophils 74 % 04/23/2022 LABORATORY 6:19 PM CDT % Lymphocytes 15 % 04/23/2022 LABORATORY 6:19 PM CDT % Monocytes 10 % 04/23/2022 LABORATORY 6:19 PM CDT % Eosinophils 1 % 04/23/2022 LABORATORY 6:19 PM CDT % Basophils 0 % 04/23/2022 LABORATORY 6:19 PM CDT % Immature 0 % 04/23/2022 LABORATORY Granulocytes 6:19 PM CDT NRBCs per 100 0 <1 /100 04/23/2022 LABORATORY WBC 6:19 PM CDT Absolute 5.0 1.6 - 8.3 04/23/2022 LABORATORY Neutrophils 10e3/uL 6:19 PM CDT Absolute 1.0 0.8 - 5.3 04/23/2022 LABORATORY Lymphocytes 10e3/uL 6:19 PM CDT Absolute 0.7 0.0 - 1.3 04/23/2022 LABORATORY Monocytes 10e3/uL 6:19 PM CDT Absolute 0.1 0.0 - 0.7 04/23/2022 LABORATORY Eosinophils 10e3/uL 6:19 PM CDT Absolute 0.0 0.0 - 0.2 04/23/2022 LABORATORY Basophils 10e3/uL 6:19 PM CDT Absolute 0.0 <=0.4 04/23/2022 LABORATORY Immature 10e3/uL 6:19 PM CDT Granulocytes Absolute NRBCs 0.0 10e3/uL 04/23/2022 LABORATORY 6:19 PM CDT Specimen Anatomical Collection Method / Collection Time Recei jazzmine Time (Source) Location / Volume Laterality Blood STRUCTURE OF RIGHT Venipuncture / 04/23/2022 6:04 09/01/2022 6:15 UPPER LIMB / Unknown PM CDT PM CDT Unknown Carleen Rosas NP LAB - BLOOD ORDERABLES Performing Organization Address City/State/ZIP Code Phon e Number LABORATORY [place] [address] Care Lab [address] 1[address] floor, [address] INR (04/23/2022 6:04 PM CDT) athologist Signature INR 1.04 0.85 - 1.15 04/23/2022 LABORATORY 6:29 PM CDT Specimen Anatomical Collection Method / Collection Time Recei jazzmine Time (Source) Location / Volume Laterality Blood STRUCTURE OF RIGHT Venipuncture / 04/23/2022 6:04 03/29 6:15 UPPER LIMB / Unknown PM CDT PM CDT Unknown Carleen Rosas NP LAB - BLOOD ORDERABLES Performing Organization Address City/State/ZIP Code Phon e Number LABORATORY [place] [address] [phone] Care Lab [address] 1[address], [address] Comprehensive metabolic panel (04/23/2022 6:04 PM CDT) athologist Signature Sodium 138 133 - 144 04/23/2022 LABORATORY mmol/L 6:39 PM CDT Potassium 3.5 3.4 - 5.3 04/23/2022 LABORATORY mmol/L 6:39 PM CDT Chloride 105 94 - 109 04/23/2022 LABORATORY mmol/L 6:39 PM CDT Carbon Dioxide 26 20 - 32 04/23/2022 LABORATORY (CO2) mmol/L 6:39 PM CDT Anion Gap 7 3 - 14 04/23/2022 LABORATORY mmol/L 6:39 PM CDT Urea Nitrogen 19 7 - 30 04/23/2022 LABORATORY mg/dL 6:39 PM CDT Creatinine 0.97 0.66 - 04/23/2022 LABORATORY 1.25 mg/dL 6:39 PM CDT Calcium 8.7 8.5 - 10.1 04/23/2022 LABORATORY mg/dL 6:39 PM CDT Glucose 94 70 - 99 04/23/2022 LABORATORY mg/dL 6:39 PM CDT Alkaline 60 40 - 150 04/23/2022 LABORATORY Phosphatase U/L 6:39 PM CDT AST 17 0 - 45 U/L 04/23/2022 LABORATORY 6:39 PM CDT ALT 18 0 - 70 U/L 04/23/2022 LABORATORY 6:39 PM CDT Protein Total 7.6 6.8 - 8.8 04/23/2022 LABORATORY g/dL 6:39 PM CDT Albumin 3.5 3.4 - 5.0 04/23/2022 LABORATORY g/dL 6:39 PM CDT Bilirubin Total 0.7 0.2 - 1.3 04/23/2022 LABORATORY mg/dL 6:39 PM CDT GFR Estimate 81 >60 04/23/2022 LABORATORY mL/min/1.7 6:39 PM CDT 3m2 Comment: Effective July 17, 2021 eGF Rcr in adults is calculated using the 2020 CKD-EPI creatinine equation which includ es age and gender (Robby et al., NEJM, DOI: 10.1056/MYOYfa0813134) Specimen Anatomical Collection Method / Collection Time Recei jazzmine Time (Source) Location / Volume Laterality Blood STRUCTURE OF RIGHT Venipuncture / 04/23/2022 6:04 03/29 6:15 UPPER LIMB / Unknown PM CDT PM CDT Unknown Carleen Rosas NP LAB - BLOOD ORDERABLES Performing Organization Address City/State/ZIP Code Phon [place] [address] Care Lab [address], [address] documented in this encounter Visit Diagnoses Diagnosis Gross hematuria documented in this encounter Admitting Diagnoses Diagnosis Gross hematuria documented in this encounter Administered Medications Inactive Administered Medications - up to 3 most recent administrations Medication Order MAR Action Action Date Dose Rate Site acetaminophen (TYLENOL) Suppository 650 mg 650 mg, Rectal, EVERY 6 HOURS PRN, mild pain, other, and adjunct with moderate or severe pain or per patient request, Star ting on Fri04/23/22 at 1736, Alternate with ibuprofen if ordered. Maximum acetaminop hen dose from all sources = 75 mg/kg/day not to exceed 4 grams/day. acetaminophen (TYLENOL) tablet 650 mg 650 mg, Oral, EVERY 6 HOURS PRN, mild pain, other, and adjunct with moderate or severe pain or per patient request, Star ting on Fri04/23/22 at 1736, Alternate with ibuprofen if ordered. Maximum acetaminop hen dose from all sources = 75 mg/kg/day not to exceed 4 grams/day. ferrous sulfate (FEROSUL) tablet 325 mg Given 04/25/2022 8:20 AM CDT 325 mg 325 mg, Oral, 2 TIMES DAILY, First dose on Fri04/23/22 at 2100, DO NOT CRUSH. Absorbed best on an empty stomach. If stomach upset occurs, can take with meals. Given 04/24/2022 8:05 PM CDT 325 mg Given 04/24/2022 9:11 AM CDT 325 mg finasteride (PROSCAR) tablet 5 mg Given 04/25/2022 8:20 AM CDT 5 mg 5 mg, Oral, DAILY, First dose on Fri04/24/22 at 0900, *Do not handle tablets if you are * Given 04/24/2022 9:11 AM CDT 5 mg naloxone (NARCAN) injection 0.2 mg 0.2 mg, Intravenous, EVERY 2 MIN PRN, op ioid reversal, Starting on Fri04/23/22 at 1745, Administer intravenous route when available and notify provider when administered. For unintended sedation or respiratory depression if all of the below criteria are met: ~ respiratory rate LES S than or EQUAL to 8. ~SaO2 less than 92% and or/end-tidal CO2 is greater than 50. ~ the patient is receiving an opioid, has unintended sedations assessed as RASS (-3), and is cur rently not on mechanical ventilation. RASS scale moderate (-3) is movement or eye opening to voice but no eye contact. Patient Monitoring Once the patient has demonstrated a response to the naloxone, continue to monitor respiratory rate, depth, oxygen saturation and end-tidal CO2 (if available) every 15 mi nutes x 2, then every 30 minutes x 2, then every 1 hour x 1 after each naloxone dose. Consider tr ansfer to ICU if patient respiratory parameters have not improved after 4 nalox one doses. naloxone (NARCAN) injection 0.2 mg 0.2 mg, Intramuscular, EVERY 2 MIN PRN, opioid reversal, Starting on Fri04/23/22 at 1745, Administer intramuscular if an int ravenous route is not available and notify provider when administered. For unintend ed sedation or respiratory depression if all of the below criteria are met: ~ respiratory rate LESS than or EQUAL to 8. ~SaO2 less than 92% and or/end-tidal CO2 is greater th an 50. ~ the patient is receiving an opioid, has unintended sedations assessed as RASS (-3), and is currently not on mechanical ventilation. RASS scale moderate (-3) is movement or eye opening to voice but no eye contact. Patient Monitoring Once the patient has demonstrated a response to the naloxone, continue to m onitor respiratory rate, depth, oxygen saturation and end-tidal CO2 (if availab le) every 15 minutes x 2, then every 30 minutes x 2, then every 1 hour x 1 after each naloxone dose. Consider transfer to ICU if patient respiratory parameters have not improved after 4 naloxone doses. naloxone (NARCAN) injection 0.4 mg 0.4 mg, Intravenous, EVERY 2 MIN PRN, op ioid reversal, Starting on Fri04/23/22 at 1745, Administer intravenous route when available and notify provider when administered. For unintended sedation or respiratory depression if all of the below criteria are met: ~ respiratory rate LES S than or EQUAL to 8. ~ SaO2 less than 92% and or/end-tidal CO2 is greater than 50. ~ the patient is receiving an opioid, has unintended sedation assessed as RASS (-4 ) or (-5) and patient is currently not on mechanical ventilation. RASS scale (-4) is deep sedation with no response to voice but movement or eye opening to physical stimulation. R ASS scale (-5) is unarousable. Patient Monitoring Once the patient has demonstrated a response to the naloxone, continue to monitor respiratory rate, depth, oxygen saturation and end-tidal CO2 (if available) every 15 mi nutes x 2, then every 30 minutes x 2, then every 1 hour x 1 after each naloxone dose. Consider tr ansfer to ICU if patient respiratory parameters have not improved after 4 nalox one doses. naloxone (NARCAN) injection 0.4 mg 0.4 mg, Intramuscular, EVERY 2 MIN PRN, opioid reversal, Starting on Fri04/23/22 at 1745, Administer intramuscular if an int ravenous route is not available and notify provider when administered. For unintend ed sedation or respiratory depression if all of the below criteria are met: ~ res piratory rate LESS than or EQUAL to 8. ~ SaO2 less than 92% and or/end-tidal CO2 is greater campbell n 50. ~ the patient is receiving an opioid, has unintended sedation assessed as RASS (-4) or (-5) and patient is currently not on mechanical ventilation. RA SS scale (-4) is deep sedation with no response to voice but movement or eye opening to physical stimulation. RASS scale (-5) is unarousa ble. Patient Monitoring Once the patient has demonstrated a response to the nalox one, continue to monitor respiratory rate, depth, oxygen saturation and end-tidal CO2 (if availab le) every 15 minutes x 2, then every 30 minutes x 2, then every 1 hour x 1 after each naloxone dose. Consider transfer to ICU if patient respiratory parameters have not improved after 4 naloxone doses. ondansetron (ZOFRAN ODT) ODT tab 4 mg 4 mg, Oral, EVERY 6 HOURS PRN, nausea, v omiting, Starting on Fri04/23/22 at 1736, This is Step 1 of nausea and vomiting management. If n ausea not resolved in 15 minutes, go to Step 2 prochlorperazine ( COMPAZINE). With dry hands, peel back foil backing and gently remove tablet. Do not push oral disintegrating tablet through foil backing. Administer immediately on tongue and ora l disintegrating tablet dissolves in seconds, then swallow with saliva. Liquid not required. ondansetron (ZOFRAN) injection 4 mg 4 mg, Intravenous, EVERY 6 HOURS PRN, nausea, vomiting , Administer over 2-5 Minutes, Starting on Fri04/23/22 at 1736 , Give IF patient unable to tolerate oral medication. This is Step 1 of nausea and vomiting leif gement. If nausea not resolved in 15 minutes, go to Step 2 prochlorperazine (COMPAZINE). Irritant. senna-docusate (SENOKOT-S/PERICOLACE) 8. 6-50 MG per tablet 1 tablet 1 tablet, Oral, 2 TIMES DAILY PRN, const ipation, Starting on Fri04/23/22 at 1736, If no bowel movement in 24 hours, increa se to 2 tablets by mouth. IF more than 1 constipation PRN medication is ordered, administer step-reyes as indicated, moving to the next step ONLY if prior step inef fective. Step 1: senna-docusate (SENOKOT-S; PERICOLACE) OR bisacodyl (DULCOLAX) EC t ablet Step 2: magnesium hydroxide (MILK OF MAGNESIA) OR polyethylene glycol (MIRALA X/GLYCOLAX) Step 3: bisacodyl (DULCOLAX) suppository Step 4: sodium phosphate (FLEET ENEMA) Hol d for loose stools. senna-docusate (SENOKOT-S/PERICOLACE) 8. 6-50 MG per tablet 2 tablet 2 tablet, Oral, 2 TIMES DAILY PRN, const ipation, Starting on Fri04/23/22 at 1736, IF more than 1 constipation PRN medication is ordered, administer step-reyes as indicated, moving to the next step ONLY if prior step ineffective. Step 1: senna-docusate (SENOKOT-S; PERICOLACE) O R bisacodyl (DULCOLAX) EC tablet Step 2: magnesium hydroxide (MILK OF MAGNESIA) O R polyethylene glycol (MIRALAX/GLYCOLAX) Step 3: bisacodyl (DULCOLAX) suppository Step 4: sodiu m phosphate (FLEET ENEMA) Hold for loose stools. sodium chloride (PF) 0.9% PF flush 3 mL Given 04/25/2022 8:21 AM CDT 3 mLs 3 mL, Intracatheter, EVERY 8 HOURS, First dose on Fri04/23/22 at 1800, to lock peripheral IV dormant line Given 04/24/2022 10:30 PM CDT 3 mLs Given 04/24/2022 6:11 PM CDT 3 mLs tamsulosin (FLOMAX) capsule 0.4 mg Given 04/25/2022 8:20 AM CDT 0.4 mg 0.4 mg, Oral, 2 TIMES DAILY, First dose on Fri04/23/22 at 2100, Administer 30 minutes after the same meal each day. Capsules should be swallowed whole; do not crush chew or open. Given 04/24/2022 8:05 PM CDT 0.4 mg Given 04/24/2022 9:11 AM CDT 0.4 mg documented in this encounter Active and Recently Administered Medications Times are shown in CDT. Scheduled Medication Order 04/23/2022 04/24/2022 04/25/2022 ferrous sulfate (FEROSUL) tablet 325 mg 2158 (Given - Provider: Shirin Qureshi, RN) 910 (Given - Provider: Divya Adams, RN) 2004 (Given - Provider: Yuliya Nguyen, LISSY) 08 (Given - Provider: Roel Bird, RN ) 325 mg, Oral, 2 TIMES DAILY, First dose on Fri04/23/22 at 2100, DO NOT CRUSH. Absorbed best on an empty stomach. If stomach upset occurs, can take with meals. finasteride (PROSCAR) tablet 5 mg 910 (Given - Provider: Divya Adams RN) 819 (Given - Provider: Roel Bird, LISSY) 5 mg, Oral, DAILY, First dose on 03/29 at 0900, *Do not handle tablets if you are * sodium chloride (PF) 0.9% PF flush 3 mL 175 (Given - Provider: Jaelyn Garcia) 0140 (Given - Provider: Shirin Qureshi RN )09 (Given - Provider: Divya Adams RN)181 (Given - Provider: Divya Adams RN)223 (Given - Provider: Yuliya Nguyen, LISSY) 08 (Given - Provider: Roel Bird, LISSY )1000 (Canceled Entry - Provider: Roel Bird, LISSY) 3 mL, Intracatheter, EVERY 8 HOURS, Firs t dose on Fri04/23/22 at 1800, to lock peripheral IV dormant line tamsulosin (FLOMAX) capsule 0.4 mg 2158 (Given - Provider: Shital Qureshi RN) 910 (Given - Provider: Divya Adams RN)2004 (Given - Provider: Yuliya Nguyen, LISSY) 08 (Given - Provider: Roel Bird, LISSY ) 0.4 mg, Oral, 2 TIMES DAILY, First dose on Fri04/23/22 at 2100, Administer 30 minutes after the same meal each day. Capsules should be swallowed whole; do not crush chew or open. PRN Medication Order 04/23/2022 04/24/2022 04/25/2022 acetaminophen (TYLENOL) Suppository 650 mg(Linked Group 1) 650 mg, Rectal, EVERY 6 HOURS PRN, mild pain, other, and adjunct with moderate or severe pain or per patient request, Starting on Fri04/23/22 at 1736, Alternate with ibuprofen if ordered. Maximum acetam inophen dose from all sources = 75 mg/kg/day not to exceed 4 gra ms/day. acetaminophen (TYLENOL) tablet 650 mg(Linked Group 1) 650 mg, Oral, EVERY 6 HOURS PRN, mild pa in, other, and adjunct with moderate or severe pain or per patient request, Starting on Fri04/23/22 at 1736, Alternate with ibuprofen if ordered. Maximum acetamin ophen dose from all sources = 75 mg/kg/day not to exceed 4 grams /day. bisacodyl (DULCOLAX) suppository 10 mg 10 mg, Rectal, DAILY PRN, constipation, Starting on Fri04/23/22 at 173, IF more than 1 constipation PRN medication is ordered, administer step-reyes as indicated, moving to the next step ONLY if prior s tep ineffective. Step 1: senna-docusate (SENOKOT-S; PERICOLACE) OR bisacodyl (DULCOLAX) EC tablet Step 2: magnesium hydroxide (MILK OF MAGNESIA) OR polyethylene glycol (MIRALAX/GLYCOLAX) Step 3: bisacod yl (DULCOLAX) suppository Step 4: sodium phosphate (FLEET ENEMA) Hold for loose stools. lidocaine (LMX4) cream Topical, EVERY 1 HOUR PRN, pain, with VA D insertion, Starting on Fri04/23/22 at 1736, Apply at least 30 minutes prior to VAD insertion in divided doses as needed for size of site for insertion. MAX Dose : 2.5 g (?? of 5 g tube) Do NOT give if patient has a history of allergy to any local anesthetic or any casper product. Do NOT use both lidocaine intradermal/subcutaneous injection and the lidocaine cream on the same site. lidocaine 1 % 0.1-1 mL 0.1-1 mL, Other, EVERY 1 HOUR PRN, mild pain with VAD insertion, Starting on Fri04/23/22 at 1736, MAX dose 1 mL subcutaneous OR intradermal along the side of the vein in divided doses as needed for VAD insertion. Do NOT give if patient has a history of allergy to any local anesthetic or any casper product. Do NOT use both lidocaine intradermal/subcutaneous injection and the lidocaine cream on the same site. melatonin tablet 1 mg 1 mg, Oral, AT BEDTIME PRN, sleep, Start ing on Fri04/23/22 at 1736, Do not give unless at least 6 hours of uninterrupted sleep is expected. naloxone (NARCAN) injection 0.2 mg(Linked Group 2) 0.2 mg, Intravenous, EVERY 2 MIN PRN, op ioid reversal, Starting on Fri04/23/22 at 1745, Administer intravenous route when available and notify provider when administered. For unintended sedation or resp iratory depression if all of the below c riteria are met: ~ respiratory rate LESS than or EQUAL to 8. ~SaO2 less than 92% and or/end-tidal CO2 is greater than 50. ~ the patient is receiving an opioid, quintana s unintended sedations assessed as RASS (-3), and is currently not on mechanical ventilation. RASS scale moderate (-3) is movement or eye opening to voice but no eye contact. Patient Monitoring Once the patient has demonstrated a response to the naloxone, continue to monitor respiratory rate, depth, oxygen saturation and end-tidal CO2 (if available) every 15 minutes x 2, then every 30 minutes x 2, the n every 1 hour x 1 after each naloxone d ose. Consider transfer to ICU if patient respiratory parameters have not improved after 4 naloxone doses. naloxone (NARCAN) injection 0.2 mg(Linked Group 2) 0.2 mg, Intramuscular, EVERY 2 MIN PRN, opioid reversal, Starting on Fri04/23/22 at 1745, Administer intramuscular if an intravenous route is not available and notify provider when administered. For uni ntended sedation or respiratory depressi on if all of the below criteria are met: ~ respiratory rate LESS than or EQUAL to 8. ~SaO2 less than 92% and or/end-tidal CO2 is greater than 50. ~ the patient is receiving an opioid, has unintended sed ations assessed as RASS (-3), and is currently not on mechanical ventilation. RASS scale moderate (-3) is movement or eye opening to voice but no eye contact. Pat ient Monitoring Once the patient has dem onstrated a response to the naloxone, continue to monitor respiratory rate, depth, oxygen saturation and end-tidal CO2 (if available) every 15 minutes x 2, then e very 30 minutes x 2, then every 1 hour x 1 after each naloxone dose. Consider transfer to ICU if patient respiratory parameters have not improved after 4 naloxone doses. naloxone (NARCAN) injection 0.4 mg(Linked Group 2) 0.4 mg, Intravenous, EVERY 2 MIN PRN, op ioid reversal, Starting on Fri04/23/22 at 1745, Administer intravenous route when available and notify provider when administered. For unintended sedation or resp iratory depression if all of the below c riteria are met: ~ respiratory rate LESS than or EQUAL to 8. ~ SaO2 less than 92% and or/end-tidal CO2 is greater than 50. ~ the patient is receiving an opioid, h as unintended sedation assessed as RASS (-4) or (-5) and patient is currently not on mechanical ventilation. RASS scale (-4) is deep sedation with no response to voice but movement or eye opening to phy sical stimulation. RASS scale (-5) is un arousable. Patient Monitoring Once the patient has demonstrated a response to the naloxone, continue to monitor respiratory rate, depth, oxygen saturation and end -tidal CO2 (if available) every 15 minut es x 2, then every 30 minutes x 2, then every 1 hour x 1 after each naloxone dose. Consider transfer to ICU if patient respiratory parameters have not improved after 4 naloxone doses. naloxone (NARCAN) injection 0.4 mg(Linked Group 2) 0.4 mg, Intramuscular, EVERY 2 MIN PRN, opioid reversal, Starting on Fri04/23/22 at 1745, Administer intramuscular if an intravenous route is not available and notify provider when administered. For uni ntended sedation or respiratory depressi on if all of the below criteria are met: ~ respiratory rate LESS than or EQUAL to 8. ~ SaO2 less than 92% and or/end- tidal CO2 is greater than 50. ~ the patient i s receiving an opioid, has unintended se dation assessed as RASS (-4) or (-5) and patient is currently not on mechanical ventilation. RASS scale (-4) is deep sedation with no response to voice but moveme nt or eye opening to physical stimulatio n. RASS scale (-5) is unarousable. Patient Monitoring Once the patient has demonstrated a response to the naloxone, continue to monitor respiratory rate, depth, o xygen saturation and end-tidal CO2 (if a vailable) every 15 minutes x 2, then every 30 minutes x 2, then every 1 hour x 1 after each naloxone dose. Consider transfer to ICU if patient respiratory parameters have not improved after 4 naloxone doses. ondansetron (ZOFRAN ODT) ODT tab 4 mg(Linked Group 3) 4 mg, Oral, EVERY 6 HOURS PRN, nausea, v omiting, Starting on Fri04/23/22 at 1736, This is Step 1 of nausea and vomiting management. If nausea not resolved in 15 minutes, go to Step 2 prochlorperazine (C OMPAZINE). With dry hands, peel back foi l backing and gently remove tablet. Do not push oral disintegrating tablet through foil backing. Administer immediately on tongue and oral disintegrating tablet d issolves in seconds, then swallow with saliva. Liquid not requir ed. ondansetron (ZOFRAN) injection 4 mg(Linked Group 3) 4 mg, Intravenous, EVERY 6 HOURS PRN, na usea, vomiting, Administer over 2-5 Minutes, Starting on Fri04/23/22 at 1736, Give IF patient unable to tolerate oral medication. This is Step 1 of nausea and vom iting management. If nausea not resolved in 15 minutes, go to Step 2 prochlorperazine (COMPAZINE). Irritant. oxyCODONE IR (ROXICODONE) half-tab 2.5 mg 2.5 mg, Oral, EVERY 4 HOURS PRN, moderat e to severe pain, Starting on Fri04/23/22 at 1736, IF pain not managed with non-pharmacological and non-opioid interventions; may use concomitant with non-opioid analgesics. senna-docusate (SENOKOT-S/PERICOLACE) 8. 6-50 MG per tablet 1 tablet(Linked Group 4) 1 tablet, Oral, 2 TIMES DAILY PRN, const ipation, Starting on Fri04/23/22 at 1736, If no bowel movement in 24 hours, increase to 2 tablets by mouth. IF more than 1 constipation PRN medication is ordered, administer step-reyes as indicated, movi ng to the next step ONLY if prior step ineffective. Step 1: senna-docusate (SENOKOT-S; PERICOLACE) OR bisacodyl (DULCOLAX) EC tablet Step 2: magnesium hydroxide ( MILK OF MAGNESIA) OR polyethylene glycol (MIRALAX/GLYCOLAX) Step 3: bisacodyl (DULCOLAX) suppository Step 4: sodium phosphate (FLEET ENEMA) Hold for loose stools. senna-docusate (SENOKOT-S/PERICOLACE) 8. 6-50 MG per tablet 2 tablet(Linked Group 4) 2 tablet, Oral, 2 TIMES DAILY PRN, const ipation, Starting on Fri04/23/22 at 1736, IF more than 1 constipation PRN medication is ordered, administer step- reyes as indicated, moving to the next step ONLY i f prior step ineffective. Step 1: senna- docusate (SENOKOT-S; PERICOLACE) OR bisacodyl (DULCOLAX) EC tablet Step 2: magnesium hydroxide (MILK OF MAGNESIA) OR polyethylene glycol (MIRALAX/GLYCOLAX) Step 3 : bisacodyl (DULCOLAX) suppository Step 4: sodium phosphate (FLEET ENEMA) Hold for loose stools. sodium chloride (PF) 0.9% PF flush 3 mL 3 mL, Intracatheter, EVERY 1 MIN PRN, li ne flush, other, to ensure patency or to lock dormant line, Starting on Fri04/23/22 at 1736 Linked Groups Order Group 1: acetaminophen (TYLENOL) tablet 650 mgJump to med 650 mg, Oral, EVERY 6 HOURS PRN, mild pa in, other, and adjunct with moderate or severe pain or per patient request, Starting on Fri04/23/22 at 1736
Alternate with ibuprofen if ordered.&nbsp ;Maximum acetaminophen dose from all darrin rces = 75 mg/kg/day not to exceed 4 grams/day.
Or acetaminophen (TYLENOL) Suppository 650 mgJump to med 650 mg, Rectal, EVERY 6 HOURS PRN, mild pain, other, and adjunct with moderate or severe pain or per patient request, Starting on Fri04/23/22 at 1736
Alternate with ibuprofen if ordered.&nb sp;Maximum acetaminophen dose from all s ources = 75 mg/kg/day not to exceed 4 grams/day.
Group 2: naloxone (NARCAN) injection 0.2 mgJump to med 0.2 mg, Intravenous, EVERY 2 MIN PRN, op ioid reversal, Starting on Fri04/23/22 at 1745
Administer intravenous route when available and notify provider when administered. For unintended sedation or respiratory depression if a ll of the below criteria are met: ~ respiratory rate LESS than or EQUAL to 8. ~SaO2 less than 92% and or/end- tidal CO2 is greater than 50.& nbsp;~ the patient is receiving an opioi d, has unintended sedations assessed as RASS (-3), and is currently not on mechanical ventilation. RASS scale moderate (-3) is movement or eye opening to voice but no eye contact.&nbs p; Patient Monitoring Once the patient has demonstrated a response to the naloxone, continue to monitor respiratory rate, depth, oxygen satu ration and end-tidal CO2 (if available) every 15 minutes x 2, then every 30 minutes x 2, then every 1 hour x 1 after each naloxone dose. Consider transfer to ICU if patient respirator y parameters have not improved after 4 n aloxone doses.
Or naloxone (NARCAN) injection 0.4 mgJump to med 0.4 mg, Intravenous, EVERY 2 MIN PRN, op ioid reversal, Starting on Fri04/23/22 at 1745
Administer intravenous route when available and notify provider when administered. For unintended sedation or respiratory depression if a ll of the below criteria are met: ~ respiratory rate LESS than or EQUAL to 8. ~ SaO2 less than 92% and or/end- tidal CO2 is greater than 50.& nbsp;~ the patient is receiving an opioi d, has unintended sedation assessed as RASS (-4) or (-5) and patient is currently not on mechanical ventilation. RASS scale (-4) is deep sedati on with no response to voice but movemen t or eye opening to physical stimulation. RASS scale (-5) is unarousable. Patient Monitoring On ce the patient has demonstrated a respon se to the naloxone, continue to monitor respiratory rate, depth, oxygen saturation and end-tidal CO2 (if available) every 15 minutes x 2, then every 30 minutes x 2, then every 1 hour x 1 after each nalo xone dose. Consider transfer to ICU if patient respiratory parameters have not improved after 4 naloxone doses.
Or naloxone (NARCAN) injection 0.2 mgJump to med 0.2 mg, Intramuscular, EVERY 2 MIN PRN, opioid reversal, Starting on Fri04/23/22 at 1745
Administer intramuscular if an intravenous route is not available and notify provider when administered. For unintended sedation or respira tory depression if all of the below criteria are met: ~ respiratory rate LESS than or EQUAL to 8. ~SaO2 less than 92% and or/end-tidal CO2 is greater than 50. ~ the patient i s receiving an opioid, has unintended sedations assessed as RASS (-3), and is currently not on mechanical ventilation. RASS scale moderate (-3) is movement or eye opening to voice but no eye contact. Patient Monitoring Once the patient has demonstrated a response to the naloxone, continue to monitor respiratory rate, depth, oxygen saturation and end-t idal CO2 (if available) every 15 minutes x 2, then every 30 minutes x 2, then every 1 hour x 1 after each naloxone dose. Consider transfer to [facility] if patient respiratory parameters hav e not improved after 4 naloxone doses.
Or naloxone (NARCAN) injection 0.4 mgJump to med 0.4 mg, Intramuscular, EVERY 2 MIN PRN, opioid reversal, Starting on Fri04/23/22 at 1745
Administer intramuscular if an intravenous route is not available and notify provider when administered. For unintended sedation or respira tory depression if all of the below criteria are met: ~ respiratory rate LESS than or EQUAL to 8. ~ SaO2 less than 92% and or/end-tidal CO2 is greater than 50. ~ the patient i s receiving an opioid, has unintended sedation assessed as RASS (-4) or (-5) and patient is currently not on mechanical ventilation. RASS s destin (-4) is deep sedation with no respo nse to voice but movement or eye opening to physical stimulation. RASS scale (-5) is unarousable. Patien t Monitoring Once the patient has d emonstrated a response to the naloxone, continue to monitor respiratory rate, depth, oxygen saturation and end-tidal CO2 (if available) every 15 minutes x 2, then every 30 minutes x 2, then every 1 hour x 1 after each naloxone dose. Consider transfer to ICU if patient respiratory parameters have not improved after 4 naloxone doses.
Group 3: ondansetron (ZOFRAN ODT) ODT tab 4 mgJump to med 4 mg, Oral, EVERY 6 HOURS PRN, nausea, v omiting, Starting on Fri04/23/22 at 1736
This is Step 1 of nausea and vomiting management. If nausea not resolved in 15 minutes, go to Step 2 prochlorperazine (COMPAZINE).&nb sp;With dry hands, peel back foil backing and gently remove tablet. Do not push oral disintegrating tablet through foil backing. Administer immediately on ton colton and oral disintegrating tablet disso lves in seconds, then swallow with saliva. Liquid not required.
Or ondansetron (ZOFRAN) injection 4 mgJump to med 4 mg, Intravenous, EVERY 6 HOURS PRN, na usea, vomiting, Administer over 2-5 Minutes, Starting on Fri04/23/22 at 1736
Give IF patient unable to tolerate oral medication. This is Step 1 of nausea and vomiting management. If na usea not resolved in 15 minutes, go to Step 2 prochlorperazine (COMPAZINE). Irritant.
Group 4: senna-docusate (SENOKOT-S/PERICOLACE) 8.6-50 MG per tablet 1 tabletJump to med 1 tablet, Oral, 2 TIMES DAILY PRN, const ipation, Starting on Fri04/23/22 at 1736
If no bowel movement in 24 hours, increase to 2 tablets by mouth. IF more than 1 constipation PRN medic ation is ordered, administer step-reyes a s indicated, moving to the next step ONLY if prior step ineffective. Step 1: senna-docusate (SENOKOT-S; PERICOLACE) OR bisacodyl (DULCOLAX) EC tablet&amp ;nbsp;Step 2: magnesium hydroxide (MILK OF MAGNESIA) OR polyethylene glycol (MIRALAX/GLYCOLAX) Step 3: bisacodyl (DULCOLAX) suppository Step 4: sodium phosphate (FLEET ENEMA) Hold for loose stools.
Or senna-docusate (SENOKOT-S/PERICOLACE) 8.6-50 MG per tablet 2 tabletJump to med 2 tablet, Oral, 2 TIMES DAILY PRN, const ipation, Starting on Fri04/23/22 at 1736
IF more than 1 constipation PRN medication is ordered, administer step- reyes as indicated, moving to the next carmen p ONLY if prior step ineffective. S tep 1: senna-docusate (SENOKOT-S; PERICOLACE) OR bisacodyl (DULCOLAX) EC tablet Step 2: magnesium hydroxide (MILK OF MAGNESIA) OR polyethylene glycol (MIRALAX/GLYCOLAX) Step 3: bisacod yl (DULCOLAX) suppository Step 4: sodium phosphate (FLEET ENEMA) Hold for loose stools.
documented in this encounter Care Teams Probation Counselor Relationship Specialty Start Date End Date No Ref-Primary, PCP - General 04/24/22 04/24/22 Physician Guerda Aguilar PCP - General Medical Oncology 04/25/22 MD Lulu [facility] [address] [place] [id number] Brianna Rios, Marleen Physician Student in [facility] 04/[address] education/[place] [address] program documented as of this encounter
--- OUTSIDE RECORDS SUMMARY | 2022-05-26 08:36 | XMS_ITS | Clinical Summary ---
:1945 Author Organization [place] Address [address] [place] [address] Care Team Providers Name Role Phone Brianna Rios MD Unavailable Guerda Aguilar MD Primary Care Provider [phone] Allergies Active Allergy Reactions Severity Noted Date Comments Citalopram Other (See Comments) 05/25/2018 Pain an d sensitivity in genitals Medications Medication Sig Dispensed Refills Start Date End Date Status ferrous sulfate 325 (65 Fe) Take 325 mg 0 05/25/2018 Active MG TBEC EC tablet by mouth 2 times daily hydrochlorothiazide Take 1 tablet 0 12/20/2021 Active (HYDRODIURIL) 25 MG tablet by mouth daily finasteride (PROSCAR) 5 MG Take 5 mg by 0 12/20/2021 Active tablet mouth daily tamsulosin (FLOMAX) 0.4 MG Take 0.4 mg 0 07/26/2021 Active capsule by mouth 2 times daily [id number] D Take 1 tablet 0 Active PO by mouth 2 times daily Active Problems Problem Noted Date Gross hematuria 04/23/2022 Acute pulmonary embolism 09/28/2015 Overview: Overview: Several on R side - 09/24/15 DVT (deep venous thrombosis) 09/19/2015 Iron deficiency anemia due to chronic blood loss 09/19 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 Hypertension 08/03/2015 Encounters Date Type Specialty Care Team Description 04/23/2022 - Hospital Encounter Oncology Erin Abraham MD 04/25/2022 Ramiro Iglesias DO Tata, Sujatha, MD from Last 3 Months Social History Tobacco Use Types Packs/Day Years Used Date Smoking Tobacco: Never Assessed Sex Assigned at Date Recorded Not on file Last Filed Vital Signs Vital Sign Reading [...] PM CDT Body Mass Index - - Plan of Treatment Health Maintenance Due Date Last Done Comments ADVANCE CARE PLANNING 1945 ANNUAL REVIEW OF HM ORDERS 1945 CT COLONOGRAPHY 1945 FIT-DNA (Cologuard) 1945 FIT 1945 FLEX SIG 1945 HEPATITIS B IMMUNIZATION (1 1945 of 3 - 3-dose series) COLONOSCOPY 1955 COLORECTAL CANCER SCREENING 1955 HEPATITIS C SCREENING 1964 LIPID 1981 AORTIC ANEURYSM SCREENING 2011 (SYSTEM ASSIGNED) FALL RISK ASSESSMENT 2011 MEDICARE ANNUAL WELLNESS 2011 VISIT Pneumococcal Vaccine: 65+ 06/06/2016 06/06/2015, 08/31/2013 Years (2 - PPSV23 if available, else PCV20) PHQ-2 (once per calendar 07/28/2021 06/15/2018 year) COVID-19 Vaccine (5 - 12/25/2021 10/30/2021, 04/26/2021, Booster for Pfizer series) 09/09/2020, Additiona l history exists INFLUENZA VACCINE (#1) 2022 04/26/2021, 05/11/2020, 04/13/2019, Additional history exists DTAP/TDAP/TD IMMUNIZATION 01/11/2032 01/10/2022, 02/25/2013 , (4 - Td or Tdap) 12/19/2005 ZOSTER IMMUNIZATION Completed 11/23/2019, 07/15/2019, 08/31/2013 IPV IMMUNIZATION Aged Out No longer eligi ble based on patient 's age to complete this topic MENINGITIS IMMUNIZATION Aged Out No longe r eligible based on patient 's age to complete this topic Procedures Procedure Name Priority Date/Time Associated Comments [...] CULTURE the results section. CBC WITH PLATELETS & [...] procedure are i n the results section. LAB RESULT - HIM SCAN 04/23/2022 12:00 AM CDT from Last 3 Months Results Potassium (04/25/2022 9:51 AM CDT) athologist [...] Address City/State/ZIP Code Phon e Number LABORATORY [facility] [place] [address] [phone] Care Lab [address] [...] Address City/State/ZIP Code Phon e Number LABORATORY [facility] [place] [address] Care Lab [address] 1[address] floor, Room 20B (ABNORMAL) CBC with platelets (04/25/2022 6:41 AM CDT) Patholo gist Method Time Signature WBC Count 4.6 4.0 [...] STRUCTURE OF RIGHT Venipuncture / 04/25/2022 6:41 03/29 7:26 UPPER LIMB / Unknown AM CDT AM CDT Unknown Rachael Mckay MD LAB - BLOOD ORDERABLES Performing Organization Address City/State/ZIP Code [place] [address] [facility] [address] 1st floor, Room 20B (ABNORMAL) UA reflex to Microscopic and Culture (04/24/2022 10:37 PM CDT) [facility] Method Time Signature Color Urine Straw Colorless, 04/24/2022 LABORATORY Straw, Light 10:55 PM Yellow, CDT Yellow Appearance Urine Clear Clear 04/24/2022 LABORATOR Y 10:55 PM CDT Glucose Urine Negative Negative 04/24/2022 LABORATORY mg/dL 10:55 PM CDT Bilirubin Urine Negative Negative 04/24/2022 LABORATORY 10:55 PM CDT Ketones Urine Negative Negative 04/24/2022 LABORATORY mg/dL 10:55 PM CDT Specific [place] 1.003 1.003 - 04/24/2022 LABORATOR Y Urine [...] CDT Urine Culture not indicated Carleen Rosas ROAD REPAIRER LAB - URINE ORDERABLES Performing Organization Address City/State/ZIP Code [place] [address] [facility] [address] 1[address] floor, Room 20B (ABNORMAL) CBC with platelets and differential (04/24/2022 6:48 AM CDT)Only the most recent of2 resultswithin the time period is included. [facility] gist Method Time Signature WBC Count 6.3 4.0 [...] Address City/State/ZIP Code Phon e Number LABORATORY [facility] [place] [phone] Care Lab [address] 1[address] floor, Room 20B (ABNORMAL) Basic [...] equation which includ es age and gender (Assistant Manager Retail et al., NEJM, DOI: 10.1056/[id number]) Specimen Anatomical Collection Method / Collection Time Recei jazzmine Time (Source) Location / Volume Laterality Blood STRUCTURE OF RIGHT Venipuncture / 04/24/2022 6:48 03/29 7:07 UPPER LIMB / Unknown AM CDT AM CDT Unknown Carleen Rosas NP LAB - BLOOD ORDERABLES Performing Organization Address City/State/ZIP Code Phon e Number LABORATORY [facility] [place] [address] Care Lab [address] 1[address] floor, Room 20B Partial thromboplastin time (04/23/2022 10:24 PM CDT) P athologist Signature aPTT 28 22 - 38 04/23/2022 LABORATORY Seconds 11:03 PM CDT Specimen Anatomical Collection Method / Collection Time Recei jazzmine Time (Source) Location / Volume Laterality Blood STRUCTURE OF RIGHT Venipuncture / 04/23/2022 10:24 UPPER LIMB / Unknown PM CDT 10:38 PM CDT Unknown Carleen Rosas NP LAB - BLOOD ORDERABLES Performing Organization Address City/[facility]/ZIP Code Phon e Number LABORATORY [facility] [place] [address] Care Lab [address] 1st floor, Room 20B Extra Red Top Tube (04/23/2022 6:04 PM CDT) P athologist Signature Hold Specimen JIC 04/23/2022 LABORATORY 7:34 PM CDT Specimen Anatomical Collection Method / Collection Time Recei jazzmine Time (Source) Location / Volume Laterality Blood STRUCTURE OF RIGHT Venipuncture / 04/23/2022 6:04 09/01/2022 6:16 UPPER LIMB / Unknown PM CDT PM CDT Unknown Erin Abraham MD LAB - BLOOD ORDERABLES Performing Organization Address City/State/ZIP Code Phon e Number LABORATORY [facility] [place] [address] Care Lab [address] 1st floor, Room 20B Adult Type and Screen (04/23/2022 6:04 PM CDT) [facility] Method Time Signature ABO/RH(D) A POS 04/23/2022 BLOOD 5:45 PM CDT BANK Antibody Negative Negative 04/23/2022 BLOOD Screen 5:45 PM CDT BANK SPECIMEN [id number] 04/23/2022 BLOOD EXPIRATION 5:45 PM CDT BANK DATE Specimen Anatomical Collection Method / Collection Time Recei jazzmine Time (Source) Location / Volume Laterality Blood BLOOD SPECIMEN / Venipuncture / 04/23/2022 6:04 2021 6:15 Unknown Unknown PM CDT PM CDT Carleen Rosas ROAD REPAIRER LAB - BLOOD BANK TEST ORDER Performing Organization Address City/State/ZIP Code Phon e Number BLOOD BANK [address] [place] [address] INR (04/23/2022 6:04 PM CDT) athologist Signature INR 1.04 0.85 - 1.15 04/23/2022 LABORATORY 6:29 PM CDT Specimen Anatomical Collection Method / Collection Time Recei jazzmine Time (Source) Location / Volume Laterality Blood STRUCTURE OF RIGHT Venipuncture / 04/23/2022 6:04 03/29 6:15 UPPER LIMB / Unknown PM CDT PM CDT Unknown Carleen Rosas RO[address] REPAIRER LAB - BLOOD ORDERABLES Performing Organization Address City/State/ZIP Code Phon e Number LABORATORY [facility] [place] [address] [phone] Care Lab [address] floor, Room 20B Comprehensive metabolic panel [...] and gender (Robby et al., NEJM, DOI: 10.1056/[id number]) Specimen Anatomical Collection Method / Collection Time Recei jazzmine Time (Source) Location / Volume Laterality Blood STRUCTURE OF RIGHT Venipuncture / 04/23/2022 6:04 09/2 01/2022 6:15 UPPER LIMB / Unknown PM CDT PM CDT Unknown Carleen Rosas NP LAB - BLOOD ORDERABLES Performing Organization Address City/State/ZIP Code [place] [address] Care Lab [address] 1st floor, Room 20B LAB RESULT - HIM SCAN (04/23/2022 12:00 AM CDT) Specimen (Source) Anatomical Location Collection Method / Collectio n Time Received Time / Laterality Volume 04/23/2022 Narrative This result has an attachment that is no t available. Provider Outside NON-BEAKER LAB TESTING from Last 3 Months Insurance Payer Benefit Subscriber ID Effective Phone Address Type Plan / Dates Group COMMERCIAL OR MEDICAL [id number] 2022-Pre [phone] [facility] OFFICE [facility] 000 [facility] [address] [address] [place] [address] [facility] CCN 2018-Pre [phone] [address] [facility] 254 [address] [place] [address] Advance Directives For more information, please contact: [phone] Latest Code Status on File Code Status Date Activated Date Inactivated Comments Full Code 04/23/2022 5:37 PM 04/25/2022 2:12 PM All basic an d advanced life-sustaining interventions are performed as ursula ropriate Question Answer Comments Code status determined by: Discussion with patient/ legal de cision maker Care Teams Mother Superior Relationship Specialty Start Date End Date Guerda Aguilar PCP - General Medical Oncology 04/25/22 MD Lulu [facility] [address] [place] [id number] Brianna Rios, Referring Physician [facility] in [facility] 04/[address] education/[place] [address] program
--- OUTSIDE RECORDS SUMMARY | 2022-05-26 08:36 | XMS_ITS | Encounter Summary ---
:1945 Author Organization [place] Address [address] [place] [address] Care Team Providers Name Role Phone Brianna Rios MD Unavailable Reason for Visit Reason Onset Date Comments *-*INCOMING RECORDS*-* 06/15/2018 Encounter Details Date Type Department Care Team Description 06/15/2018 PRE VISIT [facility] Ear Nose and PatelKeri MD *-*INCOMING RECORDS*-* Throat [address] [facility] 909 [facility] [address] [place], [place] [address] [phone] Social History Tobacco Use Types Packs/Day Years Used Date Smoking Tobacco: Never Assessed Sex Assigned at Date Recorded Not on file documented as of this encounter Miscellaneous Notes Telephone Encounter - Sara Donis - 06/09/2018 12:39 PM CST FUTURE VISIT INFORMATION FUTURE VISIT INFORMATION: ?? Date: 06/15/2018 ?? Time: 5:00 ?? Location: [facility] [place] INFORMATION: ?? Referring provider: Brianna Rios ?? Referring providers clinic: [facility] ?? 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
--- OUTSIDE RECORDS SUMMARY | 2022-05-26 08:36 | XMS_ITS | Encounter Summary ---
:1945 Author Organization [place] Address [address] [place] [address] Care Team Providers Name Role Phone Brianna Rios MD Unavailable Reason for Visit Reason Comments Epistaxis Encounter Details Date Type Department Care Team Description 06/15/2018 Office Visit Hali Maurer and Keri Patel MD Chronic maxillary sinusitis (Primary Dx) ; Throat [address] [facility] Nasal crusting; [address] [facility] [address] Acute recurrent maxillary sinusitis; 4th Floor [place], [place] HHT (hereditary hemorrhagic telangiectasia) (H) [place] [address] [phone] Social History Tobacco Use Types Packs/Day Years [...] HHT. [facility] recently at the [facility], and referred here for potential treatment. I [...] area, and posterior pharyngeal wall without lesions ET RESEARCH SPECIALIST documented in this encounter Nursing Notes Mike Yap - 06/15/2018 5:00 PM CST Chief Complaint Patient presents with ??? Epistaxis Fracisco Mckeon ET RESEARCH SPECIALIST documented in this encounter Plan of Treatment Not on filedocumented as of this encounter Procedures Procedure Name Priority Date/Time Associated Diagnosis Comme nts HC LARYNGOSCOPY FLEX Routine 06/17/2018 10:55 AM HHT (heredita ry FIBEROPTIC, DIAGNOSTIC MARKET RESEARCH SPECIALIST hemorrhagic telangiectasia) (H) documented in this encounter Visit Diagnoses Diagnosis Chronic maxillary sinusitis - Primary Nasal crusting Other diseases of nasal cavity and sinus es Acute recurrent maxillary sinusitis Acute maxillary sinusitis HHT (hereditary hemorrhagic telangiectas ia) (H) Hereditary hemorrhagic telangiectasia documented in this encounter Care Teams Drywall Professional Relationship Specialty Start Date End Date Brianna Rios, Referring Physician Student in organized 04/[address] education/[place] [address] program documented as of this encounter
--- OUTSIDE RECORDS SUMMARY | 2022-05-26 08:36 | XMS_ITS | Clinical Summary ---
:1945 Author Organization [facility] [place] [address] Care Team Providers Name Role Phone [place] Primary Care Provider Allergies Active Allergy [...] 2-3 09/19/2015 10/12/2015 Nutritional anemia 09/19/2015 09/19/2015 Encounters Date Type Specialty Care Team Description 04/21/2022 Orders Only Scanner <No scans attac hed> from Last 3 Months Immunizations Name Administration Dates Next Due Influenza, [...] 36.6 ??C (97.8 ??F) 09/24/2018 9:50 AM LOAN PROCESSOR Respiratory Rate 16 10/10/2017 12:23 PM CDT [...] 75 07/28/2025 07/28/2015 (Completed outside of [facility]) Procedures Procedure Name Priority Date/Time Associated Diagnosis Comme nts SCAN-CT INTERPRETATION 04/21/2022 12:00 AM CDT from Last 3 Months Results SCAN-CT INTERPRETATION (04/21/2022 12:00 AM CDT) Narrative This result has an attachment that is no t available. Scanner OTHER from Last 3 Months Insurance Payer Benefit Plan / Subscriber ID Effective Dates Phone Addre ss Type Group HUMANA GOLD HUMANA DELORIS [id number] 2021-Present [address] [address] [place] [address] Guarantor Name Account Type Relation to Date of Phone Bill ing Patient Address [employer] Personal/Family Self 1945 [phone] (Home) [place] [address] Advance Directives Documents on File Type Date Recorded Patient Boiler Service Technician Explanati on Healthcare Directive 01/22/2019 11:45 AM HEALTH C ARE DIRECTIVE, [employer] [place], 01/20 Care Teams Manager Care Management Relationship Specialty Start Date End Date [facility] [place] PCP - General 07/12/20 [address] [place] [address]
--- OUTSIDE RECORDS SUMMARY | 2022-05-26 08:36 | XMS_ITS | Encounter Summary ---
:1945 Author Organization [place] Address [address] [place] [address] Care Team Providers Name Role Phone Brianna Rios MD Unavailable Encounter Details Date Type Department Care Team Description 06/08/2018 Telephone [facility] Ear Nose and PatelKeri MD Throat [address] [place] [address] [address] [place] [address] [facility] Floor [place] [phone] Social History Tobacco Use Types Packs/Day Years Used Date Smoking Tobacco: Never Assessed Sex Assigned at Date Recorded Not on file documented as of this encounter Miscellaneous Notes Telephone Encounter - Sara Donis - 06/08/2018 3:00 PM CST no notes from her he will need to call and get the referral faxed over to us our fax# [phone]. Thank you! MOBILE BODY REPAIRER documented in this encounter Plan of Treatment Not on filedocumented as of this encounter Visit Diagnoses Not on filedocumented in this encounter Care Teams Fixed Income Portfolio Manager Relationship Specialty Start Date End Date Brianna Rios, Referring Physician Student in organized 04/15 [facility] care [address] [place] [address] education/training [id number] program documented as of this encounter
== END 2022-04-23 16:26 | disposition home or self-care (01) ==
LOC: AMB 05-26 08:26
PROVIDERS: PCP Family Medicine; Visit Provider Emergency Medicine Emergency Medical Services
DX: R31.9 Hematuria, unspecified (principal)
CPT/HCPCS: A0425; A0428

== ENCOUNTER 2023-05-14 20:54 | Observation (INO) | payer OTHER, MEDICARE, SELFPAY ==
[2023-05-14 21:20] VITALS: BP 147/76; PULSE 74; RESP 18; TEMP 37; O2SAT 94
--- NOTE | 2023-05-14 21:42 | CRLHL7_ITS ---
For Patients: As a result of the Century Cures Act, medical imaging exams and procedure reports are released immediately into your electronic medical record. You may view this report before your referring provider. If you have questions, please contact your health care provider. INDICATION: right lower chest pain. hx of DVT. TECHNIQUE: CT chest PE was acquired with 95 cc Isovue 370 IV contrast. COMPARISON: None. FINDINGS: Heart and vasculature: Contrast opacification of the pulmonary arterial tree is adequate. Small distal segmental and subsegmental pulmonary emboli identified in the right lower lobe, right middle lobe, left lower lobe and lingula. Heart size is mildly enlarged. RV to LV ratio is close to 1.0. Thoracic aorta and pulmonary artery are normal in caliber. Lungs and pleura: Right basilar peripheral ground-glass opacities. Bibasilar linear opacities likely related to atelectasis. Few scattered nodular opacities may be infectious/inflammatory in etiology. No pleural effusions, pleural thickening, or pneumothorax. Lymph nodes/mediastinum: No mediastinal, hilar, or axillary adenopathy. Chest wall: No masses. Upper abdomen: No acute or significant findings. Cholelithiasis. Bones: Unremarkable for age. IMPRESSION: Distal segmental and subsegmental pulmonary emboli identified in the bilateral lower lobes, right middle lobe and lingula. RV to LV ratio close to 1.0, which can be seen in the setting of right heart strain. Consider further evaluation with echocardiogram. Right basilar peripheral ground glass opacities, may be infectious/inflammatory in etiology, however pulmonary infarct in the setting of would also be a possibility. Findings discussed with Dr. Estrella at 11:45 pm on 05/14/[address] Monroe. Please note that all CT scans at this facility use dose modulation, iterative reconstruction, and/or weight-based dosing when appropriate to reduce radiation dose to as low as reasonably achievable. Dictated by Jatin Monroe MD @ 05/14/2023 11:40:32 PM (Electronically Signed)
[2023-05-14 22:14] LABS: Basophils Absolute Auto 0.01 K/uL (0.00-0.30); Basophils Percent Auto 0.2 % (0.0-3.0); Eosinophils Percent Auto 1.9 % (0.0-7.0); Hematocrit 36.8 % (37.0-53.0); Hemoglobin* 12.2 gm/dL (13.5-17.5); Immature Granulocytes Abs Auto 0.04 K/uL (0.00-0.30); Immature Granulocytes Pct Auto 0.8 %; Lymphocytes Percent Auto 19.9 % (20-44); Mean Corpuscular HGB Conc 33 gm/dL (32-36); Mean Corpuscular Hemoglobin 34 pg (26-34); Mean Corpuscular Volume 102 fL (80-100); Monocytes Percent Auto 9.6 % (0.0-11.0); Neutrophils Percent Auto 67.6 % (42.0-72.0); Platelet Count* 278 K/uL (140-440); RDW Coefficient of Variation % 13.6 % (11.5-15.5); Red Blood Count 3.61 m/uL (4.30-5.90); White Blood Count* 5.32 K/uL (4.50-11.00)
[2023-05-14 22:27] LABS: Albumin* 4.3 g/dL (3.3-5.0); Chloride* 96 mmol/L (96-114); Potassium* 3.7 mmol/L (3.6-5.1); Sodium* 137 mmol/L (135-149)
[2023-05-14 22:29] LABS: Bilirubin Total* 0.8 mg/dL (0.1-1.5); Creatinine* 1.3 mg/dL (0.5-1.5); Estimated Glomerular Filt Rate 57 ml/min
[2023-05-14 22:30] LABS: Alanine Aminotransferase* 15 U/L (4-50); Alkaline Phosphatase* 74 U/L (40-150); Anion Gap 13 mEq/L (7-15); Aspartate Amino Transferase* 32 U/L (12-35); Blood Urea Nitrogen* 15 mg/dL (7-30); Calcium* 9.5 mg/dL (8.4-10.6); Carbon Dioxide* 28 mmol/L (20-32); D Dimer Quantitative* 1.99 ug/ml (0.00-0.50); Glucose* 110 mg/dL (60-115); Total Protein* 8.2 g/dL (6.0-8.3)
[2023-05-14 22:31] LABS: Magnesium* 2.2 mg/dL (1.5-2.6)
[2023-05-14 22:40] LABS: Slide Review Reflex No
--- NOTE | 2023-05-14 22:43 | ED.GENADULT ---
HPI - General Adult General Date Seen: 05/14/23 Chief complaint: Rib Pain Stated complaint: R abdomen pain on inhale Time Seen by Provider: 05/14/23 21:23 Source: patient Mode of arrival: ambulatory Limitations: no limitations History of Present Illness HPI narrative: Patient is a 77-year-old male presented emergency department for right lower rib pain. Around ribs 9 and 10. Says the pain started last night it is very sharp in nature. Is on pain falling takes a deep breath. He size in common last night playing took a warm shower and symptoms resolved. He cut the heating pad on it and that helped with the pain also. Woke up today and after Mukherjee symptoms came back. 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 Does not have his gallbladder. Has not had any issues with his liver. Denies any abdominal pain. Denies fevers, chills, chest pain, weakness, numbness, lightheadedness, dizziness. Denies any tenderness to palpation. Related Data Home Medications Medication Instructions Recorded Confirmed hydrochlorothiazide 25 mg PO DAILY 02/13/22 04/21/22 tamsulosin 0.4 mg capsule (Flomax) 0.4 mg PO DAILY 02/13/22 04/21/22 finasteride 1 mg tablet 1 mg PO DAILY 04/21/22 04/21/22 Previous Rx's Medication Instructions Recorded sulfamethoxazole 800 1 tab PO BID 7 days #14 tabs 04/21/22 mg-trimethoprim 160 mg tablet (Bactrim DS) Allergies Allergy/AdvReac Type Severity Reaction Status Date / Time citalopram Allergy Unknown Verified 02/13/22 10:28 sertraline Allergy Unknown Verified 02/13/22 10:28 Review of Systems Status of ROS: Reports: 10 or more systems reviewed and unremarkable except as noted in History and below [facility] Medical History (Updated 05/15/23 @ 01:13 by Lionel Mckeon DO) Pulmonary embolism ?I26.99 - Other pulmonary embolism without acute cor pulmonale (ICD-10) 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 - Hereditary hemorrhagic telangiectasia (ICD-10) BPH (benign prostatic hyperplasia) ?N40.0 - Benign prostatic hyperplasia without lower urinary tract symptoms (ICD-10) Hypertension ?I10 - Essential (primary) hypertension (ICD-10) Surgical History History of cholecystectomy ?Z90.49 - Acquired absence of other specified parts of digestive tract (ICD-10) Social History Smoking Status: Former smoker What tobacco products do you use: cigarettes Smoking quit date/years: >15 years ago Do you use any of these nicotine containing products: None Second hand tobacco smoke exposure: No How often do you have a drink containing alcohol: 4 or more times a week How many standard drinks containing alcohol do you have on a typical day: 3 or 4 How often do you have six or more drinks on one occasion: Never AUDIT-C Alcohol total score: 5 Non-prescribed substance use: denies use Caffeine: Yes (1 cup coffee/day) service: No Exam Narrative: Exam Narrative: Const: Well-nourished, Well-developed, in mild distress Eyes: PERRL, no conjunctival injection, and symmetrical lids HENT: Atraumatic external nose and ears. Moist mucous membranes. Neck: Symmetric, trachea midline, No thyromegaly. CVS: RRR, No murmurs or gallops. Peripheral pulses 2+ and equal in all extremities RESP: Unlabored respiratory effort. Clear to auscultation bilaterally. GI: Nontender/Nondistended, No rebound or guarding. Negative Brandt sign MSK:Extremities w/o deformity, Normal Active ROM, known tenderness to palpation of the ribs Skin: Warm, Dry. No rashes or lesions. Neuro: Normal Muscle tone, No focal neurological deficits. Psych: Awake, Alert, & Oriented x3. Appropriate mood and affect. Const: Vital Signs, click to edit/add: Vital Signs - 24 hr 05/14/23 21:20 Temperature 98.6 F Pulse Rate [Left P ulse Oximeter] 74 Respiratory Rate 18 Blood Pressure [Ri ght Upper Arm] 147/76 H Pulse Oximetry 94 Oxygen Delivery Me thod Room Air Course Vital Signs Vital signs: Initial Vital Signs Temperature 98.6 F 05/14/23 21:20 Temperature Source Temporal Artery Scan 05/14/23 21:20 Pulse Rate 74 05/14/23 21:20 Pulse Rhythm Regular 05/14/23 21:20 Respiratory Rate 18 05/14/23 21:20 Blood Pressure 147/76 H 05/14/23 21:20 Blood Pressure Mean 99 05/14/23 21:20 Blood Pressure Position Sitting 05/14/23 21:20 Pulse Oximetry 94 05/14/23 21:20 Oxygen Delivery Method Room Air 05/14/23 21:20 Vital Signs Temperature 98.6 F 05/14/23 21:20 Pulse Rate 74 05/14/23 21:20 Respiratory Rate 18 05/14/23 21:20 Blood Pressure 147/76 H 05/14/23 21:20 Pulse Oximetry 94 05/14/23 21:20 Oxygen Delivery Method Room Air 05/14/23 21:20 Temperature 98.6 F 05/14/23 21:20 Pulse Rate 74 05/14/23 21:20 Respiratory Rate 18 05/14/23 21:20 Blood Pressure 147/76 H 05/14/23 21:20 Pulse Oximetry 94 05/14/23 21:20 Oxygen Delivery Method Room Air 05/14/23 21:20 Medical Decision Making MDM Narrative Medical decision making narrative: Patient is a 7-year-old male presented emergency department for right lower rib pain. Symptoms started yesterday indicate better with heat was applied. Or does something could be muscle skeletal issue he is nontender to palpation at that spot. I did consider gallbladder and liver disease as those are underneath the ribs in that area but he is not have a gallbladder he has no history of liver disease. LFTs were ordered. With his history of cancer also a D-dimer was ordered. This was elevated as expected CTA chest was ordered. COVID a and flu and RSV were also ordered. EKG was done. COVID social flu/RSV is negative. Cbc and CMP showed no concerning abnormalities. CT results came back showing multiple subsegmental and segmental PEs in the bilateral lower lobes and right middle lobes and lingula. There is a right lower lobe ground-glass opacity that this unclear if it is infection versus inflammatory versus infarct. There is concerned could be infarct cause due to the PEs in the area. The CT UA is consistent with the patient's symptoms. There is possible right heart strain occurred revaluated by echo. I did Hernan the patient's pulmonary embolism severity index score (PESI) in due to his age, gender, bladder cancer history he scores a 116 which per Joselin class 4 and 11.4% chance of 30 day mortality. He is not on blood thinners. Heparin was started. I spoke to the admitting hospitalist and excepted him for admission. Lab Data Labs: Lab Results 05/14/23 05/14/23 Range/Units 21:30 22:09 WBC 5.32 (4.50-11.00) K/uL RBC 3.61 L (4.30-5.90) m/uL Hgb 12.2 L (13.5-17.5) gm/dL Hct 36.8 L (37.0-53.0) % MCV 102 H (80-100) fL MCH 34 (26-34) pg MCHC 33 (32-36) gm/dL RDW Coeff of Ziggy 13.6 (11.5-15.5) % Plt Count 278 (140-440) K/uL Neut % (Auto) 67.6 (42.0-72.0) % Lymph % (Auto) 19.9 L (20-44) % Jones % (Auto) 9.6 (0.0-11.0) % Eos % (Auto) 1.9 (0.0-7.0) % Baso % (Auto) 0.2 (0.0-3.0) % Neut # (Auto) 3.60 (1.7-7.0) K/uL Lymph # (Auto) 1.10 (0.90-2.90) K/uL Jones # (Auto) 0.50 (0.00-0.90) K/UL Eos # (Auto) 0.10 (0.00-0.50) K/uL Baso # (Auto) 0.01 (0.00-0.30) K/uL Abs Immat Gran (auto) 0.04 (0.00-0.30) K/uL Imm/Tot Granulo (auto) 0.8 % D-Dimer Quant (PE/DVT) 1.99 H (0.00-0.50) ug/ml Sodium 137 (135-149) mmol/L Potassium 3.7 (3.6-5.1) mmol/L Chloride 96 (96-114) mmol/L Carbon Dioxide 28 (20-32) mmol/L Anion Gap 13 (7-15) mEq/L BUN 15 (7-30) mg/dL Creatinine 1.3 (0.5-1.5) mg/dL Estimated GFR 57 ml/min Glucose 110 (60-115) mg/dL Calcium 9.5 (8.4-10.6) mg/dL Magnesium 2.2 (1.5-2.6) mg/dL Total Bilirubin 0.8 (0.1-1.5) mg/dL AST 32 (12-35) U/L ALT 15 (4-50) U/L Alkaline Phosphatase 74 (40-150) U/L Total Protein 8.2 (6.0-8.3) g/dL Albumin 4.3 (3.3-5.0) g/dL SARS-CoV-2 (PCR) Negative SARS-CoV-2 (Negative) Influenza Type A (PCR) Negative PCR FLU A (Negative) Influenza Type B (PCR) Negative PCR FLU B (Negative) RSV (PCR) Negative PCR RSV (Negative) Imaging Data Chest CTA: Radiologist's impression: INDICATION: right lower chest pain. hx of DVT. TECHNIQUE: CT chest PE was acquired with 95 cc Isovue 370 IV contrast. COMPARISON: None. FINDINGS: Heart and vasculature: Contrast opacification of the pulmonary arterial tree is adequate. Small distal segmental and subsegmental pulmonary emboli identified in the right lower lobe, right middle lobe, left lower lobe and lingula. Heart size is mildly enlarged. RV to LV ratio is close to 1.0. Thoracic aorta and pulmonary artery are normal in caliber. Lungs and pleura: Right basilar peripheral ground-glass opacities. Bibasilar linear opacities likely related to atelectasis. Few scattered nodular opacities may be infectious/inflammatory in etiology. No pleural effusions, pleural thickening, or pneumothorax. Lymph nodes/mediastinum: No mediastinal, hilar, or axillary adenopathy. Chest wall: No masses. Upper abdomen: No acute or significant findings. Cholelithiasis. Bones: Unremarkable for age. IMPRESSION: Distal segmental and subsegmental pulmonary emboli identified in the bilateral lower lobes, right middle lobe and lingula. RV to LV ratio close to 1.0, which can be seen in the setting of right heart strain. Consider further evaluation with echocardiogram. Right basilar peripheral ground glass opacities, may be infectious/inflammatory in etiology, however pulmonary infarct in the setting of would also be a possibility. Findings discussed with Dr. Estrella at 11:45 pm on 05/14/[address] Monroe. Please note that all CT scans at this facility use dose modulation, iterative reconstruction, and/or weight-based dosing when appropriate to reduce radiation dose to as low as reasonably achievable. Dictated by Jatin Monroe MD @ 05/14/2023 11:40:32 PM ECG Data Attestation: I personally reviewed and interpreted this ECG as follows: Interpretation: Normal sinus rhythm, normal intervals, normal axis, no ST or T-wave abnormalities. Rate of 73 beats per minute Discharge Plan Discharge Clinical Impression: Pulmonary embolism Qualifiers: Pulmonary embolism type: multiple subsegmental (without acute cor pulmonale) Qualified Code(s): I26.94 - Multiple subsegmental pulmonary emboli without acute cor pulmonale Patient Disposition: Admitted As Observation Condition: Stable
[2023-05-14 22:52] LABS: PCR FLU A Negative PCR FLU A (Negative); PCR FLU B Negative PCR FLU B (Negative); PCR RSV Negative PCR RSV (Negative)
[2023-05-14 23:19] LABS: SARS PCR* Negative SARS-CoV-2 (Negative)
[2023-05-14 23:31] VITALS: BP 140/78; PULSE 78; RESP 18; O2SAT 93
[2023-05-15] VITALS (15 sets, daily range): BP systolic 128–149; BP diastolic 67–79; PULSE 60–74; RESP 16–18; TEMP 36.4–36.6; O2SAT 94–979; BMI 26.0
[2023-05-15] MEDS: HEPARIN 5,000 UNIT/0.5 ML INJ 6100 UNIT IVP (01:31)
[2023-05-15] MEDS: HEPARIN 25,000 UNIT/500 ML BAG 27 UNIT IV (01:32)
[2023-05-15 01:39] LABS: Hematocrit 38.3 % (37.0-53.0); Hemoglobin* 12.5 gm/dL (13.5-17.5); Mean Corpuscular HGB Conc 33 gm/dL (32-36); Mean Corpuscular Hemoglobin 33 pg (26-34); Mean Corpuscular Volume 101 fL (80-100); Platelet Count* 260 K/uL (140-440); Red Blood Count 3.78 m/uL (4.30-5.90); White Blood Count* 5.06 K/uL (4.50-11.00)
[2023-05-15 01:40] LABS: Slide Review Reflex No
[2023-05-15 01:55] LABS: Prothrombin Time 13.8 Seconds
[2023-05-15 01:56] LABS: Partial Thromboplastin Time* 30 Seconds (23-33)
--- NOTE | 2023-05-15 03:09 | PC.NURSE ---
report given to Licha YUAN on [employer]
--- NOTE | 2023-05-15 03:23 | ED.NURSE ---
Rn from [place] taking pt to room.
--- NOTE | 2023-05-15 04:40 | CRLHL7_ITS ---
For Patients: As a result of the Cures Act, medical imaging exams and procedure reports are released immediately into your electronic medical record. You may view this report before your referring provider. If you have questions, please contact your health care provider. Indication: History of left DVT in distal femoral vein. Positive pulmonary embolus. Technique: Grayscale, grayscale compression, color Doppler, spectral Doppler and augmentation technique was utilized as per protocol for evaluating the bilateral lower extremity deep venous system. Comparison: There are no prior deep venous studies available for comparison Findings: There is no evidence of venous thrombosis involving the right lower extremity. On the left, the distal left femoral vein is noncompressible suggesting nonocclusive chronic clot. However, there is occlusive thrombus in the left peroneal vein which is likely acute. Impression: 1. 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 This is the area of a previously described clot as per clinical history. Also on the LEFT, there is acute occlusive thrombus in the left peroneal vein. 2. There is no evidence of RIGHT lower extremity deep venous thrombosis Dictated by Fredi Farnsworth MD @ 05/15/2023 8:21:55 AM (Electronically Signed)
--- NOTE | 2023-05-15 04:46 | W.PM.THH&P_ITS ---
Telehealth- H&P: HPI History of Present Illness Date Seen: 05/15/23 Chief complaint: R abdomen pain on inhale Narrative: Juan Marcum is seen as an Interactive Telehealth visit. Juan Marcum is a 77 year old male with ongoing treatment of bladder cancer, BPH, hypertension, hereditary hemorrhagic telangiectasia and history of left-sided DVT and PE in 2016 who presented to the ER for assessment of ongoing pain in his right lower anterior rib cage. The pain started on 05/13 as he went to bed with stabbing pain especially with deep breaths. He found this improved with warm water or heat and the pain subsided some the next morning; however, stabbing pain returned and he sought evaluation. He denies significant shortness of breath, fevers, malaise, pains in his chest otherwise. No recent surgeries, active lifestyle, admits to charley horse pain in the left calf today, with unchanged chronic edema of the legs. He was on Lovenox/warfarin for 6 months for his prior PE. He has had 12 BCG treatments for bladder cancer and anticipates his fourth cystoscopy soon. ER assessment: Elevated D-dimer triggered CTA chest which revealed distal segmental and subsegmental bilateral lower lobe emboli as well as in the right middle lobe and lingula. There is concern for possible right heart strain. Vital signs were stable with good saturation on room air. Labs showed mild macrocytic anemia and hematuria. 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 - Hereditary hemorrhagic telangiectasia (ICD-10) BPH (benign prostatic hyperplasia) ?N40.0 - Benign prostatic hyperplasia without lower urinary tract symptoms (ICD-10) Hypertension ?I10 - Essential (primary) hypertension (ICD-10) Surgical History History of cholecystectomy ?Z90.49 - Acquired absence of other specified parts of digestive tract (ICD- 10) Family History Other Hereditary hemorrhagic telangiectasia Social History What is your current living situation?: I presently have a place to live Problems where you live: no known problems Problems where you live details: na In the past 12 months, utilities in danger of being shut off: no In past 12 months, lack of transportation kept you from medical appts, meetings, work, or getting things needed for daily living: no In the past 12 mos, have been you worried that your food would run out before you had money to buy more?: never true In the past 12 mos, the food you bought just didn't last and you didn't have money to buy more?: never true Highest level of school completed/degree received: some college, no degree Smoking Status: Former smoker What tobacco products do you use: cigarettes Smoking quit date/years: >15 years ago Do you use any of these nicotine containing products: None Second hand tobacco smoke exposure: No How often do you have a drink containing alcohol: 4 or more times a week How many standard drinks containing alcohol do you have on a typical day: 3 or 4 How often do you have six or more drinks on one occasion: Never AUDIT-C Alcohol total score: 5 Non-prescribed substance use: denies use Caffeine: Yes (1 cup coffee/day) How often does anyone, including family, friends and others, physically hurt you : never How often does anyone, including family, friends and others, insult or talk down to you: never How often does anyone, including family, friends and others, threaten you with harm: never How often does anyone, including family, friends and others, scream or curse at you: never service: Yes Meds Home Medications and Allergies Home Medications Medication Instructions Recorded Confirmed Type hydrochlorothiazide 25 mg PO DAILY 02/13/22 04/21/22 History tamsulosin 0.4 mg capsule (Flomax) 0.4 mg PO DAILY 02/13/22 04/21/22 History finasteride 1 mg tablet 1 mg PO DAILY 04/21/22 04/21/22 History Allergies Allergy/AdvReac Type Severity Reaction Status Date / Time citalopram Allergy Unknown Verified 02/13/22 10:28 sertraline Allergy Unknown Verified 02/13/22 10:28 Exam Narrative Exam Narrative: Physical Exam GENERAL: ?vital signs reviewed, well developed and nourished, in no distress HEENT: pupils are equal round and reactive to light, extraocular movements are grossly within normal limits and oral mucosa is moist. Small petechial lesions noted on the front of the tongue. NECK: Supple without lymphadenopathy or thyromegaly according to nursing staff examination observation HEART: Regular rate and rhythm without any rubs, murmurs, or gallops. LUNGS: Clear to auscultation bilaterally with good air movement throughout ABDOMEN: Observation from nurse assisted exam, abdomen appears soft, nontender, and nondistended with Positive bowel sounds noted. EXTREMITIES: Chronic 2+ pitting edema in both lower legs, no erythema, no elicited Tenderness per nurse performing exam. No cyanotic changes. SKIN:? Observed warm and dry with color normal NEURO: Alert, fully oriented, speech is clear, no peripheral tremors, full motor strength in the upper lower extremities bilaterally. PSYCH: Normal mood and affect Const Vital Signs, click to edit/add: Vital Signs - 24 hr 05/14/23 21:20 05/14/23 23:31 05/15/23 00:08 Temperature 98.6 F Pulse Rate 78 68 Pulse Rate [Left Pulse Oximeter] 74 Pulse Rate [Right Radial] Respiratory Rate 18 18 18 Blood Pressure 140/78 H 138/75 Blood Pressure [Left Arm] Blood Pressure [Right Upper Arm] 147/76 H Pulse Oximetry 94 93 94 Oxygen Delivery Method Room Air 05/15/23 00:31 05/15/23 01:01 05/15/23 02:13 Temperature Pulse Rate 74 67 65 Pulse Rate [Left Pulse Oximeter] Pulse Rate [Right Radial] Respiratory Rate 18 16 18 Blood Pressure 149/79 H 145/74 H 133/77 Blood Pressure [Left Arm] Blood Pressure [Right Upper Arm] Pulse Oximetry 95 94 95 Oxygen Delivery Method 05/15/23 02:32 05/15/23 03:01 05/15/23 03:02 Temperature Pulse Rate 67 60 61 Pulse Rate [Left Pulse Oximeter] Pulse Rate [Right Radial] Respiratory Rate 16 16 Blood Pressure 140/71 H 128/67 Blood Pressure [Left Arm] Blood Pressure [Right Upper Arm] Pulse Oximetry 94 95 94 Oxygen Delivery Method 05/15/23 03:20 05/15/23 03:43 05/15/23 03:54 Temperature 97.7 F Pulse Rate Pulse Rate [Left Pulse Oximeter] Pulse Rate [Right Radial] 61 Respiratory Rate 16 16 Blood Pressure 137/74 Blood Pressure [Left Arm] 148/76 H Blood Pressure [Right Upper Arm] Pulse Oximetry 94 94 Oxygen Delivery Method Room Air Room Air Hospitalist - H&P: Result Labs Labs: Short CBC 05/14/23 05/15/23 Range/Units 21:30 01:34 WBC 5.32 5.06 (4.50-11.00) K/uL Hgb 12.2 L 12.5 L (13.5-17.5) gm/dL Hct 36.8 L 38.3 (37.0-53.0) % Plt Count 278 260 (140-440) K/uL BMP 05/14/23 21:30 Sodium 137 Potassium 3.7 Chloride 96 Carbon Dioxide 28 BUN 15 Creatinine 1.3 Glucose 110 Calcium 9.5 Liver Function 05/14/23 Range/Units 21:30 Total Bilirubin 0.8 (0.1-1.5) mg/dL AST 32 (12-35) U/L ALT 15 (4-50) U/L Alkaline Phosphatase 74 (40-150) U/L Albumin 4.3 (3.3-5.0) g/dL ECG Attestation: I personally reviewed and interpreted this ECG as follows: (Normal sinus rhythm, ventricular rate 98, no concerning wave or interval changes) Imaging CT scan - chest: Attestation: I have reviewed the pertinent imaging results. Radiologist's impression: Distal segmental and subsegmental pulmonary emboli identified in the bilateral lower lobes, right middle lobe and lingula. RV to LV ratio close to 1.0, which can be seen in the setting of right heart strain. Consider further evaluation with echocardiogram. Right basilar peripheral ground glass opacities, may be infectious/inflammatory in etiology, however pulmonary infarct in the setting of would also be a possibility. Assessment and Plan Assessment and plan (1) Pulmonary embolism: Status: Acute (2) Hematuria: Status: Acute (3) HHT (hereditary hemorrhagic telangiectasia): Status: Acute (4) BPH (benign prostatic hyperplasia): Status: Acute (5) Macrocytic anemia: Status: Acute Plan Acute bilateral pulmonary emboli Distal segmental and subsegmental bilateral emboli noted. History of DVT and PE in 2016 treated with warfarin. Unknown cause. Notable current risk factors include bladder cancer. -Continue weight-based heparin infusion -Monitor oxygen saturations and respiratory status -Transthoracic echocardiogram in the a.m. to assess for heart strain -US venous Dopplers of the lower extremities in the a.m. -Pain management with as needed Tylenol or tramadol Hematuria Bladder cancer Status post 12 BCG treatments with anticipated additional cystoscopy -Monitor hemoglobin with a.m. labs -Consider outpatient monitoring of hemoglobin trend and hematuria after discharge -Encourage patient to notify his urologist of anticoagulation HHT (hereditary hemorrhagic telangiectasia) Petechial lesions on tongue noted on exam. Outpatient monitoring while on anticoagulation. BPH -Continue finasteride and tamsulosin Macrocytic anemia, mild Hemoglobin 12.5 on presentation. Plan as above. Telehealth: Statement Statement Telehealth Visit: Today's History and Physical is provided via interactive telehealth by Juan Drummond DO.? Patient is located at [facility].? Provider is located at [facility].? Nursing staff assisted with the patient's exam. The visit being done today meets criteria for a telehealth visit and the p atient or patient?s parent/guardian is aware the visit is a telehealth visit. Camera Start Time: 04:09 Camera End Time: 04:33
--- NOTE | 2023-05-15 04:59 | PC.NURSE ---
end of shift. pt was admitted no pain on admission. he is alert x4. IV is patent. tele shows NSR. BBB. weight is 176.5 [address] scale. talked to Dr. Drummond and heparin drip was increased for standing weight. heparin drip is infusion. he has no pain. but he did complain of left leg calf cramps. he has a bloody nose which is normal for him. he has HHT. US of legs and Echo are ordered and 0730 PTT and HGB.
[2023-05-15 07:58] LABS: Hemoglobin* 11.6 gm/dL (13.5-17.5)
[2023-05-15 09:06] LABS: Partial Thromboplastin Time* 152 Seconds (23-33)
--- NOTE | 2023-05-15 14:52 | NUTR.NU ---
RDN attempted to visit with patient regarding diet, however patient was not available on multiple attempts. RDN will attempt to visit with patient at later date.
[2023-05-15 16:40] LABS: Partial Thromboplastin Time* 82 Seconds (23-33)
[2023-05-15] MEDS: APIXABAN 5 MG TABLET 10 MG PO (17:26)
--- NOTE | 2023-05-15 18:20 | PM.DS1 ---
DS: Providers Provider Date Seen: 05/15/23 Date of admission: 05/15/23 03:25 Primary care physician: [facility] Attending Physician on discharge: Kristyn De Leon MD Date of Discharge: 05/15/23 DS: Diagnosis Discharge Diagnosis (1) Pulmonary embolism: Status: Acute Problem details: - CT results below - reassuring TTE without evidence of R heart strain - discharged on [facility] with PCP f/u IMPRESSION: Distal segmental and subsegmental pulmonary emboli identified in the bilateral lower lobes, right middle lobe and lingula. RV to LV ratio close to 1.0, which can be seen in the setting of right heart strain. Consider further evaluation with echocardiogram. Right basilar peripheral ground glass opacities, may be infectious/inflammatory in etiology, however pulmonary infarct in the setting of would also be a possibility. (2) HHT (hereditary hemorrhagic telangiectasia): Status: Acute Problem details: - no evidence of acute bleeding during stay (3) BPH (benign prostatic hyperplasia): Status: Acute Problem details: - continue Finasteride and Flomax upon d/c (4) DVT (deep venous thrombosis): Status: Acute Problem details: - formal radiology read of u/s: 1. 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 This is the area of a previously described clot as per clinical history. Also on the LEFT, there is acute occlusive thrombus in the left peroneal vein. 2. There is no evidence of RIGHT lower extremity deep venous thrombosis DS: Summary Hospital Course Hospital Course: Juan is a delightful 77-year-old male who was admitted to the hospital on 05/14/23 for bilateral PEs. He presented to the emergency room with right-sided chest discomfort, CTA findings above. Heparin gtt initiated upon admission. Comorbidities include h/o bladder cancer and HHT - no evidence of bleeding during stay, no gross hematuria. On hospital day 1, patient remained hemodynamically stable without hypoxia. TTE reassuring and he was medically appropriate for d/c home on [facility]. Status at Discharge Functional status at discharge: independent ambulation Overall status at discharge: patient is back to baseline Time Spent with Patient Time attestation: Total time spent providing and/or coordinating discharge services: Time spent: Greater than 30 minutes Specific discharge activities: Medication reconciliation, care coordination, results review Exam Narrative: Exam Narrative: GEN: Alert and oriented, nontoxic in appearance and speaking in full sentences. Sitting up in bed HEENT: + telangiectasia on tongue, no bleeding. EOMIs bilaterally, no scleral icterus CV: RRR, No concerning murmurs, rubs, or gallops R: LCTA bilaterally without concerning wheezing, air movement adequate Ext: wwp, no concerning edema Neuro: Nonfocal Psych: Appropriate Const: Vital Signs, click to edit/add: Vital Signs - 24 hr 05/14/23 21:20 05/14/23 23:31 05/15/23 00:08 Temperature 98.6 F Pulse Rate 78 68 Pulse Rate [Left P ulse Oximeter] 74 Pulse Rate [Right Radial] Respiratory Rate 18 18 18 Blood Pressure 140/78 H 138/75 Blood Pressure [Le ft Arm] Blood Pressure [Ri ght Upper Arm] 147/76 H Pulse Oximetry 94 93 94 Oxygen Delivery Me thod Room Air 05/15/23 00:31 05/15/23 01:01 05/15/23 02:13 Temperature Pulse Rate 74 67 65 Pulse Rate [Left P ulse Oximeter] Pulse Rate [Right Radial] Respiratory Rate 18 16 18 Blood Pressure 149/79 H 145/74 H 133/77 Blood Pressure [Le ft Arm] Blood Pressure [Ri ght Upper Arm] Pulse Oximetry 95 94 95 Oxygen Delivery Me thod 05/15/23 02:32 05/15/23 03:01 05/15/23 03:02 Temperature Pulse Rate 67 60 61 Pulse Rate [Left P ulse Oximeter] Pulse Rate [Right Radial] Respiratory Rate 16 16 Blood Pressure 140/71 H 128/67 Blood Pressure [Le ft Arm] Blood Pressure [Ri ght Upper Arm] Pulse Oximetry 94 95 94 Oxygen Delivery Me thod 05/15/23 03:20 05/15/23 03:43 05/15/23 03:54 Temperature 97.7 F Pulse Rate Pulse Rate [Left P ulse Oximeter] Pulse Rate [Right Radial] 61 Respiratory Rate 16 16 Blood Pressure 137/74 Blood Pressure [Le ft Arm] 148/76 H Blood Pressure [Ri ght Upper Arm] Pulse Oximetry 94 94 [facility] 05/15/23 04:54 05/15/23 07:30 05/15/23 08:00 Temperature Pulse Rate 61 64 Pulse Rate [Left P ulse Oximeter] Pulse Rate [Right Radial] 60 Respiratory Rate 16 Blood Pressure Blood Pressure [Le ft Arm] Blood Pressure [Ri ght Upper Arm] Pulse Oximetry Oxygen Delivery Me thod 05/15/23 08:00 05/15/23 12:00 05/15/23 15:00 Temperature 97.8 F 97.6 F Pulse Rate 64 Pulse Rate [Left P ulse Oximeter] Pulse Rate [Right Radial] 60 64 Respiratory Rate 16 16 Blood Pressure Blood Pressure [Le ft Arm] 136/69 130/69 Blood Pressure [Ri ght Upper Arm] Pulse Oximetry 96 97 Oxygen Delivery Me thod Room Air Room Air 05/15/23 15:00 Temperature Pulse Rate Pulse Rate [Left P ulse Oximeter] Pulse Rate [Right Radial] 64 Respiratory Rate 16 Blood Pressure Blood Pressure [Le ft Arm] Blood Pressure [Ri ght Upper Arm] Pulse Oximetry Oxygen Delivery Az thod DS: Data Data Completed and Pending Labs on day of discharge: Labs from last 24 hours 05/15/23 05/15/23 05/15/23 16:16 07:50 01:34 WBC 5.06 RBC 3.78 L Hgb 11.6 L 12.5 L Hct 38.3 MCV 101 H MCH 33 MCHC 33 RDW Coeff of Ziggy Plt Count 260 Neut % (Auto) Lymph % (Auto) [place] % (Auto) Eos % (Auto) Baso % (Auto) Neut # (Auto) Lymph # (Auto) [place] # (Auto) Eos # (Auto) Baso # (Auto) Abs Immat Gran (auto) Imm/Tot Granulo (auto) INR 1.00 APTT 82 H 152 H* 30 D-Dimer Quant (PE/DVT) Sodium Potassium Chloride Carbon Dioxide Anion Gap BUN Creatinine Estimated GFR Glucose Calcium Magnesium Total Bilirubin AST ALT Alkaline Phosphatase Total Protein Albumin SARS-CoV-2 (PCR) Influenza Type A (PCR) Influenza Type B (PCR) RSV (PCR) 05/14/23 05/14/23 22:09 21:30 WBC 5.32 RBC 3.61 L Hgb 12.2 L Hct 36.8 L MCV 102 H MCH 34 MCHC 33 RDW Coeff of Ziggy 13.6 Plt Count 278 Neut % (Auto) 67.6 Lymph % (Auto) 19.9 L [place] % (Auto) 9.6 Eos % (Auto) 1.9 Baso % (Auto) 0.2 Neut # (Auto) 3.60 Lymph # (Auto) 1.10 [place] # (Auto) 0.50 Eos # (Auto) 0.10 Baso # (Auto) 0.01 Abs Immat Gran (auto) 0.04 Imm/Tot Granulo (auto) 0.8 INR APTT D-Dimer Quant (PE/DVT) 1.99 H Sodium 137 Potassium 3.7 Chloride 96 Carbon Dioxide 28 Anion Gap 13 BUN 15 Creatinine 1.3 Estimated GFR 57 Glucose 110 Calcium 9.5 Magnesium 2.2 Total Bilirubin 0.8 AST 32 ALT 15 Alkaline Phosphatase 74 Total Protein 8.2 Albumin 4.3 SARS-CoV-2 (PCR) Negative SARS-CoV-2 Influenza Type A (PCR) Negative PCR FLU A Influenza Type B (PCR) Negative PCR FLU B RSV (PCR) Negative PCR RSV Discharge Plan Discharge Disposition: Home, Self-Care Date of Admission: 05/15/23 03:25 Attending Provider on Discharge: Kristyn De Leon Primary Care Provider: Provider,Not a Local Condition: Stable Anticipated Discharge Date/Time: 05/15/23 17:00 Discharge Medications: New Eliquis DVT-PE Treat 30D Start 5 mg (74 tabs) tablets,dose pack See Rx Instructions .ROUTE .COMPLEX Qty: 74 0RF Rx Instructions: orally per package directions (10mg BID x7 day, then 5mg BID) Continued tamsulosin [Flomax] 0.4 mg capsule 0.4 mg PO DAILY finasteride 1 mg tablet 1 mg PO DAILY hydrochlorothiazide 25 mg tablet 25 mg PO DAILY Discharge Orders: Discharge Order (Routine); Ordered 05/15/23 Ordered By: Kristyn De Leon Patient Education: Apixaban (By mouth) (Eliquis), Pulmonary Embolism (DC), Deep Vein Thrombosis (DC) Additional Instructions: See PCP at [facility] as scheduled to go over hospitalization, anticoagulation, followup, etc. Must return to ED with any increase in chest pain, shortness of breath, or abnormal bleeding. You received your first dose of Eliquis this evening, prescription sent to [facility] to start tomorrow morning. Activity Level: Activity as Tolerated and No strenuous activity Discharge Diet: Regular Follow Up Appointments: Provider,Not a Local [Primary Care Provider] - (Needs primary care appt for a hospital discharge followup at the [facility] in [place] (established patient) within 5-7 days. Clinic phone number is [phone] - patient already has appointment scheduled.) Forms: [employer] Info Instructions
--- NOTE | 2023-05-15 19:15 | PC.NURSE ---
DENIED PAIN OR SOB. SALINE DC'D AND REVIEWED DC INSTRUCTIONS WITH PATIENT. ADMINISTERED DOSE OF ELIQUIS PRIOR TO DC AND PATIENT DC'D HOME VIA OWN CAR.
== END 2023-05-15 18:30 | disposition home or self-care (01) ==
LOC: ED 05-15 01:13 → MEDSURG 05-15 03:28
PROVIDERS: Emergency Medicine; Family Medicine; Admitting Provider Family Medicine; Emergency Provider Student in an Organized Health Care Education/Training Program; Visit Provider Family Medicine
DX: I26.94 Multiple subsegmental thrombotic pulmonary emboli without acute cor pulmonale (principal); D53.9 Nutritional anemia, unspecified; R31.9 Hematuria, unspecified; R79.89 Other specified abnormal findings of blood chemistry; C67.9 Malignant neoplasm of bladder, unspecified; I78.0 Hereditary hemorrhagic telangiectasia; N40.0 Benign prostatic hyperplasia without lower urinary tract symptoms; I82.452 Acute embolism and thrombosis of left peroneal vein; Z90.49 Acquired absence of other specified parts of digestive tract; Z87.891 Personal history of nicotine dependence; Z11.52 Encounter for screening for COVID-19; I10 Essential (primary) hypertension; Z86.718 Personal history of other venous thrombosis and embolism; Z86.711 Personal history of pulmonary embolism
CPT/HCPCS: 36415; 71275; 80053; 83735; 84484; 85018; 85025; 85027; 85379; 85610; 85730; 87631; 93005; 93306; 93970; 96365; 96366; 96375; 99283; 99285; G0378; A9270; J1644; Q9967